=== PATIENT | female | born 1935 | race Caucasian/White ===

== ENCOUNTER → 2017-04-26 15:34 | Outpatient (CLI) | payer MEDICARE, SELFPAY ==
[2017-04-25 12:11] LABS: BUN 21 mg/dL (7-18); Creatinine, Serum 0.43 mg/dL (0.55-1.02); EST Glomerular Filtration Rate 149 mL/min (>60); Est Glom Filt Rate - Afr Amer 181 mL/min (>60)
--- NOTE | 2017-04-26 15:37 | MRI_ITS ---
STUDY: MRI LUMBAR SPINE WITH AND WITHOUT CONTRAST REASON FOR EXAM: Female, 82 years old. 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 7 ml of Gadavist contrast material was administered for the contrast portion of the examination. COMPARISON: None FINDINGS: T12-L1: Normal endplates. Normal disc height, hydration and morphology. Normal bilateral facet joints. Normal central canal and bilateral lateral recesses. Normal bilateral intervertebral neural foramina. Normal lumbar lordosis. There is no substantial scoliosis. Normal conus medullaris that terminates at the L1 level. L1-2: Normal endplates. Normal disc height, hydration and morphology. Normal bilateral facet joints. Normal central canal and bilateral lateral recesses. Normal bilateral intervertebral neural foramina. L2-3: Endplate spondylosis. Decreased disc height and small circumferential disc bulge. Degenerative changes of the bilateral facet joints. Mild narrowing of the central canal and bilateral intervertebral neural foramina. L3-4: Endplate spondylosis. Decreased disc height and small circumferential disc bulge. Degenerative changes of the bilateral facet joints. Mild narrowing of the central canal and bilateral intervertebral neural foramina. L4-5: Bilateral laminectomy and posterior fusion. Spinal canal and neuroforamina are not significantly narrowed. L5-S1: Endplate spondylosis. Central and paracentral disc herniation more prominent on the right side impinging on the right S1 nerve root. Degenerative changes of the bilateral facet joints. Mild narrowing of the central canal. Mild left and moderate right Intervertebral neural foramina. Normal visualized sacral ala. There is a right renal cyst. MRI/Spine Lumbar W/WO Contrast IMPRESSION: Multilevel degenerative changes, as described above. Bilateral laminectomy and posterior fusion at L4-5. Electronically Signed: Paula Hoff MD at 6:42 EST Tel , Service support ,
== END ==
PROVIDERS: Family Provider Family Medicine; PCP Family Medicine
DX: M43.16 Spondylolisthesis, lumbar region (principal)
CPT/HCPCS: 36415; 72158; 82565; 84520; A9585

== ENCOUNTER → 2017-05-30 10:19 | Outpatient (CLI) | payer MEDICARE, SELFPAY ==
--- NOTE | 2017-05-30 10:32 | MRI_ITS ---
STUDY: MRI CERVICAL SPINE WITHOUT CONTRAST REASON FOR EXAM: Female, 82 years old. Cervical spondylosis with leg weakness and difficulty walking. TECHNIQUE: Standardized fat and water weighted pulse sequences were obtained in the sagittal and axial planes. COMPARISON: MRI CERVICAL SPINE-October 30, 2015 FINDINGS: Normal foramen magnum and brainstem-cervical cord junction. Normal craniovertebral junction. There is hypertrophy of the transverse ligament of the atlas with mild posterior displacement of the superior and inferior longitudinal fibers of the cruciform ligament, producing minimal ventral thecal sac flattening, but without cervical cord impingement. There are mild degenerative changes in the anterior atlantoaxial articulation (sagittal T2 series 2, image 8), unchanged compared the prior examination of October 31, 2015. Normal odontoid process. Normal cervical lordosis. Normal vertebral bodies and posterior osseous elements. C2-3: Normal endplates. Normal disc height, signal and morphology. Normal central canal and intervertebral neural foramina. C3-4: There is disc desiccation, preservation of the disc height with minimal annular bulging. There is severe left-sided foraminal stenosis secondary to uncovertebral and apophyseal joint arthroses (axial T2 series 7, image 114), with probable neural impingement upon the exiting left C4 nerve root. Normal central canal with widely patent right C3-4 intervertebral neural foramina. C4-5: There is disc desiccation, preservation disc height without disc displacement. There is mild to moderate bilateral apophyseal joint arthroses (left greater than right), producing minimal left-sided foraminal stenosis but without suspected neural impingement. C5-6: There is disc desiccation, preservation disc height without disc displacement. Normal central canal and intervertebral neural foramina. C6-7: There is disc desiccation, preservation disc height, with a posterior right central extremely small broad-based disc protrusion measuring 2 x 8 mm (AP x transverse), which is visually unchanged in size as compared the prior examination of October 30, 2015. The difference in the measurement size of the disc protrusion is an interobserver variance. This small disc protrusion is producing minimal ventral thecal sac flattening, without cervical cord or radicular impingement. There remains a normal central canal patent intervertebral neural foramina. C7-T1: Normal endplates. Normal disc height, signal and morphology. Normal central canal and intervertebral neural foramina. Normal cervical cord. Normal visualized soft tissue structures. MRI/Spine Cervical (Routine) IMPRESSION: 1. Mild degenerative changes of the anterior atlantoaxial articulation. 2. Multilevel degenerative disc disease. 3. C3-4 severe left-sided foraminal stenosis, secondary to uncovertebral and apophyseal joint arthrosis, with probable neural impingement upon the exiting left C4 nerve root. 4. C4-5 mild to moderate bilateral apophyseal joint arthrosis but without suspected neural impingement. 5. C6-7 small posterior right central disc protrusion producing minimal ventral thecal sac flattening, unchanged as compared to prior examination of October 30, 2015, without cervical cord or radicular impingement. 6. Electronically Signed: Ignacio Colorado DO at 12:19 EDT Tel , Service support ,
== END ==
PROVIDERS: Family Provider Family Medicine; PCP Family Medicine
DX: M80.00XD Age-related osteoporosis with current pathological fracture, unspecified site, subsequent encounter for fracture with routine healing (principal); M47.12 Other spondylosis with myelopathy, cervical region
CPT/HCPCS: 72141

== ENCOUNTER → 2017-06-09 09:08 | Outpatient (CLI) | payer MEDICARE, SELFPAY ==
[2017-06-09 12:10] LABS: Absolute Lymphocyte Count 1.44 X10^3/ul (0.83-4.51); Absolute Neutrophil Count 3.6 X10^3/uL (2.0-7.7); Basophil# 0.03 X10^3/uL; Basophil% 0.5 % (0-1); Eosinophil# 0.17 X10^3/uL; Eosinophils% 2.9 % (0-5); Hematocrit 39.6 % (37-47); Hemoglobin 12.7 g/dl (12.0-15.0); Lymphocyte # 1.44 X10^3/ul (4.0); Lymphocyte % 24.8 % (19-41); Mean Corp Hgb Conc 32.1 g/gl (32-36); Mean Corpuscular Hgb 28.7 pg (27.0-32.0); Mean Corpuscular Volume 89.4 fL (81-99); Monocyte# 0.58 X10^3/uL; Neutrophil # 3.57 X10^3/uL (2.7-7.7); Neutrophil % 61.6 % (47-70); Platelet Count 303 K/mm3 (150-450); RBC Distribution Width CV 13.3 % (11.6-14.6); RBC Distribution Width SD 42.7 fl (35.1-43.9); Red Blood Count 4.43 M/mm3 (4.2-5.4); White Blood Count 5.8 K/mm3 (4.4-11.0)
[2017-06-09 12:15] LABS: POSITIVE COUNT NO; POSITIVE DIFFERENTIAL NO; POSITIVE MORPHOLOGY NO
[2017-06-09 12:54] LABS: AST(SGOT) 23 U/L (15-37); Alanine Aminotransfer ALT/SGPT 23 U/L (13-56); Albumin, Serum 3.9 g/dL (3.2-5.0); Alkaline Phosphatase 77 U/L (45-117); Anion Gap 7 (5-15); BUN 20 mg/dL (7-18); BUN/Creat Ratio 46.5 RATIO (10-20); Calcium,Total 9.6 mg/dL (8.5-10.1); Chloride 105 mmol/L (98-107); Cholesterol 282 mg/dL (200); Creatinine, Serum 0.43 mg/dL (0.55-1.02); EST Glomerular Filtration Rate 150 mL/min (>60); Est Glom Filt Rate - Afr Amer 182 mL/min (>60); Globulin 3.9 g/dL (2.2-4.2); Glucose 87 mg/dL (74-106); High Density Lipoprotein 65 mg/dL; Magnesium 2.2 mg/dL (1.6-2.6); Potassium 3.7 mmol/L (3.5-5.1); Protein, Total 7.8 g/dL (6.4-8.2); Sodium Level 140 mmol/L (136-145); T4 Free Direct 1.37 ng/dL (0.76-1.46); Thyroid Stim Hormone (TSH) 1.03 uIU/mL (0.358-3.74); Triglycerides 217 mg/dL; Very Low Density Lipoprotein 43 mg/dL (5-40)
[2017-06-10 10:41] LABS: Vitamin D,25 Hydroxy 46.4 ng/mL (29.95-100.01)
== END ==
PROVIDERS: Family Provider Family Medicine; PCP Family Medicine; Visit Provider Family Medicine
DX: I10 Essential (primary) hypertension (principal); E11.9 Type 2 diabetes mellitus without complications; I51.81 Takotsubo syndrome; E55.9 Vitamin D deficiency, unspecified; R00.2 Palpitations; E78.5 Hyperlipidemia, unspecified; Z79.899 Other long term (current) drug therapy
CPT/HCPCS: 36415; 80053; 80061; 82306; 83735; 84439; 84443; 85025

== ENCOUNTER → 2017-06-13 11:25 | Outpatient (CLI) | payer MEDICARE, SELFPAY | PROVIDERS: Family Provider Family Medicine; PCP Family Medicine; Visit Provider Family Medicine | DX: I51.81 Takotsubo syndrome (principal); R00.2 Palpitations | CPT/HCPCS: 93225; 93226 ==

== ENCOUNTER → 2017-06-21 10:45 | Outpatient (CLI) | payer MEDICARE, SELFPAY ==
[2017-06-21 12:47] LABS: Cholesterol 295 mg/dL (200); High Density Lipoprotein 72 mg/dL; Triglycerides 160 mg/dL; Very Low Density Lipoprotein 32 mg/dL (5-40)
== END ==
PROVIDERS: Family Provider Family Medicine; PCP Family Medicine; Visit Provider Family Medicine
DX: E11.9 Type 2 diabetes mellitus without complications (principal); E78.5 Hyperlipidemia, unspecified
CPT/HCPCS: 36415; 80061

== ENCOUNTER 2017-08-01 10:30 | Outpatient (RCR) | payer MEDICARE, SELFPAY ==
--- NOTE | 2017-07-05 11:57 | HP.PTEVAL ---
Patient's Visit Information DELFINA AVILA is a 82 year old F referred to Physical Therapy by J CARLOS CHEN with a diagnosis of SPONDYLOLITHESIS L45. Date of Evaluation: 07/05/17 Physical Therapist: Leatha Damon - Visit Plan Frequency: 2x /Week Duration: 4-6 Weeks Plan: AQUATIC THERAPY ONE TIME A WEEK ON LAND AND ONE TIME A WEEK IN THE POOL FOR POSTURE CORRECTION/STRENGTHENING, INSTRUCTION IN APPROPRIATE BODY MECHANICS AND ACTIVITY MODIFICATIONS. DLS STARTING WITH A NEUTRAL SPINE PROGRESSING ROM TOLERATED. DYLAN LE ROM, STRETCHING AND STRENGTHENING. HEP INSTRUCTION. PATIENT IS AGREEABLE WITH THIS POC. - Subjective Subjective: THIS PATIENT PRESENTS TO PT REPORTING SHE NEEDS TO GET SERIOUS ABOUT STENGTHEING AGAIN. STATES SHE HAD A FOLLOW UP WITH HER BACK SURGEON AND IS GOING TO SEE AN MARINE FUEL DOCK ATTENDANT ABOUT HER OSTEOPOROSIS. SHE REPORTS SHE HAD BEEN DOING HER HOME EX'S BUT NOT COMING IN TO [place] AND USING THE MACHINES. STATES THAT SHE FORGETS HOW TO DO SOME OF THE MACHINES. PATIENT REPORTS UP TO 6/10 LOW BACK PAIN. HER LOW BACK PAIN COMES AND GOES. SHE ALSO GETS SOME INTERMITTENT PAIN IN HER HIPS AND LEGS BUT HER CHIEF COMPLAINT IS LOW BACK PAIN. WORSE: PROLONGED STANDING AND WALKING. IN THE MORNING. BETTER: SITTING AND LYING DOWN. PATIENT DENIES ANY SIGNIFICANT CHANGES IN HER MEDICAL HISTORY SINCE HER LAST EPISODE OF CARE HERE IN PT. SHE REPORTS THE BACK SURGEON WANTS HER TO KEEP WEARING THE MAGNETIC BELT TO TRY TO PROMOTE MORE HEALING. - Objective THIS PATIENT AMBULATES INDEP'LY INTO PT WITH A FWW X > 300 FEET WITH FAIR CADANCE AND WITHOUT LOB. SHE IS WELL KNOW TO OUR DEPARTMENT. PLEASE SEE PAST PT NOTES FROM AFTER HER BACK AND HIP SURGERY. SHE WALKS WITH INCREASED TRUNK FLEXION AND DECREASED DYLAN STRIDE LENGTH STILL WALKING WITH A SHUFFLE TYPE GAIT PATTERN. PATIENT IS UNABLE TO TRANSFER FROM SIT TO STAND WITHOUT UE ASSIST. LUMBAR MVMT LOSS: MAJOR IN ALL PLANES EXCEPT FLEX WHICH IS MODERATE. DYLAN LE WEAKNESS: STRENGTH IN LE'S IS GROSSLY 5/5 WITH MMT'ING EXCEPT HIPS WHICH ARE GRADED 3+ TO 4-/5. PATIENTS HIP EXTENSORS AND ABDUCTORS ARE ESPECIALLY WEEK. - Goals Goal 1:: DECREASE C/O BACK AND LE SX'S. Goal Time Frame: 4-6 Weeks Goal 2:: IMPROVE PERSONAL CARE, LIFTING, WALKING, STANDING, SOCIAL LIFE AND HOMEMAKING FUNCTION. Goal Time Frame: 4-6 Weeks Goal 3:: INDEP LAND AND WATER EX PROGRAMS Goal Time Frame: 4-6 Weeks - Rehabilitation Potential Rehabilitation Potential: Fair - Anticipated Interventions Patient/Client Instruction: Educate patient on: Condition, Plan of Care, Risk Factors, Benefits of Fitness Program For the Purpose of:: To improve self management Therapeutic Exercise to Include: Strength training, Body mechanics, Postural training, Flexibilty training, Gait and locomotor training, In an aquatic setting, Dynamic Lumbar Stabilization For the Purpose of:: To decrease pain, To improve muscle performance and motor function, To increase tolerance to activity/condition/position, To improve performance and independence with ADL's, To improve ability of physical actions for home/community/work/leisure, To improve gait and locomotor functions Thank you for the opportunity to evaluate your patient. For Medicare and Medicare HMO plans, please review the plan of care and approve it. It will need to be FAXED BACK to us at [phone] for Medicare purposes. Please let me know if there are questions or concerns regarding this plan of care. Physician Signature: Date:
--- NOTE | 2017-08-01 12:59 | HP.PTDCSUM_ITS ---
HP - PT D/C Summary It has been my pleasure to treat DELFINA AVILA under orders from J CARLOS CHEN, for the diagnosis of SPONDYLOLITHESIS L45 for a total of 10 visit(s). Discharge Date: Please see the following information for a summary of their discharge status. - Subjective Subjective: PATIENT REPORTS SHE CAN DO HER WATER EX PROGRAM BY FOLLOWING HER SHEET NOW. SHE ALSO REPORTS BEING ABLE TO USE ALL OF THE MACHINES AND JUST NEEDS SOMEONE TO HELP OR DOUBLE CHECK SET UP ON 2 OF THEM. SHE STATES SHE PLANS TO COME AND DO HER POOL EX'S 2-3 TIMES A WEEK AND LAND IN BETWEEN SHE JUST DOESN'T LIKE OUR POOL HOURS. SHE IS EXPRESSING APPRECIATION FOR US HELPING HER RESUME EX. SHE STATES SHE IS STILL USING THE WALKER ALMOST ALL THE TIME. HAVING UP TO 6/10 LOW BACK PAIN THAT MAILY COMES WITH FATIGUE BUT STATES SHE IS PAINFREE MOST OF THE TIME IN SITTING AND LYING. - Pain Lumbar Spine Pain Intensity (Out of 10): 0 - Objective Objective/Function: UPON EXAM, THERE IS NO SIGNIFICANT CHANGE SINCE INITIAL EVAL BUT PATIENT IS MORE INDEP WITH RESUMING BOTH LAND AND WATER PRIOR EX PROGRAMS AGAIN TO A DEGREE AND HAS BEEN ADVISED OF APPROPRIATE EX'S. SHE MAY BENEFIT FROM HIRING A EMPLOYMENT PROGRAMS ANALYST TO HELP HER SET UP MACHINES OR HELP HER FOLLOW THE WRITTEN POOL AND LAND PROGRAMS THAT SHE HAS BEEN GIVEN. SHE HAS ALSO BEEN ADVISED OF CONTINUED RECOMMENDATION OF WALKER FOR SAFETY. THIS PATIENT AMBULATES INDEP'LY INTO PT WITH A FWW X > 300 FEET WITH FAIR CADANCE AND WITHOUT LOB. SHE WALKS WITH MILD INCREASED TRUNK FLEXION AND DECREASED DYLAN STRIDE LENGTH STILL WALKING WITH A SHUFFLE TYPE GAIT PATTERN. PATIENT IS UNABLE TO TRANSFER FROM SIT TO STAND WITHOUT UE ASSIST. LUMBAR MVMT LOSS: MAJOR IN ALL PLANES EXCEPT FLEX WHICH IS MODERATE. DYLAN LE WEAKNESS: STRENGTH IN LE'S IS GROSSLY 5/5 WITH MMT'ING EXCEPT HIPS WHICH ARE GRADED 4-/5. LUMBAR OSWESTRY SCORE HAS ONLY CHANGED FROM 20 TO 19. - Goals Goal 1:: DECREASE C/O BACK AND LE SX'S. Goal Progress: Not Progressing Goal 2:: IMPROVE PERSONAL CARE, LIFTING, WALKING, STANDING, SOCIAL LIFE AND HOMEMAKING FUNCTION. Goal Progress: Not Progressing Goal 3:: INDEP LAND AND WATER EX PROGRAMS Goal Progress: Goal Met - Plan Plan: D/C TO INDEP LAND AND WATER EX. PROGRAMS. - D/C Information If there are questions or concerns regarding this patient's physical therapy, please feel free to call me at [phone]. Thank you for the referral of this patient. Sincerely, Leatha Damon
== END 2017-08-01 19:00 | disposition home or self-care (01) ==
LOC: PT 10:30
PROVIDERS: Family Provider Family Medicine; PCP Family Medicine
DX: M43.16 Spondylolisthesis, lumbar region (principal)
CPT/HCPCS: 97110; 97113; 97162; 97530

== ENCOUNTER 2017-08-07 22:24 | Emergency (ER) | payer MEDICARE, SELFPAY ==
--- NOTE | 2017-08-07 | CT_ITS ---
STUDY: CT ABDOMEN AND PELVIS WITHOUT CONTRAST REASON FOR EXAM: Female, 82 years old. Blood in stool with diarrhea RADIATION DOSAGE (If Supplied By Facility): CTDIvol = ( 7.85 ) mGy, DLP = ( 394.18 ) mGycm TECHNIQUE: Transaxial 2.5 mm images were obtained from the dome of the diaphragm to the symphysis pubis with oral contrast, and without intravenous contrast. Sagittal and coronal images were reconstructed. This examination is limited for the evaluation of gastrointestinal, solid organs and vascular structures due to the lack of intravenous contrast. Individualized dose optimization techniques were used for this CT. COMPARISON: CT lumbar spine 2015. MRI lumbar spine 04/26/2017. FINDINGS: Marked hyperinflation of lung parenchyma, nonspecific compression of dependent parenchyma, fat-containing right posterior diaphragmatic hernia. The visualized portions of the heart are within normal limits. Normal liver. There is non-visualization of the gallbladder, which may be secondary to either contraction or a prior cholecystectomy. There are multiple benign calcified granulomata of the spleen and liver. There is diffuse atrophy of the pancreas. There is a duodenal diverticulum. Normal bilateral adrenal glands. Right upper renal pole cyst 4.2 cm. Normal left kidney. There is no obstructive uropathy, obstructive renal or ureteral calculi. Normal visualized stomach. Normal small intestine. There is a mobile cecum. There is wall thickening and edema with indistinct contour along the descending, less sigmoid colon. There are predominantly sigmoid diverticula. The appendix is visualized and appears normal. There is minimal atherosclerotic calcification of the abdominal aorta, without a demonstrated aneurysm. Normal inferior vena cava. Normal retroperitoneum. Normal urinary bladder. There is atrophy of the uterus. There is trace pelvic fluid. Normal abdominal wall. There are diffuse degenerative changes of the visualized lumbar spine. Status post total right hip arthroplasty, ORIF of the left femur, status post laminectomy with pedicle fusion L4 and L5 with disc spacer placement, osteopenia. Grade 1 anterolisthesis L4 on L5. There is loss of vertebral body height involving the L5 vertebral body which is new since 10/2015.. CT/Abdomen/Pel W ORAL Cont Only IMPRESSION: Colitis of the descending colon, possible minimal inflammation of the sigmoid colon. There are diverticula, however this may be due to non diverticular inflammatory changes. There is no appendicitis, ascites, abscess, collection, perforation or obstruction. Right renal cyst. Remote granulomatous exposure. Trace pelvic fluid likely related to colonic inflammation. Postsurgical lumbar spine changes, loss of vertebral body height L5 which is stable since MRI lumbar spine 04/26/2017. Other nonacute findings as outlined above. Electronically Signed: Lynda Sanchez MD at 3:23 EDT , Service support ,
[2017-08-07 22:25] VITALS: BP 109/60; PULSE 47; RESP 16; TEMP 36.9; O2SAT 98; BMI 19.8
[2017-08-07 22:58] LABS: Absolute Lymphocyte Count 2.19 X10^3/ul (0.83-4.51); Absolute Neutrophil Count 11.7 X10^3/uL (2.0-7.7); Basophil# 0.03 X10^3/uL; Basophil% 0.2 % (0-1); Eosinophil# 0.09 X10^3/uL; Eosinophils% 0.6 % (0-5); Hematocrit 44.3 % (37-47); Hemoglobin 14.5 g/dl (12.0-15.0); Lymphocyte # 2.19 X10^3/ul (4.0); Lymphocyte % 14.3 % (19-41); Mean Corp Hgb Conc 32.7 g/gl (32-36); Mean Corpuscular Hgb 28.6 pg (27.0-32.0); Mean Corpuscular Volume 87.4 fL (81-99); Mean Platelet Vol. 9.4 fl (6.2-12.0); Monocyte# 1.28 X10^3/uL; Monocyte% 8.4 % (0-10); Neutrophil # 11.66 X10^3/uL (2.7-7.7); Neutrophil % 76.4 % (47-70); Platelet Count 283 K/mm3 (150-450); RBC Distribution Width CV 12.9 % (11.6-14.6); Red Blood Count 5.07 M/mm3 (4.2-5.4); White Blood Count 15.3 K/mm3 (4.4-11.0)
[2017-08-07] MEDS: 0.9% Normal Saline 1,000 ML 125 ML IV (22:59)
[2017-08-07 23:10] LABS: Prothrombin Time (Protime)PT. 13.3 SECONDS (11.7-14.9)
[2017-08-07 23:11] LABS: POSITIVE COUNT NO; POSITIVE DIFFERENTIAL NO; POSITIVE MORPHOLOGY NO
--- NOTE | 2017-08-07 23:12 | ED.VISSUMM ---
- ER Visit Summary Date of Service: 08/07/17 Chief Complaint: [] Lower GI bleed History of Present Illness: The patient is a 82 F [] complaining of lower GI bleed beginning yesterday. She reports she noticed originally dark tarry stools which then progressed to bright red blood. She reports she had another significant bloody bowel movement prior to arrival prompting her visit today to the emergency department. Denies previous history of GI bleed. Reports abdominal cramping. Denies nausea or vomiting. Denies chest pain or shortness of breath. Physical Examination: [] Afebrile, vital signs stable. 82-year-old female no acute distress. Conversational. Cardiovascular exam is regular rate and rhythm. Lungs are clear to auscultation. Abdomen is soft with mild lower abdominal quadrant cramping. She has small external nonthrombosed nonbloody hemorrhoids with obvious blood on digital rectal examination. No lower extremity edema. Test Results: [] CT abdomen/pelvis with p.o. contrast: Suggestive of colitis. Labs: Elevated white blood cell count 15.3. Hemoglobin 14.5. BUN 24 otherwise elect lites are normal. LFTs normal. INR 1.0. Lactic acid 2.0 #1. Repeat lactic acid was 1.1. EKG: Normal sinus rhythm, rate 71 with no ischemic changes or ectopy. Emergency Department Course and Treatment: [] Patient was evaluated for lower GI bleed. She was observed in the emergency department for approximately 8 hours. She had no further bowel movements. She did have one nonbloody bowel movement. She is hemodynamically stable. She underwent CT of the abdomen and pelvis with p.o. contrast reveals inflammation of the bowel consistent with colitis. She was given intravenous Cipro and intravenous Flagyl. She will be given instructions for follow-up with gastroenterology. She will be given outpatient prescriptions for Cipro and Flagyl and instructed to return should she have further bloody bowel movements. Treatment Plan: [] Follow-up with PCP and/or power brake operator. Prescriptions for Cipro and Flagyl. Disposition: [] Discharge, stable. Impression: [] Colitis. Lower GI bleed This note was generated with [employer] software. It may contain incorrect words, spelling, and punctuation that were not noted in review of the chart prior to signing ED Disposition - Plan for ED Patient: Chief Complaint: GI Bleed Referrals: Bill Castaneda MD [Primary Care Provider] -
--- NOTE | 2017-08-07 23:15 | ED.DCSUM_ITS ---
- ER Visit Summary Date of Service: 08/07/17 Chief Complaint: [] Lower GI bleed History of Present Illness: The patient is a 82 F [] complaining of lower GI bleed beginning yesterday. She reports she noticed originally dark tarry stools which then progressed to bright red blood. She reports she had another significant bloody bowel movement prior to arrival prompting her visit today to the emergency department. Denies previous history of GI bleed. Reports abdominal cramping. Denies nausea or vomiting. Denies chest pain or shortness of breath. Physical Examination: [] Afebrile, vital signs stable. 82-year-old female no acute distress. Conversational. Cardiovascular exam is regular rate and rhythm. Lungs are clear to auscultation. Abdomen is soft with mild lower abdominal quadrant cramping. She has small external nonthrombosed nonbloody hemorrhoids with obvious blood on digital rectal examination. No lower extremity edema. Test Results: [] CT abdomen/pelvis with p.o. contrast: Suggestive of colitis. Labs: Elevated white blood cell count 15.3. Hemoglobin 14.5. BUN 24 otherwise elect lites are normal. LFTs normal. INR 1.0. Lactic acid 2.0 #1. Repeat lactic acid was 1.1. EKG: Normal sinus rhythm, rate 71 with no ischemic changes or ectopy. Emergency Department Course and Treatment: [] Patient was evaluated for lower GI bleed. She was observed in the emergency department for approximately 8 hours. She had no further bowel movements. She did have one nonbloody bowel movement. She is hemodynamically stable. She underwent CT of the abdomen and pelvis with p.o. contrast reveals inflammation of the bowel consistent with colitis. She was given intravenous Cipro and intravenous Flagyl. She will be given instructions for follow-up with gastroenterology. She will be given outpatient prescriptions for Cipro and Flagyl and instructed to return should she have further bloody bowel movements. Treatment Plan: [] Follow-up with PCP and/or stock handler. Prescriptions for Cipro and Flagyl. Disposition: [] Discharge, stable. Impression: [] Colitis. Lower GI bleed This note was generated with [employer] software. It may contain incorrect words, spelling, and punctuation that were not noted in review of the chart prior to signing ED Disposition - Plan for ED Patient: Chief Complaint: GI Bleed Referrals: Bill Castaneda MD [Primary Care Provider] -
[2017-08-07 23:24] LABS: ALB/GLOB Ratio 0.9 RATIO (0.9-2.4); AST(SGOT) 18 U/L (15-37); Alanine Aminotransfer ALT/SGPT 21 U/L (13-56); Albumin, Serum 3.7 g/dL (3.2-5.0); Alkaline Phosphatase 75 U/L (45-117); Anion Gap 7 (5-15); BUN 24 mg/dL (7-18); BUN/Creat Ratio 29.5 RATIO (10-20); Calcium,Total 9.6 mg/dL (8.5-10.1); Chloride 103 mmol/L (98-107); Creatinine, Serum 0.81 mg/dL (0.55-1.02); EST Glomerular Filtration Rate 72 mL/min (>60); Est Glom Filt Rate - Afr Amer 87 mL/min (>60); Estimated Creatinine Clearance 45.74 ml/min; Globulin 3.9 g/dL (2.2-4.2); Glucose 149 mg/dL (74-106); Potassium 3.7 mmol/L (3.5-5.1); Protein, Total 7.6 g/dL (6.4-8.2); Sodium Level 138 mmol/L (136-145)
[2017-08-08 02:14] VITALS: BP 165/92; PULSE 75; RESP 16; O2SAT 97
[2017-08-08 03:05] LABS: Reflex Lactate? Y
[2017-08-08] MEDS: Ciprofloxacin 400 MG/200 ML BAG 200 MG IV (03:35)
[2017-08-08 04:39] VITALS: RESP 18
[2017-08-08 04:44] LABS: Lactic Acid 1.1 mmol/L (0.4-2.0)
--- NOTE | 2017-08-08 06:21 | ED.DEP ---
ED Disposition - Plan for ED Patient: Disposition: Home or Assisted Living Chief Complaint: GI Bleed Instructions: ED Hematochezia Stable Prescriptions: Metronidazole [Flagyl] 500 mg PO Q8H #21 tab Ciprofloxacin [Cipro] 500 mg PO BID #14 tab Referrals: Bill Castaneda MD [Primary Care Provider] -
[2017-08-08 06:43] VITALS: BP 139/77; PULSE 58; RESP 18; O2SAT 99
== END 2017-08-08 06:46 | disposition home or self-care (01) ==
PROVIDERS: Emergency Provider Emergency Medicine; Family Provider Family Medicine; PCP Family Medicine
DX: K92.2 Gastrointestinal hemorrhage, unspecified (principal); K52.9 Noninfective gastroenteritis and colitis, unspecified; K64.4 Residual hemorrhoidal skin tags; K21.9 Gastro-esophageal reflux disease without esophagitis; I10 Essential (primary) hypertension; Z79.899 Other long term (current) drug therapy; Z79.82 Long term (current) use of aspirin
CPT/HCPCS: 74176; 80053; 82274; 83605; 85025; 85610; 93005; 99283; J7030; A4216; J0744

== ENCOUNTER → 2017-09-20 10:48 | Outpatient (CLI) | payer MEDICARE, SELFPAY ==
[2017-09-20 12:10] LABS: Absolute Lymphocyte Count 1.56 X10^3/ul (0.83-4.51); Absolute Neutrophil Count 3.4 X10^3/uL (2.0-7.7); Basophil# 0.02 X10^3/uL; Basophil% 0.4 % (0-1); Eosinophils% 1.8 % (0-5); Hematocrit 41.7 % (37-47); Hemoglobin 13.6 g/dl (12.0-15.0); Lymphocyte # 1.56 X10^3/ul (4.0); Lymphocyte % 27.8 % (19-41); Mean Corp Hgb Conc 32.6 g/gl (32-36); Mean Corpuscular Hgb 28.9 pg (27.0-32.0); Mean Corpuscular Volume 88.7 fL (81-99); Mean Platelet Vol. 10.2 fl (6.2-12.0); Monocyte# 0.55 X10^3/uL; Monocyte% 9.8 % (0-10); Neutrophil # 3.39 X10^3/uL (2.7-7.7); Neutrophil % 60.2 % (47-70); POSITIVE COUNT NO; POSITIVE DIFFERENTIAL NO; POSITIVE MORPHOLOGY NO; Platelet Count 276 K/mm3 (150-450); RBC Distribution Width SD 42.2 fl (35.1-43.9); White Blood Count 5.6 K/mm3 (4.4-11.0)
[2017-09-20 12:33] LABS: Anion Gap 8 (5-15); BUN 18 mg/dL (7-18); BUN/Creat Ratio 33.3 RATIO (10-20); Calcium,Total 9.9 mg/dL (8.5-10.1); Chloride 106 mmol/L (98-107); Creatinine, Serum 0.54 mg/dL (0.55-1.02); EST Glomerular Filtration Rate 115 mL/min (>60); Est Glom Filt Rate - Afr Amer 140 mL/min (>60); Glucose 85 mg/dL (74-106); Potassium 4.1 mmol/L (3.5-5.1); Sodium Level 143 mmol/L (136-145); Thyroid Stim Hormone (TSH) 0.38 uIU/mL (0.358-3.74)
[2017-09-20 12:35] LABS: Hemoglobin A1c 5.6 % (4.2-6.3)
== END ==
PROVIDERS: Visit Provider Family Medicine
DX: E11.9 Type 2 diabetes mellitus without complications (principal); E55.9 Vitamin D deficiency, unspecified; E78.5 Hyperlipidemia, unspecified; I10 Essential (primary) hypertension
CPT/HCPCS: 36415; 80048; 82306; 83036; 84439; 84443; 85025

== ENCOUNTER → 2017-12-19 09:50 | Outpatient (CLI) | payer MEDICARE, SELFPAY ==
[2017-12-19 10:55] LABS: AST(SGOT) 18 U/L (15-37); Alanine Aminotransfer ALT/SGPT 19 U/L (13-56); Albumin, Serum 3.8 g/dL (3.2-5.0); Alkaline Phosphatase 70 U/L (45-117); Cholesterol 244 mg/dL (200); Globulin 3.7 g/dL (2.2-4.2); High Density Lipoprotein 66 mg/dL; Protein, Total 7.5 g/dL (6.4-8.2); Triglycerides 198 mg/dL; Very Low Density Lipoprotein 40 mg/dL (5-40)
== END ==
PROVIDERS: Family Provider Family Medicine; PCP Family Medicine; Referring Provider Internal Medicine Cardiovascular Disease; Visit Provider Internal Medicine Cardiovascular Disease
DX: E78.5 Hyperlipidemia, unspecified (principal); I25.2 Old myocardial infarction; E11.51 Type 2 diabetes mellitus with diabetic peripheral angiopathy without gangrene; E11.9 Type 2 diabetes mellitus without complications
CPT/HCPCS: 36415; 80061; 80076

== ENCOUNTER 2018-01-17 11:40 | Emergency (ER) | payer MEDICARE, SELFPAY ==
[2018-01-17 11:41] VITALS: BP 165/74; PULSE 66; RESP 15; TEMP 36.9; O2SAT 98; BMI 24.7
--- NOTE | 2018-01-17 12:50 | ED.DCSUM_ITS ---
- ER Visit Summary Date of Service: 01/17/18 Chief Complaint: Fell getting out of the shower History of Present Illness: The patient is a 82 F past medical history of diet- controlled diabetes, A. fib on no blood thinners besides aspirin and hypertension. States she was getting out of shower today slipped fell landing on her buttock. Struck her head. No LOC. She is only on half a baby aspirin a day. She denies any headache. She denies any LOC. She did. By is some mild low back pain. She denies any hip or pelvis pain. Physical Examination: Older female. Vital signs are stable afebrile. She is in no distress. H EENT exam pupils round reactive light. As mentioned trauma to her face or scalp. Scalp nontender. No hematomas. No lacerations. C-spine nontender. Trachea midline. Lungs clear to auscultation bilaterally. Heart regular rhythm no murmur. Chest wall nontender. Abdomen soft nontender. Normal bowel sounds no peritoneal signs. Pelvic girdle intact. She is moving all 4 extremities. She has some numbness or lower extremities which is chronic. Dorsi and plantar flexion are intact. She can lift either leg off the bed. Upper extremities are nontender normal range of motion normal security support analyst strength. Back no signs of trauma. Mild tenderness over her lower lumbar spine. No ecchymosis or bruising. Neurologically she is awake and alert. With no focal motor deficits. Test Results: Lumbar spine x-rays show pneumonia. Status post L4-5 laminectomy. Emergency Department Course and Treatment: Patient did not want anything for pain at this time. Later in the patient's ER visit nurse was able to get her up and have her walk to the bathroom with assistance. She could also use her walker like she does at home. Treatment Plan: Patient will be discharged to home. Tylenol for pain. Disposition: Discharge Impression: Acute fall with lumbar contusion This note was generated with [employer] dictation software. It may contain incorrect words, spelling, and punctuation that were not noted in review of the chart prior to signing ED Disposition - Plan for ED Patient: Chief Complaint: Fall Referrals: Bill Castaneda MD [Primary Care Provider] -
[2018-01-17 13:31] VITALS: O2SAT 98
--- NOTE | 2018-01-17 13:45 | RAD_ITS ---
STUDY: X-RAY - LUMBAR SPINE REASON FOR EXAM: Female, 82 years old. History of fall. TECHNIQUE: 3 view(s) of the lumbar spine were obtained. COMPARISON: None FINDINGS: Normal lumbar lordosis. There is no substantial scoliosis. There is a normal alignment of the vertebrae. The patient is status post laminectomy and interpedicular screw fixation at the L4-L5 level. Prosthetic disc spacer is seen. The patient is status post right total hip replacement. The soft tissue structures are unremarkable. RAD/Lumbar Spine 2 or 3 Views IMPRESSION: Status post laminectomy and fusion at the L4-L5 level. Electronically Signed: Javier Ledbetter MD at 14:15 EST Tel [phone], Service support ,
--- NOTE | 2018-01-17 13:47 | EKG12_ITS ---
Test Reason : FALL Blood Pressure : / mmHG Vent. Rate : 059 BPM Atrial Rate : 059 BPM P-R Int : 170 ms QRS Dur : 096 ms QT Int : 436 ms P-R-T Axes : 058 -14 060 degrees QTc Int : 431 ms Sinus bradycardia Otherwise normal ECG Confirmed by PRANEETH QUEEN, ROCHELLE ([id number]), assistant film editor KIA PIKE ([id number] on 01/19/2018 3:24:05 PM Referred By: ZOILA Confirmed By:ROCHELLE DACOSTA MD
[2018-01-17 14:20] VITALS: BP 138/79; PULSE 67; RESP 15; O2SAT 97
[2018-01-17] MEDS: Ondansetron ODT 4 MG Tablet PO (14:33)
--- NOTE | 2018-01-17 15:43 | ED.DEP ---
ED Disposition - Plan for ED Patient: Disposition: Home or Assisted Living Chief Complaint: Fall Instructions: ED Mechanical Fall, ED Contusion Back Referrals: Bill Castaneda MD [Primary Care Provider] - Additional Instructions: He still sores. Tylenol for pain. Follow-up with your primary care physician or your back surgeon.
[2018-01-17 15:49] VITALS: PULSE 73; RESP 16; O2SAT 98
== END 2018-01-17 15:51 | disposition home or self-care (01) ==
PROVIDERS: Emergency Provider Emergency Medicine; Family Provider Family Medicine; PCP Family Medicine
DX: S30.0XXA Contusion of lower back and pelvis, initial encounter (principal); W01.0XXA Fall on same level from slipping, tripping and stumbling without subsequent striking against object, initial encounter; Y93.9 Activity, unspecified; Y92.9 Unspecified place or not applicable; R20.0 Anesthesia of skin; E11.9 Type 2 diabetes mellitus without complications; I10 Essential (primary) hypertension; I48.91 Unspecified atrial fibrillation; Z79.82 Long term (current) use of aspirin; Z79.899 Other long term (current) drug therapy
CPT/HCPCS: 72100; 93005; 99284

== ENCOUNTER → 2018-06-14 11:26 | Outpatient (CLI) | payer MEDICARE, SELFPAY ==
[2018-06-14 11:30] LABS: Mucous, Urine 0 SEEN /hpf (<or=2+)
[2018-06-14 15:36] LABS: Color, Urine Yellow (Yellow); Glucose, Dipstick Normal (Normal); Ketone-Dipstick Negative (Negative); Leukocyte Esterase-Dipstick 500 /ul (Negative); Nitrite-Dipstick Positive (Negative); Occult Blood-Urine 25 /ul (Negative); Protein-Dipstick Negative (Negative); Specific Gravity, Urine 1.015 (1.002-1.030); Urine Bilirubin Dipstick Negative (Negative); Urine Clarity Sl. Cloudy (Clear); Urine Urobilinogen Normal (Normal)
[2018-06-14 15:44] LABS: Red Blood Cells-Urine 0-5 SEEN /hpf (0-5); White Blood Cells 25-50 SEEN /hpf (0-5)
[2018-06-14 15:45] LABS: Absolute Lymphocyte Count 1.61 X10^3/ul (0.83-4.51); Absolute Neutrophil Count 3.1 X10^3/uL (2.0-7.7); Bacteria 1+ /hpf (None Seen); Basophil# 0.02 X10^3/uL; Basophil% 0.4 % (0-1); Eosinophils% 1.9 % (0-5); Hematocrit 45.2 % (37-47); Hemoglobin 14.4 g/dl (12.0-15.0); Lymphocyte # 1.61 X10^3/ul (4.0); Lymphocyte % 30.8 % (19-41); Mean Corp Hgb Conc 31.9 g/gl (32-36); Mean Corpuscular Volume 87.9 fL (81-99); Mean Platelet Vol. 10.1 fl (6.2-12.0); Monocyte# 0.39 X10^3/uL; Monocyte% 7.5 % (0-10); Neutrophil % 59.4 % (47-70); Platelet Count 331 K/mm3 (150-450); RBC Distribution Width CV 13.2 % (11.6-14.6); RBC Distribution Width SD 42.3 fl (35.1-43.9); Red Blood Count 5.14 M/mm3 (4.2-5.4); Squamous Epithelial Cells - UA 0-5 SEEN /hpf (5-10); White Blood Count 5.2 K/mm3 (4.4-11.0)
[2018-06-14 15:49] LABS: POSITIVE COUNT NO; POSITIVE DIFFERENTIAL NO; POSITIVE MORPHOLOGY NO
[2018-06-14 16:07] LABS: Vitamin D,25 Hydroxy 49.7 ng/mL (29.95-100.01)
[2018-06-14 16:08] LABS: Magnesium 1.9 mg/dL (1.6-2.6); T4 Free Direct 1.52 ng/dL (0.76-1.46); Thyroid Stim Hormone (TSH) 0.35 uIU/mL (0.358-3.74)
== END ==
PROVIDERS: Family Provider Family Medicine; PCP Family Medicine; Visit Provider Family Medicine
DX: E03.9 Hypothyroidism, unspecified (principal); R73.01 Impaired fasting glucose; I10 Essential (primary) hypertension; E55.9 Vitamin D deficiency, unspecified; I49.1 Atrial premature depolarization; R35.0 Frequency of micturition
CPT/HCPCS: 36415; 81001; 82306; 83735; 84439; 84443; 85025; 87086; 87088; 87186

== ENCOUNTER → 2018-06-19 12:20 | Outpatient (CLI) | payer MEDICARE, SELFPAY ==
[2018-06-19 09:48] VITALS: BMI 25.1
[2018-06-19 13:50] LABS: AST(SGOT) 26 U/L (15-37); Alanine Aminotransfer ALT/SGPT 26 U/L (13-56); Albumin, Serum 4.3 g/dL (3.2-5.0); Alkaline Phosphatase 68 U/L (45-117); Bilirubin, Direct 0.14 mg/dL (0.00-0.30); Cholesterol 246 mg/dL (200); Globulin 3.4 g/dL (2.2-4.2); High Density Lipoprotein 75 mg/dL; Protein, Total 7.7 g/dL (6.4-8.2); Triglycerides 144 mg/dL; Very Low Density Lipoprotein 29 mg/dL (5-40)
== END ==
PROVIDERS: Family Provider Family Medicine; PCP Family Medicine; Referring Provider Internal Medicine Cardiovascular Disease; Visit Provider Internal Medicine Cardiovascular Disease
DX: E78.5 Hyperlipidemia, unspecified (principal)
CPT/HCPCS: 36415; 80061; 80076

== ENCOUNTER 2018-07-07 11:00 | Outpatient (RCR) | payer MEDICARE, SELFPAY ==
--- NOTE | 2018-06-07 13:14 | HP.PTEVAL ---
Patient's Visit Information DELFINA AVILA is a 83 year old F referred to Physical Therapy by VINCE Orr with a diagnosis of OSTEOPOROSIS, HIP FX, CERVICAL/LUMBAR SPONDYLOSIS. Date of Evaluation: 06/07/18 Physical Therapist: Leatha Damon, PT, Cert MDT - Visit Plan Frequency: 2x /Week Duration: 4-6 Weeks Plan: ONE LAND VISIT TO ASSESS SAFETY FOR RESUMPTION OF INDEP GYM EX PROGRAM AND HOME EX PROGRAM WITH WRITTEN INSTRUCTIONS NEEDED. AQUATIC THERAPY FOR PAIN RELEIF, POSTURE CORRECTION/STRENGTHENING, DLS WITH A NEUTRAL SPINE TOLERATED. DYLAN UE & LE ROM, STRETCHING AND STRENGTHENING. ASSESSMENT OF SAFETY FOR INDEP POOL EX AT FACILITY OF PATIENTS CHOICE ONCE FORMAL PHYSICAL THERAPY CONCLUDES. - Subjective Findings: Work/Leisure: RETIRED. Present symptoms: DIFFICULTY WALKING AND KEEPING BALANCE. BACK PAIN AND LLE NUMBNESS TO TOES. DEPENDENCY ON WALKER. AFRAID OF FALLING. HAS HAD A COUPLE FALLS. NOT ABLE TO GET AROUND AND DO MUCH I WAS ABLE TO DO. HAS HELP BUT LIVES ALONE. SON LIVES NEXT DOOR. Present since: CHRONIC. Pain Scale: WORST 9-10/10, LEAST 0/10. Currently: 0/10 sitting, 6/10 walking into PT today. Commenced as a result of: BONE PROBLEMS. Worse: STANDING AND WALKING. Better: SITTING. Disturbed sleep: NO. Previous history/Previous treatment: PHYSICAL THERPAY. NO RECENT INJECTIONS. BACK SURGERY. Gait: PATIENT REPORTS SHE IS WALKER DEPENDENT, UNSTEADY AND AFRAID OF FALLING . STATES SHE HAS HAD SEVERAL FALLS WITH THE LAST FALL BEING IN APR BUT NO APPARENT INJURY. STATES SHE JUST LOST HER BALANCE. HAD A BACK X-RAY IN JAN 2018 AFTER A FALL TOO. Difficulty initiating urinatin: NO. Accidents: NO. Unexplained weight loss: NO. Imaging: LUMBAR X-RAY JAN 2018. PMH/Recent major surgery: DYLAN THR'S AND LUMBAR SURGERY. PATIENT IS GOING TO BRING A LIST OF HER SURGERY DATES NEXT VISIT. OSTEOPOROSIS. HYPOTHYROIDISM, HTN, HIGH CHOLESTEROL. Other: FOLLOW UP WITH BACK SURGEON PENDING NEXT WEEK. PATIENT REPORTS SHE HASN'T BEEN ABLE TO WALK WITHOUT THE WALKER WELL FOR A LONG TIME. PATIENT REPORTS SHE HAS NOT COME IN TO EX A MEMBER HERE AT [facility] SINCE BEFORE WINTER - I JUST DIDN'T GET OUT MUCH OVER THE WINTER. HAS CONTINUED TO TRY TO DO HER HOME EX'S THOUGH. - Objective Sitting/Standing Posture: POOR. Lordosis: REDUCED. Active Correction of posture: BETTER. Other Observations: INDEP GAIT INTO PT WITH FWW X APPROX 300 FEET WITH VERY SLOW CADANCE, VERY SHORT DYLAN STRIDE LENGTH WITH SHUFFLE TYPE GAIT PATTERN AND MODERATE DEPENDENCE ON WALKDER FOR BALANCE. C/O INCREASE BACK PAIN WITH WALKING. DYLAN UE DEPENDENT TO TRANSFER FROM SIT TO STAND. PATIENT STANDS AND WALKS WITH EXCESSIVE TRUNK FLEXION. Motor deficit: DYLAN LE WEAKNESS: RIGHT HIP 4-/5, KNEE 4/5, ANKLE 5/5. LEFT HIP 3-/5, KNEE 4-/5, ANKLE 4/5. Sensory deficit: DECREASED LLE LIGHT TOUCH SENSATION COMPARED TO RIGHT. ROM deficit: TIGHT DYLAN HIP FLEXORS, HS'S AND GASTROC SOLEUS COMPLEX'S. Dural Signs: NEGATIVE DYLAN LE'S. Lumbar mvmt loss: flex - MOD. ext - RODOLFO. R SG - RODOLFO. L SG - RODOLFO. Core strength: POOR. Palpation: NO ACUTE BACK, NECK OR HIP TENDERNESS. OTHER: PATIENT IS ADMITTEDLY A RELATIVELY POOR HISTORIAN TODAY AND PLANS TO BRING A LIST OF HER PAST SURGERIES AND MEDICAL CONDITIONS NEXT VISIT. - Goals Goal 1:: INDEP AND SAFE GAIT ALL SURFACES WITH LEAST ASSISTIVE DEVICE Goal Time Frame: 4-6 Weeks Goal 2:: IMPROVE STANDING AND WALKING FUNCTION Goal Time Frame: 4-6 Weeks Goal 3:: INDEP POOL, GYM AND HOME EX PROGRAMS APPROPRIATE. - Rehabilitation Potential Rehabilitation Potential: Fair - Anticipated Interventions Patient/Client Instruction: Educate patient on: Condition, Plan of Care, Risk Factors, Benefits of Fitness Program For the Purpose of:: To improve self management Therapeutic Exercise to Include: Strength training, Body mechanics, Postural training, Flexibilty training, In an aquatic setting, Dynamic Lumbar Stabilization, Scapular Strength/Stabilization For the Purpose of:: To decrease pain, To improve muscle performance and motor function, To increase tolerance to activity/condition/position, To improve ability of physical actions for home/community/work/leisure, To improve gait and locomotor functions Thank you for the opportunity to evaluate your patient. For Medicare and Medicare HMO plans, please review the plan of care and approve it. It will need to be FAXED BACK to us at [phone] for Medicare purposes. For Medicare only, by signing this I certify the plan of care. Please let me know if there are questions or concerns regarding this plan of care. Physician Signature: Date:
--- NOTE | 2018-07-07 12:19 | HP.PTDCSUM ---
HP - PT D/C Summary It has been my pleasure to treat DELFINA AVILA under orders from VINCE Orr, for the diagnosis of OSTEOPOROSIS, HIP FX, CERVICAL/LUMBAR SPONDYLOSIS for a total of 9 visit(s). Discharge Date: 07/07/18 Please see the following information for a summary of their discharge status. - Subjective Subjective: PATIENT REPORTS WATER THERAPY HAS BEEN HELPFUL AND SHE PLANS TO CONTINUE INDEP'LY A COUPLE TIMES A WEEK. SAW DR. CHEN (BACK SURGEON) YESTERDAY. CAT SCAN, MRI AND NCT OF LE'S? PENDING. STATES DR. CHEN ENCOURAGED HER TO CONTINUE WATER EX. PATIENT REPORTS THE WATER THERAPY REALLY HELPS AND SHE CAN SEE PROGRESS BUT STILL VERY LIMITED. ALSO RECENTLY SAW DR. GUZMÁN RECENTLY - SHE STATES EVERYTHING WAS GOING GOOD AT THAT JUNAID'T EXCEPT HER WALKING. PATIENT REPORTS SHE HASN'T HAD ANY FALLS SINCE SHE STARTED THIS EPISODE OF CARE WITH PT. PATIENT REPORTS HER SURGEON DOES NOT WANT HER DOING MORE THAN WHAT SHE IS ALREADY DOING UNTIL THEY GET HER TEST RESULTS AND COME UP WITH A PLAN. - Pain Lumbar Spine Pain Intensity (Out of 10): 0 - Overall Improvement % Improvement: 10 - Objective Objective/Function: THERE ARE NO SIGNIFICANT OBJECTIVE CHANGES WITH TESTING TODAY COMPARED TO INITIAL EVAL EXCEPT PATIENT HAS BEEN ABLE TO TOLERATE AND ADVANCE WITH A SLOW PROGRESSION OF STRENGTHENING IN THE POOL. WITH MMT'ING IN THE CLINIC TODAY HER LEG STRENGTH IS THE SAME OR SLIGHLTY WEAKER THAN TESTING 06/07/18. SHE WAS ON THE NUSTEP BEFORE STARTING THERAPY TODAY AND GOT BACK ON IT INDEP'LY AFTER OUR SESSION.SHE IS INDEP WITH A POOL PROGRAM AND HER LAND EX ROUTINE HAS BEEN UPDATED BASED ON HER CURRENT ABILITY.SHE STILL HAS SIGNIFICANT TRUNK AND DYLAN LE TIGHTNESS AND WEAKNESS FUNCTIONALLY. SHE HAS NO PAIN IN SITTING AND MMT'ING HAS NOT SIGNIFICANTLY CHANGED BUT HER PAIN QUICKLY STARTS AND INCREASES WITH WALKING ALONG WITH HER LE WEAKNESS. SHE IS STILL WALKER DEPENDENT FOR SAFETY AND SHE IS UNABLE TO STAND UP STRAIGHT. VERY WEAK GLUTS AND DORSIFLEXORS IN STANDING AND WALKING. SHE HAS FURTHER TESTING ORDERED BY SURGEON PENDING AND SHE IS INDEP WITH LAND AND WATER EX'S AT THIS TIME AND PLANS TO CONTINUE INDEP'LY PENDING TEST RESULTS. - Goals Goal 1:: INDEP AND SAFE GAIT ALL SURFACES WITH LEAST ASSISTIVE DEVICE Goal Progress: Not Progressing Goal 2:: IMPROVE STANDING AND WALKING FUNCTION Goal Progress: Not Progressing Goal 3:: INDEP POOL, GYM AND HOME EX PROGRAMS APPROPRIATE. Goal Progress: Goal Met - Plan Plan: D/C TO INDEP EX ON LAND AND IN THE WATER. PATIENT AGREEABLE. - D/C Information If there are questions or concerns regarding this patient's physical therapy, please feel free to call me at [phone]. Thank you for the referral of this patient. Sincerely, Leatha Damon, PT, Cert MDT
== END 2018-07-07 19:00 | disposition home or self-care (01) ==
LOC: PT 11:00
PROVIDERS: Family Provider Family Medicine; PCP Family Medicine
DX: M80.00XD Age-related osteoporosis with current pathological fracture, unspecified site, subsequent encounter for fracture with routine healing (principal); M47.12 Other spondylosis with myelopathy, cervical region; M71.38 Other bursal cyst, other site
CPT/HCPCS: 97110; 97113; 97162; 97530

== ENCOUNTER → 2018-07-20 | Outpatient (CLI) | payer MEDICARE, SELFPAY ==
[2018-06-19 09:48] VITALS: BMI 25.1
--- NOTE | 2018-07-20 12:33 | MRI_ITS ---
STUDY: MRI THORACIC SPINE WITHOUT CONTRAST REASON FOR EXAM: Female, 83 years old. Compression fracture TECHNIQUE: Standardized fat and water weighted pulse sequences were obtained in the sagittal and axial planes. COMPARISON: MRI lumbar spine 05/30/2017. FINDINGS: There is subacute to chronic compression fracture of the T12 superior endplate with anterior wedging and approximately 50% loss of vertebral body height. There is mild retropulsion of the posterior, superior cortex without significant central canal narrowing. There are multilevel foraminal cysts noted, the largest of these is in the right neural foramen at the T2-T3 level measuring 8 x 7 mm and in the left neural foramen at the T8-T9 level measuring 1 x 0.6 cm Normal kyphosis of the thoracic spine. There is no substantial scoliosis. T1-2, T2-3, T3-4, T4-5, T5-6, T6-7, T7-8, T8-9, T9-10, T10-11, T11-12: The remaining endplates are normal in appearance. Normal disc hydration, heights and morphology of the corresponding intervertebral discs. Normal central canal and intervertebral neural foramina at the corresponding levels. Normal visualized thoracic cord. Normal conus medullaris that terminates at the L1-L2 level. The soft tissue structures are unremarkable. There is a large right renal superior pole simple cyst. MRI/Spine Thoracic (Routine) IMPRESSION: 1. Subacute to chronic compression fracture of the T12 superior endplate with anterior wedging and approximately 50% loss of vertebral body height. There is mild retropulsion of the posterior, superior cortex without significant central canal narrowing. 2. Multilevel foraminal cysts noted, the largest of these is in the right neural foramen at the T2-T3 level and in the left neural foramen at the T8-T9 level. Electronically Signed: Stewart Collins, at 16:54 EDT Tel , Service support ,
--- NOTE | 2018-07-20 13:35 | CT_ITS ---
STUDY: CT LUMBAR SPINE WITHOUT CONTRAST REASON FOR EXAM: Female, 83 years old. Low back pain and leg numbness RADIATION DOSAGE (If Supplied By Facility): CTDIvol = ( 12.38 ) mGy, DLP = ( 409.32 ) mGycm TECHNIQUE: The patient was scanned in a multi detector CT scanner. High resolution transaxial imaging was performed. Images were obtained from T11 to lower sacrum. Sagittal and coronal images were reconstructed. Individualized dose optimization techniques were used for this CT. COMPARISON: Prior study of 10/30/2015 FINDINGS: Normal lumbar lordosis. There is no substantial scoliosis. There are posterior spinal fusion changes with rods and interpedicular screws at the L4-5 level. Status post L4 and L5 laminectomy changes are noted. There is a disc spacer at the L4-5 level. There is moderately severe old compression deformity of T12 new however from the prior study of 10/30/2015. L1-2: Normal endplates. Normal disc height and morphology. Normal bilateral facet joints. Normal central canal and bilateral lateral recesses. Normal bilateral intervertebral neural foramina. L2-3: Disc spacing is preserved. There are mild bilateral degenerative facet changes. There is moderately severe central canal stenosis caused by bulging annulus and ligamentum flavum hypertrophy. L3-4: There are bilateral hypertrophic facet changes. There is moderate central canal stenosis caused by bulging annulus and ligamentum flavum hypertrophy. L4 intrapeduncular screws are seen. The tip of the right L4 intrapeduncular screw is projecting through the confines of the pedicle into the right paraspinous soft tissues. L4-5: There are bilateral degenerative facet changes with vacuum phenomenon. There is mild central canal stenosis. There is foraminal narrowing on the right. There is severe old compression deformity of L5 new however from the prior study. There is an L4-5 disc spacer. L5-S1: There are bilateral degenerative facet changes. There is mild central canal stenosis. There is mild bilateral foraminal narrowing on the left and moderately severe foraminal narrowing on the right. Disc spacing is within normal limits. There is vacuum disc phenomenon. There are calcified plaques of the abdominal aorta and common iliac arteries. CT/Spine Lumbar without Contrast IMPRESSION: Old compression deformities of T12 and L5, new however from the prior study of 10/30/2015. There are status post posterior spinal fusion changes with interpeduncular screws and rods at the L4-5 level, with L4 and L5 laminectomy changes. The right L4 pedicle screw is projecting through the confines of the pedicle and projecting into the right paraspinous soft tissues. Multilevel degenerative changes as detailed above. Electronically Signed: Joel Cullen MD at 18:03 EDT , Service support ,
== END | disposition home or self-care (01) ==
LOC: MRI 12:18
PROVIDERS: Family Provider Family Medicine; PCP Family Medicine
DX: M43.16 Spondylolisthesis, lumbar region (principal)
CPT/HCPCS: 72131; 72146

== ENCOUNTER → 2018-08-30 | Outpatient (CLI) | payer MEDICARE, SELFPAY ==
[2018-06-19 09:48] VITALS: BMI 25.1
--- NOTE | 2018-08-30 15:03 | NEURO ---
NCS and/or EMG Patient Report Ordering Doctor: Cynthia Wooten DATE OF SERVICE: 08/30/18 Susan Fulton is an 83-year-old female presents for electrodiagnostic testing of the lower limbs. She reports weakness and pain in both legs and feet. Electrodiagnostic findings: Left peroneal motor nerve demonstrates normal distal latency with reduced amplitude and normal conduction velocity. Right common peroneal response is within normal limits. Normal tibial motor response bilaterally. Normal tibial and peroneal F-waves. H-Reflex is prolonged bilaterally. Sensory responses are within normal limits. Needle EMG testing reveals 1+ complex repetitive discharges in the right anterior tibialis, right peroneus longus, left peroneus longus and left gastrocnemius. 1+ polyphasic motor units are noted in the left anterior tibialis and bilateral peroneus longus. 1+ fibrillations are noted in the left anterior tibialis and the left lumbar paraspinals. Electrodiagnostic impression: This is an abnormal study. 1. Electrodiagnostic findings demonstrate acute on chronic left L5 radiculopathy, with chronic denervation in the left S1 dermatome. There is electrodiagnostic evidence for chronic right L5 radiculopathy. 2. No electrodiagnostic evidence is noted for peripheral polyneuropathy. If there are any further questions, please do not hesitate to contact me.
== END | disposition home or self-care (01) ==
LOC: PSN 12:02
PROVIDERS: Family Provider Family Medicine; PCP Family Medicine
DX: M43.16 Spondylolisthesis, lumbar region (principal)
CPT/HCPCS: 95886; 95913

== ENCOUNTER → 2018-12-18 10:40 | Outpatient (CLI) | payer MEDICARE, SELFPAY ==
[2018-06-19 09:48] VITALS: BMI 25.1
[2018-12-18 12:39] LABS: Absolute Lymphocyte Count 1.68 X10^3/uL (0.83-4.51); Absolute Neutrophil Count 3.3 X10^3/uL (2.0-7.7); Basophil# 0.05 X10^3/uL; Basophil% 0.9 % (0-1); Eosinophil# 0.17 X10^3/uL; Hematocrit 40.4 % (37-47); Hemoglobin 12.7 g/dL (12.0-15.0); Lymphocyte # 1.68 X10^3/ul (4.0); Lymphocyte % 29.5 % (19-41); Mean Corp Hgb Conc 31.4 g/dL (32-36); Mean Corpuscular Hgb 28.5 pg (27.0-32.0); Mean Corpuscular Volume 90.6 fL (81-99); Mean Platelet Vol. 9.5 fl (6.2-12.0); Monocyte# 0.46 X10^3/uL; Monocyte% 8.1 % (0-10); NRBC Flagged by Analyzer 0 % (0-5); Neutrophil # 3.33 X10^3/uL (2.7-7.7); Neutrophil % 58.3 % (47-70); Platelet Count 265 K/mm3 (150-450); RBC Distribution Width CV 12.9 % (11.6-14.6); RBC Distribution Width SD 42.2 fl (35.1-43.9); Red Blood Count 4.46 M/mm3 (4.2-5.4); White Blood Count 5.7 K/mm3 (4.4-11.0)
[2018-12-18 12:44] LABS: Vitamin D,25 Hydroxy 41.2 ng/mL (29.95-100.01)
[2018-12-18 12:50] LABS: Anion Gap 8 (5-15); BUN 21 mg/dL (7-18); BUN/Creat Ratio 41.3 RATIO (10-20); Calcium,Total 9.8 mg/dL (8.5-10.1); Chloride 106 mmol/L (98-107); Creatinine, Serum 0.51 mg/dL (0.55-1.02); EST Glomerular Filtration Rate 123 mL/min (>60); Est Glom Filt Rate - Afr Amer 149 mL/min (>60); Glucose 91 mg/dL (74-106); Sodium Level 143 mmol/L (136-145); Thyroid Stim Hormone (TSH) 0.59 uIU/mL (0.358-3.74)
== END ==
PROVIDERS: PCP Family Medicine; Visit Provider Family Medicine
DX: E03.9 Hypothyroidism, unspecified (principal); I10 Essential (primary) hypertension; E55.9 Vitamin D deficiency, unspecified
CPT/HCPCS: 36415; 80048; 82306; 84439; 84443; 85025

== ENCOUNTER → 2019-02-06 09:44 | Outpatient (CLI) | payer MEDICARE, SELFPAY ==
[2019-02-06 09:33] VITALS: BMI 25.1
--- NOTE | 2019-02-06 09:45 | RAD_ITS ---
STUDY: X-RAY - LUMBOSACRAL SPINE REASON FOR EXAM: Female, 83 years old. Lower back pain. TECHNIQUE: 70 view(s) of the lumbosacral spine were obtained. Lateral views were performed in neutral position, flexion, and extension. COMPARISON: CT scan 07/20/2018. FINDINGS: Normal lumbar lordosis. There is no substantial scoliosis. There is an old compression fracture deformity T12 vertebral body. There has been a previous spinal fusion at the L4-5 level with placement of an intervertebral cage device as well as bilateral posterior fixation rods and pedicle screws. There is also laminectomy defect at this level. On a previous CT scan, there is demonstration of continuous bone growth across the disc space and across the posterior elements, consistent with a successful mature fusion. There is limited range of motion on flexion and extension views which may be due to degenerative disease, muscle spasm, or guarding. There is approximately 4 mm anterolisthesis at the fused L4-5 level, which does not change on flexion or extension and is stable. There are no subluxations at the other levels. Normal vertebral bodies of the lumbar spine. There is multilevel spondylosis.. There is disc space narrowing at L5-S1 level. There are degenerative changes of the facet joints throughout the spine. Normal bilateral sacral ala, sacroiliac joints, and visualized sacrum. Normal visualized soft tissue structures. RAD/L/S Spine w Bend Min 6 Vw IMPRESSION: Postsurgical changes at the L4-5 level including a laminectomy and mature anterior and posterior spinal fusions. No evidence for instability. Multilevel degenerative changes. Old T12 vertebral body compression fracture. No evidence for acute fracture. Electronically Signed: Maciej Guerrero MD at 4:04 EST , Service support ,
== END ==
PROVIDERS: PCP Family Medicine; Referring Provider Orthopaedic Surgery; Visit Provider Orthopaedic Surgery
DX: M54.5 Low back pain (principal)
CPT/HCPCS: 72114

== ENCOUNTER → 2019-03-20 10:33 | Outpatient (CLI) | payer MEDICARE, SELFPAY ==
[2019-02-06 09:33] VITALS: BMI 25.1
--- NOTE | 2019-03-20 10:44 | MRI_ITS ---
STUDY: MRI LUMBAR SPINE WITH AND WITHOUT CONTRAST REASON FOR EXAM: Female, 83 years old. back pain, difficulty walking, balance issues TECHNIQUE: Standardized fat and water weighted pulse sequences were obtained in the sagittal and axial planes. Dotarem IV 13ml was administered for the contrast portion of the examination. COMPARISON: X-ray 02/06/2019, CT 07/20/2018, MRI FINDINGS: T12-L1: Normal endplates. Normal disc height, hydration and morphology. Normal bilateral facet joints. Normal central canal and bilateral lateral recesses. Normal bilateral intervertebral neural foramina. Normal lumbar lordosis. There is no substantial scoliosis. Normal conus medullaris that terminates at the L1/L2. Chronic moderate wedge compression fracture of T12 with approximately 2 mm retropulsion of the superior endplate and the spinal canal produces mild spinal stenosis. L1-2: Normal endplates. Normal disc height, hydration and morphology. Normal bilateral facet joints. Normal central canal and bilateral lateral recesses. Normal bilateral intervertebral neural foramina. L2-3: Normal endplates. Normal disc height, hydration and morphology. Normal bilateral facet joints. Normal central canal and bilateral lateral recesses. Normal bilateral intervertebral neural foramina. L3-4: Mild bilateral facet hypertrophy and ligament flavum hypertrophy. No change in the mild broad disc protrusion which produces minimal spinal stenosis and mild bilateral neural foraminal stenosis. L4-5: Status post posterior decompression, interbody fusion, and transpedicular fixation with 10 mm of anterolisthesis of L4 on L5 and a moderate wedge compression fracture of L5 which is unchanged. No change in the mild spinal stenosis and mild bilateral neural foraminal stenosis. L5-S1: No change in the mild broad disc protrusion which produces mild spinal stenosis and mild bilateral neural foraminal stenosis. Normal visualized sacral ala. Normal visualized paraspinous soft tissue structures. There is no demonstrated abnormal enhancement. MRI/Spine Lumbar W/WO Contrast IMPRESSION: Interval development of a chronic moderate wedge compression fracture of T12 with 2 mm retropulsion of the superior endplate into the spinal canal producing mild spinal stenosis. Otherwise no change in the appearance of the lower lumbar spine with fusion. Electronically Signed: Sukhi Stokes MD at 12:58 EST Tel , Service support ,
[2019-03-20 11:46] LABS: CREATININE FINGERSTICK < 0.6 mg/dL (0.55-1.02); EGFR FINGERSTICK > 60.0000 mL/min (>60)
== END ==
PROVIDERS: Family Provider Family Medicine; PCP Family Medicine; Referring Provider Orthopaedic Surgery; Visit Provider Orthopaedic Surgery
DX: M54.16 Radiculopathy, lumbar region (principal); M54.5 Low back pain; G89.29 Other chronic pain; R20.2 Paresthesia of skin
CPT/HCPCS: 72158; A9575

== ENCOUNTER → 2019-04-03 13:38 | Outpatient (CLI) | payer MEDICARE, SELFPAY ==
[2019-04-03 12:56] VITALS: BMI 25.1
[2019-04-03 15:47] LABS: PTHIN 49.5 pg/mL (18.4-80.1); Vitamin D,25 Hydroxy 32.5 ng/mL (29.95-100.01)
== END ==
PROVIDERS: PCP Family Medicine; Referring Provider Internal Medicine Endocrinology, Diabetes & Metabolism; Visit Provider Internal Medicine Endocrinology, Diabetes & Metabolism
DX: M81.0 Age-related osteoporosis without current pathological fracture (principal); E55.9 Vitamin D deficiency, unspecified
CPT/HCPCS: 36415; 82306; 83970

== ENCOUNTER 2019-05-08 07:57 | Inpatient (IN) | payer MEDICARE, SELFPAY ==
[2019-04-03 12:56] VITALS: BMI 25.1
[2019-05-08] VITALS (9 sets, daily range): BP systolic 143–178; BP diastolic 62–94; PULSE 76–89; RESP 15–16; TEMP 37.1–37.6; O2SAT 97–99; BMI 25.0; BMI 24.3
--- NOTE | 2019-05-08 08:02 | RAD_ITS ---
EXAM DESCRIPTION: PORTABLE AP CHEST CLINICAL HISTORY: 84 years Female, ABDOMEN PAIN, INTERNAL BLEEDING IN ABDOMEN ABDOMEN PAIN, INTERNAL BLEEDING IN ABDOMEN COMPARISON: Previous portable chest obtained on 06/26/2014 FINDINGS: The thorax is intact. The heart and mediastinum appear to be within normal limits. The lungs appear to be well areated without evidence of pneumonic consolidation or pleural effusion. RAD/Chest 1 View (Portable) IMPRESSION: Normal portable chest. Electronically Signed: Vijay Barbour, at 9:29 EST Tel , Service support ,
--- NOTE | 2019-05-08 08:02 | EKG12_ITS ---
Test Reason : GI BLEED Blood Pressure : / mmHG Vent. Rate : 080 BPM Atrial Rate : 080 BPM P-R Int : 174 ms QRS Dur : 082 ms QT Int : 374 ms P-R-T Axes : 050 -14 064 degrees QTc Int : 431 ms Normal sinus rhythm Minimal voltage criteria for LVH, may be normal variant Nonspecific ST and T wave abnormality Abnormal ECG Confirmed by DAX KAY ([id number]), online content editor MELISSA FELIX ([id number]) on 05/09/2019 3:03:30 PM Referred By: ALIVIA Confirmed By:DAX KAY
--- NOTE | 2019-05-08 08:11 | CT_ITS ---
STUDY: CT ABDOMEN AND PELVIS WITHOUT CONTRAST REASON FOR EXAM: Female, 84 years old. BLOOD IN STOOL AND URINE WITH AB PAIN. cholecystectomy RADIATION DOSAGE (If Supplied By Facility): CTDIvol = ( 7.04 ) mGy, DLP = ( 334.25 ) mGycm Comparison: Previous MRI of the thoracic spine obtained on 07/16/2018, previous CT scan of the abdomen and pelvis obtained on 07/31/2017 TECHNIQUE: A CT scan of the abdomen and pelvis was performed without IV contrast contrast administration. Oral contrast was also administered. Coronal and sagittal reconstruction images were reviewed. This exam was performed according to our departmental dose-optimization program, which includes automated exposure control, adjustment of the mA and/or kV according to patient size and/or use of iterative reconstruction technique. FINDINGS: The lung bases and the base of the heart are normal. The liver is normal.The spleen is normal. A stable 1.5 cm left adrenal adenoma is identified. The right adrenal gland is normal.The head, body, and tail of the pancreas are normal. A 5 cm simple cyst is seen in the superior pole of the right kidney. Left kidney is normal. The abdominal aortal is normal along its course and distribution. No paraortic lymphadenopathy is seen. No abdominal masses or lesions are seen. The CT scan of the pelvis was then reviewed. The common iliac vessels, external iliac vessels, and common femoral vessels are normal along their course and distribution extensive pericolonic inflammatory reaction is noted involving the entire descending and particularly the sigmoid portions of colon consistent with colitis. Inflammatory reaction is noted surrounding the colon. This colitis appears to have increased when compared with the previous CT scan obtained on 07/31/2017. The appendix is not seen No pericecal inflammatory reaction is seen. Bone scanning windows of the lumbar spine and pelvis were reviewed and show spinal fusion in the lower lumbar spine with diffuse osteoporosis and is normal vertebral body compression fracture of T12] CT/Abdomen/Pelvis without Cont IMPRESSION: 1. Extensive inflammatory reaction is noted involving the descending and sigmoid portions of the colon consistent with inflammatory colitis which was noted previously and has increased. 2. Old vertebral body compression fracture of T12 in this patient with osteoporosis and a previous spinal fusion of the lower lumbar spine. Electronically Signed: Vijay Barbour, at 10:48 EST Tel , Service support ,
--- NOTE | 2019-05-08 08:14 | ED.VIS.GEN ---
History of Present Illness Chief Complaint: GI Bleed Informant: Patient Onset: Days Maximum Severity: Mild Narrative: Hypertension diabetes hypothyroidism anemia diverticulitis other medical problems reports rectal bleeding began yesterday and persisted constantly over the last 12 hours. She is also some vague pain to the left lower abdomen. No nausea no vomiting no history of GI bleeding history of diverticulitis is well controlled last colonoscopy 5 years ago that showed polyps. Her other health conditions are stable she is unable to eat because of the above Past Medical History - Allergies and Home Meds Allergies/Adverse Reactions: Allergies amoxicillin Allergy (Verified 05/08/19 07:58) Unknown Anesthetics - Amide Type Allergy (Verified 05/08/19 07:58) Unknown Anesthetics - Lizzette Type- Parabens [Anesthetics - Lizzette Type] Allergy (Verified 05/08/19 07:58) Unknown Qwnjheg-Aoe-Bqi Reductase Inhibitor Allergy (Verified 05/08/19 07:58) Unknown Primary Care Physician: Bill Castaneda MD [Primary Care Provider] - Past Medical History: - Surgical History: cholecystectomy, total hip arthroplasty - Right., tonsillectomy, - - Nasal fracture, fracture of pelvis with plates, ORIF left hip, recent back surgery. Smoking Status: Never smoker - Family History Paternal Family History: Family History (Last Reviewed 04/03/19 @ 14:[address] Efrem Casas MD) Father Colon cancer Mother CHF (congestive heart failure) Brother Diabetes Sister CVA (cerebral vascular accident) Daughter Hypertension Daughter Thyroid disorder Family History: Reports: Diabetes, Heart Disease, Hypertension Maternal Family History: Family History (Last Reviewed 04/03/19 @ 14:[address] Efrem Casas MD) Father Colon cancer Mother CHF (congestive heart failure) Brother Diabetes Sister CVA (cerebral vascular accident) Daughter Hypertension Daughter Thyroid disorder Family History: Reports: Diabetes, Heart Disease, Hypertension Review of Systems ROS: - As above General: Denies: Chills, Fever, Sweats Eyes: Denies: Visual changes - bilaterally, Diplopia ENT: Denies: Rhinorrhea, Sore throat Cardiovascular: Denies: Chest pain, Palpitations Respiratory: Denies: Dyspnea, Cough, Dyspnea on exertion Gastrointestinal: Reports: Abdominal pain, Melena. Denies: Nausea, Vomiting, Diarrhea, Hematochezia Genitourinary: Denies: Dysuria, Hematuria, Frequency Musculoskeletal: Denies: Back pain, Extremity Pain Skin: Denies: Rash, Wounds Neurological: Denies: Headache, Weakness, Numbness Physical Exam Vital Signs/Narrative: Vital Signs Temp Pulse Resp BP Pulse Ox 05/08/19 08:02 82 16 166/94 H 97 05/08/19 07:58 98.7 F 76 16 166/94 H 99 General: Well nourished, Well developed, No Acute Distress Head: Normocephalic, Atraumatic Eyes: Perrl, EOMI ENT: Moist mucous membranes, No rhinorrhea Neck: Supple, Nontender Cardiovascular: Regular rate, Regular rhythm, No murmurs Respiratory: No distress, CTA bilaterally, Chest nontender Abdomen: Soft, Nondistended, Normal bowel sounds, - - Is a very vague pain to the left side abdomen no rebound or guarding, there is blood covering her perineum and vaginal area, pelvic exam done with nurse speculum exam shows after clearing away the blood from the perineum there is no significant signs of bleeding in the vagina but the speculum was retrieved with minimal stranding of blood possibly related to the rectal bleeding or an occult area of vaginal bleeding, we could not visualize her cervix Rectal: - - Rectal exam shows reddish to dark blood no masses Back: Nontender, Normal Inspection Extremities: Nontender, No edema Skin: Normal color, No rash Neurological: Alert, Oriented x3, Cranial nerves II-XII grossly intact, Normal Strength, Normal Sensation Psychological: Normal affect, Normal Mood Diagnostic/Tx/Re-eval - Medical Decision Making Differential certainly is extensive given her age and her past history screening labs IV fluids type and screen CT abdomen pelvis she is hemodynamically stable here Given all the above she appears to have rectal bleeding there was a scant trace of blood streaking on the speculum during the pelvic exam cervix not visualized, her screening labs are generally unremarkable, her abdominal CT shows quite a bit of inflammatory changes involving the descending and sigmoid colon, no abscess, she is received IV fluids at this time given all the above she feels too tired and weak to go home she is unable to eat and drink she was started on IV antibiotics fluids continued we have ordered stool samples and we have asked the hospital see her for further management and admission Admit stable Final impression, rectal bleeding, inflammatory colitis, ED Disposition - Plan for ED Patient: Diagnosis: Inflammatory colitis rectal bleeding Referrals: Bill Castaneda MD [Primary Care Provider] -
[2019-05-08 08:39] LABS: Absolute Lymphocyte Count 1.46 X10^3/uL (0.83-4.51); Basophil# 0.04 X10^3/uL; Basophil% 0.3 % (0-1); Eosinophil# 0.04 X10^3/uL; Eosinophils% 0.3 % (0-5); Hematocrit 45.1 % (37-47); Hemoglobin 14.6 g/dL (12.0-15.0); Lymphocyte # 1.46 X10^3/ul (4.0); Lymphocyte % 10.7 % (19-41); Mean Corp Hgb Conc 32.4 g/dL (32-36); Mean Corpuscular Hgb 28.5 pg (27.0-32.0); Mean Corpuscular Volume 88.1 fL (81-99); Mean Platelet Vol. 9.1 fl (6.2-12.0); Monocyte# 1.03 X10^3/uL; Monocyte% 7.5 % (0-10); NRBC Flagged by Analyzer 0 % (0-5); Neutrophil # 11.01 X10^3/uL (2.7-7.7); Neutrophil % 80.7 % (47-70); Platelet Count 325 K/mm3 (150-450); RBC Distribution Width CV 13.1 % (11.6-14.6); RBC Distribution Width SD 41.5 fl (35.1-43.9); Red Blood Count 5.12 M/mm3 (4.2-5.4); White Blood Count 13.7 K/mm3 (4.4-11.0)
[2019-05-08 09:00] LABS: Anion Gap 4 (5-15); BUN 22 mg/dL (7-18); BUN/Creat Ratio 35.9 RATIO (10-20); Calcium,Total 9.7 mg/dL (8.5-10.1); Chloride 107 mmol/L (98-107); Creatinine, Serum 0.61 mg/dL (0.55-1.02); EST Glomerular Filtration Rate 99 mL/min (>60); Est Glom Filt Rate - Afr Amer 120 mL/min (>60); Estimated Creatinine Clearance 37.45 ml/min; Glucose 127 mg/dL (74-106); Potassium 3.8 mmol/L (3.5-5.1); Sodium Level 141 mmol/L (136-145)
[2019-05-08 09:13] LABS: Prothrombin Time (Protime)PT. 13.4 SECONDS (11.7-14.9)
[2019-05-08 09:39] LABS: Color, Urine Yellow (Yellow); Glucose, Dipstick Normal (Normal); Ketone-Dipstick 5 mg/dl (Negative); Leukocyte Esterase-Dipstick 25 /ul (Negative); Nitrite-Dipstick Negative (Negative); Occult Blood-Urine 150 /ul (Negative); Protein-Dipstick 30 mg/dl (Negative); Specific Gravity, Urine 1.015 (1.002-1.030); Urine Bilirubin Dipstick Negative (Negative); Urine Clarity Clear (Clear); Urine Urobilinogen Normal (Normal); Urine pH 6.5 (5.0 - 8.0)
[2019-05-08 09:54] LABS: White Blood Cells 0-5 SEEN /hpf (0-5)
[2019-05-08 09:55] LABS: Bacteria 1+ /hpf (None Seen); Mucous, Urine 1+ /hpf (<or=2+); Red Blood Cells-Urine 5-10 SEEN /hpf (0-5); Squamous Epithelial Cells - UA 0-5 SEEN /hpf (5-10); Transitional Epithelial - Ur 0-5 SEEN /hpf (0-5)
--- NOTE | 2019-05-08 11:15 | HP.PCM_ITS ---
Problem List (1) Colitis Status: Acute (2) Back pain Status: Chronic Qualifiers: Back pain location: low back pain Chronicity: chronic Back pain laterality: bilateral Sciatica presence: without sciatica Qualified Code(s): M54.5 - Low back pain; G89.29 - Other chronic pain (3) Controlled diabetes mellitus with peripheral circulatory disorder Status: Chronic (4) Old anterior wall myocardial infarction Status: Chronic (5) Essential (primary) hypertension Status: Chronic (6) HLD (hyperlipidemia) Status: Chronic Qualifiers: Hyperlipidemia type: pure hypercholesterolemia Qualified Code(s): E78.00 - Pure hypercholesterolemia, unspecified; E78.0 - Pure hypercholesterolemia (7) Palpitations Status: Chronic (8) Takotsubo cardiomyopathy Status: Chronic History of Present Illness Date of Admission: 05/08/19 Chief Complaint: Abdominal pain for 2 days The patient is a 84 year old F with multiple comorbidities as mentioned above came to ER with abdominal pain predominantly in lower quadrants, with rectal bleed, diarrhea for about 2 days. She described her abdominal pain as crampy, colicky nature 8-10 in intensity, comes in waves and then goes away. There is no radiation to the back. No fever or chills. Patient also has diarrhea about 4-5 times, liquid in consistency with mucus and blood. She had colonoscopy about 5 years ago and few polyps were removed which were noncancerous as per the history of patient. Has nausea but denies vomiting. In ED, discharged with IV fluid, Cipro and Flagyl. [] Past Medical History Past Medical History (Chronic Problems): Chronic Problems (Last Reviewed 04/03/19 @ 14:[address] 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) I25.2 Essential (primary) hypertension (Chronic) I10 HLD (hyperlipidemia) (Chronic) E78.5 Palpitations (Chronic) R00.2 Takotsubo cardiomyopathy (Chronic) I51.81 Asthma J45.909 Osteoarthritis M19.90 Other chest pain (Resolved) R07.89 Allergies amoxicillin Allergy (Verified 05/08/19 07:58) Unknown Anesthetics - Amide Type Allergy (Verified 05/08/19 07:58) Unknown Anesthetics - Lizzette Type- Parabens [Anesthetics - Lizzette Type] Allergy (Verified 05/08/19 07:58) Unknown Umkjnru-Tfy-Lbq Reductase Inhibitor Allergy (Verified 05/08/19 07:58) Unknown Home Medications: Ambulatory Orders Medication Instructions Recorded Cholecalciferol (Vitamin D3) 2,000 unit PO DAILY 10/17/13 [Vitamin D3] ezetimibe 10 mg tablet 10 mg PO DAILY 12/15/17 acetaminophen 500 mg tablet 500 mg PO BID tab 06/19/18 Amlodipine [Norvasc] 2.5 mg PO QDAY 05/08/19 Carvedilol 25 mg PO BID 05/08/19 Levothyroxine [Synthroid] 112 mcg PO DAILY@0600 05/08/19 Lisinopril 40 mg PO DAILY 05/08/19 Teriparatide [Forteo] 20 mcg SUBCUT DAILY 05/08/19 Tramadol HCl [Ultram] 50 mg PO BID 05/08/19 Surgical History: Surgical History (Last Reviewed 04/03/19 @ 14:[address] Efrem Casas MD) History of back surgery Onset Date: ~2016 Z98.890 History of cholecystectomy Onset Date: ~2005 Z98.890, Z90.49 History of dilation and curettage Onset Date: ~1994 Z98.890 History of fractured pelvis Onset Date: ~2013 Z87.81 History of left heart catheterization (LHC) Onset Date: ~03/2010 Z98.890 04/2000, 03/2010. History of right hip replacement Onset Date: ~2016 Z96.641 History of tonsillectomy Z98.890, Z90.89 Surgical History: cholecystectomy, total hip arthroplasty - Right., tonsillectomy, - - Nasal fracture, fracture of pelvis with plates, ORIF left hip, recent back surgery. Psychiatric History: No pertinent psych hx [employer] History: uterine fibroids Smoking Status: Never smoker - *Family History Paternal Family History: Family History (Last Reviewed 04/03/19 @ 14:[address] Efrem Casas MD) Father Colon cancer Mother CHF (congestive heart failure) Brother Diabetes Sister CVA (cerebral vascular accident) Daughter Hypertension Daughter Thyroid disorder History Items: Diabetes, Heart Disease, Hypertension Maternal Family History: Family History (Last Reviewed 04/03/19 @ 14:[address] Efrem Casas MD) Father Colon cancer Mother CHF (congestive heart failure) Brother Diabetes Sister CVA (cerebral vascular accident) Daughter Hypertension Daughter Thyroid disorder History Items: Diabetes, Heart Disease, Hypertension Review of Systems Constitutional: Reports: Malaise, Weakness. Denies: Chills, Fever HEENT: Denies: Head Aches, Sinus Congestion, Sinus Drainage Cardiovascular: Denies: Chest Pain, Palpitations Respiratory: Denies: Cough, Shortness of breath at rest, Sputum production Gastrointestinal: Reports: Abdominal Pain, Diarrhea, Hematochezia, Nausea. Denies: Hematemesis, Melena, Vomiting Genitourinary: Denies: Dysuria, Frequency, Incontinence, Nocturia, Retention Musculoskeletal: Reports: Joint Pain - Knee pain and back pain. Denies: Joint Tenderness Skin: Denies: Rash, Wounds Neurological: Denies: Numbness, Tingling, Focal weakness Psychiatric: Denies: Anxiety, Depression, Homicidal Ideations, Suicidal Ideations Hematologic/ Lymphatic: Denies: Easy Bruising, Easy Bleeding VTE Information - Inpt Only VTE Present on Admission: No VTE Mechan Device Prophylaxis: SCD's Reason prophylaxis not ordered:: Medical Contraindication - Rectal bleed Patient Problems: Active and Suspected Problems (Last Reviewed 04/03/19 @ 14:[address] Efrem Casas MD) Colitis (Acute) - Physical Exam Vitals/I&O's: Vital Signs Temp Pulse Resp BP Pulse Ox 98.7 F 80 15 161/85 H 99 05/08/19 07:58 05/08/19 10:51 05/08/19 10:51 05/08/19 10:51 05/08/19 10:51 Oxygen Delivery Method Room Air Weight: 145 lb 8.081 oz Body Mass Index (BMI) 25.0 Finger Stick Blood Glucose 227 General: Alert, Oriented x3, Cooperative HEENT: Atraumatic, PERRLA, EOMI, Normocephalic Oral: No Gingival or Mucosal Lesions/ Ulcerations, Dry Mucosa Neck: Supple, No JVD, Negative Carotid Bruits Lungs: Clear to auscultation, No rhonchi, No wheeze, No rales, Diminished Cardiovascular: Regular rate, Regular Rhythm, Normal S1, Normal S2, No murmurs Abdomen: Bowel Sounds Present, Soft, Non-Distended, Hypoactive Bowel Sounds, Tender - Tenderness present in left lower quadrant. Extremities: No edema, Capillary Refill Less than 3 Seconds Skin: No rashes, No breakdown Musculoskeletal: No Tenderness to Palpation of Joints or Extremities, Arthritic Changes Neurological: Cranial nerves II-XII grossly intact, Deep Tendon Reflexes 2+/4 and Symmetrical, Neuro grossly intact, Motor Exam 5/5 strength throughout Psych/Mental Status: Normal Affect, Appropriate Laboratory Results 05/08/19 08:20: WBC 13.7 H, RBC 5.12, Hgb 14.6, Hct 45.1, MCV 88.1, MCH 28.5, MCHC 32.4, RDW Std Deviation 41.5, RDW Coeff of [place] 13.1, Plt Count 325, MPV 9.1, Immature Gran % (Auto) 0.500, Neut % (Auto) 80.7 H, Lymph % (Auto) 10.7 L, [place] % (Auto) 7.5, Eos % (Auto) 0.3, Baso % (Auto) 0.3, Absolute Neuts (auto) 11.0 H, Absolute Lymphs (auto) 1.46, Nucleated RBC % 0 05/08/19 08:20: PT Cancelled, INR Cancelled 05/08/19 08:20: Sodium 141, Potassium 3.8, Chloride 107, Carbon Dioxide 30.0, Anion Gap 4 L, BUN 22 H, Creatinine 0.61, Estim Creat Clear Calc 37.45, Est GFR (MDRD) Af Amer 120, Est GFR (MDRD) Non-Af 99, BUN/Creatinine Ratio 35.9 H, Glucose 127 H, Calcium 9.7, Troponin I < 0.015 05/08/19 08:20: Blood Type O NEGATIVE, Antibody Screen NEGATIVE 05/08/19 08:50: PT 13.4, INR 1.0 05/08/19 09:30: Urine Color Yellow, Urine Clarity Clear, Urine pH 6.5, Ur Specific [place] 1.015, Urine Protein 30 H, Urine Glucose (UA) Normal, Urine Ketones 5 H, Urine Occult Blood 150 H, Urine Nitrite Negative, Urine Bilirubin Negative, Urine Urobilinogen Normal, Ur Leukocyte Esterase 25 H, Urine RBC 5-10 SEEN, Urine WBC 0-5 SEEN, Ur Squamous Epith Cells 0-5 SEEN, Ur Transition Epith Cell 0-5 SEEN, Urine Bacteria 1+, Urine Mucus 1+ Current Medications Metronidazole (Flagyl) 500 mg in 100 mls @ 100 mls/hr IV X1 ONE Stop: 05/08/19 12:02 Ciprofloxacin (Cipro) 400 mg in 200 mls @ 200 mls/hr IV X1 ONE Stop: 05/08/19 12:02 Assessment/Plan All Active Problems (Last Reviewed 04/03/19 @ 14:[address] Efrem Casas MD) Colitis (Acute) Other chest pain (Resolved) This 84-year-old female with no history of ischemic or inflammatory bowel disease is admitted with abdominal pain, hematochezia, diarrhea for about 2 days. 1. Descending and sigmoid colitis probably infectious or inflammatory colitis: Patient is being admitted in PCU as MedSurg status. Discussed with Dr. Miller. We will keep the patient n.p.o. except ice and juice. IV fluid normal saline +20 M EQ KCl at 100mL/h. On IV Cipro and Flagyl. CT abdomen reviewed shows extensive inflammatory reaction in the descending and sigmoid portion of colon consistent with inflammatory colitis. No peritoneal signs. 2. Diabetes mellitus type 2: Accu-Chek every 6 hourly and cover with Hem-o-lefty sliding scale. 3. History of Takotsubo cardiomyopathy: Patient follows with Dr. gregory. Echo done in March 2016 reported as normal LV size and systolic function. EF 65% with mild eccentric MR. Continue home cardiac medications. 4. Other comorbidities include hypertension hypothyroidism, dyslipidemia and iron deficiency anemia: Blood pressure is high, 166/94, 176/88. On IV hydralazine. Hold oral medications. Hemoglobin is 14.6/45.1 probably hemoconcentration. Patient baseline hemoglobin runs between 12.7-14. 5. Chronic back pain with spinal stenosis and knee surgery status post lumbar spine surgery, in 2016 and knee arthritis. Patient follows Dr. Santos. Due to prophylaxis: Bilateral SCDs. Pharmacological prophylaxis contraindicated. Clinical Impression(s) from Imaging Studies Chest X-Ray 05/08/19 08:02 IMPRESSION: Normal portable chest. Abdomen/Pelvis CT 05/08/19 08:11 IMPRESSION: 1. Extensive inflammatory reaction is noted involving the descending and sigmoid portions of the colon consistent with inflammatory colitis which was noted previously and has increased. 2. Old vertebral body compression fracture of T12 in this patient with osteoporosis and a previous spinal fusion of the lower lumbar spine. Laboratory Results 05/08/19 08:20: WBC 13.7 H, RBC 5.12, Hgb 14.6, Hct 45.1, MCV 88.1, MCH 28.5, MCHC 32.4, RDW Std Deviation 41.5, RDW Coeff of [place] 13.1, Plt Count 325, MPV 9.1, Immature Gran % (Auto) 0.500, Neut % (Auto) 80.7 H, Lymph % (Auto) 10.7 L, [place] % (Auto) 7.5, Eos % (Auto) 0.3, Baso % (Auto) 0.3, Absolute Neuts (auto) 11.0 H, Absolute Lymphs (auto) 1.46, Nucleated RBC % 0 05/08/19 08:20: PT Cancelled, INR Cancelled 05/08/19 08:20: Sodium 141, Potassium 3.8, Chloride 107, Carbon Dioxide 30.0, Anion Gap 4 L, BUN 22 H, Creatinine 0.61, Estim Creat Clear Calc 37.45, Est GFR (MDRD) Af Amer 120, Est GFR (MDRD) Non-Af 99, BUN/Creatinine Ratio 35.9 H, Glucose 127 H, Calcium 9.7, Troponin I < 0.015 05/08/19 08:20: Blood Type O NEGATIVE, Antibody Screen NEGATIVE 05/08/19 08:50: PT 13.4, INR 1.0 05/08/19 09:30: Urine Color Yellow, Urine Clarity Clear, Urine pH 6.5, Ur Specific [place] 1.015, Urine Protein 30 H, Urine Glucose (UA) Normal, Urine Ketones 5 H, Urine Occult Blood 150 H, Urine Nitrite Negative, Urine Bilirubin Negative, Urine Urobilinogen Normal, Ur Leukocyte Esterase 25 H, Urine RBC 5-10 SEEN, Urine WBC 0-5 SEEN, Ur Squamous Epith Cells 0-5 SEEN, Ur Transition Epith Cell 0-5 SEEN, Urine Bacteria 1+, Urine Mucus 1+ Code Visit Inpatient E&M: [id number] Init Hosp L3
--- NOTE | 2019-05-08 11:22 | NURSING ---
MED SURG ANJALI RECTAL BLEEDING, INFLAMMATORY COLITIS
[2019-05-08] MEDS: Ciprofloxacin 400 MG/200 ML BAG 200 MG IV ×2 (11:40→20:39)
--- NOTE | 2019-05-08 13:17 | PCM.CONS.GEN ---
Problem List (1) Colitis Status: Acute Reason for Consult Date of Consultation: 05/08/19 Reason for Consultation: Colitis and bloody stool History of Present Illness: The patient is a 84 year old F who presents to the emergency room with abdominal pain and blood per rectum. Patient notes that yesterday she started having bright red blood per rectum and left lower quadrant pain. She says she has a history of diverticulitis. She is never had any ischemia or ischemic colitis. She does not have A. fib. She reports that the abdominal pain is only in her left lower quadrant with no other pain in the rest of the abdomen. She does have nausea but no vomiting. She denies fevers or chills. Past Medical History Past Medical History (Chronic Problems): Chronic Problems (Last Reviewed 04/03/19 @ 14:[address] 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) I25.2 Essential (primary) hypertension (Chronic) I10 HLD (hyperlipidemia) (Chronic) E78.5 Palpitations (Chronic) R00.2 Takotsubo cardiomyopathy (Chronic) I51.81 Asthma J45.909 Osteoarthritis M19.90 Other chest pain (Resolved) R07.89 Allergies amoxicillin Allergy (Verified 05/08/19 07:58) Unknown Anesthetics - Amide Type Allergy (Verified 05/08/19 07:58) Unknown Anesthetics - Lizzette Type- Parabens [Anesthetics - Lizzette Type] Allergy (Verified 05/08/19 07:58) Unknown Cltxicb-Seq-Vpw Reductase Inhibitor Allergy (Verified 05/08/19 07:58) Unknown Home Medications: Ambulatory Orders Medication Instructions Recorded Cholecalciferol (Vitamin D3) 2,000 unit PO DAILY 10/17/13 [Vitamin D3] ezetimibe 10 mg tablet 10 mg PO DAILY 12/15/17 acetaminophen 500 mg tablet 500 mg PO BID tab 06/19/18 Amlodipine [Norvasc] 2.5 mg PO QDAY 05/08/19 Carvedilol 25 mg PO BID 05/08/19 Levothyroxine [Synthroid] 112 mcg PO DAILY@0600 05/08/19 Lisinopril 40 mg PO DAILY 05/08/19 Teriparatide [Forteo] 20 mcg SUBCUT DAILY 05/08/19 Tramadol HCl [Ultram] 50 mg PO BID 05/08/19 Surgical History: Surgical History (Last Reviewed 04/03/19 @ 14:[address] Efrem Casas MD) History of back surgery Onset Date: ~2016 Z98.890 History of cholecystectomy Onset Date: ~2005 Z98.890, Z90.49 History of dilation and curettage Onset Date: ~1994 Z98.890 History of fractured pelvis Onset Date: ~2013 Z87.81 History of left heart catheterization (LHC) Onset Date: ~03/2010 Z98.890 04/2000, 03/2010. History of right hip replacement Onset Date: ~2016 Z96.641 History of tonsillectomy Z98.890, Z90.89 Surgical History: cholecystectomy, total hip arthroplasty - Right., tonsillectomy, - - Nasal fracture, fracture of pelvis with plates, ORIF left hip, recent back surgery. Psychiatric History: No pertinent psych hx EVENT [employer]N History: uterine fibroids Smoking Status: Never smoker - *Family History Paternal Family History: Family History (Last Reviewed 04/03/19 @ 14:[address] Efrem Casas MD) Father Colon cancer Mother CHF (congestive heart failure) Brother Diabetes Sister CVA (cerebral vascular accident) Daughter Hypertension Daughter Thyroid disorder History Items: Diabetes, Heart Disease, Hypertension Maternal Family History: Family History (Last Reviewed 04/03/19 @ 14:[address] Efrem Casas MD) Father Colon cancer Mother CHF (congestive heart failure) Brother Diabetes Sister CVA (cerebral vascular accident) Daughter Hypertension Daughter Thyroid disorder History Items: Diabetes, Heart Disease, Hypertension Review of Systems Constitutional: Denies: Anorexia, Fever HEENT: Denies: Difficulty Swallowing Cardiovascular: Denies: Chest Pain Respiratory: Denies: Cough, Shortness of Breath Gastrointestinal: Reports: Abdominal Pain, Hematochezia, Nausea. Denies: Constipation, Diarrhea, Hematemesis, Melena, Vomiting Genitourinary: Denies: Dysuria Musculoskeletal: Denies: Joint Tenderness Skin: Denies: Jaundice Neurological: Denies: Balance problems Psychiatric: Denies: Anxiety Hematologic/ Lymphatic: Denies: Anemia Patient Problems: Active and Suspected Problems (Last Reviewed 04/03/19 @ 14:[address] Efrem Casas MD) Colitis (Acute) - Physical Exam Vitals/I&O's: Vital Signs Temp Pulse Resp BP Pulse Ox 99.1 F 83 16 176/88 H 99 05/08/19 12:15 05/08/19 12:15 05/08/19 12:15 05/08/19 12:15 05/08/19 12:15 Oxygen Delivery Method Room Air Weight: 141 lb 8 oz Body Mass Index (BMI) 24.3 Finger Stick Blood Glucose 227 Intake and Output for Last 24 Hours 05/06/19 05/07/19 05/08/19 23:59 23:59 23:59 Intake Total 200 / 200 Balance 200 / 200 General: Alert, Oriented x3 Neck: No JVD Lungs: Normal air movement Cardiovascular: Regular rate, Regular Rhythm Abdomen: Soft, Non-Distended, Tender - Tender in the left lower quadrant no guarding or rebound Extremities: No cyanosis Skin: No breakdown Musculoskeletal: No Muscle Wasting Neurological: Cranial nerves II-XII grossly intact Psych/Mental Status: Normal Affect Laboratory Results 05/08/19 08:20: WBC 13.7 H, RBC 5.12, Hgb 14.6, Hct 45.1, MCV 88.1, MCH 28.5, MCHC 32.4, RDW Std Deviation 41.5, RDW Coeff of Jay Jay 13.1, Plt Count 325, MPV 9.1, Immature Gran % (Auto) 0.500, Neut % (Auto) 80.7 H, Lymph % (Auto) 10.7 L, [place] % (Auto) 7.5, Eos % (Auto) 0.3, Baso % (Auto) 0.3, Absolute Neuts (auto) 11.0 H, Absolute Lymphs (auto) 1.46, Nucleated RBC % 0 05/08/19 08:20: PT Cancelled, INR Cancelled 05/08/19 08:20: Sodium 141, Potassium 3.8, Chloride 107, Carbon Dioxide 30.0, Anion Gap 4 L, BUN 22 H, Creatinine 0.61, Estim Creat Clear Calc 37.45, Est GFR (MDRD) Af Amer 120, Est GFR (MDRD) Non-Af 99, BUN/Creatinine Ratio 35.9 H, Glucose 127 H, Calcium 9.7, Troponin I < 0.015 05/08/19 08:20: Blood Type O NEGATIVE, Antibody Screen NEGATIVE 05/08/19 08:50: PT 13.4, INR 1.0 05/08/19 09:30: Urine Color Yellow, Urine Clarity Clear, Urine pH 6.5, Ur Specific [place] 1.015, Urine Protein 30 H, Urine Glucose (UA) Normal, Urine Ketones 5 H, Urine Occult Blood 150 H, Urine Nitrite Negative, Urine Bilirubin Negative, Urine Urobilinogen Normal, Ur Leukocyte Esterase 25 H, Urine RBC 5-10 SEEN, Urine WBC 0-5 SEEN, Ur Squamous Epith Cells 0-5 SEEN, Ur Transition Epith Cell 0-5 SEEN, Urine Bacteria 1+, Urine Mucus 1+ Clinical Impression(s) from Imaging Studies Chest X-Ray 05/08/19 08:02 IMPRESSION: Normal portable chest. Electronically Signed: Vijay Barbour, at 9:29 EST Tel , Service support , Abdomen/Pelvis CT 05/08/19 08:11 IMPRESSION: 1. Extensive inflammatory reaction is noted involving the descending and sigmoid portions of the colon consistent with inflammatory colitis which was noted previously and has increased. 2. Old vertebral body compression fracture of T12 in this patient with osteoporosis and a previous spinal fusion of the lower lumbar spine. Electronically Signed: Vijay Barbour at 10:48 EST Tel , Service support , Current Medications Sodium Chloride () 10 - 40 ml IV UD PRN PRN Reason: SALINE FLUSH Assessment/Plan All Active Problems (Last Reviewed 04/03/19 @ 14:[address] Efrem Casas MD) Colitis (Acute) Other chest pain (Resolved) 84-year-old female with colitis and blood per rectum 1. The patient does have left lower quadrant pain with no guarding or rebound. She has no peritoneal signs. Her white count is slightly elevated. I have recommended that she has Cipro and Flagyl and stays n.p.o. She may have sips and ice chips. If anything worsens I will perform a colonoscopy sooner but otherwise I would wait for colonoscopy for 6-8 weeks after resolution. Luis Farfan MD Pager: [facility] [address] [place] [address], [address] [place] [address] Office:
[2019-05-08] MEDS: metroNIDAZOLE 500 MG/100 ML BAG 100 MG IV ×2 (14:36→21:39)
[2019-05-08] MEDS: hydrALAZINE 20 MG/ML Vial 5 MG IV (16:47)
[2019-05-08 16:55] LABS: Bedside Glucose 88 mg/dL (70-110)
[2019-05-08] MEDS: Morphine 2 MG/ML Syringe IV (21:37)
[2019-05-08 23:56] LABS: Bedside Glucose 102 mg/dL (70-110)
[2019-05-09 02:00] VITALS: BP 150/72; PULSE 75; RESP 16; TEMP 37; O2SAT 97
[2019-05-09] MEDS: metroNIDAZOLE 500 MG/100 ML BAG 100 MG IV ×3 (05:21→22:22)
[2019-05-09 06:26] LABS: Bedside Glucose 97 mg/dL (70-110)
[2019-05-09 06:53] LABS: Absolute Lymphocyte Count 1.47 X10^3/uL (0.83-4.51); Absolute Neutrophil Count 10.4 X10^3/uL (2.0-7.7); Basophil# 0.04 X10^3/uL; Basophil% 0.3 % (0-1); Eosinophil# 0.07 X10^3/uL; Eosinophils% 0.5 % (0-5); Hemoglobin 12.3 g/dL (12.0-15.0); Lymphocyte # 1.47 X10^3/ul (4.0); Lymphocyte % 11.4 % (19-41); Mean Corp Hgb Conc 31.5 g/dL (32-36); Mean Corpuscular Volume 88.8 fL (81-99); Mean Platelet Vol. 9.2 fl (6.2-12.0); Monocyte# 0.81 X10^3/uL; Monocyte% 6.3 % (0-10); NRBC Flagged by Analyzer 0 % (0-5); Neutrophil # 10.37 X10^3/uL (2.7-7.7); Neutrophil % 80.9 % (47-70); Platelet Count 264 K/mm3 (150-450); RBC Distribution Width CV 13.3 % (11.6-14.6); RBC Distribution Width SD 43.1 fl (35.1-43.9); Red Blood Count 4.39 M/mm3 (4.2-5.4); White Blood Count 12.8 K/mm3 (4.4-11.0)
[2019-05-09 07:12] LABS: AST(SGOT) 42 U/L (15-37); Alanine Aminotransfer ALT/SGPT 40 U/L (13-56); Albumin, Serum 3.1 g/dL (3.2-5.0); Alkaline Phosphatase 75 U/L (45-117); Anion Gap 4 (5-15); BUN 14 mg/dL (7-18); BUN/Creat Ratio 34.2 RATIO (10-20); Bilirubin, Direct 0.22 mg/dL (0.00-0.30); Calcium,Total 8.5 mg/dL (8.5-10.1); Chloride 110 mmol/L (98-107); Creatinine, Serum 0.41 mg/dL (0.55-1.02); EST Glomerular Filtration Rate 158 mL/min (>60); Est Glom Filt Rate - Afr Amer 192 mL/min (>60); Estimated Creatinine Clearance 37.45 ml/min; Glucose 92 mg/dL (74-106); Potassium 3.4 mmol/L (3.5-5.1); Protein, Total 6.1 g/dL (6.4-8.2); Sodium Level 140 mmol/L (136-145)
[2019-05-09 07:35] VITALS: O2SAT 97
[2019-05-09 08:00] VITALS: BP 164/80; PULSE 72; RESP 18; TEMP 36.8; O2SAT 96
--- NOTE | 2019-05-09 08:09 | PN.SURG_ITS ---
Patient Problems: Active and Suspected Problems (Last Reviewed 04/03/19 @ 14:[address] Efrem Casas MD) Colitis (Acute) Subjective: The patient reports she is feeling much better this morning but still having left lower quadrant pain. She had a smaller bloody bowel movement but much less blood than yesterday. She is having no nausea or vomiting. - Physical Exam Vitals/I&O's: Vital Signs Temp Pulse Resp BP Pulse Ox 98.6 F 75 16 150/72 H 97 05/09/19 02:00 05/09/19 02:00 05/09/19 02:00 05/09/19 02:00 05/09/19 07:35 Oxygen Delivery Method Room Air Weight: 143 lb 11.862 oz Body Mass Index (BMI) 24.3 Finger Stick Blood Glucose 227 Intake and Output for Last 24 Hours 05/07/19 05/08/19 05/09/19 23:59 23:59 23:59 Intake Total 1100 / 1100 1100 / 1100 Balance 1100 / 1100 1100 / 1100 General: Alert, Oriented x3 Neck: No JVD Lungs: Normal air movement Abdomen: Soft, Non-Distended, Tender - Tender in the left lower quadrant to deep palpation Microbiology Past 72 Hours 05/08/19 11:50 Stool Enteric Bacteriology - Final 05/08/19 11:50 Stool C. difficile DNA Amplification - Final Laboratory Results 05/08/19 08:20: WBC 13.7 H, RBC 5.12, Hgb 14.6, Hct 45.1, MCV 88.1, MCH 28.5, MCHC 32.4, RDW Std Deviation 41.5, RDW Coeff of Jay Jay 13.1, Plt Count 325, MPV 9.1, Immature Gran % (Auto) 0.500, Neut % (Auto) 80.7 H, Lymph % (Auto) 10.7 L, [place] % (Auto) 7.5, Eos % (Auto) 0.3, Baso % (Auto) 0.3, Absolute Neuts (auto) 11.0 H, Absolute Lymphs (auto) 1.46, Nucleated RBC % 0 05/08/19 08:20: PT Cancelled, INR Cancelled 05/08/19 08:20: Sodium 141, Potassium 3.8, Chloride 107, Carbon Dioxide 30.0, Anion Gap 4 L, BUN 22 H, Creatinine 0.61, Estim Creat Clear Calc 37.45, Est GFR (MDRD) Af Amer 120, Est GFR (MDRD) Non-Af 99, BUN/Creatinine Ratio 35.9 H, Glucose 127 H, Calcium 9.7, Troponin I < 0.015 05/08/19 08:20: Blood Type O NEGATIVE, Antibody Screen NEGATIVE 05/08/19 08:50: PT 13.4, INR 1.0 05/08/19 09:30: Urine Color Yellow, Urine Clarity Clear, Urine pH 6.5, Ur Specific [place] 1.015, Urine Protein 30 H, Urine Glucose (UA) Normal, Urine Ketones 5 H, Urine Occult Blood 150 H, Urine Nitrite Negative, Urine Bilirubin Negative, Urine Urobilinogen Normal, Ur Leukocyte Esterase 25 H, Urine RBC 5-10 SEEN, Urine WBC 0-5 SEEN, Ur Squamous Epith Cells 0-5 SEEN, Ur Transition Epith Cell 0-5 SEEN, Urine Bacteria 1+, Urine Mucus 1+ 05/08/19 16:42: POC Glucose 88 05/08/19 23:49: POC Glucose 102 05/09/19 06:05: WBC 12.8 H, RBC 4.39, Hgb 12.3, Hct 39.0, MCV 88.8, MCH 28.0, MCHC 31.5 L, RDW Std Deviation 43.1, RDW Coeff of Jay Jay 13.3, Plt Count 264, MPV 9.2, Immature Gran % (Auto) 0.600, Neut % (Auto) 80.9 H, Lymph % (Auto) 11.4 L, [place] % (Auto) 6.3, Eos % (Auto) 0.5, Baso % (Auto) 0.3, Absolute Neuts (auto) 10.4 H, Absolute Lymphs (auto) 1.47, Nucleated RBC % 0 05/09/19 06:05: Sodium 140, Potassium 3.4 L, Chloride 110 H, Carbon Dioxide 26.0, Anion Gap 4 L, BUN 14, Creatinine 0.41 L, Estim Creat Clear Calc 37.45, Est GFR (MDRD) Af Amer 192, Est GFR (MDRD) Non-Af 158, BUN/Creatinine Ratio 34.2 H, Glucose 92, Calcium 8.5, Total Bilirubin 1.30 H, Direct Bilirubin 0.22, AST 42 H, ALT 40, Alkaline Phosphatase 75, Total Protein 6.1 L, Albumin 3.1 L, Globulin 3.0 05/09/19 06:23: POC Glucose 97 Current Medications Acetaminophen (Tylenol) 650 mg RECTAL Q4H PRN PRN PRN Reason: Pain Score 1-10/Temp > 100.7 F Albuterol Sulfate (Ventolin Aerosols) 2.5 mg INHALATION Q2H PRN PRN PRN Reason: Shortness of Breath/Wheezing Enalaprilat (Vasotec) 1.25 mg IV Q6H PRN PRN PRN Reason: SBP>180 OR DBP>100 Glucagon () 1 mg IM .X1 PRN PRN Reason: Hypoglycemia Hydralazine HCl (Apresoline Iv) 5 mg IV Q4H PRN PRN PRN Reason: SBP>160 Last Admin: 05/08/19 16:47 Dose: 5 mg Documented by: Potassium Chloride/Sodium Chloride () 1,000 mls @ 75 mls/hr IV .[id number] COUNT INCLUDES THE [facility] Last Admin: 05/09/19 06:31 Dose: 75 mls/hr Documented by: Ciprofloxacin (Cipro) 400 mg in 200 mls @ 200 mls/hr IV Q12H COUNT INCLUDES THE [facility] Last Infusion: 05/08/19 21:39 Dose: Infused Documented by: Metronidazole (Flagyl) 500 mg in 100 mls @ 100 mls/hr IV Q8 COUNT INCLUDES THE [facility] Last Infusion: 05/09/19 06:21 Dose: Infused Documented by: Dextrose (Dextrose 10%-Water) 250 mls @ 999 mls/hr IV .Q16M PRN; Protocol PRN Reason: HYPOGLYCEMIA Insulin Human Lispro (Humalog Kwikpen (Bkc)) 0 unit SC Q6 [place]; Protocol Last Admin: 05/09/19 06:29 Dose: Not Given Documented by: Metoprolol Tartrate (Lopressor (Beta Lillian)) 2.5 mg IV Q6H PRN PRN PRN Reason: HR>120/m Morphine Sulfate () 2 mg IV Q3H PRN PRN PRN Reason: Pain Score 4-5/10 Last Admin: 05/08/19 21:37 Dose: 2 mg Documented by: Morphine Sulfate () 4 mg IV Q3H PRN PRN PRN Reason: Pain Score 6-10/10 Ondansetron HCl (Zofran) 4 mg IV Q8H PRN PRN PRN Reason: NAUSEA/VOMITING Sodium Chloride () 10 - 40 ml IV UD PRN PRN Reason: SALINE FLUSH Medical Necessity - Tobacco Use Smoking Status: Never smoker Assessment/Plan All Active Problems (Last Reviewed 04/03/19 @ 14:[address] Efrem Casas MD) Colitis (Acute) Other chest pain (Resolved) 84-year-old female with colitis 1. The patient has descending and sigmoid colitis. She is improving but she is still having pain in the left lower quadrant. Continue n.p.o. and antibiotics until pain has resolved and then start a diet. She will likely improve enough tomorrow to start a diet. Luis Farfan MD Pager: [facility] [address] [place] [address], [address] [place] [phone] Office:
[2019-05-09] MEDS: Ciprofloxacin 400 MG/200 ML BAG 200 MG IV ×2 (10:22→21:03)
--- NOTE | 2019-05-09 11:07 | CASEMGMT ---
RN CM Assessment Introduced role of RN CM to patient.? Patient is alert, oriented and able?to participate in RN CM Assessment. ?Care providers, pharmacy, and demographics verified. Presentation: Abd pain, rectal bleeding, diarrhea Admit Dx: Rectal bleeding, Inflammatory Colitis Re-Admit: No Barriers/Issues: None. Patient has four children- two Dtrs (one lives in [place], [place] and one lives in [place], [place]) two sons (one lives in [place] and other one Jaden lives on patient's same street). has a good support system and bother her Significant other Jayant and Son Dakota are very helpful. Patient states that she is currently giving herself Bone Inoculation injections for a few months. States that she was referred to Outpatient PT [facility] and was supposed to have her first appointment today but she cancelled it d/t being hospitalized. Information for [facility] transportation given per request. PCP: Bill Castaneda Specialists: Spine- At [facility] in [place], Dr Román Aguirre. Ortho in the past. Endo- Dr Sandeep Casas, Pain- Dr Santos. Preferred Pharmacy: [facility] Insurance: [facility] Rx Benefit:?Yes. Uses [facility] for Maintenance medications ?LNOK: Son Jaden [place] LW/HPOA: [facility] has both, aware only HPOA on file. HPOA- Dtr Carlene Aguero. States that her LW is old and not sure if up to date. States that she would like information for possible completion at a later time. Advanced directive with SW rack card provided. Living Arrangements:? Lives alone in a H, Sig. Other there every evening. Son Jaden lives a couple house down from her. 2 steps to enter home. ADL?s: Independent with ambulation and ADLs Transportation: Patient drives DME: Grab bars throughout home. Glucometer, Shower Chair, WC, RTS, Cane, 2WW x2, BSC. HHC: Past, cannot recall agency but thinks it was with [facility] SNF: None Goal: Home with Outpatient PT- [facility]. Denies any other questions, concerns, needs, or issues with DC planning at this time. Aware CM remains available for any emerging needs. DC PLAN: Home with Outpatient PT. RYAN Root
[2019-05-09 11:51] LABS: Bedside Glucose 99 mg/dL (70-110)
[2019-05-09 14:14] VITALS: BP 152/83; PULSE 85; RESP 18; TEMP 37; O2SAT 99
--- NOTE | 2019-05-09 17:12 | PCM.PN.HOSP ---
Patient Problems: Active and Suspected Problems (Last Reviewed 04/03/19 @ 14:[address] Efrem Casas MD) Colitis (Acute) Reason for Visit: Left-sided colitis involving descending and sigmoid colon. Objective: Patient is still having diarrhea, about 3-4 times yesterday and today 2 times with mild blood in the stool. Abdominal pain is better. Vitals/I&O's: Vital Signs Temp Pulse Resp BP Pulse Ox 98.6 F 85 18 152/83 H 99 05/09/19 14:14 05/09/19 14:14 05/09/19 14:14 05/09/19 14:14 05/09/19 14:14 Oxygen Delivery Method Room Air Weight: 143 lb 11.862 oz Body Mass Index (BMI) 24.3 Finger Stick Blood Glucose 227 Intake and Output for Last 24 Hours 05/07/19 05/08/19 05/09/19 23:59 23:59 23:59 Intake Total 1100 / 1100 1460 / 1460 Balance 1100 / 1100 1460 / 1460 General: Alert, Oriented x3, Cooperative HEENT: Atraumatic, PERRLA, EOMI, Normocephalic Neck: Supple, No JVD, Negative Carotid Bruits Lungs: Clear to auscultation, No rhonchi, No wheeze, No rales, Diminished Cardiovascular: Regular rate, Regular Rhythm, Normal S1, Normal S2, No murmurs Abdomen: Bowel Sounds Present, Soft, Non-Distended, Hypoactive Bowel Sounds, Tender - Tenderness on deep palpation on left upper and lower quadrants. Extremities: No edema, Capillary Refill Less than 3 Seconds Skin: No rashes, No breakdown Musculoskeletal: No Tenderness to Palpation of Joints or Extremities, Arthritic Changes Lymphatic: No Cervical, Supraclavicular, or Inguinal Adenopathy Neurological: Cranial nerves II-XII grossly intact Psych/Mental Status: Normal Affect, Appropriate Microbiology Past 72 Hours 05/08/19 11:50 Stool Enteric Bacteriology - Final 05/08/19 11:50 Stool C. difficile DNA Amplification - Final Laboratory Results 05/08/19 23:49: POC Glucose 102 05/09/19 06:05: WBC 12.8 H, RBC 4.39, Hgb 12.3, Hct 39.0, MCV 88.8, MCH 28.0, MCHC 31.5 L, RDW Std Deviation 43.1, RDW Coeff of Jay Jay 13.3, Plt Count 264, MPV 9.2, Immature Gran % (Auto) 0.600, Neut % (Auto) 80.9 H, Lymph % (Auto) 11.4 L, [place]alf[place] % (Auto) 6.3, Eos % (Auto) 0.5, Baso % (Auto) 0.3, Absolute Neuts (auto) 10.4 H, Absolute Lymphs (auto) 1.47, Nucleated RBC % 0 05/09/19 06:05: Sodium 140, Potassium 3.4 L, Chloride 110 H, Carbon Dioxide 26.0, Anion Gap 4 L, BUN 14, Creatinine 0.41 L, Estim Creat Clear Calc 37.45, Est GFR (MDRD) Af Amer 192, Est GFR (MDRD) Non-Af 158, BUN/Creatinine Ratio 34.2 H, Glucose 92, Calcium 8.5, Total Bilirubin 1.30 H, Direct Bilirubin 0.22, AST 42 H, ALT 40, Alkaline Phosphatase 75, Total Protein 6.1 L, Albumin 3.1 L, Globulin 3.0 05/09/19 06:23: POC Glucose 97 05/09/19 11:43: POC Glucose 99 Current Medications Acetaminophen (Tylenol) 650 mg RECTAL Q4H PRN PRN PRN Reason: Pain Score 1-10/Temp > 100.7 F Albuterol Sulfate (Ventolin Aerosols) 2.5 mg INHALATION Q2H PRN PRN PRN Reason: Shortness of Breath/Wheezing Enalaprilat (Vasotec) 1.25 mg IV Q6H PRN PRN PRN Reason: SBP>180 OR DBP>100 Glucagon () 1 mg IM .X1 PRN PRN Reason: Hypoglycemia Hydralazine HCl (Apresoline Iv) 5 mg IV Q4H PRN PRN PRN Reason: SBP>160 Last Admin: 05/08/19 16:47 Dose: 5 mg Documented by: Potassium Chloride/Sodium Chloride () 1,000 mls @ 75 mls/hr IV .[id number] [facility] Last Admin: 05/09/19 06:31 Dose: 75 mls/hr Documented by: Ciprofloxacin (Cipro) 400 mg in 200 mls @ 200 mls/hr IV Q12H [facility] Last Infusion: 05/09/19 11:22 Dose: Infused Documented by: Metronidazole (Flagyl) 500 mg in 100 mls @ 100 mls/hr IV Q8 [place] Last Infusion: 05/09/19 15:26 Dose: Infused Documented by: Dextrose (Dextrose 10%-Water) 250 mls @ 999 mls/hr IV .Q16M PRN; Protocol PRN Reason: HYPOGLYCEMIA Insulin Human Lispro (Humalog Kwikpen (Bkc)) 0 unit SC Q6 [place]; Protocol Last Admin: 05/09/19 12:46 Dose: Not Given Documented by: Metoprolol Tartrate (Lopressor (Beta Lillian)) 2.5 mg IV Q6H PRN PRN PRN Reason: HR>120/m Morphine Sulfate () 1 mg IV Q3H PRN PRN PRN Reason: Pain Score 1-10/10 Ondansetron HCl (Zofran) 4 mg IV Q8H PRN PRN PRN Reason: NAUSEA/VOMITING Sodium Chloride () 10 - 40 ml IV UD PRN PRN Reason: SALINE FLUSH Tramadol HCl (Ultram) 50 mg PO Q6H PRN PRN PRN Reason: Pain Score 1-10/10 STROKE Vital Signs/Narrative: Vital Signs Temp Pulse Resp BP Pulse Ox 05/09/19 14:14 98.6 F 85 18 152/83 H 99 Medical Necessity - Tobacco Use Smoking Status: Never smoker Assessment/Plan All Active Problems (Last Reviewed 04/03/19 @ 14:[address] Efrem Casas MD) Colitis (Acute) Other chest pain (Resolved) This 84-year-old female with no history of ischemic or inflammatory bowel disease is admitted with abdominal pain, hematochezia, diarrhea for about 2 days. 1. Descending and sigmoid colitis probably infectious or inflammatory colitis: Patient is being admitted in PCU as MedSurg status. Discussed with Dr. Miller. We will keep the patient n.p.o. except ice and juice. IV fluid normal saline +20 M EQ KCl at 100mL/h. On IV Cipro and Flagyl. CT abdomen reviewed shows extensive inflammatory reaction in the descending and sigmoid portion of colon consistent with inflammatory colitis. No peritoneal signs. 05/09: Keep n.p.o. Continue IV antibiotics. Probably start oral tomorrow when pain is subsided. 2. Diabetes mellitus type 2: Accu-Chek every 6 hourly and cover with Humalog sliding scale. 05/09: Blood sugar is controlled 3. History of Takotsubo cardiomyopathy: Patient follows with Dr. gregory. Echo done in March 2016 reported as normal LV size and systolic function. EF 65% with mild eccentric MR. Continue home cardiac medications. 4. Other comorbidities include hypertension hypothyroidism, dyslipidemia and iron deficiency anemia: Blood pressure is high, 166/94, 176/88. On IV hydralazine. Hold oral medications. Hemoglobin is 14.6/45.1 probably hemoconcentration. Patient baseline hemoglobin runs between 12.7-14. 5. Chronic back pain with spinal stenosis and knee surgery status post lumbar spine surgery, in 2016 and knee arthritis. Patient follows Dr. Santos. Due to prophylaxis: Bilateral SCDs. Pharmacological prophylaxis contraindicated. Clinical Impression(s) from Imaging Studies Chest X-Ray 05/08/19 08:02 IMPRESSION: Normal portable chest. Abdomen/Pelvis CT 05/08/19 08:11 IMPRESSION: 1. Extensive inflammatory reaction is noted involving the descending and sigmoid portions of the colon consistent with inflammatory colitis which was noted previously and has increased. 2. Old vertebral body compression fracture of T12 in this patient with osteoporosis and a previous spinal fusion of the lower lumbar spine. Microbiology Past 72 Hours 05/08/19 11:50 Stool Enteric Bacteriology - Final 05/08/19 11:50 Stool C. difficile DNA Amplification - Final Laboratory Results 05/08/19 23:49: POC Glucose 102 05/09/19 06:05: WBC 12.8 H, RBC 4.39, Hgb 12.3, Hct 39.0, MCV 88.8, MCH 28.0, MCHC 31.5 L, RDW Std Deviation 43.1, RDW Coeff of [place] 13.3, Plt Count 264, MPV 9.2, Immature Gran % (Auto) 0.600, Neut % (Auto) 80.9 H, Lymph % (Auto) 11.4 L, [place] % (Auto) 6.3, Eos % (Auto) 0.5, Baso % (Auto) 0.3, Absolute Neuts (auto) 10.4 H, Absolute Lymphs (auto) 1.47, Nucleated RBC % 0 05/09/19 06:05: Sodium 140, Potassium 3.4 L, Chloride 110 H, Carbon Dioxide 26.0, Anion Gap 4 L, BUN 14, Creatinine 0.41 L, Estim Creat Clear Calc 37.45, Est GFR (MDRD) Af Amer 192, Est GFR (MDRD) Non-Af 158, BUN/Creatinine Ratio 34.2 H, Glucose 92, Calcium 8.5, Total Bilirubin 1.30 H, Direct Bilirubin 0.22, AST 42 H, ALT 40, Alkaline Phosphatase 75, Total Protein 6.1 L, Albumin 3.1 L, Globulin 3.0 05/09/19 06:23: POC Glucose 97 05/09/19 11:43: POC Glucose 99 Code Visit Inpatient E&M: 98915 Subs Hosp L2
[2019-05-09 17:35] LABS: Bedside Glucose 72 mg/dL (70-110)
[2019-05-09 17:47] VITALS: BP 151/76; PULSE 86; RESP 16; TEMP 37.1; O2SAT 98
[2019-05-09] MEDS: Potassium Chloride 40 MEQ in 0.9% Normal Saline 1,000 ML 75 MEQ IV (17:49)
[2019-05-09 21:11] VITALS: BP 150/86; PULSE 80; RESP 16; TEMP 36.6; O2SAT 96
[2019-05-09] MEDS: Acetaminophen 325 MG Tablet 650 MG PO (23:04)
[2019-05-09 23:06] LABS: Bedside Glucose 117 mg/dL (70-110)
[2019-05-10] VITALS (9 sets, daily range): BP systolic 116–188; BP diastolic 56–90; PULSE 66–93; RESP 16–18; TEMP 36.2–36.9; O2SAT 95–100
--- NOTE | 2019-05-10 04:43 | NURSING ---
pt rang call light for beeping iv, rn in to fix. pt began yelling at rn that she had called several times and she had to wait for help. this rn answered call immediately. apologized that pt felt she had to wait. asked if she needed anything else, pt stated she needed her attends changed that she had been waiting over half an hour, (this rn rounded @ 0410 and pt sleeping) called lemon picker, attends changed. pt became tearful states she is worried about the future if she may need to go to an assisted living. provided support and reassurance, held pt hand. pt states she is ok and doesnt need anything else.
[2019-05-10] MEDS: metroNIDAZOLE 500 MG/100 ML BAG 100 MG IV ×2 (05:32→22:44)
--- NOTE | 2019-05-10 05:49 | NURSING ---
glucose 69 this am pt denies s/s low blood sugar, per Dr. Castro h&p small amt juice given will recheck
[2019-05-10 06:11] LABS: Bedside Glucose 107 mg/dL (70-110)
[2019-05-10 06:11] LABS: Bedside Glucose 69 mg/dL (70-110)
[2019-05-10 06:18] LABS: Absolute Lymphocyte Count 1.35 X10^3/uL (0.83-4.51); Absolute Neutrophil Count 8.9 X10^3/uL (2.0-7.7); Basophil# 0.04 X10^3/uL; Basophil% 0.4 % (0-1); Eosinophil# 0.12 X10^3/uL; Eosinophils% 1.1 % (0-5); Hematocrit 37.9 % (37-47); Hemoglobin 12.4 g/dL (12.0-15.0); Lymphocyte # 1.35 X10^3/ul (4.0); Lymphocyte % 12.1 % (19-41); Mean Corp Hgb Conc 32.7 g/dL (32-36); Mean Corpuscular Hgb 28.9 pg (27.0-32.0); Mean Corpuscular Volume 88.3 fL (81-99); Monocyte# 0.69 X10^3/uL; Monocyte% 6.2 % (0-10); NRBC Flagged by Analyzer 0 % (0-5); Neutrophil # 8.88 X10^3/uL (2.7-7.7); Neutrophil % 79.8 % (47-70); Platelet Count 246 K/mm3 (150-450); RBC Distribution Width CV 13.3 % (11.6-14.6); RBC Distribution Width SD 42.8 fl (35.1-43.9); Red Blood Count 4.29 M/mm3 (4.2-5.4); White Blood Count 11.1 K/mm3 (4.4-11.0)
[2019-05-10 06:37] LABS: Anion Gap 6 (5-15); BUN 11 mg/dL (7-18); BUN/Creat Ratio 25.9 RATIO (10-20); Calcium,Total 8.6 mg/dL (8.5-10.1); Chloride 114 mmol/L (98-107); Creatinine, Serum 0.42 mg/dL (0.55-1.02); EST Glomerular Filtration Rate 151 mL/min (>60); Est Glom Filt Rate - Afr Amer 183 mL/min (>60); Estimated Creatinine Clearance 37.45 ml/min; Glucose 104 mg/dL (74-106); Potassium 3.7 mmol/L (3.5-5.1); Sodium Level 143 mmol/L (136-145)
[2019-05-10] MEDS: hydrALAZINE 20 MG/ML Vial 5 MG IV ×2 (08:32→15:00)
[2019-05-10] MEDS: Ciprofloxacin 400 MG/200 ML BAG 200 MG IV ×2 (08:32→21:09)
[2019-05-10] MEDS: traMADol 50 MG Tablet PO ×2 (09:44→15:52)
--- NOTE | 2019-05-10 09:54 | PN.SURG_ITS ---
Patient Problems: Active and Suspected Problems (Last Reviewed 04/03/19 @ 14:[address] Efrem Casas MD) Colitis (Acute) Subjective: Patient is still getting some left lower quadrant pain but she reports continued improvement. - Physical Exam Vitals/I&O's: Vital Signs Temp Pulse Resp BP Pulse Ox 98.3 F 72 16 170/72 H 96 05/10/19 08:27 05/10/19 08:32 05/10/19 08:27 05/10/19 08:32 05/10/19 08:35 Oxygen Delivery Method Room Air Weight: 143 lb 4.807 oz Body Mass Index (BMI) 24.3 Finger Stick Blood Glucose 227 Intake and Output for Last 24 Hours 05/08/19 05/09/19 05/10/19 23:59 23:59 23:59 Intake Total 1100 / 1100 3235.00 / 3235.00 762.5 / 762.5 Balance 1100 / 1100 3235.00 / 3235.00 762.5 / 762.5 General: Alert, Oriented x3 Lungs: Normal air movement Abdomen: Soft, Non-Distended, Tender - Tenderness in the left lower quadrant Microbiology Past 72 Hours 05/08/19 11:50 Stool Enteric Bacteriology - Final 05/08/19 11:50 Stool C. difficile DNA Amplification - Final Laboratory Results 05/09/19 11:43: POC Glucose 99 05/09/19 17:29: POC Glucose 72 05/09/19 22:32: POC Glucose 117 H 05/10/19 05:34: POC Glucose 69 L 05/10/19 05:58: Sodium 143, Potassium 3.7, Chloride 114 H, Carbon Dioxide 23.0, Anion Gap 6, BUN 11, Creatinine 0.42 L, Estim Creat Clear Calc 37.45, Est GFR (MDRD) Af Amer 183, Est GFR (MDRD) Non-Af 151, BUN/Creatinine Ratio 25.9 H, Glucose 104, Calcium 8.6 05/10/19 05:58: WBC 11.1 H, RBC 4.29, Hgb 12.4, Hct 37.9, MCV 88.3, MCH 28.9, MCHC 32.7, RDW Std Deviation 42.8, RDW Coeff of Jay Jay 13.3, Plt Count 246, MPV 9.0, Immature Gran % (Auto) 0.400, Neut % (Auto) 79.8 H, Lymph % (Auto) 12.1 L, Story % (Auto) 6.2, Eos % (Auto) 1.1, Baso % (Auto) 0.4, Absolute Neuts (auto) 8.9 H, Absolute Lymphs (auto) 1.35, Nucleated RBC % 0 05/10/19 06:04: POC Glucose 107 Current Medications Acetaminophen (Tylenol) 650 mg PO Q4H PRN PRN PRN Reason: Pain Score 1-10/10;temp >100.7 Last Admin: 05/09/19 23:04 Dose: 650 mg Documented by: Albuterol Sulfate (Ventolin Aerosols) 2.5 mg INHALATION Q2H PRN PRN PRN Reason: Shortness of Breath/Wheezing Enalaprilat (Vasotec) 1.25 mg IV Q6H PRN PRN PRN Reason: SBP>180 OR DBP>100 Glucagon () 1 mg IM .X1 PRN PRN Reason: Hypoglycemia Hydralazine HCl (Apresoline Iv) 5 mg IV Q4H PRN PRN PRN Reason: SBP>160 Last Admin: 05/10/19 08:32 Dose: 5 mg Documented by: Ciprofloxacin (Cipro) 400 mg in 200 mls @ 200 mls/hr IV Q12H [facility] Last Infusion: 05/10/19 09:38 Dose: Infused Documented by: Metronidazole (Flagyl) 500 mg in 100 mls @ 100 mls/hr IV Q8 [facility] Last Infusion: 05/10/19 06:32 Dose: Infused Documented by: Dextrose (Dextrose 10%-Water) 250 mls @ 999 mls/hr IV .Q16M PRN; Protocol PRN Reason: HYPOGLYCEMIA Insulin Human Lispro (Humalog Kwikpen (Bkc)) 0 unit SC Q6 [facility]; Protocol Last Admin: 05/10/19 05:39 Dose: Not Given Documented by: Metoprolol Tartrate (Lopressor (Beta Lillian)) 2.5 mg IV Q6H PRN PRN PRN Reason: HR>120/m Morphine Sulfate () 1 mg IV Q3H PRN PRN PRN Reason: Pain Score 1-10/10 Ondansetron HCl (Zofran) 4 mg IV Q8H PRN PRN PRN Reason: NAUSEA/VOMITING Sodium Chloride () 10 - 40 ml IV UD PRN PRN Reason: SALINE FLUSH Tramadol HCl (Ultram) 50 mg PO Q6H PRN PRN PRN Reason: Pain Score 1-12/21 Last Admin: 05/10/19 09:44 Dose: 50 mg Documented by: Medical Necessity - Tobacco Use Smoking Status: Never smoker Assessment/Plan All Active Problems (Last Reviewed 04/03/19 @ 14:[address] Efrem Casas MD) Colitis (Acute) Other chest pain (Resolved) 84-year-old female with colitis 1. The patient is still having some left lower quadrant pain. Her white count is still also mildly elevated. I will allow her to have some clear liquids today but I would not advance her diet beyond that until the pain is completely resolved. Luis Farfan MD Pager: [facility] [address] [place] [address], [address] [place] [address] Office:
[2019-05-10 10:55] LABS: Bedside Glucose 86 mg/dL (70-110)
[2019-05-10] MEDS: metroNIDAZOLE 500 MG/100 ML BAG IV (13:36)
--- NOTE | 2019-05-10 14:57 | CASEMGMT ---
Patient has both a Healthcare POA and Healthcare LW on file at [facility]. Ericka PRO MSW
--- NOTE | 2019-05-10 15:11 | PN_ITS ---
Patient Problems: Active and Suspected Problems (Last Reviewed 04/03/19 @ 14:[address] Efrem Casas MD) Colitis (Acute) Reason for Visit: Diffuse left-sided colitis involving descending and sigmoid colon. Mild blood in the stool Objective: Overall, pain is much improved. Blood pressure is elevated 188/90 mainly secondary to oral medications being held. Patient is started on oral diet, clear liquids. To advance as per tolerated. Vitals/I&O's: Vital Signs Temp Pulse Resp BP Pulse Ox 98.0 F 76 16 188/90 H 98 05/10/19 14:59 05/10/19 14:59 05/10/19 14:59 05/10/19 14:59 05/10/19 14:59 Oxygen Delivery Method Room Air Weight: 143 lb 4.807 oz Body Mass Index (BMI) 24.3 Finger Stick Blood Glucose 227 Intake and Output for Last 24 Hours 05/08/19 05/09/19 05/10/19 23:59 23:59 23:59 Intake Total 1100 / 1100 3235.00 / 3235.00 1593.75 / 1593.75 Output Total 700 / 700 Balance 1100 / 1100 3235.00 / 3235.00 893.75 / 893.75 General: Alert, Oriented x3, Cooperative HEENT: Atraumatic, PERRLA, EOMI, Normocephalic Neck: Supple, No JVD, Negative Carotid Bruits Lungs: Clear to auscultation, No rhonchi, No wheeze, No rales, Diminished Cardiovascular: Regular rate, Regular Rhythm, Normal S1, Normal S2, No murmurs Abdomen: Bowel Sounds Present, Soft, Non-Distended, Tender - Mild deep tenderness present over hypogastrium and left lower quadrant regions Extremities: No edema, Capillary Refill Less than 3 Seconds Skin: No rashes, No breakdown Musculoskeletal: No Tenderness to Palpation of Joints or Extremities, Arthritic Changes Neurological: Cranial nerves II-XII grossly intact Psych/Mental Status: Normal Affect, Appropriate Microbiology Past 72 Hours 05/08/19 11:50 Stool Enteric Bacteriology - Final 05/08/19 11:50 Stool C. difficile DNA Amplification - Final Laboratory Results 05/09/19 17:29: POC Glucose 72 05/09/19 22:32: POC Glucose 117 H 05/10/19 05:34: POC Glucose 69 L 05/10/19 05:58: Sodium 143, Potassium 3.7, Chloride 114 H, Carbon Dioxide 23.0, Anion Gap 6, BUN 11, Creatinine 0.42 L, Estim Creat Clear Calc 37.45, Est GFR (MDRD) Af Amer 183, Est GFR (MDRD) Non-Af 151, BUN/Creatinine Ratio 25.9 H, Glucose 104, Calcium 8.6 05/10/19 05:58: WBC 11.1 H, RBC 4.29, Hgb 12.4, Hct 37.9, MCV 88.3, MCH 28.9, MCHC 32.7, RDW Std Deviation 42.8, RDW Coeff of Jay Jay 13.3, Plt Count 246, MPV 9.0, Immature Gran % (Auto) 0.400, Neut % (Auto) 79.8 H, Lymph % (Auto) 12.1 L, Dougherty % (Auto) 6.2, Eos % (Auto) 1.1, Baso % (Auto) 0.4, Absolute Neuts (auto) 8.9 H, Absolute Lymphs (auto) 1.35, Nucleated RBC % 0 05/10/19 06:04: POC Glucose 107 05/10/19 10:47: POC Glucose 86 Current Medications Acetaminophen (Tylenol) 650 mg PO Q4H PRN PRN PRN Reason: Pain Score 1-10/10;temp >100.7 Last Admin: 05/09/19 23:04 Dose: 650 mg Documented by: Albuterol Sulfate (Ventolin Aerosols) 2.5 mg INHALATION Q2H PRN PRN PRN Reason: Shortness of Breath/Wheezing Amlodipine Besylate (Norvasc) 2.5 mg PO QDAY [facility] Carvedilol (Coreg) 25 mg PO BID [facility] Ezetimibe (Zetia) 10 mg PO DAILY [facility] Enalaprilat (Vasotec) 1.25 mg IV Q6H PRN PRN PRN Reason: SBP>180 OR DBP>100 Glucagon () 1 mg IM .X1 PRN PRN Reason: Hypoglycemia Hydralazine HCl (Apresoline Iv) 5 mg IV Q4H PRN PRN PRN Reason: SBP>160 Last Admin: 05/10/19 08:32 Dose: 5 mg Documented by: Ciprofloxacin (Cipro) 400 mg in 200 mls @ 200 mls/hr IV Q12H [place] Last Infusion: 05/10/19 09:38 Dose: Infused Documented by: Metronidazole (Flagyl) 500 mg in 100 mls @ 100 mls/hr IV Q8 [place] Last Infusion: 05/10/19 14:10 Dose: Infused Documented by: Dextrose (Dextrose 10%-Water) 250 mls @ 999 mls/hr IV .Q16M PRN; Protocol PRN Reason: HYPOGLYCEMIA Insulin Human Lispro (Humalog Kwikpen (Bkc)) 0 unit SC Q6 [facility]; Protocol Last Admin: 05/10/19 11:00 Dose: Not Given Documented by: Levothyroxine Sodium (Synthroid) 112 mcg PO DAILY@0600 [facility] Lisinopril (Zestril) 40 mg PO DAILY [facility] Metoprolol Tartrate (Lopressor (Beta Lillian)) 2.5 mg IV Q6H PRN PRN PRN Reason: HR>120/m Morphine Sulfate () 1 mg IV Q3H PRN PRN PRN Reason: Pain Score 1-10/10 Non-Formulary Medication (Cholecalciferol (Vitamin D3) [Vitamin D3]) 2,000 unit PO DAILY [facility] Ondansetron HCl (Zofran) 4 mg IV Q8H PRN PRN PRN Reason: NAUSEA/VOMITING Sodium Chloride () 10 - 40 ml IV UD PRN PRN Reason: SALINE FLUSH Tramadol HCl (Ultram) 50 mg PO Q6H PRN PRN PRN Reason: Pain Score 1-10/10 Last Admin: 05/10/19 09:44 Dose: 50 mg Documented by: STROKE Vital Signs/Narrative: Vital Signs Temp Pulse Resp BP Pulse Ox 05/10/19 14:59 98.0 F 76 16 188/90 H 98 Medical Necessity - Tobacco Use Smoking Status: Never smoker Assessment/Plan All Active Problems (Last Reviewed 04/03/19 @ 14:[address] Efrem Casas MD) Colitis (Acute) Other chest pain (Resolved) This 84-year-old female with no history of ischemic or inflammatory bowel disease is admitted with abdominal pain, hematochezia, diarrhea for about 2 days. 1. Descending and sigmoid colitis probably infectious or inflammatory colitis: Patient is being admitted in PCU as MedSurg status. Discussed with Dr. Paul. We will keep the patient n.p.o. except ice and juice. IV fluid normal saline +20 M EQ KCl at 100mL/h. On IV Cipro and Flagyl. CT abdomen reviewed shows extensive inflammatory reaction in the descending and sigmoid portion of colon consistent with inflammatory colitis. No peritoneal signs. 05/09: Keep n.p.o. Continue IV antibiotics. Probably start oral tomorrow when pain is subsided. 05/10: Started on clear liquid. Continue IV antibiotics. Leukocytosis improved. 2. Hypertension: Blood pressure is high. IV hydralazine was given. Patient antihypertensive medications lisinopril and Coreg resumed. On IV hydralazine PRN. Diabetes mellitus type 2: Accu-Chek every 6 hourly and cover with Humalog sliding scale. 05/09: Blood sugar is controlled 3. History of Takotsubo cardiomyopathy: Patient follows with Dr. gregory. Echo done in March 2016 reported as normal LV size and systolic function. EF 65% with mild eccentric MR. Continue home cardiac medications. 4. Other comorbidities include hypertension hypothyroidism, dyslipidemia and iron deficiency anemia: Blood pressure is high, 166/94, 176/88. On IV hydralazine. Hold oral medications. Hemoglobin is 14.6/45.1 probably hemoconcentration. Patient baseline hemoglobin runs between 12.7-14. 5. Chronic back pain with spinal stenosis and knee surgery status post lumbar spine surgery, in 2016 and knee arthritis. Patient follows Dr. Santos. Due to prophylaxis: Bilateral SCDs. Pharmacological prophylaxis contraindicated. Active Medications Acetaminophen (Tylenol) 650 mg PO Q4H PRN PRN PRN Reason: Pain Score 1-10/10;temp >100.7 Last Admin: 05/09/19 23:04 Dose: 650 mg Documented by: Albuterol Sulfate (Ventolin Aerosols) 2.5 mg INHALATION Q2H PRN PRN PRN Reason: Shortness of Breath/Wheezing Amlodipine Besylate (Norvasc) 2.5 mg PO DAILY [facility] Carvedilol (Coreg) 25 mg PO BID [place] Last Admin: 05/10/19 15:49 Dose: 25 mg Documented by: Cholecalciferol (Vitamin D (25mcg)) 2,000 unit PO DAILY [facility] Ezetimibe (Zetia) 10 mg PO DAILY [facility] Enalaprilat (Vasotec) 1.25 mg IV Q6H PRN PRN PRN Reason: SBP>180 OR DBP>100 Glucagon () 1 mg IM .X1 PRN PRN Reason: Hypoglycemia Hydralazine HCl (Apresoline Iv) 5 mg IV Q4H PRN PRN PRN Reason: SBP>160 Last Admin: 05/10/19 15:00 Dose: 5 mg Documented by: Ciprofloxacin (Cipro) 400 mg in 200 mls @ 200 mls/hr IV Q12H [facility] Last Infusion: 05/10/19 09:38 Dose: Infused Documented by: Metronidazole (Flagyl) 500 mg in 100 mls @ 100 mls/hr IV Q8 [facility] Last Infusion: 05/10/19 14:10 Dose: Infused Documented by: Dextrose (Dextrose 10%-Water) 250 mls @ 999 mls/hr IV .Q16M PRN; Protocol PRN Reason: HYPOGLYCEMIA Insulin Human Lispro (Humalog Kwikpen (Bkc)) 0 unit SC Q6 [facility]; Protocol Last Admin: 05/10/19 11:00 Dose: Not Given Documented by: Levothyroxine Sodium (Synthroid) 112 mcg PO DAILY@0600 [facility] Lisinopril (Zestril) 40 mg PO DAILY [facility] Last Admin: 05/10/19 15:49 Dose: 40 mg Documented by: Metoprolol Tartrate (Lopressor (Beta Lillian)) 2.5 mg IV Q6H PRN PRN PRN Reason: HR>120/m Morphine Sulfate () 1 mg IV Q3H PRN PRN PRN Reason: Pain Score 1-10/10 Ondansetron HCl (Zofran) 4 mg IV Q8H PRN PRN PRN Reason: NAUSEA/VOMITING Sodium Chloride () 10 - 40 ml IV UD PRN PRN Reason: SALINE FLUSH Tramadol HCl (Ultram) 50 mg PO Q6H PRN PRN PRN Reason: Pain Score 1-10/10 Last Admin: 05/10/19 15:52 Dose: 50 mg Documented by: Clinical Impression(s) from Imaging Studies Chest X-Ray 05/08/19 08:02 IMPRESSION: Normal portable chest. Abdomen/Pelvis CT 05/08/19 08:11 IMPRESSION: 1. Extensive inflammatory reaction is noted involving the descending and sigmoid portions of the colon consistent with inflammatory colitis which was noted previously and has increased. 2. Old vertebral body compression fracture of T12 in this patient with osteoporosis and a previous spinal fusion of the lower lumbar spine. Microbiology Past 72 Hours 05/08/19 11:50 Stool Enteric Bacteriology - Final 05/08/19 11:50 Stool C. difficile DNA Amplification - Final Laboratory Results 05/09/19 17:29: POC Glucose 72 05/09/19 22:32: POC Glucose 117 H 05/10/19 05:34: POC Glucose 69 L 05/10/19 05:58: Sodium 143, Potassium 3.7, Chloride 114 H, Carbon Dioxide 23.0, Anion Gap 6, BUN 11, Creatinine 0.42 L, Estim Creat Clear Calc 37.45, Est GFR (MDRD) Af Amer 183, Est GFR (MDRD) Non-Af 151, BUN/Creatinine Ratio 25.9 H, Glucose 104, Calcium 8.6 05/10/19 05:58: WBC 11.1 H, RBC 4.29, Hgb 12.4, Hct 37.9, MCV 88.3, MCH 28.9, MCHC 32.7, RDW Std Deviation 42.8, RDW Coeff of Jay Jay 13.3, Plt Count 246, MPV 9.0, Immature Gran % (Auto) 0.400, Neut % (Auto) 79.8 H, Lymph % (Auto) 12.1 L, Dougherty % (Auto) 6.2, Eos % (Auto) 1.1, Baso % (Auto) 0.4, Absolute Neuts (auto) 8.9 H, Absolute Lymphs (auto) 1.35, Nucleated RBC % 0 05/10/19 06:04: POC Glucose 107 05/10/19 10:47: POC Glucose 86 Code Visit Inpatient E&M: 45020 Subs Hosp L2
[2019-05-10] MEDS: Carvedilol 25 MG Tablet PO ×2 (15:49→22:54)
[2019-05-10] MEDS: Lisinopril 40 MG Tablet PO (15:49)
[2019-05-10] MEDS: Ondansetron 4 MG/2 ML Vial IV (16:32)
[2019-05-10 17:11] LABS: Bedside Glucose 99 mg/dL (70-110)
[2019-05-10] MEDS: 0.9% Saline Lock 10 ML Syringe IV (21:09)
[2019-05-11] VITALS (7 sets, daily range): BP systolic 93–182; BP diastolic 57–95; PULSE 64–76; RESP 16–18; TEMP 36.2–37.1; O2SAT 98–100
[2019-05-11 00:15] LABS: Bedside Glucose 120 mg/dL (70-110)
[2019-05-11] MEDS: metroNIDAZOLE 500 MG/100 ML BAG 100 MG IV ×3 (06:24→22:37)
[2019-05-11] MEDS: Levothyroxine 112 MCG Tablet PO (06:26)
[2019-05-11 06:35] LABS: Bedside Glucose 80 mg/dL (70-110)
--- NOTE | 2019-05-11 07:42 | NURSING ---
PRAVEEN, PERSON TO NOTIFY, WAS NOTIFIED THAT PT ROOM HAS CHANGED
--- NOTE | 2019-05-11 07:54 | PN.SURG_ITS ---
Patient Problems: Active and Suspected Problems (Last Reviewed 04/03/19 @ 14:[address] Efrem Casas MD) Colitis (Acute) Subjective: The patient reports no abdominal pain in the left lower quadrant. She does feel little bit bloated. She is passing flatus. - Physical Exam Vitals/I&O's: Vital Signs Temp Pulse Resp BP Pulse Ox 97.9 F 64 18 140/70 H 100 05/11/19 02:56 05/11/19 02:56 05/11/19 02:56 05/11/19 02:56 05/11/19 02:56 Oxygen Delivery Method Room Air Weight: 145 lb 2 oz Body Mass Index (BMI) 24.3 Finger Stick Blood Glucose 227 Intake and Output for Last 24 Hours 05/09/19 05/10/19 05/11/19 23:59 23:59 23:59 Intake Total 3235.00 / 3235.00 1913.75 / 2013.75 450 / 450 Output Total 900 / 900 Balance 3235.00 / 3235.00 1013.75 / 1113.75 450 / 450 General: Alert, Oriented x3 Lungs: Normal air movement Cardiovascular: Regular rate, Regular Rhythm Abdomen: Soft, Non Tender, Non-Distended Microbiology Past 72 Hours 05/08/19 11:50 Stool Enteric Bacteriology - Final 05/08/19 11:50 Stool C. difficile DNA Amplification - Final Laboratory Results 05/10/19 10:47: POC Glucose 86 05/10/19 16:48: POC Glucose 99 05/11/19 00:08: POC Glucose 120 H 05/11/19 06:20: POC Glucose 80 Current Medications Acetaminophen (Tylenol) 650 mg PO Q4H PRN PRN PRN Reason: Pain Score 1-10/10;temp >100.7 Last Admin: 05/09/19 23:04 Dose: 650 mg Documented by: Albuterol Sulfate (Ventolin Aerosols) 2.5 mg INHALATION Q2H PRN PRN PRN Reason: Shortness of Breath/Wheezing Amlodipine Besylate (Norvasc) 2.5 mg PO DAILY [facility] Carvedilol (Coreg) 25 mg PO BID [facility] Last Admin: 05/10/19 22:54 Dose: 25 mg Documented by: Cholecalciferol (Vitamin D (25mcg)) 2,000 unit PO DAILY [facility] Ezetimibe (Zetia) 10 mg PO DAILY [facility] Enalaprilat (Vasotec) 1.25 mg IV Q6H PRN PRN PRN Reason: SBP>180 OR DBP>100 Glucagon () 1 mg IM .X1 PRN PRN Reason: Hypoglycemia Hydralazine HCl (Apresoline Iv) 5 mg IV Q4H PRN PRN PRN Reason: SBP>160 Last Admin: 05/10/19 15:00 Dose: 5 mg Documented by: Ciprofloxacin (Cipro) 400 mg in 200 mls @ 200 mls/hr IV Q12H [facility] Last Infusion: 05/10/19 22:09 Dose: Infused Documented by: Metronidazole (Flagyl) 500 mg in 100 mls @ 100 mls/hr IV Q8 [facility] Last Infusion: 05/11/19 07:24 Dose: Infused Documented by: Dextrose (Dextrose 10%-Water) 250 mls @ 999 mls/hr IV .Q16M PRN; Protocol PRN Reason: HYPOGLYCEMIA Insulin Human Lispro (Humalog Kwikpen (Bkc)) 0 unit SC Q6 [facility]; Protocol Last Admin: 05/11/19 06:23 Dose: Not Given Documented by: Levothyroxine Sodium (Synthroid) 112 mcg PO DAILY@0600 [facility] Last Admin: 05/11/19 06:26 Dose: 112 mcg Documented by: Lisinopril (Zestril) 40 mg PO DAILY [facility] Last Admin: 05/10/19 15:49 Dose: 40 mg Documented by: Metoprolol Tartrate (Lopressor (Beta Lillian)) 2.5 mg IV Q6H PRN PRN PRN Reason: HR>120/m Morphine Sulfate () 1 mg IV Q3H PRN PRN PRN Reason: Pain Score 1-10/10 Ondansetron HCl (Zofran) 4 mg IV Q8H PRN PRN PRN Reason: NAUSEA/VOMITING Last Admin: 05/10/19 16:32 Dose: 4 mg Documented by: Sodium Chloride () 10 - 40 ml IV UD PRN PRN Reason: SALINE FLUSH Last Admin: 05/10/19 21:09 Dose: 10 ml Documented by: Tramadol HCl (Ultram) 50 mg PO Q6H PRN PRN PRN Reason: Pain Score 1-10/10 Last Admin: 05/10/19 15:52 Dose: 50 mg Documented by: Medical Necessity - Tobacco Use Smoking Status: Never smoker Assessment/Plan All Active Problems (Last Reviewed 04/03/19 @ 14:[address] Efrem Casas MD) Colitis (Acute) Other chest pain (Resolved) 84-year-old female with colitis 1. The patient is doing well this morning. She is tolerating clear liquids. She did have a little bit of bloating but no abdominal pain today. She is passing flatus. I will try her on full liquids. If she tolerates this she can advance to regular diet and be discharged hopefully home tomorrow. I advised if there is any nausea or vomiting or increase in abdominal pain she should return her diet to clear liquids. Luis Farfan MD Pager: [facility] [address] [place] [address] [address] [place] [address] Office:
[2019-05-11] MEDS: 0.9% Saline Lock 10 ML Syringe IV ×4 (08:03→21:24)
--- NOTE | 2019-05-11 08:28 | PN_ITS ---
Patient Problems: Active and Suspected Problems (Last Reviewed 04/03/19 @ 14:[address] Efrem Casas MD) Colitis (Acute) Reason for Visit: Left-sided colitis Objective: Patient abdominal pain is much improved. Complain of mild bloating sensation with gas. Has not completely emptied his bowel or flatus. Diet advanced to full liquid. Vitals/I&O's: Vital Signs Temp Pulse Resp BP Pulse Ox 97.9 F 64 18 140/70 H 100 05/11/19 02:56 05/11/19 02:56 05/11/19 02:56 05/11/19 02:56 05/11/19 02:56 Oxygen Delivery Method Room Air Weight: 145 lb 2 oz Body Mass Index (BMI) 24.3 Finger Stick Blood Glucose 227 Intake and Output for Last 24 Hours 05/09/19 05/10/19 05/11/19 23:59 23:59 23:59 Intake Total 3235.00 / 3235.00 1913.75 / 2013.75 450 / 450 Output Total 900 / 900 Balance 3235.00 / 3235.00 1013.75 / 1113.75 450 / 450 General: Alert, Oriented x3, Cooperative HEENT: Atraumatic, PERRLA, EOMI, Normocephalic Neck: Supple, No JVD, Negative Carotid Bruits Lungs: Clear to auscultation, Normal air movement, No rhonchi, No wheeze, No rales Cardiovascular: Regular rate, Regular Rhythm, Normal S2, No murmurs Abdomen: Bowel Sounds Present, Soft, Non Tender, Non-Distended, Hypoactive Bowel Sounds Extremities: No edema, Capillary Refill Less than 3 Seconds Skin: No rashes, No breakdown Musculoskeletal: No Tenderness to Palpation of Joints or Extremities, Arthritic Changes Neurological: Cranial nerves II-XII grossly intact Psych/Mental Status: Normal Affect, Appropriate Microbiology Past 72 Hours 05/08/19 11:50 Stool Enteric Bacteriology - Final 05/08/19 11:50 Stool C. difficile DNA Amplification - Final Laboratory Results 05/10/19 10:47: POC Glucose 86 05/10/19 16:48: POC Glucose 99 05/11/19 00:08: POC Glucose 120 H 05/11/19 06:20: POC Glucose 80 Current Medications Acetaminophen (Tylenol) 650 mg PO Q4H PRN PRN PRN Reason: Pain Score 1-10/10;temp >100.7 Last Admin: 05/09/19 23:04 Dose: 650 mg Documented by: Albuterol Sulfate (Ventolin Aerosols) 2.5 mg INHALATION Q2H PRN PRN PRN Reason: Shortness of Breath/Wheezing Amlodipine Besylate (Norvasc) 2.5 mg PO DAILY [facility] Carvedilol (Coreg) 25 mg PO BID [facility] Last Admin: 05/10/19 22:54 Dose: 25 mg Documented by: Cholecalciferol (Vitamin D (25mcg)) 2,000 unit PO DAILY [facility] Ezetimibe (Zetia) 10 mg PO DAILY [facility] Enalaprilat (Vasotec) 1.25 mg IV Q6H PRN PRN PRN Reason: SBP>180 OR DBP>100 Glucagon () 1 mg IM .X1 PRN PRN Reason: Hypoglycemia Hydralazine HCl (Apresoline Iv) 5 mg IV Q4H PRN PRN PRN Reason: SBP>160 Last Admin: 05/10/19 15:00 Dose: 5 mg Documented by: Ciprofloxacin (Cipro) 400 mg in 200 mls @ 200 mls/hr IV Q12H [facility] Last Infusion: 05/10/19 22:09 Dose: Infused Documented by: Metronidazole (Flagyl) 500 mg in 100 mls @ 100 mls/hr IV Q8 [facility] Last Infusion: 05/11/19 07:24 Dose: Infused Documented by: Dextrose (Dextrose 10%-Water) 250 mls @ 999 mls/hr IV .Q16M PRN; Protocol PRN Reason: HYPOGLYCEMIA Insulin Human Lispro (Humalog Kwikpen (Bkc)) 0 unit SC Q6 [facility]; Protocol Last Admin: 05/11/19 06:23 Dose: Not Given Documented by: Levothyroxine Sodium (Synthroid) 112 mcg PO DAILY@0600 [facility] Last Admin: 05/11/19 06:26 Dose: 112 mcg Documented by: Lisinopril (Zestril) 40 mg PO DAILY [facility] Last Admin: 05/10/19 15:49 Dose: 40 mg Documented by: Metoprolol Tartrate (Lopressor (Beta Lillian)) 2.5 mg IV Q6H PRN PRN PRN Reason: HR>120/m Morphine Sulfate () 1 mg IV Q3H PRN PRN PRN Reason: Pain Score 1-10/10 Ondansetron HCl (Zofran) 4 mg IV Q8H PRN PRN PRN Reason: NAUSEA/VOMITING Last Admin: 05/10/19 16:32 Dose: 4 mg Documented by: Sodium Chloride () 10 - 40 ml IV UD PRN PRN Reason: SALINE FLUSH Last Admin: 05/11/19 08:03 Dose: 10 ml Documented by: Tramadol HCl (Ultram) 50 mg PO Q6H PRN PRN PRN Reason: Pain Score 1-10/10 Last Admin: 05/10/19 15:52 Dose: 50 mg Documented by: Medical Necessity - Tobacco Use Smoking Status: Never smoker Assessment/Plan All Active Problems (Last Reviewed 04/03/19 @ 14:[address] Efrem Casas MD) Colitis (Acute) Other chest pain (Resolved) This 84-year-old female with no history of ischemic or inflammatory bowel disease is admitted with abdominal pain, hematochezia, diarrhea for about 2 days. 1. Descending and sigmoid colitis probably infectious or inflammatory colitis: Patient is being admitted in PCU as MedSurg status. Discussed with Dr. Miller. We will keep the patient n.p.o. except ice and juice. IV fluid normal saline +20 M EQ KCl at 100mL/h. On IV Cipro and Flagyl. CT abdomen reviewed shows extensive inflammatory reaction in the descending and sigmoid portion of colon consistent with inflammatory colitis. No peritoneal signs. 05/09: Keep n.p.o. Continue IV antibiotics. Probably start oral tomorrow when pain is subsided. 05/10: Started on clear liquid. Continue IV antibiotics. Leukocytosis improved. 05/11: Diet advanced to full liquid. Continue antibiotics. Labs ordered. 2. Hypertension: Blood pressure is high. IV hydralazine was given. Patient antihypertensive medications lisinopril and Coreg resumed. On IV hydralazine PRN. 05/11 blood pressure is controlled. 3. Diabetes mellitus type 2: Accu-Chek every 6 hourly and cover with Humalog sliding scale. 05/09: Blood sugar is controlled 05/11: Blood pressure controlled 3. History of Takotsubo cardiomyopathy: Patient follows with Dr. gregory. Echo done in March 2016 reported as normal LV size and systolic function. EF 65% with mild eccentric MR. Continue home cardiac medications. 4. Other comorbidities include hypertension hypothyroidism, dyslipidemia and iron deficiency anemia: Blood pressure is high, 166/94, 176/88. On IV hydralazine. Hold oral medications. Hemoglobin is 14.6/45.1 probably hemoconcentration. Patient baseline hemoglobin runs between 12.7-14. 5. Chronic back pain with spinal stenosis and knee surgery status post lumbar spine surgery, in 2016 and knee arthritis. Patient follows Dr. Santos. Due to prophylaxis: Bilateral SCDs. Pharmacological prophylaxis contraindicated. Clinical Impression(s) from Imaging Studies Chest X-Ray 05/08/19 08:02 IMPRESSION: Normal portable chest. Abdomen/Pelvis CT 05/08/19 08:11 IMPRESSION: 1. Extensive inflammatory reaction is noted involving the descending and sigmoid portions of the colon consistent with inflammatory colitis which was noted previously and has increased. 2. Old vertebral body compression fracture of T12 in this patient with osteoporosis and a previous spinal fusion of the lower lumbar spine. Microbiology Past 72 Hours 05/08/19 11:50 Stool Enteric Bacteriology - Final 05/08/19 11:50 Stool C. difficile DNA Amplification - Final Laboratory Results 05/09/19 17:29: POC Glucose 72 05/09/19 22:32: POC Glucose 117 H 05/10/19 05:34: POC Glucose 69 L 05/10/19 05:58: Sodium 143, Potassium 3.7, Chloride 114 H, Carbon Dioxide 23.0, Anion Gap 6, BUN 11, Creatinine 0.42 L, Estim Creat Clear Calc 37.45, Est GFR (MDRD) Af Amer 183, Est GFR (MDRD) Non-Af 151, BUN/Creatinine Ratio 25.9 H, Glucose 104, Calcium 8.6 05/10/19 05:58: WBC 11.1 H, RBC 4.29, Hgb 12.4, Hct 37.9, MCV 88.3, MCH 28.9, MCHC 32.7, RDW Std Deviation 42.8, RDW Coeff of Jay Jay 13.3, Plt Count 246, MPV 9.0, Immature Gran % (Auto) 0.400, Neut % (Auto) 79.8 H, Lymph % (Auto) 12.1 L, Beaver % (Auto) 6.2, Eos % (Auto) 1.1, Baso % (Auto) 0.4, Absolute Neuts (auto) 8.9 H, Absolute Lymphs (auto) 1.35, Nucleated RBC % 0 05/10/19 06:04: POC Glucose 107 05/10/19 10:47: POC Glucose 86 Code Visit Inpatient E&M: 88687 Subs Hosp L2
[2019-05-11 08:52] LABS: Absolute Lymphocyte Count 1.22 X10^3/uL (0.83-4.51); Absolute Neutrophil Count 6.2 X10^3/uL (2.0-7.7); Basophil# 0.03 X10^3/uL; Basophil% 0.4 % (0-1); Eosinophil# 0.08 X10^3/uL; Hemoglobin 12.2 g/dL (12.0-15.0); Lymphocyte # 1.22 X10^3/ul (4.0); Mean Corp Hgb Conc 32.1 g/dL (32-36); Mean Corpuscular Hgb 28.7 pg (27.0-32.0); Mean Corpuscular Volume 89.4 fL (81-99); Monocyte% 7.4 % (0-10); NRBC Flagged by Analyzer 0 % (0-5); Neutrophil # 6.16 X10^3/uL (2.7-7.7); Platelet Count 258 K/mm3 (150-450); RBC Distribution Width CV 13.4 % (11.6-14.6); RBC Distribution Width SD 43.6 fl (35.1-43.9); Red Blood Count 4.25 M/mm3 (4.2-5.4); White Blood Count 8.1 K/mm3 (4.4-11.0)
[2019-05-11 09:16] LABS: Anion Gap 5 (5-15); BUN 13 mg/dL (7-18); BUN/Creat Ratio 18.4 RATIO (10-20); Calcium,Total 8.8 mg/dL (8.5-10.1); Chloride 108 mmol/L (98-107); Creatinine, Serum 0.71 mg/dL (0.55-1.02); EST Glomerular Filtration Rate 84 mL/min (>60); Est Glom Filt Rate - Afr Amer 102 mL/min (>60); Estimated Creatinine Clearance 37.45 ml/min; Glucose 145 mg/dL (74-106); Potassium 3.7 mmol/L (3.5-5.1); Sodium Level 139 mmol/L (136-145)
[2019-05-11] MEDS: Carvedilol 25 MG Tablet PO ×2 (09:21→20:47)
[2019-05-11] MEDS: Ezetimibe 10 MG Tablet PO (09:21)
[2019-05-11] MEDS: Ciprofloxacin 400 MG/200 ML BAG 200 MG IV ×2 (09:21→21:25)
[2019-05-11] MEDS: Lisinopril 40 MG Tablet PO (09:21)
[2019-05-11] MEDS: amLODIPine 2.5 MG Tablet PO (09:21)
--- NOTE | 2019-05-11 10:41 | CASEMGMT ---
Addendum entered by Michelle Cuevas 05/11/19 13:11: SW spoke w/Pearl at [facility], they can take pt and will start precert. SW asked Pearl to call ALEXANDER Charis should she get precert today for pt. SW let pt know that if she does not hear from SW by the end of today she will be here through the weekend. SW let Charis know that she may hear from Pearl at [facility] for this pt if precert is attained, and to let pt know. RYAN Morrow Addendum entered by Michelle Cuevas 05/11/19 12:46: Pt asked to speak w/SW again. SW met w/pt, she wanted to review again the retirement choices. Upon further discussion pt decided to stay w/the referral to [facility]. Pt asked if she does better on the weekend can she go home. SW let pt know that yes, if she is doing well enough to return home she can return home. Pt states understanding. Pt also said that her family would be able to take her to [facility] if this does end up being the final plan. SW will continue to follow, waiting for a call back from [facility]. RYAN Morrow Addendum entered by Michelle Cuevas 05/11/19 11:02: U does not have bed availability. SW spoke w/pt again, [facility] is her second choice. SW faxed referral, spoke w/Cecilia at [facility]. She is to let SW know if she can take pt and if they can take pt will start the precert. RYAN Morrow Original Note: SW spoke w/pt in room in regard to discharge plan. Pt is agreeable to look into retirement for her. SW provided pt w/list of nursing homes that take her insurance, along with a list of the star ratings for the nursing homes. Pt states she [facility] to [facility] before and would prefer to go there if possible. SW explained will call and make referral, let her know. SW called [facility], message left on referral phone, will await a call back. RYAN Morrow
[2019-05-11 11:26] LABS: Bedside Glucose 147 mg/dL (70-110)
[2019-05-11 16:55] LABS: Bedside Glucose 104 mg/dL (70-110)
[2019-05-11] MEDS: traMADol 50 MG Tablet PO (19:53)
[2019-05-11 22:41] LABS: Bedside Glucose 184 mg/dL (70-110)
[2019-05-12] MEDS: metroNIDAZOLE 500 MG/100 ML BAG 100 MG IV (05:14)
[2019-05-12] MEDS: Levothyroxine 112 MCG Tablet PO (05:17)
[2019-05-12 05:18] VITALS: BP 157/74; PULSE 56; RESP 16; TEMP 36.7; O2SAT 97
--- NOTE | 2019-05-12 06:22 | PCM.PN.SRG ---
Patient Problems: Active and Suspected Problems (Last Reviewed 04/03/19 @ 14:[address] Efrme Casas MD) Colitis (Acute) Subjective: Patient is passing flatus. Is ambulating well. Tolerating p.o.'s well. No bowel movements as of yet. Objective: Abdomen is soft flat and nontender - Physical Exam Vitals/I&O's: Vital Signs Temp Pulse Resp BP Pulse Ox 98.1 F 56 L 16 157/74 H 97 05/12/19 05:18 05/12/19 05:18 05/12/19 05:18 05/12/19 05:18 05/12/19 05:18 Oxygen Delivery Method Room Air Weight: 145 lb 2 oz Body Mass Index (BMI) 24.3 Finger Stick Blood Glucose 227 Intake and Output for Last 24 Hours 05/10/19 05/11/19 05/12/19 23:59 23:59 23:59 Intake Total 1913.75 / 2013.75 2053.5 / 2053.5 184.75 / 184.75 Output Total 900 / 900 450 / 450 Balance 1013.75 / 1113.75 1603.5 / 1603.5 184.75 / 184.75 Microbiology Past 72 Hours 05/08/19 11:50 Stool Enteric Bacteriology - Final Laboratory Results 05/11/19 06:20: POC Glucose 80 05/11/19 08:32: WBC 8.1, RBC 4.25, Hgb 12.2, Hct 38.0, MCV 89.4, MCH 28.7, MCHC 32.1, RDW Std Deviation 43.6, RDW Coeff of Jay Jay 13.4, Plt Count 258, MPV 9.0, Immature Gran % (Auto) 0.200, Neut % (Auto) 76.0 H, Lymph % (Auto) 15.0 L, Gates % (Auto) 7.4, Eos % (Auto) 1.0, Baso % (Auto) 0.4, Absolute Neuts (auto) 6.2, Absolute Lymphs (auto) 1.22, Nucleated RBC % 0 05/11/19 08:32: Sodium 139, Potassium 3.7, Chloride 108 H, Carbon Dioxide 26.0, Anion Gap 5, BUN 13, Creatinine 0.71, Estim Creat Clear Calc 37.45, Est GFR (MDRD) Af Amer 102, Est GFR (MDRD) Non-Af 84, BUN/Creatinine Ratio 18.4, Glucose 145 H, Calcium 8.8 05/11/19 11:21: POC Glucose 147 H 05/11/19 16:34: POC Glucose 104 05/11/19 22:35: POC Glucose 184 H Current Medications Acetaminophen (Tylenol) 650 mg PO Q4H PRN PRN PRN Reason: Pain Score 1-10/10;temp >100.7 Last Admin: 05/09/19 23:04 Dose: 650 mg Documented by: Albuterol Sulfate (Ventolin Aerosols) 2.5 mg INHALATION Q2H PRN PRN PRN Reason: Shortness of Breath/Wheezing Amlodipine Besylate (Norvasc) 2.5 mg PO DAILY [facility] Last Admin: 05/11/19 09:21 Dose: 2.5 mg Documented by: Carvedilol (Coreg) 25 mg PO BID [facility] Last Admin: 05/11/19 20:47 Dose: 25 mg Documented by: Cholecalciferol (Vitamin D (25mcg)) 2,000 unit PO DAILY [facility] Last Admin: 05/11/19 09:21 Dose: 2,000 unit Documented by: Ezetimibe (Zetia) 10 mg PO DAILY [facility] Last Admin: 05/11/19 09:21 Dose: 10 mg Documented by: Enalaprilat (Vasotec) 1.25 mg IV Q6H PRN PRN PRN Reason: SBP>180 OR DBP>100 Glucagon () 1 mg IM .X1 PRN PRN Reason: Hypoglycemia Hydralazine HCl (Apresoline Iv) 5 mg IV Q4H PRN PRN PRN Reason: SBP>160 Last Admin: 05/10/19 15:00 Dose: 5 mg Documented by: Ciprofloxacin (Cipro) 400 mg in 200 mls @ 200 mls/hr IV Q12H [facility] Last Infusion: 05/11/19 22:25 Dose: Infused Documented by: Metronidazole (Flagyl) 500 mg in 100 mls @ 100 mls/hr IV Q8 [facility] Last Infusion: 05/12/19 06:14 Dose: Infused Documented by: Dextrose (Dextrose 10%-Water) 250 mls @ 999 mls/hr IV .Q16M PRN; Protocol PRN Reason: HYPOGLYCEMIA Sodium Chloride () 250 mls @ 15 mls/hr IV .[id number] PRN PRN Reason: Saline Flush Last Infusion: 05/12/19 06:14 Dose: 15 mls/hr Documented by: Insulin Human Lispro (Humalog Kwikpen (Bkc)) 0 unit SC ACHS [facility]; Protocol Last Admin: 05/11/19 22:37 Dose: Not Given Documented by: Levothyroxine Sodium (Synthroid) 112 mcg PO DAILY@0600 [facility] Last Admin: 05/12/19 05:17 Dose: 112 mcg Documented by: Lisinopril (Zestril) 40 mg PO DAILY [facility] Last Admin: 05/11/19 09:21 Dose: 40 mg Documented by: Metoprolol Tartrate (Lopressor (Beta Lillian)) 2.5 mg IV Q6H PRN PRN PRN Reason: HR>120/m Morphine Sulfate () 1 mg IV Q3H PRN PRN PRN Reason: Pain Score 1-10/10 Ondansetron HCl (Zofran) 4 mg IV Q8H PRN PRN PRN Reason: NAUSEA/VOMITING Last Admin: 05/10/19 16:32 Dose: 4 mg Documented by: Sodium Chloride () 10 - 40 ml IV UD PRN PRN Reason: SALINE FLUSH Last Admin: 05/11/19 21:24 Dose: 10 ml Documented by: Tramadol HCl (Ultram) 50 mg PO Q6H PRN PRN PRN Reason: Pain Score 1-10/10 Last Admin: 05/11/19 19:53 Dose: 50 mg Documented by: Medical Necessity - Tobacco Use Smoking Status: Never smoker Assessment/Plan All Active Problems (Last Reviewed 04/03/19 @ 14:[address] Efrem Casas MD) Colitis (Acute) Other chest pain (Resolved) At this point I believe the patient is acceptable to be discharged. Patient to follow-up with Dr. Kayla bang in 1 week
[2019-05-12] MEDS: traMADol 50 MG Tablet PO (06:51)
[2019-05-12 06:55] LABS: Bedside Glucose 94 mg/dL (70-110)
[2019-05-12 07:32] VITALS: O2SAT 99
[2019-05-12 07:53] LABS: Anion Gap 6 (5-15); BUN 9 mg/dL (7-18); BUN/Creat Ratio 22.4 RATIO (10-20); Calcium,Total 8.7 mg/dL (8.5-10.1); Chloride 110 mmol/L (98-107); EST Glomerular Filtration Rate 161 mL/min (>60); Est Glom Filt Rate - Afr Amer 195 mL/min (>60); Estimated Creatinine Clearance 37.45 ml/min; Glucose 106 mg/dL (74-106); Potassium 3.5 mmol/L (3.5-5.1); Sodium Level 141 mmol/L (136-145)
[2019-05-12] MEDS: Ezetimibe 10 MG Tablet PO (08:18)
[2019-05-12] MEDS: Lisinopril 40 MG Tablet PO (08:18)
[2019-05-12] MEDS: Carvedilol 25 MG Tablet PO (08:18)
[2019-05-12] MEDS: amLODIPine 2.5 MG Tablet PO (08:18)
[2019-05-12] MEDS: Ciprofloxacin 400 MG/200 ML BAG 200 MG IV (08:23)
[2019-05-12 08:33] VITALS: PULSE 71; RESP 18; O2SAT 97
--- NOTE | 2019-05-12 09:46 | DCINST_ITS ---
- Discharge Diagnoses Current Active Problems: Current Active and Chronic Problems (Last Reviewed 04/03/19 @ 14:[address] Efrem Casas MD) Colitis (Acute) You will use the following diet at home:: Regular - soft texture diet for 4 days Your food should be the consistency of: Regular Discharge Activity: May Not Drive Weight Bearing Status: Weight bearing as tolerated Call your doctor if you observe: Fever of 101 or Higher, Numbness or Tingling, Inability to urinate, Inability to have a bowel movement, Shortness of breath, Dizziness, Fainting spells, Swelling in the ankles, Chest pain, Prolonged hiccoughing, Increased palpitations (irregular heartbeat), Calf discomfort Allergies/Adverse Reactions: Allergies amoxicillin Allergy (Verified 05/08/19 07:58) Unknown Anesthetics - Amide Type Allergy (Verified 05/08/19 07:58) Unknown Anesthetics - Lizzette Type- Parabens [Anesthetics - Lizzette Type] Allergy (Verified 05/08/19 07:58) Unknown Fqwlcde-Uon-Qvi Reductase Inhibitor Allergy (Verified 05/08/19 07:58) Unknown Medications to take at Discharge Cholecalciferol (Vitamin D3) [Vitamin D3] 2,000 unit PO DAILY 10/17/13 ezetimibe 10 mg tablet 10 mg PO DAILY 12/15/17 acetaminophen 500 mg tablet 500 mg PO BID tab 06/19/18 Carvedilol 25 mg PO BID 05/08/19 Levothyroxine [Synthroid] 112 mcg PO DAILY@0600 05/08/19 Lisinopril 40 mg PO DAILY 05/08/19 Teriparatide [Forteo] 20 mcg SUBCUT DAILY 05/08/19 Tramadol HCl [Ultram] 50 mg PO BID 05/08/19 Amlodipine [Norvasc] 5 mg PO QDAY #0 05/12/19 Ciprofloxacin [Cipro] 500 mg PO BID #12 tab 05/12/19 Metronidazole [Flagyl] 500 mg PO TID #18 tab 05/12/19 The following prescriptions were given: Ciprofloxacin [Cipro] 500 mg PO BID #12 tab [id number] Metronidazole [Flagyl] 500 mg PO TID #18 tab Transmission Status: [id number] Primary Care Physician: Bill Castaneda MD [Primary Care Provider] - Please follow up with your Primary Care Physician in: in 2 weeks Test Results: Test results from this visit will be discussed in further detail at your follow- up appointment, if applicable. Please Follow Up With: Bill Castaneda MD Please Follow Up With: Pj Doll MD When: in 2 weeks Please Follow Up With: Efrem Casas MD When: 4 weeks Please Follow Up With: Luis Farfan MD When: in 1 week
--- NOTE | 2019-05-12 09:48 | DS.PCM_ITS ---
Discharge Date and Diagnosis Date of Admission: 05/08/19 Date of Discharge: 05/12/19 - Primary Discharge Diagnosis Active and Suspected Problems (Last Reviewed 04/03/19 @ 14:[address] Efrem Casas MD) Colitis (Acute) - Secondary Discharge Diagnosis Chronic Problems (Last Reviewed 04/03/19 @ 14:[address] Efrem Casas MD) Back pain (Chronic) Controlled diabetes mellitus with peripheral circulatory disorder (Chronic) Old anterior wall myocardial infarction (Chronic) Essential (primary) hypertension (Chronic) HLD (hyperlipidemia) (Chronic) Palpitations (Chronic) Takotsubo cardiomyopathy (Chronic) Hospital Course and Treatment Operations: - - R THR on 12/[address] Ceballos Summary of Care Provided: [] This 84-year-old female with no history of ischemic or inflammatory bowel disease is admitted with abdominal pain, hematochezia, diarrhea for about 2 days. 1. Descending and sigmoid colitis probably infectious or inflammatory colitis: Patient is being admitted in PCU as MedSurg status. Discussed with Dr. Miller. We will keep the patient n.p.o. except ice and juice. IV fluid normal saline +20 M EQ KCl at 100mL/h. On IV Cipro and Flagyl. CT abdomen reviewed shows extensive inflammatory reaction in the descending and sigmoid portion of colon consistent with inflammatory colitis. No peritoneal signs. Tolerated solid diet. Discharged on Cipro and Flagyl to complete a total of [address] Rigo coates in 1 week. 2. Hypertension: Blood pressure is high. IV hydralazine was given. Patient antihypertensive medications lisinopril and Coreg resumed. On IV hydralazine PRN. blood pressure is controlled. 3. Diabetes mellitus type 2: Accu-Chek every 6 hourly and cover with Humalog sliding scale. Blood sugar control. 3. History of Takotsubo cardiomyopathy: Patient follows with Dr. gregory. Echo done in March 2016 reported as normal LV size and systolic function. EF 65% with mild eccentric MR. Continue home cardiac medications. 4. Other comorbidities include hypertension hypothyroidism, dyslipidemia and iron deficiency anemia: Blood pressure is high, 166/94, 176/88. On IV hydralazine. Hold oral medications. Hemoglobin is 14.6/45.1 probably hemoconcentration. Patient baseline hemoglobin runs between 12.7-14. 5. Chronic back pain with spinal stenosis and knee surgery status post lumbar spine surgery, in 2016 and knee arthritis. Patient follows Dr. Santos. Due to prophylaxis: Bilateral SCDs. Pharmacological prophylaxis contraindicated. Discharge medication reconciliation done. Discharge follow-up instructions completed. Discharge process discussed with the patient and all questions were answered to patient's satisfaction. Total time spent, exact 35 minutes on discharge meds reconciliation, examination, coordination of care with nurses and ancillary staff, review of imaging and blood test and discussion with the patient on follow-up instructions Clinical Impression(s) from Imaging Studies Chest X-Ray 05/08/19 08:02 IMPRESSION: Normal portable chest. Abdomen/Pelvis CT 05/08/19 08:11 IMPRESSION: 1. Extensive inflammatory reaction is noted involving the descending and sigmoid portions of the colon consistent with inflammatory colitis which was noted previously and has increased. 2. Old vertebral body compression fracture of T12 in this patient with osteoporosis and a previous spinal fusion of the lower lumbar spine. Microbiology Past 72 Hours 05/08/19 11:50 Stool Enteric Bacteriology - Final 05/08/19 11:50 Stool C. difficile DNA Amplification - Final Subjective: Patient denies abdominal pain. Patient moving flatus. Patient had moderate size of bowel movement yesterday. Objective: General: Alert, Oriented x3, Cooperative HEENT: Atraumatic, PERRLA, EOMI, Normocephalic Neck: Supple, No JVD, Negative Carotid Bruits Lungs: Clear to auscultation, Normal air movement, No rhonchi, No wheeze, No r ales Cardiovascular: Regular rate, Regular Rhythm, Normal S2, No murmurs Abdomen: Bowel Sounds Present, Soft, Non Tender, Non-Distended, Extremities: No edema, Capillary Refill Less than 3 Seconds Skin: No rashes, No breakdown Musculoskeletal: No Tenderness to Palpation of Joints or Extremities, Arthritic Changes Neurological: Cranial nerves II-XII grossly intact Psych/Mental Status: Normal Affect, Appropriate - Physical Exam Vitals/I&O's: Vital Signs Temp Pulse Resp BP Pulse Ox 98.1 F 71 18 157/74 H 97 05/12/19 05:18 05/12/19 08:33 05/12/19 08:33 05/12/19 05:18 05/12/19 08:33 Oxygen Delivery Method Room Air Weight: 145 lb 2 oz Body Mass Index (BMI) 24.3 Finger Stick Blood Glucose 227 Intake and Output for Last 24 Hours 05/10/19 05/11/19 05/12/19 23:59 23:59 23:59 Intake Total 1913.75 / 2012.75 2053.5 / 2053.5 347.50 / 347.50 Output Total 900 / 900 450 / 450 Balance 1013.75 / 1113.75 1603.5 / 1603.5 347.50 / 347.50 Microbiology Past 72 Hours 05/08/19 11:50 Stool Enteric Bacteriology - Final Laboratory Results 05/11/19 11:21: POC Glucose 147 H 05/11/19 16:34: POC Glucose 104 05/11/19 22:35: POC Glucose 184 H 05/12/19 06:33: Sodium 141, Potassium 3.5, Chloride 110 H, Carbon Dioxide 25.0, Anion Gap 6, BUN 9, Creatinine 0.40 L, Estim Creat Clear Calc 37.45, Est GFR (MDRD) Af Amer 195, Est GFR (MDRD) Non-Af 161, BUN/Creatinine Ratio 22.4 H, Glucose 106, Calcium 8.7 05/12/19 06:50: POC Glucose 94 Current Medications Acetaminophen (Tylenol) 650 mg PO Q4H PRN PRN PRN Reason: Pain Score 1-10/10;temp >100.7 Last Admin: 05/09/19 23:04 Dose: 650 mg Documented by: Albuterol Sulfate (Ventolin Aerosols) 2.5 mg INHALATION Q2H PRN PRN PRN Reason: Shortness of Breath/Wheezing Amlodipine Besylate (Norvasc) 2.5 mg PO DAILY [facility] Last Admin: 05/12/19 08:18 Dose: 2.5 mg Documented by: Carvedilol (Coreg) 25 mg PO BID [facility] Last Admin: 05/12/19 08:18 Dose: 25 mg Documented by: Cholecalciferol (Vitamin D (25mcg)) 2,000 unit PO DAILY [facility] Last Admin: 05/12/19 08:18 Dose: 2,000 unit Documented by: Ciprofloxacin HCl (Cipro) 500 mg PO BID [facility] Ezetimibe (Zetia) 10 mg PO DAILY [facility] Last Admin: 05/12/19 08:18 Dose: 10 mg Documented by: Enalaprilat (Vasotec) 1.25 mg IV Q6H PRN PRN PRN Reason: SBP>180 OR DBP>100 Glucagon () 1 mg IM .X1 PRN PRN Reason: Hypoglycemia Hydralazine HCl (Apresoline Iv) 5 mg IV Q4H PRN PRN PRN Reason: SBP>160 Last Admin: 05/10/19 15:00 Dose: 5 mg Documented by: Ciprofloxacin (Cipro) 400 mg in 200 mls @ 200 mls/hr IV Q12H [facility] Last Infusion: 05/12/19 09:02 Dose: 0 mls/hr Documented by: Metronidazole (Flagyl) 500 mg in 100 mls @ 100 mls/hr IV Q8 [facility] Last Infusion: 05/12/19 06:14 Dose: Infused Documented by: Dextrose (Dextrose 10%-Water) 250 mls @ 999 mls/hr IV .Q16M PRN; Protocol PRN Reason: HYPOGLYCEMIA Sodium Chloride () 250 mls @ 15 mls/hr IV .[id number] PRN PRN Reason: Saline Flush Last Infusion: 05/12/19 08:25 Dose: 0 mls/hr Documented by: Insulin Human Lispro (Humalog Kwikpen (Bkc)) 0 unit SC ACHS [facility]; Protocol Last Admin: 05/12/19 06:51 Dose: Not Given Documented by: Levothyroxine Sodium (Synthroid) 112 mcg PO DAILY@0600 [facility] Last Admin: 05/12/19 05:17 Dose: 112 mcg Documented by: Lisinopril (Zestril) 40 mg PO DAILY [facility] Last Admin: 05/12/19 08:18 Dose: 40 mg Documented by: Metoprolol Tartrate (Lopressor (Beta Lillian)) 2.5 mg IV Q6H PRN PRN PRN Reason: HR>120/m Morphine Sulfate () 1 mg IV Q3H PRN PRN PRN Reason: Pain Score 1-10/10 Ondansetron HCl (Zofran) 4 mg IV Q8H PRN PRN PRN Reason: NAUSEA/VOMITING Last Admin: 05/10/19 16:32 Dose: 4 mg Documented by: Potassium Chloride (K-Dur) 40 meq PO Q3H [facility] Stop: 05/12/19 12:31 Sodium Chloride () 10 - 40 ml IV UD PRN PRN Reason: SALINE FLUSH Last Admin: 05/11/19 21:24 Dose: 10 ml Documented by: Tramadol HCl (Ultram) 50 mg PO Q6H PRN PRN PRN Reason: Pain Score 1-12/21 Last Admin: 05/12/19 06:51 Dose: 50 mg Documented by: Discharge Activity: May Not Drive Weight Bearing Status: Weight bearing as tolerated Call your doctor if you observe: Fever of 101 or Higher, Numbness or Tingling, Inability to urinate, Inability to have a bowel movement, Shortness of breath, Dizziness, Fainting spells, Swelling in the ankles, Chest pain, Prolonged hicco ughing, Increased palpitations (irregular heartbeat), Calf discomfort Home Medications: Medications to take at Discharge Cholecalciferol (Vitamin D3) [Vitamin D3] 2,000 unit PO DAILY 10/17/13 ezetimibe 10 mg tablet 10 mg PO DAILY 12/15/17 acetaminophen 500 mg tablet 500 mg PO BID tab 06/19/18 Carvedilol 25 mg PO BID 05/08/19 Levothyroxine [Synthroid] 112 mcg PO DAILY@0600 05/08/19 Lisinopril 40 mg PO DAILY 05/08/19 Teriparatide [Forteo] 20 mcg SUBCUT DAILY 05/08/19 Tramadol HCl [Ultram] 50 mg PO BID 05/08/19 Amlodipine [Norvasc] 5 mg PO QDAY #0 05/12/19 Ciprofloxacin [Cipro] 500 mg PO BID #12 tab 05/12/19 Metronidazole [Flagyl] 500 mg PO TID #18 tab 05/12/19 Following Prescrptions Were Given to Patient: Ciprofloxacin [Cipro] 500 mg PO BID #12 tab Transmission Status: Received by [facility] Metronidazole [Flagyl] 500 mg PO TID #18 tab Transmission Status: Received by [facility] Primary Care Physician: Bill Castaneda MD [Primary Care Provider] - Please follow up with your Primary Care Physician in: in 2 weeks Please Follow Up With: Bill Castaneda MD Please Follow Up With: Pj Gregory MD When: in 2 weeks Please Follow Up With: Efrem Casas MD When: 4 weeks Please Follow Up With: Luis Farfan MD When: in 1 week Medical Necessity - Tobacco Use Smoking Status: Never smoker Meaningful Use Info Meaningful Use Diagnoses (Choose all that apply): None applicable Code Visit Inpatient E&M: 81040 Disch Hosp
[2019-05-12 10:33] VITALS: BP 111/58; PULSE 60; RESP 18; TEMP 36.6; O2SAT 98
[2019-05-12] MEDS: Ciprofloxacin 500 MG Tablet PO (10:41)
--- NOTE | 2019-05-14 09:35 | CASEMGMT ---
Patient was approved to go to [facility]. However, it appears she was discharged home over the weekend. SW let Olivia at [facility] know this information. Ericka PRO MSW
== END 2019-05-12 12:08 | disposition home or self-care (01) | DRG 392 ==
LOC: ED 11:26 → PCU 13:06 → MS2 05-10 22:53 → MS3 05-11 14:58
PROVIDERS: Admitting Provider Internal Medicine; Emergency Provider Emergency Medicine; PCP Family Medicine; Visit Provider Internal Medicine
DX: K52.9 Noninfective gastroenteritis and colitis, unspecified (principal); I10 Essential (primary) hypertension; E78.5 Hyperlipidemia, unspecified; E03.9 Hypothyroidism, unspecified; D50.9 Iron deficiency anemia, unspecified; G89.29 Other chronic pain; M17.10 Unilateral primary osteoarthritis, unspecified knee; M54.9 Dorsalgia, unspecified; E11.51 Type 2 diabetes mellitus with diabetic peripheral angiopathy without gangrene; I25.2 Old myocardial infarction
CPT/HCPCS: 36415; 71045; 74176; 80048; 80076; 81001; 82962; 84484; 85025; 85610; 86850; 86900; 86901; 87493; 87506; 93005; 97116; 97162; 97166; 97530; 97535; 99251; 99285; J7030; J7050; P9612; A4216; G0463; J0744; J2405

== ENCOUNTER 2019-07-27 07:58 | Day surgery (SDC) | payer MEDICARE, SELFPAY ==
[2019-07-02 09:57] VITALS: BMI 23.0
[2019-07-27] VITALS (7 sets, daily range): BP systolic 148–171; BP diastolic 42–83; PULSE 63–72; RESP 16; TEMP 36.2; O2SAT 95–100; BMI 23.1
--- NOTE | 2019-07-27 | IMM_PTH ---
PATIENT: DELFINA AVILA LOC: EN U#:[id number] AGE/SX: 84/F ROOM: RE07/27/[address]: Dr. Luis Farfan MD : 1935 BED: DIS: 07/27/2019 SPEC #: [id number] RECD: 07/31/19 11:20 STATUS: RADHA REQ #: [id number] LAWANDA: 07/27/19 00:[address]: Luis Farfan DEPT: IMMUNOHISTOCHEMISTRY RECD BY: Emerald Shay ENTERED: 07/31/19 11:21 SP TYPE: IMMUNO OTHR DR: Dr. Bill Castaneda MD Tissues: C - Rectum, NOS Procedures: Synapto (add) SMA (add) Cesar Ret (add) CD34 (add) CD56 (add) CHROMO (add) DESMIN (add) Vimentin (add) SMM (add) FACTOR VIII (add) NEUROFIL (add) Pankeratin (initial) NSE (add) S-100 (add) PHYSICIAN & INSTITUTION [address] [address] SPECIMEN INFORMATION: Tissue Source: C - Rectal polyp Clinical Info: Colitis Specimen Number: [id number] CPT code: 89148, 11973 x13 METHODOLOGY: Deparaffinized sections of prefer/formalin-fixed tissue or PAP/DQ stained slides are incubated with monoclonal/polyclonal antibodies/oligonucleotide probes. Localization is made via biotin free immunoperoxidase method. Appropriate controls are performed and reacted as expected. Results on target cell population are indicated in the following table: RESULTS: ANTIBODY / CLONE RESULT Block C AE1-3 (AE1/AE3/PCK26) negative Vimentin (V9) positive Actin (1A4) negative Myosin (simms1) negative Desmin (CE-R-11) negative S-100 (4C4.9) positive, dim Neurofil (2F11) negative CD56 (123C3.D5) positive, focal Chromo (LK2H10) negative Synapto (polyclonal) negative NSE Neuron Specific Enolase negative CD34 (QBEnd-10) positive Factor VIII (R Ag) negative CALRET (polyclonal) negative These tests were developed and their performance characteristics determined by [facility]. They may not have been cleared or approved by the U.S. Food and Drug Administration. The FDA has determined that such clearance or approval is not necessary. The above immunohistochemical/dualISH markers are ordered and reviewed by the Pathologist. INTERPRETATION: Rectal polyp, biopsy: Consistent with neurofibroma. AM:shana 08/01/19 Case has been reviewed in consultation with Dr. Bermudez who concurs with the above diagnosis. IDC:ALIVIA
[2019-07-27] MEDS: Lactated Ringers 1,000 ML 100 ML IV (09:00)
[2019-07-27 09:11] LABS: Bedside Glucose 108 mg/dL (70-110)
--- NOTE | 2019-07-27 09:12 | HP.PCM_ITS ---
History of Present Illness Date of Admission: 07/27/19 The patient is a 84 year old F was recently admitted to the hospital for unknown etiology colitis. The patient is doing better and is here for follow-up colonoscopy Past Medical/Surgical History - Planned Operation Planned Operative Procedure/s: cscope Date of Operative Procedure: 07/27/19 Permit Signed: No S.O.S: No Is This Patient Having a Total Joint: No - Previous Hospitalizations/Surgeries HX Hospitalizations: No HX of Surgeries: lumbar fusion, cholecystectomy, dialation and curretage, pelvis fx, L heart cath, R hip replacement, tonsillectomy,left thr. cscope. left ankle orif. nasal fx Any Problems With Anesthesia: Yes - vomiting,nausea/ You/Your Family Experience Fever (Hyperthermia) With Anes: No Cholinesterase deficiency: No - Cardiovascular Hx Chest Pain within Last 2 months: No Hx of Irregular Heartbeat and/or Afib: Yes - takosubto syndrome/follows with [facility]/last visit 06/2019 Hx Heart Attack: Yes - . Hx Congestive Heart Failure: No Hx Rheumatic Fever: No Hx Hypertension: Yes - controlled with meds Hx Internal Defibrillator: No Hx Pacemaker: No Hx Cardiac Catheterization: Yes - over 5 yrs ago What facility was last heart cath performed: [facility] Date of last Heart Cath: over 5 yrs ago Hx Cardiac Surgery/Stents/Etc.: No Hx Stress Test: Yes - over 5 yrs ago[facility] HX Edema: Yes - lower legs prn Hx Pain in Legs when Walking/Leg Cramps: Yes - chronic pain - Respiratory Chronic Cough: No HX of Shortness of Breath: No - unable to walk stairs/denies sob with exertion Hoarseness: No Hx Chronic Obstructive Pulmonary Disease (COPD): No Hx Asthma: Yes - no inhaler Hx Emphysema: No Hx Sleep Apnea: No CPAP: No BIPAP: No Hx Oxygen Use at Home: No Hx Respiratory Tract Infection/Cold (presently): No Do You Snore Loudly (louder than talking or can be heard): No Do You Often Feel Tired/ Fatigued/ Sleepy Dring Daytime?: No Has Anyone Observed You Stop Breathing During Sleep?: No Result (for STOP score): Negative Hx Smoking: No Smoking Status: Never smoker - Gastrointestinal Hx Gastroesophageal Reflux: No Controlled With Meds: No Hx Gastrointestinal Disorders: No Hx Gastrointestinal Bleed: No Hx Ulcer: No Hx Hiatal Hernia: No Difficulty Chewing/Swallowing: Yes - Difficulty swallowing dry foods. Recent Onset of Swallowing Problems: No Special diet followed at home: No Hx Unplanned Weight Loss of 20#: No HX Unplanned Weight Gain of 20#: No - Neurological Hx Seizures: No HX Syncope/Blackout Spells/Unconsciousness: No Hx CVA/Stroke: No Hx Transient Ischemic Attacks (TIA): No Hx Multiple Sclerosis: No Hx Parkinson's Disease: No Hx Head/Neck Injury: Yes Hx Headaches: No Hx Back Injury/Pain: Yes - lumbar fusion/chronic back pain Recent Onset of Speech Difficulty: No Restless Legs: No Does patient have nerve stimulator: No Patient instructed to have device shut off: No Rep notified?: No - Blood Disorder Hx Leukemia: No Bleeding Tendencies: No Hx Deep Vein Thrombosis: No Hx High Cholesterol: Yes - on med Blood Transmitted Disease: No Hx Hepatitis: No Hx Cirrhosis: No Hx Anemia: No Hx Blood Disorders: No - Reproduction Is Patient Lactating: No Hx Hysterectomy: No Hx Tubal Ligation: No Are You Post Menopause: Yes - Genitourinary Hx Renal Disease: No Hx Dialysis: No - Musculoskeletal Hx Arthritis: Yes Hx Rheumatoid Arthritis: No Hx Gout: No Recent Onset of an Orthopedic Problem: No - Endocrine Hx Diabetes: Yes - TYPE 2/diet controlled Insulin: No Thyroid Disease: Yes - on med Hx Steroid Therapy: No - Psycho/Social Hx Substance Use: No Hx Alcohol Use: No Hx Anxiety: No Hx Depression: No Mental Illness: No Hx Dementia: No - Miscellaneous Hx Cancer: No Recent Exposure to Contagious Disease: No Active MRSA: No Hx of C-Diff: No Any Loose Teeth: No Allergies amoxicillin Allergy (Verified 07/27/19 08:29) Unknown Anesthetics - Amide Type Allergy (Verified 07/27/19 08:29) Unknown Anesthetics - Lizzette Type- Parabens [Anesthetics - Lizzette Type] Allergy (Verified 07/27/19 08:29) Unknown Krdrchd-Wya-Evb Reductase Inhibitor Allergy (Verified 07/27/19 08:29) Unknown Paternal Family History: Family History (Last Reviewed 06/22/19 @ 10:[address] Pj Doll MD) Father Colon cancer Mother CHF (congestive heart failure) Brother Diabetes Sister CVA (cerebral vascular accident) Daughter Hypertension Daughter Thyroid disorder Diabetes, Heart Disease, Hypertension Maternal Family History: Family History (Last Reviewed 06/22/19 @ 10:[address] Pj Doll MD) Father Colon cancer Mother CHF (congestive heart failure) Brother Diabetes Sister CVA (cerebral vascular accident) Daughter Hypertension Daughter Thyroid disorder Diabetes, Heart Disease, Hypertension - Discharge Is Pt Admitted From a Shelter, or a Detention: No Who Could Help: family Special Equipment Used at Home: walker After D/C, Where Do you Plan to Go: Return Home - From the PAT History Number of Risk Factors: 4 - Physical Exam Vitals/I&O's: Vital Signs Pulse Resp BP Pulse Ox 63 16 171/83 H 95 07/27/19 08:32 07/27/19 08:32 07/27/19 08:32 07/27/19 08:32 Oxygen Delivery Method Room Air Weight: 134 lb 11.239 oz Body Mass Index (BMI) 23.1 Finger Stick Blood Glucose 227 General: Alert, Oriented x3 Lungs: Normal air movement Cardiovascular: Regular rate, Regular Rhythm Abdomen: Bowel Sounds Present, Soft, Non Tender, Non-Distended Microbiology Past 72 Hours 07/26/19 09:30 Mucosa - Nasopharyngeal Coronavirus COVID-19 PCR - Final Laboratory Results 07/26/19 09:30: COVID-19 ([facility]NA) Cancelled 07/27/19 08:58: POC Glucose 108 Current Medications Lactated Ringer's () 1,000 mls @ 100 mls/hr IV .Q10H [place] Last Admin: 07/27/19 09:00 Dose: 100 mls/hr Documented by: Assessment/Plan All Active Problems (Last Reviewed 06/22/19 @ 10:[address] Pj Doll MD) Other chest pain (Resolved) 84-year-old female with history of colitis 1. I recommend colonoscopy to rule out malignancy. Since last colonoscopy was over 3 years ago. She recently had colitis of unknown etiology. Currently her symptoms have resolved. 2. I explained endoscopy in detail to the patient. I explained the risks including but not limited to stroke or heart attack with anesthesia, perforation of the GI tract, bleeding, infection. I explained that any of these could necessitate further emergency surgery. The patient understands and all questions were answered sufficiently. The patient wishes to proceed with procedure. 3. We discussed the current risks associated with COVID-19. While it is understood that there is a community spread of COVID-19, the risk of jeovany COVID-19 while at [facility] ([facility]) is very low; however, the risk cannot be completely mitigated because of the community spread of the disease. We discussed in detail the risk of exposure to and/or potential harm posed by the COVID-19 virus with having a surgery/procedure at this time versus the risk of delaying the surgery/procedure. It is not possible to know either the risk of delaying the surgery or procedure or chance of getting an infection with perfect accuracy, but a joint decision was made to proceed at this time with the scheduled surgery/procedure as indicated on the consent form. Patient was notified that we will need to comply with any screening or testing [facility] wishes to perform or that surgery may be delayed for any positive results. Luis Farfan MD Pager: [facility] [address] [place] [address] [address] [place] [address] Office: Surgery Risks - Colonoscopy Risks Include but are not Limited To: Risks include but are not limited to: Bleeding, perforation requiring further surgery, inability to complete colonoscopy requiring barium enema.
--- NOTE | 2019-07-27 09:15 | COLBX_PTH ---
PATIENT: DELFINA AVILA LOC: EN U#:[id number] AGE/SX: 84/F ROOM: RE07/27/[address]: Dr. Luis Farfan MD : 1935 BED: DIS: 07/27/2019 SPEC #: [id number] RECD: 07/27/19 12:21 STATUS: RADHA REWagner #: [id number] LAWANDA: 07/27/19 09:[address]: Luis Farfan DEPT: SURGICAL PATHOLOGY RECD BY: Jordan Mcmanus ENTERED: 07/30/19 11:34 SP TYPE: COLON BX OTHR DR: Dr. Bill Castaneda MD Tissues: A - Descending colon B - Sigmoid colon biopsy C - Rectum, NOS Procedures: Surgery Specimen Level IV HEADER OPERATION: Colonoscopy ([facility]) PRE-OP DIAGNOSIS: Colitis TISSUE SUBMITTED: A - Descending colon polyp, B - Sigmoid colon polyp, C - Rectal polyp MICROSCOPIC DIAGNOSIS A. Descending colon polyp, biopsy: Tubular adenoma. B. Sigmoid colon polyp, biopsy: Tubular adenoma. C. Rectal polyp, biopsy: Consistent with benign polypoid neurofibroma. See comment. AM:shana 07/31/19 COMMENT C. Immunohistochemistry ([id number]) supports the above diagnosis. Case has been reviewed in consultation with Dr. Bermudez who concurs with the above diagnosis. IDC:ALIVIA MICROSCOPIC DESCRIPTION Slides are reviewed. GROSS DESCRIPTION A - Received in fixative is one container labeled with the patient's name and designated descending colon polyp. The specimen consists of one irregular fragment of light frias soft tissue that measures 0.5 x 0.3 x 0.2 cm. The specimen is totally submitted in one cassette. B - Received in fixative is one container labeled with the patient's name and designated sigmoid colon polyp. The specimen consists of one irregular fragment of light frias soft tissue that measures 0.3 x 0.2 x 0.2 cm. The specimen is totally submitted in one cassette. C - Received in fixative is one container labeled with the patient's name and designated rectal polyp. The specimen consists of one irregular fragment of light frias soft tissue that measures 0.5 x 0.5 x 0.2 cm. The specimen is totally submitted in one cassette. / ALIVIA:shana 07/30/19 TC:5 CPT: 91135 x3
--- NOTE | 2019-07-27 10:03 | OP.COLON_ITS ---
Patient Name: Susan Fulton Procedure Date: 07/27/2019 9:22 AM Date of : 1935 Age: 84 Procedure: Colonoscopy Indications: Colitis Providers: Luis Farfan MD Referring MD: Bill Castaneda Medicines: Monitored Anesthesia Care Patient Profile: This is an 84 year old female. Refer to note in patient chart for documentation of history and physical. Last Colonoscopy: more than 3 years ago. Complications: No immediate complications. Estimated blood loss: Minimal. Procedure: Pre-Anesthesia Assessment: - Prior to the procedure, a History and Physical was performed, and patient medications and allergies were reviewed. The patient's tolerance of previous anesthesia was also reviewed. The risks and benefits of the procedure and the sedation options and risks were discussed with the patient. All questions were answered, and informed consent was obtained. Prior Anticoagulants: The patient has taken no previous anticoagulant or antiplatelet agents. After reviewing the risks and benefits, the patient was deemed in satisfactory condition to undergo the procedure. After I obtained informed consent, the scope was passed under direct vision. Throughout the procedure, the patient's blood pressure, pulse, and oxygen saturations were monitored continuously. The Colonoscope was introduced through the anus and advanced to the cecum, identified by appendiceal orifice and ileocecal valve. The colonoscopy was performed without difficulty. The patient tolerated the procedure well. The quality of the bowel preparation was good. Scope In: 9:32:32 AM Scope Withdrawal Time 0 hours 8 minutes 42 seconds Scope Out: 9:56:28 AM Total Procedure Duration Time 0 hours 23 minutes 56 seconds Findings: Three pedunculated polyps were found in the rectum, sigmoid colon and descending colon. These polyps were removed with a hot snare. Resection and retrieval were complete. The exam was otherwise without abnormality on direct and retroflexion views. Multiple small-mouthed diverticula were found in the sigmoid colon. Impression: - Three polyps in the rectum, in the sigmoid colon and in the descending colon, removed with a hot snare. Resected and retrieved. - The examination was otherwise normal on direct and retroflexion views. - Diverticulosis in the sigmoid colon. Recommendation: - Discharge patient to home. - Resume previous diet. - Continue present medications. - Await pathology results. - Repeat colonoscopy for surveillance based on pathology results. Procedure Code(s): --- Professional --- 81656, Colonoscopy, flexible; with removal of tumor(s), polyp(s), or other lesion(s) by snare technique Diagnosis Code(s): --- Professional --- K62.1, Rectal polyp D12.5, Benign neoplasm of sigmoid colon D12.4, Benign neoplasm of descending colon K52.9, Noninfective gastroenteritis and colitis, unspecified K57.30, Diverticulosis of large intestine without perforation or abscess without bleeding CPT copyright 2017 [employer]. All rights reserved. The codes documented in this report are preliminary and upon sheet pile driver operator review may be revised to meet current compliance requirements. Luis Farfan MD 07/27/2019 10:03:18 AM This report has been signed electronically. Number of Addenda: 0 Note Initiated On: 07/27/2019 9:22 AM
--- NOTE | 2019-07-27 10:03 | OP.CCLET_ITS ---
07/27/2019 Bill Castaneda Re : Colonoscopy procedure for Susan Fulton Dear Leonel This procedure was performed on Saturday, July 27, 2019. My impressions and recommendations are as follows: Impressions : - Three polyps in the rectum, in the sigmoid colon and in the descending colon, removed with a hot snare. Resected and retrieved. - The examination was otherwise normal on direct and retroflexion views. - Diverticulosis in the sigmoid colon. Recommendations : - Discharge patient to home. - Resume previous diet. - Continue present medications. - Await pathology results. - Repeat colonoscopy for surveillance based on pathology results. My findings are described in the full procedure note, which is enclosed. If I can be of further assistance, please feel free to contact me at Doctor phone number(s): , Work: . Sincerely, Luis Farfan MD 07/27/2019 10:03:18 AM This report has been signed electronically.
== END 2019-07-27 11:26 | disposition home or self-care (01) ==
LOC: EN 07:58 → AC 07:59
PROVIDERS: PCP Family Medicine; Referring Provider Family Medicine; Visit Provider Surgery
PROC: 0DJD8ZZ Inspection of Lower Intestinal Tract, Via Natural or Artificial Opening Endoscopic (ICD-10-PCS; CPT 45378; principal; 2019-07-27 09:10)
DX: K62.1 Rectal polyp (principal); D12.5 Benign neoplasm of sigmoid colon; D12.4 Benign neoplasm of descending colon; K52.9 Noninfective gastroenteritis and colitis, unspecified; K57.30 Diverticulosis of large intestine without perforation or abscess without bleeding; I51.81 Takotsubo syndrome; I10 Essential (primary) hypertension; G89.29 Other chronic pain; M54.5 Low back pain; M79.662 Pain in left lower leg; M79.661 Pain in right lower leg; J45.909 Unspecified asthma, uncomplicated; E78.00 Pure hypercholesterolemia, unspecified; E11.9 Type 2 diabetes mellitus without complications; I25.2 Old myocardial infarction; Z98.1 Arthrodesis status; Z79.899 Other long term (current) drug therapy; Z11.59 Encounter for screening for other viral diseases
CPT/HCPCS: 45385; 82962; 87635; 88305; 88341; 88342; G2023; J7120; J2405; U0002

== ENCOUNTER 2019-09-24 02:26 | Observation (INO) | payer MEDICARE, SELFPAY ==
[2019-07-27 08:32] VITALS: BMI 23.1
[2019-09-24] VITALS (14 sets, daily range): BP systolic 149–215; BP diastolic 66–118; PULSE 62–77; RESP 13–18; TEMP 36.4–36.9; O2SAT 94–100; BMI 25.0; BMI 22.8
--- NOTE | 2019-09-24 02:39 | EKG12_ITS ---
Test Reason : HYPERTENSION Blood Pressure : / mmHG Vent. Rate : 069 BPM Atrial Rate : 069 BPM P-R Int : 182 ms QRS Dur : 088 ms QT Int : 410 ms P-R-T Axes : 056 -01 054 degrees QTc Int : 439 ms Normal sinus rhythm Normal ECG Confirmed by TALIA QUEEN, CLARISSE ([id number]), editor magazine MONA KEARNEY ([id number]) on 09/26/2019 1:08:39 PM Referred By: SEAN Confirmed By:CLARISSE MELGAR MD
--- NOTE | 2019-09-24 02:39 | CT_ITS ---
STUDY: CT BRAIN WITHOUT CONTRAST REASON FOR EXAM: Female, 84 years old. DIZZINESS X 2 WEEKS, PALPITATIONS, HTN, RECENT FALLS RADIATION DOSAGE (If Supplied By Facility): CTDIvol = ( 44.99 ) mGy, DLP = ( 779.24 ) mGycm TECHNIQUE: Transaxial CT imaging of the brain was performed without administration of intravenous contrast material. Individualized dose optimization techniques were used for this CT. COMPARISON: No relevant priors. FINDINGS: Normal soft tissue structures. There is hyperostosis frontalis internus. There is enlargement of the extra-axial space in the anterior inferior left middle cranial fossa, which is likely to be due to an arachnoid cyst. This measures approximately 2.2 x 2.7 x 4.3 cm. There is no significant mass effect on the adjacent brain. There is mild cerebral atrophy with widening of the extra-axial spaces and ventricular dilatation. There are areas of decreased attenuation within the white matter tracts of the supratentorial brain, consistent with microvascular disease changes. Normal basal ganglia and thalami. Normal brainstem. There is mild cerebellar atrophy. There is mild atherosclerotic calcification of the basilar and cavernous carotid arteries. There is CSF expansion of the sella turcica with thin rim of pituitary tissue, consistent with partial empty sella syndrome. There is no intracranial hemorrhage. There are no findings of an acute ischemic infarction. Normal visualized paranasal sinuses. CT/Brain/Head without Contrast IMPRESSION: Chronic involutional changes of the brain. Partial empty sella syndrome. 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 Would suggest follow-up MRI in 6 months to assess stability. No demonstrated acute intracranial process. Electronically Signed: Maciej Guerrero MD at 3:57 EDT , Service support ,
--- NOTE | 2019-09-24 02:49 | ED.DCSUM_ITS ---
History of Present Illness Chief Complaint: Hypertension Narrative: Patient presenting to the emergency department due to I was worried I was having a stroke or heart attack. Patient tells me that since September 14 she has been dealing with dizziness. She did describe this as a vertiginous type feeling. She tells me that initially it was only on the right side and now it is on both sides. Patient states that this is typically worse with change in position. She reports that she has been having bilateral leg weakness, nothing lateralizing. She denies any visual changes or speech difficulty. Patient states that tonight she was having some feelings of palpitations. She denies any chest pain. She tells me she was concerned that she was having a stroke because she had a family member who had a stroke, so she called EMS. Patient does have a history of cardiovascular disease. Patient also informs me that she has had 2 falls recently, once on 14 September and once on 16 September. Review of systems otherwise negative. Past Medical History - Allergies and Home Meds Allergies/Adverse Reactions: Allergies amoxicillin Allergy (Verified 07/27/19 08:29) Unknown Anesthetics - Amide Type Allergy (Verified 07/27/19 08:29) Unknown Anesthetics - Lizzette Type- Parabens [Anesthetics - Lizzette Type] Allergy (Verified 07/27/19 08:29) Unknown Uzwfhfp-Vzt-Kqb Reductase Inhibitor Allergy (Verified 07/27/19 08:29) Unknown Primary Care Physician: Bill Castaneda MD [Primary Care Provider] - Prior records reviewed: Yes Past Medical History: - - Hypertension, hyperlipidemia, palpitations, diabetes Surgical History: cholecystectomy, total hip arthroplasty - Right., tonsillectomy, - - Nasal fracture, fracture of pelvis with plates, ORIF left hip, recent back surgery. Lives: Alone Smoking Status: Never smoker Alcohol: None Drugs: None - Family History Paternal Family History: Family History (Last Reviewed 06/22/19 @ 10:[address] Pj Doll MD) Father Colon cancer Mother CHF (congestive heart failure) Brother Diabetes Sister CVA (cerebral vascular accident) Daughter Hypertension Daughter Thyroid disorder Family History: Reports: Diabetes, Heart Disease, Hypertension Maternal Family History: Family History (Last Reviewed 06/22/19 @ 10:[address] Pj Doll MD) Father Colon cancer Mother CHF (congestive heart failure) Brother Diabetes Sister CVA (cerebral vascular accident) Daughter Hypertension Daughter Thyroid disorder Family History: Reports: Diabetes, Heart Disease, Hypertension Review of Systems General: Reports: - - Dizziness Eyes: Denies: Visual changes - bilaterally, Diplopia ENT: Denies: Rhinorrhea, Sore throat Cardiovascular: Reports: Palpitations Respiratory: Denies: Dyspnea, Cough, Dyspnea on exertion Gastrointestinal: Denies: Abdominal pain, Nausea, Vomiting, Diarrhea, Melena, Hematochezia Genitourinary: Denies: Dysuria, Hematuria, Frequency Musculoskeletal: Reports: Back pain Skin: Denies: Rash, Wounds Neurological: Denies: Headache, Weakness, Numbness Physical Exam Vital Signs/Narrative: Vital Signs Temp Pulse Resp BP Pulse Ox 09/24/19 02:40 77 16 215/118 H 09/24/19 02:28 97.5 F L 72 16 215/118 H 98 Inital Vital Signs reviewed: Yes General: Well nourished, Well developed, No Acute Distress, - - Elderly female no acute distress Head: Normocephalic, Atraumatic Eyes: Perrl, EOMI ENT: Moist mucous membranes Neck: - - JVD is noted Cardiovascular: Regular rate, Regular rhythm, S3 Respiratory: No distress, CTA bilaterally, Chest nontender Abdomen: Soft, Nontender, Nondistended, Normal bowel sounds Extremities: Nontender, No edema Skin: Normal color, No rash Neurological: Alert, Oriented x3, - - NIH stroke scale is 0. Patient has normal ahyuye-yo-rxwa testing, but states that it makes her feel dizzy when she does it and does not have any reproducible nystagmus with this. Psychological: Normal affect, Normal Mood Diagnostic/Tx/Re-eval Clinical Impression(s) from Imaging Studies Brain CT 09/24/19 02:39 IMPRESSION: Chronic involutional changes of the brain. Partial empty sella syndrome. 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 Would suggest follow-up MRI in 6 months to assess stability. No demonstrated acute intracranial process. Electronically Signed: Maciej Guerrero MD at 3:57 EDT , Service support , Chest X-Ray 09/24/19 03:05 IMPRESSION: No evidence for acute cardiopulmonary pathology. Electronically Signed: Maciej Guerrero MD at 3:48 EDT , Service support , Laboratory Data 09/24/19 09/24/19 09/24/19 02:50 02:50 02:50 WBC 5.2 RBC 4.70 Hgb 13.5 Hct 42.4 MCV 90.2 MCH 28.7 MCHC 31.8 L RDW Std Deviation 41.1 RDW Coeff of Jay Jay 12.6 Plt Count 295 MPV 8.8 Immature Gran % (Auto) 0.200 Neut % (Auto) 60.0 Lymph % (Auto) 28.8 Wilson % (Auto) 8.7 Eos % (Auto) 1.7 Baso % (Auto) 0.6 Absolute Neuts (auto) 3.1 Absolute Lymphs (auto) 1.49 Nucleated RBC % 0 PT 12.4 INR 1.0 APTT 26.6 Sodium 142 Potassium 3.6 Chloride 105 Carbon Dioxide 30.0 Anion Gap 7 BUN 20 H Creatinine 0.48 L Estim Creat Clear Calc 37.45 Est GFR (MDRD) Af Amer 161 Est GFR (MDRD) Non-Af 133 BUN/Creatinine Ratio 42.1 H Glucose 157 H Calcium 9.6 Troponin I < 0.015 - EKG Initial EKG Interpretation: - - Sinus rhythm of [address] segments normal T waves normal VT and QTc intervals no evidence of acute ischemia or arrhythmia. No significant changes from April of this year. - Medical Decision Making Patient presented secondary to non-reproducible vertigo with frequent falls. She was hypertensive was given labetalol blood pressure improved down to 180/86. EKG unremarkable. CMT imaging of the brain was negative for acute process according to radiology. Chest x-ray by my personal review as well as radiology negative for acute process. Lab work including CBC chemistry coags and troponin are negative. I believe the patient requires admission for rule out posterior circulation stroke. Patient will be admitted to the PCU under hospitalist. ED Disposition - Plan for ED Patient: Disposition: Acute Care Hospital [facility] Diagnosis: Vertigo, Hypertension Referrals: Bill Castaneda MD [Primary Care Provider] -
[2019-09-24] MEDS: Labetalol 20 MG/4 ML Vial IV (02:52)
[2019-09-24 02:56] LABS: Absolute Lymphocyte Count 1.49 X10^3/uL (0.83-4.51); Absolute Neutrophil Count 3.1 X10^3/uL (2.0-7.7); Basophil# 0.03 X10^3/uL; Basophil% 0.6 % (0-1); Eosinophil# 0.09 X10^3/uL; Eosinophils% 1.7 % (0-5); Hematocrit 42.4 % (37-47); Hemoglobin 13.5 g/dL (12.0-15.0); Lymphocyte # 1.49 X10^3/ul (4.0); Lymphocyte % 28.8 % (19-41); Mean Corp Hgb Conc 31.8 g/dL (32-36); Mean Corpuscular Hgb 28.7 pg (27.0-32.0); Mean Corpuscular Volume 90.2 fL (81-99); Mean Platelet Vol. 8.8 fl (6.2-12.0); Monocyte# 0.45 X10^3/uL; Monocyte% 8.7 % (0-10); NRBC Flagged by Analyzer 0 % (0-5); Platelet Count 295 K/mm3 (150-450); RBC Distribution Width CV 12.6 % (11.6-14.6); RBC Distribution Width SD 41.1 fl (35.1-43.9); White Blood Count 5.2 K/mm3 (4.4-11.0)
[2019-09-24 03:02] LABS: Prothrombin Time (Protime)PT. 12.4 SECONDS (11.7-14.9)
[2019-09-24 03:03] LABS: Partial Thromboplast Time 26.6 Seconds (24.1-36.2)
--- NOTE | 2019-09-24 03:05 | RAD_ITS ---
STUDY: X-RAY CHEST REASON FOR EXAM: Female, 84 years old. DIZZY X 2 WEEKS, PALPITATIONS, HTN. TECHNIQUE: Single AP portable view of the chest. COMPARISON: 05/08/2019. FINDINGS: The lungs are clear and expanded. There is no demonstrated pleural abnormality. Normal size heart. Normal mediastinum and adele. Normal visualized pulmonary arteries. Normal visualized aortic arch and descending thoracic aorta. There are multilevel degenerative changes of the visualized thoracic spine. . There is no demonstrated abnormality of the visualized soft tissue structures of the upper abdomen. RAD/Chest 1 View IMPRESSION: No evidence for acute cardiopulmonary pathology. Electronically Signed: Maciej Guerrero MD at 3:48 EDT , Service support ,
[2019-09-24 03:23] LABS: Anion Gap 7 (5-15); BUN 20 mg/dL (7-18); BUN/Creat Ratio 42.1 RATIO (10-20); Calcium,Total 9.6 mg/dL (8.5-10.1); Chloride 105 mmol/L (98-107); Creatinine, Serum 0.48 mg/dL (0.55-1.02); EST Glomerular Filtration Rate 133 mL/min (>60); Est Glom Filt Rate - Afr Amer 161 mL/min (>60); Estimated Creatinine Clearance 37.45 ml/min; Glucose 157 mg/dL (74-106); Potassium 3.6 mmol/L (3.5-5.1); Sodium Level 142 mmol/L (136-145)
--- NOTE | 2019-09-24 04:39 | HP.PCM_ITS ---
History of Present Illness Date of Admission: 09/24/19 Chief Complaint: Dizziness?almost 2 weeks, recurrent falls- last 1 and half weeks The patient is a 84 year old F with past medical history of hypertension, type II DM, diet controlled, history of chronic back pain, previous history of Takotsubo cardiomyopathy who comes in with complaints of dizziness and recurrent falls over the last 1 and half to 2 weeks. Patient lives alone. Her son lives close by. She ambulates with a walker. She has been having dizziness that comes on and off. She describes it as a room spinning associated with a loss of balance. Dizziness became worse over the last 1 and half weeks, especially after 14 September. She fell on 14 September when she lost her balance and landed on her back. Dizziness is worse when she gets up from sitting. It is also severe when she moves her head. She denies any tinnitus. She has some hearing loss. She admits to some palpitation with heart fluttering. Denies any chest pain. Her NIHSS score in the ED was 0. Vitals in the ED showed temperature was 97.5F, blood pressure 215/118, respiratory 16, SPO2 was 98% on room air. BC count is 5.2, hemoglobin 13.5, platelet count 295, INR 1.0, CMP unremarkable. Troponins were negative. EKG shows normal sinus rhythm, no acute ST changes. CT of the head showed chronic involuntary changes of the brain, partial empty sella syndrome, arachnoid cyst in the left middle cranial fossa without clinical significant mass-effect. Chest x-ray shows no acute abnormalities. Past Medical History Past Medical History (Chronic Problems): Chronic Problems (Last Reviewed 06/22/19 @ 10:[address] Pj Doll MD) Hypertension (Chronic) Essential (primary) hypertension (Chronic) HLD (hyperlipidemia) (Chronic) Palpitations (Chronic) Osteoarthritis (Chronic) Controlled diabetes mellitus with peripheral circulatory disorder (Chronic) Medical History: Medical History (Last Reviewed 06/22/19 @ 10:[address] 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 Other chest pain (Resolved) R07.89 Takotsubo cardiomyopathy I51.81 Allergies amoxicillin Allergy (Verified 07/27/19 08:29) Unknown Anesthetics - Amide Type Allergy (Verified 07/27/19 08:29) Unknown Anesthetics - Lizzette Type- Parabens [Anesthetics - Lizzette Type] Allergy (Verified 07/27/19 08:29) Unknown Ljdqzlk-Ugz-Szc Reductase Inhibitor Allergy (Verified 07/27/19 08:29) Unknown Home Medications: Ambulatory Orders Medication Instructions Recorded Cholecalciferol (Vitamin D3) 1,000 unit PO DAILY 10/17/13 [Vitamin D3] ezetimibe 10 mg tablet 10 mg PO DAILY 12/15/17 acetaminophen 500 mg tablet 500 mg PO BID tab 06/19/18 Levothyroxine [Synthroid] 112 mcg PO DAILY@0600 05/08/19 Lisinopril 40 mg PO DAILY 05/08/19 Teriparatide [Forteo] 20 mcg SUBCUT DAILY 05/08/19 Tramadol HCl [Ultram] 50 mg PO BID 05/08/19 amlodipine 2.5 mg tablet 2.5 mg PO DAILY #90 tab 06/22/19 carvedilol 25 mg tablet 25 mg PO BID #180 tab 09/05/19 Cyanocobalamin (Vitamin B-12) 500 mcg PO DAILY 09/24/19 [Vitamin B-12] Hydrochlorothiazide [Hctz] 12.5 mg PO DAILY 09/24/19 Surgical History: Surgical History (Last Reviewed 06/22/19 @ 10:[address] Pj Doll MD) History of back surgery Onset Date: ~2016 Z98.0 History of cholecystectomy Onset Date: ~2005 Z98.890, Z90.49 History of dilation and curettage Onset Date: ~1994 Z98.890 History of fractured pelvis Onset Date: ~2013 Z87.81 History of left heart catheterization (LHC) Onset Date: 03/2010 Z98.890 04/2000, 03/2010. History of right hip replacement Onset Date: ~2016 Z96.641 History of tonsillectomy Z98.890, Z90.89 Surgical History: cholecystectomy, total hip arthroplasty - Right., tonsillectomy, - - Nasal fracture, fracture of pelvis with plates, ORIF left hip, recent back surgery. 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 Pj Doll MD) Father Colon cancer Mother CHF (congestive heart failure) Brother Diabetes Sister CVA (cerebral vascular accident) Daughter Hypertension Daughter Thyroid disorder History Items: Diabetes, Heart Disease, Hypertension Maternal Family History: Family History (Last Reviewed 06/22/19 @ 10:[address] Pj Doll MD) Father Colon cancer Mother CHF (congestive heart failure) Brother Diabetes Sister CVA (cerebral vascular accident) Daughter Hypertension Daughter Thyroid disorder History Items: Diabetes, Heart Disease, Hypertension Review of Systems Constitutional: Denies: Anorexia, Chills, Fever, Malaise, Weakness, Weight Martinez e, Fatigue Eyes: Denies: Blurred vision, Cataracts, Conjunctivae Inflammation HEENT: Denies: Head Aches, Hearing Changes, Sinus Congestion, Sinus Drainage Cardiovascular: Reports: Light Headedness. Denies: Chest Pain, Claudication, Chest Pressure, Chest Tightness, Edema, Orthopnea, Palpitations, Paroxysmal Noc. Dyspnea, Syncope Respiratory: Denies: Cough, Hemoptysis, Pleuritic Pain, Shortness of breath at rest, Shortness of breath upon exertion, Sputum production Gastrointestinal: Denies: Abdominal Pain, Constipation, Hematemesis, Hematochezia, Nausea, Vomiting Genitourinary: Denies: Dysuria, Frequency, Incontinence Musculoskeletal: Denies: Joint Pain, Joint stiffness, Joint swelling, Joint Tenderness Skin: Denies: Rash, Wounds Neurological: Denies: Numbness, Tingling, Focal weakness Psychiatric: Denies: Anxiety, Depression, Homicidal Ideations, Suicidal Ideations Hematologic/ Lymphatic: Denies: Easy Bruising, Easy Bleeding VTE Information - Inpt Only VTE Present on Admission: No VTE Pharm Prophylaxis ordered?: Yes Patient Problems: Active and Suspected Problems (Last Reviewed 06/22/19 @ 10:[address] Pj Doll MD) Vertigo (Acute) - Physical Exam Vitals/I&O's: Vital Signs Temp Pulse Resp BP Pulse Ox 97.5 F L 67 14 180/86 H 98 09/24/19 02:28 09/24/19 03:25 09/24/19 03:25 09/24/19 03:25 09/24/19 03:25 Oxygen Delivery Method Room Air Weight: 66 kg Body Mass Index (BMI) 25.0 Finger Stick Blood Glucose 227 General: Alert, Oriented x3, Cooperative, No apparent distress HEENT: Atraumatic, PERRLA, EOMI, Normocephalic Oral: Moist Mucosa Neck: Supple Lungs: Clear to auscultation, Normal air movement Cardiovascular: Regular rate, Regular Rhythm, Normal S1, Normal S2, No murmurs Abdomen: Bowel Sounds Present, Soft, Non Tender, Non-Distended Extremities: No edema Skin: No rashes, No breakdown Musculoskeletal: No Tenderness to Palpation of Joints or Extremities Lymphatic: No Cervical, Supraclavicular, or Inguinal Adenopathy Neurological: Cranial nerves II-XII grossly intact, - - no nystagmus seen, power is 4/5 in both upper extremities, power in lower extremities is 3/5, limited by pain, fingr to nose testing is abnormal in left upper extremity, unable to do heel to mena testing. Psych/Mental Status: Normal Affect, Appropriate Laboratory Results 09/24/19 02:50: WBC 5.2, RBC 4.70, Hgb 13.5, Hct 42.4, MCV 90.2, MCH 28.7, MCHC 31.8 L, RDW Std Deviation 41.1, RDW Coeff of Jay Jay 12.6, Plt Count 295, MPV 8.8, Immature Gran % (Auto) 0.200, Neut % (Auto) 60.0, Lymph % (Auto) 28.8, Burnet % (Auto) 8.7, Eos % (Auto) 1.7, Baso % (Auto) 0.6, Absolute Neuts (auto) 3.1, Absolute Lymphs (auto) 1.49, Nucleated RBC % 0 09/24/19 02:50: PT 12.4, INR 1.0, APTT 26.6 09/24/19 02:50: Sodium 142, Potassium 3.6, Chloride 105, Carbon Dioxide 30.0, Anion Gap 7, BUN 20 H, Creatinine 0.48 L, Estim Creat Clear Calc 37.45, Est GFR (MDRD) Af Amer 161, Est GFR (MDRD) Non-Af 133, BUN/Creatinine Ratio 42.1 H, Glucose 157 H, Calcium 9.6, Troponin I < 0.015 Current Medications Labetalol HCl (Trandate) 20 mg IV X1 PRN PRN Reason: BLOOD PRESSURE Last Admin: 09/24/19 02:52 Dose: 20 mg Documented by: Assessment/Plan All Active Problems (Last Reviewed 06/22/19 @ 10:[address] Pj Doll MD) Vertigo (Acute) Other chest pain (Resolved) 84 year old F with past medical history of hypertension, type II DM, diet controlled, history of chronic back pain, previous history of Takotsubo cardiomyopathy who comes in with complaints of dizziness and recurrent falls over the last 1 1/2 to 2 weeks. 1. Dizziness, loss of balance concerning for possible stroke. NIHSS 0, initial CT scan of head showed chronic changes, partial empty sella syndrome Cerebellar signs on exam. Will admit to PCU, stroke workup, MRI brain, MRA head, carotid ultrasound, 2d- ECHO HgbA1c, lipid profile, TSH, folate levels, vitamin B12 levels PT/OT/ST to evaluate and treat Consider Teleneurology consult after imaging 2. Hypertension, uncontrolled, will allow for permissive hypertension pending evaluation 3. Hyperlipidemia, continue on statin, lipid profile in am 4. Type 2 DM, diet controlled, will check HgbA1c Continue with ISS with blood glucose checks. 5. Acute back pain, s/p falls within 2 weeks, Patient has chronic back pain, h/o surgeries, also has osteoporosis Will get pelvic X-rays, lumbar spine X-rays, check Vitamin D levels PT/OT to evaluate 6. DVT PPx- Lovenox SC OBSV E&M: [id number] Initial observation care L3
--- NOTE | 2019-09-24 05:23 | MRI_ITS ---
STUDY: MRI BRAIN WITHOUT CONTRAST REASON FOR EXAM: Female, 84 years old. neuro deficit, dizziness, recurrent falls TECHNIQUE: Standardized multiplanar fat and water weighted pulse sequences were obtained. COMPARISON: CT 09/24/2019 FINDINGS: Normal size of the ventricles and extra-axial spaces for the patient''s age. Normal white matter tracts of the supratentorial brain. There is no evidence for recent intracranial ischemia or other cause of cytotoxic edema on diffusion weighted imaging (DWI). Normal T2* images of the brain without demonstrated susceptibility artifact. There is no demonstrated hemosiderin stain. Normal bilateral basal ganglia. Normal thalami. 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 Normal flow voids within the major intracranial circulation suggesting patency by spin echo criteria. Normal sella turcica, pituitary gland, infundibular stalk, optic chiasm and hypothalamus. Normal tectal plate and pineal gland. Normal midbrain, mayra and medulla. Normal cerebellum. Normal basal cisterns. Normal bilateral temporal bones. Normal bilateral internal auditory canals. No demonstrated orbital abnormality, within the constraints of a routine brain study. Normal visualized paranasal sinuses. Normal calvarium and skull base. Normal visualized soft tissue structures. Normal visualized upper cervical spine. MRI/Brain without Contrast IMPRESSION: Normal unenhanced MRI of the brain. Electronically Signed: Sukhi Stokes MD at 8:42 EDT Tel , Service support ,
--- NOTE | 2019-09-24 05:23 | ECHOD_ITS ---
Reason For Study: TIA/CVA Procedure This was a 2D Doppler, Color Flow transthoracic echocardiogram. Technically difficult study, patient scanned supine due to dizziness. Exam performed portable in patient room. Left Ventricle Normal LV size. Left ventricular systolic function is normal. The estimated ejection fraction is 65 %. Stage 2 diastolic dysfunction. No regional wall motion abnormalities noted. Atria Normal left atrium. Normal right atrium. Mitral Valve Normal mitral valve. Tricuspid Valve Normal tricuspid valve. Aortic Valve Trisinus/trileaflet aortic valve. Mild focal aortic valve calcification. Pulmonic Valve Normal pulmonic valve. MMode/2D Measurements & Calculations LVIDd: 2.8 cm IVSd: 1.4 cm Ao root diam: 3.1 cm LVIDs: 1.9 cm LVPWd: 1.1 cm FS: 31.3 % LAV(MOD-sp4): 42.3 ml LA A4 area: 17.3 cm2 RA A4 area: 12.7 cm2 Time Measurements MV dec time: 0.34 sec Doppler Measurements & Calculations MV E max leland: 74.4 cm/sec Lat Peak E' Leland: 5.9 cm/sec Med Peak E' Leland: 4.4 cm/sec MV A max leland: 92.5 cm/sec E/E' lat: 12.5 E/E' med: 16.9 MV E/A: 0.80 MV V2 max: 108.8 cm/sec MV P1/2t max leland: 102.1 cm/sec Ao V2 max: 121.3 cm/sec MV max P.7 mmHg MV P1/2t: 90.2 msec Ao max P.9 mmHg MV V2 mean: 60.9 cm/sec MV mean P.7 mmHg MV dec slope: 331.5 cm/sec2 MV V2 VTI: 33.4 cm MVA(P1/2t): 2.4 cm2 LV V1 max: 101.4 cm/sec PA V2 max: 86.7 cm/sec LV V1 max P.1 mmHg Interpretation Summary Normal LV size. Left ventricular systolic function is normal. The estimated ejection fraction is 65 %. Stage 2 diastolic dysfunction. Mild focal aortic valve calcification. Compared to prior study, there is no significant change. Ordering Physician: Ewelina Sheikh Referring Physician: Bill Castaneda Performed By: Carlos Manuel aBtista RCS
--- NOTE | 2019-09-24 05:23 | MRI_ITS ---
STUDY: MRA OF THE HEAD WITHOUT CONTRAST REASON FOR EXAM: Female, 84 years old. neuro deficit, dizziness, recurrent falls TECHNIQUE: 3-D [id number]-rz-cixvnz (TOF) imaging was performed with MIPs. The study was performed unenhanced. COMPARISON: None. FINDINGS: Normal bilateral petrous carotid arteries. Normal right cavernous carotid artery with a normal supraclinoid bifurcation. Normal left cavernous carotid artery with a normal supraclinoid bifurcation. Normal right A1 segments of the anterior cerebral artery. Normal left A1 segments of the anterior cerebral artery. Normal intact anterior communicating artery (ACOM). Normal bilateral A2 segments of the anterior cerebral arteries. Normal right M1 and M2 segments of the middle cerebral arteries, with a normal M1 bifurcation. Normal left M1 and M2 segments of the middle cerebral arteries, with a normal M1 bifurcation. Normal right posterior communicating artery (PCOM). Normal left posterior communicating artery (PCOM). Normal bilateral vertebral arteries. Normal basilar artery with a normal basilar bifurcation. The visualized bilateral superior cerebellar (SCA) arteries are normal. Normal bilateral P1, P2 and visualized P3 segments of the posterior cerebral arteries. There is no demonstrated aneurysm of the [place]. There is no major vessel occlusion or hemodynamically significant stenosis. There is no demonstrated abnormality of the visualized brain. MRI/MRA Head ONLY without Contrast IMPRESSION: Normal MRA of the head Electronically Signed: Sukhi Stokes MD at 8:44 EDT Tel , Service support ,
--- NOTE | 2019-09-24 05:23 | RAD_ITS ---
STUDY: X-RAY - LUMBAR SPINE REASON FOR EXAM: Female, 84 years old. FALL, LOW BACK PAIN, H/O OSTERPOROSIS TECHNIQUE: 3 view(s) of the lumbar spine were obtained. COMPARISON: None FINDINGS: Normal lumbar lordosis. There is no substantial scoliosis. There is a normal alignment of the vertebrae. There is generalized demineralization of the vertebral bodies. The patient is status post interpedicular screw fixation at the L4-L5 level. Prior laminectomy. The soft tissue structures are unremarkable. RAD/Lumbar Spine 2 or 3 Views IMPRESSION: Status post laminectomy and fusion at the L4-L5 level. Electronically Signed: Javier Ledbetter, at 10:38 EDT , Service support ,
[2019-09-24] MEDS: Levothyroxine 112 MCG Tablet PO (06:05)
[2019-09-24] MEDS: Lisinopril 40 MG Tablet PO (06:05)
[2019-09-24] MEDS: amLODIPine 2.5 MG Tablet PO (06:05)
[2019-09-24 06:06] LABS: Absolute Lymphocyte Count 1.69 X10^3/uL (0.83-4.51); Absolute Neutrophil Count 3.4 X10^3/uL (2.0-7.7); Basophil# 0.05 X10^3/uL; Basophil% 0.9 % (0-1); Eosinophil# 0.08 X10^3/uL; Eosinophils% 1.4 % (0-5); Hematocrit 41.1 % (37-47); Hemoglobin 13.4 g/dL (12.0-15.0); Lymphocyte # 1.69 X10^3/ul (4.0); Lymphocyte % 29.5 % (19-41); Mean Corp Hgb Conc 32.6 g/dL (32-36); Mean Corpuscular Hgb 29.5 pg (27.0-32.0); Mean Corpuscular Volume 90.3 fL (81-99); Mean Platelet Vol. 8.6 fl (6.2-12.0); Monocyte% 8.7 % (0-10); NRBC Flagged by Analyzer 0 % (0-5); Neutrophil # 3.37 X10^3/uL (2.7-7.7); Platelet Count 290 K/mm3 (150-450); RBC Distribution Width CV 12.7 % (11.6-14.6); RBC Distribution Width SD 41.7 fl (35.1-43.9); Red Blood Count 4.55 M/mm3 (4.2-5.4); White Blood Count 5.7 K/mm3 (4.4-11.0)
[2019-09-24] MEDS: 0.9% Normal Saline 1,000 ML 75 ML IV ×2 (06:18→22:52)
[2019-09-24] MEDS: 0.9% Saline Lock 10 ML Syringe IV (06:18)
[2019-09-24 06:40] LABS: Bedside Glucose 103 mg/dL (70-110)
--- NOTE | 2019-09-24 06:50 | RAD_ITS ---
STUDY: X-RAY - PELVIS AND BILATERAL HIPS REASON FOR EXAM: Female, 84 years old. FALL, PELVIC PAIN TECHNIQUE: AP view of the pelvis.? 2 views of the right hip, and 2 views of the left hip were obtained. COMPARISON: Comparison is made with prior study dated December 04, 2016. FINDINGS: Moderate amount of fecal material is seen in the colon. Normal visualized soft tissue structures. There is narrowing with cortical sclerosis and osteophyte formation of the sacroiliac joint consistent with degenerative osteoarthritic changes. Normal bilateral superior and inferior pubic rami. There are degenerative changes of the pubic symphysis with articular narrowing and sclerosis. Normal bilateral ischial tuberosities. The patient is status post right total hip replacement. There is good alignment. The patient is status post left intrauterine fixation and compression screw fixation of a left intertrochanteric fracture. This is unchanged. The patient is status post laminectomy and fusion at the L4-L5 level. RAD/Hips B/L min 2 views w/ Pelvis IMPRESSION: Chronic changes. No acute abnormality is seen. Electronically Signed: Javier Ledbetter, at 10:36 EDT , Service support ,
[2019-09-24 06:54] LABS: AST(SGOT) 19 U/L (15-37); Alanine Aminotransfer ALT/SGPT 23 U/L (13-56); Albumin, Serum 3.6 g/dL (3.2-5.0); Alkaline Phosphatase 73 U/L (45-117); Anion Gap 6 (5-15); BUN 17 mg/dL (7-18); BUN/Creat Ratio 39.2 RATIO (10-20); Calcium,Total 9.4 mg/dL (8.5-10.1); Chloride 108 mmol/L (98-107); Cholesterol 273 mg/dL (200); Creatinine, Serum 0.43 mg/dL (0.55-1.02); EST Glomerular Filtration Rate 148 mL/min (>60); Est Glom Filt Rate - Afr Amer 179 mL/min (>60); Estimated Creatinine Clearance 37.45 ml/min; Globulin 3.7 g/dL (2.2-4.2); Glucose 105 mg/dL (74-106); High Density Lipoprotein 72 mg/dL; Potassium 3.7 mmol/L (3.5-5.1); Protein, Total 7.3 g/dL (6.4-8.2); Sodium Level 143 mmol/L (136-145); Thyroid Stim Hormone (TSH) 4.43 uIU/mL (0.358-3.74); Triglycerides 162 mg/dL; Very Low Density Lipoprotein 32 mg/dL (5-40)
[2019-09-24 07:48] LABS: Hemoglobin A1c 5.8 % (3.8-5.6)
[2019-09-24 08:19] LABS: Vitamin B12 299 pg/mL (211-911)
[2019-09-24 09:01] LABS: Vitamin D,25 Hydroxy 41.4 ng/mL
[2019-09-24] MEDS: Carvedilol 25 MG Tablet PO ×2 (10:32→21:34)
[2019-09-24] MEDS: Ezetimibe 10 MG Tablet PO (10:32)
[2019-09-24] MEDS: Enoxaparin 40 MG/0.4 ML Syringe SC (10:33)
[2019-09-24] MEDS: Cyanocobalamin 500 MCG Tablet PO (10:33)
--- NOTE | 2019-09-24 11:44 | PCM.PN.BLA ---
Progress Note Patient is an 84-year-old lady admitted with dizziness and recurrent falls. Patient has been admitted to a monitored bed currently undergoing evaluation Patient seen and examined, her initial assessment including history and physical, diagnostic data and management orders reviewed will follow. STROKE Vital Signs/Narrative: Vital Signs Temp Pulse Resp BP Pulse Ox 09/24/19 10:27 97.7 F L 73 16 149/85 H 98
[2019-09-24] MEDS: traMADol 50 MG Tablet PO ×2 (12:34→21:34)
[2019-09-24 12:40] LABS: Bedside Glucose 112 mg/dL (70-110)
--- NOTE | 2019-09-24 13:58 | CASEMGMT ---
ALEXANDER met with patient, introduced self and role at [facility]. SW had lengthy discussion regarding discharge plan. She decided she wanted home health. However, before ALEXANDER could make it back to her room to give her a list of home health agencies she had changed her mind. She decided she would like to go to TCU for rehab. ALEXANDER told her SW will check to see if they have any availability and if not let her know. ALEXANDER called Justina in TCU and left her a voice mail with referral. Ericka PRO MSW
[2019-09-24 16:11] LABS: Bedside Glucose 78 mg/dL (70-110)
[2019-09-24 22:20] LABS: Bedside Glucose 111 mg/dL (70-110)
[2019-09-25] VITALS (11 sets, daily range): BP systolic 102–157; BP diastolic 58–83; PULSE 57–78; RESP 14–16; TEMP 36.7–37.2; O2SAT 95–98
[2019-09-25] MEDS: Levothyroxine 112 MCG Tablet PO (05:39)
[2019-09-25 06:55] LABS: Bedside Glucose 98 mg/dL (70-110)
[2019-09-25] MEDS: Ezetimibe 10 MG Tablet PO (09:06)
[2019-09-25] MEDS: Carvedilol 25 MG Tablet PO ×2 (09:06→22:12)
[2019-09-25] MEDS: Cyanocobalamin 500 MCG Tablet PO (09:07)
[2019-09-25] MEDS: Lisinopril 40 MG Tablet PO (09:07)
[2019-09-25] MEDS: amLODIPine 2.5 MG Tablet PO (09:07)
[2019-09-25] MEDS: Enoxaparin 40 MG/0.4 ML Syringe SC (09:08)
--- NOTE | 2019-09-25 11:04 | CASEMGMT ---
ALEXANDER notified patient that TCU can accept her. ALEXANDER explained we will have to wait on insurance to approve her which will likely be tomorrow. She thanked for the news. Plan: [facility] TCU pending insurance approval. Ericka PRO MSW
[2019-09-25 11:35] LABS: Bedside Glucose 151 mg/dL (70-110)
[2019-09-25] MEDS: traMADol 50 MG Tablet PO ×2 (12:15→22:12)
--- NOTE | 2019-09-25 14:39 | PN_ITS ---
<Jim Becerra - Last Filed: 09/25/19 14:39> Patient Problems: Active and Suspected Problems (Last Reviewed 06/22/19 @ 10:[address] Pj Doll MD) Vertigo (Acute) Reason for Visit: vertigo Subjective: ongoing intermittent dizziness with turning head left, right, up, down. dizzy with getting up. No CP/SOB. no focal neurologic deficits. No dizziness at the time of my exam. No tinnitus or loss of hearing. Vitals/I&O's: Vital Signs Temp Pulse Resp BP Pulse Ox 98.4 F 66 16 140/83 H 98 09/25/19 09:00 09/25/19 09:59 09/25/19 09:00 09/25/19 09:59 09/25/19 09:00 Oxygen Delivery Method Room Air Weight: 132 lb 15.02 oz Body Mass Index (BMI) 22.8 Finger Stick Blood Glucose 227 Orthostatic Vital Signs Start: 09/25/19 09:59 Freq: q24h Status: Active Protocol: Activity Type Activity Date Activity User E-Sign Co-Sign Detail Recorded Client Recorded Date Recorded By Document 09/25/19 09:59 [facility] [id number] 09/25/19 10:11 BAM 09/25/19 09:59 Orthostatic Vitals Standing -Blood Pressure (90/60-120/80) 102/63 -Extremity Use Left Arm -Pulse Rate (60-100) 78 Sitting -Blood Pressure (90/60-120/80) 125/66 H -Extremity Use Left Arm -Pulse Rate (60-100) 71 Lying -Blood Pressure (90/60-120/80) 140/83 H -Extremity Use Left Arm -Pulse Rate (60-100) 66 Intake and Output for Last 24 Hours 09/23/19 09/24/19 09/25/19 23:59 23:59 23:59 Intake Total 1000.0 / 1000.0 607.5 / 607.5 Output Total 1100 / 1100 Balance 1000.0 / 1000.0 -492.5 / -492.5 General: Alert, Oriented x3, Cooperative HEENT: Atraumatic, PERRLA, EOMI, Normocephalic Neck: Supple, No JVD, Negative Carotid Bruits Lungs: Clear to auscultation, Normal air movement Cardiovascular: Regular rate, No murmurs Abdomen: Bowel Sounds Present, Soft, Non Tender Extremities: No edema, Capillary Refill Less than 3 Seconds Skin: No rashes, No breakdown Musculoskeletal: No Tenderness to Palpation of Joints or Extremities Neurological: Cranial nerves II-XII grossly intact, - - no nystagmus Psych/Mental Status: Normal Affect, Appropriate, Alert and oriented to time, place, person, mood and affect Laboratory Results 09/24/19 15:17: COVID-19 (UNA) Not Detected 09/24/19 16:04: POC Glucose 78 09/24/19 21:32: POC Glucose 111 H 09/25/19 06:43: POC Glucose 98 09/25/19 11:23: POC Glucose 151 H Current Medications Acetaminophen (Tylenol) 650 mg PO Q6H PRN PRN PRN Reason: Pain Score 1-10/Temp > 100.7 F Amlodipine Besylate (Norvasc) 2.5 mg PO DAILY [facility] Last Admin: 09/25/19 09:07 Dose: 2.5 mg Documented by: Carvedilol (Coreg) 25 mg PO BID [facility] Last Admin: 09/25/19 09:06 Dose: 25 mg Documented by: Cholecalciferol (Vitamin D (25mcg)) 1,000 unit PO DAILY [facility] Last Admin: 09/25/19 09:06 Dose: 1,000 unit Documented by: Cyanocobalamin (Vitamin B12) 500 mcg PO DAILY [facility] Last Admin: 09/25/19 09:07 Dose: 500 mcg Documented by: Dextrose (D50w Syringe) 0 gm IV X1 PRN; Protocol PRN Reason: Hypoglycemia Ezetimibe (Zetia) 10 mg PO DAILY [facility] Last Admin: 09/25/19 09:06 Dose: 10 mg Documented by: Enoxaparin Sodium (Lovenox) 40 mg SC DAILY [facility] Last Admin: 09/25/19 09:08 Dose: 40 mg Documented by: Glucagon () 1 mg IM .X1 PRN PRN Reason: Hypoglycemia Insulin Human Lispro (Humalog Kwikpen (Bkc)) 0 unit SC ACHS [facility]; Protocol Last Admin: 09/25/19 12:08 Dose: Not Given Documented by: Levothyroxine Sodium (Synthroid) 112 mcg PO DAILY@0600 [facility] Last Admin: 09/25/19 05:39 Dose: 112 mcg Documented by: Lisinopril (Zestril) 40 mg PO DAILY [facility] Last Admin: 09/25/19 09:07 Dose: 40 mg Documented by: Ondansetron HCl (Zofran) 4 mg IV Q8H PRN PRN PRN Reason: NAUSEA/VOMITING Sodium Chloride () 10 - 40 ml IV UD PRN PRN Reason: SALINE FLUSH Last Admin: 09/24/19 06:18 Dose: 10 ml Documented by: Tramadol HCl (Ultram) 50 mg PO BID [facility] Last Admin: 09/25/19 12:15 Dose: 50 mg Documented by: Medical Necessity - Tobacco Use Smoking Status: Never smoker Assessment/Plan All Active Problems (Last Reviewed 06/22/19 @ 10:[address] Pj Doll MD) Vertigo (Acute) Other chest pain (Resolved) 1. Vertigo - 2/2 BPPV and also orthostatic hypotension. stop HCTZ. Add ADIN hoses. Stroke workup negative. Trop neg. PT for vestibular therapy. 2. HTN - off hctz for above 3. HLD - statin 4. DMt2 - SSI. A1C 5.8, good for age. 5. Back pain, falls - vit D sufficient. b12 normal. DC planning: SNF placement This patient was seen by Jim Becerra PA-C under the supervision of Dr. Wilson. <Neo Wilson - Last Filed: 09/25/19 15:10> Vitals/I&O's: Vital Signs Temp Pulse Resp BP Pulse Ox 98.4 F 66 16 140/83 H 98 09/25/19 09:00 09/25/19 09:59 09/25/19 09:00 09/25/19 09:59 09/25/19 09:00 Oxygen Delivery Method Room Air Weight: 60.3 kg Body Mass Index (BMI) 22.8 Finger Stick Blood Glucose 227 Orthostatic Vital Signs Start: 09/25/19 09:59 Freq: q24h Status: Active Protocol: Activity Type Activity Date Activity User E-Sign Co-Sign Detail Recorded Client Recorded Date Recorded By Document 09/25/19 09:59 [facility] [id number] 09/25/19 10:11 BAM 09/25/19 09:59 Orthostatic Vitals Standing -Blood Pressure (90/60-120/80) 102/63 -Extremity Use Left Arm -Pulse Rate (60-100) 78 Sitting -Blood Pressure (90/60-120/80) 125/66 H -Extremity Use Left Arm -Pulse Rate (60-100) 71 Lying -Blood Pressure (90/60-120/80) 140/83 H -Extremity Use Left Arm -Pulse Rate (60-100) 66 Intake and Output for Last 24 Hours 09/23/19 09/24/19 09/25/19 23:59 23:59 23:59 Intake Total 1000.0 / 1000.0 607.5 / 607.5 Output Total 1100 / 1100 Balance 1000.0 / 1000.0 -492.5 / -492.5 Laboratory Results 09/24/19 15:17: COVID-19 (UNA) Not Detected 09/24/19 16:04: POC Glucose 78 09/24/19 21:32: POC Glucose 111 H 09/25/19 06:43: POC Glucose 98 09/25/19 11:23: POC Glucose 151 H Current Medications Acetaminophen (Tylenol) 650 mg PO Q6H PRN PRN PRN Reason: Pain Score 1-10/Temp > 100.7 F Amlodipine Besylate (Norvasc) 2.5 mg PO DAILY [facility] Last Admin: 09/25/19 09:07 Dose: 2.5 mg Documented by: Carvedilol (Coreg) 25 mg PO BID [facility] Last Admin: 09/25/19 09:06 Dose: 25 mg Documented by: Cholecalciferol (Vitamin D (25mcg)) 1,000 unit PO DAILY [facility] Last Admin: 09/25/19 09:06 Dose: 1,000 unit Documented by: Cyanocobalamin (Vitamin B12) 500 mcg PO DAILY [facility] Last Admin: 09/25/19 09:07 Dose: 500 mcg Documented by: Dextrose (D50w Syringe) 0 gm IV X1 PRN; Protocol PRN Reason: Hypoglycemia Ezetimibe (Zetia) 10 mg PO DAILY [facility] Last Admin: 09/25/19 09:06 Dose: 10 mg Documented by: Enoxaparin Sodium (Lovenox) 40 mg SC DAILY [facility] Last Admin: 09/25/19 09:08 Dose: 40 mg Documented by: Glucagon () 1 mg IM .X1 PRN PRN Reason: Hypoglycemia Insulin Human Lispro (Humalog Kwikpen (Bkc)) 0 unit SC ACHS [facility]; Protocol Last Admin: 09/25/19 12:08 Dose: Not Given Documented by: Levothyroxine Sodium (Synthroid) 112 mcg PO DAILY@0600 [facility] Last Admin: 09/25/19 05:39 Dose: 112 mcg Documented by: Lisinopril (Zestril) 40 mg PO DAILY [facility] Last Admin: 09/25/19 09:07 Dose: 40 mg Documented by: Ondansetron HCl (Zofran) 4 mg IV Q8H PRN PRN PRN Reason: NAUSEA/VOMITING Sodium Chloride () 10 - 40 ml IV UD PRN PRN Reason: SALINE FLUSH Last Admin: 09/24/19 06:18 Dose: 10 ml Documented by: Tramadol HCl (Ultram) 50 mg PO BID [facility] Last Admin: 09/25/19 12:15 Dose: 50 mg Documented by: Assessment/Plan This patient was seen in conjunction with Jim Bceerra PA-C . I have independently interviewed and examined the patient and reviewed pertinent historical, laboratory, and other data. Please refer to Jim Becerra PA-C note for details of this patient's presentation, findings, and recommendations. I have reviewed Jim Becerra PA-C note and concur with documented findings. In brief, patient is a an 84-year-old lady who presented with acute vertigo. Posterior circulation CVA ruled out with a negative MRI Physical Examination: GENERAL: cooperative HEENT: Atraumatic; EYES; Anicteric, Normal Conjunctiva NECK; supple, normal thyroid, RESPIRATORY: Diminished to auscultation CARDIOVASCULAR: Regular S1 S2, GI: soft, normoactive bowel sounds, : No Renal angle tenderness; EXTREMITIES: No edema, no clubbing, MUSCULOSKELETAL: no muscle waisting NEURO: Awake; no lateralizing signs. SKIN: No Rash PSYCH; Flat affect Assessment: 1. Acute vertigo secondary to BPPV 2. Essential tension 3. Dyslipidemia 4. Diabetes mellitus type 2 5. Back pain 6. Recurrent falls 7. Physical deconditioning Recommendations: 1. I have discussed the results of my overview and impressions with the patient 2. Options for management were reviewed Advance planning; did discuss with the patient regarding advanced directives as well as CODE STATUS. Did explain the various scenarios involved ( FULL CODE, DNR CCA, DNR CCA with no intubation, and DNR CC and what each meant) patient elected to full code with CPR and intubation if warranted. Order was placed. Time spent on discussion 18 minutes. OBSV E&M: 99029 Initial observation care L3 Procedures: 34667 Advncd Care Plan 30 Min
--- NOTE | 2019-09-25 14:54 | CASEMGMT ---
ALEXANDER spoke with Justina in TCU and insurance is going to deny the request for TCU as the insurance physician feels patient needs to remain in the hospital until her dizziness is resolved. [facility] physician or PA can do a Peer to Peer. Phone number is and reference number is [id number]. The peer to peer has to be done by noon Tue09-26-2019. ALEXANDER spoke with VINCE Fernandez and he will work on resolving patient's dizziness. Justina put in a call to insurance to see the proper way to manage this. Ericka PRO MSW
--- NOTE | 2019-09-25 14:55 | CASEMGMT ---
Addendum entered by Precious Oviedo 09/25/19 14:57: COLINDRES actually done at 1115. Edgar PITT CM Original Note: This RN CM to room with COLINDRES form at this time, explanation done-pt voices understanding, and signs COLINDRES form at this time. Original to chart and copy to pt at this time. Pt voices no further questions/concerns/needs at this time. Edgar PITT CM
[2019-09-25] MEDS: 0.9% Saline Lock 10 ML Syringe IV (17:05)
[2019-09-25 17:11] LABS: Bedside Glucose 99 mg/dL (70-110)
[2019-09-25 23:25] LABS: Bedside Glucose 113 mg/dL (70-110)
[2019-09-26] VITALS (9 sets, daily range): BP systolic 115–160; BP diastolic 55–81; PULSE 55–79; RESP 15–18; TEMP 36.3–36.9; O2SAT 96–100
[2019-09-26] MEDS: Levothyroxine 112 MCG Tablet PO (06:28)
[2019-09-26 06:46] LABS: Bedside Glucose 108 mg/dL (70-110)
[2019-09-26] MEDS: Enoxaparin 40 MG/0.4 ML Syringe SC (08:45)
[2019-09-26] MEDS: Carvedilol 25 MG Tablet PO ×2 (08:45→21:02)
[2019-09-26] MEDS: amLODIPine 2.5 MG Tablet PO (08:45)
[2019-09-26] MEDS: Cyanocobalamin 500 MCG Tablet PO (08:45)
[2019-09-26] MEDS: Acetaminophen 325 MG Tablet 650 MG PO ×2 (08:46→14:48)
[2019-09-26] MEDS: Ezetimibe 10 MG Tablet PO (08:46)
[2019-09-26] MEDS: Lisinopril 40 MG Tablet PO (08:46)
[2019-09-26] MEDS: traMADol 50 MG Tablet PO ×2 (11:01→22:11)
[2019-09-26 11:15] LABS: Bedside Glucose 113 mg/dL (70-110)
--- NOTE | 2019-09-26 11:54 | PCM.EXTCARCO ---
- Diet 09/24/19 05:23 Diet: Cardiac/Low Cholesterol Food consistency:: Regular Liquid Consistency:: Regular/Thin - Routine Orders/Code Status Suppository Type: Dulcolax 10mg Suppository Frequency: Daily PRN Routine Lab Work: CBC - 5 days, BMP - 5 days Code Status: Full Code - Therapies Physical Therapy: Vestibular therapy Occupational Therapy: Eval and Treat - Problem/Diagnosis (1) Vertigo Status: Acute Current Visit: Yes (2) Hypertension Status: Chronic Current Visit: Yes (3) Essential (primary) hypertension Status: Chronic Current Visit: No (4) HLD (hyperlipidemia) Status: Chronic Current Visit: No (5) Osteoarthritis Status: Chronic Current Visit: No (6) Controlled diabetes mellitus with peripheral circulatory disorder Status: Chronic Current Visit: No - Allergies/Procedures Done in Hospital Allergies/Adverse Reactions: Allergies amoxicillin Allergy (Verified 07/27/19 08:29) Unknown Anesthetics - Amide Type Allergy (Verified 07/27/19 08:29) Unknown Anesthetics - Lizzette Type- Parabens [Anesthetics - Lizzette Type] Allergy (Verified 07/27/19 08:29) Unknown Jatjpgy-Wnn-Fzq Reductase Inhibitor Allergy (Verified 07/27/19 08:29) Unknown Procedures: 2-D Echocardiogram - Type of Care/Length of Stay Estimated LOS: Convalescent Care Less Than 30 days Type of Care Needed: Skilled Rehab Potential: Fair Prognosis: Fair - Additional Orders/Day of Discharge Day of Discharge: 09/26/19 - Dietary and Speech Recommendations Dietitian Recommendations/Changes: Continue Cardiac/Low Cholesterol Diet, diet texture per ELECTRICAL TIMING DEVICE CALIBRATOR order. Will liberalize diet to regular diet if PO intakes do not improve. Will rec ONS if intakes fail and pt agreeable. Speech Linguistic Eval Summary: Referral received for evaluation d/t CVA work up which was negative for acute infarction. Pt passed the RN dyspahgia screening. Shalom RN denies concerns re: speech or swallow function. Swallow evaluation deferred. Informal evaluation revealed trace right labial asymmetry, which the patient reports is not new but noted that it was more pronounced immediately preceeding this hospitalizaiton. Trace-mild hoarseness/thickness of speech, although difficult to discern if different from baseline as premorbid speech intelligibility is unknown to this ELECTRICAL TIMING DEVICE CALIBRATOR and no family was present to confirm/deny changes from baseline. Brief hesitations for word retrieval noted 1-2x t/o assessment, typical of normal age related changed in retrieval and processing speed. Recent and remote memory intact. Provided education re: oral motor strengthening and ROM exercises to improve labial symmetry (trace right asymmetry at rest and w/ retractions, not new) and strategies to improve speech intelligibility and listener comprehension. All education well received. No further skilled ST intervention warranted at this time. - Follow Up Care Primary Care Physician: Bill Castaneda MD [Primary Care Provider] - Please follow up with your Primary Care Physician in: 1-2 weeks
--- NOTE | 2019-09-26 12:23 | PHA.DC.MR ---
Pharmacy Service has performed discharge medication reconciliation for this patient. The patient's discharge medication list was reviewed for discrepancies and discrepancies were resolved. Home Medications Cholecalciferol (Vitamin D3) [Vitamin D3] 1,000 unit PO DAILY 10/17/13 ezetimibe 10 mg tablet 10 mg PO DAILY 12/15/17 acetaminophen 500 mg tablet 500 mg PO BID tab 06/19/18 Levothyroxine [Synthroid] 112 mcg PO DAILY@0600 05/08/19 Lisinopril 40 mg PO DAILY 05/08/19 Teriparatide [Forteo] 20 mcg SUBCUT DAILY 05/08/19 Tramadol HCl [Ultram] 50 mg PO BID 05/08/19 amlodipine 2.5 mg tablet 2.5 mg PO DAILY #90 tab 06/22/19 carvedilol 25 mg tablet 25 mg PO BID #180 tab 09/05/19 Cyanocobalamin (Vitamin B-12) [Vitamin B-12] 500 mcg PO DAILY 09/24/19
--- NOTE | 2019-09-26 12:46 | PN_ITS ---
<Jim Becerra - Last Filed: 09/26/19 12:46> Patient Problems: Active and Suspected Problems (Last Reviewed 06/22/19 @ 10:[address] Pj Doll MD) Vertigo (Acute) Reason for Visit: dizziness Subjective: no dizziness at rest. ongoing dizziness with exertion. no orthostatic bp decline on standing. No LH/dizziness. No fever/chills. No nause/vomiting/diarrhea. No CP/palp. Vitals/I&O's: Vital Signs Temp Pulse Resp BP Pulse Ox 97.4 F L 60 18 149/81 H 100 09/26/19 08:44 09/26/19 10:59 09/26/19 08:44 09/26/19 08:44 09/26/19 08:44 Oxygen Delivery Method Room Air Weight: 132 lb 15.02 oz Body Mass Index (BMI) 22.8 Finger Stick Blood Glucose 227 Orthostatic Vital Signs Start: 09/25/19 09:59 Freq: q24h Status: Active Protocol: Activity Type Activity Date Activity User E-Sign Co-Sign Detail Recorded Client Recorded Date Recorded By Document 09/26/19 08:44 [facility] [id number] 09/26/19 08:44 [facility] 09/26/19 08:44 Orthostatic Vitals Standing -Blood Pressure (90/60-120/80) 143/79 H -Extremity Use Right Arm -Pulse Rate (60-100) 79 Sitting -Blood Pressure (90/60-120/80) 115/66 -Extremity Use Right Arm -Pulse Rate (60-100) 68 Lying -Blood Pressure (90/60-120/80) 149/81 H -Extremity Use Right Arm -Pulse Rate (60-100) 66 Intake and Output for Last 24 Hours 09/24/19 09/25/19 09/26/19 23:59 23:59 23:59 Intake Total 1000.0 / 1000.0 1107.5 / 1107.5 240 / 240 Output Total 1100 / 1100 600 / 600 Balance 1000.0 / 1000.0 7.5 / 7.5 -360 / -360 General: Alert, Oriented x3, Cooperative HEENT: Atraumatic, PERRLA, EOMI, Normocephalic Neck: Supple, No JVD, Negative Carotid Bruits Lungs: Clear to auscultation, Normal air movement Cardiovascular: Regular rate, No murmurs Abdomen: Bowel Sounds Present, Soft, Non Tender Extremities: No edema, Capillary Refill Less than 3 Seconds Skin: No rashes, No breakdown Musculoskeletal: No Tenderness to Palpation of Joints or Extremities Neurological: Cranial nerves II-XII grossly intact, - - no nystagmus Psych/Mental Status: Normal Affect, Appropriate, Alert and oriented to time, place, person, mood and affect Laboratory Results 09/25/19 17:01: POC Glucose 99 09/25/19 22:08: POC Glucose 113 H 09/26/19 06:30: POC Glucose 108 09/26/19 10:59: POC Glucose 113 H Current Medications Acetaminophen (Tylenol) 650 mg PO Q6H PRN PRN PRN Reason: Pain Score 1-10/Temp > 100.7 F Last Admin: 09/26/19 08:46 Dose: 650 mg Documented by: Amlodipine Besylate (Norvasc) 2.5 mg PO DAILY [facility] Last Admin: 09/26/19 08:45 Dose: 2.5 mg Documented by: Carvedilol (Coreg) 25 mg PO BID [facility] Last Admin: 09/26/19 08:45 Dose: 25 mg Documented by: Cholecalciferol (Vitamin D (25mcg)) 1,000 unit PO DAILY [facility] Last Admin: 09/26/19 08:46 Dose: 1,000 unit Documented by: Cyanocobalamin (Vitamin B12) 500 mcg PO DAILY [facility] Last Admin: 09/26/19 08:45 Dose: 500 mcg Documented by: Dextrose (D50w Syringe) 0 gm IV X1 PRN; Protocol PRN Reason: Hypoglycemia Ezetimibe (Zetia) 10 mg PO DAILY [facility] Last Admin: 09/26/19 08:46 Dose: 10 mg Documented by: Enoxaparin Sodium (Lovenox) 40 mg SC DAILY [facility] Last Admin: 09/26/19 08:45 Dose: 40 mg Documented by: Glucagon () 1 mg IM .X1 PRN PRN Reason: Hypoglycemia Insulin Human Lispro (Humalog Kwikpen (Bkc)) 0 unit SC ACHS [facility]; Protocol Last Admin: 09/26/19 11:00 Dose: Not Given Documented by: Levothyroxine Sodium (Synthroid) 112 mcg PO DAILY@0600 [facility] Last Admin: 09/26/19 06:28 Dose: 112 mcg Documented by: Lisinopril (Zestril) 40 mg PO DAILY [facility] Last Admin: 09/26/19 08:46 Dose: 40 mg Documented by: Ondansetron HCl (Zofran) 4 mg IV Q8H PRN PRN PRN Reason: NAUSEA/VOMITING Sodium Chloride () 10 - 40 ml IV UD PRN PRN Reason: SALINE FLUSH Last Admin: 09/25/19 17:05 Dose: 10 ml Documented by: Tramadol HCl (Ultram) 50 mg PO BID [facility] Last Admin: 09/26/19 11:01 Dose: 50 mg Documented by: STROKE Vital Signs/Narrative: Vital Signs Pulse 09/26/19 10:59 60 Medical Necessity - Tobacco Use Smoking Status: Never smoker Assessment/Plan All Active Problems (Last Reviewed 06/22/19 @ 10:[address] Pj Doll MD) Vertigo (Acute) Other chest pain (Resolved) 1. Vertigo - 2/2 BPPV and also orthostatic hypotension (resolved). HCTZ stopped. Continue ADIN hoses. Stroke workup negative. Trop neg. PT for vestibular therapy. 2. HTN - off hctz for above 3. HLD - statin 4. DMt2 - SSI. A1C 5.8, good for age. 5. Back pain, falls - vit D sufficient. b12 normal. pain controlled. DC planning: pt awaiting new precert for snf placement. This patient was seen by Jim Becerra PA-C under the supervision of Dr. Wilson. <Neo Wilson - Last Filed: 09/26/19 13:03> Vitals/I&O's: Vital Signs Temp Pulse Resp BP Pulse Ox 97.4 F L 60 18 149/81 H 100 09/26/19 08:44 09/26/19 10:59 09/26/19 08:44 09/26/19 08:44 09/26/19 08:44 Oxygen Delivery Method Room Air Weight: 60.3 kg Body Mass Index (BMI) 22.8 Finger Stick Blood Glucose 227 Orthostatic Vital Signs Start: 09/25/19 09:59 Freq: q24h Status: Active Protocol: Activity Type Activity Date Activity User E-Sign Co-Sign Detail Recorded Client Recorded Date Recorded By Document 09/26/19 08:44 [facility] [id number] 09/26/19 08:44 [facility] 09/26/19 08:44 Orthostatic Vitals Standing -Blood Pressure (90/60-120/80) 143/79 H -Extremity Use Right Arm -Pulse Rate (60-100) 79 Sitting -Blood Pressure (90/60-120/80) 115/66 -Extremity Use Right Arm -Pulse Rate (60-100) 68 Lying -Blood Pressure (90/60-120/80) 149/81 H -Extremity Use Right Arm -Pulse Rate (60-100) 66 Intake and Output for Last 24 Hours 09/24/19 09/25/19 09/26/19 23:59 23:59 23:59 Intake Total 1000.0 / 1000.0 1107.5 / 1107.5 240 / 240 Output Total 1100 / 1100 600 / 600 Balance 1000.0 / 1000.0 7.5 / 7.5 -360 / -360 Laboratory Results 09/25/19 17:01: POC Glucose 99 09/25/19 22:08: POC Glucose 113 H 09/26/19 06:30: POC Glucose 108 09/26/19 10:59: POC Glucose 113 H Current Medications Acetaminophen (Tylenol) 650 mg PO Q6H PRN PRN PRN Reason: Pain Score 1-10/Temp > 100.7 F Last Admin: 09/26/19 08:46 Dose: 650 mg Documented by: Amlodipine Besylate (Norvasc) 2.5 mg PO DAILY [facility] Last Admin: 09/26/19 08:45 Dose: 2.5 mg Documented by: Carvedilol (Coreg) 25 mg PO BID [facility] Last Admin: 09/26/19 08:45 Dose: 25 mg Documented by: Cholecalciferol (Vitamin D (25mcg)) 1,000 unit PO DAILY [facility] Last Admin: 09/26/19 08:46 Dose: 1,000 unit Documented by: Cyanocobalamin (Vitamin B12) 500 mcg PO DAILY [facility] Last Admin: 09/26/19 08:45 Dose: 500 mcg Documented by: Dextrose (D50w Syringe) 0 gm IV X1 PRN; Protocol PRN Reason: Hypoglycemia Ezetimibe (Zetia) 10 mg PO DAILY [facility] Last Admin: 09/26/19 08:46 Dose: 10 mg Documented by: Enoxaparin Sodium (Lovenox) 40 mg SC DAILY [facility] Last Admin: 09/26/19 08:45 Dose: 40 mg Documented by: Glucagon () 1 mg IM .X1 PRN PRN Reason: Hypoglycemia Insulin Human Lispro (Humalog Kwikpen (Bkc)) 0 unit SC ACHS [facility]; Protocol Last Admin: 09/26/19 11:00 Dose: Not Given Documented by: Levothyroxine Sodium (Synthroid) 112 mcg PO DAILY@0600 [facility] Last Admin: 09/26/19 06:28 Dose: 112 mcg Documented by: Lisinopril (Zestril) 40 mg PO DAILY [facility] Last Admin: 09/26/19 08:46 Dose: 40 mg Documented by: Ondansetron HCl (Zofran) 4 mg IV Q8H PRN PRN PRN Reason: NAUSEA/VOMITING Sodium Chloride () 10 - 40 ml IV UD PRN PRN Reason: SALINE FLUSH Last Admin: 09/25/19 17:05 Dose: 10 ml Documented by: Tramadol HCl (Ultram) 50 mg PO BID [facility] Last Admin: 09/26/19 11:01 Dose: 50 mg Documented by: STROKE Vital Signs/Narrative: Vital Signs Pulse 09/26/19 10:59 60 Assessment/Plan This patient was seen in conjunction with Jim Becerra PA-C . I have independently interviewed and examined the patient and reviewed pertinent historical, laboratory, and other data. Please refer to Jim Becerra PA-C note for details of this patient's presentation, findings, and recommendations. I have reviewed Jim Becerra PA-C note and concur with documented findings. In brief, patient is a an 84-year-old lady who presented with acute vertigo. Posterior circulation CVA ruled out with a negative MRI -11/27/2019; awaiting insurance preset prior to transfer to retirement facility Physical Examination: GENERAL: cooperative HEENT: Atraumatic; EYES; Anicteric, Normal Conjunctiva NECK; supple, normal thyroid, RESPIRATORY: Diminished to auscultation CARDIOVASCULAR: Regular S1 S2, GI: soft, normoactive bowel sounds, : No Renal angle tenderness; EXTREMITIES: No edema, no clubbing, MUSCULOSKELETAL: no muscle waisting NEURO: Awake; no lateralizing signs. SKIN: No Rash PSYCH; Flat affect Assessment: 1. Acute vertigo secondary to BPPV 2. Essential tension 3. Dyslipidemia 4. Diabetes mellitus type 2 5. Back pain 6. Recurrent falls 7. Physical deconditioning Recommendations: 1. I have discussed the results of my overview and impressions with the patient 2. Options for management were reviewed Inpatient E&M: 20707 Subs Hosp L2
--- NOTE | 2019-09-26 13:56 | CASEMGMT ---
PT saw patient this afternoon and she is not feeling dizzy. SW called Justina in TCU and asked her to please re-start the pre-cert request for patient. Ericka PRO MSW
[2019-09-26 17:05] LABS: Bedside Glucose 100 mg/dL (70-110)
[2019-09-26 21:56] LABS: Bedside Glucose 134 mg/dL (70-110)
[2019-09-27 01:50] VITALS: BP 114/59; BP 149/74; BP 160/73; PULSE 60; PULSE 68; PULSE 72; RESP 18; TEMP 36.7; O2SAT 97
[2019-09-27 02:59] VITALS: PULSE 55
[2019-09-27 05:20] VITALS: BP 150/69; PULSE 63; RESP 18; TEMP 36.6; O2SAT 96
[2019-09-27] MEDS: Levothyroxine 112 MCG Tablet PO (05:21)
[2019-09-27 06:40] LABS: Bedside Glucose 95 mg/dL (70-110)
[2019-09-27 07:08] VITALS: PULSE 58
[2019-09-27 10:45] VITALS: BP 111/63; PULSE 75; RESP 18; TEMP 36.8; O2SAT 99
--- NOTE | 2019-09-27 10:56 | PN_ITS ---
<Nahed Kumar - Last Filed: 09/27/19 11:15> Patient Problems: Active and Suspected Problems (Last Reviewed 06/22/19 @ 10:[address] Pj Doll MD) Vertigo (Acute) Subjective: Patient seen and examined. Reports vertigo is overall improved however continues to have dizziness with quick movements. Patient reports she feels generally weak and is afraid she is going to fall. - Physical Exam Vitals/I&O's: Vital Signs Temp Pulse Resp BP Pulse Ox 98.2 F 75 18 111/63 99 09/27/19 10:45 09/27/19 10:45 09/27/19 10:45 09/27/19 10:45 09/27/19 10:45 Oxygen Delivery Method Room Air Weight: 132 lb 15.02 oz Body Mass Index (BMI) 22.8 Finger Stick Blood Glucose 227 Orthostatic Vital Signs Start: 09/25/19 09:59 Freq: q24h Status: Active Protocol: Activity Type Activity Date Activity User E-Sign Co-Sign Detail Recorded Client Recorded Date Recorded By Document 09/27/19 01:50 MAB [id number] 09/27/19 02:08 MAB 09/27/19 01:50 Orthostatic Vitals Standing -Blood Pressure (90/60-120/80) 149/74 H -Extremity Use Left Arm -Pulse Rate (60-100) 72 Sitting -Blood Pressure (90/60-120/80) 160/73 H -Extremity Use Left Arm -Pulse Rate (60-100) 68 Lying -Blood Pressure (90/60-120/80) 114/59 L -Extremity Use Left Arm -Pulse Rate (60-100) 60 Intake and Output for Last 24 Hours 09/25/19 09/26/19 09/27/19 23:59 23:59 23:59 Intake Total 1107.5 / 1107.5 780 / 780 120 / 120 Output Total 1100 / 1100 1050 / 1050 300 / 300 Balance 7.5 / 7.5 -270 / -270 -180 / -180 General: Alert, Oriented x3, Cooperative HEENT: Atraumatic, PERRLA, EOMI, Normocephalic Neck: Supple, No JVD, Negative Carotid Bruits Lungs: Clear to auscultation, Normal air movement Cardiovascular: Regular rate, No murmurs Abdomen: Bowel Sounds Present, Soft, Non Tender Extremities: No clubbing, No cyanosis, No edema, Capillary Refill Less than 3 Seconds Skin: No rashes, No breakdown Musculoskeletal: No Tenderness to Palpation of Joints or Extremities Neurological: Cranial nerves II-XII grossly intact, Neuro grossly intact Psych/Mental Status: Normal Affect, Appropriate Laboratory Results 09/26/19 10:59: POC Glucose 113 H 09/26/19 16:13: POC Glucose 100 09/26/19 21:02: POC Glucose 134 H 09/27/19 06:35: POC Glucose 95 Current Medications Acetaminophen (Tylenol) 650 mg PO Q6H PRN PRN PRN Reason: Pain Score 1-10/Temp > 100.7 F Last Admin: 09/26/19 14:48 Dose: 650 mg Documented by: Amlodipine Besylate (Norvasc) 2.5 mg PO DAILY [facility] Last Admin: 09/26/19 08:45 Dose: 2.5 mg Documented by: Carvedilol (Coreg) 25 mg PO BID [facility] Last Admin: 09/26/19 21:02 Dose: 25 mg Documented by: Cholecalciferol (Vitamin D (25mcg)) 1,000 unit PO DAILY [facility] Last Admin: 09/26/19 08:46 Dose: 1,000 unit Documented by: Cyanocobalamin (Vitamin B12) 500 mcg PO DAILY [facility] Last Admin: 09/26/19 08:45 Dose: 500 mcg Documented by: Dextrose (D50w Syringe) 0 gm IV X1 PRN; Protocol PRN Reason: Hypoglycemia Ezetimibe (Zetia) 10 mg PO DAILY [facility] Last Admin: 09/26/19 08:46 Dose: 10 mg Documented by: Enoxaparin Sodium (Lovenox) 40 mg SC DAILY [facility] Last Admin: 09/26/19 08:45 Dose: 40 mg Documented by: Glucagon () 1 mg IM .X1 PRN PRN Reason: Hypoglycemia Insulin Human Lispro (Humalog Kwikpen (Bkc)) 0 unit SC [facility]; Protocol Last Admin: 09/27/19 06:55 Dose: Not Given Documented by: Levothyroxine Sodium (Synthroid) 112 mcg PO DAILY@0600 [facility] Last Admin: 09/27/19 05:21 Dose: 112 mcg Documented by: Lisinopril (Zestril) 40 mg PO DAILY [facility] Last Admin: 09/26/19 08:46 Dose: 40 mg Documented by: Ondansetron HCl (Zofran) 4 mg IV Q8H PRN PRN PRN Reason: NAUSEA/VOMITING Sodium Chloride () 10 - 40 ml IV UD PRN PRN Reason: SALINE FLUSH Last Admin: 09/25/19 17:05 Dose: 10 ml Documented by: Tramadol HCl (Ultram) 50 mg PO BID [facility] Last Admin: 09/26/19 22:11 Dose: 50 mg Documented by: Medical Necessity - Tobacco Use Smoking Status: Never smoker Assessment/Plan All Active Problems (Last Reviewed 06/22/19 @ 10:[address] Pj Doll MD) Vertigo (Acute) Other chest pain (Resolved) 1. Vertigo, BPPV-MRI of brain negative. Echocardiogram demonstrates an EF of 65%, stage II diastolic dysfunction. PT for vestibular therapy. PRN meclizine. 2. Debility, chronic back pain with history of falls- PT/OT. SNF pending pre- cert as noted above. 3. Hypertension-stable, continue lisinopril, amlodipine, carvedilol. 4. Hyperlipidemia- zetia. 5. Type 2 diabetes mellitus-hemoglobin A1c 5.8%. Accu-Cheks with sliding scale insulin. 6. Hypothyroidism-continue Synthroid regimen. DVT prophylaxis-Lovenox sc Discharge planning: SNF pending pre-cert. This patient was seen by ANGIE Pinto under the supervision of Dr. Wilson. <Neo Wilson - Last Filed: 09/27/19 12:15> - Physical Exam Vitals/I&O's: Vital Signs Temp Pulse Resp BP Pulse Ox 98.2 F 75 18 111/63 99 09/27/19 10:45 09/27/19 10:45 09/27/19 10:45 09/27/19 10:45 09/27/19 10:45 Oxygen Delivery Method Room Air Weight: 60.3 kg Body Mass Index (BMI) 22.8 Finger Stick Blood Glucose 227 Orthostatic Vital Signs Start: 09/25/19 09:59 Freq: q24h Status: Active Protocol: Activity Type Activity Date Activity User E-Sign Co-Sign Detail Recorded Client Recorded Date Recorded By Document 09/27/19 01:50 MAB [id number] 09/27/19 02:08 MAB 09/27/19 01:50 Orthostatic Vitals Standing -Blood Pressure (90/60-120/80) 149/74 H -Extremity Use Left Arm -Pulse Rate (60-100) 72 Sitting -Blood Pressure (90/60-120/80) 160/73 H -Extremity Use Left Arm -Pulse Rate (60-100) 68 Lying -Blood Pressure (90/60-120/80) 114/59 L -Extremity Use Left Arm -Pulse Rate (60-100) 60 Intake and Output for Last 24 Hours 09/25/19 09/26/19 09/27/19 23:59 23:59 23:59 Intake Total 1107.5 / 1107.5 780 / 780 360 / 360 Output Total 1100 / 1100 1050 / 1050 650 / 650 Balance 7.5 / 7.5 -270 / -270 -290 / -290 Laboratory Results 09/26/19 16:13: POC Glucose 100 09/26/19 21:02: POC Glucose 134 H 09/27/19 06:35: POC Glucose 95 09/27/19 11:42: POC Glucose 148 H Current Medications Acetaminophen (Tylenol) 650 mg PO Q6H PRN PRN PRN Reason: Pain Score 1-10/Temp > 100.7 F Last Admin: 09/26/19 14:48 Dose: 650 mg Documented by: Amlodipine Besylate (Norvasc) 2.5 mg PO DAILY [facility] Last Admin: 09/27/19 11:34 Dose: 2.5 mg Documented by: Carvedilol (Coreg) 25 mg PO BID [facility] Last Admin: 09/27/19 11:34 Dose: 25 mg Documented by: Cholecalciferol (Vitamin D (25mcg)) 1,000 unit PO DAILY [facility] Last Admin: 09/27/19 11:34 Dose: 1,000 unit Documented by: Cyanocobalamin (Vitamin B12) 500 mcg PO DAILY [facility] Last Admin: 09/27/19 11:35 Dose: 500 mcg Documented by: Dextrose (D50w Syringe) 0 gm IV X1 PRN; Protocol PRN Reason: Hypoglycemia Ezetimibe (Zetia) 10 mg PO DAILY [facility] Last Admin: 09/27/19 11:34 Dose: 10 mg Documented by: Enoxaparin Sodium (Lovenox) 40 mg SC DAILY [facility] Last Admin: 09/27/19 11:34 Dose: 40 mg Documented by: Glucagon () 1 mg IM .X1 PRN PRN Reason: Hypoglycemia Insulin Human Lispro (Humalog Kwikpen (Bkc)) 0 unit SC ACHS [facility]; Protocol Last Admin: 09/27/19 11:43 Dose: Not Given Documented by: Levothyroxine Sodium (Synthroid) 112 mcg PO DAILY@0600 [facility] Last Admin: 09/27/19 05:21 Dose: 112 mcg Documented by: Lisinopril (Zestril) 40 mg PO DAILY [facility] Last Admin: 09/27/19 11:35 Dose: 40 mg Documented by: Meclizine HCl (Antivert) 12.5 mg PO BID PRN PRN PRN Reason: Vertigo Ondansetron HCl (Zofran) 4 mg IV Q8H PRN PRN PRN Reason: NAUSEA/VOMITING Sodium Chloride () 10 - 40 ml IV UD PRN PRN Reason: SALINE FLUSH Last Admin: 09/25/19 17:05 Dose: 10 ml Documented by: Tramadol HCl (Ultram) 50 mg PO BID [facility] Last Admin: 09/26/19 22:11 Dose: 50 mg Documented by: Assessment/Plan This patient was seen in conjunction with ANGIE Pinto . I have independently interviewed and examined the patient and reviewed pertinent historical, laboratory, and other data. Please refer to ANGIE Pinto note for details of this patient's presentation, findings, and recommendations. I have reviewed ANGIE Pinto note and concur with documented findings. In brief, patient is a an 84-year-old lady who presented with acute vertigo. Posterior circulation CVA ruled out with a negative MRI -09/26/2019; awaiting insurance preset prior to transfer to senior living facility -09/27/2019 seen her vertiginous symptoms appear to be improving with a vestibular therapy. Still awaiting insurance precertification prior to transfer to senior living facility. Physical Examination: GENERAL: cooperative HEENT: Atraumatic; EYES; Anicteric, Normal Conjunctiva NECK; supple, normal thyroid, RESPIRATORY: Diminished to auscultation CARDIOVASCULAR: Regular S1 S2, GI: soft, normoactive bowel sounds, : No Renal angle tenderness; EXTREMITIES: No edema, no clubbing, MUSCULOSKELETAL: no muscle waisting NEURO: Awake; no lateralizing signs. SKIN: No Rash PSYCH; Flat affect Assessment: 1. Acute vertigo secondary to BPPV 2. Essential tension 3. Dyslipidemia 4. Diabetes mellitus type 2 5. Back pain 6. Recurrent falls 7. Physical deconditioning Recommendations: 1. I have discussed the results of my overview and impressions with the patient 2. Options for management were reviewed Inpatient E&M: 95186 Subs Hosp L2
[2019-09-27] MEDS: Ezetimibe 10 MG Tablet PO (11:34)
[2019-09-27] MEDS: Enoxaparin 40 MG/0.4 ML Syringe SC (11:34)
[2019-09-27] MEDS: Carvedilol 25 MG Tablet PO (11:34)
[2019-09-27] MEDS: amLODIPine 2.5 MG Tablet PO (11:34)
[2019-09-27] MEDS: Lisinopril 40 MG Tablet PO (11:35)
[2019-09-27] MEDS: Cyanocobalamin 500 MCG Tablet PO (11:35)
[2019-09-27 12:00] LABS: Bedside Glucose 148 mg/dL (70-110)
--- NOTE | 2019-09-27 13:08 | DS.PCM_ITS ---
<Nahed Kumar - Last Filed: 09/27/19 13:12> Discharge Date and Diagnosis Date of Admission: 09/24/19 Date of Discharge: 09/27/19 - Primary Discharge Diagnosis Acute Problems: Active Problems (Last Reviewed 06/22/19 @ 10:[address] Pj Doll MD) 1. Vertigo, BPPV 2. Debility, chronic back pain with history of falls 3. Hypertension 4. Hyperlipidemia 5. Type 2 diabetes mellitus 6. Hypothyroidism - Secondary Discharge Diagnosis Chronic Problems: Chronic Problems (Last Reviewed 06/22/19 @ 10:[address] Pj Doll MD) Hypertension (Chronic) Essential (primary) hypertension (Chronic) HLD (hyperlipidemia) (Chronic) Palpitations (Chronic) Osteoarthritis (Chronic) Controlled diabetes mellitus with peripheral circulatory disorder (Chronic) Hospital Course and Treatment Imaging Results: Diagnostic Data Brain CT 09/24/19 02:39 IMPRESSION: Chronic involutional changes of the brain. Partial empty sella syndrome. 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 Would suggest follow-up MRI in 6 months to assess stability. No demonstrated acute intracranial process. Electronically Signed: Maciej Guerrero MD at 3:57 EDT , Service support , Chest X-Ray 09/24/19 03:05 IMPRESSION: No evidence for acute cardiopulmonary pathology. Electronically Signed: Maciej Guerrero MD at 3:48 EDT , Service support , Brain MRI 09/24/19 05:23 IMPRESSION: Normal unenhanced MRI of the brain. Electronically Signed: Sukhi Stokes MD at 8:42 EDT Tel , Service support , Head MRA 09/24/19 05:23 IMPRESSION: Normal MRA of the head Electronically Signed: Sukhi Stokes MD at 8:44 EDT Tel , Service support , Lumbar Spine X-Ray 09/24/19 05:23 IMPRESSION: Status post laminectomy and fusion at the L4-L5 level. Electronically Signed: Javier Ledbetter, at 10:38 EDT , Service support , Hip/Pelvis X-Ray 09/24/19 06:50 IMPRESSION: Chronic changes. No acute abnormality is seen. Electronically Signed: Javier Ledbetter, at 10:36 EDT , Service support , Operations: None Procedures: 2-D Echocardiogram Summary of Care Provided: The patient is a 84 year old F admitted 09/24/2019 due to dizziness with recurrent falls. 1. Vertigo, BPPV-MRI of brain negative. Echocardiogram demonstrates an EF of 65%, stage II diastolic dysfunction. PT for vestibular therapy. PRN meclizine. SNF at discharge. 2. Debility, chronic back pain with history of falls- PT/OT. SNF as noted above. 3. Hypertension-stable, continue lisinopril, amlodipine, carvedilol. 4. Hyperlipidemia- zetia. 5. Type 2 diabetes mellitus-hemoglobin A1c 5.8%. Accu-Cheks with sliding scale insulin. 6. Hypothyroidism-continue Synthroid regimen. General: Alert, Oriented x3, Cooperative HEENT: Atraumatic, PERRLA, EOMI, Normocephalic Neck: Supple, No JVD, Negative Carotid Bruits Lungs: Clear to auscultation, Normal air movement Cardiovascular: Regular rate, No murmurs Abdomen: Bowel Sounds Present, Soft, Non Tender Extremities: No clubbing, No cyanosis, No edema, Capillary Refill Less than 3 Seconds Skin: No rashes, No breakdown Musculoskeletal: No Tenderness to Palpation of Joints or Extremities Neurological: Cranial nerves II-XII grossly intact, Neuro grossly intact Psych/Mental Status: Normal Affect, Appropriate Patient seen and examined prior to discharge. Physical assessment as noted above. Patient is stable for discharge with follow up recommendations as noted above. This patient was seen by ANGIE Pinto under the supervision of Dr. Wilson. - Physical Exam Vitals/I&O's: Vital Signs Temp Pulse Resp BP Pulse Ox 98.2 F 75 18 111/63 99 09/27/19 10:45 09/27/19 10:45 09/27/19 10:45 09/27/19 10:45 09/27/19 10:45 Oxygen Delivery Method Room Air Weight: 132 lb 15.02 oz Body Mass Index (BMI) 22.8 Finger Stick Blood Glucose 227 Orthostatic Vital Signs Start: 09/25/19 09:59 Freq: q24h Status: Active Protocol: Activity Type Activity Date Activity User E-Sign Co-Sign Detail Recorded Client Recorded Date Recorded By Document 09/27/19 01:50 MAB [id number] 09/27/19 02:08 MAB 09/27/19 01:50 Orthostatic Vitals Standing -Blood Pressure (90/60-120/80) 149/74 H -Extremity Use Left Arm -Pulse Rate (60-100) 72 Sitting -Blood Pressure (90/60-120/80) 160/73 H -Extremity Use Left Arm -Pulse Rate (60-100) 68 Lying -Blood Pressure (90/60-120/80) 114/59 L -Extremity Use Left Arm -Pulse Rate (60-100) 60 Intake and Output for Last 24 Hours 09/25/19 09/26/19 09/27/19 23:59 23:59 23:59 Intake Total 1107.5 / 1107.5 780 / 780 360 / 360 Output Total 1100 / 1100 1050 / 1050 650 / 650 Balance 7.5 / 7.5 -270 / -270 -290 / -290 Laboratory Results 09/26/19 16:13: POC Glucose 100 09/26/19 21:02: POC Glucose 134 H 09/27/19 06:35: POC Glucose 95 09/27/19 11:42: POC Glucose 148 H Current Medications Acetaminophen (Tylenol) 650 mg PO Q6H PRN PRN PRN Reason: Pain Score 1-10/Temp > 100.7 F Last Admin: 09/26/19 14:48 Dose: 650 mg Documented by: Amlodipine Besylate (Norvasc) 2.5 mg PO DAILY [facility] Last Admin: 09/27/19 11:34 Dose: 2.5 mg Documented by: Carvedilol (Coreg) 25 mg PO BID [facility] Last Admin: 09/27/19 11:34 Dose: 25 mg Documented by: Cholecalciferol (Vitamin D (25mcg)) 1,000 unit PO DAILY [facility] Last Admin: 09/27/19 11:34 Dose: 1,000 unit Documented by: Cyanocobalamin (Vitamin B12) 500 mcg PO DAILY [facility] Last Admin: 09/27/19 11:35 Dose: 500 mcg Documented by: Dextrose (D50w Syringe) 0 gm IV X1 PRN; Protocol PRN Reason: Hypoglycemia Ezetimibe (Zetia) 10 mg PO DAILY [facility] Last Admin: 09/27/19 11:34 Dose: 10 mg Documented by: Enoxaparin Sodium (Lovenox) 40 mg SC DAILY [facility] Last Admin: 09/27/19 11:34 Dose: 40 mg Documented by: Glucagon () 1 mg IM .X1 PRN PRN Reason: Hypoglycemia Insulin Human Lispro (Humalog Kwikpen (Bkc)) 0 unit SC ACHS [facility]; Protocol Last Admin: 09/27/19 11:43 Dose: Not Given Documented by: Levothyroxine Sodium (Synthroid) 112 mcg PO DAILY@0600 [facility] Last Admin: 09/27/19 05:21 Dose: 112 mcg Documented by: Lisinopril (Zestril) 40 mg PO DAILY [facility] Last Admin: 09/27/19 11:35 Dose: 40 mg Documented by: Meclizine HCl (Antivert) 12.5 mg PO BID PRN PRN PRN Reason: Vertigo Ondansetron HCl (Zofran) 4 mg IV Q8H PRN PRN PRN Reason: NAUSEA/VOMITING Sodium Chloride () 10 - 40 ml IV UD PRN PRN Reason: SALINE FLUSH Last Admin: 09/25/19 17:05 Dose: 10 ml Documented by: Tramadol HCl (Ultram) 50 mg PO BID [facility] Last Admin: 09/26/19 22:11 Dose: 50 mg Documented by: Home Medications: Medications to take at Discharge Cholecalciferol (Vitamin D3) [Vitamin D3] 1,000 unit PO DAILY 10/17/13 ezetimibe 10 mg tablet 10 mg PO DAILY 12/15/17 acetaminophen 500 mg tablet 500 mg PO BID tab 06/19/18 Levothyroxine [Synthroid] 112 mcg PO DAILY@0600 05/08/19 Lisinopril 40 mg PO DAILY 05/08/19 Teriparatide [Forteo] 20 mcg SUBCUT DAILY 05/08/19 Tramadol HCl [Ultram] 50 mg PO BID 05/08/19 amlodipine 2.5 mg tablet 2.5 mg PO DAILY #90 tab 06/22/19 carvedilol 25 mg tablet 25 mg PO BID #180 tab 09/05/19 Cyanocobalamin (Vitamin B-12) [Vitamin B-12] 500 mcg PO DAILY 09/24/19 Meclizine HCl [Antivert] 12.5 mg PO BID PRN PRN tab 09/27/19 Primary Care Physician: Bill Castaneda MD [Primary Care Provider] - Please follow up with your Primary Care Physician in: 1-2 weeks Disposition: [facility] facility Minutes spent on discharge:: 35 Patient Condition:: Stable Medical Necessity - Tobacco Use Smoking Status: Never smoker Meaningful Use Info Meaningful Use Diagnoses (Choose all that apply): None applicable <Neo Wilson - Last Filed: 09/27/19 13:56> Discharge Date and Diagnosis - Secondary Discharge Diagnosis Chronic Problems: Chronic Problems (Last Reviewed 06/22/19 @ 10:[address] Pj Doll MD) Hypertension (Chronic) Essential (primary) hypertension (Chronic) HLD (hyperlipidemia) (Chronic) Palpitations (Chronic) Osteoarthritis (Chronic) Controlled diabetes mellitus with peripheral circulatory disorder (Chronic) Hospital Course and Treatment Summary of Care Provided: This patient was seen in conjunction with ANGIE Pinto . I have independently interviewed and examined the patient and reviewed pertinent historical, laboratory, and other data. Please refer to ANGIE Pinto note for details of this patient's presentation, findings, and recommendations. I have reviewed ANGIE Pinto note and concur with documented findings. In brief, patient is a an 84-year-old lady who presented with acute vertigo. Posterior circulation CVA ruled out with a negative MRI Assessment: 1. Acute vertigo secondary to BPPV 2. Essential tension 3. Dyslipidemia 4. Diabetes mellitus type 2 5. Back pain 6. Recurrent falls 7. Physical deconditioning Hospital course: As documented above - Physical Exam Vitals/I&O's: Vital Signs Temp Pulse Resp BP Pulse Ox 98.2 F 75 18 111/63 99 09/27/19 10:45 09/27/19 10:45 09/27/19 10:45 09/27/19 10:45 09/27/19 10:45 Oxygen Delivery Method Room Air Weight: 60.3 kg Body Mass Index (BMI) 22.8 Finger Stick Blood Glucose 227 Orthostatic Vital Signs Start: 09/25/19 09:59 Freq: q24h Status: Active Protocol: Activity Type Activity Date Activity User E-Sign Co-Sign Detail Recorded Client Recorded Date Recorded By Document 09/27/19 01:50 MAB [id number] 09/27/19 02:08 MAB 09/27/19 01:50 Orthostatic Vitals Standing -Blood Pressure (90/60-120/80) 149/74 H -Extremity Use Left Arm -Pulse Rate (60-100) 72 Sitting -Blood Pressure (90/60-120/80) 160/73 H -Extremity Use Left Arm -Pulse Rate (60-100) 68 Lying -Blood Pressure (90/60-120/80) 114/59 L -Extremity Use Left Arm -Pulse Rate (60-100) 60 Intake and Output for Last 24 Hours 09/25/19 09/26/19 09/27/19 23:59 23:59 23:59 Intake Total 1107.5 / 1107.5 780 / 780 360 / 360 Output Total 1100 / 1100 1050 / 1050 650 / 650 Balance 7.5 / 7.5 -270 / -270 -290 / -290 Laboratory Results 09/26/19 16:13: POC Glucose 100 09/26/19 21:02: POC Glucose 134 H 09/27/19 06:35: POC Glucose 95 09/27/19 11:42: POC Glucose 148 H Current Medications Acetaminophen (Tylenol) 650 mg PO Q6H PRN PRN PRN Reason: Pain Score 1-10/Temp > 100.7 F Last Admin: 09/26/19 14:48 Dose: 650 mg Documented by: Amlodipine Besylate (Norvasc) 2.5 mg PO DAILY [facility] Last Admin: 09/27/19 11:34 Dose: 2.5 mg Documented by: Carvedilol (Coreg) 25 mg PO BID [facility] Last Admin: 07/16/20 11:34 Dose: 25 mg Documented by: Cholecalciferol (Vitamin D (25mcg)) 1,000 unit PO DAILY [facility] Last Admin: 09/27/19 11:34 Dose: 1,000 unit Documented by: Cyanocobalamin (Vitamin B12) 500 mcg PO DAILY [facility] Last Admin: 09/27/19 11:35 Dose: 500 mcg Documented by: Dextrose (D50w Syringe) 0 gm IV X1 PRN; Protocol PRN Reason: Hypoglycemia Ezetimibe (Zetia) 10 mg PO DAILY [facility] Last Admin: 09/27/19 11:34 Dose: 10 mg Documented by: Enoxaparin Sodium (Lovenox) 40 mg SC DAILY [facility] Last Admin: 09/27/19 11:34 Dose: 40 mg Documented by: Glucagon () 1 mg IM .X1 PRN PRN Reason: Hypoglycemia Insulin Human Lispro (Humalog Kwikpen (Bkc)) 0 unit SC ACHS [facility]; Protocol Last Admin: 09/27/19 11:43 Dose: Not Given Documented by: Levothyroxine Sodium (Synthroid) 112 mcg PO DAILY@0600 [facility] Last Admin: 09/27/19 05:21 Dose: 112 mcg Documented by: Lisinopril (Zestril) 40 mg PO DAILY [facility] Last Admin: 09/27/19 11:35 Dose: 40 mg Documented by: Meclizine HCl (Antivert) 12.5 mg PO BID PRN PRN PRN Reason: Vertigo Ondansetron HCl (Zofran) 4 mg IV Q8H PRN PRN PRN Reason: NAUSEA/VOMITING Sodium Chloride () 10 - 40 ml IV UD PRN PRN Reason: SALINE FLUSH Last Admin: 09/25/19 17:05 Dose: 10 ml Documented by: Tramadol HCl (Ultram) 50 mg PO BID [facility] Last Admin: 09/26/19 22:11 Dose: 50 mg Documented by: Inpatient E&M: [id number] Disch Hosp
--- NOTE | 2019-09-27 13:32 | CASEMGMT ---
Patient was approved to go to TCU. SW notified Nurse Practitioner, nurse, charge nurse, law secretary, and patient. Patient said she would notify family. Plan: [facility] TCU under skilled level of care. Ericka GRACE
[2019-09-27 14:11] VITALS: BP 114/56; PULSE 63; RESP 16; TEMP 36.3; O2SAT 99
[2019-09-27] MEDS: traMADol 50 MG Tablet PO (14:14)
== END 2019-09-27 13:05 | disposition skilled nursing facility (03) ==
LOC: ED 04:38 → PCU 04:49
PROVIDERS: Admitting Provider Internal Medicine; Emergency Provider Emergency Medicine; PCP Family Medicine; Visit Provider Internal Medicine
DX: H81.10 Benign paroxysmal vertigo, unspecified ear (principal); I10 Essential (primary) hypertension; E78.5 Hyperlipidemia, unspecified; E03.9 Hypothyroidism, unspecified; E11.51 Type 2 diabetes mellitus with diabetic peripheral angiopathy without gangrene; G89.29 Other chronic pain; R53.1 Weakness; I25.10 Atherosclerotic heart disease of native coronary artery without angina pectoris; R29.700 NIHSS score 0; R29.6 Repeated falls; I51.81 Takotsubo syndrome; M19.90 Unspecified osteoarthritis, unspecified site; J45.909 Unspecified asthma, uncomplicated; I25.2 Old myocardial infarction; Z79.4 Long term (current) use of insulin; Z79.899 Other long term (current) drug therapy; R00.2 Palpitations; I35.8 Other nonrheumatic aortic valve disorders; R29.810 Facial weakness
CPT/HCPCS: 36415; 70450; 70544; 70551; 71045; 72100; 73521; 80048; 80053; 80061; 82306; 82607; 82746; 82962; 83036; 84443; 84484; 85025; 85610; 85730; 87635; 92523; 93005; 93306; 94762; 96361; 96372; 96374; 97110; 97116; 97162; 97166; 97530; 97535; 97802; 99218; 99285; G2023; J7030; A4216; G0378; U0003

== ENCOUNTER 2019-09-27 16:24 | Inpatient (IN) | payer MEDICARE, SELFPAY ==
[2019-09-24 05:27] VITALS: BMI 22.8
[2019-09-27 16:42] VITALS: BP 183/97; PULSE 81; RESP 20; TEMP 37.3; O2SAT 96; BMI 23.1; BMI 23.2
[2019-09-27] MEDS: Acetaminophen 500 MG Tablet PO (18:02)
[2019-09-27] MEDS: Carvedilol 25 MG Tablet PO (18:02)
--- NOTE | 2019-09-27 21:09 | PCM.HP.STD ---
Problem List (1) Debility Status: Acute (2) Dizziness Status: Acute (3) Falls Status: Acute (4) Benign paroxysmal positional vertigo Status: Acute (5) Orthostatic hypotension Status: Acute (6) Diabetes mellitus Status: Chronic (7) Hypothyroidism Status: Chronic (8) Osteoporosis Status: Chronic (9) Vitamin B12 deficiency Status: Chronic (10) Hypertension Status: Chronic (11) HLD (hyperlipidemia) Status: Chronic Qualifiers: (12) Palpitations Status: Chronic History of Present Illness Date of Admission: 09/27/19 Chief Complaint: Here for rehabilitation, strengthening, vestibular therapy, prior to discharge home alone. 09/24/2019 The patient is a 84 year old Female with below past medical history presented to [facility] Emergency Department with Hypertension. 09/24/2019 CT brain chronic involutional changes of brain, partial empty sella syndrome, arachnoid cyst left middle cranial fossa, no mass effect. 09/24/2019 EKG normal sinus rhythm, normal EKG. 09/24/2019 Chest X-ray negative. 09/24/2019 MRI brain normal. 09/24/2019 MRA head normal. 09/24/2019 X-ray lumbar spine status post laminectomy, fusion L4-L5 level. 09/24/2019 X-ray pelvis bilateral hips, chronic changes. Patient concerned with stroke or heart attack. She had been dizzy for 9 days. Vertigo, first on right, then bilateral, worse with change in position. Bilateral leg weakness, positive for palpitations. Fell 2 times. Vertigo non-reproducible. Hypertension treated with labetalol with improvement. Labs negative, admit to hospital to rule out posterior circulation stroke. 09/24/2019 Admit to Hospital. PT/OT/ST evaluate and treat per plan of care. 09/24/2019 Teleneurology recommended checking orthostatic vital signs. Consider meclizine for vertigo. Consider vestibular rehabilitation. 09/24/2019 Echo Normal left ventricle size. Left ventricular systolic function normal. EF 65%. Stage 2 diastolic dysfunction. 09/25/2019 Vertigo secondary to benign paroxysmal positional vertigo and orthostatic hypotension. Stop hydrochlorothiazide, add ADIN hose. Stroke ruled out. 09/26/2019 PT for vestibular therapy. chronic back pain under control. 09/27/2019 Admit to TCU with debility, here for rehabilitation, strengthening, vestibular therapy prior to discharge home alone. Past Medical History Past Medical History (Chronic Problems): Chronic Problems (Last Reviewed 06/22/19 @ 10:[address] 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) Medical History: Medical History (Last Reviewed 06/22/19 @ 10:[address] 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 Other chest pain (Resolved) R07.89 Takotsubo cardiomyopathy I51.81 Allergies amoxicillin Allergy (Verified 07/27/19 08:29) Unknown Anesthetics - Amide Type Allergy (Verified 07/27/19 08:29) Unknown Anesthetics - Lizzette Type- Parabens [Anesthetics - Lizzette Type] Allergy (Verified 07/27/19 08:29) Unknown Sogpnfy-Qtb-Hql Reductase Inhibitor Allergy (Verified 07/27/19 08:29) Unknown Home Medications: Ambulatory Orders Medication Instructions Recorded Cholecalciferol (Vitamin D3) 1,000 unit PO DAILY 10/17/13 [Vitamin D3] ezetimibe 10 mg tablet 10 mg PO DAILY 12/15/17 acetaminophen 500 mg tablet 500 mg PO BID tab 06/19/18 Levothyroxine [Synthroid] 112 mcg PO DAILY@0600 05/08/19 Lisinopril 40 mg PO DAILY 05/08/19 Teriparatide [Forteo] 20 mcg SUBCUT DAILY 05/08/19 Tramadol HCl [Ultram] 50 mg PO BID 05/08/19 Cyanocobalamin (Vitamin B-12) 500 mcg PO DAILY 09/24/19 [Vitamin B-12] Amlodipine Besylate 2.5 mg PO DAILY 09/27/19 Carvedilol 25 mg PO BID 09/27/19 Meclizine HCl [Antivert] 12.5 mg PO BID PRN PRN tab 09/27/19 Surgical History: Surgical History (Last Reviewed 06/22/19 @ 10:[address] Pj Doll MD) History of back surgery Onset Date: ~2016 Z98.890 History of cholecystectomy Onset Date: ~2005 Z98.890, Z90.49 History of dilation and curettage Onset Date: ~1994 Z98.890 History of fractured pelvis Onset Date: ~2013 Z87.81 History of left heart catheterization (LHC) Onset Date: 03/2010 Z98.890 04/2000, 03/2010. History of right hip replacement Onset Date: ~2016 Z96.641 History of tonsillectomy Z98.890, Z90.89 Surgical History: cholecystectomy, total hip arthroplasty - Right., tonsillectomy, - - Nasal fracture, fracture of pelvis with plates, ORIF left hip, recent back surgery. Psychiatric History: No pertinent psych hx [employer] History: uterine fibroids Lives: Alone Smoking Status: Never smoker Tobacco Use: Non-smoker Alcohol: None Drugs: None - *Family History Paternal Family History: Family History (Last Reviewed 06/22/19 @ 10:[address] Pj Doll MD) Father Colon cancer Mother CHF (congestive heart failure) Brother Diabetes Sister CVA (cerebral vascular accident) Daughter Hypertension Daughter Thyroid disorder History Items: Diabetes, Heart Disease, Hypertension Maternal Family History: Family History (Last Reviewed 06/22/19 @ 10:[address] Pj Doll MD) Father Colon cancer Mother CHF (congestive heart failure) Brother Diabetes Sister CVA (cerebral vascular accident) Daughter Hypertension Daughter Thyroid disorder History Items: Diabetes, Heart Disease, Hypertension Review of Systems Constitutional: Reports: Weakness. Denies: Chills, Fever, Weight Change HEENT: Denies: Head Aches, Sinus Congestion, Sinus Drainage Cardiovascular: Denies: Chest Pain, Palpitations Respiratory: Denies: Cough, Shortness of breath at rest, Sputum production Gastrointestinal: Denies: Abdominal Pain, Nausea, Vomiting Genitourinary: Denies: Dysuria Musculoskeletal: Denies: Joint Pain, Joint Tenderness Skin: Denies: Rash, Wounds Neurological: Denies: Numbness, Tingling, Focal weakness Psychiatric: Denies: Anxiety, Depression, Homicidal Ideations, Suicidal Ideations Hematologic/ Lymphatic: Denies: Easy Bruising, Easy Bleeding VTE Information - Inpt Only VTE Present on Admission: No VTE Mechan Device Prophylaxis: Knee High ADIN Hose VTE Pharm Prophylaxis ordered?: Yes Patient Problems: Active and Suspected Problems (Last Reviewed 06/22/19 @ 10:[address] Pj Doll MD) Debility (Acute) Dizziness (Acute) Falls (Acute) Benign paroxysmal positional vertigo (Acute) Orthostatic hypotension (Acute) - Physical Exam Vitals/I&O's: Vital Signs Temp Pulse Resp BP Pulse Ox 99.1 F 81 20 H 183/97 H 96 09/27/19 16:42 09/27/19 16:42 09/27/19 16:42 09/27/19 16:42 09/27/19 16:42 Oxygen Delivery Method Room Air Weight: 61.2 kg Body Mass Index (BMI) 23.1 Finger Stick Blood Glucose 227 Intake and Output for Last 24 Hours 09/25/19 09/26/19 09/27/19 23:59 23:59 23:59 Intake Total 240 / 240 Balance 240 / 240 General: Alert, Oriented x3, Cooperative HEENT: Atraumatic, PERRLA, EOMI, Normocephalic Neck: Supple, No JVD, Negative Carotid Bruits Lungs: Clear to auscultation, Normal air movement Cardiovascular: Regular rate, No murmurs Abdomen: Bowel Sounds Present, Soft, Non Tender Extremities: Capillary Refill Less than 3 Seconds, Edema - 1+ pitting edema. Skin: No rashes, No breakdown Musculoskeletal: No Tenderness to Palpation of Joints or Extremities Neurological: Cranial nerves II-XII grossly intact Psych/Mental Status: Normal Affect, Appropriate Laboratory Results 09/27/19 19:30: COVID-19 (UNA) Pending Current Medications Acetaminophen (Tylenol) 500 mg PO BID [facility] Last Admin: 09/27/19 18:02 Dose: 500 mg Documented by: Amlodipine Besylate (Norvasc) 2.5 mg PO DAILY [facility] Carvedilol (Coreg) 25 mg PO BID [facility] Last Admin: 09/27/19 18:02 Dose: 25 mg Documented by: Ezetimibe (Zetia) 10 mg PO DAILY [facility] Levothyroxine Sodium (Synthroid) 112 mcg PO DAILY@0600 [facility] Lisinopril (Zestril) 40 mg PO DAILY [facility] Meclizine HCl (Antivert) 12.5 mg PO BID PRN PRN PRN Reason: Vertigo Teriparatide Acetate (Forteo) 20 mcg SQ DAILY [facility] Tramadol HCl (Ultram) 50 mg PO BID@0800,2000 [facility] Tuberculin PPD (Tubersol, Aplisol, Ppd) 5 tu ID X1 ONE Stop: 09/28/19 10:01 Tuberculin PPD (Tubersol, Aplisol, Ppd) 5 tu ID X1 ONE Stop: 10/05/19 10:01 Assessment/Plan All Active Problems (Last Reviewed 06/22/19 @ 10:[address] Pj Doll MD) Debility (Acute) Dizziness (Acute) Falls (Acute) Benign paroxysmal positional vertigo (Acute) Orthostatic hypotension (Acute) Vertigo (Acute) Other chest pain (Resolved) 84 year old female with below past medical history hospitalized for dizziness secondary to benign paroxysmal positional vertigo, orthostatic hypotension, posterior circulation stroke ruled out, admitted to TCU with debility, here for rehabilitation, strengthening, vestibular therapy, prior to discharge home alone. Debility - PT/OT. Pain - Tylenol 1000MG TID, Tramadol 50MG BID. Bowel - Miralax 17GM daily, Senna/colace 1 tablet BID, Dulcolax 10MG LA daily PRN. Adult immunization - Administer Prevnar 13, Pneumovax 23, Fluzone as appropriate. DVT prophylaxis - Lovenox 40MG SC daily. Hypertension - Coreg 25MG BID, Lisinopril 40MG daily, Amlodipine 2.5MG daily. Hyperlipidemia - Zetia 10MG daily, Statins intolerable. Hypothyroidism - Levothyroxine 112MCG daily. Dizziness - Meclizine 12.5MG BID PRN.
[2019-09-27] MEDS: traMADol 50 MG Tablet PO (21:31)
[2019-09-27] MEDS: Acetaminophen 500 MG Tablet 1000 MG PO (23:42)
[2019-09-28 05:45] LABS: Absolute Lymphocyte Count 1.74 X10^3/uL (0.83-4.51); Absolute Neutrophil Count 3.3 X10^3/uL (2.0-7.7); Basophil# 0.04 X10^3/uL; Basophil% 0.7 % (0-1); Eosinophil# 0.14 X10^3/uL; Eosinophils% 2.4 % (0-5); Hematocrit 39.3 % (37-47); Hemoglobin 12.5 g/dL (12.0-15.0); Lymphocyte # 1.74 X10^3/ul (4.0); Mean Corp Hgb Conc 31.8 g/dL (32-36); Mean Corpuscular Hgb 28.9 pg (27.0-32.0); Mean Corpuscular Volume 90.8 fL (81-99); Mean Platelet Vol. 8.7 fl (6.2-12.0); Monocyte# 0.59 X10^3/uL; Monocyte% 10.2 % (0-10); NRBC Flagged by Analyzer 0 % (0-5); Neutrophil # 3.28 X10^3/uL (2.7-7.7); Neutrophil % 56.5 % (47-70); Platelet Count 276 K/mm3 (150-450); RBC Distribution Width CV 12.7 % (11.6-14.6); RBC Distribution Width SD 41.6 fl (35.1-43.9); Red Blood Count 4.33 M/mm3 (4.2-5.4); White Blood Count 5.8 K/mm3 (4.4-11.0)
[2019-09-28 06:05] LABS: Anion Gap 3 (5-15); BUN 23 mg/dL (7-18); Calcium,Total 9.3 mg/dL (8.5-10.1); Chloride 105 mmol/L (98-107); Creatinine, Serum 0.34 mg/dL (0.55-1.02); EST Glomerular Filtration Rate 197 mL/min (>60); Est Glom Filt Rate - Afr Amer 238 mL/min (>60); Estimated Creatinine Clearance 37.45 ml/min; Glucose 90 mg/dL (74-106); Potassium 3.7 mmol/L (3.5-5.1); Sodium Level 139 mmol/L (136-145)
[2019-09-28] MEDS: Enoxaparin 40 MG/0.4 ML Syringe SC (06:24)
[2019-09-28] MEDS: amLODIPine 2.5 MG Tablet PO (06:24)
[2019-09-28] MEDS: Carvedilol 25 MG Tablet PO ×2 (06:25→17:19)
[2019-09-28] MEDS: Acetaminophen 500 MG Tablet 1000 MG PO ×3 (06:25→21:33)
[2019-09-28] MEDS: Senna/Docusate Sodium 1 Tablet PO ×2 (06:25→17:19)
[2019-09-28] MEDS: Lisinopril 40 MG Tablet PO (06:25)
[2019-09-28] MEDS: Levothyroxine 112 MCG Tablet PO (06:25)
[2019-09-28] MEDS: Ezetimibe 10 MG Tablet PO (06:25)
[2019-09-28 06:30] LABS: Bedside Glucose 93 mg/dL (70-110)
[2019-09-28 06:33] VITALS: BP 146/77; PULSE 60; RESP 16; TEMP 36.3; O2SAT 94
[2019-09-28] MEDS: traMADol 50 MG Tablet PO ×2 (08:20→20:02)
--- NOTE | 2019-09-28 10:54 | PHA.CONS_ITS ---
<Aracely Romero M - Last Filed: 09/28/19 10:54> Progress Note - Pharmacy Subjective: TCU ADMISSION Objective: Allergies amoxicillin Allergy (Verified 07/27/19 08:29) Unknown Anesthetics - Amide Type Allergy (Verified 07/27/19 08:29) Unknown Anesthetics - Lizzette Type- Parabens [Anesthetics - Lizzette Type] Allergy (Verified 07/27/19 08:29) Unknown Wtxzgcg-[id number]-Kqu Reductase Inhibitor Allergy (Verified 07/27/19 08:29) Unknown Current Medications Generic Name Dose Route Start Last Admin Trade Name Freq PRN Reason Stop Dose Admin Acetaminophen 1,000 mg 09/27/19 22:00 09/28/19 06:25 Tylenol PO 1,000 mg TID [facility] Administration Amlodipine Besylate 2.5 mg 09/28/19 06:00 09/28/19 06:24 Norvasc PO 2.5 mg DAILY [facility] Administration Bisacodyl 10 mg 09/27/19 21:26 Dulcolax RECTAL DAILY PRN Constipation Carvedilol 25 mg 09/27/19 18:00 09/28/19 06:25 Coreg PO 25 mg BID [place] Administration Ezetimibe 10 mg 09/28/19 06:00 09/28/19 06:25 Zetia PO 10 mg DAILY [place] Administration Enoxaparin Sodium 40 mg 09/28/19 06:00 09/28/19 06:24 Lovenox SC 40 mg DAILY@0600 [place] Administration Levothyroxine Sodium 112 mcg 09/28/19 06:00 09/28/19 06:25 Synthroid PO 112 mcg DAILY@0600 [place] Administration Lisinopril 40 mg 09/28/19 06:00 09/28/19 06:25 Zestril PO 40 mg DAILY [place] Administration Meclizine HCl 12.5 mg 09/27/19 16:55 Antivert PO BID PRN PRN Vertigo Polyethylene Glycol 17 gm 09/28/19 06:00 09/28/19 06:24 Miralax PO Not Given DAILY [facility] Senna/Docusate Sodium 1 tablet 09/28/19 06:00 09/28/19 06:25 Senokot-S, An-Colace PO 1 tablet BID [place] Administration Tramadol HCl 50 mg 09/27/19 20:00 09/28/19 08:20 Ultram PO 50 mg BID@0800,1999 [place] Administration Tuberculin PPD 5 tu 10/05/19 10:00 Tubersol, Aplisol, Ppd ID 10/05/19 10:01 X1 ONE Problem List (Last Reviewed 06/22/19 @ 10:[address] Pj Doll MD) Debility (Acute) Dizziness (Acute) Falls (Acute) Benign paroxysmal positional vertigo (Acute) Orthostatic hypotension (Acute) Diabetes mellitus (Chronic) Hypothyroidism (Chronic) Osteoporosis (Chronic) Vitamin B12 deficiency (Chronic) Vital Signs Temp Pulse Resp BP Pulse Ox 97.4 F L 60 16 146/77 H 94 09/28/19 06:33 09/28/19 06:33 09/28/19 06:33 09/28/19 06:33 09/28/19 06:33 Oxygen Delivery Method Room Air Weight: 61.2 kg Body Mass Index (BMI) 23.1 Finger Stick Blood Glucose 227 Sodium 139 mmol/L (136-145) 09/28/19 05:35 Potassium 3.7 mmol/L (3.5-5.1) 09/28/19 05:35 Chloride 105 mmol/L (98-107) 09/28/19 05:35 Carbon Dioxide 31.0 mmol/L (21.0-32.0) 09/28/19 05:35 Anion Gap 3 (5-15) L 09/28/19 05:35 BUN 23 mg/dL (7-18) H 09/28/19 05:35 Creatinine 0.34 mg/dL (0.55-1.02) L 09/28/19 05:35 Est GFR (MDRD) Af Amer 238 mL/min (>60) 09/28/19 05:35 Est GFR (MDRD) Non-Af 197 mL/min (>60) 09/28/19 05:35 BUN/Creatinine Ratio 68.0 RATIO (10-20) H 09/28/19 05:35 Glucose 90 mg/dL (74-106) 09/28/19 05:35 Assessment/Plan: 1. Pain: Tylenol 1000mg PO TID, Trmadol 50mg PO BID. Please continue to monitor for increased/decreased pain, renal function while patient getting tramadol. 2. Hypertension: Coreg 25mg PO BID, Amlodipine 2.5mg PO Daily, Lisinopril 40mg PO Daily. Please continue to monitor BP, pulse, electrolytes, renal function. 3. Hyperlipidemia: Zetia 10mg PO Daily. Please continue to monitor lipid panel at least annually or sooner if clinically indicated. 4. Hypothyroid: Synthroid 112mcg PO Daily. Please continue to monitor for S/S hyper/hypothyroidism, Thyroid testing as clinically indicated. *5. Dizziness: Meclizine 12.5mg PO BID PRN. This is a Beer's Criteria medication, please evaluate use. Monitor for S/S increased anticholinergic effects since pt is considered advanced age, thank you 6. DVT Prophylaxis: Lovenox 40mg SC Daily. Please continue to monitor renal function. S/S bleeding/bruising. Psychotropic Medications: None Unnecessary Medications: None Bowel Regimen: Miralax 17g PO Daily, Senna/Docusate 1 tab PO BID, Dulcolax 10mg rectal daily PRN. Please continue to monitor for increased/decreased bowel movements, PRN medication use. Date of Note:: 09/28/19 - Provider Comments Provider responsibility: Provider responsible to enter orders to implement recom mendations <Dennis Ayala Chi - Last Filed: 09/28/19 13:04> Progress Note - Pharmacy Subjective: [] Objective: Allergies amoxicillin Allergy (Verified 07/27/19 08:29) Unknown Anesthetics - Amide Type Allergy (Verified 07/27/19 08:29) Unknown Anesthetics - Lizzette Type- Parabens [Anesthetics - Lizzette Type] Allergy (Verified 07/27/19 08:29) Unknown Urogycg-Qft-Qfn Reductase Inhibitor Allergy (Verified 07/27/19 08:29) Unknown Current Medications Generic Name Dose Route Start Last Admin Trade Name Freq PRN Reason Stop Dose Admin Acetaminophen 1,000 mg 09/27/19 22:00 09/28/19 13:02 Tylenol PO 1,000 mg TID [place] Administration Amlodipine Besylate 2.5 mg 09/28/19 06:00 09/28/19 06:24 Norvasc PO 2.5 mg DAILY [place] Administration Bisacodyl 10 mg 09/27/19 21:26 Dulcolax RECTAL DAILY PRN Constipation Calamine/Phenol 1 applic 09/28/19 22:00 Calmoseptine Ointment TOPICAL BID@0600,2200 [facility] Protocol Carvedilol 25 mg 09/27/19 18:00 09/28/19 06:25 Coreg PO 25 mg BID [place] Administration Ezetimibe 10 mg 09/28/19 06:00 09/28/19 06:25 Zetia PO 10 mg DAILY [place] Administration Emollient Ointment 1 applic 09/28/19 22:00 Eucerin Intensive Repair TOPICAL BID@0600,2200 [facility] Protocol Enoxaparin Sodium 40 mg 09/28/19 06:00 09/28/19 06:24 Lovenox SC 40 mg DAILY@0600 [facility] Administration Levothyroxine Sodium 112 mcg 09/28/19 06:00 09/28/19 06:25 Synthroid PO 112 mcg DAILY@0600 [place] Administration Lisinopril 40 mg 09/28/19 06:00 09/28/19 06:25 Zestril PO 40 mg DAILY [facility] Administration Meclizine HCl 12.5 mg 09/27/19 16:55 Antivert PO BID PRN PRN Vertigo Polyethylene Glycol 17 gm 09/28/19 06:00 09/28/19 06:24 Miralax PO Not Given DAILY [facility] Senna/Docusate Sodium 1 tablet 09/28/19 06:00 09/28/19 06:25 Senokot-S, An-Colace PO 1 tablet BID [facility] Administration Tramadol HCl 50 mg 09/27/19 20:00 09/28/19 08:20 Ultram PO 50 mg BID@0800,1999 [facility] Administration Tuberculin PPD 5 tu 10/05/19 10:00 Tubersol, Aplisol, Ppd ID 10/05/19 10:01 X1 ONE Problem List (Last Reviewed 06/22/19 @ 10:[address] Pj Doll MD) Debility (Acute) Dizziness (Acute) Falls (Acute) Benign paroxysmal positional vertigo (Acute) Orthostatic hypotension (Acute) Diabetes mellitus (Chronic) Hypothyroidism (Chronic) Osteoporosis (Chronic) Vitamin B12 deficiency (Chronic) Vital Signs Temp Pulse Resp BP Pulse Ox 97.4 F L 60 16 146/77 H 94 09/28/19 06:33 09/28/19 06:33 09/28/19 06:33 09/28/19 06:33 09/28/19 06:33 Oxygen Delivery Method Room Air Weight: 61.2 kg Body Mass Index (BMI) 23.1 Finger Stick Blood Glucose 227 Sodium 139 mmol/L (136-145) 09/28/19 05:35 Potassium 3.7 mmol/L (3.5-5.1) 09/28/19 05:35 Chloride 105 mmol/L (98-107) 09/28/19 05:35 Carbon Dioxide 31.0 mmol/L (21.0-32.0) 09/28/19 05:35 Anion Gap 3 (5-15) L 09/28/19 05:35 BUN 23 mg/dL (7-18) H 09/28/19 05:35 Creatinine 0.34 mg/dL (0.55-1.02) L 09/28/19 05:35 Est GFR (MDRD) Af Amer 238 mL/min (>60) 09/28/19 05:35 Est GFR (MDRD) Non-Af 197 mL/min (>60) 09/28/19 05:35 BUN/Creatinine Ratio 68.0 RATIO (10-20) H 09/28/19 05:35 Glucose 90 mg/dL (74-106) 09/28/19 05:35 Assessment/Plan: Psychotropic Medications: Unnecessary Medications: Bowel Regimen: - Provider Comments Provider responsibility: Provider responsible to enter orders to implement recommendations Provider Comments to Recommendations by Pharmacy: Agree
[2019-09-28] MEDS: Tuberculin,Purif.prot.deriv. 50 TU/ML Vial 5 ML ID (11:15)
--- NOTE | 2019-09-28 11:37 | CASEMGMT ---
Social Work Discussed code status with pt. Pt confirmed full code. MOLST form completed. Pt requested information on Palliative Medicine. Explained services. Pt requested a referral. Referral made to [facility]. Will continue to follow. SANJAY MooreW
[2019-09-28 14:07] VITALS: BP 147/89; PULSE 67; RESP 17; TEMP 36.4; O2SAT 92
[2019-09-28] MEDS: Menthol/Lanolin/Calamine/Znox 113 GM Tube 1 APPLIC TOPICAL (20:11)
--- NOTE | 2019-09-28 21:36 | PCA ---
SERVICE CENTER MANAGER offered to get patient washed up for the night and patient stated not tonight Patient is an ADL in the morning with therapy. Nurse aware.
[2019-09-29 05:29] VITALS: BP 144/73; PULSE 59; RESP 16; TEMP 36.6; O2SAT 97
[2019-09-29] MEDS: amLODIPine 2.5 MG Tablet PO (05:30)
[2019-09-29] MEDS: Enoxaparin 40 MG/0.4 ML Syringe SC (05:30)
[2019-09-29] MEDS: Lisinopril 40 MG Tablet PO (05:30)
[2019-09-29] MEDS: Ezetimibe 10 MG Tablet PO (05:31)
[2019-09-29] MEDS: Senna/Docusate Sodium 1 Tablet PO ×2 (05:31→18:03)
[2019-09-29] MEDS: Carvedilol 25 MG Tablet PO ×2 (05:31→18:03)
[2019-09-29] MEDS: Levothyroxine 112 MCG Tablet PO (05:31)
[2019-09-29] MEDS: Acetaminophen 500 MG Tablet 1000 MG PO ×3 (05:31→21:08)
[2019-09-29] MEDS: Menthol/Lanolin/Calamine/Znox 113 GM Tube 1 APPLIC TOPICAL ×2 (05:33→21:10)
[2019-09-29 06:26] LABS: Bedside Glucose 102 mg/dL (70-110)
[2019-09-29] MEDS: traMADol 50 MG Tablet PO ×2 (08:32→22:57)
[2019-09-29 13:27] VITALS: PULSE 63; RESP 16
[2019-09-29 14:13] VITALS: BP 122/70; PULSE 63; RESP 16; TEMP 36.6; O2SAT 97
[2019-09-30] MEDS: Enoxaparin 40 MG/0.4 ML Syringe SC (04:53)
[2019-09-30] MEDS: Carvedilol 25 MG Tablet PO ×2 (04:54→16:53)
[2019-09-30] MEDS: Lisinopril 40 MG Tablet PO (04:54)
[2019-09-30] MEDS: Levothyroxine 112 MCG Tablet PO (04:54)
[2019-09-30] MEDS: Senna/Docusate Sodium 1 Tablet PO ×2 (04:54→16:53)
[2019-09-30] MEDS: amLODIPine 2.5 MG Tablet PO (04:54)
[2019-09-30] MEDS: Menthol/Lanolin/Calamine/Znox 113 GM Tube 1 APPLIC TOPICAL ×2 (05:03→20:52)
[2019-09-30 05:05] VITALS: BP 164/75; PULSE 61; RESP 15; TEMP 36.6; O2SAT 96
[2019-09-30] MEDS: Ezetimibe 10 MG Tablet PO (07:10)
[2019-09-30] MEDS: traMADol 50 MG Tablet PO ×2 (08:49→20:52)
[2019-09-30] MEDS: Acetaminophen 500 MG Tablet 1000 MG PO (13:03)
[2019-09-30 14:46] VITALS: BP 113/52; PULSE 52; RESP 15; TEMP 36.6; O2SAT 98
[2019-09-30 16:52] VITALS: PULSE 60
[2019-09-30 17:03] LABS: Bedside Glucose 84 mg/dL (70-110)
[2019-10-01 04:42] VITALS: BP 150/62; PULSE 60; RESP 16; TEMP 36.3; O2SAT 96
[2019-10-01] MEDS: Acetaminophen 500 MG Tablet 1000 MG PO ×2 (04:44→13:20)
[2019-10-01] MEDS: Ezetimibe 10 MG Tablet PO (04:45)
[2019-10-01] MEDS: amLODIPine 2.5 MG Tablet PO (04:45)
[2019-10-01] MEDS: Levothyroxine 112 MCG Tablet PO (04:45)
[2019-10-01] MEDS: Enoxaparin 40 MG/0.4 ML Syringe SC (04:45)
[2019-10-01] MEDS: Senna/Docusate Sodium 1 Tablet PO ×2 (04:45→16:39)
[2019-10-01] MEDS: Carvedilol 25 MG Tablet PO ×2 (04:45→16:39)
[2019-10-01] MEDS: Lisinopril 40 MG Tablet PO (04:45)
[2019-10-01] MEDS: Menthol/Lanolin/Calamine/Znox 113 GM Tube 1 APPLIC TOPICAL ×2 (04:52→20:59)
[2019-10-01 06:26] LABS: Bedside Glucose 72 mg/dL (70-110)
[2019-10-01] MEDS: traMADol 50 MG Tablet PO ×2 (08:41→20:58)
[2019-10-01 12:52] VITALS: PULSE 77; RESP 16; O2SAT 95
[2019-10-01 15:30] VITALS: BP 122/64; PULSE 77; RESP 16; TEMP 36.8; O2SAT 95
[2019-10-02 06:35] LABS: Bedside Glucose 95 mg/dL (70-110)
[2019-10-02 06:46] VITALS: BP 153/87; PULSE 64; RESP 16; TEMP 36.2; O2SAT 94
[2019-10-02] MEDS: Enoxaparin 40 MG/0.4 ML Syringe SC (06:49)
[2019-10-02] MEDS: Acetaminophen 500 MG Tablet 1000 MG PO ×2 (06:49→20:35)
[2019-10-02] MEDS: Ezetimibe 10 MG Tablet PO (06:49)
[2019-10-02] MEDS: Carvedilol 25 MG Tablet PO ×2 (06:49→17:14)
[2019-10-02] MEDS: amLODIPine 2.5 MG Tablet PO (06:49)
[2019-10-02] MEDS: Levothyroxine 112 MCG Tablet PO (06:49)
[2019-10-02] MEDS: Senna/Docusate Sodium 1 Tablet PO ×2 (06:49→17:14)
[2019-10-02] MEDS: Lisinopril 40 MG Tablet PO (06:51)
[2019-10-02] MEDS: Menthol/Lanolin/Calamine/Znox 113 GM Tube 1 APPLIC TOPICAL ×2 (06:56→20:43)
--- NOTE | 2019-10-02 08:37 | NURSING ---
pt refused ultram at this time saying i already took too many pills and i feel sick.
[2019-10-02 14:32] VITALS: BP 78/54; PULSE 77; RESP 17; TEMP 36.3; O2SAT 98
[2019-10-02 15:20] VITALS: BP 101/64
[2019-10-02] MEDS: traMADol 50 MG Tablet PO (20:34)
[2019-10-03 05:07] VITALS: BP 154/80; PULSE 69; RESP 16; TEMP 37.1; O2SAT 97
[2019-10-03] MEDS: Levothyroxine 112 MCG Tablet PO (05:11)
[2019-10-03 06:36] LABS: Bedside Glucose 95 mg/dL (70-110)
[2019-10-03] MEDS: Lisinopril 40 MG Tablet PO (08:12)
[2019-10-03] MEDS: Enoxaparin 40 MG/0.4 ML Syringe SC (08:12)
[2019-10-03] MEDS: Ezetimibe 10 MG Tablet PO (08:12)
[2019-10-03] MEDS: Carvedilol 25 MG Tablet PO ×2 (08:12→20:21)
[2019-10-03] MEDS: amLODIPine 2.5 MG Tablet PO (08:13)
[2019-10-03] MEDS: Menthol/Lanolin/Calamine/Znox 113 GM Tube 1 APPLIC TOPICAL ×2 (08:14→20:28)
[2019-10-03] MEDS: Senna/Docusate Sodium 1 Tablet PO (08:18)
--- NOTE | 2019-10-03 11:19 | CASEMGMT ---
Social Work IDT met with patient and daughter via conference call for care plan meeting. Discussed patient's progress in therapy. Pt is SBA for bed mobility, CGA for transfers and sit to stands with FWW, Obdulia for ambulating 100 ft wit hFWW, although dizzy at times. pt is using 3# wts for seated LE exercises. Pt is super vision for grooming, min A for bathing, SBA for UE dressing, maxA for LE dressing, mod A for toileting and CGA for toilet transfers. Pt is on a cardiac diet, getting meat cut up and intake 75-100%. Pt is out of room isolation 10/10 and has Purewick at night. Explained [employer] NRD 10/04 and continued stay is not guaranteed. Discussed pt having difficulty with morning routine at home. Explained nonskilled HHC agencies. Explained other options for the future, per dtr request, [place], SNF, [facility] and private pay pricing. Emailed list of all resources to dtr. Will continue to follow. Amy Paz MSW FIRST RESPONDER
[2019-10-03] MEDS: traMADol 50 MG Tablet PO ×2 (13:30→20:21)
[2019-10-03 13:35] VITALS: PULSE 76; RESP 16; O2SAT 96
[2019-10-03 15:09] VITALS: BP 112/64; PULSE 76; RESP 16; TEMP 36.4; O2SAT 96
[2019-10-04 02:54] VITALS: BP 155/77; PULSE 67; RESP 16; TEMP 36.5; O2SAT 98
[2019-10-04 06:32] LABS: Bedside Glucose 100 mg/dL (70-110)
[2019-10-04] MEDS: Levothyroxine 112 MCG Tablet PO (06:52)
[2019-10-04] MEDS: Enoxaparin 40 MG/0.4 ML Syringe SC (08:29)
[2019-10-04] MEDS: Carvedilol 25 MG Tablet PO ×2 (08:29→20:40)
[2019-10-04] MEDS: Senna/Docusate Sodium 1 Tablet PO (08:29)
[2019-10-04] MEDS: Menthol/Lanolin/Calamine/Znox 113 GM Tube 1 APPLIC TOPICAL ×2 (08:32→20:40)
[2019-10-04] MEDS: traMADol 50 MG Tablet PO ×2 (10:28→20:40)
[2019-10-04] MEDS: amLODIPine 2.5 MG Tablet PO (12:40)
[2019-10-04] MEDS: Ezetimibe 10 MG Tablet PO (12:40)
[2019-10-04 12:48] VITALS: PULSE 72; RESP 16; O2SAT 93
[2019-10-04 14:18] VITALS: BP 90/50; PULSE 72; RESP 16; TEMP 36.6; O2SAT 93
[2019-10-05] MEDS: Levothyroxine 112 MCG Tablet PO (04:19)
[2019-10-05 04:23] VITALS: BP 155/81; PULSE 58; RESP 18; TEMP 36.3; O2SAT 97
[2019-10-05 05:50] LABS: Absolute Neutrophil Count 2.6 X10^3/uL (2.0-7.7); Basophil# 0.04 X10^3/uL; Basophil% 0.8 % (0-1); Eosinophil# 0.13 X10^3/uL; Eosinophils% 2.6 % (0-5); Hematocrit 35.5 % (37-47); Hemoglobin 11.5 g/dL (12.0-15.0); Lymphocyte % 33.5 % (19-41); Mean Corp Hgb Conc 32.4 g/dL (32-36); Mean Corpuscular Hgb 29.3 pg (27.0-32.0); Mean Corpuscular Volume 90.3 fL (81-99); Mean Platelet Vol. 9.3 fl (6.2-12.0); Monocyte# 0.58 X10^3/uL; Monocyte% 11.4 % (0-10); NRBC Flagged by Analyzer 0 % (0-5); Neutrophil % 51.3 % (47-70); Platelet Count 292 K/mm3 (150-450); RBC Distribution Width SD 42.4 fl (35.1-43.9); Red Blood Count 3.93 M/mm3 (4.2-5.4); White Blood Count 5.1 K/mm3 (4.4-11.0)
[2019-10-05 06:16] LABS: Anion Gap 3 (5-15); BUN 30 mg/dL (7-18); Calcium,Total 9.1 mg/dL (8.5-10.1); Chloride 107 mmol/L (98-107); Creatinine, Serum 0.44 mg/dL (0.55-1.02); EST Glomerular Filtration Rate 147 mL/min (>60); Est Glom Filt Rate - Afr Amer 178 mL/min (>60); Estimated Creatinine Clearance 37.45 ml/min; Glucose 85 mg/dL (74-106); Potassium 3.8 mmol/L (3.5-5.1); Sodium Level 138 mmol/L (136-145)
[2019-10-05] MEDS: Carvedilol 25 MG Tablet PO ×2 (08:14→20:11)
[2019-10-05] MEDS: Enoxaparin 40 MG/0.4 ML Syringe SC (08:15)
[2019-10-05] MEDS: Senna/Docusate Sodium 1 Tablet PO (08:15)
[2019-10-05] MEDS: Menthol/Lanolin/Calamine/Znox 113 GM Tube 1 APPLIC TOPICAL ×2 (08:16→20:12)
[2019-10-05] MEDS: traMADol 50 MG Tablet PO ×2 (10:09→20:11)
[2019-10-05] MEDS: Tuberculin,Purif.prot.deriv. 50 TU/ML Vial 5 ML ID (10:19)
[2019-10-05] MEDS: Ezetimibe 10 MG Tablet PO (11:49)
[2019-10-05] MEDS: Lisinopril 40 MG Tablet 20 MG PO (11:49)
[2019-10-05 14:02] VITALS: BP 126/62; PULSE 71; RESP 16; TEMP 37.2; O2SAT 100
[2019-10-05 20:13] VITALS: PULSE 71
[2019-10-06 05:07] VITALS: BP 128/66; PULSE 61; RESP 16; TEMP 35.9; O2SAT 94
[2019-10-06] MEDS: Levothyroxine 112 MCG Tablet PO (05:11)
[2019-10-06 06:41] LABS: Bedside Glucose 89 mg/dL (70-110)
[2019-10-06] MEDS: Enoxaparin 40 MG/0.4 ML Syringe SC (08:25)
[2019-10-06] MEDS: Senna/Docusate Sodium 1 Tablet PO (08:25)
[2019-10-06] MEDS: Carvedilol 25 MG Tablet PO ×2 (08:26→20:21)
[2019-10-06] MEDS: Menthol/Lanolin/Calamine/Znox 113 GM Tube 1 APPLIC TOPICAL ×2 (08:27→20:22)
[2019-10-06] MEDS: traMADol 50 MG Tablet PO ×2 (10:45→20:19)
[2019-10-06] MEDS: Lisinopril 40 MG Tablet 20 MG PO (11:29)
[2019-10-06] MEDS: Ezetimibe 10 MG Tablet PO (11:29)
[2019-10-06 11:32] VITALS: PULSE 64; RESP 16; O2SAT 96
[2019-10-06 16:10] VITALS: BP 112/60; PULSE 64; RESP 16; TEMP 36.2; O2SAT 96
[2019-10-07 05:37] VITALS: BP 155/77; PULSE 69; RESP 16; TEMP 36.6; O2SAT 98
[2019-10-07] MEDS: Levothyroxine 112 MCG Tablet PO (05:39)
[2019-10-07 06:31] LABS: Bedside Glucose 82 mg/dL (70-110)
[2019-10-07] MEDS: Carvedilol 25 MG Tablet PO ×2 (08:23→21:12)
[2019-10-07] MEDS: Senna/Docusate Sodium 1 Tablet PO (08:24)
[2019-10-07] MEDS: Enoxaparin 40 MG/0.4 ML Syringe SC (08:24)
[2019-10-07] MEDS: Menthol/Lanolin/Calamine/Znox 113 GM Tube 1 APPLIC TOPICAL (08:30)
[2019-10-07] MEDS: traMADol 50 MG Tablet PO ×2 (10:24→21:12)
[2019-10-07] MEDS: Lisinopril 40 MG Tablet 20 MG PO (12:45)
[2019-10-07] MEDS: Ezetimibe 10 MG Tablet PO (12:46)
[2019-10-07 12:54] VITALS: PULSE 71; RESP 16; O2SAT 96
[2019-10-07 14:08] VITALS: BP 128/64; PULSE 71; RESP 18; TEMP 37; O2SAT 95
[2019-10-08 04:00] VITALS: BP 133/68; PULSE 60; RESP 16; TEMP 36.7; O2SAT 96
[2019-10-08] MEDS: Levothyroxine 112 MCG Tablet PO (04:56)
[2019-10-08 06:20] LABS: Bedside Glucose 93 mg/dL (70-110)
[2019-10-08] MEDS: Enoxaparin 40 MG/0.4 ML Syringe SC (08:31)
[2019-10-08] MEDS: Senna/Docusate Sodium 1 Tablet PO (08:32)
[2019-10-08] MEDS: Carvedilol 25 MG Tablet PO ×2 (08:32→19:34)
[2019-10-08] MEDS: Menthol/Lanolin/Calamine/Znox 113 GM Tube 1 APPLIC TOPICAL ×2 (08:34→19:34)
--- NOTE | 2019-10-08 09:20 | MDS.RN ---
Information for the mds was obtained from review of the clinical record, interview of resident, staff, and direct observation of resident's care.
[2019-10-08] MEDS: traMADol 50 MG Tablet PO ×2 (09:54→19:34)
[2019-10-08] MEDS: Ezetimibe 10 MG Tablet PO (10:55)
[2019-10-08] MEDS: Lisinopril 40 MG Tablet 20 MG PO (10:55)
--- NOTE | 2019-10-08 11:20 | NURSING ---
pt c/o urinary frequency and itching in radha area. expressed that she showers daily at home & has not been doing as much here. Dr Ayala updated, new order for UA & culture.
--- NOTE | 2019-10-08 11:50 | NURSING ---
R' C/O BURNING/ITCHING/DRIBBLING/FREQUENCY WITH URINATION. Myrna LONG RN RECEIVED N.O. FOR UA C+S. OBTAINED AT THIS TIME BY STRAIGHT CATH. CATH'D FOR 100CC CLEAR, YELLOW URINE. R' TOLERATED WELL.
[2019-10-08 12:20] LABS: Mucous, Urine 0 SEEN /hpf (<or=2+); Red Blood Cells-Urine 0 SEEN /hpf (0-5); Squamous Epithelial Cells - UA 0 SEEN /hpf (5-10)
[2019-10-08 12:23] LABS: Color, Urine Straw (Yellow); Glucose, Dipstick Normal (Normal); Ketone-Dipstick Negative (Negative); Leukocyte Esterase-Dipstick Negative /ul (Negative); Nitrite-Dipstick Negative (Negative); Occult Blood-Urine Negative /ul (Negative); Protein-Dipstick Negative (Negative); Urine Bilirubin Dipstick Negative (Negative); Urine Clarity Clear (Clear); Urine Urobilinogen Normal (Normal); Urine pH 6.5 (5.0 - 8.0)
[2019-10-08 12:29] LABS: Bacteria 1+ /hpf (None Seen); Hyaline Cast 0-5 SEEN /lpf (0-5); White Blood Cells 0-5 SEEN /hpf (0-5)
[2019-10-08 14:02] VITALS: BP 148/77
--- NOTE | 2019-10-08 14:06 | NURSING ---
CHANNEL WORKER REPORTED LOW BP. R' IN CHAIR AFTER THERAPY. BP 81/44. PROVIDED WATER AND ASSISTED BACK INTO BED X2 FOR SAFETY. AFTER FLUIDS AND REST, BP WAS RETAKEN- 148/71. R' STATES SHE FEELS BETTER ONCE IN BED. ENCOURAGED HER TO CONT' FLUIDS. WILL MONITOR.
[2019-10-08 14:45] VITALS: PULSE 103; RESP 18; TEMP 36.9; O2SAT 98
--- NOTE | 2019-10-08 15:09 | NURSING ---
THERAPY COMPLETED ORTHOSTATIC BP'S. 170/65 LAYING, 148/78 SITTING AND 159/71 STANDING.
[2019-10-08 16:30] VITALS: BP 131/73; PULSE 69
--- NOTE | 2019-10-08 16:43 | CASEMGMT ---
Social Work NOMNC issued. SW met with pt and explained LCD 10/09 with d/c or private pay to start 10/10. At this time pt wishes to appeal decision. Pt is understanding that if discontinuation of stay is not overturned d/c will be on 10/10. Pt plans to return home alone at time of discharge and is agreeable to home health PT/OT. Referral has been made to palliative medicine previously and they will be notified of d/c date. Pt will need wheeled walker. Pt states family lives close and son checks in on her but she will be alone throughout the day and night. Pt feels she would benefit from continued therapy at skilled level prior to return home. SW will continue to follow for d/c planning and support. LASHELL García
--- NOTE | 2019-10-08 18:02 | NURSING ---
DR. EISENBERG AWARE OF . NO N.O. CULTURE PENDING.
--- NOTE | 2019-10-08 21:15 | DCINST_ITS ---
- Discharge Diagnoses Current Active Problems: Current Active and Chronic Problems (Last Reviewed 06/22/19 @ 10:[address] Pj Doll MD) Debility (Acute) Dizziness (Acute) Falls (Acute) Benign paroxysmal positional vertigo (Acute) Orthostatic hypotension (Acute) Diabetes mellitus (Chronic) Hypothyroidism (Chronic) Osteoporosis (Chronic) Vitamin B12 deficiency (Chronic) You will use the following diet at home:: No restrictions, Regular Your food should be the consistency of: Regular Your liquids should be the consistency of: Regular/Thin Discharge Activity: Return to Normal Activity, May Shower, Use Walker Weight Bearing Status: Weight bearing as tolerated Call your doctor if you observe: Fever of 101 or Higher, Inability to urinate, Inability to have a bowel movement, Shortness of breath, Chest pain, Uncontrolled pain Allergies/Adverse Reactions: Allergies amoxicillin Allergy (Verified 07/27/19 08:29) Unknown Anesthetics - Amide Type Allergy (Verified 07/27/19 08:29) Unknown Anesthetics - Lizzette Type- Parabens [Anesthetics - Lizzette Type] Allergy (Verified 07/27/19 08:29) Unknown Qcrcrsa-Fys-Nqn Reductase Inhibitor Allergy (Verified 07/27/19 08:29) Unknown Medications to take at Discharge Cholecalciferol (Vitamin D3) [Vitamin D3] 1,000 unit PO DAILY 10/17/13 ezetimibe 10 mg tablet 10 mg PO DAILY 12/15/17 Levothyroxine [Synthroid] 112 mcg PO DAILY@0600 05/08/19 Lisinopril 40 mg PO DAILY 05/08/19 Teriparatide [Forteo] 20 mcg SUBCUT DAILY 05/08/19 Tramadol HCl [Ultram] 50 mg PO BID 05/08/19 Cyanocobalamin (Vitamin B-12) [Vitamin B-12] 500 mcg PO DAILY 09/24/19 Carvedilol 25 mg PO BID 09/27/19 Acetaminophen [Tylenol] 1,000 mg PO TID@0000,0800,1600 PRN tablet 10/08/19 Emollient Combination No.72 [Eucerin Intensive Repair] 1 applic TOPICAL BID@0800,2200 lotion 10/08/19 Meclizine HCl [Antivert] 12.5 mg PO BID PRN PRN #60 tab 10/08/19 Menthol/Lanolin/Calamine/Znox [Calmoseptine Ointment] 1 applic TOPICAL BID@0800,2200 tube 10/08/19 The following prescriptions were given: Meclizine HCl [Antivert] 12.5 mg PO BID PRN PRN #60 tab PRN Reason: Vertigo Transmission Status: Pending to [id number] Primary Care Physician: Bill Castaneda MD [Primary Care Provider] - Please follow up with your Primary Care Physician in: 1 week. Test Results: Test results from this visit will be discussed in further detail at your follow- up appointment, if applicable. Please Follow Up With: 1-2 weeks When: after d/c from TCU Proposed Discharge Date: 10/11/19
--- NOTE | 2019-10-08 21:16 | PCM.DC.SUM ---
Discharge Date and Diagnosis - Problem List Patient Problems: Active and Suspected Problems (Last Reviewed 06/22/19 @ 10:[address] Pj Doll MD) Debility (Acute) Dizziness (Acute) Falls (Acute) Benign paroxysmal positional vertigo (Acute) Orthostatic hypotension (Acute) Date of Admission: 09/27/19 Date of Discharge: 10/11/19 - Primary Discharge Diagnosis Acute Problems: Active Problems (Last Reviewed 06/22/19 @ 10:[address] Pj Doll MD) Debility (Acute) Dizziness (Acute) Falls (Acute) Benign paroxysmal positional vertigo (Acute) Orthostatic hypotension (Acute) - Secondary Discharge Diagnosis Chronic Problems: Chronic Problems (Last Reviewed 06/22/19 @ 10:[address] 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) Hospital Course and Treatment Imaging Results: 09/27/19 17:15 Diet: Cardiac/Low Cholesterol Food consistency:: Regular Liquid Consistency:: Regular/Thin Labs (Last 48 Hours) 10/07/19 10/08/19 10/08/19 06:26 06:06 11:45 Urine Color Straw Urine Clarity Clear Urine pH 6.5 Ur Specific [place] 1.010 Urine Protein Negative Urine Glucose (UA) Normal Urine Ketones Negative Urine Occult Blood Negative Urine Nitrite Negative Urine Bilirubin Negative Urine Urobilinogen Normal Ur Leukocyte Esterase Negative Urine RBC 0 SEEN Urine WBC 0-5 SEEN Ur Squamous Epith Cells 0 SEEN Urine Bacteria 1+ Hyaline Casts 0-5 SEEN Urine Mucus 0 SEEN POC Glucose 82 93 Operations: None Procedures: None Summary of Care Provided: The patient is a 84 year old Female with below past medical history hospitalized for dizziness secondary to benign paroxysmal positional vertigo, orthostatic hypotension, posterior circulation stroke ruled out, admitted to TCU with debility, here for rehabilitation, strengthening, vestibular therapy, prior to discharge home alone. Discharge home alone, Home Health PT/OT, Front wheeled walker, palliative referral. Patient Problems: Active and Suspected Problems (Last Reviewed 06/22/19 @ 10:[address] Pj oDll MD) Debility (Acute) Dizziness (Acute) Falls (Acute) Benign paroxysmal positional vertigo (Acute) Orthostatic hypotension (Acute) - Physical Exam Vitals/I&O's: Vital Signs Temp Pulse Resp BP Pulse Ox 98.4 F 69 18 131/73 H 98 10/08/19 14:45 10/08/19 16:30 10/08/19 14:45 10/08/19 16:30 10/08/19 14:45 Oxygen Delivery Method Room Air Weight: 61.377 kg Body Mass Index (BMI) 23.1 Finger Stick Blood Glucose 227 Intake and Output for Last 24 Hours 10/06/19 10/07/19 10/08/19 23:59 23:59 23:59 Intake Total 300 / 300 420 / 420 440 / 440 Output Total 100 / 100 Balance 300 / 300 420 / 420 340 / 340 Laboratory Results 10/08/19 06:06: POC Glucose 93 10/08/19 11:45: Urine Color Straw, Urine Clarity Clear, Urine pH 6.5, Ur Specific [place] 1.010, Urine Protein Negative, Urine Glucose (UA) Normal, Urine Ketones Negative, Urine Occult Blood Negative, Urine Nitrite Negative, Urine Bilirubin Negative, Urine Urobilinogen Normal, Ur Leukocyte Esterase Negative, Urine RBC 0 SEEN, Urine WBC 0-5 SEEN, Ur Squamous Epith Cells 0 SEEN, Urine Bacteria 1+, Hyaline Casts 0-5 SEEN, Urine Mucus 0 SEEN Current Medications Acetaminophen (Tylenol) 1,000 mg PO TID@0000,0800,1600 PRN PRN Reason: Pain Score 1-10/10 Bisacodyl (Dulcolax) 10 mg RECTAL DAILY PRN PRN Reason: Constipation Calamine/Phenol (Calmoseptine Ointment) 1 applic TOPICAL BID@0800,2200 [place]; Protocol Last Admin: 10/08/19 19:34 Dose: 1 applicatio Documented by: Carvedilol (Coreg) 25 mg PO BID@0800,2000 [place] Last Admin: 10/08/19 19:34 Dose: 25 mg Documented by: Ezetimibe (Zetia) 10 mg PO DAILY@1200 [place] Last Admin: 10/08/19 10:55 Dose: 10 mg Documented by: Emollient Ointment (Eucerin Intensive Repair) 1 applic TOPICAL BID@0800,2200 [place]; Protocol Last Admin: 10/08/19 19:36 Dose: 1 applicatio Documented by: Enoxaparin Sodium (Lovenox) 40 mg SC DAILY@0800 [facility] Last Admin: 10/08/19 08:31 Dose: 40 mg Documented by: Levothyroxine Sodium (Synthroid) 112 mcg PO DAILY@0600 [facility] Last Admin: 10/08/19 04:56 Dose: 112 mcg Documented by: Lisinopril (Zestril) 20 mg PO DAILY@1200 [facility] Last Admin: 10/08/19 10:55 Dose: 20 mg Documented by: Meclizine HCl (Antivert) 12.5 mg PO BID PRN PRN PRN Reason: Vertigo Senna/Docusate Sodium (Senokot-S, An-Colace) 1 tablet PO BID@799,1999 [facility] Last Admin: 10/08/19 19:34 Dose: Not Given Documented by: Tramadol HCl (Ultram) 50 mg PO BID@ [facility] Last Admin: 10/08/19 19:34 Dose: 50 mg Documented by: Discharge Diet: No Restrictions Discharge Activity: Return to Normal Activity, May Shower, Use Walker Weight Bearing Status: Weight bearing as tolerated Call your doctor if you observe: Fever of 101 or Higher, Inability to urinate, Inability to have a bowel movement, Shortness of breath, Chest pain, Uncontrolled pain Home Medications: Medications to take at Discharge Cholecalciferol (Vitamin D3) [Vitamin D3] 1,000 unit PO DAILY 10/17/13 ezetimibe 10 mg tablet 10 mg PO DAILY 12/15/17 Levothyroxine [Synthroid] 112 mcg PO DAILY@0600 05/08/19 Lisinopril 40 mg PO DAILY 05/08/19 Teriparatide [Forteo] 20 mcg SUBCUT DAILY 05/08/19 Tramadol HCl [Ultram] 50 mg PO BID 05/08/19 Cyanocobalamin (Vitamin B-12) [Vitamin B-12] 500 mcg PO DAILY 09/24/19 Carvedilol 25 mg PO BID 09/27/19 Acetaminophen [Tylenol] 1,000 mg PO TID@0000,0800,1600 PRN tablet 10/08/19 Emollient Combination No.72 [Eucerin Intensive Repair] 1 applic TOPICAL BID@0800,2200 lotion 10/08/19 Meclizine HCl [Antivert] 12.5 mg PO BID PRN PRN #60 tab 10/08/19 Menthol/Lanolin/Calamine/Znox [Calmoseptine Ointment] 1 applic TOPICAL BID@0800,2200 tube 10/08/19 Following Prescrptions Were Given to Patient: Meclizine HCl [Antivert] 12.5 mg PO BID PRN PRN #60 tab PRN Reason: Vertigo Transmission Status: Pending to [facility] Primary Care Physician: Bill Castaneda MD [Primary Care Provider] - Please follow up with your Primary Care Physician in: 1 week. Please Follow Up With: 1-2 weeks When: after d/c from TCU Disposition: Home with Home Health Minutes spent on discharge:: 35 Patient Condition:: Stable Medical Necessity - Tobacco Use Smoking Status: Never smoker Tobacco Use: Non-smoker Meaningful Use Info Meaningful Use Diagnoses (Choose all that apply): None applicable
[2019-10-09 05:44] VITALS: BP 167/84; PULSE 71; RESP 18; TEMP 36.3; O2SAT 94
[2019-10-09] MEDS: Levothyroxine 112 MCG Tablet PO (06:03)
[2019-10-09 06:36] LABS: Bedside Glucose 79 mg/dL (70-110)
[2019-10-09] MEDS: Enoxaparin 40 MG/0.4 ML Syringe SC (08:23)
[2019-10-09] MEDS: Senna/Docusate Sodium 1 Tablet PO ×2 (08:23→11:13)
[2019-10-09] MEDS: Carvedilol 25 MG Tablet PO ×2 (08:23→19:43)
[2019-10-09] MEDS: Menthol/Lanolin/Calamine/Znox 113 GM Tube 1 APPLIC TOPICAL ×2 (08:24→19:42)
--- NOTE | 2019-10-09 10:22 | CASEMGMT ---
Social Work Faxed script to [facility] for FWW. Left message with [facility] to notify of potential DC date. Referral made to [facility] for PT/OT - SOC 10/14. Will continue to follow for appeal outcome. Amy Paz, DEMOLITION WORKER HEDIS ANALYST
[2019-10-09] MEDS: Ezetimibe 10 MG Tablet PO (11:11)
[2019-10-09 11:12] VITALS: BP 94/57
[2019-10-09] MEDS: Acetaminophen 500 MG Tablet 1000 MG PO (11:15)
--- NOTE | 2019-10-09 11:18 | NURSING ---
Sitting up in chair. no complaints. BP taken prior to giving Lisinopril and Ultram. 94/57. Resident does not want to take Ultram due to low BP and also hold Lisinopril at this time. Denies being lightheaded. WIll continue to monitor. Given Tylenol prior to therapy instead of the Ultram.
--- NOTE | 2019-10-09 11:29 | NURSING ---
BP taken and 94/57. Reports being dizzy when up walking. Lisinopril held at this time and resident requesting to have Ultram held as well. Therapy in room to work with resident.
[2019-10-09 13:49] VITALS: BP 102/60; PULSE 59; RESP 14; TEMP 36.2; O2SAT 96
--- NOTE | 2019-10-09 14:59 | NURSING ---
Incontinent of urine. Resident upset and gets emotional. I dont feel like I am getting better, Im getting worse. Emotional support given. She states she is in contact with her family frequently and there is no need for this RN to call family for a daily update.
[2019-10-09] MEDS: traMADol 50 MG Tablet PO (19:43)
[2019-10-10 05:16] VITALS: BP 151/79; PULSE 60; RESP 16; TEMP 36.8; O2SAT 97
[2019-10-10] MEDS: Levothyroxine 112 MCG Tablet PO (05:22)
[2019-10-10] MEDS: Menthol/Lanolin/Calamine/Znox 113 GM Tube 1 APPLIC TOPICAL ×2 (05:23→20:05)
[2019-10-10 06:31] LABS: Bedside Glucose 85 mg/dL (70-110)
[2019-10-10] MEDS: Carvedilol 25 MG Tablet PO ×2 (08:29→20:03)
[2019-10-10] MEDS: Enoxaparin 40 MG/0.4 ML Syringe SC (08:29)
[2019-10-10] MEDS: Senna/Docusate Sodium 1 Tablet PO (08:29)
[2019-10-10 11:00] VITALS: BP 90/53; PULSE 72
[2019-10-10] MEDS: traMADol 50 MG Tablet PO ×2 (11:04→20:03)
--- NOTE | 2019-10-10 12:48 | CASEMGMT ---
Social Work Pt lost appeal. Spoke with pt and dtr. Family to transport pt. [facility] per dtr request. Plan: DC home 10/10 SANJAY Moore
[2019-10-10 13:03] VITALS: BP 132/77; PULSE 66
[2019-10-10] MEDS: Lisinopril 40 MG Tablet 20 MG PO (13:04)
[2019-10-10] MEDS: Ezetimibe 10 MG Tablet PO (13:04)
[2019-10-11 05:56] VITALS: BP 142/72; PULSE 63; RESP 16; TEMP 36.7; O2SAT 62
[2019-10-11] MEDS: Levothyroxine 112 MCG Tablet PO (05:57)
[2019-10-11 06:35] LABS: Bedside Glucose 90 mg/dL (70-110)
[2019-10-11] MEDS: Senna/Docusate Sodium 1 Tablet PO (08:14)
[2019-10-11] MEDS: Carvedilol 25 MG Tablet PO (08:14)
[2019-10-11] MEDS: traMADol 50 MG Tablet PO (10:23)
[2019-10-11 11:28] VITALS: BP 130/56; PULSE 62
[2019-10-11] MEDS: Ezetimibe 10 MG Tablet PO (11:38)
[2019-10-11] MEDS: Lisinopril 40 MG Tablet 20 MG PO (11:39)
== END 2019-10-11 12:30 | disposition home health service (06) | DRG 149 ==
PROVIDERS: Admitting Provider Family Medicine Geriatric Medicine; PCP Family Medicine; Visit Provider Family Medicine Geriatric Medicine
DX: H81.10 Benign paroxysmal vertigo, unspecified ear (principal); E78.5 Hyperlipidemia, unspecified; E03.9 Hypothyroidism, unspecified; I10 Essential (primary) hypertension; M19.90 Unspecified osteoarthritis, unspecified site; M81.0 Age-related osteoporosis without current pathological fracture; E11.51 Type 2 diabetes mellitus with diabetic peripheral angiopathy without gangrene; J45.909 Unspecified asthma, uncomplicated; I25.2 Old myocardial infarction; I95.1 Orthostatic hypotension
CPT/HCPCS: 36415; 80048; 81001; 82962; 85025; 87086; 87635; 97110; 97116; 97162; 97166; 97530; 97535; 97802; G2023; U0003

== ENCOUNTER 2020-04-10 15:13 | Outpatient (RCR) | payer MEDICARE, SELFPAY ==
[2020-03-24 11:55] VITALS: BMI 23.0
== END 2020-04-10 23:59 ==
LOC: IMMUN 15:13
PROVIDERS: PCP Family Medicine; Visit Provider Family Medicine
DX: Z23 Encounter for immunization (principal)
CPT/HCPCS: 0011A; 0012A; 91301

== ENCOUNTER → 2020-07-02 12:10 | Outpatient (CLI) | payer MEDICARE, SELFPAY ==
[2020-03-24 11:55] VITALS: BMI 23.0
[2020-07-02 15:09] LABS: Absolute Lymphocyte Count 1.15 X10^3/uL (0.83-4.51); Absolute Neutrophil Count 4.5 X10^3/uL (2.0-7.7); Basophil# 0.04 X10^3/uL; Basophil% 0.6 % (0-1); Eosinophil# 0.11 X10^3/uL; Eosinophils% 1.8 % (0-5); Hematocrit 43.4 % (37-47); Lymphocyte # 1.15 X10^3/ul (0.83-4.51); Lymphocyte % 18.4 % (19-41); Mean Platelet Vol. 9.7 fl (6.2-12.0); Monocyte# 0.45 X10^3/uL; Monocyte% 7.2 % (0-10); NRBC Flagged by Analyzer 0 % (0-5); Neutrophil % 71.8 % (47-70); Platelet Count 333 K/mm3 (150-450); RBC Distribution Width CV 13.4 % (11.6-14.6); RBC Distribution Width SD 44.2 fl (35.1-43.9); Red Blood Count 4.82 M/mm3 (4.2-5.4); White Blood Count 6.3 K/mm3 (4.4-11.0)
[2020-07-02 15:37] LABS: Vitamin B12 319 pg/mL (211-911)
[2020-07-02 16:08] LABS: AST(SGOT) 26 U/L (15-37); Alanine Aminotransfer ALT/SGPT 28 U/L (13-56); Albumin, Serum 3.9 g/dL (3.2-5.0); Alkaline Phosphatase 73 U/L (45-117); Anion Gap 5 (5-15); BUN 20 mg/dL (7-18); BUN/Creat Ratio 35.7 RATIO (10-20); Calcium,Total 9.9 mg/dL (8.5-10.1); Chloride 106 mmol/L (98-107); Creatinine, Serum 0.56 mg/dL (0.55-1.02); EST Glomerular Filtration Rate 110 mL/min (>60); Est Glom Filt Rate - Afr Amer 133 mL/min (>60); Globulin 4.1 g/dL (2.2-4.2); Glucose 141 mg/dL (74-106); Potassium 3.5 mmol/L (3.5-5.1); Sodium Level 141 mmol/L (136-145); T4 Free Direct 1.16 ng/dL (0.76-1.46); Thyroid Stim Hormone (TSH) 6.48 uIU/mL (0.358-3.74)
== END ==
PROVIDERS: PCP Family Medicine; Referring Provider Family Medicine; Visit Provider Family Medicine
DX: E03.9 Hypothyroidism, unspecified (principal); E78.5 Hyperlipidemia, unspecified; E53.8 Deficiency of other specified B group vitamins; E55.9 Vitamin D deficiency, unspecified
CPT/HCPCS: 36415; 80053; 82306; 82607; 84439; 84443; 85025

== ENCOUNTER → 2020-07-14 12:56 | Outpatient (CLI) | payer MEDICARE, SELFPAY ==
[2020-03-24 11:55] VITALS: BMI 23.0
--- NOTE | 2020-07-14 13:02 | US_ITS ---
INDICATION: LUMP R HEMITHYROID EXAMINATION: US Thyroid (eg thyroid, parathyroid, parotid) TECHNIQUE: Wood scale and color doppler imaging was performed of the thyroid gland. COMPARISON: None. FINDINGS: RIGHT THYROID LOBE: Measures 4 x 1.9 x 1.7 cm. Heterogeneous echotexture with normal vascularity. [No thyroid nodules are present. LEFT THYROID LOBE: Measures 2.7 x 1.5 x 1.9 cm. Heterogeneous echotexture with normal vascularity. [No thyroid nodules are present. ISTHMUS: Measures 2 mm.. No thyroid nodules are present. OTHER: In the right anterior neck at area of palpable concern there is a 2.1 x 1.2 x 0.3 cm elongated structure with a fatty hilum in the subcutaneous tissue, most consistent with a benign-appearing lymph node. US/Thyroid IMPRESSION: Nonenlarged heterogeneous thyroid without increased vascularity is concerning for diffuse thyroid disease. No discrete nodules. There is a benign-appearing cervical lymph node at area of palpable concern. Electronically Signed: Zachery Geiger MD at 20:43 EDT Tel , Service support ,
== END ==
PROVIDERS: PCP Family Medicine; Referring Provider Family Medicine; Visit Provider Family Medicine
DX: E07.9 Disorder of thyroid, unspecified (principal)
CPT/HCPCS: 76536

== ENCOUNTER → 2020-08-21 12:03 | Outpatient (CLI) | payer MEDICARE, SELFPAY ==
[2020-03-24 11:55] VITALS: BMI 23.0
[2020-08-21 15:39] LABS: Thyroid Stim Hormone (TSH) 0.69 uIU/mL (0.358-3.74)
== END ==
PROVIDERS: PCP Family Medicine; Referring Provider Family Medicine; Visit Provider Family Medicine
DX: E03.9 Hypothyroidism, unspecified (principal)
CPT/HCPCS: 36415; 84443

== ENCOUNTER → 2021-09-03 | Outpatient (CLI) | payer MEDICARE, SELFPAY ==
--- NOTE | 2021-09-03 12:42 | MRI_ITS ---
STUDY: MR Spine Lumbar W/O Contrast 09/03/2021 9:36 PM REASON FOR EXAM: Female, 86 years old. Back pain OSTEOPORSIS, SPONDYLOLITHESIS TECHNIQUE: MR Spine Lumbar W/O Contrast Standardized fat and water weighted pulse sequences were obtained. COMPARISON: 03.20.19 mri FINDINGS: Normal lumbar lordosis. There is no substantial scoliosis. There is hypodensities of the right kidney. These are consistent for cysts. No follow up required. Old compression deformity of T12. 3 mm retropulsed fragment into the spinal canal. No spinal stenosis. L1-2: There is bilateral facet arthropathy. Loss of intervertebral disc height. There is endplate spondylosis of the vertebral body. Unremarkable central canal. Unremarkable intervertebral neuroforamina. There is bilateral ligamentum flavum thickening. L2-3: There is bilateral facet arthropathy. Loss of intervertebral disc height. There is endplate spondylosis of the vertebral body. Unremarkable central canal. Unremarkable intervertebral neuroforamina. There is bilateral ligamentum flavum thickening. L3-4: There is bilateral facet arthropathy. Loss of intervertebral disc height. There is endplate spondylosis of the vertebral body. There is bilateral ligamentum flavum thickening. L4-5: There is bilateral facet arthropathy. Osseous fusion of L4-5. Spinal fixation hardware noted. Right pedicle screw does not enter the right L4 pedicle. It extends outside the pedicle and along the right side of the L4 vertebral body. It abuts into the right atrophic psoas muscle. There is endplate spondylosis of the vertebral body. Laminectomy changes. Narrowing of the intervertebral neuroforamina. Compression of exiting nerve roots. Stabilized grade 1 anterolisthesis of L4 on L5. There is bilateral ligamentum flavum thickening. L5-S1: There is bilateral facet arthropathy. Loss of intervertebral disc height. There is endplate spondylosis of the vertebral body. Unremarkable central canal. Narrowing of the intervertebral neuroforamina. Compression of exiting nerve roots. MRI/Spine Lumbar (Routine) IMPRESSION: (NOT LISTED IN ORDER OF SIGNIFICANCE) Multilevel degenerative changes, as described above. Old compression deformity of T12. 3 mm retropulsed fragment into the spinal canal. L4-5: Osseous fusion of L4-5. Spinal fixation hardware noted. Right pedicle screw does not enter the right L4 pedicle. It extends outside the pedicle and along the right side of the L4 vertebral body. It abuts into the right atrophic psoas muscle. Laminectomy changes. Narrowing of the intervertebral neuroforamina. Compression of exiting nerve roots. L5-S1: Narrowing of the intervertebral neuroforamina. Compression of exiting nerve roots. Electronically Signed: Edilson Islas MD at 21:41 EDT ,
--- NOTE | 2021-09-03 13:47 | CT_ITS ---
STUDY: CT LUMBAR SPINE WITHOUT CONTRAST REASON FOR EXAM: Female, 86 years old. OSTEOPOROSIS TECHNIQUE: The patient was scanned in a multi detector CT scanner. High resolution transaxial imaging was performed. Images were obtained from T12 to S1. Sagittal and coronal images were reconstructed. Radiation: CTDIvol = [11.58] mGy, DLP = [287.39] mGy-cm Individualized dose optimization techniques were used for this CT. COMPARISON: None FINDINGS: Normal lumbar lordosis. There is no substantial scoliosis. There is hypodensities of the right kidney. These are consistent for cysts. No follow up required. Old compression deformity of T12. 3 mm retropulsed fragment into the spinal canal. L1-2: There is bilateral facet arthropathy. Loss of intervertebral disc height. There is endplate spondylosis of the vertebral body. Unremarkable central canal. Unremarkable intervertebral neuroforamina. L2-3: There is bilateral facet arthropathy. Loss of intervertebral disc height. There is endplate spondylosis of the vertebral body. Unremarkable central canal. Unremarkable intervertebral neuroforamina. L3-4: There is bilateral facet arthropathy. Loss of intervertebral disc height. There is endplate spondylosis of the vertebral body. There is too much metal artifact. Spinal stenosis cannot be assessed. L4-5: There is bilateral facet arthropathy. Osseous fusion of L4-5. Spinal fixation hardware noted. Right pedicle screw does not enter the right L4 pedicle. It extends outside the pedicle and along the right side of the L4 vertebral body. It abuts into the right atrophic psoas muscle. There is endplate spondylosis of the vertebral body. Laminectomy changes. Unremarkable intervertebral neuroforamina. Stabilized grade 1 anterolisthesis of L4 on L5. L5-S1: There is bilateral facet arthropathy. Loss of intervertebral disc height. There is endplate spondylosis of the vertebral body. Unremarkable central canal. Narrowing of the intervertebral neuroforamina. CT/Spine Lumbar without Contrast IMPRESSION: (NOT LISTED IN ORDER OF SIGNIFICANCE) Multilevel degenerative changes, as described above. Old compression deformity of T12. 3 mm retropulsed fragment into the spinal canal. L4-5: Osseous fusion of L4-5. Spinal fixation hardware noted. Right pedicle screw does not enter the right L4 pedicle. It extends outside the pedicle and along the right side of the L4 vertebral body. It abuts into the right atrophic psoas muscle. Laminectomy changes. L5-S1: Narrowing of the intervertebral neuroforamina. Electronically Signed: Edilson Islas MD at 21:38 EDT ,
--- NOTE | 2021-09-03 14:40 | BD_ITS ---
STUDY: DUAL ENERGY X-RAY ABSORPTIOMETRY / DXA REASON FOR EXAM: Female, 86 years old. Z78.0 TECHNIQUE: Bone Mineral Density (BMD) measurements of lumbar spine and bilateral forearms were obtained. COMPARISON: Comparison is made with prior study dated 11/05/2015. FINDINGS: Lumbar Spine (L1-L4): g/cm2 (0.797) / T-score (-2.0) / Z-score (0.8) Findings are suggestive of osteopenia with a moderate fracture risk. Right Forearm: g/cm2 (0.465) / T-score (-2.1) / Z-score (1.4) Left Forearm: g/cm2 (0.475) / T-score (-3.6) / Z-score (0.0) The T-Scores on the most recent prior examination were: Lumbar Spine (L1-L4): There has been worsening of bone density since the previous examination. BD/Dexa Bone Density Study IMPRESSION: The patient is considered osteoporotic as outlined below according to World Gareth Organization (WHO) criteria with a high fracture risk. There has been worsening of bone density since the previous examination. Reference Information: The T-score is the number of standard deviations above or below the standard which is normal for young adults at their peak bone mineral density. The World Health Organization (WHO) interprets the T-scores as follows: Above -1 Normal bone density Between -1 and -2.5 Osteopenia Equal to / or below -2.5 Osteoporosis As a practical clinical guideline, osteopenia may be graded as follows: Mild -1 through -1.5 Moderate -1.6 through -2.0 Severe -2.1 through -2.4 The Z-score is the number of standard deviations above or below age-matched controls. A Z-score of less than -1.5 would be considered abnormal. References: 1. NIH Osteoporosis and Related Bone Diseases www osteo.org 2. International Society for Clinical Densitometry www iscd.org 3. National Osteoporosis Foundation www nof.org Electronically Signed: Javier Ledbetter MD at 14:33 EDT ,
== END | disposition home or self-care (01) ==
LOC: MRI 12:21
PROVIDERS: PCP Family Medicine
DX: M81.0 Age-related osteoporosis without current pathological fracture (principal); M43.16 Spondylolisthesis, lumbar region; Z78.0 Asymptomatic menopausal state
CPT/HCPCS: 72131; 72148; 77080

== ENCOUNTER → 2021-12-31 | Outpatient (CLI) | payer MEDICARE, SELFPAY ==
[2021-12-31 19:38] LABS: ALB/GLOB Ratio 1.1 RATIO (0.9-2.4); AST(SGOT) 29 U/L (15-37); Alanine Aminotransfer ALT/SGPT 30 U/L (13-56); Albumin, Serum 4.4 g/dL (3.2-5.0); Alkaline Phosphatase 73 U/L (45-117); Anion Gap 9 (5-15); BUN 21 mg/dL (7-18); BUN/Creat Ratio 42.3 RATIO (10-20); Calcium,Total 10.7 mg/dL (8.5-10.1); Chloride 104 mmol/L (98-107); EST Glomerular Filtration Rate 126 mL/min (>60); Est Glom Filt Rate - Afr Amer 152 mL/min (>60); Globulin 3.9 g/dL (2.2-4.2); Glucose 112 mg/dL (74-106); Potassium 4.7 mmol/L (3.5-5.1); Protein, Total 8.3 g/dL (6.4-8.2); Sodium Level 140 mmol/L (136-145); T4 Free Direct 1.04 ng/dL (0.76-1.46); Thyroid Stim Hormone (TSH) 8.62 uIU/mL (0.358-3.74)
[2021-12-31 20:35] LABS: Vitamin D,25 Hydroxy 35.6 ng/mL
== END | disposition home or self-care (01) ==
LOC: LAB 16:44
PROVIDERS: PCP Family Medicine; Visit Provider Internal Medicine Endocrinology, Diabetes & Metabolism
DX: R00.2 Palpitations (principal); E03.9 Hypothyroidism, unspecified; E55.9 Vitamin D deficiency, unspecified; M81.0 Age-related osteoporosis without current pathological fracture
CPT/HCPCS: 36415; 80053; 82306; 84439; 84443

== ENCOUNTER → 2022-01-07 | Outpatient (CLI) | payer MEDICARE, SELFPAY ==
[2022-01-07 11:20] LABS: Calcium,Total 9.9 mg/dL (8.5-10.1)
[2022-01-07 11:27] LABS: PTHIN 45.3 pg/mL (18.4-80.1)
== END | disposition home or self-care (01) ==
PROVIDERS: PCP Family Medicine; Referring Provider Internal Medicine Endocrinology, Diabetes & Metabolism; Visit Provider Internal Medicine Endocrinology, Diabetes & Metabolism
DX: E83.52 Hypercalcemia (principal)
CPT/HCPCS: 36415; 82310; 82330; 83970

== ENCOUNTER 2022-01-20 13:14 | Emergency (ER) | payer MEDICARE, SELFPAY ==
[2022-01-20 13:14] VITALS: BP 154/78; PULSE 75; RESP 18; TEMP 36.8; O2SAT 95; BMI 26.6
--- NOTE | 2022-01-20 14:49 | ED.VIS.FALL ---
HPI HPI - Fall History of Present Illness Chief Complaint: Fall Informant: patient Occured/Mechanism Occurred: Today Mechanism/Context: Yes same level fall Usually ambulates: Walker Pain/Injury Pain Location: pelvis Quality of Pain: Dull and Aching Current Severity: Mild Maximum Severity: Mild Associated Symptoms Associated Symptoms: Negative for Parasthesias, Weakness, Loss of function, Inability to ambulate, Loss of consciousness or Amnesia Narrative Narrative: 86-year-old female who has had bilateral hip fractures in the past. She is a diet-controlled diabetic, hypertension and is chronic balance issues. Patient states she was at home today in her kitchen she felt fine. Lost her balance and fell injuring her pelvis and both hips. She said the pain is not as bad now. She did not hit her head. She denies any LOC. States she felt fine prior to the fall. She denies any recent illness or hospitalization. She denies any shortness of breath, chest pain or abdominal pain. No fever or chills. Prior similar symptoms: Yes Recent Illness/Hospitalization: No PFSH PFSH Medical History Asthma Back pain Colitis Controlled diabetes mellitus with peripheral circulatory disorder Essential (primary) hypertension HLD (hyperlipidemia) Hypercalcemia Old anterior wall myocardial infarction Osteoarthritis Other chest pain Palpitations Takotsubo cardiomyopathy Home Medications ezetimibe 10 mg tablet (Zetia) 10 mg PO DAILY cholesterol 12/15/17 [History Last Taken 09/23/19 08:00] levothyroxine 112 mcg tablet 112 mcg PO DAILY@0600 thyroid 05/08/19 [History Last Taken 09/23/19 06:00] tramadol 50 mg tablet 50 mg PO BID pain 05/08/19 [History Last Taken 09/23/19 18:00] cyanocobalamin (vitamin B-12) 500 mcg chewable tablet 500 mcg PO DAILY supplement 09/24/19 [History Last Taken 09/23/19 08:00] meclizine 12.5 mg tablet 12.5 mg PO BID PRN PRN Vertigo #60 tabs 10/08/19 [Rx Last Taken Unknown] cholecalciferol (vitamin D3) 50 mcg (2,000 unit) tablet 2,000 unit PO DAILY supplement 10/25/19 [History Last Taken Unknown] multivitamin 1 tab PO DAILY 03/24/20 [History Last Taken Unknown] aspirin 81 mg tablet,delayed release (Adult Aspirin Regimen) 81 mg PO QDAY #30 tabs 08/13/21 [Rx Last Taken Unknown] amlodipine 2.5 mg tablet 2.5 mg PO DAILY #90 tabs 08/14/21 [Rx Last Taken Unknown] carvedilol 25 mg tablet 25 mg PO BID BP #180 tabs 09/11/21 [Rx Last Taken Unknown] lisinopril 20 mg tablet 20 mg PO DAILY #90 tabs 12/28/21 [Rx Last Taken Unknown] docusate sodium 100 mg capsule (Dulcolax Stool Softener (docusate)) 100 mg PO DAILY 12/31/21 [History Last Taken Unknown] zoledronic acid 5 mg/100 mL in mannitol 5 %-water intravenous piggybck 1 ea .Route ONCE #100 mL 01/07/22 [Rx Last Taken Unknown] Allergy/AdvReac Type Severity Reaction Status Date / Time amoxicillin Allergy Unknown Verified 12/31/21 15:47 Anesthetics - Amide Type - Allergy Unknown Verified 12/31/21 15:47 Select A [Anesthetics - Amide Type] Anesthetics - Lizzette Type- Allergy Unknown Verified 12/31/21 15:47 Parabens [Anesthetics - Lizzette Type] Wvnjyii-TGS-HjJ Reductase AdvReac Myalgia Verified 12/31/21 15:47 Inhibitor [Ubworhc-Taj-Uvy Reductase Inhibitor] Family History Father , age 83 Colon cancer Mother , age 90 CHF (congestive heart failure) Brother , age 68 Diabetes Sister CVA (cerebral vascular accident) Daughter Hypertension Daughter Thyroid disorder Surgical History History of back surgery (~2016) History of cholecystectomy (~2005) History of dilation and curettage (~1994) History of fractured pelvis (~2013) History of left heart catheterization (LHC) (03/2010) History of left hip replacement History of right hip replacement (~2016) History of tonsillectomy Social History Smoking Status: Never smoker how long ago did patient quit smokin alcohol intake: current alcohol intake frequency: holidays/special occasions only Alcohol type: wine substance use type: does not use diet: diabetic caffeine: No what type of physical activity do you participate in: other details: PT frequency: daily duration: 15-30 minutes/day seatbelt use: always do you feel safe at home: Yes ROS ROS ED ROS Narrative Denies recent illness. Review of Systems ROS Unobtainable: Denies due to encephalopathy Constitutional Constitutional ED: Denies chills or fever(s) ENT ENT ED: Denies ear pain Cardiovascular Cardiovascular: Denies chest pain Respiratory/Chest Respiratory/Chest: Denies cough or dyspnea Gastrointestinal Gastrointestinal: Reports constipation; Denies abdominal pain, diarrhea, melena, nausea or vomiting Genitourinary Genitourinary ED: Denies dysuria or hematuria Musculoskeletal Musculoskeletal: Denies arthralgias or back pain Integumentary Denies abscess or Abrasions Neurologic Neurologic: Denies headache(s) Psychiatric Psychiatric: Denies anxiety Endocrine Endocrinology: Denies polydipsia or polyphagia Hematologic/Lymphatic Hematologic/Lymphatic: Denies easy bleeding or easy bruising Allergic/Immunologic Allergic/Immunologic ED: Denies mouth swelling or tongue swelling EXAM Physical Exam Narrative Exam Narrative: 86-year-old female no acute distress sitting upright in bed. Vital signs stable afebrile. H EENT exam unremarkable atraumatic. Pupils round reactive light. Moist mucous membranes. No facial droop. No facial or skull tenderness. Neck nontender. Trachea midline. Lungs clear equal symmetrical bilaterally. Heart regular rate and rhythm rate about 75 no murmur. Chest were nontender. Abdomen soft nontender. Pelvic girdle is intact. She complains of mild discomfort of both hips there is no shortening or rotation. She can flex and extend at both hips knees ankles and feet. There is no gross bony deformity. I did passive range of motion to both hips with only mild discomfort. Back is nontender. 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 Neurologically she is awake and alert with no focal motor deficits. Answering questions and following commands. Const Vital Signs: 01/20/22 13:14 01/20/22 13:19 Temperature 98.2 F Temperature Source Temporal Pulse Rate 75 Respiratory Rate 18 Respiratory Effort Normal Respiratory Depth Normal Respiratory Pattern Normal Blood Pressure 154/78 H Blood Pressure Mean 103 Pulse Ox 95 Oxygen Delivery Method Nasal Cannula Positive well nourished and well developed; Negative for obese, cachectic, contractures or unkempt General Appearance ED: well developed; Negative for unkempt, cachectic or contractures Nutritional Appearance: Negative for cachectic or obese HEENT Reports normocephalic atraumatic; Negative for trauma, contusion, hematoma or tenderness Eyes PERRL and EOMs intact bilaterally General Eye ED: Negative for pale conjunctiva, scleral icterus or other Neck full ROM, no lymphadenopathy and supple General: Negative for tenderness or other Chest Wall inspection of chest normal and palpation of chest normal Chest: Negative for other Resp normal respiratory effort, no retractions and clear to auscultation bilaterally Effort and Inspection: Negative for pain with movement Auscultation: Negative for rales, rhonchi, wheezes or diminished lung sounds Cardio regular rate, regular rhythm, S1 normal heart sound, S2 normal heart sound and no murmurs Rate: Negative for bradycardia Rhythm: Negative for abnormal rhythm Bruits: Negative for other GI non-tender, non-distended and no masses Inspection: Negative for abdominal distention Auscultation: normoactive bowel sounds Palpation: soft; Negative for guarding or rebound tenderness present Back/Spine no CVA tenderness General Back: Negative for CVA tenderness Cervical Spine: Negative for cervical spine tenderness Thoracic Spine / Upper Back: Negative for ROM limited or pain with ROM Lumbar Spine / Lower Back: Negative for lumbar spinal tenderness or paraspinal muscle tenderness Neuro oriented x3, CN's II-XII intact bilaterally, moves all extremities and no focal motor deficits [place] Coma Scale: document GCS findings Spontaneous Obeys Commands Oriented 15 Sensorium / Orientation: alert, oriented to person, oriented to place and oriented to time; Negative for orientation impaired, confused, lethargic or stuporous Motor Exam: strength 5/5 throughout Psych mental status grossly normal and thought process normal Appearance: Negative for unkempt Attitude: No agitated Mood & Affect: Negative for depressed, anxious or tearful Skin Lesions: no lesions Rashes: no rashes Trauma: Negative for abrasion MDM MDM MDM Narrative Medical decision making narrative: 86-year-old female lives alone at home uses a walker lost her balance fell in her kitchen complaining of pelvis pain. Exam is pretty benign. Pelvis x-ray with both hips will be obtained. She currently does not need anything for pain. Repeat exam patient doing well at 4:15 PM. Nurses were able to ambulate the patient she was slow and steady but did well with a walker. She is comfortable being discharged home. Radiography Diagnostic Testing: Clinical Impression(s) from Imaging Studies Lumbar Spine X-Ray 01/20/22 15:10 IMPRESSION: Mild loss of height of the superior endplate of the T12 vertebrae. Status post laminectomy and fusion at the L4-L5 level with prosthetic disc. Electronically Signed: Javier Ledbetter MD at 15:48 EST , Hip/Pelvis X-Ray 01/20/22 15:15 IMPRESSION: Prior right total hip replacement. Prior fixation of the left intertrochanteric fracture. No acute fracture or dislocation is seen. Electronically Signed: Javier Ledbetter MD at 15:42 EST , Pelvis and bilateral hip x-rays. Prior right hip prosthesis. Prior left hip fracture fixation. Chronic changes. No acute fracture. 5 x-rays. Interpreted both by myself and the radiologist. Lumbar spine x-ray shows no acute abnormality. There appears to be an old compression fracture T12. Prior back surgery with orthopedic prosthesis and L4-L5. Again interpreted both by myself and the radiologist. Discharge Plan Triage Chief Complaint: Fall ED Provider: Kishan Aguero Dx/Rx/DC Orders Clinical Impression: Fall, Diabetes mellitus, Contusion of pelvis Instructions: ED Soft Tissue Contusion Prescriptions: No Action multivitamin Tablet 1 tab PO DAILY aspirin [Adult Aspirin Regimen] 81 mg tablet,delayed release (DR/EC) 81 mg PO QDAY Qty: 30 11RF docusate sodium [Dulcolax Stool Softener (dss)] 100 mg capsule 100 mg PO DAILY levothyroxine 112 MCG tablet 112 mcg PO DAILY@0600 tramadol 50 MG tablet 50 mg PO BID cyanocobalamin (vitamin B-12) 500 MCG tablet,chewable 500 mcg PO DAILY meclizine 12.5 MG tablet 12.5 mg PO BID PRN PRN (Reason: Vertigo) Qty: 60 0RF ezetimibe [Zetia] 10 mg tablet 10 mg PO DAILY cholecalciferol (vitamin D3) 50 mcg (2,000 unit) tablet 2,000 unit PO DAILY Label Comments: SUPPLEMENT amlodipine 2.5 mg tablet 2.5 mg PO DAILY Qty: 90 3RF carvedilol 25 mg tablet 25 mg PO BID Qty: 180 3RF lisinopril 20 mg tablet 20 mg PO DAILY Qty: 90 3RF zoledronic idyz-ejkoozol-idazy 5 mg/100 mL piggyback 1 ea .Route ONCE Qty: 100 0RF Rx Instructions: infuse over 20 minutes Primary Care Provider: Bill Castaneda Referrals: Bill Castaneda MD [Primary Care Provider] - As Needed Activity Restrictions/Additional Instructions: Be very careful not to fall at home. Follow-up with your doctor as needed. Your x-rays tonight of your lower back did not show any acute injuries or of your pelvis or hips. Tylenol for pain. Disposition Disposition: Home, Self Care
--- NOTE | 2022-01-20 15:10 | RAD_ITS ---
STUDY: X-RAY - LUMBAR SPINE REASON FOR EXAM: Female, 86 years old. PAIN TECHNIQUE: 2 view(s) of the lumbar spine were obtained. COMPARISON: Comparison is made with prior examination dated 09/24/2019. FINDINGS: Normal lumbar lordosis. There is no substantial scoliosis. There is a normal alignment of the vertebrae. The patient is status post laminectomy and interpedicular screw fixation with prosthetic disc placement at the L4-L5 level. Mild loss of height of the superior endplate of the T12 vertebrae. The soft tissue structures are unremarkable. RAD/Lumbar Spine 2 or 3 Views IMPRESSION: Mild loss of height of the superior endplate of the T12 vertebrae. Status post laminectomy and fusion at the L4-L5 level with prosthetic disc. Electronically Signed: Javier Ledbetter MD at 15:48 EST ,
--- NOTE | 2022-01-20 15:15 | RAD_ITS ---
STUDY: X-RAY - PELVIS AND BILATERAL HIPS REASON FOR EXAM: Female, 86 years old. Pain following a fall. TECHNIQUE: AP view of the pelvis.? 2 views of the right hip, and 2 views of the left hip were obtained. COMPARISON: Comparison is made with prior study dated 09/24/2019. FINDINGS: There is a non-specific bowel gas pattern. Normal visualized soft tissue structures. Prior fusion of the lower lumbar spine. There is narrowing with cortical sclerosis and osteophyte formation of the sacroiliac joint consistent with degenerative osteoarthritic changes. Normal bilateral superior and inferior pubic rami. There are degenerative changes of the pubic symphysis with articular narrowing and sclerosis. Normal bilateral ischial tuberosities. The patient is status post right total hip replacement. There is evidence of prior intramedullary delonte fixation device and compression screw fixation of a left intertrochanteric fracture. The fracture is healed. RAD/Hips B/L min 2 views w/ Pelvis IMPRESSION: Prior right total hip replacement. Prior fixation of the left intertrochanteric fracture. No acute fracture or dislocation is seen. Electronically Signed: Javier Ledbetter MD at 15:42 EST ,
== END 2022-01-20 16:42 | disposition home or self-care (01) ==
PROVIDERS: Emergency Provider Emergency Medicine; PCP Family Medicine; Visit Provider Emergency Medicine
DX: S30.0XXA Contusion of lower back and pelvis, initial encounter (principal); E11.9 Type 2 diabetes mellitus without complications; E78.5 Hyperlipidemia, unspecified; I10 Essential (primary) hypertension; K59.00 Constipation, unspecified; W18.30XA Fall on same level, unspecified, initial encounter
CPT/HCPCS: 72100; 73521; 99284

== ENCOUNTER → 2022-02-18 | Outpatient (CLI) | payer MEDICARE, SELFPAY ==
[2022-02-18 10:36] VITALS: BP 151/61; PULSE 65; RESP 16; TEMP 36.7; O2SAT 98; BMI 23.3
[2022-02-18] MEDS: 0.9% NaCl Peripheral Flush Adult/Peds IV (10:58)
[2022-02-18] MEDS: Zoledronic Acid 5 MG 100 ML 300 MG IV (10:58)
[2022-02-18] MEDS: 0.9% NaCl IVPB Med Flush (250 mL) 15 ML IV (10:58)
[2022-02-18 11:26] VITALS: BP 129/76; PULSE 62; RESP 16; TEMP 36.6; O2SAT 99
== END | disposition home or self-care (01) ==
LOC: MEDOUTP 10:29
PROVIDERS: PCP Family Medicine; Referring Provider Internal Medicine Endocrinology, Diabetes & Metabolism; Visit Provider Internal Medicine Endocrinology, Diabetes & Metabolism
DX: M81.0 Age-related osteoporosis without current pathological fracture (principal)
CPT/HCPCS: 96365; J7050; A4216; J3489

== ENCOUNTER 2022-02-20 13:17 | Observation (INO) | payer MEDICARE, SELFPAY ==
[2022-02-20 13:18] VITALS: BP 90/54; PULSE 80; RESP 94; TEMP 36.5; O2SAT 95; BMI 23.6
--- NOTE | 2022-02-20 13:43 | EKG12_ITS ---
Test Reason : Blood Pressure : / mmHG Vent. Rate : 067 BPM Atrial Rate : 067 BPM P-R Int : 180 ms QRS Dur : 088 ms QT Int : 426 ms P-R-T Axes : 063 003 079 degrees QTc Int : 450 ms Normal sinus rhythm with sinus arrhythmia Minimal voltage criteria for LVH, may be normal variant ( Everardo product ) Borderline ECG Confirmed by PRANEETH QUEEN, ROCHELLE ([id number]), offline editor MONA KEARNEY ([id number]) on 02/23/2022 11:20:31 AM Referred By: Confirmed By:ROCHELLE DACOSTA MD
--- NOTE | 2022-02-20 13:44 | EDS_ITS ---
HPI History of Present Illness Chief Complaint: General Illness Detail of Chief Complaint: Generalized weakness Informant: patient Narrative Narrative: Patient presents to the emergency department with generalized weakness today. Patient presents via EMS. Patient apparently was unable to get out of bed this morning and she called her grandson. Patient's daughter later came over and she was still in bed and patient was too weak to get out of bed. Patient states that she has history of chronic back pain with prior fusion at L4-5 which causes her some chronic pain issues. Patient also tells me she had some sort of an infusion of calcium she thinks that she gets about once every 5 years to help with her osteoporosis. Patient denies recent illness of fever or cough. She denies chest pain or shortness of breath. She denies abdominal pain. She denies urinary symptoms. She does state that she is incontinent and wears pads normally. [facility] Medical History Asthma Back pain Colitis Controlled diabetes mellitus with peripheral circulatory disorder Essential (primary) hypertension HLD (hyperlipidemia) Hypercalcemia Old anterior wall myocardial infarction Osteoarthritis Other chest pain Palpitations Takotsubo cardiomyopathy Home Medications ezetimibe 10 mg tablet (Zetia) 10 mg PO DAILY cholesterol 12/15/17 [History Last Taken 09/23/19 08:00] levothyroxine 112 mcg tablet 112 mcg PO DAILY@0600 thyroid 05/08/19 [History Last Taken 09/23/19 06:00] tramadol 50 mg tablet 50 mg PO BID pain 05/08/19 [History Last Taken 09/23/19 18:00] cyanocobalamin (vitamin B-12) 500 mcg chewable tablet 500 mcg PO DAILY supplement 09/24/19 [History Last Taken 09/23/19 08:00] meclizine 12.5 mg tablet 12.5 mg PO BID PRN PRN Vertigo #60 tabs 10/08/19 [Rx Last Taken Unknown] cholecalciferol (vitamin D3) 50 mcg (2,000 unit) tablet 2,000 unit PO DAILY brown pplement 10/25/19 [History Last Taken Unknown] multivitamin 1 tab PO DAILY 03/24/20 [History Last Taken Unknown] aspirin 81 mg tablet,delayed release (Adult Aspirin Regimen) 81 mg PO QDAY #30 tabs 08/13/21 [Rx Last Taken Unknown] amlodipine 2.5 mg tablet 2.5 mg PO DAILY #90 tabs 08/14/21 [Rx Last Taken Unknown] carvedilol 25 mg tablet 25 mg PO BID BP #180 tabs 09/11/21 [Rx Last Taken Unknown] lisinopril 20 mg tablet 20 mg PO DAILY #90 tabs 12/28/21 [Rx Last Taken Unknown] docusate sodium 100 mg capsule (Dulcolax Stool Softener (docusate)) 100 mg PO DAILY 12/31/21 [History Last Taken Unknown] zoledronic acid 5 mg/100 mL in mannitol 5 %-water intravenous piggybck 1 ea .Route ONCE #100 mL 01/07/22 [Rx Last Taken Unknown] azithromycin 250 mg tablet (Zithromax Z-Aftab) See Rx Instructions PO .COMPLEX #6 tabs 01/30/22 [Rx Last Taken Unknown] Allergy/AdvReac Type Severity Reaction Status Date / Time amoxicillin Allergy Unknown Verified 02/20/22 13:24 Anesthetics - Amide Type - Allergy Unknown Verified 02/20/22 13:24 Select A [Anesthetics - Amide Type] Anesthetics - Lizzette Type- Allergy Unknown Verified 02/20/22 13:24 Parabens [Anesthetics - Lizzette Type] Zlhxrkk-QDH-IrN Reductase AdvReac Myalgia Verified 02/20/22 13:24 Inhibitor [Xyuwjnb-Gyp-Ipb Reductase Inhibitor] Family History Father , age 83 Colon cancer Mother , age 90 CHF (congestive heart failure) Brother , age 68 Diabetes Sister CVA (cerebral vascular accident) Daughter Hypertension Daughter Thyroid disorder Surgical History History of back surgery (~2016) History of cholecystectomy (~2005) History of dilation and curettage (~1994) History of fractured pelvis (~2013) History of left heart catheterization (LHC) (03/2010) History of left hip replacement History of right hip replacement (~2016) History of tonsillectomy Social History Smoking Status: Never smoker how long ago did patient quit smokin alcohol intake: current alcohol intake frequency: holidays/special occasions only Alcohol type: wine substance use type: does not use diet: diabetic caffeine: No what type of physical activity do you participate in: other details: PT frequency: daily duration: 15-30 minutes/day seatbelt use: always do you feel safe at home: Yes ROS ROS ED Review of Systems ROS Unobtainable: other Constitutional Constitutional ED: Reports lethargy; Denies chills, fever(s), sweats or weight loss Eyes Eyes: Denies blurry vision, change in vision or diplopia ENT ENT ED: Denies rhinorrhea or sore throat Cardiovascular Cardiovascular: Denies chest pain, orthopnea or racing heartbeat Respiratory/Chest Respiratory/Chest: Denies cough, dyspnea, dyspnea on exertion, orthopnea or sputum Gastrointestinal Gastrointestinal: Denies abdominal pain, diarrhea, nausea or vomiting Genitourinary Genitourinary ED: Denies dysuria, hematuria or urinary frequency Musculoskeletal Musculoskeletal: Reports back pain; Denies arthralgias, myalgias or neck pain Integumentary Denies abscess, Abrasions or rash Neurologic Neurologic: Reports weakness; Denies headache(s) Psychiatric Psychiatric: Denies anxiety, depression or suicidal thoughts Endocrine Endocrinology: Denies polydipsia, polyphagia or polyuria Hematologic/Lymphatic Hematologic/Lymphatic: Denies easy bleeding, easy bruising or lymphadenopathy Allergic/Immunologic Allergic/Immunologic ED: Denies mouth swelling, tongue swelling or urticaria EXAM Physical Exam Const Vital Signs: 02/20/22 13:18 02/20/22 13:25 02/20/22 15:26 Temperature 97.7 F L Temperature Source Temporal Pulse Rate 80 Pulse Rate [Lying] 72 Pulse Rate [Sitting (for 1 minute prior to obtaining)] 78 Pulse Rate [Standing (for 1 minute prior to obtaining)] 73 Respiratory Rate 94 H Respiratory Effort Normal Respiratory Pattern Normal Blood Pressure 90/54 L Blood Pressure [Lying] 138/64 H Blood Pressure [Sitting (for 1 minute prior to obtaining)] 161/70 H Blood Pressure [Standing (for 1 minute prior to obtaining)] 172/86 H Blood Pressure Mean 66 Blood Pressure Mean [Lying] 88 Blood Pressure Mean [Sitting (for 1 minute prior to obtaining)] 100 Blood Pressure Mean [Standing (for 1 minute prior to obtaining)] 114 Pulse Ox 95 Oxygen Delivery Method Room Air 02/20/22 15:27 Temperature Temperature Source Pulse Rate 71 Pulse Rate [Lying] Pulse Rate [Sitting (for 1 minute prior to obtaining)] Pulse Rate [Standing (for 1 minute prior to obtaining)] Respiratory Rate 13 Respiratory Effort Respiratory Pattern Blood Pressure 138/64 H Blood Pressure [Lying] Blood Pressure [Sitting (for 1 minute prior to obtaining)] Blood Pressure [Standing (for 1 minute prior to obtaining)] Blood Pressure Mean 88 Blood Pressure Mean [Lying] Blood Pressure Mean [Sitting (for 1 minute prior to obtaining)] Blood Pressure Mean [Standing (for 1 minute prior to obtaining)] Pulse Ox 97 Oxygen Delivery Method Room Air Positive well nourished and well developed General Appearance ED: well developed and NAD HEENT Reports TM's clear and moist mucous membranes normocephalic and atraumatic; Negative for trauma or tenderness Tympanic Membrane ED: Yes TM's clear Eyes PERRL and EOMs intact bilaterally General Eye ED: Negative for pale conjunctiva or scleral icterus Neck no lymphadenopathy, supple and no JVD General: Negative for tenderness Chest Wall inspection of chest normal and palpation of chest normal Chest: Negative for tenderness Resp normal respiratory effort and clear to auscultation bilaterally Effort and Inspection: Negative for respiratory distress or pain with movement Auscultation: Negative for rhonchi, wheezes or diminished lung sounds Cardio regular rate, regular rhythm, S1 normal heart sound, S2 normal heart sound and no murmurs Peripheral Pulses: pulses 2+ throughout GI normal to inspection, nondistended, normoactive bowel sounds, soft to palpation, non-tender, non-distended and no masses Back/Spine no CVA tenderness and no thoracic nor lumbar tenderness Extremity normal to inspection General Extremety ED: Negative for edema General Extremity: Negative for edema Neuro oriented x3, CN's II-XII intact bilaterally, no sensory deficits noted and gait normal Sensorium / Orientation: awake, alert, oriented to person, oriented to place and oriented to time Motor Exam: strength 5/5 throughout and strength abnormal Psych mental status grossly normal Skin no rashes or lesions noted and no wounds MDM MDM MDM Narrative Medical decision making narrative: IV line established on arrival. Patient had a CBC with differential that was normal. Chemistries unremarkable. Urinalysis was normal. Patient was given a liter mostly of fluid bolus. We did do orthostatics and were negative. Patient attempted to ambulate in the department and could not stand on her own. At this point Case will be discussed with hospitalist evaluate patient for admission for this generalized weakness. Lab Data Attestation: I reviewed the patient's lab results. Labs: Laboratory Results - last 24 hr 02/20/22 02/20/22 02/20/22 13:46 13:46 14:15 WBC 8.3 RBC 4.08 L Hgb 11.9 L Hct 35.6 L MCV 87.3 MCH 29.2 MCHC 33.4 RDW Std Deviation 41.2 RDW Coeff of [place] 13.1 Plt Count 228 MPV 9.3 Immature Gran % (Auto) 0.200 Neut % (Auto) 77.2 H Lymph % (Auto) 15.5 L [place] % (Auto) 6.5 Eos % (Auto) 0.4 Baso % (Auto) 0.2 Absolute Neuts (auto) 6.4 Absolute Lymphs (auto) 1.29 Nucleated RBC % 0 Sodium 139 Potassium 3.4 L Chloride 107 Carbon Dioxide 29.0 Anion Gap 3 L BUN 16 Creatinine 0.38 L Estim Creat Clear Calc 33.12 Est GFR (MDRD) Af Amer 206 Est GFR (MDRD) Non-Af 171 BUN/Creatinine Ratio 42.0 H Glucose 105 Calcium 8.9 Troponin I High Sens 37 Urine Color Yellow Urine Clarity Sl. Cloudy Urine pH 7.0 Ur Specific [place] 1.005 Urine Protein Negative Urine Glucose (UA) Normal Urine Ketones 5 H Urine Occult Blood 50 H Urine Nitrite Negative Urine Bilirubin Negative Urine Urobilinogen Normal Ur Leukocyte Esterase 25 H Urine RBC 0-5 SEEN Urine WBC 0-5 SEEN Ur Squamous Epith Cells 0 SEEN Urine Bacteria 2+ Urine Mucus 0 SEEN EKG Initial EKG: Attestation: I personally reviewed and interpreted this EKG as follows: Comments: Sinus rhythm with rate of 67 bpm with no acute ST segment changes noted. Discharge Plan Dx/Rx/DC Orders Clinical Impression: Weakness, Acute exacerbation of chronic low back pain, History of hypertension, Inability to walk Disposition Disposition: Acute Care Hospital [facility]
[2022-02-20] MEDS: 0.9% Normal Saline 1,000 ML 1000 ML IV (13:53)
[2022-02-20 14:03] LABS: Absolute Lymphocyte Count 1.29 X10^3/uL (0.83-4.51); Absolute Neutrophil Count 6.4 X10^3/uL (2.0-7.7); Basophil# 0.02 X10^3/uL; Basophil% 0.2 % (0-1); Eosinophil# 0.03 X10^3/uL; Eosinophils% 0.4 % (0-5); Hematocrit 35.6 % (37-47); Hemoglobin 11.9 g/dL (12.0-15.0); Lymphocyte # 1.29 X10^3/ul (0.83-4.51); Lymphocyte % 15.5 % (19-41); Mean Corp Hgb Conc 33.4 g/dL (32-36); Mean Corpuscular Hgb 29.2 pg (27.0-32.0); Mean Corpuscular Volume 87.3 fL (81-99); Mean Platelet Vol. 9.3 fl (6.2-12.0); Monocyte# 0.54 X10^3/uL; Monocyte% 6.5 % (0-10); NRBC Flagged by Analyzer 0 % (0-5); Neutrophil # 6.44 X10^3/uL (2.7-7.7); Neutrophil % 77.2 % (47-70); Platelet Count 228 K/mm3 (150-450); RBC Distribution Width CV 13.1 % (11.6-14.6); RBC Distribution Width SD 41.2 fl (35.1-43.9); Red Blood Count 4.08 M/mm3 (4.2-5.4); White Blood Count 8.3 K/mm3 (4.4-11.0)
[2022-02-20 14:19] LABS: Color, Urine Yellow (Yellow); Glucose, Dipstick Normal (Normal); Ketone-Dipstick 5 mg/dl (Negative); Leukocyte Esterase-Dipstick 25 /ul (Negative); Mucous, Urine 0 SEEN /hpf (<or=2+); Nitrite-Dipstick Negative (Negative); Occult Blood-Urine 50 /ul (Negative); Protein-Dipstick Negative (Negative); Specific Gravity, Urine 1.005 (1.002-1.030); Squamous Epithelial Cells - UA 0 SEEN /hpf (5-10); Urine Bilirubin Dipstick Negative (Negative); Urine Clarity Sl. Cloudy (Clear); Urine Urobilinogen Normal (Normal)
[2022-02-20 14:20] LABS: Anion Gap 3 (5-15); BUN 16 mg/dL (7-18); Calcium,Total 8.9 mg/dL (8.5-10.1); Chloride 107 mmol/L (98-107); Creatinine, Serum 0.38 mg/dL (0.55-1.02); EST Glomerular Filtration Rate 171 mL/min (>60); Est Glom Filt Rate - Afr Amer 206 mL/min (>60); Estimated Creatinine Clearance 33.12 ml/min; Glucose 105 mg/dL (74-106); Potassium 3.4 mmol/L (3.5-5.1); Sodium Level 139 mmol/L (136-145); Troponin-I HS 37 pg/mL (3.0-54.0)
[2022-02-20 14:25] LABS: Bacteria 2+ /hpf (None Seen); Red Blood Cells-Urine 0-5 SEEN /hpf (0-5); White Blood Cells 0-5 SEEN /hpf (0-5)
[2022-02-20 15:26] VITALS: BP 138/64; BP 161/70; BP 172/86; PULSE 72; PULSE 73; PULSE 78
[2022-02-20 15:27] VITALS: BP 138/64; PULSE 71; RESP 13; O2SAT 97
--- NOTE | 2022-02-20 15:54 | HP.PCM.HOS_ITS ---
HPI - General General Date of Admission: 02/20/22 Date of Service: 02/20/22 Chief Complaint: Debility/Inability to ambulate HPI Narrative DELFINA AVILA, is a 86 F who presented to the emergency department [facility] on 12/23/2021 with weakness and the inability to ambulate. The daughter is at bedside at the time of my evaluation and reports that her mother is overall generally weak and intermittently has required therapy previously however this morning she was unable to get out of bed and perform anything independently. She had is on zoledronate IV infusion yesterday and they were warned that this could be a side effect of the medication. She has had no recent significant illnesses. She feels well otherwise and denies any pain that is limiting her mobility although she does have chronic low back pain and lower extremity joint pain. She denies any fever or chills, nausea vomiting, diarrhea and again states she was feeling fine up until this morning. Vital signs on presentation show temperature of 97.7, heart rate 80, blood pressure 138/64, respiratory rate of 13, sats are 97% on room air. CBC is unr emarkable. BMP is unremarkable other than some mild hypokalemia with a potassium level 3.4. EKG shows normal sinus rhythm with normal intervals and no ST-T wave changes consistent with acute ischemia. Her UA is not suggestive of urinary tract infection. Initial plan from the emergency department was to try to get her home however with her inability to ambulate or take care of her self independently at home she is unable to go home at this time. [facility] Medical History Asthma Back pain Colitis Controlled diabetes mellitus with peripheral circulatory disorder Essential (primary) hypertension HLD (hyperlipidemia) Hypercalcemia Old anterior wall myocardial infarction Osteoarthritis Other chest pain Palpitations Takotsubo cardiomyopathy Home Medications ezetimibe 10 mg tablet (Zetia) 10 mg PO DAILY cholesterol 12/15/17 [History Last Taken 09/23/19 08:00] levothyroxine 112 mcg tablet 112 mcg PO DAILY@0600 thyroid 05/08/19 [History La st Taken 09/23/19 06:00] tramadol 50 mg tablet 50 mg PO BID pain 05/08/19 [History Last Taken 09/23/19 18:00] cholecalciferol (vitamin D3) 50 mcg (2,000 unit) tablet 2,000 unit PO DAILY supplement 10/25/19 [History Last Taken Unknown] multivitamin 1 tab PO DAILY 03/24/20 [History Last Taken Unknown] carvedilol 25 mg tablet 25 mg PO BID BP #180 tabs 09/11/21 [Rx Last Taken Unknown] lisinopril 20 mg tablet 20 mg PO DAILY #90 tabs 12/28/21 [Rx Last Taken Unknown] docusate sodium 100 mg capsule (Dulcolax Stool Softener (docusate)) 100 mg PO DAILY 12/31/21 [History Last Taken Unknown] ibuprofen 200 mg tablet (Ibuprofen IB) 200 mg PO BID 02/20/22 [History Last Taken Unknown] Allergy/AdvReac Type Severity Reaction Status Date / Time amoxicillin Allergy Unknown Verified 02/20/22 13:24 Anesthetics - Amide Type - Allergy Unknown Verified 02/20/22 13:24 Select A [Anesthetics - Amide Type] Anesthetics - Lizzette Type- Allergy Unknown Verified 02/20/22 13:24 Parabens [Anesthetics - Lizzette Type] Mcoomif-UIZ-DaM Reductase AdvReac Myalgia Verified 02/20/22 13:24 Inhibitor [Qicnjls-Rcl-Fge Reductase Inhibitor] Family History Father , age 83 Colon cancer Mother , age 90 CHF (congestive heart failure) Brother , age 68 Diabetes Sister CVA (cerebral vascular accident) Daughter Hypertension Daughter Thyroid disorder Surgical History History of back surgery (~2016) History of cholecystectomy (~2005) History of dilation and curettage (~1994) History of fractured pelvis (~2013) History of left heart catheterization (LHC) (03/2010) History of left hip replacement History of right hip replacement (~2016) History of tonsillectomy Social History (Updated 02/20/22 @ 16:[address] Vonda Plummer DO) household members: none housing: house Smoking Status: Former smoker how long ago did patient quit smokin alcohol intake: current alcohol intake frequency: holidays/special occasions only Alcohol type: wine substance use type: does not use caffeine: No do you feel safe at home: Yes ROS Constitutional Constitutional: Reports weakness; Denies anorexia, change in weight, chills, fatigue, fever(s), malaise, night sweats or other Eyes Eyes: Denies blurry vision, change in eye color, change in vision, discharge from eye(s), double vision, erythema, eye pain, loss of vision or other ENT HEENT: Denies abnormal hearing, dysphagia, ear pain, epistaxis, headache(s), hearing loss, nasal congestion, nasal discharge, post nasal drip, sinus pressure, sore throat or other Cardiovascular Cardiovascular: Denies chest pain, claudication, dyspnea on exertion, edema, lightheadedness, orthopnea, palpitations, paroxysmal nocturnal dyspnea, rapid heart rate, syncope or other Respiratory/Chest Respiratory/Chest: Denies cough, dyspnea, excessive phlegm production, hemop tysis, productive cough, shortness of breath at rest, shortness of breath with exertion, wheezing or other Gastrointestinal Gastrointestinal: Denies abdominal pain, coffee ground emesis, constipation, diarrhea, dyspepsia, hematemesis, hematochezia, loose stools, melena, nausea, vomiting or other Genitourinary Genitourinary: Reports urinary incontinence; Denies burning urination, difficulty urinating, dysuria, hematuria, nocturia, urinary frequency, urinary hesitancy, urinary urgency or other Musculoskeletal Musculoskeletal: Reports back pain, joint pain and joint stiffness; Denies arthralgias, joint swelling, myalgias, neck pain or other Neurologic Neurologic: Denies abnormal gait, abnormal speech, confusion, disequilibrium, dizziness, focal weakness, headache(s), numbness, paresthesias, seizure-like activity, seizures, syncope, tingling, tremor(s) or other Psychiatric Psychiatric: Denies anxiety, depression, homicidal ideation, suicidal ideation or other Endocrine Endocrinology: Denies change in body appearance, cold intolerance, excessive sweating, heat intolerance, polydipsia, polyuria or other Hematologic/Lymphatic Hematologic/Lymphatic: Denies anemia, easy bleeding, easy bruising, lymphadenopathy or other Allergic/Immunologic Allergic/Immunologic: Denies rhinitis, hives, eczemia, asthma or other Vital Signs Vital Signs Vital Signs: 02/20/22 13:18 02/20/22 13:25 02/20/22 15:26 Temperature 97.7 F L Temperature Source Temporal Pulse Rate 80 Pulse Rate [Lying] 72 Pulse Rate [Sitting (for 1 minute prior to obtaining)] 78 Pulse Rate [Standing (for 1 minute prior to obtaining)] 73 Respiratory Rate 94 H Respiratory Effort Normal Respiratory Pattern Normal Blood Pressure 90/54 L Blood Pressure [Lying] 138/64 H Blood Pressure [Sitting (for 1 minute prior to obtaining)] 161/70 H Blood Pressure [Standing (for 1 minute prior to obtaining)] 172/86 H Blood Pressure Mean 66 Blood Pressure Mean [Lying] 88 Blood Pressure Mean [Sitting (for 1 minute prior to obtaining)] 100 Blood Pressure Mean [Standing (for 1 minute prior to obtaining)] 114 Pulse Ox 95 Oxygen Delivery Method Room Air 02/20/22 15:27 Temperature Temperature Source Pulse Rate 71 Pulse Rate [Lying] Pulse Rate [Sitting (for 1 minute prior to obtaining)] Pulse Rate [Standing (for 1 minute prior to obtaining)] Respiratory Rate 13 Respiratory Effort Respiratory Pattern Blood Pressure 138/64 H Blood Pressure [Lying] Blood Pressure [Sitting (for 1 minute prior to obtaining)] Blood Pressure [Standing (for 1 minute prior to obtaining)] Blood Pressure Mean 88 Blood Pressure Mean [Lying] Blood Pressure Mean [Sitting (for 1 minute prior to obtaining)] Blood Pressure Mean [Standing (for 1 minute prior to obtaining)] Pulse Ox 97 Oxygen Delivery Method Room Air Weight Weight: 58.5 kg Body Mass Index (BMI) 23.6 Physical Exam Const alert, oriented x3, no apparent distress, average body habitus and well nourished Constitutional Narrative: Elderly white female lying in bed, family at bedside, patient appears nontoxic and very comfortable, very pleasant General Appearance: cooperative HEENT normocephalic, head/scalp atraumatic and moist oral mucous membranes HEENT Narrative: Dentition is fair for age, few missing teeth, Mallampati is 2, no thrush, mild hearing loss Eyes PERRL, EOMs intact bilaterally and conjunctivae normal Eyes Narrative: No scleral icterus Neck no lymphadenopathy, supple, no JVD and no carotid bruits Neck Narrative: Trachea midline, no thyroid enlargement Resp normal respiratory effort, no retractions, no use of accessory muscles and clear to auscultation bilaterally Auscultation: Negative for crackles, rhonchi or wheezes Cardio regular rate, regular rhythm, S1 normal heart sound, no murmurs, no rub, no gallops and no clicks GI normal to inspection, nondistended, normoactive bowel sounds, soft to palpation and non-tender Extremity no clubbing, cyanosis or edema Extremity Narrative: 2+ pedal pulses Skin no rashes or lesions noted, no wounds, skin turgor normal, no jaundice, no petechiae and no mottling Neuro oriented x3, CN's II-XII intact bilaterally, moves all extremities and no focal motor deficits Neuro Narrative: Generalized weakness bilateral lower extremities greater than upper extremities and proximal greater than distal with no focal deficits, reflexes are 2+ upper and lower extremities, no sensory deficits Speech: speech normal Psych affect normal Psych Narrative: Extremely pleasant and appropriately interactive Results Lab / Micro Data Result Diagrams: 02/20/22 13:46 02/20/22 13:46 Labs: Laboratory Results - last 24 hr 02/20/22 13:46: WBC 8.3, RBC 4.08 L, Hgb 11.9 L, Hct 35.6 L, MCV 87.3, MCH 29.2, MCHC 33.4, RDW Std Deviation 41.2, RDW Coeff of Jay Jay 13.1, Plt Count 228, MPV 9.3, Immature Gran % (Auto) 0.200, Neut % (Auto) 77.2 H, Lymph % (Auto) 15.5 L, [place] % (Auto) 6.5, Eos % (Auto) 0.4, Baso % (Auto) 0.2, Absolute Neuts (auto) 6.4, Absolute Lymphs (auto) 1.29, Nucleated RBC % 0 02/20/22 13:46: Sodium 139, Potassium 3.4 L, Chloride 107, Carbon Dioxide 29.0, Anion Gap 3 L, BUN 16, Creatinine 0.38 L, Estim Creat Clear Calc 33.12, Est GFR (MDRD) Af Amer 206, Est GFR (MDRD) Non-Af 171, BUN/Creatinine Ratio 42.0 H, Glucose 105, Calcium 8.9, Troponin I High Sens 37 02/20/22 14:15: Urine Color Yellow, Urine Clarity Sl. Cloudy, Urine pH 7.0, Ur Specific [place] 1.005, Urine Protein Negative, Urine Glucose (UA) Normal, Urine Ketones 5 H, Urine Occult Blood 50 H, Urine Nitrite Negative, Urine Bilirubin Negative, Urine Urobilinogen Normal, Ur Leukocyte Esterase 25 H, Urine RBC 0-5 SEEN, Urine WBC 0-5 SEEN, Ur Squamous Epith Cells 0 SEEN, Urine Bacteria 2+, Urine Mucus 0 SEEN Micro: Microbiology 02/20/22 13:46 Nasal Secretion SARS-CoV-2 & FLU Antigen (Rapid) - Final Assessment & Plan Assessment/Plan (1) Debility: (2) Inability to walk: (3) Hypokalemia: PLAN: Plan Debility/inability to walk -Per family she has bouts intermittently where she has difficulty ambulating -Had zoledronate IV infusion yesterday and they are concerned that it may be related to this -She is to have them yearly for 5 years -Her current weakness may be related to her infusion received yesterday as lack of strength/loss of strength is a side effect of her is alendronate -She is not having any specific pain which is preventing ambulation or mobility -PT/OT consultations -Check CK -Patient/family is aware that she may need placed prior to coming home depending on progress in the process of discharge to skilled facility was reviewed with him prior to admission Hypokalemia -40 mill equivalents p.o. potassium -Repeat in a.m. Hypothyroidism -Check a.m. 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
[2022-02-20 16:02] VITALS: BP 163/69; PULSE 74; RESP 13; TEMP 37.1; O2SAT 98
[2022-02-20 16:30] VITALS: BMI 22.1
[2022-02-20 16:47] VITALS: BP 156/63; PULSE 76; RESP 18; TEMP 37; O2SAT 98
[2022-02-20 16:53] LABS: CPK Total, Creatine Kinase 121 U/L (26-192)
[2022-02-20] MEDS: Potassium Chloride Oral Tablet 20 MEQ 40 MEQ PO (16:59)
[2022-02-20 20:30] VITALS: BP 94/56; PULSE 66; RESP 16; TEMP 36.9; O2SAT 94
[2022-02-20] MEDS: Acetaminophen 500 MG Tablet 1000 MG PO (21:30)
[2022-02-20] MEDS: traMADol 50 MG Tablet PO (21:30)
[2022-02-21 02:10] VITALS: BP 125/59; PULSE 80; RESP 16; TEMP 36.4; O2SAT 97
[2022-02-21] MEDS: Levothyroxine 112 MCG Tablet 224 MCG PO (05:16)
[2022-02-21 06:01] LABS: Absolute Lymphocyte Count 1.25 X10^3/uL (0.83-4.51); Basophil# 0.03 X10^3/uL; Basophil% 0.5 % (0-1); Eosinophil# 0.13 X10^3/uL; Eosinophils% 2.2 % (0-5); Hematocrit 33.6 % (37-47); Lymphocyte # 1.25 X10^3/ul (0.83-4.51); Lymphocyte % 21.1 % (19-41); Mean Corp Hgb Conc 32.7 g/dL (32-36); Mean Corpuscular Hgb 29.6 pg (27.0-32.0); Mean Corpuscular Volume 90.3 fL (81-99); Mean Platelet Vol. 9.6 fl (6.2-12.0); Monocyte# 0.47 X10^3/uL; Monocyte% 7.9 % (0-10); NRBC Flagged by Analyzer 0 % (0-5); Neutrophil # 4.02 X10^3/uL (2.7-7.7); Platelet Count 202 K/mm3 (150-450); RBC Distribution Width CV 13.3 % (11.6-14.6); RBC Distribution Width SD 43.9 fl (35.1-43.9); Red Blood Count 3.72 M/mm3 (4.2-5.4); White Blood Count 5.9 K/mm3 (4.4-11.0)
[2022-02-21 06:41] LABS: ALB/GLOB Ratio 0.8 RATIO (0.9-2.4); AST(SGOT) 174 U/L (15-37); Alanine Aminotransfer ALT/SGPT 94 U/L (13-56); Albumin, Serum 2.8 g/dL (3.2-5.0); Alkaline Phosphatase 103 U/L (45-117); Anion Gap 4 (5-15); BUN 19 mg/dL (7-18); BUN/Creat Ratio 54.4 RATIO (10-20); Calcium,Total 8.2 mg/dL (8.5-10.1); Chloride 111 mmol/L (98-107); Creatinine, Serum 0.35 mg/dL (0.55-1.02); EST Glomerular Filtration Rate 189 mL/min (>60); Est Glom Filt Rate - Afr Amer 228 mL/min (>60); Estimated Creatinine Clearance 36.16 ml/min; Globulin 3.4 g/dL (2.2-4.2); Glucose 87 mg/dL (74-106); Phosphorus 2.1 mg/dL (2.5-4.9); Potassium 3.6 mmol/L (3.5-5.1); Protein, Total 6.2 g/dL (6.4-8.2); Sodium Level 141 mmol/L (136-145); Thyroid Stim Hormone (TSH) 0.49 uIU/mL (0.358-3.74)
[2022-02-21] MEDS: 0.9% Saline Lock 10 ML Syringe IV (08:00)
[2022-02-21] MEDS: Multivitamins,Therapeutic Tablet 1 TABLET PO (08:07)
[2022-02-21 08:12] VITALS: BP 120/68; PULSE 60; RESP 18; TEMP 36.5; O2SAT 97
[2022-02-21] MEDS: Ezetimibe 10 MG Tablet PO (10:39)
[2022-02-21] MEDS: Carvedilol 25 MG Tablet PO ×2 (10:39→21:03)
[2022-02-21] MEDS: Enoxaparin 40 MG/0.4 ML Syringe SC (10:39)
[2022-02-21] MEDS: Cholecalciferol (VIT D3) 25 MCG TABLET (1,000 UNITS) 50 MCG PO (10:39)
[2022-02-21] MEDS: Lisinopril 20 MG Tablet PO (10:39)
[2022-02-21] MEDS: traMADol 50 MG Tablet PO ×2 (10:41→21:03)
[2022-02-21 12:02] VITALS: O2SAT 97
--- NOTE | 2022-02-21 12:37 | PCM.PN.HOSP ---
Subjective Subjective Patient states she does feel better today however she still feels weak. She has not yet been out of bed either. She does not feel as tired and overall slept fairly well. Has not yet seen therapy. Objective Data Objective Data Vital Signs: Vital Signs Temp Pulse Resp BP Pulse Ox O2 Del Method 97.7 F L 60 18 120/68 97 Room Air 02/21/22 08:12 02/21/22 08:12 02/21/22 08:12 02/21/22 08:12 02/21/22 12:02 02/21/22 12:02 Oxygen Delivery Method Room Air Weight: 58.513 kg Body Mass Index (BMI) 22.1 Intake & Output: Intake and Output for Last 24 Hours 02/19/22 02/20/22 02/21/22 23:59 23:59 23:59 Intake Total 1000 / 1000 369.00 / 369.00 Output Total 550 / 550 Balance 1000 / 700 -181.00 / -181.00 Lab / Micro Data Result Diagrams: 02/21/22 04:52 02/21/22 04:52 Labs: Laboratory Results - last 24 hr 02/20/22 13:46: WBC 8.3, RBC 4.08 L, Hgb 11.9 L, Hct 35.6 L, MCV 87.3, MCH 29.2, MCHC 33.4, RDW Std Deviation 41.2, RDW Coeff of Jay Jay 13.1, Plt Count 228, MPV 9.3, Immature Gran % (Auto) 0.200, Neut % (Auto) 77.2 H, Lymph % (Auto) 15.5 L, Gonzales % (Auto) 6.5, Eos % (Auto) 0.4, Baso % (Auto) 0.2, Absolute Neuts (auto) 6.4, Absolute Lymphs (auto) 1.29, Nucleated RBC % 0 02/20/22 13:46: Sodium 139, Potassium 3.4 L, Chloride 107, Carbon Dioxide 29.0, Anion Gap 3 L, BUN 16, Creatinine 0.38 L, Estim Creat Clear Calc 33.12, Est GFR (MDRD) Af Amer 206, Est GFR (MDRD) Non-Af 171, BUN/Creatinine Ratio 42.0 H, Glucose 105, Calcium 8.9, Troponin I High Sens 37 02/20/22 13:46: Total Creatine Kinase 121 12/10/22 14:15: Urine Color Yellow, Urine Clarity Sl. Cloudy, Urine pH 7.0, Ur Specific [place] 1.005, Urine Protein Negative, Urine Glucose (UA) Normal, Urine Ketones 5 H, Urine Occult Blood 50 H, Urine Nitrite Negative, Urine Bilirubin Negative, Urine Urobilinogen Normal, Ur Leukocyte Esterase 25 H, Urine RBC 0-5 SEEN, Urine WBC 0-5 SEEN, Ur Squamous Epith Cells 0 SEEN, Urine Bacteria 2+, Urine Mucus 0 SEEN 02/21/22 04:52: WBC 5.9, RBC 3.72 L, Hgb 11.0 L, Hct 33.6 L, MCV 90.3, MCH 29.6, MCHC 32.7, RDW Std Deviation 43.9, RDW Coeff of Jay Jay 13.3, Plt Count 202, MPV 9.6, Immature Gran % (Auto) 0.300, Neut % (Auto) 68.0, Lymph % (Auto) 21.1, Gonzales % (Auto) 7.9, Eos % (Auto) 2.2, Baso % (Auto) 0.5, Absolute Neuts (auto) 4.0, Absolute Lymphs (auto) 1.25, Nucleated RBC % 0 02/21/22 04:52: Sodium 141, Potassium 3.6, Chloride 111 H, Carbon Dioxide 26.0, Anion Gap 4 L, BUN 19 H, Creatinine 0.35 L, Estim Creat Clear Calc 36.16, Est GFR (MDRD) Af Amer 228, Est GFR (MDRD) Non-Af 189, BUN/Creatinine Ratio 54.4 H, Glucose 87, Calcium 8.2 L, Phosphorus 2.1 L, Magnesium 2.0, Total Bilirubin 1.10 H, AST 174 H, ALT 94 H, Alkaline Phosphatase 103, Total Protein 6.2 L, Albumin 2.8 L, Globulin 3.4, Albumin/Globulin Ratio 0.8 L, TSH 0.49 Micro: Microbiology 02/20/22 13:46 Nasal Secretion SARS-CoV-2 & FLU Antigen (Rapid) - Final Physical Exam Const alert, oriented x3, no apparent distress, average body habitus and well nourished Constitutional Narrative: Elderly white female sitting up in bed, appears as if she feels like she has more energy today, patient appears nontoxic and very comfortable, very pleasant General Appearance: cooperative HEENT normocephalic, head/scalp atraumatic and moist oral mucous membranes HEENT Narrative: Dentition is poor, Mallampati is 2, no thrush Resp normal respiratory effort, no retractions, no use of accessory muscles and clear to auscultation bilaterally Auscultation: Negative for crackles, rhonchi or wheezes Cardio regular rate, regular rhythm, S1 normal heart sound, no murmurs, no rub, no gallops and no clicks GI normal to inspection, nondistended, normoactive bowel sounds, soft to palpation and non-tender Extremity no clubbing, cyanosis or edema Extremity Narrative: 2+ pedal pulses Neuro oriented x3, CN's II-XII intact bilaterally, moves all extremities and no focal motor deficits Neuro Narrative: Generalized weakness bilateral lower extremities greater than upper extremities and proximal greater than distal with no focal deficits, reflexes are 2+ upper and lower extremities, no sensory deficits Speech: speech normal Psych affect normal Psych Narrative: Extremely pleasant and appropriately interactive Assessment & Plan Assessment/Plan (1) Debility: (2) Inability to walk: (3) Hypokalemia: (4) Transaminitis: PLAN: Plan Debility/inability to walk -Per family she has bouts intermittently where she has difficulty ambulating -Had zoledronate IV infusion on 02/19/2022 and they are concerned that it may be related to this -She is to have them yearly for 5 years--> this appears to have been the first 1 -Her current weakness may be related to her infusion received yesterday as lack of strength/loss of strength is a side effect of her is zoledronate -She is not having any specific pain which is preventing ambulation or mobility -PT/OT consultations are still pending -CK is within normal limits -Patient/family is aware that she may need placed prior to coming home depending on progress in the process of discharge to skilled facility was reviewed with him prior to admission Hypokalemia - resolved Transaminitis -AST greater than ALT -? Related to medications -Repeat in a.m.--> and may need to pursue further work-up if do not trend down Hypothyroidism -TSH 0.49 on admission -Continue home levothyroxine Hypertension -Continue home carvedilol 25 mg p.o. 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
[2022-02-21] MEDS: Acetaminophen 500 MG Tablet 1000 MG PO (13:32)
[2022-02-21 14:15] VITALS: BP 99/49; PULSE 62; RESP 18; TEMP 36.7; O2SAT 98
[2022-02-21 20:00] VITALS: BP 155/79; PULSE 66; RESP 16; TEMP 36.8; O2SAT 97
[2022-02-22 02:00] VITALS: BP 150/82; PULSE 64; RESP 16; TEMP 36.6; O2SAT 99
[2022-02-22] MEDS: Levothyroxine 112 MCG Tablet PO (05:16)
[2022-02-22 08:00] VITALS: O2SAT 97
[2022-02-22] MEDS: Multivitamins,Therapeutic Tablet 1 TABLET PO (08:50)
[2022-02-22 10:30] VITALS: BP 128/59; PULSE 70; RESP 18; TEMP 36.5; O2SAT 100
[2022-02-22] MEDS: Lisinopril 20 MG Tablet PO (10:32)
[2022-02-22] MEDS: Cholecalciferol (VIT D3) 25 MCG TABLET (1,000 UNITS) 50 MCG PO (10:32)
[2022-02-22] MEDS: Carvedilol 25 MG Tablet PO ×2 (10:32→20:53)
[2022-02-22] MEDS: Ezetimibe 10 MG Tablet PO (10:32)
[2022-02-22] MEDS: Enoxaparin 40 MG/0.4 ML Syringe SC (10:32)
[2022-02-22] MEDS: traMADol 50 MG Tablet PO ×2 (10:40→20:53)
--- NOTE | 2022-02-22 10:45 | CASEMGMT ---
Social Work? SW in to meet with pt following update from Dr and therapy team that pt will need placement at nursing facility. SW? introduced self and role at the hospital. Pt agreeable to discussing discharge planning. A list of SNF providers including quality and resource use data and consistent with the patient?s preferred geographic region, medical needs, and insurance network were provided from the [facility] Guide. Pt reviewed list. Stated [facility] then [facility]. ALEXANDER gained permission to call pt son, Jaden to update on discharge plan. SW called Jaden. Blank voicemail with woman's voice answered. SW did not leave a message to protect pt privacy. ALEXANDER informed [facility] Norris, Discharge high school assistant football coach of pt choice. [facility] has no beds. Referral will be sent to [facility]. PLAN:[facility], pending acceptance and precert LASHELL Olguin?
--- NOTE | 2022-02-22 10:58 | CASEMGMT ---
Discharge Fire Patroller This copywriter called [facility] No beds at this time. This copywriter sent referral to [facility] via [facility]. This copywriter called [facility] and [facility] is out today. This copywriter spoke with Christina. Andrews BUSTOS Spray Painting Machine Operator
--- NOTE | 2022-02-22 11:05 | CASEMGMT ---
YOANDY JOHNSON Assessment: Face to Face with pt for initial transition planning/care coordination assessment. YOANDY JOHNSON introduced self and role at [facility], pt voices understanding and consents to assessment. Pt is A/O x4 and answers all questions appropriately at this time. Pt sitting up in chair in no distress. Care providers, pharmacy, and demographics verified/updated. Admitting Dx: debility and inability to ambulate PCP:Leonel Specialists:mary Aguirre but supposed to see Dr. Anderson this week; abram Casas; Lavon, cardio; Candida chiro Preferred Pharm[facility]: [facility] Prescription Benefit: yes LNOK: Jaden Fulton, son; Jayant Doecock, sig other Living Arrangements: Pt lives alone in a single story house with 3 steps to enter with grab bars. Pt reports she is indep with bathing but likes to have someone at the home for safety. She can dress herself but sometimes her sig other will lay her clothes out. Pt denies concerns at home. Transportation: Ptdoes not drive. She states her son or sig other transports her to medical appts. DME/HHC/SNF: Pt has a rollator, BSC, w/c, high rise toilets and grab bars in the bathroom. Pt states she pays privately for 2-3x/wk for someone to provide cooking and cleaning. Her dtrs take turns spending the nights on Saturdays. Her sig other comes daily 5p-9p. Pt has had HHC through [facility] but states she did not feel it was intensive enough. Pt has been to [facility] in the past. Pt states she does feel she needs more intensive therapy at me and is willing to go a SNF. Pt has already been provided a list by ALEXANDER. Pt states no further concerns/needs. CM to follow. Advised pt to ask CM if any further question/concerns/needs arise, voices understanding. Pt Goal: SNF Plan: SNF
--- NOTE | 2022-02-22 13:54 | CASEMGMT ---
Discharge Air Carrier Inspector [facility] accepted. Pre-cert will be started. Andrews BUSTOS Cloth Washer
--- NOTE | 2022-02-22 14:52 | PN.HOSP_ITS ---
Subjective Subjective Patient seen and examined. She had no active complaints. She has been working with physical therapy. Review of systems is otherwise negative. Objective Data Objective Data Vital Signs: Vital Signs Temp Pulse Resp BP Pulse Ox O2 Del Method 97.7 F L 70 18 128/59 H 100 Room Air 02/22/22 10:30 02/22/22 10:30 02/22/22 10:30 02/22/22 10:30 02/22/22 10:30 02/22/22 10:30 Oxygen Delivery Method Room Air Weight: 129 lb Body Mass Index (BMI) 22.1 Intake & Output: Intake and Output for Last 24 Hours 02/20/22 02/21/22 02/22/22 23:59 23:59 23:59 Intake Total 1000 / 1000 369.00 / 369.00 Output Total 550 / 550 Balance 1000 / 700 -181.00 / -181.00 - -1 Lab / Micro Data Result Diagrams: 02/21/22 04:52 02/21/22 04:52 Micro: Microbiology 02/20/22 13:46 Nasal Secretion SARS-CoV-2 & FLU Antigen (Rapid) - Final Physical Exam Const alert, oriented x3, no apparent distress and average body habitus HEENT head/scalp atraumatic, moist oral mucous membranes and oropharynx normal Head and Scalp: normocephalic Mouth: oral and palatal mucosa normal Eyes PERRL, EOMs intact bilaterally and conjunctivae normal Neck no lymphadenopathy and supple Resp normal respiratory effort, no retractions, no use of accessory muscles and clear to auscultation bilaterally Cardio regular rate, regular rhythm, S1 normal heart sound, S2 normal heart sound and no murmurs GI normal to inspection, nondistended, normoactive bowel sounds, soft to palpation, non-tender and non-distended Extremity normal to inspection, full ROM and no clubbing, cyanosis or edema Neuro oriented x3, CN's II-XII intact bilaterally, moves all extremities and no focal motor deficits Sensorium / Orientation: awake and alert Motor Exam: strength 5/5 throughout Psych affect normal Assessment & Plan Assessment/Plan (1) Inability to walk: (2) Hypokalemia: PLAN: Plan #Debility * has been having difficulty walking * PT.OT on board. Fall precautions * she had been feeling quite weak at home, and had been unable to walk. * now working well with physical therapy. * #Hypokalemia: resolved #Hypertension: on carvedilol and lisinopril #Hypothyroidism: on synthroid #Osteoporosis: on vitamin D and yearly zolendronic acid #History of Takotsubo cardiomyopathy * EF of 65% with stage II diastolic dysfunction. * #Chronic pain due to osteoporosis and spinal stenosis: on pain tramadol and tyle nol as well as ibuprofen DVT prophylaxis: lovenox Disposition; awaiting placement Charges/Coding Visit Charges Inpatient E&M: 81735 Subs Hosp L2
[2022-02-22 15:53] VITALS: BP 146/55; PULSE 61; RESP 16; TEMP 36.5; O2SAT 100
[2022-02-22] MEDS: Acetaminophen 500 MG Tablet 1000 MG PO (20:53)
[2022-02-22 20:55] VITALS: BP 135/56; PULSE 62; RESP 16; TEMP 36.7; O2SAT 97
[2022-02-23 02:55] VITALS: BP 155/73; PULSE 61; RESP 16; TEMP 36.9; O2SAT 98
[2022-02-23] MEDS: Levothyroxine 112 MCG Tablet PO (04:55)
[2022-02-23 06:09] LABS: Absolute Lymphocyte Count 1.17 X10^3/uL (0.83-4.51); Absolute Neutrophil Count 2.2 X10^3/uL (2.0-7.7); Basophil# 0.03 X10^3/uL; Basophil% 0.8 % (0-1); Eosinophil# 0.18 X10^3/uL; Eosinophils% 4.5 % (0-5); Hematocrit 37.4 % (37-47); Hemoglobin 12.2 g/dL (12.0-15.0); Lymphocyte # 1.17 X10^3/ul (0.83-4.51); Lymphocyte % 29.5 % (19-41); Mean Corp Hgb Conc 32.6 g/dL (32-36); Mean Corpuscular Hgb 29.1 pg (27.0-32.0); Mean Corpuscular Volume 89.3 fL (81-99); Mean Platelet Vol. 9.2 fl (6.2-12.0); Monocyte# 0.35 X10^3/uL; Monocyte% 8.8 % (0-10); NRBC Flagged by Analyzer 0 % (0-5); Neutrophil # 2.21 X10^3/uL (2.7-7.7); Neutrophil % 55.9 % (47-70); Platelet Count 261 K/mm3 (150-450); RBC Distribution Width CV 13.2 % (11.6-14.6); RBC Distribution Width SD 43.4 fl (35.1-43.9); Red Blood Count 4.19 M/mm3 (4.2-5.4)
[2022-02-23 06:41] LABS: Anion Gap 4 (5-15); BUN 25 mg/dL (7-18); BUN/Creat Ratio 57.2 RATIO (10-20); Calcium,Total 8.7 mg/dL (8.5-10.1); Chloride 111 mmol/L (98-107); Creatinine, Serum 0.44 mg/dL (0.55-1.02); EST Glomerular Filtration Rate 146 mL/min (>60); Est Glom Filt Rate - Afr Amer 176 mL/min (>60); Estimated Creatinine Clearance 36.16 ml/min; Glucose 102 mg/dL (74-106); Potassium 3.5 mmol/L (3.5-5.1); Sodium Level 142 mmol/L (136-145)
[2022-02-23 07:03] VITALS: O2SAT 96
[2022-02-23 09:47] VITALS: BP 122/90; PULSE 68; RESP 16; TEMP 36.7; O2SAT 98
[2022-02-23] MEDS: traMADol 50 MG Tablet PO ×2 (09:54→21:10)
[2022-02-23] MEDS: Acetaminophen 500 MG Tablet 1000 MG PO ×2 (09:54→21:09)
[2022-02-23] MEDS: Cholecalciferol (VIT D3) 25 MCG TABLET (1,000 UNITS) 50 MCG PO (09:55)
[2022-02-23] MEDS: Multivitamins,Therapeutic Tablet 1 TABLET PO (09:55)
[2022-02-23] MEDS: Enoxaparin 40 MG/0.4 ML Syringe SC (09:55)
[2022-02-23] MEDS: Carvedilol 25 MG Tablet PO ×2 (09:55→21:09)
[2022-02-23] MEDS: Lisinopril 20 MG Tablet PO (09:56)
[2022-02-23] MEDS: Ezetimibe 10 MG Tablet PO (09:56)
--- NOTE | 2022-02-23 13:51 | CASEMGMT ---
Social Work SW in to update pt on SNF process. SW informed pt [facility] unable to accept. SW shared [facility] accepted and began insurance authorization this morning. Pt voiced understanding. Pt made aware auth can take 24-48 hours or more in some cases. PLAN: [facility], pending precert LASHELL Olguin
[2022-02-23 14:39] VITALS: BP 121/51; PULSE 56; RESP 16; TEMP 36.7; O2SAT 99
--- NOTE | 2022-02-23 14:48 | PN.HOSP_ITS ---
Subjective Subjective Patient seen and examined. She has no complaints today and had an uneventful night. Review of systems is otherwise negative. She is awaiting placement. Objective Data Objective Data Vital Signs: Vital Signs Temp Pulse Resp BP Pulse Ox O2 Del Method 98.1 F 56 L 16 121/51 H 99 Room Air 02/23/22 14:39 02/23/22 14:39 02/23/22 14:39 02/23/22 14:39 02/23/22 14:39 02/23/22 14:39 Oxygen Delivery Method Room Air Weight: 129 lb Body Mass Index (BMI) 22.1 Intake & Output: Intake and Output for Last 24 Hours 02/21/22 02/22/22 02/23/22 23:59 23:59 23:59 Intake Total 369.00 / 369.00 550 / 750 800 / 800 Output Total 550 / 550 Balance -181.00 / -181.00 549 / 749 800 / 800 Lab / Micro Data Result Diagrams: 02/23/22 05:55 02/23/22 05:55 Labs: Laboratory Results - last 24 hr 02/23/22 05:55: WBC 4.0 L, RBC 4.19 L, Hgb 12.2, Hct 37.4, MCV 89.3, MCH 29.1, MCHC 32.6, RDW Std Deviation 43.4, RDW Coeff of Jay Jay 13.2, Plt Count 261, MPV 9.2, Immature Gran % (Auto) 0.500, Neut % (Auto) 55.9, Lymph % (Auto) 29.5, Hendricks % (Auto) 8.8, Eos % (Auto) 4.5, Baso % (Auto) 0.8, Absolute Neuts (auto) 2.2, Absolute Lymphs (auto) 1.17, Nucleated RBC % 0 02/23/22 05:55: Sodium 142, Potassium 3.5, Chloride 111 H, Carbon Dioxide 27.0, Anion Gap 4 L, BUN 25 H, Creatinine 0.44 L, Estim Creat Clear Calc 36.16, Est GFR (MDRD) Af Amer 176, Est GFR (MDRD) Non-Af 146, BUN/Creatinine Ratio 57.2 H, Glucose 102, Calcium 8.7 Micro: Microbiology 02/20/22 13:46 Nasal Secretion SARS-CoV-2 & FLU Antigen (Rapid) - Final Physical Exam Const alert, oriented x3 and no apparent distress General Appearance: cooperative HEENT normocephalic, head/scalp atraumatic, moist oral mucous membranes and oropharynx normal Head and Scalp: normocephalic Mouth: oral and palatal mucosa normal Eyes PERRL, EOMs intact bilaterally and conjunctivae normal Neck no lymphadenopathy, supple, no JVD and no carotid bruits Resp normal respiratory effort, no retractions, no use of accessory muscles and clear to auscultation bilaterally Auscultation: Negative for crackles, rhonchi or wheezes Cardio regular rate, regular rhythm, S1 normal heart sound, S2 normal heart sound, no murmurs, no rub, no gallops and no clicks GI normal to inspection, nondistended, normoactive bowel sounds, soft to palpation, non-tender and non-distended Extremity normal to inspection, full ROM and no clubbing, cyanosis or edema Extremity Narrative: 2+ pedal pulses Skin no rashes or lesions noted, no wounds, skin turgor normal, no jaundice, no petechiae and no mottling Neuro oriented x3, CN's II-XII intact bilaterally, moves all extremities and no focal motor deficits Sensorium / Orientation: awake and alert Speech: speech normal Motor Exam: strength 5/5 throughout Psych affect normal Assessment & Plan Assessment/Plan (1) Inability to walk: (2) Hypokalemia: PLAN: Plan #Debility * PT.OT on board. Fall precautions * she had been feeling quite weak at home, and had been unable to walk. * now working well with physical therapy. * #Hypokalemia: resolved #Hypertension: on carvedilol and lisinopril #Hypothyroidism: on synthroid #Osteoporosis: on vitamin D and yearly zolendronic acid #History of Takotsubo cardiomyopathy * EF of 65% with stage II diastolic dysfunction. * #Chronic pain due to osteoporosis and spinal stenosis: on pain tramadol and tylenol as well as ibuprofen DVT prophylaxis: lovenox Disposition; awaiting placement Charges/Coding Visit Charges Inpatient E&M: 58948 Subs Hosp L2
[2022-02-24 02:45] VITALS: BP 147/77; PULSE 62; RESP 16; TEMP 36.8; O2SAT 100
[2022-02-24] MEDS: Levothyroxine 112 MCG Tablet PO (05:40)
[2022-02-24] MEDS: Acetaminophen 500 MG Tablet 1000 MG PO ×3 (05:40→21:11)
[2022-02-24 06:29] LABS: Absolute Lymphocyte Count 1.46 X10^3/uL (0.83-4.51); Absolute Neutrophil Count 1.5 X10^3/uL (2.0-7.7); Basophil# 0.03 X10^3/uL; Basophil% 0.8 % (0-1); Eosinophil# 0.18 X10^3/uL; Hematocrit 34.7 % (37-47); Hemoglobin 11.3 g/dL (12.0-15.0); Lymphocyte # 1.46 X10^3/ul (0.83-4.51); Lymphocyte % 40.3 % (19-41); Mean Corp Hgb Conc 32.6 g/dL (32-36); Mean Corpuscular Hgb 28.8 pg (27.0-32.0); Mean Corpuscular Volume 88.3 fL (81-99); Mean Platelet Vol. 9.3 fl (6.2-12.0); Monocyte# 0.42 X10^3/uL; Monocyte% 11.6 % (0-10); NRBC Flagged by Analyzer 0 % (0-5); Neutrophil # 1.52 X10^3/uL (2.7-7.7); Platelet Count 237 K/mm3 (150-450); RBC Distribution Width CV 13.2 % (11.6-14.6); Red Blood Count 3.93 M/mm3 (4.2-5.4); White Blood Count 3.6 K/mm3 (4.4-11.0)
[2022-02-24 06:57] LABS: Anion Gap 2 (5-15); BUN 27 mg/dL (7-18); BUN/Creat Ratio 67.7 RATIO (10-20); Calcium,Total 9.4 mg/dL (8.5-10.1); Chloride 110 mmol/L (98-107); EST Glomerular Filtration Rate 162 mL/min (>60); Est Glom Filt Rate - Afr Amer 196 mL/min (>60); Estimated Creatinine Clearance 36.16 ml/min; Glucose 94 mg/dL (74-106); Potassium 3.9 mmol/L (3.5-5.1); Sodium Level 142 mmol/L (136-145)
[2022-02-24 08:44] VITALS: BP 183/81; PULSE 62; RESP 18; TEMP 36.9; O2SAT 100
[2022-02-24] MEDS: Ezetimibe 10 MG Tablet PO (08:47)
[2022-02-24] MEDS: Cholecalciferol (VIT D3) 25 MCG TABLET (1,000 UNITS) 50 MCG PO (08:47)
[2022-02-24] MEDS: Carvedilol 25 MG Tablet PO ×2 (08:47→21:11)
[2022-02-24] MEDS: Lisinopril 20 MG Tablet PO (08:47)
[2022-02-24] MEDS: Multivitamins,Therapeutic Tablet 1 TABLET PO (08:48)
[2022-02-24] MEDS: Enoxaparin 40 MG/0.4 ML Syringe SC (08:48)
[2022-02-24] MEDS: Senna/Docusate Sodium 1 Tablet 2 TABLET PO (08:49)
[2022-02-24] MEDS: traMADol 50 MG Tablet PO ×2 (08:49→21:11)
--- NOTE | 2022-02-24 10:30 | CASEMGMT ---
Discharge Farmer Vegetable This customs entry writer reached out to [facility] via [facility]. No response so this customs entry writer called [facility]. Pre-cert still pending. Andrews BUSTOS Early Childhood Associate
--- NOTE | 2022-02-24 11:08 | PN.HOSP_ITS ---
Subjective Subjective Patient seen and examined. She had no complaints today and had been working well with physical therapy. BP is a bit elevated today. Review of systems is otherwise negative. She is awaiting placement. Objective Data Objective Data Vital Signs: Vital Signs Temp Pulse Resp BP Pulse Ox O2 Del Method 98.5 F 62 18 183/81 H 100 Room Air 02/24/22 08:44 02/24/22 08:44 02/24/22 08:44 02/24/22 08:44 02/24/22 08:44 02/24/22 08:44 Oxygen Delivery Method Room Air Weight: 129 lb Body Mass Index (BMI) 22.1 Intake & Output: Intake and Output for Last 24 Hours 02/22/22 02/23/22 02/24/22 23:59 23:59 23:59 Intake Total 550 / 750 1300 / 1300 Output Total Balance 549 / 749 1300 / 1300 Lab / Micro Data Result Diagrams: 02/24/22 06:05 02/24/22 06:05 Labs: Laboratory Results - last 24 hr 02/24/22 06:05: WBC 3.6 L, RBC 3.93 L, Hgb 11.3 L, Hct 34.7 L, MCV 88.3, MCH 28.8, MCHC 32.6, RDW Std Deviation 43.0, RDW Coeff of Jay Jay 13.2, Plt Count 237, MPV 9.3, Immature Gran % (Auto) 0.300, Neut % (Auto) 42.0 L, Lymph % (Auto) 40.3, [place] % (Auto) 11.6 H, Eos % (Auto) 5.0, Baso % (Auto) 0.8, Absolute Neuts (auto) 1.5 L, Absolute Lymphs (auto) 1.46, Nucleated RBC % 0 02/24/22 06:05: Sodium 142, Potassium 3.9, Chloride 110 H, Carbon Dioxide 30.0, Anion Gap 2 L, BUN 27 H, Creatinine 0.40 L, Estim Creat Clear Calc 36.16, Est GFR (MDRD) Af Amer 196, Est GFR (MDRD) Non-Af 162, BUN/Creatinine Ratio 67.7 H, Glucose 94, Calcium 9.4 Micro: Microbiology 02/20/22 13:46 Nasal Secretion SARS-CoV-2 & FLU Antigen (Rapid) - Final Physical Exam Const alert, oriented x3, no apparent distress, average body habitus and well nourished General Appearance: cooperative HEENT normocephalic, head/scalp atraumatic, moist oral mucous membranes and oropharynx normal Head and Scalp: normocephalic Mouth: oral and palatal mucosa normal Eyes PERRL, EOMs intact bilaterally and conjunctivae normal Eyes Narrative: No scleral icterus Neck no lymphadenopathy, supple, no JVD and no carotid bruits Resp normal respiratory effort, no retractions, no use of accessory muscles and clear to auscultation bilaterally Auscultation: Negative for crackles, rhonchi or wheezes Cardio regular rate, regular rhythm, S1 normal heart sound, S2 normal heart sound, no murmurs, no rub, no gallops and no clicks GI normal to inspection, nondistended, normoactive bowel sounds, soft to palpation, non-tender and non-distended Extremity normal to inspection, full ROM and no clubbing, cyanosis or edema Skin no rashes or lesions noted, no wounds, skin turgor normal, no jaundice, no petechiae and no mottling Neuro oriented x3, CN's II-XII intact bilaterally, moves all extremities and no focal motor deficits Sensorium / Orientation: awake and alert Coordination / Balance: [id number] test normal Speech: speech normal Motor Exam: strength 5/5 throughout Psych affect normal Psych Narrative: Extremely pleasant and appropriately interactive Assessment & Plan Assessment/Plan (1) Inability to walk: (2) Hypokalemia: PLAN: Plan #Debility * PT.OT on board. Fall precautions * she had been feeling quite weak at home, and had been unable to walk. * now working well with physical therapy. * #Hypokalemia: resolved #Hypertension: on carvedilol and lisinopril. BP has been elevated. Also on amlodipine; will resume. IV hydralazine prn #Hypothyroidism: on synthroid #Osteoporosis: on vitamin D and yearly zolendronic acid #History of Takotsubo cardiomyopathy * EF of 65% with stage II diastolic dysfunction. * #Chronic pain due to osteoporosis and spinal stenosis: on pain tramadol and tylenol as well as ibuprofen DVT prophylaxis: lovenox Disposition; awaiting placement Charges/Coding Visit Charges Inpatient E&M: 16168 Subs Hosp L2
[2022-02-24] MEDS: amLODIPine 2.5 MG Tablet PO (12:04)
--- NOTE | 2022-02-24 13:57 | CASEMGMT ---
Social Work SW reached out to [facility] to check on pt insurance auth. Spoke to Isadora Justin. Isadora checked precert and stated it was received this morning but the bed that was for pt is not yet open and pt cannot admit this day. Isadora stated bed will be open tomorrow for pt. ALEXANDER updated pt doctor of plan for pt to go to SNF tomorrow. PLAN: [facility], tomorrow when bed opens. LASHELL Olguin
--- NOTE | 2022-02-24 14:17 | CASEMGMT ---
Social Work SW in to inform pt of insurance auth and plan to admit to SNF tomorrow when bed opens. Pt voiced understanding, asked questions regarding transport and other discharge details. SW asked pt if there was family to be updated on discharge plan. Pt asked SW to call son, Jaden. SW called number for Jaden on pt facesheet and received VM with female voice. SW left message requesting call back and provided call back number. SW did not leave details of pt case on VM in case wrong number. PLAN: Ad[facility] to [facility], tomorrow LASHELL Olguin
[2022-02-24 15:17] VITALS: BP 157/75; PULSE 61; RESP 18; TEMP 36.8; O2SAT 97
[2022-02-24 21:08] VITALS: BP 156/77; PULSE 66; RESP 16; TEMP 36.6; O2SAT 99
[2022-02-25 03:00] VITALS: BP 150/92; PULSE 59; RESP 16; TEMP 36.6; O2SAT 98
[2022-02-25] MEDS: Levothyroxine 112 MCG Tablet PO (05:58)
[2022-02-25 07:17] LABS: Absolute Neutrophil Count 1.9 X10^3/uL (2.0-7.7); Basophil# 0.04 X10^3/uL; Basophil% 1.1 % (0-1); Eosinophil# 0.19 X10^3/uL; Eosinophils% 5.1 % (0-5); Hematocrit 38.4 % (37-47); Hemoglobin 12.4 g/dL (12.0-15.0); Lymphocyte % 35.1 % (19-41); Mean Corp Hgb Conc 32.3 g/dL (32-36); Mean Corpuscular Hgb 28.6 pg (27.0-32.0); Mean Corpuscular Volume 88.7 fL (81-99); Mean Platelet Vol. 9.2 fl (6.2-12.0); Monocyte# 0.31 X10^3/uL; Monocyte% 8.4 % (0-10); NRBC Flagged by Analyzer 0 % (0-5); Neutrophil # 1.85 X10^3/uL (2.7-7.7); Platelet Count 278 K/mm3 (150-450); RBC Distribution Width CV 13.1 % (11.6-14.6); RBC Distribution Width SD 42.6 fl (35.1-43.9); Red Blood Count 4.33 M/mm3 (4.2-5.4); White Blood Count 3.7 K/mm3 (4.4-11.0)
[2022-02-25 07:46] LABS: Anion Gap 5 (5-15); BUN 21 mg/dL (7-18); BUN/Creat Ratio 50.6 RATIO (10-20); Calcium,Total 9.7 mg/dL (8.5-10.1); Chloride 107 mmol/L (98-107); Creatinine, Serum 0.42 mg/dL (0.55-1.02); EST Glomerular Filtration Rate 155 mL/min (>60); Est Glom Filt Rate - Afr Amer 187 mL/min (>60); Estimated Creatinine Clearance 36.16 ml/min; Glucose 88 mg/dL (74-106); Potassium 3.7 mmol/L (3.5-5.1); Sodium Level 141 mmol/L (136-145)
[2022-02-25 07:55] VITALS: BP 144/82; PULSE 62; RESP 18; TEMP 36.6; O2SAT 99
[2022-02-25] MEDS: Enoxaparin 40 MG/0.4 ML Syringe SC (07:58)
[2022-02-25] MEDS: Multivitamins,Therapeutic Tablet 1 TABLET PO (07:59)
[2022-02-25] MEDS: amLODIPine 2.5 MG Tablet PO (07:59)
[2022-02-25] MEDS: Carvedilol 25 MG Tablet PO (07:59)
[2022-02-25] MEDS: Cholecalciferol (VIT D3) 25 MCG TABLET (1,000 UNITS) 50 MCG PO (07:59)
[2022-02-25] MEDS: Ezetimibe 10 MG Tablet PO (07:59)
[2022-02-25] MEDS: Lisinopril 20 MG Tablet PO (07:59)
--- NOTE | 2022-02-25 09:28 | TREXTCAR_ITS ---
Diet Diet Order/Speech Therapy: 02/20/22 16:41 Diet: Cardiac - Heart Healthy Food consistency:: Regular Liquid Consistency:: Regular/Thin Is pt able to select menu?: Yes Routine Orders/Code Status Enema Type: Fleetz Enema Frequency: Daily PRN Suppository Type: Dulcolax 10mg Suppository Frequency: Daily PRN O2 Frequency: PRN Keep PO Greater than or Equal to (%): 90 Therapies Weight Bearing: Weight bearing as tolerated Physical Therapy: Eval and Treat Occupational Therapy: Eval and Treat Problem/Diagnosis (1) Inability to walk: Status: Acute Code(s): R26.2 - Difficulty in walking, not elsewhere classified (2) Hypokalemia: Status: Acute Code(s): E87.6 - Hypokalemia Plan #Debility * PT.OT on board. Fall precautions * she had been feeling quite weak at home, and had been unable to walk. * now working well with physical therapy. * #Hypokalemia: resolved #Hypertension: on carvedilol and lisinopril. BP has been elevated. Also on amlodipine; will resume. IV hydralazine prn #Hypothyroidism: on synthroid #Osteoporosis: on vitamin D and yearly zolendronic acid #History of Takotsubo cardiomyopathy * EF of 65% with stage II diastolic dysfunction. * #Chronic pain due to osteoporosis and spinal stenosis: on pain tramadol and tylenol as well as ibuprofen DVT prophylaxis: lovenox Disposition; awaiting placement Allergies/Procedures Done in Hospital Allergies amoxicillin Allergy (Verified 02/20/22 13:24) Unknown Anesthetics - Amide Type - Select A [Anesthetics - Amide Type] Allergy (Verified 02/20/22 13:24) Unknown Anesthetics - Lizzette Type- Parabens [Anesthetics - Lizzette Type] Allergy (Verified 02/20/22 13:24) Unknown Iaombrm-ZGD-OzM Reductase Inhibitor [Kcqydyq-Dpx-Unc Reductase Inhibitor] Adverse Reaction (Verified 02/20/22 13:24) Myalgia Procedures: None Type of Care/Length of Stay Estimated LOS: Convalescent Care Less Than 30 days Type of Care Needed: Skilled Rehab Potential: Fair Prognosis: Fair Additional Orders/Day of Discharge Day of Discharge: 02/25/22 Dietary and Speech Recommendations Dietitian Recommendations/Changes: Will continue liberal Cardiac diet - consider CHO restriction if bld gluc elevated >150. Discharge Plan Admission Admit Date/Time: 02/20/22 15:48 Primary Reason for Your Visit: debility and weakness Attending Provider: Sruthi Ortiz Primary Care Provider: Bill Castaneda Consulting Providers: Vonda Plummer Instructions Patient Instructions: ED Weakness (Uncertain Cause) Discharge Orders/Prescriptions Prescriptions: Continued multivitamin Tablet 1 tab PO DAILY docusate sodium [Dulcolax Stool Softener (dss)] 100 mg capsule 100 mg PO DAILY levothyroxine 112 MCG tablet 112 mcg PO DAILY@0600 Rx Instructions: 2 tablets on Tuesday tramadol 50 MG tablet 50 mg PO BID ibuprofen [Ibuprofen IB] 200 mg tablet 200 mg PO DAILY PRN PRN (Reason: Pain) Label Comments: Take 2 tablet by mouth once a day lisinopril 20 mg tablet 20 mg PO DAILY amlodipine 2.5 mg Tablet 2.5 mg PO DAILY ezetimibe [Zetia] 10 mg tablet 10 mg PO DAILY cholecalciferol (vitamin D3) 50 mcg (2,000 unit) tablet 2,000 unit PO DAILY Label Comments: SUPPLEMENT carvedilol 25 mg tablet 25 mg PO BID Qty: 180 3RF Referrals / Follow Up: Bill Castaneda MD [Primary Care Provider] - Within 2 Weeks Disposition Disposition (needs filled in before D/C Order can be placed): [facility] Charges/Coding Visit Charges Inpatient E&M: 84905 Disch Hosp
--- NOTE | 2022-02-25 09:31 | DS.PCM_ITS ---
Providers Date of Admission: 02/20/22 Date of Discharge: 02/25/22 Primary Care Physician: Dr. Bill Castaneda MD Reason For Visit: DEBILITY AND INABILITY TO AMBULATE Diagnosis Discharge Diagnosis (1) Inability to walk: Status: Acute Code(s): R26.2 - Difficulty in walking, not elsewhere classified (2) Hypokalemia: Status: Acute Code(s): E87.6 - Hypokalemia Plan #Debility * PT.OT on board. Fall precautions * she had been feeling quite weak at home, and had been unable to walk. * now working well with physical therapy. * #Hypokalemia: resolved #Hypertension: on carvedilol and lisinopril. BP has been elevated. Also on amlodipine; will resume. IV hydralazine prn #Hypothyroidism: on synthroid #Osteoporosis: on vitamin D and yearly zolendronic acid #History of Takotsubo cardiomyopathy * EF of 65% with stage II diastolic dysfunction. * #Chronic pain due to osteoporosis and spinal stenosis: on pain tramadol and tyle nol as well as ibuprofen DVT prophylaxis: lovenox Disposition; awaiting placement Medications at Discharge Home Medications ezetimibe 10 mg tablet (Zetia) 10 mg PO DAILY cholesterol 12/15/17 levothyroxine 112 mcg tablet 112 mcg PO DAILY@0600 thyroid 05/08/19 tramadol 50 mg tablet 50 mg PO BID pain 05/08/19 cholecalciferol (vitamin D3) 50 mcg (2,000 unit) tablet 2,000 unit PO DAILY supplement 10/25/19 multivitamin 1 tab PO DAILY Check with primary doctor 03/24/20 carvedilol 25 mg tablet 25 mg PO BID BP #180 tabs 09/11/21 docusate sodium 100 mg capsule (Dulcolax Stool Softener (docusate)) 100 mg PO DAILY pain 12/31/21 ibuprofen 200 mg tablet (Ibuprofen IB) 200 mg PO DAILY PRN PRN Pain 02/20/22 lisinopril 20 mg tablet 20 mg PO DAILY bp 02/20/22 amlodipine 2.5 mg tablet 2.5 mg PO DAILY Check with primary doctor 02/24/22 Hospital Course Operations None Procedures None Summary of Care Provided Minutes Spent on Discharge: 45 Hospital Course: Patient is an 86-year-old female with a past medical history as outlined was admitted through the ED on 02/20/2022 with a complaint of weakness and inability to ambulate. She had been getting weaker and had been having therapy at home but on the day of admission she could not get out of bed and do anything in dependently. Patient also zoledronic acid infusion for osteoporosis and we thought this could be a side effect. Review of symptoms otherwise negative. Work-up on admission was essentially unremarkable. She was admitted and managed for debility and weakness with failure to thrive. PT OT reviewed patient and she was deemed as needing skilled therapy. She remained stable during her admission and was discharged to a assisted facility on 02/25/2022. She is follow-up with her primary care doctor within 1 to 2 weeks. Patient seen and examined prior to discharge. She had no active complaints and had an uneventful night. Review of systems otherwise negative. Labs and vitals reviewed. Home medication reviewed and reconciled. Physical Exam Const alert, oriented x3, no apparent distress, average body habitus and well n ourished General Appearance: cooperative and comfortable Orientation / Consciousness: awake Exam Limitations: no limitations HEENT normocephalic, head/scalp atraumatic, hearing grossly normal bilaterally, moist oral mucous membranes and oropharynx normal Mouth: oral and palatal mucosa normal Eyes PERRL, EOMs intact bilaterally and conjunctivae normal Eyes Narrative: No scleral icterus Neck no lymphadenopathy, supple, no JVD and no carotid bruits Neck Narrative: Trachea midline, no thyroid enlargement Resp normal respiratory effort, no retractions, no use of accessory muscles and clear to auscultation bilaterally Auscultation: Negative for crackles, rhonchi or wheezes Cardio regular rate, regular rhythm, S1 normal heart sound, S2 normal heart sound, no murmurs, no rub, no gallops and no clicks GI normal to inspection, nondistended, normoactive bowel sounds, soft to palpation, non-tender and non-distended Extremity normal to inspection, full ROM and no clubbing, cyanosis or edema Extremity Narrative: 2+ pedal pulses Skin no rashes or lesions noted, no wounds, skin turgor normal, no jaundice, no petechiae and no mottling Neuro oriented x3, CN's II-XII intact bilaterally, moves all extremities and no focal motor deficits Sensorium / Orientation: awake and alert Coordination / Balance: jxfjrn-xt-nyla test normal Speech: speech normal Motor Exam: strength 5/5 throughout Psych affect normal Weight / BMI Weight Weight: 129 lb Body Mass Index (BMI) 22.1 ABG / Lab / Microbiology Data Result Diagrams: 02/25/22 06:15 02/25/22 06:15 Laboratory: Laboratory Results - last 24 hr 02/25/22 06:15: WBC 3.7 L, RBC 4.33, Hgb 12.4, Hct 38.4, MCV 88.7, MCH 28.6, MCHC 32.3, RDW Std Deviation 42.6, RDW Coeff of Jay Jay 13.1, Plt Count 278, MPV 9.2, Immature Gran % (Auto) 0.300, Neut % (Auto) 50.0, Lymph % (Auto) 35.1, Kinney % (Auto) 8.4, Eos % (Auto) 5.1 H, Baso % (Auto) 1.1 H, Absolute Neuts (auto) 1.9 L, Absolute Lymphs (auto) 1.30, Nucleated RBC % 0 02/25/22 06:15: Sodium 141, Potassium 3.7, Chloride 107, Carbon Dioxide 29.0, Anion Gap 5, BUN 21 H, Creatinine 0.42 L, Estim Creat Clear Calc 36.16, Est GFR (MDRD) Af Amer 187, Est GFR (MDRD) Non-Af 155, BUN/Creatinine Ratio 50.6 H, Glucose 88, Calcium 9.7 Microbiology: Microbiology 02/20/22 13:46 Nasal Secretion SARS-CoV-2 & FLU Antigen (Rapid) - Final D/C Instructions Discharge Diet: Low fat / Low cholesterol Discharge Activity: Return to Normal Activity Weight Bearing Status: Weight bearing as tolerated Call your doctor if you observe: Swelling in the ankles, Increased palpitations (irregular heartbeat) and Uncontrolled pain Meaningful Use Info Meaningful Use Diagnoses (Choose all that apply): None applicable Discharge Plan Admission Admit Date/Time: 02/20/22 15:48 Primary Reason for Your Visit: debility and weakness Attending Provider: Sruthi Ortiz Primary Care Provider: Bill Castaneda Consulting Providers: Vonda Plummer Instructions Patient Instructions: ED Weakness (Uncertain Cause) Discharge Orders/Prescriptions Prescriptions: Continued multivitamin Tablet 1 tab PO DAILY docusate sodium [Dulcolax Stool Softener (dss)] 100 mg capsule 100 mg PO DAILY levothyroxine 112 MCG tablet 112 mcg PO DAILY@0600 Rx Instructions: 2 tablets on Tuesday tramadol 50 MG tablet 50 mg PO BID ibuprofen [Ibuprofen IB] 200 mg tablet 200 mg PO DAILY PRN PRN (Reason: Pain) Label Comments: Take 2 tablet by mouth once a day lisinopril 20 mg tablet 20 mg PO DAILY amlodipine 2.5 mg Tablet 2.5 mg PO DAILY ezetimibe [Zetia] 10 mg tablet 10 mg PO DAILY cholecalciferol (vitamin D3) 50 mcg (2,000 unit) tablet 2,000 unit PO DAILY Label Comments: SUPPLEMENT carvedilol 25 mg tablet 25 mg PO BID Qty: 180 3RF Referrals / Follow Up: Bill Castaneda MD [Primary Care Provider] - Within 2 Weeks Disposition Disposition (needs filled in before D/C Order can be placed): [facility] Facility Charges/Coding Visit Charges Inpatient E&M: 59049 Disch Hosp
[2022-02-25] MEDS: traMADol 50 MG Tablet PO (09:59)
--- NOTE | 2022-02-25 10:50 | PHA.DC.MR ---
Pharmacy Service has performed discharge medication reconciliation for this patient upon transfer to [facility]. Home Medications ezetimibe 10 mg tablet (Zetia) 10 mg PO DAILY cholesterol 12/15/17 levothyroxine 112 mcg tablet 112 mcg PO DAILY@0600 thyroid 05/08/19 tramadol 50 mg tablet 50 mg PO BID pain 05/08/19 cholecalciferol (vitamin D3) 50 mcg (2,000 unit) tablet 2,000 unit PO DAILY supplement 10/25/19 multivitamin 1 tab PO DAILY Check with primary doctor 03/24/20 carvedilol 25 mg tablet 25 mg PO BID BP #180 tabs 09/11/21 docusate sodium 100 mg capsule (Dulcolax Stool Softener (docusate)) 100 mg PO DAILY pain 12/31/21 ibuprofen 200 mg tablet (Ibuprofen IB) 200 mg PO DAILY PRN PRN Pain 02/20/22 lisinopril 20 mg tablet 20 mg PO DAILY bp 02/20/22 amlodipine 2.5 mg tablet 2.5 mg PO DAILY Check with primary doctor 02/24/22 The patient's discharge medication list was reviewed for discrepancies and discrepancies were resolved.
[2022-02-25 15:07] VITALS: BP 131/65; PULSE 68; RESP 18; TEMP 37; O2SAT 100
[2022-02-25 15:10] VITALS: PULSE 80
--- NOTE | 2022-02-25 15:11 | CASEMGMT ---
Social Work Per physician, pt is ready for discharge today. SW met with pt and she is agreeable to discharge. Transportation arranged with [facility] for 5:30 supervisor opening and picking via wheelchair. Pt notified of cost of transport and agreeable. 7000 convalescent form completed in [facility] and sent along with discharge orders and covid results to [facility]. Phone call to Niraj and updated on discharge time. Phone call to pt son Dakota and updated on discharge plan. Nursing made aware. Disposition: [facility], skilled level of care under convalescent stay LASHELL García
== END 2022-02-25 17:32 | disposition skilled nursing facility (03) | DRG 948 ==
LOC: ED 15:59 → MS3 16:20
PROVIDERS: Admitting Provider Internal Medicine; Emergency Provider Emergency Medicine; PCP Family Medicine; Visit Provider Student in an Organized Health Care Education/Training Program
DX: R53.81 Other malaise (principal); E11.51 Type 2 diabetes mellitus with diabetic peripheral angiopathy without gangrene; R62.7 Adult failure to thrive; E03.9 Hypothyroidism, unspecified; R26.2 Difficulty in walking, not elsewhere classified; E87.6 Hypokalemia; E78.5 Hyperlipidemia, unspecified; I25.2 Old myocardial infarction; J45.909 Unspecified asthma, uncomplicated; R74.01 Elevation of levels of liver transaminase levels; M81.0 Age-related osteoporosis without current pathological fracture; Z87.891 Personal history of nicotine dependence; R53.1 Weakness; Z79.899 Other long term (current) drug therapy; Z79.890 Hormone replacement therapy; Z79.82 Long term (current) use of aspirin; R32 Unspecified urinary incontinence; G89.29 Other chronic pain; Z79.891 Long term (current) use of opiate analgesic; I10 Essential (primary) hypertension
CPT/HCPCS: 36415; 80048; 80053; 81001; 82550; 83735; 84100; 84443; 84484; 85025; 87426; 87428; 93005; 96360; 96361; 96372; 97110; 97116; 97162; 97166; 97530; 97535; 99221; 99285; J7030; J7050; P9612; A4216; G0378; J3489

== ENCOUNTER → 2022-05-26 | Outpatient (REF) | payer MEDICARE, SELFPAY ==
[2022-05-26 10:54] LABS: Mucous, Urine 0 SEEN /hpf (<or=2+); Red Blood Cells-Urine 0 SEEN /hpf (0-5)
[2022-05-26 11:33] LABS: Color, Urine Yellow (Yellow); Glucose, Dipstick Normal (Normal); Ketone-Dipstick Negative (Negative); Leukocyte Esterase-Dipstick 25 /ul (Negative); Nitrite-Dipstick Positive (Negative); Occult Blood-Urine Negative /ul (Negative); Protein-Dipstick Negative (Negative); Urine Bilirubin Dipstick Negative (Negative); Urine Clarity Clear (Clear); Urine Urobilinogen Normal (Normal); Urine pH 6.5 (5.0 - 8.0)
[2022-05-26 12:45] LABS: Bacteria 2+ /hpf (None Seen); Squamous Epithelial Cells - UA 0-5 SEEN /hpf (5-10); White Blood Cells 0-5 SEEN /hpf (0-5)
== END ==
PROVIDERS: PCP Family Medicine; Visit Provider Family Medicine
DX: N39.0 Urinary tract infection, site not specified (principal); R41.82 Altered mental status, unspecified
CPT/HCPCS: 81001; 87077; 87086; 87088; 87186

== ENCOUNTER → 2022-06-23 | Outpatient (REF) | payer MEDICARE, SELFPAY ==
[2022-06-23 11:06] LABS: Color, Urine Yellow (Yellow); Glucose, Dipstick Normal (Normal); Ketone-Dipstick Negative (Negative); Leukocyte Esterase-Dipstick Negative /ul (Negative); Nitrite-Dipstick Negative (Negative); Occult Blood-Urine 10 /ul (Negative); Protein-Dipstick Negative (Negative); Urine Bilirubin Dipstick Negative (Negative); Urine Clarity Sl. Cloudy (Clear); Urine Urobilinogen Normal (Normal)
== END ==
PROVIDERS: PCP Family Medicine; Visit Provider Family Medicine
DX: N39.0 Urinary tract infection, site not specified (principal); Z79.899 Other long term (current) drug therapy
CPT/HCPCS: 81002; 87086; 87088

== ENCOUNTER → 2022-11-24 | Outpatient (REF) | payer MEDICARE, SELFPAY ==
[2022-11-24 18:20] LABS: Color, Urine Yellow (Yellow); Glucose, Dipstick Normal (Normal); Ketone-Dipstick 5 mg/dl (Negative); Leukocyte Esterase-Dipstick Negative /ul (Negative); Nitrite-Dipstick Negative (Negative); Occult Blood-Urine 25 /ul (Negative); Protein-Dipstick 15 mg/dl (Negative); Specific Gravity, Urine 1.025 (1.002-1.030); Urine Bilirubin Dipstick Negative (Negative); Urine Clarity Cloudy (Clear); Urine Urobilinogen Normal (Normal)
== END ==
PROVIDERS: PCP Family Medicine; Visit Provider Family Medicine
DX: Z79.899 Other long term (current) drug therapy (principal)
CPT/HCPCS: 81002; 87086; 87088

== ENCOUNTER → 2023-01-06 | Outpatient (CLI) | payer MEDICARE, SELFPAY ==
[2023-01-06 12:20] LABS: Hematocrit 41.5 % (37-47); Hemoglobin 12.9 g/dL (12.0-15.0); Mean Corp Hgb Conc 31.1 g/dL (32-36); Mean Corpuscular Hgb 28.7 pg (27.0-32.0); Mean Corpuscular Volume 92.2 fL (81-99); Mean Platelet Vol. 9.7 fl (6.2-12.0); Platelet Count 295 K/mm3 (150-450); RBC Distribution Width CV 13.5 % (11.6-14.6); RBC Distribution Width SD 45.8 fl (35.1-43.9); White Blood Count 7.3 K/mm3 (4.4-11.0)
[2023-01-06 13:12] LABS: Vitamin B12 1420 pg/mL (211-911)
[2023-01-06 14:23] LABS: AST(SGOT) 17 U/L (15-37); Alanine Aminotransfer ALT/SGPT 25 U/L (13-56); Albumin, Serum 3.8 g/dL (3.2-5.0); Alkaline Phosphatase 54 U/L (45-117); Anion Gap 7 (5-15); BUN 19 mg/dL (7-18); BUN/Creat Ratio 39.7 RATIO (10-20); Calcium,Total 9.3 mg/dL (8.5-10.1); Chloride 104 mmol/L (98-107); Creatinine, Serum 0.48 mg/dL (0.55-1.02); EST Glomerular Filtration Rate 131 mL/min (>60); Est Glom Filt Rate - Afr Amer 158 mL/min (>60); Globulin 3.9 g/dL (2.2-4.2); Glucose 92 mg/dL (74-106); Potassium 4.1 mmol/L (3.5-5.1); Protein, Total 7.7 g/dL (6.4-8.2); Sodium Level 139 mmol/L (136-145); T4 Free Direct 1.11 ng/dL (0.76-1.46); Thyroid Stim Hormone (TSH) 7.94 uIU/mL (0.358-3.74)
[2023-01-11 06:09] LABS: Free Kappa Light Chains 32.9 mg/L (3.3-19.4); Free Lambda Light Chains 16.4 mg/L (5.7-26.3); Vitamin B1, Thiamine 124.8 nmol/L (66.5-200.0)
== END | disposition home or self-care (01) ==
LOC: MTLAB 10:31
PROVIDERS: PCP Family Medicine; Referring Provider Psychiatry & Neurology Neurology; Visit Provider Psychiatry & Neurology Neurology
DX: G62.9 Polyneuropathy, unspecified (principal); E03.9 Hypothyroidism, unspecified
CPT/HCPCS: 36415; 80053; 82607; 82746; 83883; 84425; 84439; 84443; 85027

== ENCOUNTER → 2023-01-27 | Outpatient (CLI) | payer MEDICARE, SELFPAY ==
--- NOTE | 2023-01-27 12:00 | MRI_ITS ---
EXAM: MR HEAD WITHOUT AND WITH INTRAVENOUS CONTRAST CLINICAL INDICATION: Parkinson''s disease; right facial palsy TECHNIQUE: Multiplanar and multisequence MR images of the brain were obtained without and with intravenous contrast. This report was created using [employer] report generation technology. CONTRAST: 13 mL of IV Clariscan. COMPARISON: MRI brain without contrast 09/24/2019. FINDINGS: BRAIN AND EXTRA-AXIAL SPACES: No diffusion restriction to suspect acute or subacute ischemic infarct. No abnormal enhancing lesions intra-axially and extra-axially. No intra- or extra-axial hemorrhage. No intracranial mass or mass effect. Posterior fossa structures are unremarkable. Ventricles are appropriate for age. No hydrocephalus. Basal cisterns are patent. SELLA: Unremarkable. Normal sella turcica, pituitary gland, infundibular stalk, optic chiasm and hypothalamus. AUDITORY SYSTEM: Unremarkable. The internal auditory canals are patent. BONES/JOINTS: Prominent nonenhancing benign arachnoid cyst overlying the left anterior temporal pole and floor of the left middle cranial fossa is unchanged. This measures approximately 4.3 x 4.5 x 2.9 cm. No discrete lytic or blastic abnormalities. SINUSES: Unremarkable as visualized. Clear. MASTOID AIR CELLS: Unremarkable as visualized. Clear. ORBITS: Unremarkable as visualized. Both globes, extraocular muscles, optic nerves and retrobulbar fat appear unremarkable. VASCULATURE: Unremarkable as visualized. Normal flow voids in the major intracranial circulation. MRI/Brain W/WO Contrast IMPRESSION: 1. Nonenhancing benign arachnoid cyst overlying the left anterior temporal pole and floor of the left middle cranial fossa. This is unchanged. 2. No MRI evidence of acute or subacute ischemic infarct or acute intracranial abnormality. 3. No MRI evidence of signal abnormality in the substantia nigra or thinning of the pars compacta to suggest Parkinson''s disease. 4. No significant interval change when compared to 09/24/2019. Electronically Signed: Anuel العلي MD at 15:14 EST ,
== END | disposition home or self-care (01) ==
LOC: MRI 11:57
PROVIDERS: PCP Family Medicine; Referring Provider Psychiatry & Neurology Neurology; Visit Provider Psychiatry & Neurology Neurology
DX: G20.A1 Parkinson's disease without dyskinesia, without mention of fluctuations (principal); I67.9 Cerebrovascular disease, unspecified
CPT/HCPCS: 70553; A9575

== ENCOUNTER → 2023-03-24 | Outpatient (CLI) | payer MEDICARE, SELFPAY ==
--- OUTSIDE RECORDS SUMMARY | 2023-03-24 11:09 | XMS RPT_ITS | CCD ---
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 Name Role Phone Unavailable Primary Care Provider Unavailabl e Problems Problem Classification Problem Date Documented Da te Episodic/Chronic Spondylosis; intervertebral disc disorders; other back problems (1 source) Spinal stenosis of lumbar region; Translations: [Spinal stenosis of lumbar region, unspecified whether neurogenic claudication present] Episodic Results Test Name Value Interpretation Reference Range Facil ity Encounters Encounter Date Encounter Type Care Provider Facility Start: 12-12-2018 End: 12-12-2018 Outside Orders [facility] Scheduling Plan of Treatment Date Care Activity Detail Author Start: 11-12-2018 Influenza vaccination INFLUENZA VACC INE (#1) [facility] Start: 2002 Pneumococcal vaccination PNEUM OCOCCAL VACCINE SERIES (1 of 2 - PCV13) [facility] Start: 1987 Colonoscopy COLON CANCER S CREENING DISCUSSION [facility] Start: 1987 Zoster vaccine hzv l rhys for subcutaneous use ZOSTER (SHINGLES) VACCINE (1 of 2) [facility] Start: 1977 Screening mammography MAMMOGRA M SCREENING DISCUSSION [facility] Start: 1958 Screening for malign ant neoplasm of cervix PAP SMEAR DISCUSSION [facility] Start: 1956 Third diphtheria, te tanus and acellular pertussis (DTaP) vaccination TDAP (ADULT) [facility] Start: 1955 Tetanus vaccination TETANUS [facility] Start: 1937 Screening for osteoporosis DEXA SCAN DISCUSSION [facility] Payers Date Payer Category Payer Unknown [id number] [id number] 1937 Unknown [id number] [id number] Private Health Insurance MEB [id number] Social History Date Type Detail Facility Tobacco smoking status NHIS Unknown if ev er smoked [facility] Sex Assigned At Not on file [facility] Summary Purpose Family History No Family History Records FoundNo Family History Records FoundNo Family History Records Found Advance Directives No Advanced Directives Records FoundNo Advanced Directives Records FoundNo Advanced Directives Records Found Reason for Referral Status Reason Specialty Diagnoses / Procedures Referred By Contact Referred To Contact New Request Orthopaedic Surgery Diagnoses Spinal stenosis of lumbar region, unspecified whether neurogenic claudication present Bill Castaneda MD [address] [place] [address] Bia Alonzo MD [address] [place] [phone] Assessments Diagnosis Spinal stenosis of lumbar region, unspecified whether neurogenic claudication present- Primary Additional Source Comments INFORMATION SOURCE (unrecogn ized section and content) DATE CREATED AUTHOR AUTHOR'S ORGANIZ ATION 12/27/2018 [facility] DATE CREATED AUTHOR AUTHOR'S ORGANIZ ATION 09/17/2021 [facility] FOR RECORDS PERTAINING TO PATIENTS WHO ARE OR HAVE BEEN ENROLLED IN A CHEMICAL DEPENDENCY/SUBSTANCEABUSE PROGRAM, SOME INFORMATION MAY BE OMITTED. This clinical summary was aggregated from multiple sources. Caution should be exercised in using it in the provision of clinical care. This summary normalizes information from multiple sources, and as a consequence, information in this document may materially change the coding, format and clinical context of patient data. In addition, data may be omitted in some cases. CLINICAL DECISIONS SHOULD BE BASED ON THE PRIMARY CLINICAL RECORDS. [employer] provides no warranty or guarantee of the accuracy or completeness of information in this document.
[2023-03-24 13:30] LABS: Cholesterol 242 mg/dL (200); High Density Lipoprotein 71 mg/dL; T4 Free Direct 1.13 ng/dL (0.76-1.46); Thyroid Stim Hormone (TSH) 2.34 uIU/mL (0.358-3.74); Triglycerides 188 mg/dL; Very Low Density Lipoprotein 38 mg/dL (5-40)
[2023-03-24 14:27] LABS: Hemoglobin A1c 5.4 % (3.8-5.6)
== END | disposition home or self-care (01) ==
LOC: BFHLAB 10:12
PROVIDERS: PCP Family Medicine; Visit Provider Family Medicine
DX: E03.9 Hypothyroidism, unspecified (principal); R73.01 Impaired fasting glucose; E78.5 Hyperlipidemia, unspecified
CPT/HCPCS: 36415; 80061; 83036; 84439; 84443

== ENCOUNTER → 2023-05-03 | Outpatient (CLI) | payer MEDICARE, SELFPAY ==
--- NOTE | 2023-05-03 12:34 | RAD_ITS ---
STUDY: X-RAY - LUMBAR SPINE REASON FOR EXAM: Female, 88 years old. low back pain TECHNIQUE: 2 view(s) of the lumbar spine were obtained. COMPARISON: 01/20/2022 FINDINGS: No definite change. Stable appearance of pedicular screws and posterior rods at L4-L5, with discectomy spacers. Normal curvature. Normal alignment. Compression fracture of L1 is grossly stable. RAD/Lumbar Spine 2 or 3 Views IMPRESSION: No significant change. Electronically Signed: Forest Santillan MD at 23:01 EST ,
--- OUTSIDE RECORDS SUMMARY | 2023-05-03 13:53 | XMS RPT_ITS | CCD ---
Author Name Unknown Address [address] [place] [address] Organization [facility] Care Team Providers Care Bible Reader Name Role Phone Unavailable Primary Care Provider [...] 11-12-2018 Influenza vaccination INFLUENZA VACC INE (#1) [facility] Start: 2002 Pneumococcal vaccination PNEUM OCOCCAL VACCINE SERIES (1 of 2 - PCV13) [facility] Start: 1987 Colonoscopy COLON CANCER S CREENING DISCUSSION [facility] Start: 1987 Zoster vaccine hzv l rhys for subcutaneous use ZOSTER (SHINGLES) VACCINE (1 of 2) [facility] Start: 1977 Screening mammography MAMMOGRA M SCREENING DISCUSSION [facility] Start: 1958 Screening for malign ant neoplasm of cervix PAP SMEAR DISCUSSION [facility] Start: 1956 Third diphtheria, te tanus and acellular pertussis (DTaP) vaccination TDAP (ADULT) [facility] Start: 1955 Tetanus vaccination TETANUS [facility] Start: 1937 Screening for osteoporosis DEXA SCAN DISCUSSION [facility] Payers Date Payer Category Payer Unknown [id number] [id number] 1935 Unknown [id number] Private Health Insurance MEB [id number] Social History Date Type Detail Facility Tobacco smoking status NHIS Unknown if ev er smoked [facility] Sex Assigned At Not on file [facility] Summary Purpose Family History No Family [...] neurogenic claudication present Bill Castaneda MD [address] [place] [address] Bia Alonzo MD [address] [place] [phone] Assessments Diagnosis Spinal stenosis of lumbar region, unspecified whether neurogenic claudication present- Primary Additional Source Comments INFORMATION SOURCE (unrecogn ized section and content) DATE CREATED AUTHOR AUTHOR'S ORGANIZ ATION 12/27/2018 [facility] DATE CREATED AUTHOR AUTHOR'S ORGANIZ ATION 09/17/2021 [facility] FOR RECORDS PERTAINING TO PATIENTS WHO ARE [...] BE BASED ON THE PRIMARY CLINICAL RECORDS. [employer] provides no warranty or guarantee of the accuracy or completeness of information in this document.
[2023-05-06 15:08] LABS: Albumin 4.2 g/dL (2.9-4.4); Alpha-1-Globulins 0.4 g/dL (0.0-0.4); Alpha-2-Globulins 0.8 g/dL (0.4-1.0); IMMUNOFIXATION RESULT,S Comment: (.); Immunoglobulin A 301 mg/dL (64-422); Immunoglobulin G 1385 mg/dL (586-1602); Immunoglobulin M 26 mg/dL (26-217); PROEL- TOTAL PROTEIN 7.6 g/dL (6.0-8.5)
== END | disposition home or self-care (01) ==
LOC: MTLAB 12:34
PROVIDERS: PCP Family Medicine; Referring Provider Psychiatry & Neurology Neurology; Visit Provider Psychiatry & Neurology Neurology
DX: M54.50 Low back pain, unspecified (principal)
CPT/HCPCS: 36415; 72100; 82784; 84165; 86334; 86335

== ENCOUNTER → 2023-07-04 | Outpatient (REF) | payer MEDICARE, SELFPAY ==
[2023-07-04 10:27] LABS: ALB/GLOB Ratio 1.1 RATIO (0.9-2.4); AST(SGOT) 19 U/L (15-37); Alanine Aminotransfer ALT/SGPT 18 U/L (13-56); Alkaline Phosphatase 54 U/L (45-117); Anion Gap 5 (5-15); BUN 18 mg/dL (7-18); BUN/Creat Ratio 34.2 RATIO (10-20); Calcium,Total 9.7 mg/dL (8.5-10.1); Chloride 106 mmol/L (98-107); Creatinine, Serum 0.53 mg/dL (0.55-1.02); EST Glomerular Filtration Rate 117 mL/min (>60); Est Glom Filt Rate - Afr Amer 142 mL/min (>60); Globulin 3.8 g/dL (2.2-4.2); Glucose 136 mg/dL (74-106); Potassium 3.7 mmol/L (3.5-5.1); Protein, Total 7.8 g/dL (6.4-8.2); Sodium Level 140 mmol/L (136-145)
== END ==
PROVIDERS: PCP Family Medicine; Referring Provider Internal Medicine Endocrinology, Diabetes & Metabolism; Visit Provider Internal Medicine Endocrinology, Diabetes & Metabolism
DX: Z79.899 Other long term (current) drug therapy (principal)
CPT/HCPCS: 36415; 80053

== ENCOUNTER → 2023-07-05 | Outpatient (REF) | payer MEDICARE, SELFPAY ==
[2023-07-05 08:45] LABS: Vitamin D,25 Hydroxy 53.4 ng/mL
== END ==
PROVIDERS: PCP Family Medicine
DX: E55.9 Vitamin D deficiency, unspecified (principal); Z79.899 Other long term (current) drug therapy
CPT/HCPCS: 36415; 82306

== ENCOUNTER 2023-07-06 09:55 | Outpatient (CLI) | payer MEDICARE, SELFPAY ==
[2023-07-06 10:00] VITALS: BP 159/72; PULSE 61; RESP 16; TEMP 35.6
[2023-07-06] MEDS: 0.9% NaCl Peripheral Flush Adult/Peds IV (10:26)
[2023-07-06] MEDS: Zoledronic Acid 5 MG 100 ML 300 MG IV (10:27)
[2023-07-06 10:52] VITALS: BP 171/81; PULSE 58; RESP 16
== END 2023-07-06 09:56 | disposition home or self-care (01) ==
PROVIDERS: PCP Family Medicine; Referring Provider Internal Medicine Endocrinology, Diabetes & Metabolism; Visit Provider Internal Medicine Endocrinology, Diabetes & Metabolism
DX: M81.0 Age-related osteoporosis without current pathological fracture (principal)
CPT/HCPCS: 96365; A4216; J3489

== ENCOUNTER → 2023-09-06 | Outpatient (CLI) | payer MEDICARE, SELFPAY ==
[2023-09-09 17:07] LABS: Albumin 3.7 g/dL (2.9-4.4); Alpha-1-Globulins 0.3 g/dL (0.0-0.4); Alpha-2-Globulins 0.8 g/dL (0.4-1.0); Gamma Globulin 1.1 g/dL (0.4-1.8); Immunoglobulin A 245 mg/dL (64-422); Immunoglobulin G 1189 mg/dL (586-1602); Immunoglobulin M 21 mg/dL (26-217); PROEL- TOTAL PROTEIN 6.9 g/dL (6.0-8.5)
== END | disposition home or self-care (01) ==
LOC: MTLAB 12:45
PROVIDERS: PCP Family Medicine; Referring Provider Psychiatry & Neurology Neurology; Visit Provider Psychiatry & Neurology Neurology
DX: G62.9 Polyneuropathy, unspecified (principal)
CPT/HCPCS: 36415; 82784; 84165; 86334

== ENCOUNTER 2023-11-06 13:54 | Emergency (ER) | payer MEDICARE, SELFPAY ==
[2023-11-06 13:55] VITALS: BP 160/84; PULSE 61; RESP 19; TEMP 36.4; O2SAT 98; BMI 25.2
--- NOTE | 2023-11-06 14:21 | CT_ITS ---
INDICATION: Trauma, head injury EXAMINATION: CT BRAIN - CT Head or Brain W/O Contrast Injection TECHNIQUE: Multiple axial images were obtained of the head without intravenous contrast. A radiation dose optimization technique was used for this scan. IV Contrast dosage and agent: None. COMPARISON: Brain MRI 01/27/2023 FINDINGS: BRAIN PARENCHYMA: No intra- or extra-axial hemorrhage. No evidence of acute infarct. No intracranial mass or mass effect. Stable arachnoid cyst left middle cranial fossa. Posterior fossa structures are unremarkable. Stable volume loss with low attenuation of the periventricular white matter typical of chronic small vessel disease. CSF SPACES: Appropriate for age. No hydrocephalus. Basal cisterns are patent. CALVARIUM, SKULL BASE, PARANASAL SINUSES AND MASTOID AIR CELLS: Clear. No acute fracture. CT/Brain/Head without Contrast IMPRESSION: Volume loss with chronic white matter changes. No acute intracranial findings. Electronically Signed: Servando Alfred MD at 15:56 EDT ,
--- NOTE | 2023-11-06 14:21 | CT_ITS ---
INDICATION: head injury, neck pain EXAMINATION: CT CERVICAL SPINE - CT Spine Cervical W/O Contrast Injection TECHNIQUE: Helically acquired images were obtained of the cervical spine. 2D reformatted images were reviewed. A radiation dose optimization technique was used for this scan. IV Contrast dosage and agent: None. COMPARISON: Cervical MRI 05/30/2017 FINDINGS: VERTEBRAE: No acute fracture. No discrete lytic or blastic abnormality. Normal alignment. Multilevel facet joint hypertrophy with degenerative changes at the C7 spinous process as on prior study. DISCS and SPINAL CANAL: Disc heights are preserved. NECK SOFT TISSUES: No prevertebral soft tissue swelling. LUNG APICES: Clear. CT/Spine Cervical without Contras IMPRESSION: Degenerative changes. No acute fracture of the cervical spine. Electronically Signed: Servando Alfred MD at 16:03 EDT ,
--- NOTE | 2023-11-06 14:26 | ED.VIS.FALL ---
HPI <VINCE Weston - Last Filed: 11/06/23 18:33> HPI - Fall History of Present Illness Chief Complaint: Fall Narrative Narrative: Patient presenting today due to a mechanical fall and head injury that occurred this afternoon. She was bending over to kill a large spider when she lost her balance and fell backwards and hit her head on a small piece of furniture. She denies any LOC or use of blood thinners. She has a small laceration to the back of her head, she is unsure when her last tetanus was updated. She denies any other injury. [facility] <VINCE Weston - Last Filed: 11/06/23 18:33> [facility] Medical History Transaminitis Inability to walk Hypercalcemia Debility Colitis Back pain Old anterior wall myocardial infarction Osteoarthritis Asthma Essential (primary) hypertension Controlled diabetes mellitus with peripheral circulatory disorder HLD (hyperlipidemia) Palpitations Other chest pain Takotsubo cardiomyopathy Home Medications ?Medication ?Instructions ?Recorded ?Last Taken ?Type ezetimibe 10 mg tablet (Zetia) 10 mg PO DAILY cholesterol 12/15/17 02/20/22 History tramadol 50 mg tablet 50 mg PO BID pain 05/08/19 02/20/22 History cholecalciferol (vitamin D3) 50 2,000 unit PO DAILY supplement 10/25/19 02/20/22 History mcg (2,000 unit) tablet carvedilol 25 mg tablet 25 mg PO BID BP #180 tabs 09/11/21 02/20/22 Rx mecobalamin (vitamin B12) 500 mcg mcg PO 09/09/22 Unknown History chewable tablet cqgwyztt-wedt-hprfs acid 120 tab PO DAILY 01/06/23 Unknown History mcg-herb no.293 37.5 mg chewable tablet (Alive Women's Gummy Vitamin) zoledronic acid 5 mg/100 mL in 1 ea .Route ONCE #100 mL 06/15/23 Unknown Rx mannitol 5 %-water intravenous piggybck acetaminophen 325 mg capsule 650 mg PO BID PRN pain 09/08/23 Unknown History calcium carbonate (Calcium 600) 600 mg PO BID #60 tabs 09/08/23 Unknown Rx carbidopa 25 mg-levodopa 100 mg See Rx Instructions .Route 09/08/23 Unknown Rx tablet (Sinemet) .COMPLEX #180 tabs docusate sodium 100 mg capsule 100 mg PO BID pain 09/08/23 Unknown History (Dulcolax Stool Softener (docusate)) ibuprofen 400 mg tablet 400 mg PO DAILY PRN 09/08/23 Unknown History levothyroxine 125 mcg tablet 125 mcg PO QDAY 09/08/23 Unknown History Allergy/AdvReac Type Severity Reaction Status Date / Time amoxicillin Allergy Unknown Unknown Verified 09/08/23 14:52 Anesthetics - Amide Type - Allergy Unknown Verified 09/08/23 14:52 Select A (Anesthetics - Amide Type) Anesthetics - Lizzette Type- Allergy Unknown Verified 09/08/23 14:52 Parabens (Anesthetics - Lizzette Type) Ovkzqll-VML-GhK Reductase AdvReac Severe Myalgia Verified 09/08/23 14:52 Inhibitor (Jlomgvz-Eev-Spb Reductase Inhibitor) Family History Father , age 83 Colon cancer Mother , age 90 CHF (congestive heart failure) Brother , age 68 Diabetes Sister CVA (cerebral vascular accident) Daughter Hypertension Daughter Thyroid disorder Surgical History History of left hip replacement History of right hip replacement (~2016) History of fractured pelvis (~2013) History of dilation and curettage (~1994) History of back surgery (~2016) History of left heart catheterization (LHC) (03/2010) History of cholecystectomy (~2005) History of tonsillectomy Social History household members: none housing: house Smoking Status: Former smoker how long ago did patient quit smokin alcohol intake: current alcohol intake frequency: holidays/special occasions only Alcohol type: wine substance use type: does not use caffeine: No do you feel safe at home: Yes ROS <VINCE Weston - Last Filed: 11/06/23 18:33> ROS ED Constitutional Constitutional ED: Denies chills or fever(s) Cardiovascular Cardiovascular: Denies chest pain Respiratory/Chest Respiratory/Chest: Denies dyspnea Gastrointestinal Gastrointestinal: Denies abdominal pain, nausea or vomiting Musculoskeletal Musculoskeletal: Denies arthralgias, back pain or neck pain Integumentary Reports laceration Neurologic Neurologic: Denies weakness EXAM <VINCE Weston - Last Filed: 11/06/23 18:33> Physical Exam Const Vital Signs: 11/06/23 13:55 11/06/23 13:59 11/06/23 15:54 Temperature 97.6 F L Temperature Source Temporal Pulse Rate 61 78 Respiratory Rate 19 H 16 Respiratory Effort Normal Blood Pressure 160/84 H 208/110 H Blood Pressure Mean 109 142 Pulse Ox 98 98 Oxygen Delivery Method Room Air Room Air 11/06/23 17:10 Temperature 97.8 F Temperature Source Pulse Rate 87 Respiratory Rate 16 Respiratory Effort Blood Pressure 200/96 H Blood Pressure Mean 130 Pulse Ox 98 Oxygen Delivery Method Positive well nourished, well developed and no apparent distress General Appearance ED: well developed HEENT Reports normocephalic and head/scalp atraumatic HEENT Narrative: 1.5 cm full-thickness linear laceration to the posterior scalp Mouth ED: Yes moist mucous membranes normal Eyes PERRL and EOMs intact bilaterally Neck full ROM and supple Chest Wall inspection of chest normal Resp normal respiratory effort and clear to auscultation bilaterally Cardio regular rate and regular rhythm GI soft to palpation and non-tender Back/Spine normal ROM and normal to inspection Extremity normal to inspection and full ROM Neuro oriented x3, CN's II-XII intact bilaterally, moves all extremities, no focal motor deficits and no sensory deficits noted Sensorium / Orientation: awake and alert Psych mental status grossly normal and thought process normal Skin Skin Narrative: Aside from the laceration to the posterior scalp no other abrasions or lacerations. <Dr. Sandeep Suarez DO - Last Filed: 11/06/23 21:32> Physical Exam Const Vital Signs: 11/06/23 13:55 11/06/23 13:59 11/06/23 15:54 Temperature 97.6 F L Temperature Source Temporal Pulse Rate 61 78 Respiratory Rate 19 H 16 Respiratory Effort Normal Blood Pressure 160/84 H 208/110 H Blood Pressure Mean 109 142 Pulse Ox 98 98 Oxygen Delivery Method Room Air Room Air 11/06/23 17:10 Temperature 97.8 F Temperature Source Pulse Rate 87 Respiratory Rate 16 Respiratory Effort Blood Pressure 200/96 H Blood Pressure Mean 130 Pulse Ox 98 Oxygen Delivery Method MDM <VINCE Weston - Last Filed: 08/25/24 18:33> MDM MDM Narrative Medical decision making narrative: Patient presenting today with a 1.5 cm full-thickness linear laceration to her posterior scalp after mechanical fall occurred this afternoon, she fell backwards and hit the back of her head on a small piece of furniture when she was try to kill a spider. Head CT and neck CT will be obtained to rule out intracranial bleed and cervical fracture. She is otherwise well-appearing and in no acute distress. CTs are negative for any acute findings. Her laceration was repaired with delon, she is to have these removed in 10 to 14 days. Her blood pressure did become elevated here, she does not have any symptoms with her hypertension. Patient reports that it is normal for her blood pressure to become elevated at times given her history of Parkinson's disease and it will also become low at times, she was previously on an additional blood pressure medication but was taken off of it due to dropping too low. Given she is asymptomatic, I did encourage that she keep an eye on her blood pressure and follow-up with her PCP, strict return instructions were given and she was discharged home in stable condition. I have personally performed a face to face assessment of the patient and have reviewed the JUNAID note. I personally made/approved the management plan and take responsibility for the patient management. I performed a substantive portion of the visit including all aspects of the following. My montoya findings include: Mechanical fall head injury hitting a table while trying to kill a spider. No anticoagulants. No loss of consciousness. No chest or back pain. Tetanus unknown. Exam 1.5 cm scalp laceration the crown dried blood noted. GCS 15. No focal neurological deficits. No neck or back tenderness. Trauma scans head neck obtained per myself read by radiology shows no acute process. Tetanus updated, laceration repaired by first coat operator with delon. Outpatient follow-up. Radiography Diagnostic Testing: Clinical Impression(s) from Imaging Studies Brain CT 11/06/23 14:21 IMPRESSION: Volume loss with chronic white matter changes. No acute intracranial findings. Electronically Signed: Servando Alfred MD at 15:56 EDT , Cervical Spine CT 11/06/23 14:21 IMPRESSION: Degenerative changes. No acute fracture of the cervical spine. Electronically Signed: Servando Alfred MD at 16:03 EDT , <Dr. Sandeep Suarez, DO - Last Filed: 11/06/23 21:32> [facility] Narrative Medical decision making narrative: Patient presenting today with a 1.5 cm full-thickness linear laceration to her posterior scalp after mechanical fall occurred this afternoon, she fell backwards and hit the back of her head on a small piece of furniture when she was try to kill a spider. Head CT and neck CT will be obtained to rule out intracranial bleed and cervical fracture. She is otherwise well-appearing and in no acute distress I have personally performed a face to face assessment of the patient and have reviewed the JUNAID note. I personally made/approved the management plan and take responsibility for the patient management. I performed a substantive portion of the visit including all aspects of the following. My montoya findings include: Mechanical fall head injury hitting a table while trying to kill a spider. No anticoagulants. No loss of consciousness. No chest or back pain. Tetanus unknown. Exam 1.5 cm scalp laceration the crown dried blood noted. GCS 15. No focal neurological deficits. No neck or back tenderness. Trauma scans head neck obtained per myself read by radiology shows no acute process. Tetanus updated, laceration repaired by first coat operator with delon. Outpatient follow-up. Radiography Diagnostic Testing: Clinical Impression(s) from Imaging Studies Brain CT 11/06/23 14:21 IMPRESSION: Volume loss with chronic white matter changes. No acute intracranial findings. Electronically Signed: Servando Alfred MD at 15:56 EDT , Cervical Spine CT 11/06/23 14:21 IMPRESSION: Degenerative changes. No acute fracture of the cervical spine. Electronically Signed: Servando Alfred MD at 16:03 EDT , Procedures <VINCE Weston - Last Filed: 11/06/23 18:33> Lacerations Laceration: Length: 0.59 in Depth: Sub Q Shape: Linear Prep: - (Hydrogen peroxide) Laceration repair: Irrigated and Lidocaine with epi Number of Sutures/[place]: 3 Comment: [place] Discharge Plan Triage Chief Complaint: Fall ED Midlevel Provider: Kacey Wayne ED Provider: Sandeep Suarez Dx/Rx/DC Orders Clinical Impression: Head injury, Hypertension, Laceration of head Instructions: ED Head Injury (Adult), ED Laceration, All Closures Prescriptions: No Action mecobalamin (vitamin B12) 500 mcg tablet,chewable PO docusate sodium [Dulcolax Stool Softener (dss)] 100 mg capsule 100 mg PO BID Alive Women's Gummy Vitamin 120 mcg- 37.5 mg tablet,chewable PO DAILY acetaminophen 325 mg capsule 650 mg PO BID PRN (Reason: pain) levothyroxine 125 mcg tablet 125 mcg PO QDAY ibuprofen 400 mg tablet 400 mg PO DAILY PRN zoledronic tykx-lrxbicpj-cmgnn 5 mg/100 mL piggyback 1 ea .Route ONCE Qty: 100 0RF Rx Instructions: infuse over 20 minutes tramadol 50 MG tablet 50 mg PO BID ezetimibe [Zetia] 10 mg tablet 10 mg PO DAILY cholecalciferol (vitamin D3) 50 mcg (2,000 unit) tablet 2,000 unit PO DAILY Patient Comments: SUPPLEMENT carvedilol 25 mg tablet 25 mg PO BID Qty: 180 3RF carbidopa-levodopa [Sinemet] 25-100 mg tablet See Rx Instructions .ROUTE .COMPLEX Qty: 180 7RF Rx Instructions: Take 1 tablet orally every morning upon awakening, 1 tablet later in the morning, 2 tablets in the early afternoon and 2 tablets in the evening. calcium carbonate [Calcium 600] 600 mg calcium (1,500 mg) tablet 600 mg PO BID Qty: 60 7RF Primary Care Provider: Sukumar Camargo Referrals: Sukumar Camargo DO [Primary Care Provider] - 10-14 Days suture removal Activity Restrictions/Additional Instructions: I have delon removed in 10 to 14 days, please keep an eye on your blood pressure and return if you develop any chest pain, shortness of breath, or other concerning symptoms. Print Language: Cook Islander Disposition Disposition: Home, Self Care Discharge Date/Time: 11/06/23 17:25
[2023-11-06] MEDS: Diphth,Pertuss(Acell),Tet Vac 0.5 ML Vial IM (15:16)
[2023-11-06 15:54] VITALS: BP 208/110; PULSE 78; RESP 16; O2SAT 98
[2023-11-06] MEDS: Lidocaine 1% /Epi 1:100 (20ml) 20 ML Vial 10 ML INFILT (16:08)
--- NOTE | 2023-11-06 16:51 | NURSING ---
CALLED TRANSPORT 30-45 MIN
[2023-11-06 17:10] VITALS: BP 200/96; PULSE 87; RESP 16; TEMP 36.6; O2SAT 98
== END 2023-11-06 17:25 | disposition home or self-care (01) ==
PROVIDERS: Emergency Provider Emergency Medicine; PCP Family Medicine; Visit Provider Emergency Medicine
DX: S01.91XA Laceration without foreign body of unspecified part of head, initial encounter (principal); E11.9 Type 2 diabetes mellitus without complications; Z87.891 Personal history of nicotine dependence; I10 Essential (primary) hypertension; E78.5 Hyperlipidemia, unspecified; W18.39XA Other fall on same level, initial encounter; Y93.89 Activity, other specified; I25.2 Old myocardial infarction; Z79.899 Other long term (current) drug therapy; Z96.643 Presence of artificial hip joint, bilateral; Z90.49 Acquired absence of other specified parts of digestive tract
CPT/HCPCS: 12001; 70450; 72125; 90715; 99282

== ENCOUNTER → 2023-12-22 | Outpatient (CLI) | payer MEDICARE, SELFPAY ==
[2023-12-22 14:55] LABS: Absolute Lymphocyte Count 1.83 X10^3/uL (0.83-4.51); Absolute Neutrophil Count 3.7 X10^3/uL (2.0-7.7); Basophil# 0.04 X10^3/uL; Basophil% 0.7 % (0-1); Eosinophil# 0.07 X10^3/uL; Eosinophils% 1.1 % (0-5); Hematocrit 41.2 % (37-47); Hemoglobin 12.7 g/dL (12.0-15.0); Lymphocyte # 1.83 X10^3/ul (0.83-4.51); Lymphocyte % 29.9 % (19-41); Mean Corp Hgb Conc 30.8 g/dL (32-36); Mean Corpuscular Hgb 28.2 pg (27.0-32.0); Mean Corpuscular Volume 91.4 fL (81-99); Mean Platelet Vol. 9.7 fl (6.2-12.0); Monocyte# 0.49 X10^3/uL; NRBC Flagged by Analyzer 0 % (0-5); Neutrophil # 3.68 X10^3/uL (2.7-7.7); Neutrophil % 60.1 % (47-70); Platelet Count 305 K/mm3 (150-450); RBC Distribution Width CV 13.3 % (11.6-14.6); RBC Distribution Width SD 44.9 fl (35.1-43.9); Red Blood Count 4.51 M/mm3 (4.2-5.4); White Blood Count 6.1 K/mm3 (4.4-11.0)
[2023-12-22 15:39] LABS: AST(SGOT) 18 U/L (15-37); Alanine Aminotransfer ALT/SGPT 11 U/L (13-56); Albumin, Serum 3.7 g/dL (3.2-5.0); Alkaline Phosphatase 54 U/L (45-117); Anion Gap 5 (5-15); BUN 17 mg/dL (7-18); BUN/Creat Ratio 34.6 RATIO (10-20); Calcium,Total 10.2 mg/dL (8.5-10.1); Chloride 104 mmol/L (98-107); Cholesterol 231 mg/dL (200); Creatinine, Serum 0.49 mg/dL (0.55-1.02); EST Glomerular Filtration Rate 127 mL/min (>60); Est Glom Filt Rate - Afr Amer 153 mL/min (>60); Globulin 3.7 g/dL (2.2-4.2); Glucose 75 mg/dL (74-106); High Density Lipoprotein 76 mg/dL; Protein, Total 7.4 g/dL (6.4-8.2); Sodium Level 138 mmol/L (136-145); T4 Free Direct 1.52 ng/dL (0.76-1.46); Thyroid Stim Hormone (TSH) 0.103 uIU/mL (0.358-3.740); Triglycerides 129 mg/dL; Very Low Density Lipoprotein 26 mg/dL (5-40)
== END | disposition home or self-care (01) ==
LOC: BFHLAB 11:20
PROVIDERS: PCP Family Medicine; Referring Provider Family Medicine; Visit Provider Family Medicine
DX: I10 Essential (primary) hypertension (principal); E78.5 Hyperlipidemia, unspecified; E03.9 Hypothyroidism, unspecified
CPT/HCPCS: 36415; 80053; 80061; 84439; 84443; 85025

== ENCOUNTER 2024-08-21 18:30 | Emergency (ER) | payer MEDICARE, SELFPAY ==
[2024-08-21 18:32] VITALS: BP 136/70; PULSE 58; RESP 16; TEMP 36.2; O2SAT 96; BMI 24.6
--- NOTE | 2024-08-21 19:01 | EKG12_ITS ---
Test Reason : WEAKNESS Blood Pressure : */* mmHG Vent. Rate : 55 BPM Atrial Rate : 55 BPM P-R Int : 184 ms QRS Dur : 88 ms QT Int : 458 ms P-R-T Axes : 4 -15 101 degrees QTcB Int : 438 ms Sinus bradycardia Left ventricular hypertrophy with repolarization abnormality ( R in aVL , [place] product ) Abnormal ECG Confirmed by Elan Farfan ([id number]), news editor MONA KEARNEY ([id number]) on 08/23/2024 6:57:11 AM Referred By: Confirmed By: Elan Farfan
[2024-08-21 19:31] LABS: Absolute Lymphocyte Count 1.62 X10^3/uL (0.83-4.51); Absolute Neutrophil Count 3.1 X10^3/uL (2.0-7.7); Basophil# 0.04 X10^3/uL; Basophil% 0.8 % (0-1); Eosinophil# 0.13 X10^3/uL; Eosinophils% 2.4 % (0-5); Hematocrit 38.6 % (37-47); Hemoglobin 12.8 g/dL (12.0-15.0); Lymphocyte # 1.62 X10^3/ul (0.83-4.51); Lymphocyte % 30.5 % (19-41); Mean Corp Hgb Conc 33.2 g/dL (32-36); Mean Corpuscular Hgb 29.6 pg (27.0-32.0); Mean Corpuscular Volume 89.4 fL (81-99); Mean Platelet Vol. 9.2 fl (6.2-12.0); Monocyte% 7.5 % (0-10); NRBC Flagged by Analyzer 0 % (0-5); Neutrophil # 3.11 X10^3/uL (2.7-7.7); Neutrophil % 58.6 % (47-70); Platelet Count 278 K/mm3 (150-450); RBC Distribution Width CV 13.4 % (11.6-14.6); RBC Distribution Width SD 43.9 fl (35.1-43.9); Red Blood Count 4.32 M/mm3 (4.2-5.4); White Blood Count 5.3 K/mm3 (4.4-11.0)
[2024-08-21 19:56] VITALS: BP 195/84; BP 196/82; BP 196/90; PULSE 60; PULSE 64; PULSE 95
[2024-08-21 19:56] LABS: Anion Gap 12 (5-15); BUN 24 mg/dL (4-19); BUN/Creat Ratio 44.2 RATIO (10-20); Calcium,Total 10.2 mg/dL (7.6-11.0); Carbon Dioxide 24.6 mmol/L (21.0-32.0); Chloride 103 mmol/L (98-108); Creatinine, Serum 0.54 mg/dL (0.70-1.20); EST Glomerular Filtration Rate 89 (>60); Estimated Creatinine Clearance 42.66 ml/min (50-250); Glucose 143 mg/dL (70-99); Potassium 3.9 mmol/L (3.3-5.1); Sodium Level 139 mmol/L (133-145)
[2024-08-21 20:11] LABS: Bacteria 0 SEEN /hpf (None Seen); Mucous, Urine 0 SEEN /hpf (<or=2+); Red Blood Cells-Urine 0 SEEN /hpf (0-5)
[2024-08-21 20:30] VITALS: BP 202/85; PULSE 62; RESP 15; O2SAT 100
[2024-08-21 20:37] LABS: Color, Urine Yellow (Yellow); Glucose, Dipstick Normal (Normal); Ketone-Dipstick 5 mg/dl (Negative); Leukocyte Esterase-Dipstick 25 /ul (Negative); Nitrite-Dipstick Negative (Negative); Occult Blood-Urine 10 /ul (Negative); Protein-Dipstick 30 mg/dl (Negative); Specific Gravity, Urine 1.025 (1.002-1.030); Urine Bilirubin Dipstick Negative (Negative); Urine Clarity Clear (Clear); Urine Urobilinogen Normal (Normal)
[2024-08-21 20:39] VITALS: BP 197/82; PULSE 63; RESP 18; O2SAT 100
[2024-08-21 21:00] LABS: Hyaline Cast 0-5 SEEN /lpf (0-5); White Blood Cells 0-5 SEEN /hpf (0-5)
[2024-08-21 21:01] LABS: Squamous Epithelial Cells - UA 0-5 SEEN /hpf (5-10)
[2024-08-21 22:06] VITALS: BP 190/68; PULSE 69; RESP 16; O2SAT 100
--- NOTE | 2024-08-21 22:54 | EDS_ITS ---
HPI History of Present Illness Chief Complaint: Weakness Detail of Chief Complaint: Patient has no complaints and does not know why she is here. 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 She has absolutely no complaints. Review of systems was negative for all questions asked. According to family member who arrived after workup was initiated she had a low heart rate and low blood pressure which would be suggestive of vasovagal episode. Per family patient does not have a history of memory dysfunction. She does have history of Parkinson's with autonomic dysfunction, CVA, benign paroxysmal positional vertigo, diabetes mellitus, hypothyroidism, essential hypertension and hyperlipidemia. Prior similar symptoms: No Recent Illness/Hospitalization: No PFSH PFSH Medical History Parkinsons disease Transaminitis Inability to walk Hypercalcemia Debility Colitis Back pain Old anterior wall myocardial infarction Osteoarthritis Asthma Essential (primary) hypertension Controlled diabetes mellitus with peripheral circulatory disorder HLD (hyperlipidemia) Palpitations Other chest pain Takotsubo cardiomyopathy Home Medications ?Medication ?Instructions ?Recorded ?Last Taken ?Type ezetimibe 10 mg tablet (Zetia) 10 mg PO DAILY choleste rol 12/15/17 02/20/22 History tramadol 50 mg tablet 50 mg PO BID pain 05/08/19 1 04/23/21 History cholecalciferol (vitamin D3) 50 2,000 unit PO DAILY brown pplement 10/25/19 02/20/22 History mcg (2,000 unit) tablet carvedilol 25 mg tablet 25 mg PO BID BP #180 tabs 02/20/22 Rx mecobalamin (vitamin B12) 500 mcg 500 mcg PO DAILY Unknown History chewable tablet vnnnivwx-wflp-ixvom acid 120 1 tab PO DAILY 01/06/23 U nknown History mcg-herb no.293 37.5 mg chewable tablet (Alive Women's Gummy Vitamin) carbidopa 25 mg-levodopa 100 mg See Rx Instructions .R oute 09/08/23 Unknown Rx tablet (Sinemet) .COMPLEX #180 tabs docusate sodium 100 mg capsule 100 mg PO BID pain 08/13 10/04 Unknown History (Dulcolax Stool Softener (docusate)) ibuprofen 400 mg tablet 400 mg PO DAILY PRN fever or pain 09/08/23 Unknown History losartan 50 mg tablet 50 mg PO QDAY #30 tabs 02/27 Unknown Rx levothyroxine 100 mcg tablet 100 mcg PO QDAY #90 tabs 06/19/24 Unknown Rx acetaminophen 325 mg capsule 650 mg PO BID PRN fever o r pain 08/21/24 Unknown History ketorolac 0.5 % eye drops 1 drp ophthalmic (eye) Q6H 0 08/21/24 Unknown History ofloxacin 0.3 % eye drops 1 drp ophthalmic (eye) Q6H 0 08/21/24 Unknown History Allergy/AdvReac Type Severity Reaction Status Date / Time amoxicillin Allergy Unknown Unknown Verified 08/21/24 18:32 Anesthetics - Amide Type - Allergy Unknown Verified 08/21/24 18:32 Select A (Anesthetics - Amide Type) Anesthetics - Lizzette Type- Allergy Unknown Verified 08/21/24 18:32 Parabens (Anesthetics - Lizzette Type) Tuqgoqw-XHP-XjO Reductase AdvReac Severe Myalgia Verified 08/21/24 18:32 Inhibitor (Hxkxmrp-Kjl-Hhu Reductase Inhibitor) Family History Father , age 83 Colon cancer Mother , age 90 CHF (congestive heart failure) Brother , age 68 Diabetes Sister CVA (cerebral vascular accident) Daughter Hypertension Daughter Thyroid disorder Surgical History History of left hip replacement History of right hip replacement (~2016) History of fractured pelvis (~2013) History of dilation and curettage (~1994) History of back surgery (~2016) History of left heart catheterization (LHC) (03/2010) History of cholecystectomy (~2005) History of tonsillectomy Social History household members: none housing: house Smoking Status: Former smoker how long ago did patient quit smokin alcohol intake: never substance use type: does not use caffeine: No do you feel safe at home: Yes ROS ROS ED Constitutional Constitutional ED: Denies chills, fever(s), subjective or sweats Eyes Eyes: Denies blurry vision or change in vision ENT ENT ED: Denies ear pain, rhinorrhea or sore throat Cardiovascular Cardiovascular: Denies chest pain, orthopnea, palpitations or paroxysmal nocturnal dyspnea Respiratory/Chest Respiratory/Chest: Denies cough, dyspnea, dyspnea on exertion, orthopnea or paroxysmal nocturnal dyspnea Gastrointestinal Gastrointestinal: Denies abdominal pain, nausea or vomiting Genitourinary Genitourinary ED: Denies dysuria, hematuria or urinary frequency Musculoskeletal Musculoskeletal: Denies back pain or neck pain Integumentary Denies rash Neurologic Neurologic: Denies headache(s), paresthesias or weakness Endocrine Endocrinology: Denies cold intolerance or heat intolerance EXAM Physical Exam Const Vital Signs: 08/21/24 18:32 08/21/24 18:37 08/21/24 19:56 Temperature 97.1 F L Temperature Source Temporal Pulse Rate 58 L Pulse Rate [Lying] 60 Pulse Rate [Sitting (for 1 minute prior to obtaining)] 64 Pulse Rate [Standing (for 1 minute prior to obtaining)] 95 Respiratory Rate 16 Respiratory Effort Normal Non-Labored Blood Pressure 136/70 H Blood Pressure [Lying] 195/84 H Blood Pressure [Sitting (for 1 minute prior to obtaining)] 196/90 H Blood Pressure [Standing (for 1 minute prior to obtaining)] 196/82 H Blood Pressure Mean 92 Blood Pressure Mean [Lying] 121 Blood Pressure Mean [Sitting (for 1 minute prior to obtaining)] 125 Blood Pressure Mean [Standing (for 1 minute prior to obtaining)] 120 Pulse Ox 96 Oxygen Delivery Method Room Air 08/21/24 20:30 08/21/24 20:39 08/21/24 22:06 Temperature Temperature Source Pulse Rate 62 63 69 Pulse Rate [Lying] Pulse Rate [Sitting (for 1 minute prior to obtaining)] Pulse Rate [Standing (for 1 minute prior to obtaining)] Respiratory Rate 15 18 16 Respiratory Effort Blood Pressure 202/85 H 197/82 H 190/68 H Blood Pressure [Lying] Blood Pressure [Sitting (for 1 minute prior to obtaining)] Blood Pressure [Standing (for 1 minute prior to obtaining)] Blood Pressure Mean 124 120 108 Blood Pressure Mean [Lying] Blood Pressure Mean [Sitting (for 1 minute prior to obtaining)] Blood Pressure Mean [Standing (for 1 minute prior to obtaining)] Pulse Ox 100 100 100 Oxygen Delivery Method Room Air Room Air Room Air Positive well developed Constitutional Narrative: Patient appears no distress. Vital signs noted. She has an elevated blood pressure. Per son there has been problems regulating her blood pressure due to the autonomic dysfunction secondary to Parkinson's disease. General Appearance ED: well developed; Negative for pallor HEENT Reports moist mucous membranes HEENT Narrative: Head is atraumatic normocephalic. Ears normal. TMs normal. Nares patent. Uvula midline. No deviation of the tongue with protrusion. Mucosa is moist. Eyes PERRL and EOMs intact bilaterally General Eye ED: Negative for pale conjunctiva or scleral icterus Neck no lymphadenopathy, supple and no JVD Chest Wall inspection of chest normal and palpation of chest normal Resp normal respiratory effort and clear to auscultation bilaterally Cardio regular rate, regular rhythm, S1 normal heart sound, S2 normal heart sound and no murmurs GI normal to inspection, nondistended, normoactive bowel sounds, non-tender, non- distended and no masses; Negative for hepatosplenomegaly Back/Spine no CVA tenderness Extremity normal to inspection General Extremety ED: Negative for tenderness Neuro oriented x3 and CN's II-XII intact bilaterally Neuro Narrative: Moves all extremities. Sensorium / Orientation: alert Psych mental status grossly normal Skin no rashes or lesions noted, no wounds and skin turgor normal General Skin Exam: Negative for jaundice or pallor MDM MDM MDM Narrative Medical decision making narrative: Initially uncertain why patient was here. Based on history obtained from family she most likely had a vasovagal episode. Blood work was obtained to assess for metabolic or infectious cause and UA to rule out urinary tract infection. History & Record Review Additional record(s) reviewed:: Prior inpatient record (Admitted February 2022 for debility, hypokalemia, hypertension, osteoporosis and chronic pain.), Prior outpatient record (She is seen by Dr. Efrem Casas for hypothyroidism. Office visit from June was reviewed. She is also seen by hematology for monoclonal gammaglobulin apathy. Records from outside facility from last year were obtained and reviewed for head injury. June [address] Casas for diabetes and hyperthyroi), Prior ED visit and Prior labs Lab Data Attestation: I reviewed the patient's lab results. Lab results narrative: CBC is normal. Basic metabolic panel reveals an elevated BUN at 24 with a creatinine 0.54 and a BUN to creatinine ratio 44:1. Urine specific gravity slightly elevated 1.025. Labs: Laboratory Results - last 24 hr 08/21/24 08/21/24 18:23 20:00 WBC 5.3 RBC 4.32 Hgb 12.8 Hct 38.6 MCV 89.4 MCH 29.6 MCHC 33.2 RDW Std Deviation 43.9 RDW Coeff of [place] 13.4 Plt Count 278 MPV 9.2 Immature Gran % (Auto) 0.200 Neut % (Auto) 58.6 Lymph % (Auto) 30.5 [place] % (Auto) 7.5 Eos % (Auto) 2.4 Baso % (Auto) 0.8 Absolute Neuts (auto) 3.1 Absolute Lymphs (auto) 1.62 Nucleated RBC % 0 Sodium 139 Potassium 3.9 Chloride 103 Carbon Dioxide 24.6 Anion Gap 12 BUN 24 H Creatinine 0.54 L Estim Creat Clear Calc 42.66 L Est GFR (MDRD) Non-Af 89 BUN/Creatinine Ratio 44.2 H Glucose 143 H Calcium 10.2 Urine Color Yellow Urine Clarity Clear Urine pH 6.0 Ur Specific [place] 1.025 Urine Protein 30 H Urine Glucose (UA) Normal Urine Ketones 5 H Urine Occult Blood 10 H Urine Nitrite Negative Urine Bilirubin Negative Urine Urobilinogen Normal Ur Leukocyte Esterase 25 H Urine RBC 0 SEEN Urine WBC 0-5 SEEN Ur Squamous Epith Cells 0-5 SEEN Urine Bacteria 0 SEEN Hyaline Casts 0-5 SEEN Urine Mucus 0 SEEN Treatment and Re-Evaluation :: Patient and family were informed of results. She was discharged back to the nursing facility. Discharge Plan Triage Chief Complaint: Weakness ED Provider: Shahzad Yates Dx/Rx/DC Orders Clinical Impression: Syncope, vasovagal, HLD (hyperlipidemia), Essential (primary) hypertension, Hypertension, Diabetes mellitus, Monoclonal gammopathy, Parkinson's disease, Autonomic dysfunction Instructions: ED Hypertension, Established, ED Near-Fainting- Vagal Reaction Prescriptions: No Action mecobalamin (vitamin B12) 500 mcg tablet,chewable 500 mcg PO DAILY docusate sodium [Dulcolax Stool Softener (dss)] 100 mg capsule 100 mg PO BID Alive Women's Gummy Vitamin 120 mcg- 37.5 mg tablet,chewable 1 tab PO DAILY ibuprofen 400 mg tablet 400 mg PO DAILY PRN (Reason: fever or pain) levothyroxine 100 mcg tablet 100 mcg PO QDAY Qty: 90 3RF losartan 50 mg tablet 50 mg PO QDAY Qty: 30 7RF tramadol 50 MG tablet 50 mg PO BID acetaminophen 325 mg capsule 650 mg PO BID PRN (Reason: fever or pain) ketorolac 0.5 % drops 1 drp ophthalmic (eye) Q6H Rx Instructions: LEFT EYE ofloxacin 0.3 % drops 1 drp ophthalmic (eye) Q6H Patient Comments: [NO ORIGINAL SIG] Rx Instructions: LEFT EYE ezetimibe [Zetia] 10 mg tablet 10 mg PO DAILY cholecalciferol (vitamin D3) 50 mcg (2,000 unit) tablet 2,000 unit PO DAILY Patient Comments: SUPPLEMENT carvedilol 25 mg tablet 25 mg PO BID Qty: 180 3RF carbidopa-levodopa [Sinemet] 25-100 mg tablet See Rx Instructions .ROUTE .COMPLEX Qty: 180 7RF Rx Instructions: Take 1 tablet orally every morning upon awakening, 1 tablet later in the morning, 2 tablets in the early afternoon and 2 tablets in the evening. Primary Care Provider: Sukumar Camargo Referrals: Sukumar Camargo DO [Primary Care Provider] - 1-2 Weeks Print Language: [place] Disposition Disposition: Home, Self Care
[2024-08-21 23:07] VITALS: BP 178/90; PULSE 90; RESP 16; TEMP 37.1; O2SAT 100
== END 2024-08-21 23:18 | disposition home or self-care (01) ==
PROVIDERS: Emergency Provider Emergency Medicine; PCP Family Medicine; Visit Provider Emergency Medicine
DX: R53.1 Weakness (principal); G20.A1 Parkinson's disease without dyskinesia, without mention of fluctuations; E11.41 Type 2 diabetes mellitus with diabetic mononeuropathy; R55 Syncope and collapse; I95.9 Hypotension, unspecified; E03.9 Hypothyroidism, unspecified; I10 Essential (primary) hypertension; E78.5 Hyperlipidemia, unspecified; Z87.891 Personal history of nicotine dependence; D47.2 Monoclonal gammopathy; Z86.73 Personal history of transient ischemic attack (TIA), and cerebral infarction without residual deficits; I25.2 Old myocardial infarction; Z79.899 Other long term (current) drug therapy; Z79.890 Hormone replacement therapy; Z96.643 Presence of artificial hip joint, bilateral; Z90.49 Acquired absence of other specified parts of digestive tract; G90.9 Disorder of the autonomic nervous system, unspecified
CPT/HCPCS: 80048; 81001; 85025; 93005; 99285

== ENCOUNTER → 2024-08-21 | Outpatient (REF) | payer MEDICARE, SELFPAY ==
--- OUTSIDE RECORDS SUMMARY | 2024-08-21 03:51 | XMS RPT_ITS | CCD ---
Author Organization [facility] Care Team Providers Care Implant Coordinator Name Role Phone Unavailable Primary Care Provider Dr. Bill Person Primary Care Provider Dr. Bill Castaneda Referring Provider Dr. Efrem Casas Attending Provider Dr. Bill Castaneda Primary Care Provider Dr. Bill Castaneda Referring Provider Dr. Efrem Casas Attending Provider ANGIE Gottlieb Attending Provider Dr. Fela Bañuelos Emergency Provider Dr. Vonda Plummer Admit Provider Dr. Vonda Plummer Attending Provider Dr. Vonda Plummer Other Provider Dr. Sruthi Ortiz Attending Provider [phone] Sruthi Ortiz Other Provider Dr. Bill Castaneda Primary Care Provider Dr. Fela Bañuelos Emergency Provider Dr. Vonda Plummer Admit Provider Dr. Vonda Plummer Attending Provider Dr. Vonda Plummer Other Provider Dr. Sruthi Ortiz Attending Provider Dr. Sruthi Ortiz Other Provider Dr. Pollo Caal Attending Provider Dr. Sukumar Camargo Primary Care Provider [phone] Dr. Sukumar Camargo Referring Provider [phone] Sukumar Camargo Primary Care Provider [phone] Dr. Sukumar Camargo Referring Provider [phone] Pollo Caal Attending Provider [phone] Dr. Sukumar Camargo Primary Care Provider [phone] Dr. Sukumar Camargo Referring Provider [phone] Pollo Caal Attending Provider [phone] Dr. Efrem Casas Attending Provider Efrem Casas Attending Unavailable Augusto, Efrem Referring Unavailable Raman, Sukumar Primary Care Unavailable [facility] [place] Attending Unavailable Raman, Sukumar Primary Care Unavailable Augusto, Efrem Attending Unavailable Augusto, Efrem Referring Unavailable Raman, Sukumar Primary Care Unavailable Raman, Sukumar Primary Care Unavailable Pollo Caal Attending Unavailable Baddojennifer, Pollo Referring Unavailable Raman, Sukumar Attending Unavailable Raman, Sukumar Referring Unavailable Raman, Sukumar Primary Care Unavailable Sandeep Suarez Attending Unavailable Raman, Sukumar Primary Care Unavailable Prah, Randy Attending Unavailable Prah, Randy Referring Unavailable Raman, Sukumar Primary Care Unavailable Prah, Randy Attending Unavailable Baddour, Pollo Referring Unavailable Raman, Sukumar Primary Care Unavailable AugustoEfrem Attending Unavailable Raman, Sukumar Referring Unavailable Raman, Sukumar Primary Care Unavailable Raman, Sukumar Primary Care Unavailable Roof FARM OPERATOR, Vijay Vincent Attending Unavailable Bill Castaneda Referring Unavailable Raman, Sukumar Primary Care Unavailable BaddoPollo rodriguez Attending Unavailable Ten, Pollo Referring Unavailable Badroscoe, Pollo Attending Unavailable Raman, Sukumar Referring Unavailable Raman, Sukumar Primary Care Unavailable Allergies Allergy Classification Reported Allergen(s) Allergy Type Date of Onset Reaction(s) Facility (9 sources) Amoxicillin Drug Allergy 2 Unknown [facility] (9 sources) Anesthetics - Amide Type - Select A Allergy to substance 2 Unknown [facility] (9 sources) Anesthetics - Lizzette Type- Parabens Allergy to substance 2 Unknown [facility] (9 sources) Eogiuxh-Xfw-Gym Reductase Inhibitor Propensity to adverse reactions 2 Myalgia [facility] (1 source) Amoxicillin Drug Allergy 5 [facility] (1 source) Anesthetics - Amide Type - Select A Drug allergy (disorder) 5 [facility] (1 source) Anesthetics - Lizzette Type- Parabens Drug allergy (disorder) 5 [facility] (1 source) Vtfsawz-Nbi-Phu Reductase Inhibitor Drug allergy (disorder) 5 [facility] Medications Current Medications Medication Drug Class(es) Dates Sig (Normalized) Sig (Original) acetaminophen 325 mg oral capsule (20 sources) Start: 01-06-2023 take 650 mg by mouth once Acetaminophen Active 650 MG PO ONCE January 06, 2023 12:00am Start: 10-08-2019 End: 10-25-2019 take 1000 mg by mouth three times daily Acetaminophen Discontinued 1000 MG PO TID@0000,0800,1600 October 08, 2019 12:00am October 25, 2019 3:58pm Start: 06-19-2018 End: 10-08-2019 take 500 mg by mouth twice daily Acetaminophen Discontinued 500 MG PO TWICE A DAY June 19, 2018 9:54am October 08, 2019 9:14pm Start: 12-07-2016 End: 06-19-2018 take 1000 mg by mouth every eight hours Acetaminophen Discontinued 1000 MG PO EVERY 8 HOURS December 07, 2016 12:00am June 19, 2018 9:55am carbidopa 25 mg / levodopa 100 mg oral tablet (6 sources) Aromatic Amino Acid Decarboxylation Inhibitor, Aromatic Amino Acid Start: 06-15-2023 take 2 tablets by mouth three times daily Carbidopa-Levodopa (Sinemet) 25-100 mg tablet Active 2 TABLET PO THREE TIMES A DAY June 15, 2023 9:06am 2 tabs orally three times a day; Start: 01-06-2023 End: 06-15-2023 take 1 tablet by mouth once daily in the morning, then take 2 tablets by mouth once daily in the evening, then take 2 tablets by mouth once daily in the morning, then take 1 tablet by mouth once, then take 2 tablets by mouth three times daily Carbidopa-Levodopa (Sinemet) 25-100 mg tablet Discontinued 0 .ROUTE .COMPLEX 180 May 03, 2023 12:42pm June 15, 2023 9:08am Take 1 tab orally every morning and noon and 2 tab every evening for for 1 week then 2 tabs every morning and evening and 1 tab every noon for 1 week then 2 tab 3 times daily thereafter cholecalciferol 0.05 mg oral tablet (18 sources) Vitamin D Start: 10-25-2019 take 2000 [IU] by mouth once daily Cholecalciferol (Vitamin D3) Active 2000 UNIT PO DAILY October 25, 2019 3:57pm Start: 10-17-2013 End: 10-25-2019 take 1000 [IU] by mouth once daily Cholecalciferol (Vitamin D3) Discontinued 1000 UNIT PO DAILY October 17, 2013 12:00am October 25, 2019 3:58pm docusate sodium 100 mg oral capsule (18 sources) Start: 12-31-2021 take 1 capsule by mouth once daily Docusate Sodium (Dulcolax Stool Softener (Dss)) 100 mg capsule Active 100 MG PO DAILY December 31, 2021 12:00am Start: 10-17-2013 End: 11-04-2013 Docusate Sodium (Promolaxin) 100 MG tablet Discontinued 100 MG PO NEEDED October 17, 2013 12:00am November 04, 2013 11:13am ezetimibe 10 mg oral tablet (9 sources) Dietary Cholesterol Absorption Inhibitor Start: 12-15-2017 take 1 tablet by mouth once daily Ezetimibe (Zetia) 10 mg tablet Active 10 MG PO DAILY December 15, 2017 12:00am ibuprofen 200 mg oral tablet (8 sources) Nonsteroidal Anti-inflammatory Drug Start: 06-15-2023 Ibuprofen (Ibuprofen Ib) 200 mg tablet Active 400 MG PO DAILY NEEDED June 15, 2023 9:08am Start: 02-20-2022 End: 06-15-2023 take 1 tablet by mouth once daily as needed Ibuprofen (Ibuprofen Ib) 200 mg tablet Discontinued 200 MG PO DAILY NEEDED February 20, 2022 1:00am June 15, 2023 9:08am Start: 02-20-2022 take 1 tablet by aayush twice daily Ibuprofen (Ibuprofen Ib) 200 mg tablet Active 200 MG PO TWICE A DAY February 20, 2022 12:00am levothyroxine sodium 0.125 mg oral capsule (20 sources) l-Thyroxine Start: 05-03-2023 take 125 ug by mouth once daily Levothyroxine Active 125 MCG PO DAILY May 03, 2023 1:00am Start: 05-08-2019 End: 05-03-2023 take 2 tablets by mouth once daily Levothyroxine Discontinued 112 MCG PO DAILY@0600 May 08, 2019 12:46pm May 03, 2023 12:22pm 2 tablets on Tuesday Start: 12-05-2016 End: 05-08-2019 take 112 ug by mouth once daily Levothyroxine Disconti nued 112 MCG PO DAILY@0600 December 07, 2016 12:00am May 08, 2019 12:46pm Start: 12-04-2016 End: 12-07-2016 take 116 ug by mouth once daily Levothyroxine Disconti nued 116 MCG PO DAILY December 04, 2016 6:19am December 07, 2016 3:18pm Start: 05-14-2016 End: 12-04-2016 Levothyroxine Discontinued 5 0 MCG PO MOTUWETHFRSA@0600 May 14, 2016 1:00am December 04, 2016 6:19am mecobalamin (3 sources) Start: 09-09-2022 Mecobalamin (V itamin B12) Active MCG PO September 08, 2022 11:00pm Start: 09-09-2022 Mecobalamin (V itamin B12) Active MCG PO September 09, 2022 12:00am Jenaufbt-Kzm-Tzyvl Acid-Drq440 (Alive Women's Gummy Vitamin) 120 mcg- 37.5 mg tablet,chewable (3 sources) Start: 01-06-2023 take 1 tablet by mouth once daily Qddtscpq-Sgb-Hstgp Acid-Tfx324 (Alive Women's Gummy Vitamin) 120 mcg- 37.5 mg tablet,chewable Active TABLET PO DAILY January 05, 2023 11:00pm Start: 01-06-2023 take 1 tablet by aayush th once daily Nqsnlkix-Ver-Ezqvg Acid-Etn674 (Alive Women's Gummy Vitamin) 120 mcg- 37.5 mg tablet,chewable Active TABLET PO DAILY January 06, 2023 12:00am traMADol hydrochloride 50 mg oral tablet (20 sources) Opioid Agonist Start: 05-08-2019 take 50 mg by mouth twice daily Tramadol Active 50 MG PO TWICE A DAY May 08, 2019 1:35pm Start: 12-07-2016 End: 05-08-2019 take 50 mg by mouth every six hours as needed Tramadol Discontinued 50 MG PO EVERY 6 HOURS NEEDED December 17, 2016 10:59am May 08, 2019 1:35pm Start: 06-26-2014 End: 12-04-2016 take 50 mg by mouth every six hours Tramadol Discontinued 50 MG PO EVERY 6 HOURS 60 May 14, 2016 4:06pm December 04, 2016 6:19am vitamin b12 0.5 mg chewable tablet (2 sources) Vitamin B12 Start: 09-24-2019 take 500 ug by mouth once daily Cyanocobalamin (Vitamin B-12) Active 500 MCG PO DAILY September 24, 2019 12:00am 100 ml zoledronic acid 0.05 mg/ml injection (2 sources) Bisphosphonate Start: 06-15-2023 Zoledronic Nuha-Dtbywbwv-Kmnbk Active 1 EACH .Route ONCE June 15, 2023 9:29am infuse over 20 minutes Start: 01-07-2022 Zoledronic Aci c-Dbdkjuyr-Totzo Active 1 EACH .Route ONCE January 07, 2022 12:00am infuse over 20 minutes Completed/Discontinued Medications Medication Drug Class(es) Dates Sig (Normalized) Sig (Original) [id number] 200 actuat albuterol 0.09 mg/actuat metered dose inhaler (9 sources) beta2-Adrenergic Agonist Start: 10-17-2013 End: 11-04-2013 Albuterol Sulfate (Ventolin Hfa) 18 GM Hfa.Aer.Ad Discontinued 18 GM IH NEEDED October 17, 2013 12:00am November 04, 2013 11:12am amLODIPine 2.5 mg oral tablet (20 sources) Dihydropyridine Calcium Channel Lillian Start: 02-24-2022 End: 08-11-2022 take 2.5 mg by mouth once daily Amlodipine Discontinued 2.5 MG PO DAILY February 24, 2022 1:00am August 11, 2022 1:28pm Start: 08-14-2021 End: 08-14-2021 take 2.5 mg by mouth once daily Amlodipine Discontinued 2.5 MG PO DAILY August 14, 2021 12:00am August 14, 2021 1:45pm Start: 06-22-2019 End: 10-08-2019 take 2.5 mg by mouth once daily Amlodipine Discontinued 2.5 MG PO DAILY September 27, 2019 4:55pm October 08, 2019 9:14pm blood pressure Start: 06-15-2019 End: 06-22-2019 take 5 mg by mouth once daily Amlodipine Discontinued 5 MG PO DAILY 90 June 15, 2019 12:00am June 22, 2019 10:53am Start: 05-12-2019 End: 06-15-2019 take 5 mg by mouth once daily Amlodipine Discontinued 5 MG PO daily 0 May 12, 2019 10:46am June 15, 2019 1:57pm Start: 05-14-2016 End: 05-12-2019 take 2.5 mg by mouth once daily Amlodipine Discontinued 2.5 MG PO daily February 27, 2018 11:19am May 08, 2019 12:46pm Start: 10-17-2013 End: 11-04-2013 take 2.5 mg by mouth once daily Amlodipine Discontinued 2.5 MG PO DAILY October 17, 2013 12:00am November 04, 2013 11:13am Antiarthritic Combination No .2 (Glucosamine-Chondroitin) 900 MG tablet (9 sources) Start: 10-17-2013 End: 11-04-2013 take 1 tablet by mouth once daily Antiarthritic Combination No.2 (Glucosamine-Chondroitin) 900 MG tablet Discontinued 900 MG PO DAILY October 16, 2013 11:00pm November 04, 2013 10:13am Start: 10-17-2013 End: 11-04-2013 take 1 tablet by mouth once daily Antiarthritic Combination No.2 (Glucosamine-Chondroitin) 900 MG tablet Discontinued 900 MG PO DAILY October 17, 2013 12:00am November 04, 2013 11:13am aspirin 81 mg delayed release oral tablet (14 sources) Platelet Aggregation Inhibitor, Nonsteroidal Anti-inflammatory Drug Start: 09-09-2022 End: 01-06-2023 Aspirin (Adult Low Dose Aspirin) 81 mg tablet,delayed release (DR/EC) Discontinued 81 MG PO DAILY September 09, 2022 12:00am January 06, 2023 9:15am Start: 08-13-2021 take 1 tablet by aayush th once daily Aspirin (Adult Aspirin Regimen) 81 mg tablet,delayed release (DR/EC) Active 81 MG PO daily August 13, 2021 12:00am Start: 12-07-2016 End: 2017 take 81 mg by mouth once daily Aspirin Discontinued 81 MG PO DAILY@0800 December 07, 2016 12:00am 2017 11:32am bisacodyl 5 mg delayed release oral tablet (9 sources) Stimulant Laxative Start: 12-17-2016 End: 2017 take 10 mg by mouth once daily Bisacodyl Discontinued 10 MG PO DAILY December 17, 2016 12:00am 2017 11:32am calcium carbonate 500 mg chewable tablet (9 sources) Start: 05-14-2016 End: 12-04-2016 take 500 mg by mouth once daily Calcium Carbonate Discontinued 500 MG PO DAILY@0800 May 14, 2016 1:00am December 04, 2016 6:19am carvedilol 25 mg oral tablet (20 sources) alpha-Adrenergic Lillian, beta-Adrenergic Lillian Start: 10-17-2013 End: 09-11-2021 take 25 mg by mouth twice daily Carvedilol Discontinued 25 MG PO TWICE A DAY 180 July 28, 2020 1:58pm September 11, 2021 8:23am ciprofloxacin 500 mg oral tablet (18 sources) Quinolone Antimicrobial Start: 05-12-2019 End: 06-22-2019 take 500 mg by mouth twice daily Ciprofloxacin Hcl Discontinued 500 MG PO TWICE A DAY May 12, 2019 1:00am June 22, 2019 10:17am Start: 08-08-2017 End: 12-20-2017 take 500 mg by mouth twice daily Ciprofloxacin Hcl Discontinued 500 MG PO TWICE A DAY August 08, 2017 12:00am December 20, 2017 10:28am Emollient Combination No.72 (Eucerin Intensive Repair) 1 APPLIC lotion (9 sources) Start: 10-08-2019 End: 08-13-2021 Emollient Combination No.72 (Eucerin Intensive Repair) 1 APPLIC lotion Discontinued 1 APPLIC TOPICAL BID@0800,2199October 07, 2019 11:00pm August 13, 2021 10:14am Start: 10-08-2019 End: 08-13-2021 Emollient Combination No.72 (Eucerin Intensive Repair) 1 APPLIC lotion Discontinued 1 APPLIC TOPICAL BID@0800,0 October 08, 2019 12:00am August 13, 2021 11:14am 0.3 ml enoxaparin sodium 100 mg/ml prefilled syringe (9 sources) Low Molecular Weight Heparin Start: 10-24-2013 End: 11-04-2013 Enoxaparin Discontinued 30 MG SC DAILY@0600 1 October 24, 2013 12:00am November 04, 2013 11:13am ferrous gluconate 324 mg oral tablet (9 sources) Start: 12-07-2016 End: 12-20-2017 take 325 mg by mouth twice daily at mealtime Ferrous Gluconate Discontinued 325 MG PO TWICE DAILY WITH MEALS December 07, 2016 12:00am December 20, 2017 10:27am hydroCHLOROthiazide 25 mg oral tablet (20 sources) Thiazide Diuretic Start: 07-10-2019 End: 09-26-2019 take 12.5 mg by mouth once daily Hydrochlorothiazide Discontinued 12.5 MG PO DAILY September 24, 2019 3:21am September 26, 2019 11:52am Start: 06-22-2019 End: 07-10-2019 take 25 mg by mouth once daily Hydrochlorothiazide Discontinued 25 MG PO DAILY June 22, 2019 12:00am July 10, 2019 4:28pm lisinopril 20 mg oral tablet (20 sources) Angiotensin Converting Enzyme Inhibitor Start: 02-28-2020 End: 08-11-2022 take 20 mg by mouth once daily Lisinopril Discontinued 20 MG PO DAILY December 28, 2021 9:03am February 20, 2022 5:55pm Start: 10-25-2019 End: 02-28-2020 take 20 mg by mouth once daily Lisinopril Discontinued 20 MG PO DAILY October 25, 2019 4:05pm February 28, 2020 10:10am Start: 03-05-2019 End: 10-25-2019 take 40 mg by mouth once daily Lisinopril Discontinued 40 MG PO DAILY March 05, 2019 3:02pm May 08, 2019 12:46pm Start: 2017 End: 02-22-2019 take 40 mg by mouth once daily Lisinopril Discontinued 40 MG PO DAILY February 27, 2018 11:20am February 22, 2019 1:08am Start: 10-17-2013 End: 2017 take 40 mg by mouth once daily Lisinopril Discontinued 40 MG PO DAILY October 17, 2013 12:00am 2017 11:31am meclizine hydrochloride 12.5 mg oral tablet (11 sources) Antiemetic Start: 09-27-2019 End: 10-08-2019 take 12.5 mg by mouth twice daily as needed Meclizine Discontinued 12.5 MG PO TWICE DAILY NEEDED September 27, 2019 12:00am October 08, 2019 9:15pm menthol 0.0044 mg/mg / zinc oxide 0.206 mg/mg topical ointment (9 sources) Start: 10-08-2019 End: 08-13-2021 Menthol-Zinc Oxide Discontinued 1 APPLIC TOPICAL BID@0800,2200 October 08, 2019 12:00am August 13, 2021 11:15am metroNIDAZOLE 500 mg oral tablet (18 sources) Nitroimidazole Antimicrobial Start: 05-12-2019 End: 06-22-2019 take 500 mg by mouth three times daily Metronidazole Discontinued 500 MG PO THREE TIMES A DAY May 12, 2019 1:00am June 22, 2019 10:20am Start: 08-08-2017 End: 12-20-2017 take 500 mg by mouth every eight hours Metronidazole Discontinued 500 MG PO Q8H August 08, 2017 12:00am December 20, 2017 10:27am Multivitamin preparation (9 sources) Start: 03-24-2020 End: 01-06-2023 take 1 tablet by mouth once daily Multivitamin Discontinued 1 TABLET PO DAILY March 24, 2020 12:00am January 06, 2023 8:17am Start: 03-24-2020 End: 01-06-2023 take 1 tablet by mouth once daily Multivitamin Discontinued 1 TABLET PO DAILY March 24, 2020 1:00am January 06, 2023 9:17am Start: 03-24-2020 take 1 tablet by aayush th once daily Multivitamin Active 1 TABLET PO DAILY March 24, 2020 12:00am Start: 03-24-2020 take 1 tablet by aayush th once daily Multivitamin Active 1 TABLET PO DAILY March 24, 2020 1:00am microencapsulated potassium chloride 20 meq extended release oral tablet (9 sources) Start: 12-17-2016 End: 2017 take 20 mEq by mouth once daily at mealtime Potassium Chloride Discontinued 20 MEQ PO DAILY WITH MEALS December 17, 2016 12:00am 2017 11:31am rivaroxaban 10 mg oral tablet (9 sources) Factor Xa Inhibitor Start: 12-07-2016 End: 2017 take 10 mg by mouth once daily Rivaroxaban Discontinued 10 MG PO DAILY@0600 December 07, 2016 12:00am 2017 11:30am 28 actuat teriparatide 0.02 mg/actuat pen injector (18 sources) Parathyroid Hormone Analog Start: 04-03-2019 End: 10-25-2019 Teriparatide Discontinued 20 MCG SC DAILY May 08, 2019 12:46pm October 25, 2019 3:57pm Problems Active Problems Problem Classification Problem Date Documented Da te Episodic/Chronic Cardiac dysrhythmias (9 sources) Kelly rhythm disorder; Translations: [Other specified cardiac arrhythmias] 05-08-2019 Chronic Cardiac dysrhythmias (9 sources) Palpitations; Translations: [Palpitations] 12-16-2017 Episodic Conditions associated with dizziness or vertigo (20 sources) Benign paroxysmal positional vertigo; Translations: [Benign paroxysmal vertigo, unspecified ear] 09-27-2019 Episodic Deficiency and other anemia (9 sources) Iron deficiency anemia; Translations: [Iron deficiency anemia, unspecified] 05-08-2019 Episodic Deficiency and other anemia (9 sources) Anemia; Translations: [Anemia, unspecified] 05-08-2019 Episodic Diabetes mellitus with complications (1 source) Type 2 diabetes mellitus with diabetic peripheral angiopathy without gangrene; Translations: [Diabetes with peripheral circulatory disorders, type II or unspecified type, not stated as uncontrolled] 06-15-2023 Chronic Diabetes mellitus without complication (20 sources) Diabetes mellitus; Translations: [Type 2 diabetes mellitus without complications] 01-20-2022 Chronic Disorders of lipid metabolism (18 sources) Hyperlipidemia; Translations: [Hyperlipidemia, unspecified] 03-24-2020 Chronic E Codes: Fall (20 sources) Fall; Translations: [Unspecified fall, initial encounter] 09-27-2019 Episodic Essential hypertension (20 sources) Essential hypertension; Translations: [Essential (primary) hypertension] Onset: 01-11-2024 05-08-2019 Chronic Fluid and electrolyte disorders (11 sources) Hypokalemia; Translations: [Hypokalemia] Episodic Fracture of neck of femur (hip) (9 sources) Fracture of bone of hip region; Translations: [Fracture of unspecified part of neck of right femur, initial encounter for closed fracture] 05-08-2019 Episodic Immunizations and screening for infectious disease (10 sources) Patient encounter status; Translations: [Encounter for screening for COVID-19] Episodic Malaise and fatigue (12 sources) Asthenia; Translations: [Other malaise] Episodic Neoplasms of unspecified nature or uncertain behavior (1 source) Monoclonal gammopathy; Translations: [Monoclonal gammopathy] Onset: 03-27-2024 Chronic Nonspecific chest pain (9 sources) Chest pain; Translations: [Other chest pain] 12-16-2017 Episodic Nutritional deficiencies (9 sources) Cobalamin deficiency; Translations: [Deficiency of other specified B group vitamins] 09-27-2019 Episodic Osteoarthritis (9 sources) Osteoarthritis; Translations: [Unspecified osteoarthritis, unspecified site] 06-22-2019 Chronic Osteoporosis (16 sources) Osteoporosis; Translations: [Age-related osteoporosis without current pathological fracture] Onset: 07-11-2023 Chronic Other acquired deformities (3 sources) Degenerative spondylolisthesis; Translations: [Spondylolisthesis, site unspecified] 08-11-2022 Episodic Other and ill-defined cerebrovascular disease (3 sources) Cerebrovascular disease; Translations: [Cerebrovascular disease, unspecified] 01-06-2023 Chronic Other and ill-defined cerebrovascular disease (1 source) Cerebrovascular disease, unspecified; Translations: [Unspecified cerebrovascular disease] 01-06-2023 Chronic Other bone disease and musculoskeletal deformities (20 sources) Segmental and somatic dysfunction; Translations: [Segmental and somatic dysfunction of lumbar region] 12-29-2020 Episodic Other circulatory disease (9 sources) Orthostatic hypotension; Translations: [Orthostatic hypotension] 09-27-2019 Episodic Other connective tissue disease (9 sources) Spasm; Translations: [Other muscle spasm] 05-08-2019 Episodic Other connective tissue disease (9 sources) History of lumbar fusion; Translations: [Arthrodesis status] 01-12-2021 Episodic Other gastrointestinal disorders (2 sources) Dysphagia; Translations: [Dysphagia, unspecified] 04-26-2023 Episodic Other liver diseases (8 sources) Enzyme level - finding; Translations: [Elevated transaminase measurement] Episodic Other lower respiratory disease (10 sources) Cough; Translations: [Acute cough] Episodic Other nervous system disorders (7 sources) Unable to walk; Translations: [Difficulty in walking, not elsewhere classified] 03-05-2022 Chronic Other nervous system disorders (3 sources) Difficulty in walking, not elsewhere classified; Translations: [Difficulty in walking] Chronic Other nervous system disorders (3 sources) Polyneuropathy; Translations: [Polyneuropathy, unspecified] 01-06-2023 Chronic Other nervous system disorders (3 sources) Polyneuropathy, unspecified; Translations: [Unspecified hereditary and idiopathic peripheral neuropathy] Onset: 09-23-2023 05-03-2023 Chronic Other nutritional; endocrine; and metabolic disorders (9 sources) Hypercalcemia; Translations: [Hypercalcemia] 01-01-2022 Chronic Other upper respiratory infections (10 sources) Acute pharyngitis; Translations: [Acute pharyngitis, unspecified] Episodic Otitis media and related conditions (10 sources) Serous otitis media; Translations: [Unspecified nonsuppurative otitis media, right ear] Episodic Parkinson`s disease (1 source) Parkinson`s disease; Translations: [Parkinson's disease without dyskinesia, without mention of fluctuations] Onset: 09-08-2023 Residual codes; unclassified (9 sources) Finding of systemic arterial pressure; Translations: [Other general symptoms and signs] 08-13-2021 Episodic Spondylosis; intervertebral disc disorders; other back problems (20 sources) Spinal stenosis of lumbar region; Translations: [Spinal stenosis, lumbar region without neurogenic claudication] 12-29-2020 Episodic Superficial injury; contusion (7 sources) Contusion of pelvic region; Translations: [Contusion of lower back and pelvis, initial encounter] 01-28-2022 Episodic Thyroid disorders (20 sources) Hypothyroidism; Translations: [Hypothyroidism, unspecified] Chronic Unclassified (1 source) Parkinson's disease; Translations: [Primary Parkinson's disease] 01-06-2023 Chronic Unclassified (1 source) Low back pain, unspecified; Translations: [Low back pain, unspecified] Onset: 09-08-2023 Past or Other Problems Problem Classification Problem Date Documented Da te Episodic/Chronic Open wounds of head; neck; and trunk (1 source) Laceration without foreign body of unspecified part of head, initial encounter; Translations: [Laceration without foreign body of unspecified part of head, initial encounter] Onset: 11-28-2023 Episodic Other acquired deformities (1 source) Spondylolisthesis, site unspecified; Translations: [Spondylolisthesis, site unspecified] Onset: 09-08-2023 Episodic Other aftercare (1 source) Other chcf (current) drug therapy; Translations: [Other extermination supervisor (current) drug therapy] Onset: 09-30-2023 Episodic Other aftercare (1 source) emt intermediate (current) use of bisphosphonates; Translations: [emt intermediate (current) use of bisphosphonates] Onset: 09-30-2023 Episodic Other connective tissue disease (1 source) Myalgia, unspecified site; Translations: [Myalgia, unspecified site] Onset: 09-08-2023 Episodic Results Test Name Value Interpretation Reference Range Facility Endocrinology Visit Reporton 06-19-2024 Endocrinology Visit Report [facility] [address] [place] [address] OFFICE VISIT Date of Service: 06/19/24 MR#: [id number] Acct: [id number] Name: MARGARITADELFINA JOSE Rep #: [id number] : 1935 Provider: Imelda Vidal Age/Sex: 89/F [place] [facility] Status: Signed Intake Vital Signs 06/15/23 08:56 03/27/24 09:15 06/19/24 10:21 Height 5 ft 4 in 5 ft 2 in 5 ft 2 in Weight: 131 lb BMI 23.9 BP 135/82 H Blood Pressure Location Rt brachial Position Sitting Pulse 63 Pulse Source Monitor Pulse Oximetry (%) 96 Oxygen Delivery Method room air Comment weight is per pt's scale Intake Visit Reasons: 1 Y FU Chief Complaint: Osteoporosis/thyroid Is patient in pain?: No Allergies amoxicillin Allergy (Unknown, Verified 06/19/24 10:26) Unknown Anesthetics - Amide Type - Select A (Anesthetics - Amide Type) Allergy (Verified 06/19/24 10:26) Unknown Anesthetics - Lizzette Type- Parabens (Anesthetics - Lizzette Type) Allergy (Verified 06/19/24 10:26) Unknown Bewmucx-VEI-ScO Reductase Inhibitor (Icwhzvo-Xwh-Gwa Reductase Inhibitor) Adverse Reaction (Severe, Verified 06/19/24 10:26) Myalgia Medications ???Medication ???Instructions ???Recorded ???Confirmed ???Type ezetimibe 10 mg tablet (Zetia) 10 mg PO DAILY cholesterol 8 06/19/24 History tramadol 50 mg tablet 50 mg PO BID pain 05/08/19 5 History cholecalciferol (vitamin D3) 50 2,000 unit PO DAILY supplement 06/19/24 History mcg (2,000 unit) tablet carvedilol 25 mg tablet 25 mg PO BID BP #180 tabs 09/11/21 06/19/24 Rx mecobalamin (vitamin B12) 500 mcg mcg PO 09/09/22 06/19/24 History chewable tablet hjmfmrgp-bhzg-wlunf acid 120 tab PO DAILY 01/06/23 06/19/24 His tory mcg-herb no.293 37.5 mg chewable tablet (Alive Women's Gummy Vitamin) zoledronic acid 5 mg/100 mL in 1 ea .Route ONCE #100 mL 06/15/23 06/19/24 Rx mannitol 5 %-water intravenous piggybck carbidopa 25 mg-levodopa 100 mg See Rx Instructions .Route 4 06/19/24 Rx tablet (Sinemet) .COMPLEX #180 tabs docusate sodium 100 mg capsule 100 mg PO BID pain 09/08/23 History (Dulcolax Stool Softener (docusate)) ibuprofen 400 mg tablet 400 mg PO DAILY PRN 09/08/2306/19 History losartan 50 mg tablet 50 mg PO QDAY #30 tabs 02/28/24 Rx levothyroxine 100 mcg tablet 100 mcg PO QDAY #90 tabs 06/19/24 06/19/24 Rx lisinopril 20 mg tablet 20 mg PO QDAY 06/19/24 06/19/24 Hi story Have you fallen in the past year?: No PFSH Medical History Parkinsons disease Transaminitis Inability to walk Hypercalcemia Debility Colitis Back pain Old anterior wall myocardial infarction Osteoarthritis Asthma Essential (primary) hypertension Controlled diabetes mellitus with peripheral circulatory disorder HLD (hyperlipidemia) Palpitations Other chest pain Takotsubo cardiomyopathy Surgical History History of left hip replacement History of right hip replacement ( 2016) History of fractured pelvis ( 2013) History of dilation and curettage ( 1994) History of back surgery ( 2016) History of left heart catheterization (LHC) (03/2010) History of cholecystectomy ( 2005) History of tonsillectomy Family History Father , age 83 Colon cancer Mother , age 90 CHF (congestive heart failure) Brother , age 68 Diabetes Sister CVA (cerebral vascular accident) Daughter Hypertension Daughter Thyroid disorder Social History household members: none housing: house Smoking Status: Former smoker how long ago did patient quit smokin alcohol intake: never substance use type: does not use caffeine: No do you feel safe at home: Yes HPI HPI Chief Complaint: Osteoporosis/thyroid Details: DELFINA AVILA, is a 89 F who presents to the office today for follow up. She has osteoporosis. She was briefly on Prolia. She has had 2 infusions of Reclast. She reports that she feels achy after taking Reclast. She is residing at [facility]. She doesn't want to take bone medication any longer. She is careful not to fall. She has hypothyroidism. She is taking levothyroxine 112 mcg. Her last TSH was 0.103 Newest guidelines is for TSH to between 4-6 for the elderly. ROS Const Constitutional: No fatigue or weight change ENT ENT: Positive for dizziness/vertigo Cardio Cardiology: No chest pain at rest, chest pain with exertion, shortness of breath or palpitations Skin Skin: No wounds Endo Endocrine: No fa (more content not included)... Normal [facility] KEON + Protein Elect, Serumon 2024 Albumin [Mass/Vol] 4.0 g/dL Normal 2.9-4.4 [facility] Comment on above: Order Comment: NABEEL OWN Performed By: #### L 500.4050, L100.0100, L100.9950, L101.9900, L3130.0010, L501.6710, L504.2610, L3100.3425 ####[facility] [address] [place], [address] Albumin/Globulin [Mass ratio] 1.3 {ratio} Normal 0.7-1.7 [facility] Comment on above: Order Comment: NUNKN OWN Performed By: #### L 500.4050, L100.0100, L100.9950, L101.9900, L3130.0010, L501.6710, L504.2610, L3100.3425 ####[facility] [address] [place], [address] ZTZBT-7-AANB 0.3 g/dL Normal 0.0-0.4 [facility] Comment on above: Order Comment: NUNKN OWN Performed By: #### L 500.4050, L100.0100, L100.9950, L101.9900, L3130.0010, L501.6710, L504.2610, L3100.3425 ####[facility] [address] [place], [address] RRDBD-7-LWUN 0.8 g/dL Normal 0.4-1.0 [facility] Comment on above: Order Comment: NUNKN OWN Performed By: #### L 500.4050, L100.0100, L100.9950, L101.9900, L3130.0010, L501.6710, L504.2610, L3100.3425 ####[facility] [address] [place], [address] BETA GLOBULIN 1.0 g/dL Normal 0.7-1.3 [facility] Comment on above: Order Comment: NUNKN OWN Performed By: #### L 500.4050, L100.0100, L100.9950, L101.9900, L3130.0010, L501.6710, L504.2610, L3100.3425 ####[facility] [address] [place], [address] GAMMA GLOBULIN 1.1 g/dL Normal 0.4-1.8 [facility] Comment on above: Order Comment: NUNKN OWN Performed By: #### L 500.4050, L100.0100, L100.9950, L101.9900, L3130.0010, L501.6710, L504.2610, L3100.3425 ####[facility] [address] [place], [place], [phone] Globulin (S) [Mass/Vol] 3.2 g/dL Normal 2.2-3.9 [facility] Comment on above: Order Comment: NUNKN OWN Performed By: #### L 500.4050, L100.0100, L100.9950, L101.9900, L3130.0010, L501.6710, L504.2610, L3100.3425 ####[facility] [address] [place], [place], [phone] KEON RESULT,S Comment Abnormal . [facility] Comment on above: Order Comment: NUNKN OWN Result Comment: Immu nofixation shows IgG monoclonal protein with lambda light chain specificity. Performed By: #### L 500.4050, L100.0100, L100.9950, L101.9900, L3130.0010, L501.6710, L504.2610, L3100.3425 ####[facility] [address] [place], [place], [phone]) IMMUNOGLOB A QN 274 mg/dL Normal 64-422 [facility] Comment on above: Order Comment: NUNKN OWN Performed By: #### L 500.4050, L100.0100, L100.9950, L101.9900, L3130.0010, L501.6710, L504.2610, L3100.3425 ####[facility] [address] [place], [place], [phone]) IMMUNOGLOB G QN 1170 mg/dL Normal 586-1602 [facility] Comment on above: Order Comment: NUNKN OWN Performed By: #### L 500.4050, L100.0100, L100.9950, L101.9900, L3130.0010, L501.6710, L504.2610, L3100.3425 ####[facility] [address] [place], [place], [phone]) IMMUNOGLOB M QN 23 mg/dL Low 26-217 [facility] Comment on above: Order Comment: NUNKN OWN Result Comment: Resu lt confirmed on concentration. Performed By: #### L 500.4050, L100.0100, L100.9950, L101.9900, L3130.0010, L501.6710, L504.2610, L3100.3425 ####[facility] [address] [place], [place], [phone] M-Juan 0.2 g/dL Abnormal Not Observed [facility] Comment on above: Order Comment: NUNKN OWN Performed By: #### L 500.4050, L100.0100, L100.9950, L101.9900, L3130.0010, L501.6710, L504.2610, L3100.3425 ####[facility] [address] [place], [place], [phone] NOTE: Comment Normal . [facility] Comment on above: Order Comment: NUNKN OWN Result Comment: Prot ein electrophoresis scan will follow via computer, mail, or controls operator molded goods delivery. Performed By: #### L 500.4050, L100.0100, L100.9950, L101.9900, L3130.0010, L501.6710, L504.2610, L3100.3425 ####[facility] [address] [place], [place], [phone] Protein [Mass/Vol] 7.2 g/dL Normal 6.0-8.5 [facility] [place] Comment on above: Order Comment: NUNKN OWN Performed By: #### L 500.4050, L100.0100, L100.9950, L101.9900, L3130.0010, L501.6710, L504.2610, L3100.3425 ####[facility] [address] [place], [place], [phone] Lambda Light Chainson 2024 FR KAPPA LT CHN 33.7 mg/L Abnormal 3.3-19.4 [facility] Comment on above: Order Comment: CHRISTIANNEULOGIO OWN Performed By: #### L 500.4050, L100.0100, L100.9950, L101.9900, L3130.0010, L501.6710, L504.2610, L3100.3425 ####[facility] [address] [place], [place], [phone] FR LAMBDA LT CH 17.3 mg/L Normal 5.7-26.3 [facility] Comment on above: Order Comment: NABEEL OWN Performed By: #### L 500.4050, L100.0100, L100.9950, L101.9900, L3130.0010, L501.6710, L504.2610, L3100.3425 ####[facility] [address] [place], [place], [phone] KAPPA/LAMBDA % 1.95 Abnormal 0.26-1.65 [facility] Comment on above: Order Comment: NUNEULOGIO OWN Result Comment: Perf ormed at: - [facility] [id number] Rotating Field Assembler: Gray Mcallister PhD, Phone: [phone] Performed By: #### L 500.4050, L100.0100, L100.9950, L101.9900, L3130.0010, L501.6710, L504.2610, L3100.3425 ####[facility] [address] [place], [place], [phone] CBC W/Diff, Automatedon 03-14 Absolute Lymph 1.65 X10 3/uL Normal 0.83-4.51 [facility] Comment on above: Performed By: #### L 500.4050, L100.0100, L100.9950, L101.9900, L3130.0010, L501.6710, L504.2610, L3100.3425 ####[facility] [address] [place], [address] Absolute Neut 4.5 X10 3/uL Normal 2.0-7.7 [facility] Comment on above: Performed By: #### L 500.4050, L100.0100, L100.9950, L101.9900, L3130.0010, L501.6710, L504.2610, L3100.3425 ####[facility] [address] [place], [address] Basophils/100 WBC (Bld) 0.7 % Normal 0-1 [facility] Comment on above: Performed By: #### L 500.4050, L100.0100, L100.9950, L101.9900, L3130.0010, L501.6710, L504.2610, L3100.3425 ####[facility] [address] [place], [address] Eosinophils/100 WBC (Bld) 0.9 % Normal 0-5 [facility] Comment on above: Performed By: #### L 500.4050, L100.0100, L100.9950, L101.9900, L3130.0010, L501.6710, L504.2610, L3100.3425 ####[facility] [address] [place], [address] Erythrocyte distribution width (RBC) [Ratio] 13.4 % Normal 11.6-14.6 [facility] Comment on above: Performed By: #### L 500.4050, L100.0100, L100.9950, L101.9900, L3130.0010, L501.6710, L504.2610, L3100.3425 ####[facility] [address] [place], [address] Hematocrit (Bld) [Volume fraction] 42.1 % Normal 37-47 [facility] Comment on above: Performed By: #### L 500.4050, L100.0100, L100.9950, L101.9900, L3130.0010, L501.6710, L504.2610, L3100.3425 ####[facility] [address] [place], [address] Hemoglobin (Bld) [Mass/Vol] 13.4 g/dL Normal 12.0-15.0 [facility] Comment on above: Performed By: #### L 500.4050, L100.0100, L100.9950, L101.9900, L3130.0010, L501.6710, L504.2610, L3100.3425 ####[facility] [address] [place], [address] IG% 0.300 Normal 0.0-0.9 [facility] Comment on above: Result Comment: IG% - Immature Granulocytes (promyelocytes, myelocytes and metamyelocytes) > 1% indicates that a LEFT SHIFT is Present. Performed By: #### L 500.4050, L100.0100, L100.9950, L101.9900, L3130.0010, L501.6710, L504.2610, L3100.3425 ####[facility] [address] [place], [address] Lymphocytes/100 WBC (Bld) 24.3 % Normal 19-41 [facility] Comment on above: Performed By: #### L 500.4050, L100.0100, L100.9950, L101.9900, L3130.0010, L501.6710, L504.2610, L3100.3425 ####[facility] [address] [place], [address] MCH (RBC) [Entitic mass] 28.5 pg Normal 27.0-32.0 [facility] Comment on above: Performed By: #### L 500.4050, L100.0100, L100.9950, L101.9900, L3130.0010, L501.6710, L504.2610, L3100.3425 ####[facility] [address] [place], [address] MCHC (RBC) [Mass/Vol] 31.8 g/dL Low 32-36 [facility] Comment on above: Performed By: #### L 500.4050, L100.0100, L100.9950, L101.9900, L3130.0010, L501.6710, L504.2610, L3100.3425 ####[facility] [address] [place], [address] MCV (RBC) [Entitic vol] 89.4 fL Normal 81-99 [facility] Comment on above: Performed By: #### L 500.4050, L100.0100, L100.9950, L101.9900, L3130.0010, L501.6710, L504.2610, L3100.3425 ####[facility] [address] [place], [address] Monocytes/100 WBC (Bld) 7.7 % Normal 0-10 [facility] Comment on above: Performed By: #### L 500.4050, L100.0100, L100.9950, L101.9900, L3130.0010, L501.6710, L504.2610, L3100.3425 ####[facility] [address] [place], [address] Neutrophils/100 WBC (Bld) 66.1 % Normal 47-70 [facility] Comment on above: Performed By: #### L 500.4050, L100.0100, L100.9950, L101.9900, L3130.0010, L501.6710, L504.2610, L3100.3425 ####[facility] [address] [place], [address] Nucleated RBC (Bld) [#/Vol] 0 10*3/uL Normal 0-5 [facility] Comment on above: Performed By: #### L 500.4050, L100.0100, L100.9950, L101.9900, L3130.0010, L501.6710, L504.2610, L3100.3425 ####[facility] [address] [place], [address] Platelet mean volume (Bld) [Entitic vol] 8.9 fL Normal 6.2-12.0 [facility] Comment on above: Performed By: #### L 500.4050, L100.0100, L100.9950, L101.9900, L3130.0010, L501.6710, L504.2610, L3100.3425 ####[facility] [address] [place], [address] Platelets (Bld) [#/Vol] 326 10*3/uL Normal 150-450 [facility] Comment on above: Performed By: #### L 500.4050, L100.0100, L100.9950, L101.9900, L3130.0010, L501.6710, L504.2610, L3100.3425 ####[facility] [address] [place], [address] RBC (Bld) [#/Vol] 4.71 10*6/uL Normal 4.2-5.4 [facility] Comment on above: Performed By: #### L 500.4050, L100.0100, L100.9950, L101.9900, L3130.0010, L501.6710, L504.2610, L3100.3425 ####[facility] [address] [place], [place], [id number] RDW SD 43.9 fl Normal 35.1-43.9 [facility] Comment on above: Performed By: #### L 500.4050, L100.0100, L100.9950, L101.9900, L3130.0010, L501.6710, L504.2610, L3100.3425 ####[facility] [address] [place], [address] WBC (Bld) [#/Vol] 6.8 10*3/uL Normal 4.4-11.0 [facility] Comment on above: Performed By: #### L 500.4050, L100.0100, L100.9950, L101.9900, L3130.0010, L501.6710, L504.2610, L3100.3425 ####[facility] [address] [place], [address] CRPon 03-27-2024 C-REACTIVE PROT < 2.90 Normal 0.0-3.0 [facility] Comment on above: Order Comment: UNKNO WN1 Result Comment: C-Re active Protein (CRP) provides useful information for the diagnosis, therapy and monitoring of inflammatory processes and associated diseases. For the evaluation of Relative Risk for Cardiovascular Disease, a High Sensitivity CRP (HSCRP) should be ordered. Performed By: #### L 500.4050, L100.0100, L100.9950, L101.9900, L3130.0010, L501.6710, L504.2610, L3100.3425 ####[facility] [address] [place], [address] Comprehensive Metabolic Prof ilon 03-27-2024 Albumin [Mass/Vol] 3.7 g/dL Normal 3.2-5.0 [facility] Comment on above: Order Comment: UNKNO WN1 Performed By: #### L 500.4050, L100.0100, L100.9950, L101.9900, L3130.0010, L501.6710, L504.2610, L3100.3425 ####[facility] [address] [place], [address] Albumin/Globulin [Mass ratio] 1.0 {ratio} Normal 0.9-2.4 [facility] Comment on above: Order Comment: UNKNO WN1 Performed By: #### L 500.4050, L100.0100, L100.9950, L101.9900, L3130.0010, L501.6710, L504.2610, L3100.3425 ####[facility] [address] [place], [place], [phone] ALK P 59 U/L Normal 45-117 [facility] Comment on above: Order Comment: UNKNO WN1 Performed By: #### L 500.4050, L100.0100, L100.9950, L101.9900, L3130.0010, L501.6710, L504.2610, L3100.3425 ####[facility] [address] [place], [place], [phone] ALT [Catalytic activity/Vol] 11 U/L Low 13-56 [facility] Comment on above: Order Comment: UNKNO WN1 Performed By: #### L 500.4050, L100.0100, L100.9950, L101.9900, L3130.0010, L501.6710, L504.2610, L3100.3425 ####[facility] [address] [place], [place], [phone] AST [Catalytic activity/Vol] 19 U/L Normal 15-37 [facility] Comment on above: Order Comment: UNKNO WN1 Performed By: #### L 500.4050, L100.0100, L100.9950, L101.9900, L3130.0010, L501.6710, L504.2610, L3100.3425 ####[facility] [address] [place], [address] Bilirubin [Mass/Vol] 0.80 mg/dL Normal 0.20-1.00 [facility] Comment on above: Order Comment: UNKNO WN1 Result Comment: For patients on eltrombopag therapy, use of Dimension [place] TBIL is not recommended. Performed By: #### L 500.4050, L100.0100, L100.9950, L101.9900, L3130.0010, L501.6710, L504.2610, L3100.3425 ####[facility] [address] [place], [address] BUN/CRE 21.2 RATIO High 10-20 [facility] Comment on above: Order Comment: UNKNO WN1 Performed By: #### L 500.4050, L100.0100, L100.9950, L101.9900, L3130.0010, L501.6710, L504.2610, L3100.3425 ####[facility] [address] [place], [address] CA,Total 9.9 mg/dL Normal 8.5-10.1 [facility] Comment on above: Order Comment: UNKNO WN1 Performed By: #### L 500.4050, L100.0100, L100.9950, L101.9900, L3130.0010, L501.6710, L504.2610, L3100.3425 ####[facility] [address] [place], [address] Chloride [Moles/Vol] 105 mmol/L Normal 98-107 [facility] Comment on above: Order Comment: UNKNO WN1 Performed By: #### L 500.4050, L100.0100, L100.9950, L101.9900, L3130.0010, L501.6710, L504.2610, L3100.3425 ####[facility] [address] [place], [address] CO2 [Moles/Vol] 30.0 mmol/L Normal 21.0-32.0 [facility] Comment on above: Order Comment: UNKNO WN1 Performed By: #### L 500.4050, L100.0100, L100.9950, L101.9900, L3130.0010, L501.6710, L504.2610, L3100.3425 ####[facility] [address] [place], [address] Creatinine [Mass/Vol] 0.57 mg/dL Normal 0.55-1.02 [facility] Comment on above: Order Comment: UNKNO WN1 Result Comment: The validity of the calculated GFR GFRAA in patients over 70 years has not been determined. Clinical correlation is essential. Performed By: #### L 500.4050, L100.0100, L100.9950, L101.9900, L3130.0010, L501.6710, L504.2610, L3100.3425 ####[facility] [address] [place], [place], [id number] EST GFR - AA 130 mL/min Normal >60 [facility] Comment on above: Order Comment: UNKNO WN1 Result Comment: Afri can Armenian GFR Calc Performed By: #### L 500.4050, L100.0100, L100.9950, L101.9900, L3130.0010, L501.6710, L504.2610, L3100.3425 ####[facility] [address] [place], [address] GAP 4 Low 5-15 [facility] Comment on above: Order Comment: UNKNO WN1 Performed By: #### L 500.4050, L100.0100, L100.9950, L101.9900, L3130.0010, L501.6710, L504.2610, L3100.3425 ####[facility] [address] [place], [address] GFR/1.73 sq M.predicted among non-blacks MDRD (S/P/Bld) [Vol rate/Area] 108 mL/min/{1.73_m2} Normal >60 [facility] Comment on above: Order Comment: UNKNO WN1 Result Comment: Non- GFR Calc Performed By: #### L 500.4050, L100.0100, L100.9950, L101.9900, L3130.0010, L501.6710, L504.2610, L3100.3425 ####[facility] [address] [place], [address] Globulin (S) [Mass/Vol] 3.8 g/dL Normal 2.2-4.2 [facility] Comment on above: Order Comment: UNKNO WN1 Performed By: #### L 500.4050, L100.0100, L100.9950, L101.9900, L3130.0010, L501.6710, L504.2610, L3100.3425 ####[facility] [address] [place], [address] Glucose [Mass/Vol] 111 mg/dL High 74-106 [facility] Comment on above: Order Comment: UNKNO WN1 Result Comment: Fast ing Glucose result from 100 to 125 mg/dL suggests IMPAIRED HOMEOSTASIS per A.D.A. criteria. Performed By: #### L 500.4050, L100.0100, L100.9950, L101.9900, L3130.0010, L501.6710, L504.2610, L3100.3425 ####[facility] [address] [place], [address] Potassium [Moles/Vol] 3.9 mmol/L Normal 3.5-5.1 [facility] Comment on above: Order Comment: UNKNO WN1 Performed By: #### L 500.4050, L100.0100, L100.9950, L101.9900, L3130.0010, L501.6710, L504.2610, L3100.3425 ####[facility] [address] [place], [place], [id number] Sodium [Moles/Vol] 139 mmol/L Normal 136-145 [facility] [place] Comment on above: Order Comment: UNKNO WN1 Performed By: #### L 500.4050, L100.0100, L100.9950, L101.9900, L3130.0010, L501.6710, L504.2610, L3100.3425 ####[facility] [address] [place], [address] T PROT 7.5 g/dL Normal 6.4-8.2 [facility] Comment on above: Order Comment: UNKNO WN1 Performed By: #### L 500.4050, L100.0100, L100.9950, L101.9900, L3130.0010, L501.6710, L504.2610, L3100.3425 ####[facility] [address] [place], [place], [id number] Urea nitrogen [Mass/Vol] 12 mg/dL Normal 7-18 [facility] Comment on above: Order Comment: UNKNO WN1 Performed By: #### L 500.4050, L100.0100, L100.9950, L101.9900, L3130.0010, L501.6710, L504.2610, L3100.3425 ####[facility] [address] [place], [address] Erythrocyte Sed Rateon 03-27 SED RATE 10 mm/hr Normal 0-30 [facility] Comment on above: Performed By: #### L 500.4050, L100.0100, L100.9950, L101.9900, L3130.0010, L501.6710, L504.2610, L3100.3425 ####[facility] [address] [place], [address] LDHon 03-27-2024 LDH 203 U/L Normal 84-246 [facility] Comment on above: Order Comment: UNKNO WN1 Performed By: #### L 500.4050, L100.0100, L100.9950, L101.9900, L3130.0010, L501.6710, L504.2610, L3100.3425 ####[facility] [address] [place], [address] Oncology Visit Reporton 03-14 Oncology Visit Report [facility] [address] [facility] [place] [address] OFFICE VISIT Date of Service: 03/27/24904 MR#: [id number] Acct: [id number] Name: MARTHAESTRELLADELFINA DIMREEANATOLIY Rep #: [id number] : 1935 From: Randy Littlejohn MD Age/Sex: 88/F Location: [facility] [place] Status: Signed HPI Subjective Date of Service 03/27/24 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 She has Parkinson's disease, uses a walker to ambulate, denies pain, weight loss or night sweats. [facility] Medical History Transaminitis Inability to walk Hypercalcemia Debility Colitis Back pain Old anterior wall myocardial infarction Osteoarthritis Asthma Essential (primary) hypertension Controlled diabetes mellitus with peripheral circulatory disorder HLD (hyperlipidemia) Palpitations Other chest pain Takotsubo cardiomyopathy Surgical History History of left hip replacement History of right hip replacement ( 2016) History of fractured pelvis ( 2013) History of dilation and curettage ( 1994) History of back surgery ( 2016) History of left heart catheterization (LHC) (03/2010) History of cholecystectomy ( 2005) History of tonsillectomy Family History Father , age 83 Colon cancer Mother , age 90 CHF (congestive heart failure) Brother , age 68 Diabetes Sister CVA (cerebral vascular accident) Daughter Hypertension Daughter Thyroid disorder Social History household members: none housing: house Smoking Status: Former smoker how long ago did patient quit smokin alcohol intake: never substance use type: does not use caffeine: No do you feel safe at home: Yes ROS Constitutional Constitutional: Reports systems reviewed and no addt'l complaints, except as documented Eyes Eyes: Reports systems reviewed and no addt'l complaints, except as documented ENT HEENT: Reports systems reviewed and no addt'l complaints, except as documented Cardiovascular Cardiovascular: Reports systems reviewed and no addt'l complaints, except as documented Respiratory/Chest Respiratory/Chest: Reports systems reviewed and no addt'l complaints, except as documented Gastrointestinal Gastrointestinal: Reports systems reviewed and no addt'l complaints, except as documented Genitourinary Genitourinary: Reports systems reviewed and no addt'l complaints, except as documented Musculoskeletal Musculoskeletal: Reports systems reviewed and no addt'l complaints, except as documented Integumentary Integumentary: Reports systems reviewed and no addt'l complaints, except as documented Neurologic Neurologic: Reports systems reviewed and no addt'l complaints, except as documented Psychiatric Psychiatric: Reports systems reviewed and no addt'l complaints, except as documented Endocrine Endocrinology: Reports systems reviewed and no addt'l complaints, except as documented Hematologic/Lymphatic Hematologic/Lymphatic: Reports systems reviewed and no addt'l complaints, except as documented Allergic/Immunologic Allergic/Immunologic: Reports systems reviewed and no addt'l complaints, except as documented Intake Vital Signs 02/28/24 10:01 03/27/24 09:05 03/27/24 09:15 Height 5 ft 2 in 5 ft 2 in 5 ft 2 in Weight: 59.676 kg 59.676 kg BMI 24.0 24.0 BP 118/73 Blood Pressure Location Rt brachial Position Sitting Respiration 18 Pulse 69 Pulse Source Monitor Temp 98.3 F Temperature Source Temporal Artery Pulse Oximetry (%) 95 Oxygen Delivery Method room air Intake Is patient in pain?: Yes (back) Pain scale (1-10): 3 Allergies amoxicillin Allergy (Unknown, Verified 03/27/24 09:07) Unknown Anesthetics - Amide Type - Select A (Anesthetics - Amide Type) Allergy (Verified 03/27/24 09:07) Unknown Anesthetics - Lizzette Type- Parabens (Anesthetics - Lizzette Type) Allergy (Verified 03/27/24 09:07) Unknown Mflcwvo-TUB-FjA Reductase Inhibitor (Dtptwzq-Fyn-Zqv Reductase Inhibitor) Adverse Reaction (Severe, Verified 03/27/24 09:07) Myalgia Medications ???Medication ???Instructions ???Recorded ???Confirmed ???Type ezetimibe 10 mg tablet (Zetia) 10 mg PO DAILY cholesterol 12/15/17 03/27/24 History tramadol 50 mg tablet 50 mg PO BID pain 05/08/19 03/27/24 History cholecalciferol (vitamin D3) 50 2,000 unit PO DAILY supplement 10/25/19 03/27/24 History mcg (2,000 unit) tablet carvedilol 25 mg tablet 25 mg PO BID BP #180 tabs 09/11/21 03/27/24 Rx mecobalamin (vitamin B12) 500 mcg mcg PO 09/09/22 03/27/24 (more content not included)... Normal [facility] Retic Panelon 03-27-2024 IM RET FRACTION 1.90 Low 3.00-15.90 [facility] Comment on above: Performed By: #### L 500.4050, L100.0100, L100.9950, L101.9900, L3130.0010, L501.6710, L504.2610, L3100.3425 ####[facility] [address] [place], [place], [id number] RET-HE 31.9 pg Normal 30-35 [facility] Comment on above: Performed By: #### L 500.4050, L100.0100, L100.9950, L101.9900, L3130.0010, L501.6710, L504.2610, L3100.3425 ####[facility] [address] [place], [place], [id number] Retic Count 0.71 Normal 0.5-1.5 [facility] Comment on above: Performed By: #### L 500.4050, L100.0100, L100.9950, L101.9900, L3130.0010, L501.6710, L504.2610, L3100.3425 ####[facility] [address] [place], [address] Neurology Visit Reporton Neurology Visit Report [facility] [address], [address] [place] [address] OFFICE VISIT Date of Service: 02/28/24 MR#: [id number] Acct: [id number] Name: DELFINA AVILA Rep #: [id number] : 1935 Provider: Dr. Pollo rich MD Age/Sex: 88/F [place] [facility] [place] Status: Signed HPI HPI Chief Complaint: Details: Interim History: Delfina returns for follow-up visit. She has a history of hypertension, diet-controlled diabetes mellitus, hyperlipidemia, hypothyroidism, and Parkinson's disease. She has had a total right hip replacement and fixation of a left intertrochanteric fracture. She has had prior lumbar spine fusion at L4-5. She has had a prior T12 vertebral body compression fracture. She has had a tremor affecting both hands that began around 2019. Her tremor worsens with action. She has had some difficulty with fine motor control of her hands. She began to have some slurring of speech around 2020. She began having a slow shuffling gait around 2019. She also described having freezing episodes when walking. She has difficulty arising from a seated position and rolling in bed. Her gait difficulty had for a period of time gradually worsened. Her mobility became very limited and she required assistance to arise and takes steps. She uses a rollator. She reported having generalized weakness. She has chronic low back pain. She had a lumbar fusion performed around 2016. She now reports having some radicular type pain in the lower extremities (left greater than right). She reported having some numbness in the legs (left greater than right). She denied having neck pain. She has had falls including a fall in October 2023. Bilateral lumbar paraspinal muscle trigger point injections administered at this office earlier in 2023 were of some benefit for her low back pain. She is performing exercises and feels that her low back pain and lower extremity pain have diminished and her gait has improved. She uses a rollator. She has had some swallowing difficulty with solids and liquids; speech therapy was of benefit for her dysphagia. She has depression and anxiety. She does not have any history of neuroleptic use. Since around 2020, she has had a right facial droop; she apparently did not seek medical evaluation specifically for this. She has had some visual impairment. She has cataracts. She has chronic bilateral hearing loss and uses hearing aids. She moved to a shelter facility in 2022. Physical therapy was of benefit for her gait. She has had improvement of her gait since initiation of carbidopa/levodopa in 2022 and increasing her dose of carbidopa/levodopa earlier in 2023. Laboratory evaluation for polyneuropathy revealed an abnormal serum free light chains. A subsequent serum immunofixation in April 2023 revealed the presence of monoclonal protein to be unclear at that time. Urine immunofixation revealed no monoclonality. Serum protein electrophoresis was unremarkable. She is being treated for hypothyroidism. A subsequent serum immunofixation in August 2023 revealed IgG monoclonal protein with lambda light chain specificity and an elevated M spike (0.2). Physical Exam: Neuro: The patient is awake and alert and responds appropriately; no tremor is noted; no rigidity is noted in the wrists; motor strength is 5/5 in the quadriceps bilaterally and foot dorsiflexors bilaterally and 4/5 in the iliopsoas bilaterally; gait is slow; she uses a rollator Supplemental Info Cervical spine MRI (05/30/2017): FINDINGS: Normal foramen magnum and brainstem-cervical cord junction. Normal craniovertebral junction. There is hypertrophy of the transverse ligament of the atlas with mild posterior displacement of the superior and inferior longitudinal fibers of the cruciform ligament, producing minimal ventral thecal sac flattening, but without cervical cord impingement. There are mild degenerative changes in the anterior atlantoaxial articulation (sagittal T2 series 2, image 8), unchanged compared the prior examination of October 31, 2015. Normal odontoid process. Normal cervical lordosis. Normal vertebral bodies and posterior osseous elements. C2-3: Normal endplates. Normal disc height, signal and morphology. Normal central canal and intervertebral neural foramina. C3-4: There is disc desiccation, preservation of the disc height with minimal annular bulging. There is severe left-sided foraminal stenosis secondary to uncovertebral and apophyseal joint arthroses (axial T2 series 7, image 114), with probable neural impingement upon the exiting left C4 nerve root. Normal central canal with widely patent right C3-4 intervertebral neural foramina. C4-5: There is disc desiccation, preservation disc height without disc displacement. There is mild to moderate bilateral apophyseal joint arthroses (left greater than right), producing minimal left-side (more content not included)... Normal [facility] CBC W/Diff, Automatedon 10-1 0-2023 Absolute Lymph 1.83 X10 3/uL Normal 0.83-4.51 [facility] Comment on above: Performed By: #### L 500.4100, L500.4050, L100.0100, L506.0400, L501.9520 #### [facility] [address] [place], [address] Absolute Neut 3.7 X10 3/uL Normal 2.0-7.7 [facility] Comment on above: Performed By: #### L 500.4100, L500.4050, L100.0100, L506.0400, L501.9520 #### [facility] [address] [place], [address] Basophils/100 WBC (Bld) 0.7 % Normal 0-1 [facility] Comment on above: Performed By: #### L 500.4100, L500.4050, L100.0100, L506.0400, L501.9520 #### [facility] [address] [place], [address] Eosinophils/100 WBC (Bld) 1.1 % Normal 0-5 [facility] Comment on above: Performed By: #### L 500.4100, L500.4050, L100.0100, L506.0400, L501.9520 #### [facility] [address] [place], [address] Erythrocyte distribution width (RBC) [Ratio] 13.3 % Normal 11.6-14.6 [facility] Comment on above: Performed By: #### L 500.4100, L500.4050, L100.0100, L506.0400, L501.9520 #### [facility] [address] [place], [address] Hematocrit (Bld) [Volume fraction] 41.2 % Normal 37-47 [facility] Comment on above: Performed By: #### L 500.4100, L500.4050, L100.0100, L506.0400, L501.9520 #### [facility] [address] [place], [address] Hemoglobin (Bld) [Mass/Vol] 12.7 g/dL Normal 12.0-15.0 [facility] Comment on above: Performed By: #### L 500.4100, L500.4050, L100.0100, L506.0400, L501.9520 #### [facility] [address] [place], [address] IG% 0.200 Normal 0.0-0.9 [facility] Comment on above: Result Comment: IG% - Immature Granulocytes (promyelocytes, myelocytes and metamyelocytes) > 1% indicates that a LEFT SHIFT is Present. Performed By: #### L 500.4100, L500.4050, L100.0100, L506.0400, L501.9520 #### [facility] [address] [place], [address] Lymphocytes/100 WBC (Bld) 29.9 % Normal 19-41 [facility] Comment on above: Performed By: #### L 500.4100, L500.4050, L100.0100, L506.0400, L501.9520 #### [facility] [address] [place], [address] MCH (RBC) [Entitic mass] 28.2 pg Normal 27.0-32.0 [facility] Comment on above: Performed By: #### L 500.4100, L500.4050, L100.0100, L506.0400, L501.9520 #### [facility] [address] [place], [address] MCHC (RBC) [Mass/Vol] 30.8 g/dL Low 32-36 [facility] Comment on above: Performed By: #### L 500.4100, L500.4050, L100.0100, L506.0400, L501.9520 #### [facility] [address] [place], [address] MCV (RBC) [Entitic vol] 91.4 fL Normal 81-99 [facility] Comment on above: Performed By: #### L 500.4100, L500.4050, L100.0100, L506.0400, L501.9520 #### [facility] [address] [place], [address] Monocytes/100 WBC (Bld) 8.0 % Normal 0-10 [facility] Comment on above: Performed By: #### L 500.4100, L500.4050, L100.0100, L506.0400, L501.9520 #### [facility] [address] [place], [address] Neutrophils/100 WBC (Bld) 60.1 % Normal 47-70 [facility] Comment on above: Performed By: #### L 500.4100, L500.4050, L100.0100, L506.0400, L501.9520 #### [facility] [address] [place], [address] Nucleated RBC (Bld) [#/Vol] 0 10*3/uL Normal 0-5 [facility] Comment on above: Performed By: #### L 500.4100, L500.4050, L100.0100, L506.0400, L501.9520 #### [facility] [address] [place], [address] Platelet mean volume (Bld) [Entitic vol] 9.7 fL Normal 6.2-12.0 [facility] Comment on above: Performed By: #### L 500.4100, L500.4050, L100.0100, L506.0400, L501.9520 #### [facility] [address] [place], [address] Platelets (Bld) [#/Vol] 305 10*3/uL Normal 150-450 [facility] Comment on above: Performed By: #### L 500.4100, L500.4050, L100.0100, L506.0400, L501.9520 #### [facility] [address] [place], [address] RBC (Bld) [#/Vol] 4.51 10*6/uL Normal 4.2-5.4 [facility] Comment on above: Performed By: #### L 500.4100, L500.4050, L100.0100, L506.0400, L501.9520 #### [facility] [address] [place], [address] RDW SD 44.9 fl High 35.1-43.9 [facility] Comment on above: Performed By: #### L 500.4100, L500.4050, L100.0100, L506.0400, L501.9520 #### [facility] [address] [place], [address] WBC (Bld) [#/Vol] 6.1 10*3/uL Normal 4.4-11.0 [facility] Comment on above: Performed By: #### L 500.4100, L500.4050, L100.0100, L506.0400, L501.9520 #### [facility] [address] [place], [address] Comprehensive Metabolic Prof cton 12-22-2023 Albumin [Mass/Vol] 3.7 g/dL Normal 3.2-5.0 [facility] Comment on above: Performed By: #### L 500.4100, L500.4050, L100.0100, L506.0400, L501.9520 #### [facility] [address] [place], [address] Albumin/Globulin [Mass ratio] 1.0 {ratio} Normal 0.9-2.4 [facility] Comment on above: Performed By: #### L 500.4100, L500.4050, L100.0100, L506.0400, L501.9520 #### [facility] [address] [place], [address] ALK P 54 U/L Normal 45-117 [facility] Comment on above: Performed By: #### L 500.4100, L500.4050, L100.0100, L506.0400, L501.9520 #### [facility] [address] [place], [address] ALT [Catalytic activity/Vol] 11 U/L Low 13-56 [facility] Comment on above: Performed By: #### L 500.4100, L500.4050, L100.0100, L506.0400, L501.9520 #### [facility] [address] [place], [address] AST [Catalytic activity/Vol] 18 U/L Normal 15-37 [facility] Comment on above: Performed By: #### L 500.4100, L500.4050, L100.0100, L506.0400, L501.9520 #### [facility] [address] [place], [address] Bilirubin [Mass/Vol] 0.60 mg/dL Normal 0.20-1.00 [facility] Comment on above: Result Comment: For patients on eltrombopag therapy, use of Dimension [place] TBIL is not recommended. Performed By: #### L 500.4100, L500.4050, L100.0100, L506.0400, L501.9520 #### [facility] [address] [place], [address] BUN/CRE 34.6 RATIO High 10-20 [facility] Comment on above: Performed By: #### L 500.4100, L500.4050, L100.0100, L506.0400, L501.9520 #### [facility] [address] [place], [address] CA,Total 10.2 mg/dL High 8.5-10.1 [facility] Comment on above: Performed By: #### L 500.4100, L500.4050, L100.0100, L506.0400, L501.9520 #### [facility] [address] [place], [address] Chloride [Moles/Vol] 104 mmol/L Normal 98-107 [facility] Comment on above: Performed By: #### L 500.4100, L500.4050, L100.0100, L506.0400, L501.9520 #### [facility] [address] [place], [address] CO2 [Moles/Vol] 29.0 mmol/L Normal 21.0-32.0 [facility] Comment on above: Performed By: #### L 500.4100, L500.4050, L100.0100, L506.0400, L501.9520 #### [facility] [address] [place], [address] Creatinine [Mass/Vol] 0.49 mg/dL Low 0.55-1.02 [facility] Comment on above: Result Comment: The validity of the calculated GFR GFRAA in patients over 70 years has not been determined. Clinical correlation is essential. Performed By: #### L 500.4100, L500.4050, L100.0100, L506.0400, L501.9520 #### [facility] [address] [place], [address] EST GFR - AA 153 mL/min Normal >60 [facility] Comment on above: Result Comment: Afri can Armenian GFR Calc Performed By: #### L 500.4100, L500.4050, L100.0100, L506.0400, L501.9520 #### [facility] [address] [place], [address] GAP 5 Normal 5-15 [facility] Comment on above: Performed By: #### L 500.4100, L500.4050, L100.0100, L506.0400, L501.9520 #### [facility] [address] [place], [address] GFR/1.73 sq M.predicted among non-blacks MDRD (S/P/Bld) [Vol rate/Area] 127 mL/min/{1.73_m2} Normal >60 [facility] Comment on above: Result Comment: Non- GFR Calc Performed By: #### L 500.4100, L500.4050, L100.0100, L506.0400, L501.9520 #### [facility] [address] [place], [address] Globulin (S) [Mass/Vol] 3.7 g/dL Normal 2.2-4.2 [facility] Comment on above: Performed By: #### L 500.4100, L500.4050, L100.0100, L506.0400, L501.9520 #### [facility] [address] [place], [address] Glucose [Mass/Vol] 75 mg/dL Normal 74-106 [facility] Comment on above: Performed By: #### L 500.4100, L500.4050, L100.0100, L506.0400, L501.9520 #### [facility] [address] [place], [address] Potassium [Moles/Vol] 4.0 mmol/L Normal 3.5-5.1 [facility] Comment on above: Performed By: #### L 500.4100, L500.4050, L100.0100, L506.0400, L501.9520 #### [facility] [address] [place], [address] Sodium [Moles/Vol] 138 mmol/L Normal 136-145 [facility] Comment on above: Performed By: #### L 500.4100, L500.4050, L100.0100, L506.0400, L501.9520 #### [facility] [address] [place], [address] T PROT 7.4 g/dL Normal 6.4-8.2 [facility] Comment on above: Performed By: #### L 500.4100, L500.4050, L100.0100, L506.0400, L501.9520 #### [facility] [address] [place], [address] Urea nitrogen [Mass/Vol] 17 mg/dL Normal 7-18 [facility] Comment on above: Performed By: #### L 500.4100, L500.4050, L100.0100, L506.0400, L501.9520 #### [facility] [address] [place], [address] Lipid Profileon 12-22-2023 Cholesterol [Mass/Vol] 231 mg/dL High 200 [facility] Comment on above: Result Comment: <200 mg/dL Desirable 200-240 mg/dL Borderline >240 mg/dL High Risk Performed By: #### L 500.4100, L500.4050, L100.0100, L506.0400, L501.9520 #### [facility] [address] [place], [address] Cholesterol in HDL [Mass/Vol] 76 mg/dL Normal [facility] Comment on above: Result Comment: The drugs N-Acetylcysteine and Metamizole may falsely depress this assay. Reference Range HDL <40 mg/dL Low HDL Cholesterol HDL >or= 60 mg/dL High HDL Cholesterol Performed By: #### L 500.4100, L500.4050, L100.0100, L506.0400, L501.9520 #### [facility] [address] [place], [address] Cholesterol in LDL [Mass/Vol] 129 mg/dL Normal 0-130 [facility] Comment on above: Performed By: #### L 500.4100, L500.4050, L100.0100, L506.0400, L501.9520 #### [facility] [address] [place], [address] Cholesterol in VLDL [Mass/Vol] 26 mg/dL Normal 5-40 [facility] Comment on above: Performed By: #### L 500.4100, L500.4050, L100.0100, L506.0400, L501.9520 #### [facility] [address] [place], [address] Triglyceride [Mass/Vol] 129 mg/dL Normal [facility] Comment on above: Result Comment: The drugs N-Acetylcysteine and Metamizole may falsely depress this assay. Serum Triglycerides Reference Interval Normal <150 mg/dL Borderline high 150 - 199 mg/dL High 200 - 499 mg/dL Very High > or = 500 mg/dL Performed By: #### L 500.4100, L500.4050, L100.0100, L506.0400, L501.9520 #### [facility] [address] [place], [address] T4 Free Directon 12-22-2023 T4 FREE DIRECT 1.52 ng/dL High 0.76-1.46 [facility] Comment on above: Performed By: #### L 500.4100, L500.4050, L100.0100, L506.0400, L501.9520 ####[facility] [address] [place], [address] Thyroid Stim Hormone (TSH)on 12-22-2023 TSH 0.103 uIU/mL Low 0.358-3.74 0 [facility] Comment on above: Performed By: #### L 500.4100, L500.4050, L100.0100, L506.0400, L501.9520 #### [facility] [address] [place], [address] Brain/Head without Contrasto n 11-06-2023 Brain/Head without Contrast [facility] Imaging Services [address] [place] [address] Brain/Head without Contrast MR#: [id number] Acct: [id number] Name: DELFINA AVILA Rep #: [id number] : 1935 F 88 From: Servando Alfred MD PCP: Dr. Sukumar Camargo, DO Status: REG ER Study: Brain/Head without Contrast Date of Exam: 10/13 08/04 Exam# [id number] Ordering Dr: Kacey Wayne [id number] INDICATION: Trauma, head injury EXAMINATION: CT BRAIN - CT Head or Brain W/O Contrast Injection TECHNIQUE: Multiple axial images were obtained of the head without intravenous contrast. A radiation dose optimization technique was used for this scan. IV Contrast dosage and agent: None. COMPARISON: Brain MRI 01/27/2023 FINDINGS: BRAIN PARENCHYMA: No intra- or extra-axial hemorrhage. No evidence of acute infarct. No intracranial mass or mass effect. Stable arachnoid cyst left middle cranial fossa. Posterior fossa structures are unremarkable. Stable volume loss with low attenuation of the periventricular white matter typical of chronic small vessel disease. CSF SPACES: Appropriate for age. No hydrocephalus. Basal cisterns are patent. CALVARIUM, SKULL BASE, PARANASAL SINUSES AND MASTOID AIR CELLS: Clear. No acute fracture. CT/Brain/Head without Contrast IMPRESSION: Volume loss with chronic white matter changes. No acute intracranial findings. Electronically Signed: Servando Alfred MD at 15:56 EDT , CC: Dr. 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 Sukumar Camargo DO Status:DEP ER Location: ED HPI HPI - Fall History of Present Illness Chief Complaint: Fall Narrative Narrative: Patient presenting today due to a mechanical fall and head injury that occurred this afternoon. She was bending over to kill a large spider when she lost her balance and fell backwards and hit her head on a small piece of furniture. She denies any LOC or use of blood thinners. She has a small laceration to the back of her head, she is unsure when her last tetanus was updated. She denies any other injury. [facility] Medical History Transaminitis Inability to walk Hypercalcemia Debility Colitis Back pain Old anterior wall myocardial infarction Osteoarthritis Asthma Essential (primary) hypertension Controlled diabetes mellitus with peripheral circulatory disorder HLD (hyperlipidemia) Palpitations Other chest pain Takotsubo cardiomyopathy Home Medications ???Medication ???Instructions ???Recorded ???Last Taken ???Type ezetimibe 10 mg tablet (Zetia) 10 mg PO DAILY cholesterol 12/15/17 02/20/22 History tramadol 50 mg tablet 50 mg PO BID pain 05/08/19 02/20/22 History cholecalciferol (vitamin D3) 50 2,000 unit PO DAILY supplement 10/25/19 02/20/22 History mcg (2,000 unit) tablet carvedilol 25 mg tablet 25 mg PO BID BP #180 tabs 09/11/21 02/20/22 Rx mecobalamin (vitamin B12) 500 mcg mcg PO 09/09/22 Unknown History chewable tablet dnldgqwp-odiz-aeggg acid 120 tab PO DAILY 01/06/23 Unknown History mcg-herb no.293 37.5 mg chewable tablet (Alive Women's Gummy Vitamin) zoledronic acid 5 mg/100 mL in 1 ea .Route ONCE #100 mL 06/15/23 Unknown Rx mannitol 5 %-water intravenous piggybck acetaminophen 325 mg capsule 650 mg PO BID PRN pain 09/08/23 Unknown History calcium carbonate (Calcium 600) 600 mg PO BID #60 tabs 09/08/23 Unknown Rx carbidopa 25 mg-levodopa 100 mg See Rx Instructions .Route 09/08/23 Unknown Rx tablet (Sinemet) .COMPLEX #180 tabs docusate sodium 100 mg capsule 100 mg PO BID pain 09/08/23 Unknown History (Dulcolax Stool Softener (docusate)) ibuprofen 400 mg tablet 400 mg PO DAILY PRN 09/08/23 Unknown History levothyroxine 125 mcg tablet 125 mcg PO QDAY 09/08/23 Unknown History Allergy/AdvReac Type Severity Reaction Status Date / Time amoxicillin Allergy Unknown Unknown Verified 09/08/23 14:52 Anesthetics - Amide Type - Allergy Unknown Verified 09/08/23 14:52 Select A (Anesthetics - Amide Type) Anesthetics - Lizzette Type- Allergy Unknown Verified 09/08/23 14:52 Parabens (Anesthetics - Lizzette Type) Vcbqtwt-FFM-RwP Reductase AdvReac Severe Myalgia Verified 09/08/23 14:52 Inhibitor (Msequaz-Gfj-Zxf Reductase Inhibitor) Family History Father , age 83 Colon cancer Mother , age 90 CHF (congestive heart failure) Brother , age 68 Diabetes Sister CVA (cerebral vascular accident) Daughter Hypertension Daughter Thyroid disorder Surgical History History of left hip replacement History of right hip replacement ( 2016) History of fractured pelvis ( 2013) History of dilation and curettage ( 1994) History of back surgery ( 2016) History of left heart catheterization (LHC) (03/2010) History of cholecystectomy ( 2005) History of tonsillectomy Social History household members: none housing: house Smoking Status: Former smoker how long ago did patient quit smokin alcohol intake: current alcohol intake frequency: holidays/special occasions only Alcohol type: wine substance use type: does not use caffeine: No do you feel safe at home: Yes ROS ROS ED Constitutional Constitutional ED: Denies chills or fever(s) Cardiovascular Cardiovascular: Denies chest pain Respiratory/Chest Respiratory/Chest: Denies dyspnea Gastrointestinal Gastrointestinal: Denies abdominal pain, nausea or vomiting Musculoskeletal Musculoskeletal: Denies arthralgias, back pain or neck pain Integumentary Reports laceration Neurologic Neurologic: Denies weakness EXAM Physical Exam Const Vital Signs: 11/06/23 13:55 11/06/23 13:59 11/06/23 15:54 Temperature 97.6 F L Temperature Source Temporal Pulse Rate 61 78 Respiratory Rate 19 H 16 Respiratory Effort Normal Blood Pressure 160/84 H 208/110 H (more content not included)... Normal [facility] Spine Cervical without Contr ason 11-06-2023 Spine Cervical without Contras [facility] Imaging Services [address] [place] [address] Spine Cervical without Contras MR#: [id number] Acct: [id number] Name: DELFINA AVILA Rep #: [id number] : 1935 F 88 From: Servando Alfred MD PCP: Dr. Sukumar Camargo DO Status: REG ER Study: Spine Cervical without Contras Date of Exam: 0 11/06/23 Exam# [id number] Ordering Dr: Kacey Wayne [id number] INDICATION: head injury, neck pain EXAMINATION: CT CERVICAL SPINE - CT Spine Cervical W/O Contrast Injection TECHNIQUE: Helically acquired images were obtained of the cervical spine. 2D reformatted images were reviewed. A radiation dose optimization technique was used for this scan. IV Contrast dosage and agent: None. COMPARISON: Cervical MRI 05/30/2017 FINDINGS: VERTEBRAE: No acute fracture. No discrete lytic or blastic abnormality. Normal alignment. Multilevel facet joint hypertrophy with degenerative changes at the C7 spinous process as on prior study. DISCS and SPINAL CANAL: Disc heights are preserved. NECK SOFT TISSUES: No prevertebral soft tissue swelling. LUNG APICES: Clear. CT/Spine Cervical without Contras IMPRESSION: Degenerative changes. No acute fracture of the cervical spine. Electronically Signed: Servando Alfred MD at 16:03 EDT Reading Location ID and State: [facility] / [place] Tel , Service support , CC: Dr. Sukumar Camargo DO; VINCE Weston Vacuum Drier Operator: Signed Normal [facility] KEON + Protein Elect, Serumon 09-09-2023 Albumin [Mass/Vol] 3.7 g/dL Normal 2.9-4.4 [facility] Comment on above: Order Comment: N Performed By: #### L 3100.3425 #### [facility] [place] [address], [address] Albumin/Globulin [Mass ratio] 1.2 {ratio} Normal 0.7-1.7 [facility] Comment on above: Order Comment: N Performed By: #### L 3099.5 #### [facility] [address] [place], [address] [id number]-[id number] 0.3 g/dL Normal 0.0-0.4 [facility] Comment on above: Order Comment: N Performed By: #### L 3099.3425 #### [facility] [address] [place], [address] KZAGT-6-HLRM 0.8 g/dL Normal 0.4-1.0 [facility] Comment on above: Order Comment: N Performed By: #### L 5 #### [facility] [address] [place], [address] BETA GLOBULIN 1.0 g/dL Normal 0.7-1.3 [facility] Comment on above: Order Comment: N Performed By: #### L 5 #### [facility] [address] [place], [address] GAMMA GLOBULIN 1.1 g/dL Normal 0.4-1.8 [facility] Comment on above: Order Comment: N Performed By: #### L 5 #### [facility] [address] [place], [address] Globulin (S) [Mass/Vol] 3.2 g/dL Normal 2.2-3.9 [facility] Comment on above: Order Comment: N Performed By: #### L 5 #### [facility] [address] [place], [address] KEON RESULT,S Comment Abnormal . [facility] Comment on above: Order Comment: N Result Comment: Immu nofixation shows IgG monoclonal protein with lambda light chain specificity. Performed By: #### L 342 #### [facility] [address] [place], [address] IMMUNOGLOB A QN 245 mg/dL Normal 64-422 [facility] Comment on above: Order Comment: N Performed By: #### L 3099.3425 #### [facility] [address] [place], [address] IMMUNOGLOB G QN 1189 mg/dL Normal 586-1602 [facility] Comment on above: Order Comment: N Performed By: #### L 3099.3425 #### [facility] [address] [place], [address] IMMUNOGLOB M QN 21 mg/dL Low 26-217 [facility] Comment on above: Order Comment: N Result Comment: Resu lt confirmed on concentration. Performed By: #### L 3099.3425 #### [facility] [address] [place], [address] M-Juan 0.2 g/dL Abnormal Not Observed [facility] Comment on above: Order Comment: N Performed By: #### L 3099.3425 #### [facility] [address] [place], [address] NOTE: Comment Normal . [facility] Comment on above: Order Comment: N Result Comment: Prot ein electrophoresis scan will follow via computer, mail, or controls operator molded goods delivery. Performed at: [address] [id number] Rotating Field Assembler: Gray Mcallister PhD, Phone: [phone] Performed By: #### L 0.3425 #### [facility] [address] [place], [address] Protein [Mass/Vol] 6.9 g/dL Normal 6.0-8.5 [facility] Comment on above: Order Comment: N Performed By: #### L 3099.3425 #### [facility] [address] [place], [address] Cardiology Visit Reporton Cardiology Visit Report [facility] [address] [place] [address] OFFICE VISIT Date of Service: 09/08/23 MR#: [id number] Acct: [id number] Name: DELFINA AVILA Rep #: [id number] : 1935 Provider: ANGIE reese Age/Sex: 88/F [place] [facility] Status: Signed HPI HPI History of Present Illness Details: DELFINA AVILA, is a 88 F who presents to the office today for cardiovascular follow-up. 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 She also has a history of hypertension and diabetes. She resides in [facility]. She denies chest, arm, jaw, or neck discomfort. She denies symptoms of shortness of breath with exertion, shortness of breath at rest, orthopnea, PND, sudden weight gain. She denies bilateral lower extremity edema. She denies chronic cough. She acknowledges dizziness and balance issues. She acknowledges palpitations that are unchanged from previous. She describes this as a flutter. She denies lightheadedness, near syncope, or syncopal episodes. She denies claudication issues. She denies fever or chills. She denies blood in urine, blood in stool, or epistaxis. She denies myalgia. She states fatigue that she attributes to Parkinson's. She acknowledges weakness.. Her exercise tolerance is stable. Intake Vital Signs 09/09/22 11:55 09/06/23 11:35 09/08/23 14:35 Height 5 ft 4 in 5 ft 4 in 5 ft 4 in Weight: 136 lb BMI 23.3 BP 173/78 H Blood Pressure Location Lt brachial Position Sitting Respiration 16 Pulse 59 L Pulse Source NIBP Intake Visit Reasons: 1 Y FU Assistant Site Manager Required: No Is patient in pain?: No Allergies amoxicillin Allergy (Unknown, Verified 09/08/23 14:52) Unknown Anesthetics - Amide Type - Select A (Anesthetics - Amide Type) Allergy (Verified 09/08/23 14:52) Unknown Anesthetics - Lizzette Type- Parabens (Anesthetics - Lizzette Type) Allergy (Verified 09/08/23 14:52) Unknown Rxazshs-GMP-AtV Reductase Inhibitor (Tmgrres-Ktj-Wqx Reductase Inhibitor) Adverse Reaction (Severe, Verified 09/08/23 14:52) Myalgia Medications ???Medication ???Instructions ???Recorded ???Confirmed ???Type ezetimibe 10 mg tablet (Zetia) 10 mg PO DAILY cholesterol 12/15/17 09/08/23 History tramadol 50 mg tablet 50 mg PO BID pain 05/08/19 09/08/23 History cholecalciferol (vitamin D3) 50 2,000 unit PO DAILY supplement 10/25/19 09/08/23 History mcg (2,000 unit) tablet carvedilol 25 mg tablet 25 mg PO BID BP #180 tabs 09/11/21 09/08/23 Rx mecobalamin (vitamin B12) 500 mcg mcg PO 09/09/22 09/08/23 History chewable tablet mgujzucq-yjhf-fbjqq acid 120 tab PO DAILY 01/06/23 09/08/23 History mcg-herb no.293 37.5 mg chewable tablet (Alive Women's Gummy Vitamin) zoledronic acid 5 mg/100 mL in 1 ea .Route ONCE #100 mL 06/15/23 07/06/23 Rx mannitol 5 %-water intravenous piggybck acetaminophen 325 mg capsule 650 mg PO BID PRN pain 09/08/23 09/08/23 History calcium carbonate (Calcium 600) 600 mg PO BID #60 tabs 09/08/23 Rx carbidopa 25 mg-levodopa 100 mg See Rx Instructions .Route 09/08/23 09/08/23 Rx tablet (Sinemet) .COMPLEX #180 tabs docusate sodium 100 mg capsule 100 mg PO BID pain 09/08/23 09/08/23 History (Dulcolax Stool Softener (docusate)) ibuprofen 400 mg tablet 400 mg PO DAILY PRN 09/08/23 09/08/23 History levothyroxine 125 mcg tablet 125 mcg PO QDAY 09/08/23 09/08/23 History Ejection fraction %: 65 Have you fallen in the past year?: No PFSH Medical History Transaminitis Inability to walk Hypercalcemia Debility Colitis Back pain Old anterior wall myocardial infarction Osteoarthritis Asthma Essential (primary) hypertension Controlled diabetes mellitus with peripheral circulatory disorder HLD (hyperlipidemia) Palpitations Other chest pain Takotsubo cardiomyopathy Surgical History History of left hip replacement History of right hip replacement ( 2016) History of fractured pelvis ( 2013) History of dilation and curettage ( 1994) History of back surgery ( 2016) History of left heart catheterization (LHC) (03/2010) History of cholecystectomy ( 2005) History of tonsillectomy Family History Father , age 83 Colon cancer Mother , age 90 CHF (congestive heart failure) Brother , age 68 Diabetes Sister CVA (cerebral vascular accident) Daughter Hypertension Daughter Thyroid disorder Social History household members: none housing: house Smoking Status: Former smoker (more content not included)... Normal [facility] Neurology Visit Reporton Neurology Visit Report [facility] [address], [address] [place] [address] OFFICE VISIT Date of Service: 09/06/23 MR#: [id number] Acct: [id number] Name: DELFINA AVILA Rep #: [id number] : 1935 Provider: Dr. Pollo rich MD Age/Sex: 88/F Location: [facility] Status: Signed Intake Vital Signs 05/03/23 11:02 07/06/23 10:00 09/06/23 11:35 Height 5 ft 4 in 5 ft 4 in 5 ft 4 in Weight: 136 lb BMI 23.3 BP 120/70 Blood Pressure Location Lt brachial Position Sitting Respiration 17 Pulse 66 Pulse Source Monitor Temp 98.7 F Temp Source Temporal Pulse Oximetry (%) 98 Oxygen Delivery Method room air Intake Visit Reasons: 4 M FU Chief Complaint: Assistant Site Manager Required: No Accompanied by: Self Allergies amoxicillin Allergy (Unknown, Verified 09/06/23 11:42) Unknown Anesthetics - Amide Type - Select A (Anesthetics - Amide Type) Allergy (Verified 09/06/23 11:42) Unknown Anesthetics - Lizzette Type- Parabens (Anesthetics - Lizzette Type) Allergy (Verified 09/06/23 11:42) Unknown Jhkdqml-PWN-LuI Reductase Inhibitor (Laehyvc-Ntl-Rqy Reductase Inhibitor) Adverse Reaction (Severe, Verified 09/06/23 11:42) Myalgia Have you fallen in the past year?: No [facility] Medical History Asthma Back pain Colitis Controlled diabetes mellitus with peripheral circulatory disorder Debility Essential (primary) hypertension HLD (hyperlipidemia) Hypercalcemia Inability to walk Old anterior wall myocardial infarction Osteoarthritis Other chest pain Palpitations Takotsubo cardiomyopathy Transaminitis Surgical History History of back surgery ( 2016) History of cholecystectomy ( 2005) History of dilation and curettage ( 1994) History of fractured pelvis ( 2013) History of left heart catheterization (LHC) (03/2010) History of left hip replacement History of right hip replacement ( 2016) History of tonsillectomy Family History Father , age 83 Colon cancer Mother , age 90 CHF (congestive heart failure) Brother , age 68 Diabetes Sister CVA (cerebral vascular accident) Daughter Hypertension Daughter Thyroid disorder Social History household members: none housing: house Smoking Status: Former smoker how long ago did patient quit smokin alcohol intake: current alcohol intake frequency: holidays/special occasions only Alcohol type: wine substance use type: does not use caffeine: No do you feel safe at home: Yes HPI HPI Chief Complaint: Details: Interim History: Delfina returns for follow-up visit. She has a history of hypertension, diet-controlled diabetes mellitus, hyperlipidemia, hypothyroidism, and Parkinson's disease. She has had a total r ight hip replacement and fixation of a left intertrochanteric fracture. She has had prior lumbar spine fusion at L4-5. She has had a prior T12 vertebral body compression fracture. She has had a tremor affecting both hands that began around 2019. Her tremor worsens with action. She has had some difficulty with fine motor control of her hands. She began to have some slurring of speech around 2020. She began having a slow shuffling gait around 2019. She also described having freezing episodes when walking. She has difficulty arising from a seated position. She has difficulty rolling in bed. Her gait difficulty had worsened over time. Her mobility became very limited and she required assistance to arise and takes steps. She uses a rollator. She reported having generalized weakness. She has chronic low back pain. She had a lumbar fusion performed around 2016. She denies having any radicular pain in the lower extremities. She reported having some numbness in the legs (left greater than right). She denied having neck pain. She has had falls. She has had some swallowing difficulty with solids and liquids; speech therapy was of benefit for her dysphagia. She has depression and anxiety. She does not have any history of neuroleptic use. Since around 2020, she has had a right facial droop; she apparently did not seek medical evaluation specifically for this. She has had some visual impairment. She has cataracts. She has chronic bilateral hearing loss and uses hearing aids. She moved to a shelter facility in 2022. Physical therapy was of benefit for her gait. She has had improvement of her gait since initiation of carbidopa/levodopa in 2022 and increasing her dose of carbidopa/levodopa earlier in 2023. She uses a rollator. Laboratory evaluation for polyneuropathy revealed an abnormal serum free light chains. A subsequent serum immunofixation in April 2023 revealed t (more content not included)... Normal [facility] No Panel InformationOrdered By: Young Duarte on 07-05-2023 Vitamin D 25-Hydroxy 53.4 ng/mL [facility] Comment on above: Vitamin D 25(OH) Sta tus Range Deficiency <20 ng/mL (50nmol/L) Insufficiency 20 - 30 ng/mL (50 - 75 nmol/L) Sufficiency 30 - 100 ng/mL (75 - 250 nmol/L) Toxicity >100 ng/mL (>250 nmol/L) Basophil percentageOrdered B y: Efrem Augusto on 07-04-2023 Bilirubin [Mass/Vol] 0.70 mg/dL 0.20-1.00 [facility] Comment on above: For patients on eltr ombopag therapy, use of Dimension [place] TBIL is not recommended. Chloride [Moles/Vol] 106 mmol/L 98-107 [facility] Glucose [Mass/Vol] 136 mg/dL 74-106 [facility] Comment on above: Fasting Glucose resu lt greater than or equal to 126 mg/dL suggests DIABETES MELLITUS per A.D.A. criteria. Potassium [Moles/Vol] 3.7 mmol/L 3.5-5.1 [facility] Protein [Mass/Vol] 7.8 g/dL 6.4-8.2 [facility] Sodium [Moles/Vol] 140 mmol/L 136-145 [facility] Laboratory - Chemistry and C hemistry - challengeOrdered By: Efrem Casas on 07-04-2023 Albumin/Globulin [Mass ratio] 1.1 {ratio} 0.9-2.4 [facility] ALP [Catalytic activity/Vol] 54 U/L 45-117 [facility] ALT [Catalytic activity/Vol] 18 U/L 13-56 [facility] CO2 [Moles/Vol] 29.0 mmol/L 21.0-32.0 [facility] Globulin (S) [Mass/Vol] 3.8 g/dL 2.2-4.2 [facility] Urea nitrogen/Creatinine [Mass ratio] 34.2 mg/mg 10-20 [facility] No Panel InformationOrdered By: Efrem Casas on 07-04-2023 Estimated GFR (MDRD) Amer 142 mL/min >60 [facility] Comment on above: GFR Calc Estimated GFR (MDRD) Non-Af Amer 117 mL/min >60 [facility] Comment on above: Non- GFR Calc Serum or plasma calcium chelsie urement (mass/volume)Ordered By: Efrem Casas on 07-04-2023 Calcium [Mass/Vol] 9.7 mg/dL 8.5-10.1 [facility] Serum or plasma creatinine m easurement (mass/volume)Ordered By: Efrem Casas on 07-04-2023 Creatinine [Mass/Vol] 0.53 mg/dL 0.55-1.02 [facility] Comment on above: The validity of the calculated GFR & GFRAA in patients over 70 years has not been determined. Clinical correlation is essential. Serum or plasma urea nitroge n measurement (mass/volume)Ordered By: Efrem Casas on 07-04-2023 Urea nitrogen [Mass/Vol] 18 mg/dL 7-18 [facility] Thin prep Papanicolaou smear with manual screeningOrdered By: Efrem Casas on 07-04-2023 Thin prep Papanicolaou smear with manual screening 4.0 g/dL 3.2-5.0 [facility] Thin prep Papanicolaou smear with manual screening 19 U/L 15-37 [facility] Thin prep Papanicolaou smear with manual screening 5 5-15 [facility] Laboratory - Hematology and Cell countson 06-15-2023 HbA1c (Bld) [Mass fraction] 5.4 % 4.2-6.3 [facility] Albumin Elph [Mass/Vol]Order ed By: Pollo Caal on 05-03-2023 Albumin [Mass/Vol] 4.2 g/dL 2.9-4.4 [facility] Basophil percentageOrdered B y: Pollo Caal on 05-03-2023 Basophil percentage Comment . [facility] Comment on above: No monoclonality det ected.Performed at: [facility] [place] [id number] Director: Gray Mcallister PhD, Phone: [phone] Interpretation of serum or p lasma protein pattern by immunofixation (narrative resultOrdered By: Pollo Caal on 05-03-2023 Protein Fractions Immunofixation Jose Roberto [Interp] Not Observed g/dL Not Observed [facility] No Panel InformationOrdered By: Pollo Caal on 05-03-2023 Addendum Document Comment . [facility] Comment on above: Protein electrophore sis scan will follow via computer,mail, or controls operator molded goods delivery. Immunoglobulin M 26 mg/dL 26-217 [facility] Comment on above: Result confirmed on concentration. Serum fhqjq-6-kqwmyxui measu rement by electrophoresisOrdered By: Pollo Caal on 05-03-2023 Alpha 1 globulin Elph [Mass/Vol] 0.4 g/dL 0.0-0.4 [facility] Alpha 1 globulin Elph [Mass/Vol] 0.8 g/dL 0.4-1.0 [facility] Serum globulin measurement ( mass/volume)Ordered By: Pollo Caal on 05-03-2023 Globulin (S) [Mass/Vol] 3.4 g/dL 2.2-3.9 [facility] Serum or plasma IgA measurem ent (mass/volume)Ordered By: Pollo Caal on 05-03-2023 IgA [Mass/Vol] 301 mg/dL 64-422 [facility] Serum or plasma IgG measurem ent (mass/volume)Ordered By: Pollo Caal on 05-03-2023 IgG [Mass/Vol] 1385 mg/dL [phone] [facility] Serum or plasma beta globuli n measurement by electrophoresis (mass/volume)Ordered By: Pollo Caal on 05-03-2023 Beta globulin Elph [Mass/Vol] 1.1 g/dL 0.7-1.3 [facility] Serum or plasma gamma globul in measurement by electrophoresis (mass/volume)Ordered By: Pollo Caal on 05-03-2023 Gamma globulin Elph [Mass/Vol] 1.0 g/dL 0.4-1.8 [facility] Serum or plasma immunoelectr ophoresis interpretation (nominal result)Ordered By: Pollo Caal on 05-03-2023 Interpretation IEP [Interp] Comment: . [facility] Comment on above: Presence of monoclon al protein is unclear at this time. Suggestrepeat in 3 to 6 months if clinically indicated. Thin prep Papanicolaou smear with manual screeningOrdered By: Pollo Caal on 05-03-2023 Thin prep Papanicolaou smear with manual screening 1.3 0.7-1.7 [facility] Total protein bloodOrdered B y: Pollo Caal on 05-03-2023 Protein [Mass/Vol] 7.6 g/dL 6.0-8.5 [facility] [place] Basophil percentageOrdered B y: Sukumar Raman on 03-24-2023 Cholesterol [Mass/Vol] 242 mg/dL <200 [facility] Comment on above: <200 mg/dL Desirable 200-240 mg/dL Borderline >240 mg/dL High Risk Triglyceride [Mass/Vol] 188 mg/dL <199 [facility] Comment on above: The drugs N-Acetylcy steine and Metamizole may falsely depress this assay.Serum Triglycerides Reference Interval Normal <150 mg/dL Borderline high 150 - 199 mg/dL High 200 - 499 mg/dL Very High > or = 500 mg/dL Laboratory - Chemistry and C hemistry - challengeOrdered By: Sukumar Camargo on 03-24-2023 Free T4 [Mass/Vol] 1.13 ng/dL 0.76-1.46 [facility] No Panel InformationOrdered By: Sukumar Camargo on 03-24-2023 Thyroid Stimulating Hormone (TSH) 2.34 uIU/mL 0.358-3.74 [facility] Serum or plasma cholesterol in HDL measurement (mass/volume)Ordered By: Sukumar Camargo on 03-24-2023 Cholesterol in HDL [Mass/Vol] 71 mg/dL >40 [facility] Comment on above: The drugs N-Acetylcy steine and Metamizole may falsely depress this assay. Reference Range HDL <40 mg/dL Low HDL Cholesterol HDL >or= 60 mg/dL High HDL Cholesterol Serum or plasma cholesterol in VLDL measurement (mass/volume)Ordered By: Sukumar Camargo on 03-24-2023 Cholesterol in VLDL [Mass/Vol] 38 mg/dL 5-40 [facility] Serum or plasma low density lipoprotein (LDL) cholesterol measurement (mass/volume)Ordered By: Sukumar Camargo on 03-24-2023 Cholesterol in LDL [Mass/Vol] 133 mg/dL 0-130 [facility] Whole blood hemoglobin A1c/t otal hemoglobin ratio (mass fraction)Ordered By: Sukumar Camargo on 03-24-2023 HbA1c (Bld) [Mass fraction] 5.4 % 3.8-5.6 [facility] Comment on above: Normal < 5.7 % Predi abetic 5.7 - 6.4 % Diabetic >or= 6.5 % Please note range changes. Basophil percentageOrdered B y: Pollo Caal on 01-06-2023 Bilirubin [Mass/Vol] 0.40 mg/dL 0.20-1.00 [facility] Comment on above: For patients on eltr ombopag therapy, use of Dimension [place] TBIL is not recommended. Chloride [Moles/Vol] 104 mmol/L 98-107 [facility] Glucose [Mass/Vol] 92 mg/dL 74-106 [facility] Potassium [Moles/Vol] 4.1 mmol/L 3.5-5.1 [facility] Protein [Mass/Vol] 7.7 g/dL 6.4-8.2 [facility] Sodium [Moles/Vol] 139 mmol/L 136-145 [facility] WBC (Bld) [#/Vol] 7.3 10*3/uL 4.4-11.0 [facility] Blood erythrocytes count (nu mber/volume)Ordered By: Pollo Caal on 01-06-2023 RBC (Bld) [#/Vol] 4.50 10*6/uL 4.2-5.4 [facility] Blood hemoglobin measurement (mass/volume)Ordered By: Pollo Caal on 01-06-2023 Hemoglobin (Bld) [Mass/Vol] 12.9 g/dL 12.0-15.0 [facility] Blood platelet mean volumeOr dered By: Pollo Caal on 01-06-2023 Platelet mean volume (Bld) [Entitic vol] 9.7 fL 6.2-12.0 [facility] Determination of erythrocyte mean corpuscular volume (MCV)Ordered By: Pollo Caal on 01-06-2023 MCV (RBC) [Entitic vol] 92.2 fL 81-99 [facility] Hematocrit Auto (Bld) [Volum e fraction]Ordered By: Pollo Caal on 01-06-2023 Hematocrit (Bld) [Volume fraction] 41.5 % 37-47 [facility] Laboratory - Chemistry and C hemistry - challengeOrdered By: Polloceleste Caal on 01-06-2023 ALP [Catalytic activity/Vol] 54 U/L 45-117 [facility] ALT [Catalytic activity/Vol] 25 U/L 13-56 [facility] CO2 [Moles/Vol] 28.0 mmol/L 21.0-32.0 [facility] Cobalamin (Vitamin B12) [Mass/Vol] 1420 pg/mL 211-911 [facility] Free T4 [Mass/Vol] 1.11 ng/dL 0.76-1.46 [facility] Globulin (S) [Mass/Vol] 3.9 g/dL 2.2-4.2 [facility] Urea nitrogen/Creatinine [Mass ratio] 39.7 mg/mg 10-20 [facility] Laboratory - Hematology and Cell countsOrdered By: Pollo Caal on 01-06-2023 Erythrocyte distribution width (RBC) [Entitic vol] 45.8 fL 35.1-43.9 [facility] Erythrocyte distribution width (RBC) [Ratio] 13.5 % 11.6-14.6 [facility] MCH (RBC) [Entitic mass] 28.7 pg 27.0-32.0 [facility] MCHC Auto (RBC) [Mass/Vol]Or dered By: Pollo Caal on 01-06-2023 MCHC (RBC) [Mass/Vol] 31.1 g/dL 32-36 [facility] No Panel InformationOrdered By: Pollo Caal on 01-06-2023 Estimated GFR (MDRD) Amer 158 mL/min >60 [facility] Comment on above: GFR Calc Estimated GFR (MDRD) Non-Af Amer 131 mL/min >60 [facility] Comment on above: Non- GFR Calc Free Lambda Light Chains, Quant 16.4 mg/L 5.7-26.3 [facility] Thyroid Stimulating Hormone (TSH) 7.94 uIU/mL 0.358-3.74 [facility] Whole Blood Vitamin B1 Level 124.8 nmol/L 66.5-200.0 [facility] Comment on above: Performed at: - [address] [id number] Director: Gray Mcallister PhD, Phone: [phone] at: - [facility] [id number] Director: Paradise Sargent MD, Phone: [phone] Platelets bldOrdered By: All Caal on 01-06-2023 Platelets (Bld) [#/Vol] 295 10*3/uL 150-450 [facility] Serum immunoglobulin kappa l ight chains/immunoglobulin lambda light chains mass ratioOrdered By: Pollo Caal on 01-06-2023 Immunoglobulin light chains.kappa/Immunoglobu yash light chains.lambda (S) [Mass ratio] 2.01 0.26-1.65 [facility] Serum or plasma albumin chelsie urement (mass/volume)Ordered By: Pollo Caal on 01-06-2023 Albumin [Mass/Vol] 3.8 g/dL 3.2-5.0 [facility] Serum or plasma albumin/glob ulin mass ratioOrdered By: Pollo Caal on 01-06-2023 Albumin/Globulin [Mass ratio] 1.0 {ratio} 0.9-2.4 [facility] Serum or plasma calcium chelsie urement (mass/volume)Ordered By: Pollo Caal on 01-06-2023 Calcium [Mass/Vol] 9.3 mg/dL 8.5-10.1 [facility] Serum or plasma creatinine m easurement (mass/volume)Ordered By: Pollo Caal 01-06-2023 Creatinine [Mass/Vol] 0.48 mg/dL 0.55-1.02 [facility] Comment on above: The validity of the calculated GFR & GFRAA in patients over 70 years has not been determined. Clinical correlation is essential. Serum or plasma folate measu rement (mass/volume)Ordered By: Pollo Caal on 01-06-2023 Folate [Mass/Vol] 36.10 ng/mL 3.1-55.4 [facility] Comment on above: Slight Hemolysis, Re sult may be falsely increased. Serum or plasma immunoglobul in kappa light chains measurement (mass/volume)Ordered By: Pollo Caal on 01-06-2023 Immunoglobulin light chains.kappa [Mass/Vol] 32.9 mg/L 3.3-19.4 [facility] Serum or plasma urea nitroge n measurement (mass/volume)Ordered By: Pollo Caal 01-06-2023 Urea nitrogen [Mass/Vol] 19 mg/dL 7-18 [facility] Thin prep Papanicolaou smear with manual screeningOrdered By: Pollo Caal 01-06-2023 Thin prep Papanicolaou smear with manual screening 17 U/L 15-37 [facility] Thin prep Papanicolaou smear with manual screening 7 5-15 [facility] Bilirubin Test strip Ql (U)O rdered By: Sukumar Camargo on 11-24-2022 Bilirubin Ql (U) Negative Negative [facility] Culture, urineOrdered By: Akbar Camargo on 11-24-2022 Bacteria identified Cx Nom (U) Mixed Gram Pos & Gram Neg Org [facility] Ketones Test strip Ql (U)Ord ered By: Sukumar Camargo on 11-24-2022 Ketones Ql (U) 5 mg/dl Negative [facility] Nitrite Test strip Ql (U)Ord ered By: Sukumar Camargo on 11-24-2022 Nitrite Ql (U) Negative Negative [facility] Protein Test strip Ql (U)Ord ered By: Sukumar Camargo on 11-24-2022 Protein Ql (U) 15 mg/dl Negative [facility] Urine blood detectionOrdered By: Sukumar Camargo on 11-24-2022 RBC Ql (U) 25 /ul Negative [facility] Urine clarityOrdered By: Janeth Camargo on 11-24-2022 Clarity (U) Cloudy Clear [facility] Urine color determinationOrd ered By: Sukumar Camargo on 11-24-2022 Color (U) Yellow Yellow [facility] Urine glucose detectionOrder ed By: Sukumar Camargo on 11-24-2022 Glucose Ql (U) Normal mg/dl Normal [facility] Urine leukocyte esterase det ection by dipstickOrdered By: Sukumar Camargo on 11-24-2022 Leukocyte esterase Test strip Ql (U) Negative Negative [facility] Urine pHOrdered By: Sukumar bethea on 11-24-2022 pH (U) 6.0 [pH] 5.0 - 8.0 [facility] Urine specific gravity measu rementOrdered By: Sukumar Camargo on 11-24-2022 Specific gravity (U) [Rel density] 1.025 1.002-1.03 0 [facility] Urobilinogen Auto test strip Ql (U)Ordered By: Sukumar Camargo on 11-24-2022 Urobilinogen Ql (U) Normal mg/dl Normal [facility] Culture, urineOrdered By: Akbar Camargo on 05-28-2022 Bacteria identified Cx Nom (U) Escherichia coli [facility] Basophil percentageOrdered B y: Sukumar Camargo on 05-26-2022 Basophil percentage 0-5 SEEN /hpf 0-5 [facility] Bilirubin Test strip Ql (U)O rdered By: Sukumar Camargo on 05-26-2022 Bilirubin Ql (U) Negative Negative [facility] Ketones Test strip Ql (U)Ord ered By: Sukumar Camargo on 05-26-2022 Ketones Ql (U) Negative Negative [facility] Mucus LM Ql (Urine sed)Order ed By: Sukumar Camargo on 05-26-2022 Mucus Ql (Urine sed) 0 SEEN /hpf [facility] Nitrite Test strip Ql (U)Ord ered By: Sukumar Camargo on 05-26-2022 Nitrite Ql (U) Positive Negative [facility] Protein Test strip Ql (U)Ord ered By: Sukumar Camargo on 05-26-2022 Protein Ql (U) Negative Negative [facility] Squamous epithelial cells de tection in urine sediment by light microscopyOrdered By: Sukumar Camargo on 05-26-2022 Epithelial cells.squamous LM Ql (Urine sed) 0-5 SEEN /hpf 5-10 [facility] Urine blood detectionOrdered By: Sukumar Camargo on 05-26-2022 RBC Ql (U) Negative Negative [facility] RBC Ql (U) 0 SEEN /hpf 0-5 [facility] Urine clarityOrdered By: Janeth Camargo on 05-26-2022 Clarity (U) Clear Clear [facility] Urine color determinationOrd ered By: Sukumar Caamrgo on 05-26-2022 Color (U) Yellow Yellow [facility] Urine glucose detectionOrder ed By: Sukumar Camargo on 05-26-2022 Glucose Ql (U) Normal mg/dl Normal [facility] Urine leukocyte esterase det ection by dipstickOrdered By: Sukumar Camargo on 05-26-2022 Leukocyte esterase Test strip Ql (U) 25 /ul Negative [facility] Urine pHOrdered By: Sukumar bethea on 05-26-2022 pH (U) 6.5 [pH] 5.0 - 8.0 [facility] Urine sediment bacteria coun t by microscopy (number/high power field)Ordered By: Sukumar Camargo on 05-26-2022 Bacteria LM.HPF (Urine sed) [#/Area] 2 /[HPF] None Seen [facility] Urine specific gravity measu rementOrdered By: Sukumar Camargo on 05-26-2022 Specific gravity (U) [Rel density] 1.010 1.002-1.03 0 [facility] Urobilinogen Auto test strip Ql (U)Ordered By: Sukumar Camargo on 05-26-2022 Urobilinogen Ql (U) Normal mg/dl Normal [facility] Absolute lymphocyte countOrd ered By: Dr. Ortiz on 02-25-2022 Lymphocytes Auto (Unsp spec) [#/Vol] 1.30 10*3/uL 0.83-4.51 [facility] Basophil percentageOrdered B y: Dr. Ortiz on 02-25-2022 Basophils/100 WBC (Bld) 1.1 % 0-1 [facility] Chloride [Moles/Vol] 107 mmol/L 98-107 [facility] Eosinophils/100 WBC (Bld) 5.1 % 0-5 [facility] Glucose [Mass/Vol] 88 mg/dL 74-106 [facility] Neutrophils (Bld) [#/Vol] 1.9 10*3/uL 2.0-7.7 [facility] Neutrophils/100 WBC (Bld) 50.0 % 47-70 [facility] Potassium [Moles/Vol] 3.7 mmol/L 3.5-5.1 [facility] Sodium [Moles/Vol] 141 mmol/L 136-145 [facility] WBC (Bld) [#/Vol] 3.7 10*3/uL 4.4-11.0 [facility] Blood erythrocytes count (nu mber/volume)Ordered By: Dr. Ortiz on 02-25-2022 RBC (Bld) [#/Vol] 4.33 10*6/uL 4.2-5.4 [facility] Blood hemoglobin measurement (mass/volume)Ordered By: Dr. Ortiz on 02-25-2022 Hemoglobin (Bld) [Mass/Vol] 12.4 g/dL 12.0-15.0 [facility] Blood lymphocytes/100 leukoc ytesOrdered By: Dr. Ortiz on 02-25-2022 Lymphocytes/100 WBC (Bld) 35.1 % 19-41 [facility] Blood monocytes/100 leukocyt esOrdered By: Dr. Ortiz on 02-25-2022 Monocytes/100 WBC (Bld) 8.4 % 0-10 [facility] Blood platelet mean volumeOr dered By: Dr. Ortiz on 02-25-2022 Platelet mean volume (Bld) [Entitic vol] 9.2 fL 6.2-12.0 [facility] COVID-19 virus antigen assay Ordered By: Dr. Ortiz on 02-25-2022 SARS-CoV-2 (COVID-19) Ag IA.rapid Ql (Resp) [facility] Determination of erythrocyte mean corpuscular volume (MCV)Ordered By: Dr. Ortiz on 02-25-2022 MCV (RBC) [Entitic vol] 88.7 fL 81-99 [facility] Hematocrit Auto (Bld) [Volum e fraction]Ordered By: Dr. Ortiz on 02-25-2022 Hematocrit (Bld) [Volume fraction] 38.4 % 37-47 [facility] Laboratory - Chemistry and C hemistry - challengeOrdered By: Dr. Ortiz on 02-25-2022 CO2 [Moles/Vol] 29.0 mmol/L 21.0-32.0 [facility] Urea nitrogen/Creatinine [Mass ratio] 50.6 mg/mg 10-20 [facility] Laboratory - Hematology and Cell countsOrdered By: Dr. Ortiz on 02-25-2022 Erythrocyte distribution width (RBC) [Entitic vol] 42.6 fL 35.1-43.9 [facility] Erythrocyte distribution width (RBC) [Ratio] 13.1 % 11.6-14.6 [facility] Immature granulocytes/100 WBC (Bld) 0.300 % 0.0-0.9 [facility] Comment on above: IG% - Immature Granu locytes (promyelocytes, myelocytes and metamyelocytes) > 1% indicates that a LEFT SHIFT is Present. MCH (RBC) [Entitic mass] 28.6 pg 27.0-32.0 [facility] Nucleated RBC/100 WBC (Bld) [Ratio] 0 % 0-5 [facility] Auto (RBC) [Mass/Vol]Or dered By: Dr. Ortiz on 02-25-2022 MCHC (RBC) [Mass/Vol] 32.3 g/dL 32-36 [facility] No Panel InformationOrdered By: Dr. Ortiz on 02-25-2022 Estimated Creatinine Clearance Calc 36.16 ml/min [facility] Estimated GFR (MDRD) Amer 187 mL/min >60 [facility] Comment on above: GFR Calc Estimated GFR (MDRD) Non-Af Amer 155 mL/min >60 [facility] Comment on above: Non- GFR Calc Platelets bldOrdered By: Dr. Ortiz on 02-25-2022 Platelets (Bld) [#/Vol] 278 10*3/uL 150-450 [facility] Serum or plasma calcium chelsie urement (mass/volume)Ordered By: Dr. Ortiz on 02-25-2022 Calcium [Mass/Vol] 9.7 mg/dL 8.5-10.1 [facility] Serum or plasma creatinine m easurement (mass/volume)Ordered By: Dr. Ortiz on 02-25-2022 Creatinine [Mass/Vol] 0.42 mg/dL 0.55-1.02 [facility] Comment on above: The validity of the calculated GFR & GFRAA in patients over 70 years has not been determined. Clinical correlation is essential. Serum or plasma urea nitroge n measurement (mass/volume)Ordered By: Dr. Ortiz on 02-25-2022 Urea nitrogen [Mass/Vol] 21 mg/dL 7-18 [facility] Thin prep Papanicolaou smear with manual screeningOrdered By: Dr. Ortiz on 02-25-2022 Thin prep Papanicolaou smear with manual screening 5 5-15 [facility] Basophil percentageOrdered B y: Dr. Plummer on 02-21-2022 Basophil percentage 2.1 mg/dL 2.5-4.9 [facility] Bilirubin [Mass/Vol] 1.10 mg/dL 0.20-1.00 [facility] Comment on above: For patients on eltr ombopag therapy, use of Dimension [place] TBIL is not recommended. Protein [Mass/Vol] 6.2 g/dL 6.4-8.2 [facility] Laboratory - Chemistry and C hemistry - challengeOrdered By: Dr. Plummer on 02-21-2022 ALP [Catalytic activity/Vol] 103 U/L 45-117 [facility] ALT [Catalytic activity/Vol] 94 U/L 13-56 [facility] Globulin (S) [Mass/Vol] 3.4 g/dL 2.2-4.2 [facility] Magnesium [Mass/Vol] 2.0 mg/dL 1.6-2.6 [facility] No Panel InformationOrdered By: Dr. Plummer on 02-21-2022 Thyroid Stimulating Hormone (TSH) 0.49 uIU/mL 0.358-3.74 [facility] Serum or plasma albumin chelsie urement (mass/volume)Ordered By: Dr. Plummer on 02-21-2022 Albumin [Mass/Vol] 2.8 g/dL 3.2-5.0 [facility] Serum or plasma albumin/glob ulin mass ratioOrdered By: Dr. Plummer on 02-21-2022 Albumin/Globulin [Mass ratio] 0.8 {ratio} 0.9-2.4 [facility] Thin prep Papanicolaou smear with manual screeningOrdered By: Dr. Plummer on 02-21-2022 Thin prep Papanicolaou smear with manual screening 174 U/L 15-37 [facility] Absolute lymphocyte counton 02-20-2022 Lymphocytes Auto (Unsp spec) [#/Vol] 1.29 10*3/uL 0.83-4.51 [facility] Work Phone: [phone] Basophil percentageOrdered B y: Dr. Bañuelos on 02-20-2022 Basophil percentage 0-5 SEEN /hpf 0-5 [facility] Basophil percentageon 2021 Basophils/100 WBC (Bld) 0.2 % 0-1 [facility] Work Phone: [phone] Chloride [Moles/Vol] 107 mmol/L 98-107 [facility] Work Phone: Eosinophils/100 WBC (Bld) 0.4 % 0-5 [facility] Work Phone: [phone] Glucose [Mass/Vol] 105 mg/dL 74-106 [facility] Work Phone: [phone] Comment on above: Fasting Glucose resu lt from 100 to 125 mg/dL suggests IMPAIRED HOMEOSTASIS per A.D.A. criteria. Neutrophils (Bld) [#/Vol] 6.4 10*3/uL 2.0-7.7 [facility] Work Phone: [phone] Neutrophils/100 WBC (Bld) 77.2 % 47-70 [facility] Work Phone: Potassium [Moles/Vol] 3.4 mmol/L 3.5-5.1 [facility] Work Phone: Sodium [Moles/Vol] 139 mmol/L 136-145 [facility] Work Phone: [phone] WBC (Bld) [#/Vol] 8.3 10*3/uL 4.4-11.0 [facility] Work Phone: [phone] Bilirubin Test strip Ql (U)O rdered By: Dr. Bañuelos on 02-20-2022 Bilirubin Ql (U) Negative Negative [facility] Blood erythrocytes count (nu mber/volume)on 02-20-2022 RBC (Bld) [#/Vol] 4.08 10*6/uL 4.2-5.4 [facility] Work Phone: [phone] Blood hemoglobin measurement (mass/volume)on 02-20-2022 Hemoglobin (Bld) [Mass/Vol] 11.9 g/dL 12.0-15.0 [facility] Work Phone: Blood lymphocytes/100 leukoc yteson 02-20-2022 Lymphocytes/100 WBC (Bld) 15.5 % 19-41 [facility] Work Phone: Blood monocytes/100 leukocyt eson 02-20-2022 Monocytes/100 WBC (Bld) 6.5 % 0-10 [facility] Work Phone: Blood platelet mean volumeon 02-20-2022 Platelet mean volume (Bld) [Entitic vol] 9.3 fL 6.2-12.0 [facility] Work Phone: Determination of erythrocyte mean corpuscular volume (MCV)on 02-20-2022 MCV (RBC) [Entitic vol] 87.3 fL 81-99 [facility] Work Phone: [phone] Hematocrit Auto (Bld) [Volum e fraction]on 02-20-2022 Hematocrit (Bld) [Volume fraction] 35.6 % 37-47 [facility] Work Phone: [phone] Ketones Test strip Ql (U)Ord ered By: Dr. Bañuelos on 02-20-2022 Ketones Ql (U) 5 mg/dl Negative [facility] Laboratory - Chemistry and C hemistry - challengeOrdered By: Dr. Plummer on 02-20-2022 CK [Catalytic activity/Vol] 121 U/L 26-192 [facility] Laboratory - Chemistry and C hemistry - challengeon 02-20-2022 CO2 [Moles/Vol] 29.0 mmol/L 21.0-32.0 [facility] Work Phone: [phone] Urea nitrogen/Creatinine [Mass ratio] 42.0 mg/mg 10-20 [facility] Work Phone: Laboratory - Hematology and Cell countson 02-20-2022 Erythrocyte distribution width (RBC) [Entitic vol] 41.2 fL 35.1-43.9 [facility] Work Phone: [phone] Erythrocyte distribution width (RBC) [Ratio] 13.1 % 11.6-14.6 [facility] Work Phone: [phone] Immature granulocytes/100 WBC (Bld) 0.200 % 0.0-0.9 [facility] Work Phone: [phone] Comment on above: IG% - Immature Granu locytes (promyelocytes, myelocytes and metamyelocytes) > 1% indicates that a LEFT SHIFT is Present. MCH (RBC) [Entitic mass] 29.2 pg 27.0-32.0 [facility] Work Phone: [phone] Nucleated RBC/100 WBC (Bld) [Ratio] 0 % 0-5 [facility] Work Phone: [phone] MCHC Auto (RBC) [Mass/Vol]on 02-20-2022 MCHC (RBC) [Mass/Vol] 33.4 g/dL 32-36 [facility] Work Phone: Mucus LM Ql (Urine sed)Order ed By: Dr. Bañuelos on 02-20-2022 Mucus Ql (Urine sed) 0 SEEN /hpf [facility] Nitrite Test strip Ql (U)Ord ered By: Dr. Bañuelos on 02-20-2022 Nitrite Ql (U) Negative Negative [facility] No Panel Informationon 02-20 Estimated Creatinine Clearance Calc 33.12 ml/min [facility] Work Phone: Estimated GFR (MDRD) Amer 206 mL/min >60 [facility] Work Phone: Comment on above: GFR Calc Estimated GFR (MDRD) Non-Af Amer 171 mL/min >60 [facility] Work Phone: Comment on above: Non- GFR Calc No Panel InformationOrdered By: Dr. Bañuelos on 02-20-2022 Troponin I High Sensitivity 37 pg/mL 3.0-54.0 [facility] Comment on above: Please Note: New Yesenia t Units and Gender Specific Reference Ranges. For more information see Policy Stat Procedure [place] High Sensitivity Troponin (TNIH) and attachments. Platelets bldon 02-20-2022 Platelets (Bld) [#/Vol] 228 10*3/uL 150-450 [facility] Work Phone: Protein Test strip Ql (U)Ord ered By: Dr. Bañuelos on 02-20-2022 Protein Ql (U) Negative Negative [facility] Serum or plasma calcium chelsie urement (mass/volume)on 02-20-2022 Calcium [Mass/Vol] 8.9 mg/dL 8.5-10.1 [facility] Work Phone: Serum or plasma creatinine m easurement (mass/volume)on 02-20-2022 Creatinine [Mass/Vol] 0.38 mg/dL 0.55-1.02 [facility] Work Phone: Comment on above: The validity of the calculated GFR & GFRAA in patients over 70 years has not been determined. Clinical correlation is essential. Serum or plasma urea nitroge n measurement (mass/volume)on 02-20-2022 Urea nitrogen [Mass/Vol] 16 mg/dL 7-18 [facility] Work Phone: Squamous epithelial cells de tection in urine sediment by light microscopyOrdered By: Dr. Bañuelos on 02-20-2022 Epithelial cells.squamous LM Ql (Urine sed) 0 SEEN /hpf 5-10 [facility] Thin prep Papanicolaou smear with manual screeningon 02-20-2022 Thin prep Papanicolaou smear with manual screening 3 5-15 [facility] Work Phone: Urine blood detectionOrdered By: Dr. Bañuelos on 02-20-2022 RBC Ql (U) 50 /ul Negative [facility] RBC Ql (U) 0-5 SEEN /hpf 0-5 [facility] Urine clarityOrdered By: Dr. Bañuelos on 02-20-2022 Clarity (U) Sl. Cloudy Clear [facility] Urine color determinationOrd ered By: Dr. Bañuelos on 02-20-2022 Color (U) Yellow Yellow [facility] Urine glucose detectionOrder ed By: Dr. Bañuelos on 02-20-2022 Glucose Ql (U) Normal mg/dl Normal [facility] Urine leukocyte esterase det ection by dipstickOrdered By: Dr. Bañuelos on 02-20-2022 Leukocyte esterase Test strip Ql (U) 25 /ul Negative [facility] Urine pHOrdered By: Dr. Hunter lu on 02-20-2022 pH (U) 7.0 [pH] 5.0 - 8.0 [facility] Urine sediment bacteria coun t by microscopy (number/high power field)Ordered By: Dr. Bañuelos on 02-20-2022 Bacteria LM.HPF (Urine sed) [#/Area] 2 /[HPF] None Seen [facility] Urine specific gravity measu rementOrdered By: Dr. Bañuelos on 02-20-2022 Specific gravity (U) [Rel density] 1.005 1.002-1.03 0 [facility] Urobilinogen Auto test strip Ql (U)Ordered By: Dr. Bañuelos on 02-20-2022 Urobilinogen Ql (U) Normal mg/dl Normal [facility] No Panel Informationon 01-07 Ionized Calcium 5.8 mg/dL 4.5-5.6 [facility] Work Phone: Comment on above: Performed at: [employer] [facility] [employer] [id number] Director: Gray Mcallister PhD, Phone: [phone] Miscellaneous Test See comment [facility] Work Phone: Comment on above: TEST RESULT LIMITSPT HrP (PTH-Related Peptide)PTHrP (PTH-Related Peptide) <2.0 pmol/LThis test was developed and its performance characteristicsdetermined by [employer]. It has not been cleared or approvedby the Food and Drug Administration.Reference Range:All Ages: <2.0The PTHrP assay should not be used to exclude cancer orscreen tumor patients for humoral hypercalcemia ofmalignancy (HHM). The results should always be assessed inconjunction with the patient's medical history, clinicalexamination, and other findings. If test results areclinically discordant, please contact the laboratory. TESTING PERFORMED AT [facility]. ORIGINAL REPORT ON FILE IN LAB CONTAINS ADDITIONAL TEST SITE INFORMATION. Parathyroid Hormone (Intact) 45.3 pg/mL 18.4-80.1 [facility] Work Phone: Serum or plasma calcium chelsie urement (mass/volume)on 01-07-2022 Calcium [Mass/Vol] 9.9 mg/dL 8.5-10.1 [facility] Work Phone: Basophil percentageon 2021 Bilirubin [Mass/Vol] 0.60 mg/dL 0.20-1.00 [facility] Work Phone: Comment on above: For patients on eltr ombopag therapy, use of Dimension [place] TBIL is not recommended. Chloride [Moles/Vol] 104 mmol/L 98-107 [facility] Work Phone: Glucose [Mass/Vol] 112 mg/dL 74-106 [facility] Work Phone: Comment on above: Fasting Glucose resu lt from 100 to 125 mg/dL suggests IMPAIRED HOMEOSTASIS per A.D.A. criteria. Potassium [Moles/Vol] 4.7 mmol/L 3.5-5.1 [facility] Work Phone: Comment on above: Slight Hemolysis, Re sult may be falsely increased. Protein [Mass/Vol] 8.3 g/dL 6.4-8.2 [facility] Work Phone: Sodium [Moles/Vol] 140 mmol/L 136-145 [facility] Work Phone: Laboratory - Chemistry and C hemistry - challengeon 12-31-2021 ALP [Catalytic activity/Vol] 73 U/L 45-117 [facility] Work Phone: ALT [Catalytic activity/Vol] 30 U/L 13-56 [facility] Work Phone: CO2 [Moles/Vol] 27.0 mmol/L 21.0-32.0 [facility] Work Phone: Free T4 [Mass/Vol] 1.04 ng/dL 0.76-1.46 [facility] Work Phone: Globulin (S) [Mass/Vol] 3.9 g/dL 2.2-4.2 [facility] Work Phone: Urea nitrogen/Creatinine [Mass ratio] 42.3 mg/mg 12-31 [facility] Work Phone: No Panel Informationon 12-31 Estimated GFR (MDRD) Amer 152 mL/min >60 [facility] Work Phone: Comment on above: GFR Calc Estimated GFR (MDRD) Non-Af Amer 126 mL/min >60 [facility] Work Phone: Comment on above: Non- GFR Calc Thyroid Stimulating Hormone (TSH) 8.62 uIU/mL 0.358-3.74 [facility] Work Phone: Vitamin D 25-Hydroxy 35.6 ng/mL [facility] Work Phone: Comment on above: Vitamin D 25(OH) Sta tus Range Deficiency <20 ng/mL (50nmol/L) Insufficiency 20 - 30 ng/mL (50 - 75 nmol/L) Sufficiency 30 - 100 ng/mL (75 - 250 nmol/L) Toxicity >100 ng/mL (>250 nmol/L) Serum or plasma albumin chelsie urement (mass/volume)on 12-31-2021 Albumin [Mass/Vol] 4.4 g/dL 3.2-5.0 [facility] Work Phone: Serum or plasma albumin/glob ulin mass ratioon 12-31-2021 Albumin/Globulin [Mass ratio] 1.1 {ratio} 0.9-2.4 [facility] Work Phone: Serum or plasma calcium chelsie urement (mass/volume)on 12-31-2021 Calcium [Mass/Vol] 10.7 mg/dL 8.5-10.1 [facility] Work Phone: Serum or plasma creatinine m easurement (mass/volume)on 12-31-2021 Creatinine [Mass/Vol] 0.50 mg/dL 0.55-1.02 [facility] Work Phone: Comment on above: The validity of the calculated GFR & GFRAA in patients over 70 years has not been determined. Clinical correlation is essential. Serum or plasma urea nitroge n measurement (mass/volume)on 12-31-2021 Urea nitrogen [Mass/Vol] 21 mg/dL 7-18 [facility] Work Phone: Thin prep Papanicolaou smear with manual screeningon 10-20-2022 Thin prep Papanicolaou smear with manual screening 29 U/L 15-37 [facility] Work Phone: Comment on above: Slight Hemolysis, Re sult may be falsely increased. Thin prep Papanicolaou smear with manual screening 9 5-15 [facility] Work Phone: LUMBAR SPINE W OBL OR 4 VIEW Son 08-06-2021 LUMBAR SPINE W OBL OR 4 VIEWS STUDY: LUMBAR SPINE W OBL OR 4 VIEWS; 08/06/2021 8:06 am INDICATION: PAIN. COMPARISON: 07/06/2018 ACCESSION NUMBER(S): [id number] ORDERING CLINICIAN: Roámn Aguirre FINDINGS: Moderate anterior wedging at T12 unchanged. No definite new lumbar fracture. Posterior fusion hardware with interbody graft at L4-5 appears unchanged. Mild disc height loss at L2-3 and L3-4 appears slightly worsened compared to prior exam. Grade 1 anterolisthesis L4-5. No instability on flexion or extension. Partially imaged right hip arthroplasty and left femoral internal fixation hardware. IMPRESSION: Unchanged postoperative appearance of L4-5. Worsening degenerative disc disease L2-3 and L3-4. No instability. Normal [facility] COVID-19 virus antigen assay SARS-CoV-2 (COVID-19) Ag IA.rapid Ql (Resp) [facility] Work Phone: Influenza virus A and B and SARS-CoV-2 (COVID-19) Ag panel - Upper respiratory specim SARS-CoV-2 (COVID-19) RNA UNA+probe Ql (Resp) [facility] Work Phone: Vital Signs Date Time Vital Sign Value Performing Clinician Shreya jordan 07-06-2023 10:52-0400 Diastolic blood pressure 81 mm[Hg] Dr. Sukumar Camargo Work Phone: [facility] 07-06-2023 10:52-0400 Heart rate 58 /min Dr. Sukumar Camargo Work Phone: [facility] 07-06-2023 10:52-0400 Respiratory rate 16 /min Dr. Sukumar Camargo Work Phone: [facility] 07-06-2023 10:52-0400 Systolic blood pressure 171 mm[Hg] Dr. Sukumar Camargo Work Phone: [facility] 07-06-2023 10:00-0400 Body height 162.[address] Sukumar Camargo Work Phone: [facility] 07-06-2023 10:00-0400 Body temperature 96 [degF] Dr. Sukumar Camargo Work Phone: [facility] 06-15-2023 08:56-0400 Body temperature 98.7 [degF] Dr. Sukumar Camargo Work Phone: [facility] 06-15-2023 08:56-0400 Diastolic blood pressure 80 mm[Hg] Dr. Sukumar Camargo Work Phone: [facility] 06-15-2023 08:56-0400 Heart rate 67 /min Dr. Sukumar Camargo Work Phone: [facility] 06-15-2023 08:56-0400 SaO2% (BldA) [Mass fraction] 96 % Dr. Sukumar Camargo Work Phone: [facility] 06-15-2023 08:56-0400 Systolic blood pressure 122 mm[Hg] Dr. Sukumar Camargo Work Phone: [facility] 05-03-2023 11:02-0500 Body height 162.[address] Sukumar Camargo Work Phone: [facility] 05-03-2023 11:02-0500 Body mass index (BMI) [Ratio] 25.9 kg/m2 Dr. Sukumar Camargo Work Phone: [facility] 05-03-2023 11:02-0500 Body temperature 98.2 [degF] Dr. Sukumar Camargo Work Phone: [facility] 05-03-2023 11:02-0500 Body weight 68.[address] Sukumar Camargo Work Phone: [facility] 05-03-2023 11:02-0500 Diastolic blood pressure 100 mm[Hg] Dr. Sukumar Camargo Work Phone: [facility] 05-03-2023 11:02-0500 Heart rate 64 /min Dr. Sukumar Camargo Work Phone: [facility] 05-03-2023 11:02-0500 Respiratory rate 17 /min Dr. Sukumar Camargo Work Phone: [facility] 05-03-2023 11:02-0500 SaO2% (BldA) [Mass fraction] 99 % Dr. Sukumar Camargo Work Phone: [facility] 05-03-2023 11:02-0500 Systolic blood pressure 160 mm[Hg] Dr. Sukumar Camargo Work Phone: [facility] 01-06-2023 08:55-0400 Body height 162.[address] Sukumar Camargo Work Phone: [facility] 01-06-2023 08:55-0400 Body mass index (BMI) [Ratio] 23.8 kg/m2 Dr. Sukumar Camargo Work Phone: [facility] 01-06-2023 08:55-0400 Body temperature 98.6 [degF] Dr. Sukumar Camargo Work Phone: [facility] 01-06-2023 08:55-0400 Body weight 63.[address] Sukumar Camargo Work Phone: [facility] 01-06-2023 08:55-0400 Diastolic blood pressure 86 mm[Hg] Dr. Sukumar Camargo Work Phone: [facility] 01-06-2023 08:55-0400 Heart rate 55 /min Dr. Sukumar Camargo Work Phone: [facility] 01-06-2023 08:55-0400 Respiratory rate 17 /min Dr. Sukumar Camargo Work Phone: [facility] 01-06-2023 08:55-0400 SaO2% (BldA) [Mass fraction] 97 % Dr. Sukumar Camargo Work Phone: [facility] 01-06-2023 08:55-0400 Systolic blood pressure 130 mm[Hg] Dr. Sukumar Camargo Work Phone: [facility] 02-25-2022 15:10-0500 Heart rate 80 /min Dr. Bill Castaneda Work Phone: [facility] 02-25-2022 15:07-0500 Body temperature 98.6 [degF] Dr. Bill Castaneda Work Phone: [facility] 02-25-2022 15:07-0500 Diastolic blood pressure 65 mm[Hg] Dr. Bill Castaneda Work Phone: [facility] 02-25-2022 15:07-0500 Respiratory rate 18 /min Dr. Bill Castaneda Work Phone: [facility] 02-25-2022 15:07-0500 SaO2% (BldA) [Mass fraction] 100 % Dr. Bill Castaneda Work Phone: [facility] 02-25-2022 15:07-0500 Systolic blood pressure 131 mm[Hg] Dr. Bill Castaneda Work Phone: [facility] 02-22-2022 14:00-0500 Body height 162.[address] Bill Castaneda Work Phone: [facility] 02-22-2022 14:00-0500 Body weight 58.[address] Bill Castaneda Work Phone: [facility] 02-20-2022 16:30-0500 Body mass index (BMI) [Ratio] 22.1 kg/m2 Dr. Bill Castaneda Work Phone: [facility] 02-20-2022 16:02-0500 Body temperature 98.7 [degF] Dr. Bill Castaneda Work Phone: [facility] Work Phone: 02-20-2022 16:02-0500 Diastolic blood pressure 69 mm[Hg] Dr. Bill Castaneda Work Phone: [facility] Work Phone: 02-20-2022 16:02-0500 Heart rate 74 /min Dr. Bill Castaneda Work Phone: [facility] Work Phone: 02-20-2022 16:02-0500 Respiratory rate 13 /min Dr. Bill Castaneda Work Phone: [facility] Work Phone: 02-20-2022 16:02-0500 SaO2% (BldA) [Mass fraction] 98 % Dr. Bill Castaneda Work Phone: [facility] Work Phone: 02-20-2022 16:02-0500 Systolic blood pressure 163 mm[Hg] Dr. Bill Castaneda Work Phone: [facility] Work Phone: 02-20-2022 13:18-0500 Body height 157.[address] Bill Castaneda Work Phone: [facility] Work Phone: 02-20-2022 13:18-0500 Body mass index (BMI) [Ratio] 23.6 kg/m2 Dr. Bill Castaneda Work Phone: [facility] Work Phone: 02-20-2022 13:18-0500 Body weight 58.[address] Bill Castaneda Work Phone: [facility] Work Phone: 02-18-2022 11:26-0500 Body temperature 97.9 [degF] Dr. Bill Castaneda Work Phone: [facility] 02-18-2022 11:26-0500 Diastolic blood pressure 76 mm[Hg] Dr. Bill Castaneda Work Phone: [facility] 02-18-2022 11:26-0500 Heart rate 62 /min Dr. Bill Castaneda Work Phone: [facility] 02-18-2022 11:26-0500 Respiratory rate 16 /min Dr. Bill Castaneda Work Phone: [facility] 02-18-2022 11:26-0500 SaO2% (BldA) [Mass fraction] 99 % Dr. Bill Castaneda Work Phone: [facility] 02-18-2022 11:26-0500 Systolic blood pressure 129 mm[Hg] Dr. Bill Castaneda Work Phone: [facility] 02-18-2022 10:36-0500 Body mass index (BMI) [Ratio] 23.3 kg/m2 Dr. Bill Castaneda Work Phone: [facility] 02-18-2022 10:36-0500 Body weight 58.[address] Bill Castaneda Work Phone: [facility] 01-30-2022 10:54-0500 Body mass index (BMI) [Ratio] 23.3 kg/m2 Dr. Bill Castaneda Work Phone: [facility] Work Phone: 01-30-2022 10:54-0500 Body temperature 99.2 [degF] Dr. Bill Castaneda Work Phone: [facility] Work Phone: 01-30-2022 10:54-0500 Body weight 58.[address] Bill Castaneda Work Phone: [facility] Work Phone: 01-30-2022 10:54-0500 Diastolic blood pressure 62 mm[Hg] Dr. Bill Castaneda Work Phone: [facility] Work Phone: 01-30-2022 10:54-0500 Heart rate 85 /min Dr. Bill Castaneda Work Phone: [facility] Work Phone: 01-30-2022 10:54-0500 Respiratory rate 17 /min Dr. Bill Castaneda Work Phone: [facility] Work Phone: 01-30-2022 10:54-0500 SaO2% (BldA) [Mass fraction] 98 % Dr. Bill Castaneda Work Phone: [facility] Work Phone: 01-30-2022 10:54-0500 Systolic blood pressure 104 mm[Hg] Dr. Bill Castaneda Work Phone: [facility] Work Phone: 01-20-2022 13:14-0500 Body mass index (BMI) [Ratio] 26.6 kg/m2 Dr. Bill Castaneda Work Phone: [facility] Work Phone: 01-20-2022 13:14-0500 Body temperature 98.2 [degF] Dr. Bill Castaneda Work Phone: [facility] Work Phone: 01-20-2022 13:14-0500 Body weight 66.[address] Bill Castaneda Work Phone: [facility] Work Phone: 01-20-2022 13:14-0500 Diastolic blood pressure 78 mm[Hg] Dr. Bill Castaneda Work Phone: [facility] Work Phone: 01-20-2022 13:14-0500 Heart rate 75 /min Dr. Bill Castaneda Work Phone: [facility] Work Phone: 01-20-2022 13:14-0500 Respiratory rate 18 /min Dr. Bill Castaneda Work Phone: [facility] Work Phone: 01-20-2022 13:14-0500 SaO2% (BldA) [Mass fraction] 95 % Dr. Bill Castaneda Work Phone: [facility] Work Phone: 01-20-2022 13:14-0500 Systolic blood pressure 154 mm[Hg] Dr. Bill Castaneda Work Phone: [facility] Work Phone: 12-31-2021 15:34-0400 Body temperature 96.4 [degF] Dr. Bill Castaneda Work Phone: [facility] Work Phone: 12-31-2021 15:34-0400 Diastolic blood pressure 88 mm[Hg] Dr. Bill Castaneda Work Phone: [facility] Work Phone: 12-31-2021 15:34-0400 Heart rate 96 /min Dr. Bill Castaneda Work Phone: [facility] Work Phone: 12-31-2021 15:34-0400 Respiratory rate 18 /min Dr. Bill Castaneda Work Phone: [facility] Work Phone: 12-31-2021 15:34-0400 SaO2% (BldA) [Mass fraction] 96 % Dr. Bill Castaneda Work Phone: [facility] Work Phone: 12-31-2021 15:34-0400 Systolic blood pressure 173 mm[Hg] Dr. Bill Castaneda Work Phone: [facility] Work Phone: Encounters Encounter Date Encounter Type Care Provider Facility Start: 06-19-2024 End: 06-19-2024 ambulatory [facility] Start: 03-27-2024 ambulatory [facility] Facility:[facility] Start: 03-27-2024 End: 03-27-2024 ambulatory [facility] Facility:[facility] Start: 02-28-2024 End: 02-28-2024 ambulatory Pollo Caal Facility:[facility] Start: 12-22-2023 End: 12-22-2023 ambulatory [facility] Facility:[facility] Start: 11-06-2023 End: 11-06-2023 Emergency department patient visit Sandeep Suarez Facility:[facility] Start: 09-08-2023 End: 09-08-2023 ambulatory Sukumar CarvajalRaman Facility:[facility] Start: 09-06-2023 End: 09-06-2023 ambulatory Sukumar CarvajalRaman Facility:[facility] Start: 09-06-2023 End: 09-06-2023 ambulatory [facility] Facility:[facility] Start: 07-06-2023 End: 07-06-[address] Sukumar Camargo Work Phone: [facility] Work Phone: Start: 07-06-2023 End: 07-06-[address] Sukumar Camargo Work Phone: [facility] Work Phone: Start: 07-05-[address] Sukumar carlos Work Phone: [facility] Work Phone: Start: 07-05-2023 End: 07-05-2023 ambulatory [facility] Facility:[facility] Start: 07-04-[address] Sukumar carlos Work Phone: [facility] Work Phone: Start: 07-04-2023 End: 07-04-2023 ambulatory Efrem Casas Facility:[facility] Start: 06-15-2023 End: 06-15-[address] Sukumar Camargo Work Phone: [facility] Work Phone: Start: 05-03-2023 End: 05-03-[address] Sukumar Camargo Work Phone: [facility] Work Phone: Start: 05-03-2023 End: 05-03-[address] Sukumar Camargo Work Phone: [facility] Work Phone: Start: 05-03-2023 End: 05-03-[address] Sukumar Camargo Work Phone: [facility] Work Phone: Start: 03-24-2023 End: 03-24-[address] Sukumar Camargo Work Phone: [facility] Start: 01-27-2023 End: 01-27-[address] Sukumar Camargo Work Phone: [facility] Work Phone: Start: 01-06-2023 End: 01-06-[address] Sukumar Camargo Work Phone: [facility] Work Phone: Start: 01-06-2023 End: 01-06-[address] Sukumar Camargo Work Phone: [facility] Work Phone: Start: 01-06-2023 End: 01-06-[address] Sukumar Camargo Work Phone: [facility] Work Phone: Start: 11-24-2022 End: 11-24-[address] Sukumar Camargo Work Phone: [facility] Work Phone: Start: 05-26-2022 End: 05-26-[address] Bill Castaneda Work Phone: [facility] Work Phone: Start: 05-26-2022 End: 05-26-[address] Bill Castaneda Work Phone: [facility] Start: 02-25-2022 Non-patient / Non-visit Dr. Tommie Castaneda Work Phone: [facility] Start: 02-24-2022 Non-patient / Non-visit Dr. Tommie Castaneda Work Phone: [facility] Start: 02-23-2022 Non-patient / Non-visit Dr. Tommie Castaneda Work Phone: [facility] Start: 02-22-2022 Non-patient / Non-visit Dr. Tommie Castaneda Work Phone: [facility] Start: 02-21-2022 Non-patient / Non-visit Dr. Tommie Castaneda Work Phone: [facility] Start: 02-20-2022 Non-patient / Non-visit Dr. Tommie Castaneda Work Phone: [facility] Start: 02-20-2022 End: 02-25-2022 Evaluation and management of inpatient Dr. Bill Castaneda Work Phone: [facility] 3 Start: 02-18-2022 End: 02-18-[address] Bill Castaneda Work Phone: [facility] Work Phone: Start: 02-18-2022 End: 02-18-[address] Bill Castaneda Work Phone: [facility] Out Start: 01-30-2022 End: 01-30-[address] Bill Castaneda Work Phone: [facility] Start: 01-20-2022 End: 01-20-2022 Emergency department patient visit Dr. Bill Castaneda Work Phone: [facility]Emergency Department Start: 01-07-2022 End: 01-07-[address] Bill Castaneda Work Phone: [facility] Work Phone: Start: 01-07-2022 End: 01-07-[address] Bill Castaneda Work Phone: [facility]Laboratory Start: 12-31-2021 End: 12-31-[address] Bill Castaneda Work Phone: [facility] Work Phone: Start: 12-31-2021 End: 12-31-[address] Bill Castaneda Work Phone: [facility] Start: 12-31-2021 End: 12-31-[address] Bill Castaneda Work Phone: [facility] Start: 12-12-2018 End: 12-12-2018 Outside [facility] Scheduling Comment on above: Spinal stenosis of l umbar region, unspecified whether neurogenic claudication present (Primary Dx) Start: 07-06-2018 Patient encounter procedure Facility:[id number] Start: 09-29-2017 Patient encounter procedure Facility:[id number] Procedures Date Procedure Procedure Detail Performing Clinician Start: 05-03-2023 X-ray of lumbar spin e, two or three views Dr. Sukumar Camargo Work Phone: Start: 01-27-2023 MRI of brain with contrast Dr. Sukumar Camargo Work Phone: Start: 11-24-[address] Sukumar Camargo Work Phone: Start: 01-20-2022 Plain x-ray of pelvi s and lower extremity Dr. Bill Castaneda Work Phone: Start: 01-20-2022 X-ray of lumbar spin e, two or three views Dr. Bill Castaneda Work Phone: SARS-CoV-2 & FLU Ant igen (Rapid) Dr. Bill Castaneda Work Phone: Urine culture Dr. Bill enriquez Work Phone: Viral antigen assay Dr. Rajiv Castaneda Work Phone: Viral antigen assay Dr. Rajiv Castaneda Work Phone: Plan of Treatment Date Care Activity Detail Author Start: 03-02-2022 Blood chemistry [facility] Work Phone: Start: 03-01-2022 Blood chemistry [facility] Work Phone: Start: 02-28-2022 Blood chemistry [facility] Work Phone: Start: 02-27-2022 Blood chemistry [facility] Work Phone: Start: 02-26-2022 Blood chemistry [facility] Work Phone: Start: 02-25-2022 Patient discharge [facility] Start: 02-20-2022 Application of intermittent pneumatic compression device [facility] Start: 02-20-2022 Ambulation without limitation [facility] Start: 02-20-2022 Assessment of risk of venous thromboembolism [facility] Start: 02-20-2022 Catheterization of vein [facility] Start: 02-20-2022 Incentive spirometry [facility] Start: 02-20-2022 Insertion of catheter into peripheral vein [facility] Start: 02-20-2022 Providing care according to standard [facility] Start: 02-20-2022 Referral to occupational therapist [facility] Start: 02-20-2022 Referral to service [facility] Start: 02-20-2022 [facility] Start: 02-20-2022 Following clinical pathway protocol [facility] Start: 02-20-2022 Admission procedure [facility] Start: 02-18-2022 Iv infusion therapy/prophylaxis /dx 1st to 1 hr THER/PROPH/DIAG IV INF INIT [facility] Start: 11-12-2018 Influenza vaccination INFLUENZA VACCINE (#1) [facility] Start: 2002 Pneumococcal vaccination PNEUMOCOCCAL VACCINE SERIES (1 of 2 - PCV13) [facility] Start: 1987 Colonoscopy COLON CANCER SCREENING DISCUSSION [facility] Start: 1987 Zoster vaccine hzv live for subcutaneous use ZOSTER (SHINGLES) VACCINE (1 of 2) [facility] Start: 1977 Screening mammography MAMMOGRAM SCREENING DISCUSSION [facility] Start: 1958 Screening for malignant neoplasm of cervix PAP SMEAR DISCUSSION [facility] Start: 1956 Third diphtheria, tetanus and acellular pertussis (DTaP) vaccination TDAP (ADULT) [facility] Start: 1955 Tetanus vaccination TETANUS [facility] Start: [address] [facility] Anion gap measurement [facility] Work Phone: BUN/Creatinine ratio [facility] Work Phone: Calcium [Mass/volume ] in Serum or Plasma [facility] Work Phone: Carbon dioxide, tota l [Moles/volume] in Serum or Plasma [facility] Work Phone: Chloride [Moles/volu me] in Serum or Plasma [facility] Work Phone: Creatinine [Moles/vo lume] in Serum or Plasma [facility] Work Phone: Glucose [Mass/volume ] in Serum or Plasma [facility] Work Phone: Hematocrit [Volume Fraction] of Blood [facility] Work Phone: Hemoglobin [Mass/vol ume] in Blood [facility] Work Phone: Leukocytes [#/volume ] in Blood [facility] Work Phone: Mean corpuscular hemoglobin concentration determination [facility] Work Phone: Mean corpuscular hemoglobin determination [facility] Work Phone: Measurement of renal function [facility] Work Phone: MR Brain WO and W co ntrast IV [facility] Neutrophil count [facility] Work Phone: Neutrophil percent differential count [facility] Work Phone: Patient Education [facility] Work Phone: Patient referral [facility] Work Phone: Platelets [#/volume] in Blood [facility] Work Phone: Potassium [Moles/vol ume] in Serum or Plasma [facility] Work Phone: Procedure [facility] Work Phone: Red blood cell count [facility] Work Phone: Red cell distributio n width determination [facility] Work Phone: Sodium [Moles/volume ] in Serum or Plasma [facility] Work Phone: Urea nitrogen [Mass/volume] in Serum or Plasma [facility] Work Phone: Vitamin D, 25-hydrox y measurement [facility] Immunizations Immunization Date Immunization Notes [facility] Covid (Moderna) Dr. Bill moya Work Phone: [facility] 04-10-2020 Covid (Moderna) Dr. Bill moya Work Phone: [facility] 12-09-2016 influenza, injectabl e, quadrivalent, preservative free Dr. Sukumar Camargo Work Phone: [facility] 12-09-2016 influenza, seasonal, injectable Dr. Bill Castaneda Work Phone: [facility] 12-13-[address] Bill Castaneda Work Phone: [facility] 04-14-[address] Nikolai Castaneda Work Phone: [facility] Work Phone: 04-14-2008 pneumococcal vaccine , unspecified formulation Dr. Bill Castaneda Work Phone: [facility] Payers Date Payer Category Payer Self-pay [id number] [facility] [id number] 1935 Unknown [id number] 1935 Unknown [id number] Medicare MEDICARE PART A B [id number] Private Health Insurance [id number] Unknown [id number] Unknown [id number] Unknown [id number] Unknown [id number] Unknown [id number] Unknown [id number] Unknown [id number] Unknown [id number] Unknown [id number] Unknown [id number] Unknown [id number] Unknown [id number] Social History Date Type Detail Facility Tobacco smoking stat us NHIS Unknown if ever smoked [facility] Sex Assigned At Not on file [facility] Start: 08-13-2021 End: 06-15-2023 Tobacco smoking status NHIS Unknown if ever smoked [facility] Start: 09-27-2019 None [facility] Start: 09-27-2019 Alone [facility] Start: 09-27-2019 Non-smoker [facility] Start: 1935 Sex Assigned At Female [facility] Goals Date Patient Goal Desired Activity /State Functional Status Date Assessment Result Facility 02-25-2022 Functional status Ambulates [facility] Work Phone: Mental Status Date Assessment Result Facility 07-06-2023 Cognitive function Awake;Alert;A ppropriate;Follow s Commands [facility] Work Phone: 02-25-2022 Cognitive function Appropriate;Cooperativ e [facility] Work Phone: 02-25-2022 Cognitive function Patient Orientation Ti me [facility] Work Phone: 02-24-2022 Cognitive function Voice/Name [facility] Work Phone: 02-20-2022 Cognitive function Level Of Cons ciousness Awake;Alert;Appropriate;Follow s Commands [facility] Work Phone: Evaluation note Note Date & Type Note Facility Evaluation note Diagnosis Onset Date Hypothyroidism chronic Osteoporosis chronic [facility] Work Phone: Evaluation note Note Date & Type Note Facility Evaluation note Diagnosis Onset Date Hypothyroidism chronic Osteoporosis chronic Acute cough acute Acute pharyngitis acute Encounter for screening for COVID-19 acute Right serous otitis media ac [place] Debility acute Hypokalemia acute Inability to walk acute [facility] Work Phone: Evaluation note Note Date & Type Note Facility Evaluation note Diagnosis Onset Date Hypothyroidism chronic Osteoporosis chronic Acute cough acute Acute pharyngitis acute Encounter for screening for COVID-19 acute Right serous otitis media ac [place] Debility acute Hypokalemia acute Inability to walk acute Transaminitis acute [facility] Work Phone: Evaluation note Note Date & Type Note Facility Evaluation note Diagnosis Onset Date Hypokalemia resolved [facility] Work Phone: Evaluation note Note Date & Type Note Facility Evaluation note Diagnosis Onset Date Cerebrovascular disease acut e Parkinson's disease noneacti ve [facility] Work Phone: Evaluation note Note Date & Type Note Facility Evaluation note Diagnosis Onset Date Low back pain acute Polyneuropathy acute [facility] Work Phone: Evaluation note Note Date & Type Note Facility Evaluation note Diagnosis Onset Date Low back pain acute Polyneuropathy acute Controlled diabetes mellitus with peripheral circulatory disorder chronic Hypothyroidism chronic Osteoporosis chronic [facility] Work Phone: Summary Purpose Family History No Family History Records Found Relationship Condition Age at Onset Recorded Date/T liam father Malignant neoplasm of colon Unknown mother Congestive heart failure Unknown brother Diabetes mellitus Unknown sister Cerebrovascular accident (CVA) Unknown daughter Hypertension Unknown daughter Disorder of thyroid Unknown Advance Directives No Advanced Directives Records Found Advance Directive Response Recorded Date/ Time Advance Directives Yes October 24, 2013 1:26pm Living Will Yes September 28, 2019 11:39am Power of Laser Beam Trim Operator Yes September 27 11:39am Advance Directive Response Recorded Date/ Time Name of Medical Power of Laser Beam Trim Operator Dakota and Candace January 20, 2022 1:19pm Name of Medical Power of Laser Beam Trim Operator Candace Danii February 20, 2022 1:24pm Advance Directives Yes October 24, 2013 12:26pm Living Will Yes February 20, 2 022 1:24pm Power of Laser Beam Trim Operator Yes February 20, 2022 1:24pm Advance Directive Response Recorded Date/ Time Name of Medical Power of Laser Beam Trim Operator [place] and Candace January 20, 2022 1:19pm Name of Medical Power of Laser Beam Trim Operator Candace Danii February 20, 2022 4:30pm Advance Directives Yes October 24, 2013 12:26pm Living Will Yes February 20, 2 022 4:30pm Power of Laser Beam Trim Operator Yes February 20, 2022 4:30pm Advance Directive Response Recorded Date/ Time Name of Medical Power of Laser Beam Trim Operator Candace Foy February 20, 2022 5:30pm Advance Directives Yes October 24, 2013 1:26pm Living Will Yes February 20, 2 022 5:30pm Power of Laser Beam Trim Operator Yes February 20, 2022 5:30pm Advance Directive Response Recorded Date/ Time Advance Directives Yes October 24, 2013 1:26pm Living Will Yes February 20, 2 022 5:30pm Power of Laser Beam Trim Operator Yes February 20, 2022 5:30pm Advance Directive Response Recorded Date/ Time Advance Directives Yes October 24, 2013 12:26pm Living Will Yes February 20, 2 022 4:30pm Power of Laser Beam Trim Operator Yes February 20, 2022 4:30pm Reason for Referral Status Reason Specialty Diagnoses / Procedures Referred By Contact Referred To Contact New Request Orthopaedic Surgery Diagnoses Spinal stenosis of lumbar region, unspecified whether neurogenic claudication present Bill Castaneda MD [address] [place] [address] Bia Alonzo MD [address] [place] [id number] Assessments Diagnosis Spinal stenosis of lumbar region, unspecified whether neurogenic claudication present- Primary Chief Complaint and Reason for Visit Chief Complaint Prolia Injection Que stions E ORDERS Reason for Visit Hypothyroidism Osteoporosis Chief Complaint Prolia Injection Que stions E ORDERS fall SORE THROAT, COUGH, RUNNY NOSE, CONGESTED RECLAST DEBILITY AND INABILITY TO AMBULATE Reason for Visit Hypothyroidism Osteoporosis Acute cough Acute pharyngitis Encounter for screening for COVID-19 Right serous otitis media Debility Hypokalemia Inability to walk Chief Complaint Prolia Injection Que stions E ORDERS fall SORE THROAT, COUGH, RUNNY NOSE, CONGESTED RECLAST DEBILITY AND INABILITY TO AMBULATE DEBILITY AND INABILITY TO AMBULATE DEBILITY AND INABILITY TO AMBULATE DEBILITY AND INABILITY TO AMBULATE DEBILITY AND INABILITY TO AMBULATE DEBILITY AND INABILITY TO AMBULATE DEBILITY AND INABILITY TO AMBULATE Reason for Visit Hypothyroidism Osteoporosis Acute cough Acute pharyngitis Encounter for screening for COVID-19 Right serous otitis media Debility Hypokalemia Inability to walk Transaminitis Chief Complaint RECLAST DEBILITY AND INABILITY TO AMBULATE DEBILITY AND INABILITY TO AMBULATE DEBILITY AND INABILITY TO AMBULATE DEBILITY AND INABILITY TO AMBULATE DEBILITY AND INABILITY TO AMBULATE DEBILITY AND INABILITY TO AMBULATE DEBILITY AND INABILITY TO AMBULATE LONGTERM LAB WORK Reason for Visit Hypokalemia Chief Complaint LONGTERM LAB WOR K Parkinson's disease EORDER Reason for Visit Cerebrovascular dise ase Parkinson's disease Chief Complaint PARKINSONS 4 M FU LAB AND XRAY EORDERS- low back pain Reason for Visit Low back pain Polyneuropathy Chief Complaint 4 M FU LAB AND XRAY EORDERS- low back pain 1.5 Y FU LONGTERM LAB WORK RECLAST Reason for Visit Low back pain Polyneuropathy Controlled diabetes mellitus with peripheral circulatory disorder Hypothyroidism Osteoporosis Additional Source Comments INFORMATION SOURCE (unrecogn ized section and content) DATE CREATED AUTHOR 07/16/2018 [facility] DATE CREATED AUTHOR AUTHOR'S ORGANIZ ATION 12/27/2018 [facility] DATE CREATED AUTHOR AUTHOR'S ORGANIZ ATION 09/17/2021 [facility] DATE CREATED AUTHOR AUTHOR'S ORGANIZ ATION 06/19/2024 [facility] Care Teams (unrecognized sec tion and content) Team Status: Active Member Role Status Dates Dr. Bill Castaneda MD Family Provider Active Dr. Bill Castaneda MD Primary Care Provider Active Team Status: Active Member Role Status Dates Dr. Bill Castaneda MD Primary Care Provider Active Dr. Fela Bañuelos DO Emergency Provider Active Dr. Vonda Plummer DO Admit Provider, Attending Provide r, Other Provider Active Team Status: Active Member Role Status Dates Dr. Bill Castaneda MD Primary Care Provider Active Dr. Fela Bañuelos DO Emergency Provider Active Dr. Vonda Plummer , Admit Provider, Other Provider Ac tive Dr. Sruthi Ortiz MD Attending Provider, Other Prov ider Active Team Status: Inactive Member Role Status Dates Dr. Bill Castaneda MD Primary Care Provider Active Dr. Efrem Casas MD Attending Provider, Referring Provi maryanne Active Team Status: Inactive Member Role Status Dates Dr. Bill Castaneda MD Primary Care Provider Active Dr. Fela Bañuelos DO Emergency Provider Active Dr. Vonda Plummer DO Admit Provider, Other Provider Ac tive Dr. Sruthi Ortiz MD Attending Provider Active Team Status: Inactive Member Role Status Dates Dr. Bill Castaneda MD Primary Care Provider Active Sukumar PRIDE Attending Provider Active Team Status: Active Member Role Status Dates Dr. Bill Castaneda MD Family Provider Active Dr. Sukumar Camargo DO Primary Care Provider Active Team Status: Inactive Member Role Status Dates Dr. Pollo Caal MD Attending Provider Active Dr. Sukumar Camargo DO Primary Care Provider, Referrin g Provider Active Team Status: Inactive Member Role Status Dates Dr. Sukumar Camargo DO Primary Care Provider Active Dr. Pollo Caal MD Attending Provider, Referring Provider Active Team Status: Inactive Member Role Status Dates Dr. Sukumar Camargo DO Primary Care Provider, Referrin g Provider Active Dr. Pollo Caal MD Attending Provider Active Team Status: Inactive Member Role Status Dates Dr. Sukumar Camrago DO Primary Care Provider, Attendin g Provider Active Team Status: Inactive Member Role Status Dates Dr. Sukumar Camargo DO Primary Care Provider, Referrin g Provider Active Dr. Efrem Casas MD Attending Provider Active Team Status: Inactive Member Role Status Dates Dr. Sukumar Camargo DO Primary Care Provider Active Dr. Efrem Casas MD Attending Provider, Referring Provi maryanne Active Team Status: Active Member Role Status Dates Dr. Sukumar Camargo DO Primary Care Provider Active Dr. Efrem Casas MD Attending Provider, Referring Provi maryanne Active Team Status: Active Member Role Status Dates Dr. Sukumar Camargo DO Primary Care Provider Active [facility] Attending Provider Active FOR RECORDS PERTAINING TO PATIENTS WHO ARE [...] BE BASED ON THE PRIMARY CLINICAL RECORDS. [employer] provides no warranty or guarantee of the accuracy or completeness of information in this document.
--- OUTSIDE RECORDS SUMMARY | 2024-08-21 03:51 | XMS RPT_ITS | CCD ---
Author Organization 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 Sukumar Camargo Referring Provider [phone] Pollo Caal Attending Provider [phone] Dr. Sukumar Camargo Primary Care Provider [phone] Dr. Sukumar Camargo Referring Provider [phone] Pollo Caal Attending Provider [phone] Dr. Efrem Casas Attending Provider Efrem Casas Attending Unavailable Augusto, Efrem Referring Unavailable Raman, Sukumar Primary Care Unavailable [facility], [place] Attending Unavailable Raman, Sukumar Primary Care Unavailable [...] Unavailable Raman, Sukumar Primary Care Unavailable Roof JALOUSIES INSTALLER, Vijay Vincent Attending Unavailable Bill Castaneda Referring Unavailable Raman, Sukumar Primary Care Unavailable BaddoPollo rodriguez Attending Unavailable Ten, Pollo Referring Unavailable Badroscoe, Pollo Attending Unavailable Raman, Sukumar Referring Unavailable Raman, Sukumar Primary Care Unavailable Allergies Allergy Classification Reported Allergen(s) Allergy Type Date of Onset Reaction(s) Facility (9 sources) Amoxicillin Drug Allergy 2 Unknown [facility] (9 sources) Anesthetics - Amide Type - Select A Allergy to substance 2 Unknown [facility] (9 sources) Anesthetics - Lizzette Type- Parabens Allergy to substance 2 Unknown [facility] (9 sources) Cpcgwxu-Lyv-Qak Reductase Inhibitor Propensity to adverse reactions 2 Myalgia [facility] (1 source) Amoxicillin Drug Allergy 5 [facility] Repository (1 source) Anesthetics - Amide Type - Select A Drug allergy (disorder) 5 [facility] Repository (1 source) Anesthetics - Lizzette Type- Parabens Drug allergy (disorder) 5 [facility] Repository (1 source) Iivxppw-Zuk-Vwf Reductase Inhibitor Drug allergy (disorder) 5 [facility] Repository Medications Current Medications Medication Drug [...] Active MCG PO September 09, 2022 12:00am Pqtkaubg-Uic-Lmvde Acid-Yes222 (Alive Women's Gummy Vitamin) 120 mcg- 37.5 mg tablet,chewable (3 sources) Start: 01-06-2023 take 1 tablet by mouth once daily Ktnxpyfg-Jah-Dklyq Acid-Qjr640 (Alive Women's Gummy Vitamin) 120 mcg- 37.5 mg tablet,chewable Active TABLET PO DAILY January 05, 2023 11:00pm Start: 01-06-2023 take 1 tablet by aayush th once daily Tdcmusph-Wae-Duhqn Acid-Xmy389 (Alive Women's Gummy Vitamin) 120 mcg- 37.5 [...] injection (2 sources) Bisphosphonate Start: 06-15-2023 Zoledronic Yhks-Dbedzpri-Sevbv Active 1 EACH .Route ONCE June 15, 2023 9:29am infuse over 20 minutes Start: 01-07-2022 Zoledronic Aci e-Tduzxhcx-Bgbkz Active 1 EACH .Route ONCE January 07, 2022 12:00am infuse over 20 minutes Completed/Discontinued Medications Medication Drug Class(es) Dates Sig (Normalized) Sig (Original) [id number] 200 actuat albuterol 0.09 mg/actuat metered dose [...] 09-08-2023 Episodic Other aftercare (1 source) Other skilled nursing (current) drug therapy; Translations: [Other terminal gauger supervisor (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 [place] [address] OFFICE VISIT Date of Service: 06/19/24 MR#: [id number] Acct: [id number] Name: MARGARITADELFINA JOSE Rep #: [id number] : 1935 Provider: Imelda Vidal Age/Sex: 89/F Location: [facility] Status: Signed Intake Vital Signs 06/15/23 08:56 [...] Lizzette Type) Allergy (Verified 06/19/24 10:26) Unknown Nsxbwfs-XCT-DtV Reductase Inhibitor (Nkwmfrq-Hxp-Bdi Reductase Inhibitor) Adverse Reaction (Severe, Verified 06/19/24 [...] mcg PO 09/09/22 06/19/24 History chewable tablet zqrsjcgl-hxpe-ophtj acid 120 tab PO DAILY 01/06/23 06/19/24 [...] after taking Reclast. She is residing at [facility]. She doesn't want to take bone [...] No fa (more content not included)... Normal [facility] KEON + Protein Elect, Serumon 2024 Albumin [Mass/Vol] 4.0 g/dL Normal 2.9-4.4 [facility] Comment on above: Order Comment: NABEEL OWN Performed By: #### L 500.4050, L100.0100, L100.9950, L101.9900, L3130.0010, L501.6710, L504.2610, L3100.3425 ####[facility] [address] [place], [address] Albumin/Globulin [Mass ratio] 1.3 {ratio} Normal 0.7-1.7 [facility] Comment on above: Order Comment: NUNKN OWN Performed By: #### L 500.4050, L100.0100, L100.9950, L101.9900, L3130.0010, L501.6710, L504.2610, L3100.3425 ####[facility] [address] [place], [address] RKXSW-5-JVTC 0.3 g/dL Normal 0.0-0.4 [facility] Comment on above: Order Comment: NUNKN OWN Performed By: #### L 500.4050, L100.0100, L100.9950, L101.9900, L3130.0010, L501.6710, L504.2610, L3100.3425 ####[facility] [address] [place], [address] NTUCQ-0-WSHB 0.8 g/dL Normal 0.4-1.0 [facility] Comment on above: Order Comment: NUNKN OWN Performed By: #### L 500.4050, L100.0100, L100.9950, L101.9900, L3130.0010, L501.6710, L504.2610, L3100.3425 ####[facility] [address] [place], [address] BETA GLOBULIN 1.0 g/dL Normal 0.7-1.3 [facility] Comment on above: Order Comment: NUNKN OWN Performed By: #### L 500.4050, L100.0100, L100.9950, L101.9900, L3130.0010, L501.6710, L504.2610, L3100.3425 ####[facility] [address] [place], [address] GAMMA GLOBULIN 1.1 g/dL Normal 0.4-1.8 [facility] Comment on above: Order Comment: NUNKN OWN Performed By: #### L 500.4050, L100.0100, L100.9950, L101.9900, L3130.0010, L501.6710, L504.2610, L3100.3425 ####[facility] [address] [place], [place], [phone] Globulin (S) [Mass/Vol] 3.2 g/dL Normal 2.2-3.9 [facility] Comment on above: Order Comment: NUNKN OWN Performed By: #### L 500.4050, L100.0100, L100.9950, L101.9900, L3130.0010, L501.6710, L504.2610, L3100.3425 ####[facility] [address] [place], [place], [phone] KEON RESULT,S Comment Abnormal . [facility] Comment on above: Order Comment: NUNKN OWN Result Comment: Immu nofixation shows IgG monoclonal protein with lambda light chain specificity. Performed By: #### L 500.4050, L100.0100, L100.9950, L101.9900, L3130.0010, L501.6710, L504.2610, L3100.3425 ####[facility] [address] [place], [place], [phone]) IMMUNOGLOB A QN 274 mg/dL Normal 64-422 [facility] Comment on above: Order Comment: NUNKN OWN Performed By: #### L 500.4050, L100.0100, L100.9950, L101.9900, L3130.0010, L501.6710, L504.2610, L3100.3425 ####[facility] [address] [place], [place], [phone] IMMUNOGLOB G QN 1170 mg/dL Normal 586-1602 [facility] Comment on above: Order Comment: NUNKN OWN Performed By: #### L 500.4050, L100.0100, L100.9950, L101.9900, L3130.0010, L501.6710, L504.2610, L3100.3425 ####[facility] [address] [place], [place], [phone]) IMMUNOGLOB M QN 23 mg/dL Low 26-217 [facility] Comment on above: Order Comment: NUNKN OWN Result Comment: Resu lt confirmed on concentration. Performed By: #### L 500.4050, L100.0100, L100.9950, L101.9900, L3130.0010, L501.6710, L504.2610, L3100.3425 ####[facility] [address] [place], [place], [phone] M-Juan 0.2 g/dL Abnormal Not Observed [facility] Comment on above: Order Comment: NUNKN OWN Performed By: #### L 500.4050, L100.0100, L100.9950, L101.9900, L3130.0010, L501.6710, L504.2610, L3100.3425 ####[facility] [address] [place], [place], [phone] NOTE: Comment Normal . [facility] Comment on above: Order Comment: NUNKN OWN Result Comment: Prot ein electrophoresis scan will follow via computer, mail, or construction code administrator delivery. Performed By: #### L 500.4050, L100.0100, L100.9950, L101.9900, L3130.0010, L501.6710, L504.2610, L3100.3425 ####[facility] [address] [place], [place], [phone] Protein [Mass/Vol] 7.2 g/dL Normal 6.0-8.5 [facility] Comment on above: Order Comment: NUNKN OWN Performed By: #### L 500.4050, L100.0100, L100.9950, L101.9900, L3130.0010, L501.6710, L504.2610, L3100.3425 ####[facility] [address] [place], [place], [phone] [place] Lambda Light Chainson 2024 FR KAPPA LT CHN 33.7 mg/L Abnormal 3.3-19.4 [facility] Comment on above: Order Comment: CHRISTIANNEULOGIO OWN Performed By: #### L 500.4050, L100.0100, L100.9950, L101.9900, L3130.0010, L501.6710, L504.2610, L3100.3425 ####[facility] [address] [place], [place], [phone] FR LAMBDA LT CH 17.3 mg/L Normal 5.7-26.3 [facility] Comment on above: Order Comment: NABEEL OWN Performed By: #### L 500.4050, L100.0100, L100.9950, L101.9900, L3130.0010, L501.6710, L504.2610, L3100.3425 ####[facility] [address] [place], [place], [phone] KAPPA/LAMBDA % 1.95 Abnormal 0.26-1.65 [facility] Comment on above: Order Comment: NUNEULOGIO OWN Result Comment: Perf ormed at: - [facility] [id number] Instrument Repair Technician: Gray Mcallister PhD, Phone: [phone] Performed By: #### L 500.4050, L100.0100, L100.9950, L101.9900, L3130.0010, L501.6710, L504.2610, L3100.3425 ####[facility] [address] [place], [place], [phone] CBC W/Diff, Automatedon 03-14 Absolute Lymph 1.65 X10 3/uL Normal 0.83-4.51 [facility] Comment on above: Performed By: #### L 500.4050, L100.0100, L100.9950, L101.9900, L3130.0010, L501.6710, L504.2610, L3100.3425 ####[facility] [address] [place], [address] Absolute Neut 4.5 X10 3/uL Normal 2.0-7.7 [facility] Comment on above: Performed By: #### L 500.4050, L100.0100, L100.9950, L101.9900, L3130.0010, L501.6710, L504.2610, L3100.3425 ####[facility] [address] [place], [address] Basophils/100 WBC (Bld) 0.7 % Normal 0-1 [facility] Comment on above: Performed By: #### L 500.4050, L100.0100, L100.9950, L101.9900, L3130.0010, L501.6710, L504.2610, L3100.3425 ####[facility] [address] [place], [address] Eosinophils/100 WBC (Bld) 0.9 % Normal 0-5 [facility] Comment on above: Performed By: #### L 500.4050, L100.0100, L100.9950, L101.9900, L3130.0010, L501.6710, L504.2610, L3100.3425 ####[facility] [address] [place], [address] Erythrocyte distribution width (RBC) [Ratio] 13.4 % Normal 11.6-14.6 [facility] Comment on above: Performed By: #### L 500.4050, L100.0100, L100.9950, L101.9900, L3130.0010, L501.6710, L504.2610, L3100.3425 ####[facility] [address] [place], [address] Hematocrit (Bld) [Volume fraction] 42.1 % Normal 37-47 [facility] Comment on above: Performed By: #### L 500.4050, L100.0100, L100.9950, L101.9900, L3130.0010, L501.6710, L504.2610, L3100.3425 ####[facility] [address] [place], [address] Hemoglobin (Bld) [Mass/Vol] 13.4 g/dL Normal 12.0-15.0 [facility] Comment on above: Performed By: #### L 500.4050, L100.0100, L100.9950, L101.9900, L3130.0010, L501.6710, L504.2610, L3100.3425 ####[facility] [address] [place], [address] IG% 0.300 Normal 0.0-0.9 [facility] Comment on above: Result Comment: IG% - Immature Granulocytes (promyelocytes, myelocytes and metamyelocytes) > 1% indicates that a LEFT SHIFT is Present. Performed By: #### L 500.4050, L100.0100, L100.9950, L101.9900, L3130.0010, L501.6710, L504.2610, L3100.3425 ####[facility] [address] [place], [address] Lymphocytes/100 WBC (Bld) 24.3 % Normal 19-41 [facility] Comment on above: Performed By: #### L 500.4050, L100.0100, L100.9950, L101.9900, L3130.0010, L501.6710, L504.2610, L3100.3425 ####[facility] [address] [place], [address] MCH (RBC) [Entitic mass] 28.5 pg Normal 27.0-32.0 [facility] Comment on above: Performed By: #### L 500.4050, L100.0100, L100.9950, L101.9900, L3130.0010, L501.6710, L504.2610, L3100.3425 ####[facility] [address] [place], [address] MCHC (RBC) [Mass/Vol] 31.8 g/dL Low 32-[address] [facility] Comment on above: Performed By: #### L 500.4050, L100.0100, L100.9950, L101.9900, L3130.0010, L501.6710, L504.2610, L3100.3425 ####[facility] [address] [place], [address] MCV (RBC) [Entitic vol] 89.4 fL Normal 81-99 [facility] Comment on above: Performed By: #### L 500.4050, L100.0100, L100.9950, L101.9900, L3130.0010, L501.6710, L504.2610, L3100.3425 ####[facility] [address] [place], [address] Monocytes/100 WBC (Bld) 7.7 % Normal 0-[address] [facility] Comment on above: Performed By: #### L 500.4050, L100.0100, L100.9950, L101.9900, L3130.0010, L501.6710, L504.2610, L3100.3425 ####[facility] [address] [place], [address] Neutrophils/100 WBC (Bld) 66.1 % Normal 47-70 [facility] Comment on above: Performed By: #### L 500.4050, L100.0100, L100.9950, L101.9900, L3130.0010, L501.6710, L504.2610, L3100.3425 ####[facility] [address] [place], [address] Nucleated RBC (Bld) [#/Vol] 0 10*3/uL Normal 0-5 [facility] Comment on above: Performed By: #### L 500.4050, L100.0100, L100.9950, L101.9900, L3130.0010, L501.6710, L504.2610, L3100.3425 ####[facility] [address] [place], [address] Platelet mean volume (Bld) [Entitic vol] 8.9 fL Normal 6.2-12.0 [facility] Comment on above: Performed By: #### L 500.4050, L100.0100, L100.9950, L101.9900, L3130.0010, L501.6710, L504.2610, L3100.3425 ####[facility] [address] [place], [address] Platelets (Bld) [#/Vol] 326 10*3/uL Normal 150-450 [facility] Comment on above: Performed By: #### L 500.4050, L100.0100, L100.9950, L101.9900, L3130.0010, L501.6710, L504.2610, L3100.3425 ####[facility] [address] [place], [address] RBC (Bld) [#/Vol] 4.71 10*6/uL Normal 4.2-5.4 [facility] Comment on above: Performed By: #### L 500.4050, L100.0100, L100.9950, L101.9900, L3130.0010, L501.6710, L504.2610, L3100.3425 ####[facility] [address] [place], [place], [phone] RDW SD 43.9 fl Normal 35.1-43.9 [facility] Comment on above: Performed By: #### L 500.4050, L100.0100, L100.9950, L101.9900, L3130.0010, L501.6710, L504.2610, L3100.3425 ####[facility] [address] [place], [address] WBC (Bld) [#/Vol] 6.8 10*3/uL Normal 4.4-11.0 [facility] Comment on above: Performed By: #### L 500.4050, L100.0100, L100.9950, L101.9900, L3130.0010, L501.6710, L504.2610, L3100.3425 ####[facility] [address] [place], [address] CRPon 03-27-2024 C-REACTIVE PROT < 2.90 Normal 0.0-3.0 [facility] Comment on above: Order Comment: UNKNO WN1 Result Comment: C-Re active Protein (CRP) provides useful information for the diagnosis, therapy and monitoring of inflammatory processes and associated diseases. For the evaluation of Relative Risk for Cardiovascular Disease, a High Sensitivity CRP (HSCRP) should be ordered. Performed By: #### L 500.4050, L100.0100, L100.9950, L101.9900, L3130.0010, L501.6710, L504.2610, L3100.3425 ####[facility] [address] [place], [address] Comprehensive Metabolic Prof ilon 03-27-2024 Albumin [Mass/Vol] 3.7 g/dL Normal 3.2-5.0 [facility] Comment on above: Order Comment: UNKNO WN1 Performed By: #### L 500.4050, L100.0100, L100.9950, L101.9900, L3130.0010, L501.6710, L504.2610, L3100.3425 ####[facility] [address] [place], [address] Albumin/Globulin [Mass ratio] 1.0 {ratio} Normal 0.9-2.4 [facility] Comment on above: Order Comment: UNKNO WN1 Performed By: #### L 500.4050, L100.0100, L100.9950, L101.9900, L3130.0010, L501.6710, L504.2610, L3100.3425 ####[facility] [address] [place], [place], [phone] ALK P 59 U/L Normal 45-117 [facility] Comment on above: Order Comment: UNKNO WN1 Performed By: #### L 500.4050, L100.0100, L100.9950, L101.9900, L3130.0010, L501.6710, L504.2610, L3100.3425 ####[facility] [address] [place], [place], [phone] ALT [Catalytic activity/Vol] 11 U/L Low 13-56 [facility] Comment on above: Order Comment: UNKNO WN1 Performed By: #### L 500.4050, L100.0100, L100.9950, L101.9900, L3130.0010, L501.6710, L504.2610, L3100.3425 ####[facility] [address] [place], [place], [phone] AST [Catalytic activity/Vol] 19 U/L Normal 15-37 [facility] Comment on above: Order Comment: UNKNO WN1 Performed By: #### L 500.4050, L100.0100, L100.9950, L101.9900, L3130.0010, L501.6710, L504.2610, L3100.3425 ####[facility] [address] [place], [address] Bilirubin [Mass/Vol] 0.80 mg/dL Normal 0.20-1.00 [facility] Comment on above: Order Comment: UNKNO WN1 Result Comment: For patients on eltrombopag therapy, use of Dimension [place] TBIL is not recommended. Performed By: #### L 500.4050, L100.0100, L100.9950, L101.9900, L3130.0010, L501.6710, L504.2610, L3100.3425 ####[facility] [address] [place], [address] BUN/CRE 21.2 RATIO High 10-20 [facility] Comment on above: Order Comment: UNKNO WN1 Performed By: #### L 500.4050, L100.0100, L100.9950, L101.9900, L3130.0010, L501.6710, L504.2610, L3100.3425 ####[facility] [address] [place], [address] CA,Total 9.9 mg/dL Normal 8.5-10.1 [facility] Comment on above: Order Comment: UNKNO WN1 Performed By: #### L 500.4050, L100.0100, L100.9950, L101.9900, L3130.0010, L501.6710, L504.2610, L3100.3425 ####[facility] [address] [place], [address] Chloride [Moles/Vol] 105 mmol/L Normal 98-107 [facility] Comment on above: Order Comment: UNKNO WN1 Performed By: #### L 500.4050, L100.0100, L100.9950, L101.9900, L3130.0010, L501.6710, L504.2610, L3100.3425 ####[facility] [address] [place], [address] CO2 [Moles/Vol] 30.0 mmol/L Normal 21.0-32.0 [facility] Comment on above: Order Comment: UNKNO WN1 Performed By: #### L 500.4050, L100.0100, L100.9950, L101.9900, L3130.0010, L501.6710, L504.2610, L3100.3425 ####[facility] [address] [place], [address] Creatinine [Mass/Vol] 0.57 mg/dL Normal 0.55-1.[address] [facility] Comment on above: Order Comment: UNKNO WN1 Result Comment: The validity of the calculated GFR GFRAA in patients over 70 years has not been determined. Clinical correlation is essential. Performed By: #### L 500.4050, L100.0100, L100.9950, L101.9900, L3130.0010, L501.6710, L504.2610, L3100.3425 ####[facility] [address] [place], [place], [id number] EST GFR - AA 130 mL/min Normal >60 [facility] Comment on above: Order Comment: UNKNO WN1 Result Comment: Afri can [place] GFR Calc Performed By: #### L 500.4050, L100.0100, L100.9950, L101.9900, L3130.0010, L501.6710, L504.2610, L3100.3425 ####[facility] [address] [place], [address] GAP 4 Low 5-15 [facility] Comment on above: Order Comment: UNKNO WN1 Performed By: #### L 500.4050, L100.0100, L100.9950, L101.9900, L3130.0010, L501.6710, L504.2610, L3100.3425 ####[facility] [address] [place], [address] GFR/1.73 sq M.predicted among non-blacks MDRD (S/P/Bld) [Vol rate/Area] 108 mL/min/{1.73_m2} Normal >60 [facility] Comment on above: Order Comment: UNKNO WN1 Result Comment: Non- GFR Calc Performed By: #### L 500.4050, L100.0100, L100.9950, L101.9900, L3130.0010, L501.6710, L504.2610, L3100.3425 ####[facility] [address] [place], [address] Globulin (S) [Mass/Vol] 3.8 g/dL Normal 2.2-4.[address] [facility] Comment on above: Order Comment: UNKNO WN1 Performed By: #### L 500.4050, L100.0100, L100.9950, L101.9900, L3130.0010, L501.6710, L504.2610, L3100.3425 ####[facility] [address] [place], [address] Glucose [Mass/Vol] 111 mg/dL High 74-106 [facility] Comment on above: Order Comment: UNKNO WN1 Result Comment: Fast ing Glucose result from 100 to 125 mg/dL suggests IMPAIRED HOMEOSTASIS per A.D.A. criteria. Performed By: #### L 500.4050, L100.0100, L100.9950, L101.9900, L3130.0010, L501.6710, L504.2610, L3100.3425 ####[facility] [address] [place], [address] Potassium [Moles/Vol] 3.9 mmol/L Normal 3.5-5.[address] [facility] Comment on above: Order Comment: UNKNO WN1 Performed By: #### L 500.4050, L100.0100, L100.9950, L101.9900, L3130.0010, L501.6710, L504.2610, L3100.3425 ####[facility] [address] [place], [place], [id number] Sodium [Moles/Vol] 139 mmol/L Normal 136-145 [facility] Comment on above: Order Comment: UNKNO WN1 Performed By: #### L 500.4050, L100.0100, L100.9950, L101.9900, L3130.0010, L501.6710, L504.2610, L3100.3425 ####[facility] [address] [place], [address] T PROT 7.5 g/dL Normal 6.4-8.2 [facility] Comment on above: Order Comment: UNKNO WN1 Performed By: #### L 500.4050, L100.0100, L100.9950, L101.9900, L3130.0010, L501.6710, L504.2610, L3100.3425 ####[facility] [address] [place], [place], [id number] Urea nitrogen [Mass/Vol] 12 mg/dL Normal 7-18 [facility] Comment on above: Order Comment: UNKNO WN1 Performed By: #### L 500.4050, L100.0100, L100.9950, L101.9900, L3130.0010, L501.6710, L504.2610, L3100.3425 ####[facility] [address] [place], [address] Erythrocyte Sed Rateon 03-27 SED RATE 10 mm/hr Normal 0-30 [facility] Comment on above: Performed By: #### L 500.4050, L100.0100, L100.9950, L101.9900, L3130.0010, L501.6710, L504.2610, L3100.3425 ####[facility] [address] [place], [address] LDHon 03-27-2024 LDH 203 U/L Normal 84-246 [facility] Comment on above: Order Comment: UNKNO WN1 Performed By: #### L 500.4050, L100.0100, L100.9950, L101.9900, L3130.0010, L501.6710, L504.2610, L3100.3425 ####[facility] [address] [place], [address] Oncology Visit Reporton 03-14 Oncology Visit Report [facility] [address] [facility] [place] [address] OFFICE VISIT Date of Service: 03/27/24904 MR#: [id number] Acct: [id number] Name: MARTHAESTRELLADELFINA DIMREEANATOLIY Rep #: [id number] : 1935 From: Randy Littlejohn MD Age/Sex: 88/F Location: [facility] Status: Signed HPI Subjective Date of Service 03/27/24 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 She has Parkinson's disease, uses a walker to ambulate, denies pain, weight loss or night sweats. [facility] Medical History Transaminitis Inability to walk Hypercalcemia [...] Lizzette Type) Allergy (Verified 03/27/24 09:07) Unknown Habbtju-FFO-WgL Reductase Inhibitor (Ykdvdiy-Dur-Rgt Reductase Inhibitor) Adverse Reaction (Severe, Verified 03/27/24 [...] 09/09/22 03/27/24 (more content not included)... Normal [facility] Retic Panelon 03-27-2024 IM RET FRACTION 1.90 Low 3.00-15.90 [facility] Comment on above: Performed By: #### L 500.4050, L100.0100, L100.9950, L101.9900, L3130.0010, L501.6710, L504.2610, L3100.3425 ####[facility] [address] [place], [place], [id number] RET-HE 31.9 pg Normal 30-35 [facility] Comment on above: Performed By: #### L 500.4050, L100.0100, L100.9950, L101.9900, L3130.0010, L501.6710, L504.2610, L3100.3425 ####[facility] [address] [place], [place], [id number] Retic Count 0.71 Normal 0.5-1.5 [facility] Comment on above: Performed By: #### L 500.4050, L100.0100, L100.9950, L101.9900, L3130.0010, L501.6710, L504.2610, L3100.3425 ####[facility] [address] [place], [address] Neurology Visit Reporton Neurology Visit Report [facility] [address] [facility], [address] [place] [address] OFFICE VISIT Date of Service: 02/28/24 MR#: [id number] Acct: [id number] Name: DELFINA AVILA Rep #: [id number] : 1935 Provider: Dr. Pollo rich MD Age/Sex: 88/F Location: [facility] Status: Signed HPI HPI Chief Complaint: Details: [...] uses hearing aids. She moved to a alf facility in 2022. Physical therapy was of [...] minimal left-side (more content not included)... Normal [facility] CBC W/Diff, Automatedon 10-1 0-2023 Absolute Lymph 1.83 X10 3/uL Normal 0.83-4.51 [facility] Comment on above: Performed By: #### L 500.4100, L500.4050, L100.0100, L506.0400, L501.9520 #### [facility] [address] [place], [address] Absolute Neut 3.7 X10 3/uL Normal 2.0-7.7 [facility] Comment on above: Performed By: #### L 500.4100, L500.4050, L100.0100, L506.0400, L501.9520 #### [facility] [address] [place], [address] Basophils/100 WBC (Bld) 0.7 % Normal 0-1 [facility] Comment on above: Performed By: #### L 500.4100, L500.4050, L100.0100, L506.0400, L501.9520 #### [facility] [address] [place], [address] Eosinophils/100 WBC (Bld) 1.1 % Normal 0-5 [facility] Comment on above: Performed By: #### L 500.4100, L500.4050, L100.0100, L506.0400, L501.9520 #### [facility] [address] [place], [address] Erythrocyte distribution width (RBC) [Ratio] 13.3 % Normal 11.6-14.6 [facility] Comment on above: Performed By: #### L 500.4100, L500.4050, L100.0100, L506.0400, L501.9520 #### [facility] [address] [place], [address] Hematocrit (Bld) [Volume fraction] 41.2 % Normal 37-47 [facility] Comment on above: Performed By: #### L 500.4100, L500.4050, L100.0100, L506.0400, L501.9520 #### [facility] [address] [place], [address] Hemoglobin (Bld) [Mass/Vol] 12.7 g/dL Normal 12.0-15.0 [facility] Comment on above: Performed By: #### L 500.4100, L500.4050, L100.0100, L506.0400, L501.9520 #### [facility] [address] [place], [address] IG% 0.200 Normal 0.0-0.9 [facility] Comment on above: Result Comment: IG% - Immature Granulocytes (promyelocytes, myelocytes and metamyelocytes) > 1% indicates that a LEFT SHIFT is Present. Performed By: #### L 500.4100, L500.4050, L100.0100, L506.0400, L501.9520 #### [facility] [address] [place], [address] Lymphocytes/100 WBC (Bld) 29.9 % Normal 19-41 [facility] Comment on above: Performed By: #### L 500.4100, L500.4050, L100.0100, L506.0400, L501.9520 #### [facility] [address] [place], [address] MCH (RBC) [Entitic mass] 28.2 pg Normal 27.0-32.0 [facility] Comment on above: Performed By: #### L 500.4100, L500.4050, L100.0100, L506.0400, L501.9520 #### [facility] [address] [place], [address] MCHC (RBC) [Mass/Vol] 30.8 g/dL Low 32-[address] [facility] Comment on above: Performed By: #### L 500.4100, L500.4050, L100.0100, L506.0400, L501.9520 #### [facility] [address] [place], [address] MCV (RBC) [Entitic vol] 91.4 fL Normal 81-[address] [facility] Comment on above: Performed By: #### L 500.4100, L500.4050, L100.0100, L506.0400, L501.9520 #### [facility] [address] [place], [address] Monocytes/100 WBC (Bld) 8.0 % Normal 0-10 [facility] Comment on above: Performed By: #### L 500.4100, L500.4050, L100.0100, L506.0400, L501.9520 #### [facility] [address] [place], [address] Neutrophils/100 WBC (Bld) 60.1 % Normal 47-70 [facility] Comment on above: Performed By: #### L 500.4100, L500.4050, L100.0100, L506.0400, L501.9520 #### [facility] [address] [place], [address] Nucleated RBC (Bld) [#/Vol] 0 10*3/uL Normal 0-5 [facility] Comment on above: Performed By: #### L 500.4100, L500.4050, L100.0100, L506.0400, L501.9520 #### [facility] [address] [place], [address] Platelet mean volume (Bld) [Entitic vol] 9.7 fL Normal 6.2-12.0 [facility] Comment on above: Performed By: #### L 500.4100, L500.4050, L100.0100, L506.0400, L501.9520 #### [facility] [address] [place], [address] Platelets (Bld) [#/Vol] 305 10*3/uL Normal 150-450 [facility] Comment on above: Performed By: #### L 500.4100, L500.4050, L100.0100, L506.0400, L501.9520 #### [facility] [address] [place], [address] RBC (Bld) [#/Vol] 4.51 10*6/uL Normal 4.2-5.4 [facility] Comment on above: Performed By: #### L 500.4100, L500.4050, L100.0100, L506.0400, L501.9520 #### [facility] [address] [place], [address] RDW SD 44.9 fl High 35.1-43.9 [facility] Comment on above: Performed By: #### L 500.4100, L500.4050, L100.0100, L506.0400, L501.9520 #### [facility] [address] [place], [address] WBC (Bld) [#/Vol] 6.1 10*3/uL Normal 4.4-11.0 [facility] Comment on above: Performed By: #### L 500.4100, L500.4050, L100.0100, L506.0400, L501.9520 #### [facility] [address] [place], [address] Comprehensive Metabolic Prof vton 12-22-2023 Albumin [Mass/Vol] 3.7 g/dL Normal 3.2-5.0 [facility] Comment on above: Performed By: #### L 500.4100, L500.4050, L100.0100, L506.0400, L501.9520 #### [facility] [address] [place], [address] Albumin/Globulin [Mass ratio] 1.0 {ratio} Normal 0.9-2.4 [facility] Comment on above: Performed By: #### L 500.4100, L500.4050, L100.0100, L506.0400, L501.9520 #### [facility] [address] [place], [address] ALK P 54 U/L Normal 45-117 [facility] Comment on above: Performed By: #### L 500.4100, L500.4050, L100.0100, L506.0400, L501.9520 #### [facility] [address] [place], [address] ALT [Catalytic activity/Vol] 11 U/L Low 13-56 [facility] Comment on above: Performed By: #### L 500.4100, L500.4050, L100.0100, L506.0400, L501.9520 #### [facility] [address] [place], [address] AST [Catalytic activity/Vol] 18 U/L Normal 15-37 [facility] Comment on above: Performed By: #### L 500.4100, L500.4050, L100.0100, L506.0400, L501.9520 #### [facility] [address] [place], [address] Bilirubin [Mass/Vol] 0.60 mg/dL Normal 0.20-1.00 [facility] Comment on above: Result Comment: For patients on eltrombopag therapy, use of Dimension [place] TBIL is not recommended. Performed By: #### L 500.4100, L500.4050, L100.0100, L506.0400, L501.9520 #### [facility] [address] [place], [address] BUN/CRE 34.6 RATIO High 10-20 [facility] Comment on above: Performed By: #### L 500.4100, L500.4050, L100.0100, L506.0400, L501.9520 #### [facility] [address] [place], [address] CA,Total 10.2 mg/dL High 8.5-10.1 [facility] Comment on above: Performed By: #### L 500.4100, L500.4050, L100.0100, L506.0400, L501.9520 #### [facility] [address] [place], [address] Chloride [Moles/Vol] 104 mmol/L Normal 98-107 [facility] Comment on above: Performed By: #### L 500.4100, L500.4050, L100.0100, L506.0400, L501.9520 #### [facility] [address] [place], [address] CO2 [Moles/Vol] 29.0 mmol/L Normal 21.0-32.0 [facility] Comment on above: Performed By: #### L 500.4100, L500.4050, L100.0100, L506.0400, L501.9520 #### [facility] [address] [place], [address] Creatinine [Mass/Vol] 0.49 mg/dL Low 0.55-1.[address] [facility] Comment on above: Result Comment: The validity of the calculated GFR GFRAA in patients over 70 years has not been determined. Clinical correlation is essential. Performed By: #### L 500.4100, L500.4050, L100.0100, L506.0400, L501.9520 #### [facility] [address] [place], [address] EST GFR - AA 153 mL/min Normal >60 [facility] Comment on above: Result Comment: Afri can Chadian GFR Calc Performed By: #### L 500.4100, L500.4050, L100.0100, L506.0400, L501.9520 #### [facility] [address] [place], [address] GAP 5 Normal 5-15 [facility] Comment on above: Performed By: #### L 500.4100, L500.4050, L100.0100, L506.0400, L501.9520 #### [facility] [address] [place], [address] GFR/1.73 sq M.predicted among non-blacks MDRD (S/P/Bld) [Vol rate/Area] 127 mL/min/{1.73_m2} Normal >60 [facility] Comment on above: Result Comment: Non- GFR Calc Performed By: #### L 500.4100, L500.4050, L100.0100, L506.0400, L501.9520 #### [facility] [address] [place], [address] Globulin (S) [Mass/Vol] 3.7 g/dL Normal 2.2-4.[address] [facility] Comment on above: Performed By: #### L 500.4100, L500.4050, L100.0100, L506.0400, L501.9520 #### [facility] [address] [place], [address] Glucose [Mass/Vol] 75 mg/dL Normal 74-106 [facility] Comment on above: Performed By: #### L 500.4100, L500.4050, L100.0100, L506.0400, L501.9520 #### [facility] [address] [place], [address] Potassium [Moles/Vol] 4.0 mmol/L Normal 3.5-5.[address] [facility] Comment on above: Performed By: #### L 500.4100, L500.4050, L100.0100, L506.0400, L501.9520 #### [facility] [address] [place], [address] Sodium [Moles/Vol] 138 mmol/L Normal 136-145 [facility] Comment on above: Performed By: #### L 500.4100, L500.4050, L100.0100, L506.0400, L501.9520 #### [facility] [address] [place], [address] T PROT 7.4 g/dL Normal 6.4-8.2 [facility] Comment on above: Performed By: #### L 500.4100, L500.4050, L100.0100, L506.0400, L501.9520 #### [facility] [address] [place], [address] Urea nitrogen [Mass/Vol] 17 mg/dL Normal 7-18 [facility] Comment on above: Performed By: #### L 500.4100, L500.4050, L100.0100, L506.0400, L501.9520 #### [facility] [address] [place], [address] Lipid Profileon 12-22-2023 Cholesterol [Mass/Vol] 231 mg/dL High 200 [facility] Comment on above: Result Comment: <200 mg/dL Desirable 200-240 mg/dL Borderline >240 mg/dL High Risk Performed By: #### L 500.4100, L500.4050, L100.0100, L506.0400, L501.9520 #### [facility] [address] [place], [address] Cholesterol in HDL [Mass/Vol] 76 mg/dL Normal [facility] Comment on above: Result Comment: The drugs N-Acetylcysteine and Metamizole may falsely depress this assay. Reference Range HDL <40 mg/dL Low HDL Cholesterol HDL >or= 60 mg/dL High HDL Cholesterol Performed By: #### L 500.4100, L500.4050, L100.0100, L506.0400, L501.9520 #### [facility] [address] [place], [address] Cholesterol in LDL [Mass/Vol] 129 mg/dL Normal 0-130 [facility] Comment on above: Performed By: #### L 500.4100, L500.4050, L100.0100, L506.0400, L501.9520 #### [facility] [address] [place], [address] Cholesterol in VLDL [Mass/Vol] 26 mg/dL Normal 5-40 [facility] Comment on above: Performed By: #### L 500.4100, L500.4050, L100.0100, L506.0400, L501.9520 #### [facility] [address] [place], [address] Triglyceride [Mass/Vol] 129 mg/dL Normal [facility] Comment on above: Result Comment: The drugs N-Acetylcysteine and Metamizole may falsely depress this assay. Serum Triglycerides Reference Interval Normal <150 mg/dL Borderline high 150 - 199 mg/dL High 200 - 499 mg/dL Very High > or = 500 mg/dL Performed By: #### L 500.4100, L500.4050, L100.0100, L506.0400, L501.9520 #### [facility] [address] [place], [address] T4 Free Directon 12-22-2023 T4 FREE DIRECT 1.52 ng/dL High 0.76-1.46 [facility] Comment on above: Performed By: #### L 500.4100, L500.4050, L100.0100, L506.0400, L501.9520 ####[facility] [address] [place], [address] Thyroid Stim Hormone (TSH)on 12-22-2023 TSH 0.103 uIU/mL Low 0.358-3.74 0 [facility] Comment on above: Performed By: #### L 500.4100, L500.4050, L100.0100, L506.0400, L501.9520 #### [facility] [address] [place], [address] Brain/Head without Contrasto n 11-06-2023 Brain/Head without Contrast [facility] [address] [place] [address] Brain/Head without Contrast MR#: [id number] Acct: [id number] Name: DELFINA AVILA Rep #: [id number] : 1935 F 88 From: Servando Alfred MD PCP: Dr. Sukumar Camargo, DO Status: REG ER Study: Brain/Head without Contrast Date of Exam: 10/13 08/04 Exam# [id number] Ordering Dr: Kacey Wayne [id number] INDICATION: Trauma, head injury EXAMINATION: CT BRAIN [...] CC: Dr. 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 She denies any other injury. [facility] Medical History Transaminitis Inability to walk Hypercalcemia [...] mcg PO 09/09/22 Unknown History chewable tablet sfutbcfj-wagw-jhpvs acid 120 tab PO DAILY 01/06/23 Unknown [...] 09/08/23 14:52 Parabens (Anesthetics - Lizzette Type) Ebcdbbe-PQZ-KvY Reductase AdvReac Severe Myalgia Verified 09/08/23 14:52 Inhibitor (Rruwlou-Yec-Pwx Reductase Inhibitor) Family History Father , age [...] 208/110 H (more content not included)... Normal [facility] Spine Cervical without Contr ason 11-06-2023 Spine Cervical without Contras [facility] [address] [place] [address] Spine Cervical without Contras MR#: [id number] Acct: [id number] Name: DELFINA AVILA Rep #: [id number] : 1935 F 88 From: Servando Alfred MD PCP: Dr. Sukumar Camargo DO Status: REG ER Study: Spine Cervical without Contras Date of Exam: 0 11/06/23 Exam# [id number] Ordering Dr: Kacey Wayne [id number] INDICATION: head injury, neck pain EXAMINATION: CT [...] 16:03 EDT Reading Location ID and State: [facility] [place] Tel , Service support , CC: Dr. Sukumar Camargo DO; VINCE Weston Boxing Machine Operator: Signed Normal [facility] KOEN + Protein Elect, Serumon 09-09-2023 Albumin [Mass/Vol] 3.7 g/dL Normal 2.9-4.4 [facility] Comment on above: Order Comment: N Performed By: #### L 3100.3425 #### [facility] [place], [address] Albumin/Globulin [Mass ratio] 1.2 {ratio} Normal 0.7-1.7 [facility] Comment on above: Order Comment: N Performed By: #### L 3099.5 #### [facility] [address] [place], [address] WVPSH-1-QUEU 0.3 g/dL Normal 0.0-0.4 [facility] Comment on above: Order Comment: N Performed By: #### L 3099.3425 #### [facility] [address] [place], [address] RRISF-3-GRWW 0.8 g/dL Normal 0.4-1.0 [facility] Comment on above: Order Comment: N Performed By: #### L 5 #### [facility] [address] [place], [address] BETA GLOBULIN 1.0 g/dL Normal 0.7-1.3 [facility] Comment on above: Order Comment: N Performed By: #### L 5 #### [facility] [address] [place], [address] GAMMA GLOBULIN 1.1 g/dL Normal 0.4-1.8 [facility] Comment on above: Order Comment: N Performed By: #### L 5 #### [facility] [address] [place], [address] Globulin (S) [Mass/Vol] 3.2 g/dL Normal 2.2-3.[address] [facility] Comment on above: Order Comment: N Performed By: #### L 5 #### [facility] [address] [place], [address] KEON RESULT,S Comment Abnormal . [facility] Comment on above: Order Comment: N Result Comment: Immu nofixation shows IgG monoclonal protein with lambda light chain specificity. Performed By: #### L 342 #### [facility] [address] [place], [address] IMMUNOGLOB A QN 245 mg/dL Normal 64-422 [facility] Comment on above: Order Comment: N Performed By: #### L 3099.3425 #### [facility] [address] [place], [address] IMMUNOGLOB G QN 1189 mg/dL Normal 586-1602 [facility] Comment on above: Order Comment: N Performed By: #### L 3099.3425 #### [facility] [address] [place], [address] IMMUNOGLOB M QN 21 mg/dL Low 26-217 [facility] Comment on above: Order Comment: N Result Comment: Resu lt confirmed on concentration. Performed By: #### L 3099.3425 #### [facility] [address] [place], [address] M-Juan 0.2 g/dL Abnormal Not Observed [facility] Comment on above: Order Comment: N Performed By: #### L 3099.3425 #### [facility] [address] [place], [address] NOTE: Comment Normal . [facility] Comment on above: Order Comment: N Result Comment: Prot ein electrophoresis scan will follow via computer, mail, or construction code administrator delivery. Performed at: [address] [id number] Instrument Repair Technician: Gray Mcallister PhD, Phone: [phone] Performed By: #### L 0.3425 #### [facility] [address] [place], [address] Protein [Mass/Vol] 6.9 g/dL Normal 6.0-8.5 [facility] Comment on above: Order Comment: N Performed By: #### L 3099.3425 #### [facility] [address] [place], [address] Cardiology Visit Reporton Cardiology Visit Report [facility] [address] [place] [address] OFFICE VISIT Date of Service: 09/08/23 MR#: [id number] Acct: [id number] Name: DELFINA AVILA Rep #: [id number] : 1935 Provider: ANGIE reese Age/Sex: 88/F Location: [facility] Status: Signed HPI HPI History of Present Illness Details: DELFINA AVILA, is a 88 F who presents to the office today for cardiovascular follow-up. 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 She also has a history of hypertension and diabetes. She resides in [facility]. She denies chest, arm, jaw, [...] NIBP Intake Visit Reasons: 1 Y FU Cardiac/Vascular Sonographer Required: No Is patient in pain?: No Allergies amoxicillin Allergy (Unknown, Verified 09/08/23 14:52) Unknown Anesthetics - Amide Type - Select A (Anesthetics - Amide Type) Allergy (Verified 09/08/23 14:52) Unknown Anesthetics - Lizzette Type- Parabens (Anesthetics - Lizzette Type) Allergy (Verified 09/08/23 14:52) Unknown Pcueskp-PNP-QpA Reductase Inhibitor (Wscxczs-Mtw-Hqo Reductase Inhibitor) Adverse Reaction (Severe, Verified 09/08/23 [...] mcg PO 09/09/22 09/08/23 History chewable tablet awtcilgk-jjae-mcubt acid 120 tab PO DAILY 01/06/23 09/08/23 [...] Former smoker (more content not included)... Normal [facility] Neurology Visit Reporton Neurology Visit Report [facility] [address] [facility], [address] [place] [address] OFFICE VISIT Date of Service: 09/06/23 MR#: [id number] Acct: [id number] Name: DELFINA AVILA Rep #: [id number] : 1935 Provider: Dr. Pollo rich MD Age/Sex: 88/F Location: [facility] Status: Signed Intake Vital Signs 05/03/23 11:02 [...] Visit Reasons: 4 M FU Chief Complaint: Cardiac/Vascular Sonographer Required: No Accompanied by: Self Allergies amoxicillin Allergy (Unknown, Verified 09/06/23 11:42) Unknown Anesthetics - Amide Type - Select A (Anesthetics - Amide Type) Allergy (Verified 09/06/23 11:42) Unknown Anesthetics - Lizzette Type- Parabens (Anesthetics - Lizzette Type) Allergy (Verified 09/06/23 11:42) Unknown Ozzsrkt-UCV-AcW Reductase Inhibitor (Kwcksjz-Cwo-Vch Reductase Inhibitor) Adverse Reaction (Severe, Verified 09/06/23 11:42) Myalgia Have you fallen in the past year?: No [facility] Medical History Asthma Back pain Colitis Controlled [...] uses hearing aids. She moved to a alf facility in 2022. Physical therapy was of benefit for her gait. She has had improvement of her gait since initiation of carbidopa/levodopa in 2022 and increasing her dose of carbidopa/levodopa earlier in 2023. She uses a rollator. Laboratory evaluation for polyneuropathy revealed an abnormal serum free light chains. A subsequent serum immunofixation in April 2023 revealed t (more content not included)... Normal [facility] No Panel InformationOrdered By: Young Duarte on 07-05-2023 Vitamin D 25-Hydroxy 53.4 ng/mL [facility] Comment on above: Vitamin D 25(OH) Sta tus Range Deficiency <20 ng/mL (50nmol/L) Insufficiency 20 - 30 ng/mL (50 - 75 nmol/L) Sufficiency 30 - 100 ng/mL (75 - 250 nmol/L) Toxicity >100 ng/mL (>250 nmol/L) Basophil percentageOrdered B y: Efrem Augusto on 07-04-2023 Bilirubin [Mass/Vol] 0.70 mg/dL 0.20-1.00 [facility] Comment on above: For patients on eltr ombopag therapy, use of Dimension [place] TBIL is not recommended. Chloride [Moles/Vol] 106 mmol/L 98-107 [facility] Glucose [Mass/Vol] 136 mg/dL 74-106 [facility] Comment on above: Fasting Glucose resu lt greater than or equal to 126 mg/dL suggests DIABETES MELLITUS per A.D.A. criteria. Potassium [Moles/Vol] 3.7 mmol/L 3.5-5.[address] [facility] Protein [Mass/Vol] 7.8 g/dL 6.4-8.2 [facility] Sodium [Moles/Vol] 140 mmol/L 136-145 [facility] Laboratory - Chemistry and C hemistry - challengeOrdered By: Efrem Casas on 07-04-2023 Albumin/Globulin [Mass ratio] 1.1 {ratio} 0.9-2.4 [facility] ALP [Catalytic activity/Vol] 54 U/L 45-117 [facility] ALT [Catalytic activity/Vol] 18 U/L 13-56 [facility] CO2 [Moles/Vol] 29.0 mmol/L 21.0-32.0 [facility] Globulin (S) [Mass/Vol] 3.8 g/dL 2.2-4.[address] [facility] Urea nitrogen/Creatinine [Mass ratio] 34.2 mg/mg 10-20 [facility] No Panel InformationOrdered By: Efrem Casas on 07-04-2023 Estimated GFR (MDRD) Amer 142 mL/min >60 [facility] Comment on above: GFR Calc Estimated GFR (MDRD) Non-Af Amer 117 mL/min >60 [facility] Comment on above: Non- GFR Calc Serum or plasma calcium chelsie urement (mass/volume)Ordered By: Efrem Casas on 07-04-2023 Calcium [Mass/Vol] 9.7 mg/dL 8.5-10.1 [facility] Serum or plasma creatinine m easurement (mass/volume)Ordered By: Efrem Casas on 07-04-2023 Creatinine [Mass/Vol] 0.53 mg/dL 0.55-1.[address] [facility] Comment on above: The validity of the calculated GFR & GFRAA in patients over 70 years has not been determined. Clinical correlation is essential. Serum or plasma urea nitroge n measurement (mass/volume)Ordered By: Efrem Casas on 07-04-2023 Urea nitrogen [Mass/Vol] 18 mg/dL 7-18 [facility] Thin prep Papanicolaou smear with manual screeningOrdered By: Efrem Casas on 07-04-2023 Thin prep Papanicolaou smear with manual screening 4.0 g/dL 3.2-5.0 [facility] Thin prep Papanicolaou smear with manual screening 19 U/L 15-37 [facility] Thin prep Papanicolaou smear with manual screening 5 5-15 [facility] Laboratory - Hematology and Cell countson 06-15-2023 HbA1c (Bld) [Mass fraction] 5.4 % 4.2-6.3 [facility] Albumin Elph [Mass/Vol]Order ed By: Pollo Caal on 05-03-2023 Albumin [Mass/Vol] 4.2 g/dL 2.9-4.4 [facility] Basophil percentageOrdered B y: Pollo Caal on 05-03-2023 Basophil percentage Comment . [facility] Comment on above: No monoclonality det ected.Performed at: [facility] [place] [id number] Director: Gray Mcallister PhD, Phone: [phone] Interpretation of serum or p lasma protein pattern by immunofixation (narrative resultOrdered By: Pollo Caal on 05-03-2023 Protein Fractions Immunofixation Jose Roberto [Interp] Not Observed g/dL Not Observed [facility] No Panel InformationOrdered By: Pollo Caal on 05-03-2023 Addendum Document Comment . [facility] Comment on above: Protein electrophore sis scan will follow via computer,mail, or construction code administrator delivery. Immunoglobulin M 26 mg/dL 26-217 [facility] Comment on above: Result confirmed on concentration. Serum fhyld-0-yznbodzv measu rement by electrophoresisOrdered By: Pollo Caal on 05-03-2023 Alpha 1 globulin Elph [Mass/Vol] 0.4 g/dL 0.0-0.4 [facility] Alpha 1 globulin Elph [Mass/Vol] 0.8 g/dL 0.4-1.0 [facility] Serum globulin measurement ( mass/volume)Ordered By: Pollo Caal on 05-03-2023 Globulin (S) [Mass/Vol] 3.4 g/dL 2.2-3.9 [facility] Serum or plasma IgA measurem ent (mass/volume)Ordered By: Pollo Caal on 05-03-2023 IgA [Mass/Vol] 301 mg/dL 64-422 [facility] Serum or plasma IgG measurem ent (mass/volume)Ordered By: Pollo Caal on 05-03-2023 IgG [Mass/Vol] 1385 mg/dL [id number] [facility] Serum or plasma beta globuli n measurement by electrophoresis (mass/volume)Ordered By: Pollo Caal on 05-03-2023 Beta globulin Elph [Mass/Vol] 1.1 g/dL 0.7-1.3 [facility] Serum or plasma gamma globul in measurement by electrophoresis (mass/volume)Ordered By: Pollo Caal on 05-03-2023 Gamma globulin Elph [Mass/Vol] 1.0 g/dL 0.4-1.8 [facility] Serum or plasma immunoelectr ophoresis interpretation (nominal result)Ordered By: Pollo Caal on 05-03-2023 Interpretation IEP [Interp] Comment: . [facility] Comment on above: Presence of monoclon al protein is unclear at this time. Suggestrepeat in 3 to 6 months if clinically indicated. Thin prep Papanicolaou smear with manual screeningOrdered By: Pollo Caal on 05-03-2023 Thin prep Papanicolaou smear with manual screening 1.3 0.7-1.7 [facility] Total protein bloodOrdered B y: Pollo Caal on 05-03-2023 Protein [Mass/Vol] 7.6 g/dL 6.0-8.5 [facility] Basophil percentageOrdered B y: Sukumar Raman on 03-24-2023 Cholesterol [Mass/Vol] 242 mg/dL <200 [facility] Comment on above: <200 mg/dL Desirable 200-240 mg/dL Borderline >240 mg/dL High Risk Triglyceride [Mass/Vol] 188 mg/dL <199 [facility] Comment on above: The drugs N-Acetylcy steine and Metamizole may falsely depress this assay.Serum Triglycerides Reference Interval Normal <150 mg/dL Borderline high 150 - 199 mg/dL High 200 - 499 mg/dL Very High > or = 500 mg/dL Laboratory - Chemistry and C hemistry - challengeOrdered By: Sukumar Camargo on 03-24-2023 Free T4 [Mass/Vol] 1.13 ng/dL 0.76-1.46 [facility] No Panel InformationOrdered By: Sukumar Camargo on 03-24-2023 Thyroid Stimulating Hormone (TSH) 2.34 uIU/mL 0.358-3.74 [facility] Serum or plasma cholesterol in HDL measurement (mass/volume)Ordered By: Sukumar Camargo on 03-24-2023 Cholesterol in HDL [Mass/Vol] 71 mg/dL >40 [facility] Comment on above: The drugs N-Acetylcy steine and Metamizole may falsely depress this assay. Reference Range HDL <40 mg/dL Low HDL Cholesterol HDL >or= 60 mg/dL High HDL Cholesterol Serum or plasma cholesterol in VLDL measurement (mass/volume)Ordered By: Sukumar Camargo on 03-24-2023 Cholesterol in VLDL [Mass/Vol] 38 mg/dL 5-40 [facility] Serum or plasma low density lipoprotein (LDL) cholesterol measurement (mass/volume)Ordered By: Sukumar Camargo on 03-24-2023 Cholesterol in LDL [Mass/Vol] 133 mg/dL 0-130 [facility] Whole blood hemoglobin A1c/t otal hemoglobin ratio (mass fraction)Ordered By: Sukumar Camargo on 03-24-2023 HbA1c (Bld) [Mass fraction] 5.4 % 3.8-5.6 [facility] Comment on above: Normal < 5.7 % Predi abetic 5.7 - 6.4 % Diabetic >or= 6.5 % Please note range changes. Basophil percentageOrdered B y: Pollo Caal on 01-06-2023 Bilirubin [Mass/Vol] 0.40 mg/dL 0.20-1.00 [facility] Comment on above: For patients on eltr ombopag therapy, use of Dimension [place] TBIL is not recommended. Chloride [Moles/Vol] 104 mmol/L 98-107 [facility] Glucose [Mass/Vol] 92 mg/dL 74-106 [facility] Potassium [Moles/Vol] 4.1 mmol/L 3.5-5.[address] [facility] Protein [Mass/Vol] 7.7 g/dL 6.4-8.2 [facility] Sodium [Moles/Vol] 139 mmol/L 136-145 [facility] WBC (Bld) [#/Vol] 7.3 10*3/uL 4.4-11.0 [facility] Blood erythrocytes count (nu mber/volume)Ordered By: Pollo Caal on 01-06-2023 RBC (Bld) [#/Vol] 4.50 10*6/uL 4.2-5.4 [facility] Blood hemoglobin measurement (mass/volume)Ordered By: Pollo Caal on 01-06-2023 Hemoglobin (Bld) [Mass/Vol] 12.9 g/dL 12.0-15.0 [facility] Blood platelet mean volumeOr dered By: Pollo Caal on 01-06-2023 Platelet mean volume (Bld) [Entitic vol] 9.7 fL 6.2-12.0 [facility] Determination of erythrocyte mean corpuscular volume (MCV)Ordered By: Pollo Caal on 01-06-2023 MCV (RBC) [Entitic vol] 92.2 fL 81-99 [facility] Hematocrit Auto (Bld) [Volum e fraction]Ordered By: Pollo Caal on 01-06-2023 Hematocrit (Bld) [Volume fraction] 41.5 % 37-47 [facility] Laboratory - Chemistry and C hemistry - challengeOrdered By: Polloceleste Caal on 01-06-2023 ALP [Catalytic activity/Vol] 54 U/L 45-117 [facility] ALT [Catalytic activity/Vol] 25 U/L 13-56 [facility] CO2 [Moles/Vol] 28.0 mmol/L 21.0-32.0 [facility] Cobalamin (Vitamin B12) [Mass/Vol] 1420 pg/mL 211-911 [facility] Free T4 [Mass/Vol] 1.11 ng/dL 0.76-1.46 [facility] Globulin (S) [Mass/Vol] 3.9 g/dL 2.2-4.2 [facility] Urea nitrogen/Creatinine [Mass ratio] 39.7 mg/mg 10-20 [facility] Laboratory - Hematology and Cell countsOrdered By: Pollo Caal on 01-06-2023 Erythrocyte distribution width (RBC) [Entitic vol] 45.8 fL 35.1-43.9 [facility] Erythrocyte distribution width (RBC) [Ratio] 13.5 % 11.6-14.6 [facility] MCH (RBC) [Entitic mass] 28.7 pg 27.0-32.0 [facility] MCHC Auto (RBC) [Mass/Vol]Or dered By: Pollo Caal on 01-06-2023 MCHC (RBC) [Mass/Vol] 31.1 g/dL 32-[address] [facility] No Panel InformationOrdered By: Pollo Caal on 01-06-2023 Estimated GFR (MDRD) Amer 158 mL/min >60 [facility] Comment on above: GFR Calc Estimated GFR (MDRD) Non-Af Amer 131 mL/min >60 [facility] Comment on above: Non- GFR Calc Free Lambda Light Chains, Quant 16.4 mg/L 5.7-26.3 [facility] Thyroid Stimulating Hormone (TSH) 7.94 uIU/mL 0.358-3.74 [facility] Whole Blood Vitamin B1 Level 124.8 nmol/L 66.5-200.0 [facility] Comment on above: Performed at: - [address] [id number] Director: Gray Mcallister PhD, Phone: [phone] at: - [facility] [id number] Director: Paradise Sargent MD, Phone: [phone] Platelets bldOrdered By: All Caal on 01-06-2023 Platelets (Bld) [#/Vol] 295 10*3/uL 150-450 [facility] Serum immunoglobulin kappa l ight chains/immunoglobulin lambda light chains mass ratioOrdered By: Pollo Caal on 01-06-2023 Immunoglobulin light chains.kappa/Immunoglobu yash light chains.lambda (S) [Mass ratio] 2.01 0.26-1.65 [facility] Serum or plasma albumin chelsie urement (mass/volume)Ordered By: Pollo Caal on 01-06-2023 Albumin [Mass/Vol] 3.8 g/dL 3.2-5.0 [facility] Serum or plasma albumin/glob ulin mass ratioOrdered By: Pollo Caal on 01-06-2023 Albumin/Globulin [Mass ratio] 1.0 {ratio} 0.9-2.4 [facility] Serum or plasma calcium chelsie urement (mass/volume)Ordered By: Pollo Caal on 01-06-2023 Calcium [Mass/Vol] 9.3 mg/dL 8.5-10.1 [facility] Serum or plasma creatinine m easurement (mass/volume)Ordered By: Pollo Caal 01-06-2023 Creatinine [Mass/Vol] 0.48 mg/dL 0.55-1.[address] [facility] Comment on above: The validity of the calculated GFR & GFRAA in patients over 70 years has not been determined. Clinical correlation is essential. Serum or plasma folate measu rement (mass/volume)Ordered By: Pollo Caal on 01-06-2023 Folate [Mass/Vol] 36.10 ng/mL 3.1-55.4 [facility] Comment on above: Slight Hemolysis, Re sult may be falsely increased. Serum or plasma immunoglobul in kappa light chains measurement (mass/volume)Ordered By: Pollo Caal on 01-06-2023 Immunoglobulin light chains.kappa [Mass/Vol] 32.9 mg/L 3.3-19.4 [facility] Serum or plasma urea nitroge n measurement (mass/volume)Ordered By: Pollo Caal 01-06-2023 Urea nitrogen [Mass/Vol] 19 mg/dL 7-18 [facility] Thin prep Papanicolaou smear with manual screeningOrdered By: Pollo Caal 01-06-2023 Thin prep Papanicolaou smear with manual screening 17 U/L 15-37 [facility] Thin prep Papanicolaou smear with manual screening 7 5-15 [facility] Bilirubin Test strip Ql (U)O rdered By: Sukumar Camargo on 11-24-2022 Bilirubin Ql (U) Negative Negative [facility] Culture, urineOrdered By: Akbar Camargo on 11-24-2022 Bacteria identified Cx Nom (U) Mixed Gram Pos & Gram Neg Org [facility] Ketones Test strip Ql (U)Ord ered By: Sukumar Camargo on 11-24-2022 Ketones Ql (U) 5 mg/dl Negative [facility] Nitrite Test strip Ql (U)Ord ered By: Sukumar Camargo on 11-24-2022 Nitrite Ql (U) Negative Negative [facility] Protein Test strip Ql (U)Ord ered By: Sukumar Camargo on 11-24-2022 Protein Ql (U) 15 mg/dl Negative [facility] Urine blood detectionOrdered By: Sukumar Camargo on 11-24-2022 RBC Ql (U) 25 /ul Negative [facility] Urine clarityOrdered By: Janeth Camargo on 11-24-2022 Clarity (U) Cloudy Clear [facility] Urine color determinationOrd ered By: Sukumar Camargo on 11-24-2022 Color (U) Yellow Yellow [facility] Urine glucose detectionOrder ed By: Sukumar Camargo on 11-24-2022 Glucose Ql (U) Normal mg/dl Normal [facility] Urine leukocyte esterase det ection by dipstickOrdered By: Sukumar Camargo on 11-24-2022 Leukocyte esterase Test strip Ql (U) Negative Negative [facility] Urine pHOrdered By: Sukumar bethea on 11-24-2022 pH (U) 6.0 [pH] 5.0 - 8.0 [facility] Urine specific gravity measu rementOrdered By: Sukumar Camargo on 11-24-2022 Specific gravity (U) [Rel density] 1.025 1.002-1.03 0 [facility] Urobilinogen Auto test strip Ql (U)Ordered By: Sukumar Camargo on 11-24-2022 Urobilinogen Ql (U) Normal mg/dl Normal [facility] Culture, urineOrdered By: Akbar Camargo on 05-28-2022 Bacteria identified Cx Nom (U) Escherichia coli [facility] Basophil percentageOrdered B y: Sukumar Camargo on 05-26-2022 Basophil percentage 0-5 SEEN /hpf 0-5 [facility] Bilirubin Test strip Ql (U)O rdered By: Sukumar Camargo on 05-26-2022 Bilirubin Ql (U) Negative Negative [facility] Ketones Test strip Ql (U)Ord ered By: Sukumar Camargo on 05-26-2022 Ketones Ql (U) Negative Negative [facility] Mucus LM Ql (Urine sed)Order ed By: Sukumar Camargo on 05-26-2022 Mucus Ql (Urine sed) 0 SEEN /hpf [facility] Nitrite Test strip Ql (U)Ord ered By: Sukumar Camargo on 05-26-2022 Nitrite Ql (U) Positive Negative [facility] Protein Test strip Ql (U)Ord ered By: Sukumar Camargo on 05-26-2022 Protein Ql (U) Negative Negative [facility] Squamous epithelial cells de tection in urine sediment by light microscopyOrdered By: Sukumar Camargo on 05-26-2022 Epithelial cells.squamous LM Ql (Urine sed) 0-5 SEEN /hpf 5-10 [facility] Urine blood detectionOrdered By: Sukumar Camargo on 05-26-2022 RBC Ql (U) Negative Negative [facility] RBC Ql (U) 0 SEEN /hpf 0-5 [facility] Urine clarityOrdered By: Janeth Camargo on 05-26-2022 Clarity (U) Clear Clear [facility] Urine color determinationOrd ered By: Sukumar Camargo on 05-26-2022 Color (U) Yellow Yellow [facility] Urine glucose detectionOrder ed By: Sukumar Camargo on 05-26-2022 Glucose Ql (U) Normal mg/dl Normal [facility] Urine leukocyte esterase det ection by dipstickOrdered By: Sukumar Camargo on 05-26-2022 Leukocyte esterase Test strip Ql (U) 25 /ul Negative [facility] Urine pHOrdered By: Sukumar bethea on 05-26-2022 pH (U) 6.5 [pH] 5.0 - 8.0 [facility] Urine sediment bacteria coun t by microscopy (number/high power field)Ordered By: Sukumar Camargo on 05-26-2022 Bacteria LM.HPF (Urine sed) [#/Area] 2 /[HPF] None Seen [facility] Urine specific gravity measu rementOrdered By: Sukumar Camargo on 05-26-2022 Specific gravity (U) [Rel density] 1.010 1.002-1.03 0 [facility] Urobilinogen Auto test strip Ql (U)Ordered By: Sukumar Camargo on 05-26-2022 Urobilinogen Ql (U) Normal mg/dl Normal [facility] Absolute lymphocyte countOrd ered By: Dr. Ortiz on 02-25-2022 Lymphocytes Auto (Unsp spec) [#/Vol] 1.30 10*3/uL 0.83-4.51 [facility] Basophil percentageOrdered B y: Dr. Ortiz on 02-25-2022 Basophils/100 WBC (Bld) 1.1 % 0-1 [facility] Chloride [Moles/Vol] 107 mmol/L 98-107 [facility] Eosinophils/100 WBC (Bld) 5.1 % 0-5 [facility] Glucose [Mass/Vol] 88 mg/dL 74-106 [facility] Neutrophils (Bld) [#/Vol] 1.9 10*3/uL 2.0-7.7 [facility] Neutrophils/100 WBC (Bld) 50.0 % 47-70 [facility] Potassium [Moles/Vol] 3.7 mmol/L 3.5-5.[address] [facility] Sodium [Moles/Vol] 141 mmol/L 136-145 [facility] WBC (Bld) [#/Vol] 3.7 10*3/uL 4.4-11.0 [facility] Blood erythrocytes count (nu mber/volume)Ordered By: Dr. Ortiz on 02-25-2022 RBC (Bld) [#/Vol] 4.33 10*6/uL 4.2-5.4 [facility] Blood hemoglobin measurement (mass/volume)Ordered By: Dr. Ortiz on 02-25-2022 Hemoglobin (Bld) [Mass/Vol] 12.4 g/dL 12.0-15.0 [facility] Blood lymphocytes/100 leukoc ytesOrdered By: Dr. Ortiz on 02-25-2022 Lymphocytes/100 WBC (Bld) 35.1 % 19-41 [facility] Blood monocytes/100 leukocyt esOrdered By: Dr. Ortiz on 02-25-2022 Monocytes/100 WBC (Bld) 8.4 % 0-10 [facility] Blood platelet mean volumeOr dered By: Dr. Ortiz on 02-25-2022 Platelet mean volume (Bld) [Entitic vol] 9.2 fL 6.2-12.0 [facility] COVID-19 virus antigen assay Ordered By: Dr. Ortiz on 02-25-2022 SARS-CoV-2 (COVID-19) Ag IA.rapid Ql (Resp) [facility] Determination of erythrocyte mean corpuscular volume (MCV)Ordered By: Dr. Ortiz on 02-25-2022 MCV (RBC) [Entitic vol] 88.7 fL 81-99 [facility] Hematocrit Auto (Bld) [Volum e fraction]Ordered By: Dr. Ortiz on 02-25-2022 Hematocrit (Bld) [Volume fraction] 38.4 % 37-47 [facility] Laboratory - Chemistry and C hemistry - challengeOrdered By: Dr. Ortiz on 02-25-2022 CO2 [Moles/Vol] 29.0 mmol/L 21.0-32.0 [facility] Urea nitrogen/Creatinine [Mass ratio] 50.6 mg/mg 10-20 [facility] Laboratory - Hematology and Cell countsOrdered By: Dr. Ortiz on 02-25-2022 Erythrocyte distribution width (RBC) [Entitic vol] 42.6 fL 35.1-43.9 [facility] Erythrocyte distribution width (RBC) [Ratio] 13.1 % 11.6-14.6 [facility] Immature granulocytes/100 WBC (Bld) 0.300 % 0.0-0.9 [facility] Comment on above: IG% - Immature Granu locytes (promyelocytes, myelocytes and metamyelocytes) > 1% indicates that a LEFT SHIFT is Present. MCH (RBC) [Entitic mass] 28.6 pg 27.0-32.0 [facility] Nucleated RBC/100 WBC (Bld) [Ratio] 0 % 0-5 [facility] Auto (RBC) [Mass/Vol]Or dered By: Dr. Ortiz on 02-25-2022 MCHC (RBC) [Mass/Vol] 32.3 g/dL 32-[address] [facility] No Panel InformationOrdered By: Dr. Ortiz on 02-25-2022 Estimated Creatinine Clearance Calc 36.16 ml/min [facility] Estimated GFR (MDRD) Amer 187 mL/min >60 [facility] Comment on above: GFR Calc Estimated GFR (MDRD) Non-Af Amer 155 mL/min >60 [facility] Comment on above: Non- GFR Calc Platelets bldOrdered By: Dr. Ortiz on 02-25-2022 Platelets (Bld) [#/Vol] 278 10*3/uL 150-450 [facility] Serum or plasma calcium chelsie urement (mass/volume)Ordered By: Dr. Ortiz on 02-25-2022 Calcium [Mass/Vol] 9.7 mg/dL 8.5-10.1 [facility] Serum or plasma creatinine m easurement (mass/volume)Ordered By: Dr. Ortiz on 02-25-2022 Creatinine [Mass/Vol] 0.42 mg/dL 0.55-1.[address] [facility] Comment on above: The validity of the calculated GFR & GFRAA in patients over 70 years has not been determined. Clinical correlation is essential. Serum or plasma urea nitroge n measurement (mass/volume)Ordered By: Dr. Ortiz on 02-25-2022 Urea nitrogen [Mass/Vol] 21 mg/dL 7-18 [facility] Thin prep Papanicolaou smear with manual screeningOrdered By: Dr. Ortiz on 02-25-2022 Thin prep Papanicolaou smear with manual screening 5 5-15 [facility] Basophil percentageOrdered B y: Dr. Plummer on 02-21-2022 Basophil percentage 2.1 mg/dL 2.5-4.9 [facility] Bilirubin [Mass/Vol] 1.10 mg/dL 0.20-1.00 [facility] Comment on above: For patients on eltr ombopag therapy, use of Dimension [place] TBIL is not recommended. Protein [Mass/Vol] 6.2 g/dL 6.4-8.2 [facility] Laboratory - Chemistry and C hemistry - challengeOrdered By: Dr. Plummer on 02-21-2022 ALP [Catalytic activity/Vol] 103 U/L 45-117 [facility] ALT [Catalytic activity/Vol] 94 U/L 13-56 [facility] Globulin (S) [Mass/Vol] 3.4 g/dL 2.2-4.2 [facility] Magnesium [Mass/Vol] 2.0 mg/dL 1.6-2.6 [facility] No Panel InformationOrdered By: Dr. Plummer on 02-21-2022 Thyroid Stimulating Hormone (TSH) 0.49 uIU/mL 0.358-3.74 [facility] Serum or plasma albumin chelsie urement (mass/volume)Ordered By: Dr. Plummer on 02-21-2022 Albumin [Mass/Vol] 2.8 g/dL 3.2-5.0 [facility] Serum or plasma albumin/glob ulin mass ratioOrdered By: Dr. Plummer on 02-21-2022 Albumin/Globulin [Mass ratio] 0.8 {ratio} 0.9-2.4 [facility] Thin prep Papanicolaou smear with manual screeningOrdered By: Dr. Plummer on 02-21-2022 Thin prep Papanicolaou smear with manual screening 174 U/L 15-37 [facility] Absolute lymphocyte counton 02-20-2022 Lymphocytes Auto (Unsp spec) [#/Vol] 1.29 10*3/uL 0.83-4.51 [facility] Work Phone: [phone] Basophil percentageOrdered B y: Dr. Bañuelos on 02-20-2022 Basophil percentage 0-5 SEEN /hpf 0-5 [facility] Basophil percentageon 2021 Basophils/100 WBC (Bld) 0.2 % 0-1 [facility] Work Phone: [phone] Chloride [Moles/Vol] 107 mmol/L 98-107 [facility] Work Phone: Eosinophils/100 WBC (Bld) 0.4 % 0-5 [facility] Work Phone: [phone] Glucose [Mass/Vol] 105 mg/dL 74-106 [facility] Work Phone: [phone] Comment on above: Fasting Glucose resu lt from 100 to 125 mg/dL suggests IMPAIRED HOMEOSTASIS per A.D.A. criteria. Neutrophils (Bld) [#/Vol] 6.4 10*3/uL 2.0-7.7 [facility] Work Phone: [phone] Neutrophils/100 WBC (Bld) 77.2 % 47-70 [facility] Work Phone: Potassium [Moles/Vol] 3.4 mmol/L 3.5-5.[address] [facility] Work Phone: Sodium [Moles/Vol] 139 mmol/L 136-145 [facility] Work Phone: [phone] WBC (Bld) [#/Vol] 8.3 10*3/uL 4.4-11.0 [facility] Work Phone: [phone] Bilirubin Test strip Ql (U)O rdered By: Dr. Bañuelos on 02-20-2022 Bilirubin Ql (U) Negative Negative [facility] Blood erythrocytes count (nu mber/volume)on 02-20-2022 RBC (Bld) [#/Vol] 4.08 10*6/uL 4.2-5.4 [facility] Work Phone: [phone] Blood hemoglobin measurement (mass/volume)on 02-20-2022 Hemoglobin (Bld) [Mass/Vol] 11.9 g/dL 12.0-15.0 [facility] Work Phone: Blood lymphocytes/100 leukoc yteson 02-20-2022 Lymphocytes/100 WBC (Bld) 15.5 % 19-41 [facility] Work Phone: Blood monocytes/100 leukocyt eson 02-20-2022 Monocytes/100 WBC (Bld) 6.5 % 0-10 [facility] Work Phone: Blood platelet mean volumeon 02-20-2022 Platelet mean volume (Bld) [Entitic vol] 9.3 fL 6.2-12.0 [facility] Work Phone: Determination of erythrocyte mean corpuscular volume (MCV)on 02-20-2022 MCV (RBC) [Entitic vol] 87.3 fL 81-99 [facility] Work Phone: [phone] Hematocrit Auto (Bld) [Volum e fraction]on 02-20-2022 Hematocrit (Bld) [Volume fraction] 35.6 % 37-47 [facility] Work Phone: [phone] Ketones Test strip Ql (U)Ord ered By: Dr. Bañuelos on 02-20-2022 Ketones Ql (U) 5 mg/dl Negative [facility] Laboratory - Chemistry and C hemistry - challengeOrdered By: Dr. Plummer on 02-20-2022 CK [Catalytic activity/Vol] 121 U/L 26-192 [facility] Laboratory - Chemistry and C hemistry - challengeon 02-20-2022 CO2 [Moles/Vol] 29.0 mmol/L 21.0-32.0 [facility] Work Phone: [phone] Urea nitrogen/Creatinine [Mass ratio] 42.0 mg/mg 10-20 [facility] Work Phone: Laboratory - Hematology and Cell countson 02-20-2022 Erythrocyte distribution width (RBC) [Entitic vol] 41.2 fL 35.1-43.9 [facility] Work Phone: [phone] Erythrocyte distribution width (RBC) [Ratio] 13.1 % 11.6-14.6 [facility] Work Phone: [phone] Immature granulocytes/100 WBC (Bld) 0.200 % 0.0-0.9 [facility] Work Phone: [phone] Comment on above: IG% - Immature Granu locytes (promyelocytes, myelocytes and metamyelocytes) > 1% indicates that a LEFT SHIFT is Present. MCH (RBC) [Entitic mass] 29.2 pg 27.0-32.0 [facility] Work Phone: [phone] Nucleated RBC/100 WBC (Bld) [Ratio] 0 % 0-5 [facility] Work Phone: [phone] MCHC Auto (RBC) [Mass/Vol]on 02-20-2022 MCHC (RBC) [Mass/Vol] 33.4 g/dL 32-[address] [facility] Work Phone: Mucus LM Ql (Urine sed)Order ed By: Dr. Bañuelos on 02-20-2022 Mucus Ql (Urine sed) 0 SEEN /hpf [facility] Nitrite Test strip Ql (U)Ord ered By: Dr. Bañuelos on 02-20-2022 Nitrite Ql (U) Negative Negative [facility] No Panel Informationon 02-20 Estimated Creatinine Clearance Calc 33.12 ml/min [facility] Work Phone: Estimated GFR (MDRD) Amer 206 mL/min >60 [facility] Work Phone: Comment on above: GFR Calc Estimated GFR (MDRD) Non-Af Amer 171 mL/min >60 [facility] Work Phone: Comment on above: Non- GFR Calc No Panel InformationOrdered By: Dr. Bañuelos on 02-20-2022 Troponin I High Sensitivity 37 pg/mL 3.0-54.0 [facility] Comment on above: Please Note: New Yesenia t Units and Gender Specific Reference Ranges. For more information see Policy Stat Procedure [place] High Sensitivity Troponin (TNIH) and attachments. Platelets bldon 02-20-2022 Platelets (Bld) [#/Vol] 228 10*3/uL 150-450 [facility] Work Phone: Protein Test strip Ql (U)Ord ered By: Dr. Bañuelos on 02-20-2022 Protein Ql (U) Negative Negative [facility] Serum or plasma calcium chelsie urement (mass/volume)on 02-20-2022 Calcium [Mass/Vol] 8.9 mg/dL 8.5-10.1 [facility] Work Phone: Serum or plasma creatinine m easurement (mass/volume)on 02-20-2022 Creatinine [Mass/Vol] 0.38 mg/dL 0.55-1.[address] [facility] Work Phone: Comment on above: The validity of the calculated GFR & GFRAA in patients over 70 years has not been determined. Clinical correlation is essential. Serum or plasma urea nitroge n measurement (mass/volume)on 02-20-2022 Urea nitrogen [Mass/Vol] 16 mg/dL 7-18 [facility] Work Phone: Squamous epithelial cells de tection in urine sediment by light microscopyOrdered By: Dr. Bañuelos on 02-20-2022 Epithelial cells.squamous LM Ql (Urine sed) 0 SEEN /hpf 5-10 [facility] Thin prep Papanicolaou smear with manual screeningon 02-20-2022 Thin prep Papanicolaou smear with manual screening 3 5-15 [facility] Work Phone: Urine blood detectionOrdered By: Dr. Bañuelos on 02-20-2022 RBC Ql (U) 50 /ul Negative [facility] RBC Ql (U) 0-5 SEEN /hpf 0-5 [facility] Urine clarityOrdered By: Dr. Bañuelos on 02-20-2022 Clarity (U) Sl. Cloudy Clear [facility] Urine color determinationOrd ered By: Dr. Bañuelos on 02-20-2022 Color (U) Yellow Yellow [facility] Urine glucose detectionOrder ed By: Dr. Bañuelos on 02-20-2022 Glucose Ql (U) Normal mg/dl Normal [facility] Urine leukocyte esterase det ection by dipstickOrdered By: Dr. Bañuelos on 02-20-2022 Leukocyte esterase Test strip Ql (U) 25 /ul Negative [facility] Urine pHOrdered By: Dr. Hunter lu on 02-20-2022 pH (U) 7.0 [pH] 5.0 - 8.0 [facility] Urine sediment bacteria coun t by microscopy (number/high power field)Ordered By: Dr. Bañuelos on 02-20-2022 Bacteria LM.HPF (Urine sed) [#/Area] 2 /[HPF] None Seen [facility] Urine specific gravity measu rementOrdered By: Dr. Bañuelos on 02-20-2022 Specific gravity (U) [Rel density] 1.005 1.002-1.03 0 [facility] Urobilinogen Auto test strip Ql (U)Ordered By: Dr. Bañuelos on 02-20-2022 Urobilinogen Ql (U) Normal mg/dl Normal [facility] No Panel Informationon 01-07 Ionized Calcium 5.8 mg/dL 4.5-5.6 [facility] Work Phone: Comment on above: Performed at: [facility], Mobile [address] [id number] Director: Gray Mcallister PhD, Phone: [phone] Miscellaneous Test See comment [facility] Work Phone: Comment on above: TEST RESULT LIMITSPT HrP (PTH-Related Peptide)PTHrP (PTH-Related Peptide) <2.0 pmol/LThis test was developed and its performance characteristicsdetermined by [employer]. It has not been cleared or approvedby the Food and Drug Administration.Reference Range:All Ages: <2.0The PTHrP assay should not be used to exclude cancer orscreen tumor patients for humoral hypercalcemia ofmalignancy (HHM). The results should always be assessed inconjunction with the patient's medical history, clinicalexamination, and other findings. If test results areclinically discordant, please contact the laboratory. TESTING PERFORMED AT [facility]. ORIGINAL REPORT ON FILE IN LAB CONTAINS ADDITIONAL TEST SITE INFORMATION. Parathyroid Hormone (Intact) 45.3 pg/mL 18.4-80.1 [facility] Work Phone: Serum or plasma calcium chelsie urement (mass/volume)on 01-07-2022 Calcium [Mass/Vol] 9.9 mg/dL 8.5-10.1 [facility] Work Phone: Basophil percentageon 2021 Bilirubin [Mass/Vol] 0.60 mg/dL 0.20-1.00 [facility] Work Phone: Comment on above: For patients on eltr ombopag therapy, use of Dimension [place] TBIL is not recommended. Chloride [Moles/Vol] 104 mmol/L 98-107 [facility] Work Phone: Glucose [Mass/Vol] 112 mg/dL 74-106 [facility] Work Phone: Comment on above: Fasting Glucose resu lt from 100 to 125 mg/dL suggests IMPAIRED HOMEOSTASIS per A.D.A. criteria. Potassium [Moles/Vol] 4.7 mmol/L 3.5-5.[address] [facility] Work Phone: Comment on above: Slight Hemolysis, Re sult may be falsely increased. Protein [Mass/Vol] 8.3 g/dL 6.4-8.2 [facility] Work Phone: Sodium [Moles/Vol] 140 mmol/L 136-145 [facility] Work Phone: Laboratory - Chemistry and C hemistry - challengeon 12-31-2021 ALP [Catalytic activity/Vol] 73 U/L 45-117 [facility] Work Phone: ALT [Catalytic activity/Vol] 30 U/L 13-56 [facility] Work Phone: CO2 [Moles/Vol] 27.0 mmol/L 21.0-32.0 [facility] Work Phone: Free T4 [Mass/Vol] 1.04 ng/dL 0.76-1.46 [facility] Work Phone: [phone] Globulin (S) [Mass/Vol] 3.9 g/dL 2.2-4.2 [facility] Work Phone: Urea nitrogen/Creatinine [Mass ratio] 42.3 mg/mg 12-31 [facility] Work Phone: No Panel Informationon 12-31 Estimated GFR (MDRD) Amer 152 mL/min >60 [facility] Work Phone: Comment on above: GFR Calc Estimated GFR (MDRD) Non-Af Amer 126 mL/min >60 [facility] Work Phone: Comment on above: Non- GFR Calc Thyroid Stimulating Hormone (TSH) 8.62 uIU/mL 0.358-3.74 [facility] Work Phone: Vitamin D 25-Hydroxy 35.6 ng/mL [facility] Work Phone: Comment on above: Vitamin D 25(OH) Sta tus Range Deficiency <20 ng/mL (50nmol/L) Insufficiency 20 - 30 ng/mL (50 - 75 nmol/L) Sufficiency 30 - 100 ng/mL (75 - 250 nmol/L) Toxicity >100 ng/mL (>250 nmol/L) Serum or plasma albumin chelsie urement (mass/volume)on 12-31-2021 Albumin [Mass/Vol] 4.4 g/dL 3.2-5.0 [facility] Work Phone: Serum or plasma albumin/glob ulin mass ratioon 12-31-2021 Albumin/Globulin [Mass ratio] 1.1 {ratio} 0.9-2.4 [facility] Work Phone: Serum or plasma calcium chelsie urement (mass/volume)on 12-31-2021 Calcium [Mass/Vol] 10.7 mg/dL 8.5-10.1 [facility] Work Phone: Serum or plasma creatinine m easurement (mass/volume)on 12-31-2021 Creatinine [Mass/Vol] 0.50 mg/dL 0.55-1.[address] [facility] Work Phone: Comment on above: The validity of the calculated GFR & GFRAA in patients over 70 years has not been determined. Clinical correlation is essential. Serum or plasma urea nitroge n measurement (mass/volume)on 12-31-2021 Urea nitrogen [Mass/Vol] 21 mg/dL 7-18 [facility] Work Phone: Thin prep Papanicolaou smear with manual screeningon 10-20-2022 Thin prep Papanicolaou smear with manual screening 29 U/L 15-37 [facility] Work Phone: Comment on above: Slight Hemolysis, Re sult may be falsely increased. Thin prep Papanicolaou smear with manual screening 9 5-15 [facility] Work Phone: LUMBAR SPINE W OBL OR 4 VIEW Son 08-06-2021 LUMBAR SPINE W OBL OR 4 VIEWS STUDY: LUMBAR SPINE W OBL OR 4 VIEWS; 08/06/2021 8:06 am INDICATION: PAIN. COMPARISON: 07/06/2018 ACCESSION NUMBER(S): [id number] ORDERING CLINICIAN: Román Aguirre FINDINGS: Moderate anterior wedging at T12 [...] and L3-4. No instability. Normal [facility] COVID-19 virus antigen assay SARS-CoV-2 (COVID-19) Ag IA.rapid Ql (Resp) [facility] Work Phone: Influenza virus A and B and SARS-CoV-2 (COVID-19) Ag panel - Upper respiratory specim SARS-CoV-2 (COVID-19) RNA UNA+probe Ql (Resp) [facility] Work Phone: Vital Signs Date Time Vital Sign Value Performing Clinician Shreya jordan 07-06-2023 10:52-0400 Diastolic blood pressure 81 mm[Hg] Dr. Sukumar Camargo Work Phone: [facility] 07-06-2023 10:52-0400 Heart rate 58 /min Dr. Sukumar Camargo Work Phone: [facility] 07-06-2023 10:52-0400 Respiratory rate 16 /min Dr. Sukumar Camargo Work Phone: [facility] 07-06-2023 10:52-0400 Systolic blood pressure 171 mm[Hg] Dr. Sukumar Camargo Work Phone: [facility] 07-06-2023 10:00-0400 Body height 162.[address] Sukumar Camargo Work Phone: [facility] 07-06-2023 10:00-0400 Body temperature 96 [degF] Dr. Sukumar Camargo Work Phone: [facility] 06-15-2023 08:56-0400 Body temperature 98.7 [degF] Dr. Sukumar Camargo Work Phone: [facility] 06-15-2023 08:56-0400 Diastolic blood pressure 80 mm[Hg] Dr. Sukumar Camargo Work Phone: [facility] 06-15-2023 08:56-0400 Heart rate 67 /min Dr. Sukumar Camargo Work Phone: [facility] 06-15-2023 08:56-0400 SaO2% (BldA) [Mass fraction] 96 % Dr. Sukumar Camargo Work Phone: [facility] 06-15-2023 08:56-0400 Systolic blood pressure 122 mm[Hg] Dr. Sukumar Camargo Work Phone: [facility] 05-03-2023 11:02-0500 Body height 162.[address] Sukumar Camargo Work Phone: [facility] 05-03-2023 11:02-0500 Body mass index (BMI) [Ratio] 25.9 kg/m2 Dr. Sukumar Camargo Work Phone: [facility] 05-03-2023 11:02-0500 Body temperature 98.2 [degF] Dr. Sukumar Camargo Work Phone: [facility] 05-03-2023 11:02-0500 Body weight 68.[address] Sukumar Camargo Work Phone: [facility] 05-03-2023 11:02-0500 Diastolic blood pressure 100 mm[Hg] Dr. Sukumar Camargo Work Phone: [facility] 05-03-2023 11:02-0500 Heart rate 64 /min Dr. Sukumar Camargo Work Phone: [facility] 05-03-2023 11:02-0500 Respiratory rate 17 /min Dr. Sukumar Camargo Work Phone: [facility] 05-03-2023 11:02-0500 SaO2% (BldA) [Mass fraction] 99 % Dr. Sukumar Camargo Work Phone: [facility] 05-03-2023 11:02-0500 Systolic blood pressure 160 mm[Hg] Dr. Sukumar Camargo Work Phone: [facility] 01-06-2023 08:55-0400 Body height 162.[address] Sukumar Camargo Work Phone: [facility] 01-06-2023 08:55-0400 Body mass index (BMI) [Ratio] 23.8 kg/m2 Dr. Sukumar Camargo Work Phone: [facility] 01-06-2023 08:55-0400 Body temperature 98.6 [degF] Dr. Sukumar Camargo Work Phone: [facility] 01-06-2023 08:55-0400 Body weight 63.[address] Sukumar Camargo Work Phone: [facility] 01-06-2023 08:55-0400 Diastolic blood pressure 86 mm[Hg] Dr. Sukumar Camargo Work Phone: [facility] 01-06-2023 08:55-0400 Heart rate 55 /min Dr. Sukumar Camargo Work Phone: [facility] 01-06-2023 08:55-0400 Respiratory rate 17 /min Dr. Sukumar Camargo Work Phone: [facility] 01-06-2023 08:55-0400 SaO2% (BldA) [Mass fraction] 97 % Dr. Sukumar Camargo Work Phone: [facility] 01-06-2023 08:55-0400 Systolic blood pressure 130 mm[Hg] Dr. Sukumar Camargo Work Phone: [facility] 02-25-2022 15:10-0500 Heart rate 80 /min Dr. Bill Castaneda Work Phone: [facility] 02-25-2022 15:07-0500 Body temperature 98.6 [degF] Dr. Bill Castaneda Work Phone: [facility] 02-25-2022 15:07-0500 Diastolic blood pressure 65 mm[Hg] Dr. iBll Castaneda Work Phone: [facility] 02-25-2022 15:07-0500 Respiratory rate 18 /min Dr. Bill Castaneda Work Phone: [facility] 02-25-2022 15:07-0500 SaO2% (BldA) [Mass fraction] 100 % Dr. Bill Castaneda Work Phone: [facility] 02-25-2022 15:07-0500 Systolic blood pressure 131 mm[Hg] Dr. Bill Castaneda Work Phone: [facility] 02-22-2022 14:00-0500 Body height 162.[address] Bill Castaneda Work Phone: [facility] 02-22-2022 14:00-0500 Body weight 58.[address] Bill Castaneda Work Phone: [facility] 02-20-2022 16:30-0500 Body mass index (BMI) [Ratio] 22.1 kg/m2 Dr. Bill Castaneda Work Phone: [facility] 02-20-2022 16:02-0500 Body temperature 98.7 [degF] Dr. Bill Castaneda Work Phone: [facility] Work Phone: 02-20-2022 16:02-0500 Diastolic blood pressure 69 mm[Hg] Dr. Bill Castaneda Work Phone: [facility] Work Phone: 02-20-2022 16:02-0500 Heart rate 74 /min Dr. Bill Castaneda Work Phone: [facility] Work Phone: 02-20-2022 16:02-0500 Respiratory rate 13 /min Dr. Bill Castaneda Work Phone: [facility] Work Phone: 02-20-2022 16:02-0500 SaO2% (BldA) [Mass fraction] 98 % Dr. Bill Castaneda Work Phone: [facility] Work Phone: 02-20-2022 16:02-0500 Systolic blood pressure 163 mm[Hg] Dr. Bill Castaneda Work Phone: [facility] Work Phone: 02-20-2022 13:18-0500 Body height 157.[address] Bill Castaneda Work Phone: [facility] Work Phone: 02-20-2022 13:18-0500 Body mass index (BMI) [Ratio] 23.6 kg/m2 Dr. Bill Castaneda Work Phone: [facility] Work Phone: 02-20-2022 13:18-0500 Body weight 58.[address] Bill Castaneda Work Phone: [facility] Work Phone: 02-18-2022 11:26-0500 Body temperature 97.9 [degF] Dr. Bill Castaneda Work Phone: [facility] 02-18-2022 11:26-0500 Diastolic blood pressure 76 mm[Hg] Dr. Bill Castaneda Work Phone: [facility] 02-18-2022 11:26-0500 Heart rate 62 /min Dr. Bill Castaneda Work Phone: [facility] 02-18-2022 11:26-0500 Respiratory rate 16 /min Dr. Bill Castaneda Work Phone: [facility] 02-18-2022 11:26-0500 SaO2% (BldA) [Mass fraction] 99 % Dr. Bill Castaneda Work Phone: [facility] 02-18-2022 11:26-0500 Systolic blood pressure 129 mm[Hg] Dr. Bill Castaneda Work Phone: [facility] 02-18-2022 10:36-0500 Body mass index (BMI) [Ratio] 23.3 kg/m2 Dr. Bill Castaneda Work Phone: [facility] 02-18-2022 10:36-0500 Body weight 58.[address] Bill Castaneda Work Phone: [facility] 01-30-2022 10:54-0500 Body mass index (BMI) [Ratio] 23.3 kg/m2 Dr. Bill Castaneda Work Phone: [facility] Work Phone: 01-30-2022 10:54-0500 Body temperature 99.2 [degF] Dr. Bill Castaneda Work Phone: [facility] Work Phone: 01-30-2022 10:54-0500 Body weight 58.[address] Bill Castaneda Work Phone: [facility] Work Phone: 01-30-2022 10:54-0500 Diastolic blood pressure 62 mm[Hg] Dr. Bill Castaneda Work Phone: [facility] Work Phone: 01-30-2022 10:54-0500 Heart rate 85 /min Dr. Bill Castaneda Work Phone: [facility] Work Phone: 01-30-2022 10:54-0500 Respiratory rate 17 /min Dr. Bill Castaneda Work Phone: [facility] Work Phone: 01-30-2022 10:54-0500 SaO2% (BldA) [Mass fraction] 98 % Dr. Bill Castaneda Work Phone: [facility] Work Phone: 01-30-2022 10:54-0500 Systolic blood pressure 104 mm[Hg] Dr. Bill Castaneda Work Phone: [facility] Work Phone: 01-20-2022 13:14-0500 Body mass index (BMI) [Ratio] 26.6 kg/m2 Dr. Bill Castaneda Work Phone: [facility] Work Phone: 01-20-2022 13:14-0500 Body temperature 98.2 [degF] Dr. Bill Castaneda Work Phone: [facility] Work Phone: 01-20-2022 13:14-0500 Body weight 66.[address] Bill Castaneda Work Phone: [facility] Work Phone: 01-20-2022 13:14-0500 Diastolic blood pressure 78 mm[Hg] Dr. Bill Castaneda Work Phone: [facility] Work Phone: 01-20-2022 13:14-0500 Heart rate 75 /min Dr. Bill Castaneda Work Phone: [facility] Work Phone: 01-20-2022 13:14-0500 Respiratory rate 18 /min Dr. Bill Castaneda Work Phone: [facility] Work Phone: 01-20-2022 13:14-0500 SaO2% (BldA) [Mass fraction] 95 % Dr. Bill Castaneda Work Phone: [facility] Work Phone: 01-20-2022 13:14-0500 Systolic blood pressure 154 mm[Hg] Dr. Bill Castaneda Work Phone: [facility] Work Phone: 12-31-2021 15:34-0400 Body temperature 96.4 [degF] Dr. Bill Castaneda Work Phone: [facility] Work Phone: 12-31-2021 15:34-0400 Diastolic blood pressure 88 mm[Hg] Dr. Bill Castaneda Work Phone: [facility] Work Phone: 12-31-2021 15:34-0400 Heart rate 96 /min Dr. Bill Castaneda Work Phone: [facility] Work Phone: 12-31-2021 15:34-0400 Respiratory rate 18 /min Dr. Bill Castaneda Work Phone: [facility] Work Phone: 12-31-2021 15:34-0400 SaO2% (BldA) [Mass fraction] 96 % Dr. Bill Castaneda Work Phone: [facility] Work Phone: 12-31-2021 15:34-0400 Systolic blood pressure 173 mm[Hg] Dr. Bill Castaneda Work Phone: [facility] Work Phone: Encounters Encounter Date Encounter Type Care Provider Facility Start: 06-19-2024 End: 06-19-2024 ambulatory [facility] Facility:[facility] Start: 03-27-2024 ambulatory [facility] Facility:[facility] Start: 03-27-2024 End: 03-27-2024 ambulatory [facility] Facility:[facility] Start: 02-28-2024 End: 02-28-2024 ambulatory Pollo Caal Facility:[facility] Start: 12-22-2023 End: 12-22-2023 ambulatory Sukumar [facility] Facility:[facility] Start: 11-06-2023 End: 11-06-2023 Emergency department patient visit Sandeep Suarez Facility:[facility] Start: 09-08-2023 End: 09-08-2023 ambulatory Sukumar CarvajalRaman Facility:[facility] Start: 09-06-2023 End: 09-06-2023 ambulatory Sukumar CarvajalRaman Facility:[facility] Start: 09-06-2023 End: 09-06-2023 ambulatory Sukumar [facility] Facility:[facility] Start: 07-06-2023 End: 07-06-[address] Sukumar Camargo Work Phone: [facility] Work Phone: Start: 07-06-2023 End: 07-06-[address] Sukumar Camargo Work Phone: [facility] Work Phone: Start: 07-05-[address] Sukumar carlos Work Phone: [facility] Work Phone: Start: 07-05-2023 End: 07-05-2023 ambulatory [facility] Facility:[facility] Start: 07-04-[address] Sukumar carlos Work Phone: [facility] Work Phone: Start: 07-04-2023 End: 07-04-2023 ambulatory Efrem Casas Facility:[facility] Start: 06-15-2023 End: 06-15-[address] Sukumar Camargo Work Phone: [facility] Work Phone: Start: 05-03-2023 End: 05-03-[address] Sukumar Camargo Work Phone: [facility] Work Phone: Start: 05-03-2023 End: 05-03-[address] Sukumar Camargo Work Phone: [facility] Work Phone: Start: 05-03-2023 End: 05-03-[address] Sukumar Camargo Work Phone: [facility] Work Phone: Start: 03-24-2023 End: 03-24-[address] Sukumar Camargo Work Phone: [facility] Start: 01-27-2023 End: 01-27-[address] Sukumar Camargo Work Phone: [facility] Work Phone: Start: 01-06-2023 End: 01-06-[address] Sukumar Camargo Work Phone: [facility] Work Phone: Start: 01-06-2023 End: 01-06-[address] Sukumar Camargo Work Phone: [facility] Work Phone: Start: 01-06-2023 End: 01-06-[address] Sukumar Camargo Work Phone: [facility] Work Phone: Start: 11-24-2022 End: 11-24-[address] Sukumar Camargo Work Phone: [facility] Work Phone: Start: 05-26-2022 End: 05-26-[address] Bill Castaneda Work Phone: [facility] Work Phone: Start: 05-26-2022 End: 05-26-[address] Bill Castaneda Work Phone: [facility] [place] Start: 02-25-2022 Non-patient / Non-visit Dr. Tommie Castaneda Work Phone: [facility] Start: 02-24-2022 Non-patient / Non-visit Dr. Tommie Castaneda Work Phone: [facility] Start: 02-23-2022 Non-patient / Non-visit Dr. Tommie Castaneda Work Phone: [facility] Start: 02-22-2022 Non-patient / Non-visit Dr. Tommie Castaneda Work Phone: [facility] Start: 02-21-2022 Non-patient / Non-visit Dr. Tommie Castaenda Work Phone: [facility] Start: 02-20-2022 Non-patient / Non-visit Dr. Tommie Castaneda Work Phone: [facility] Start: 02-20-2022 End: 02-25-2022 Evaluation and management of inpatient Dr. Bill Castaneda Work Phone: [facility]-Medical Surgical 3 Start: 02-18-2022 End: 02-18-[address] Bill Castaneda Work Phone: [facility] Work Phone: Start: 02-18-2022 End: 02-18-[address] Bill Castaneda Work Phone: [facility]-Medical Out Start: 01-30-2022 End: 01-30-[address] Bill Castaneda Work Phone: [facility] Start: 01-20-2022 End: 01-20-2022 Emergency department patient visit Dr. Bill Castaneda Work Phone: [facility]-Emergency Department Start: 01-07-2022 End: 01-07-[address] Bill Castaneda Work Phone: [facility] Work Phone: Start: 01-07-2022 End: 01-07-[address] Bill Castaneda Work Phone: [facility]-Laboratory Start: 12-31-2021 End: 12-31-[address] Bill Castaneda Work Phone: [facility] Work Phone: Start: 12-31-2021 End: 12-31-[address] Bill Castaneda Work Phone: [facility]-Laboratory Start: 12-31-2021 End: 12-31-[address] Bill Castaneda Work Phone: [facility] Start: 12-12-2018 End: 12-12-2018 Outside [facility] Scheduling Comment on above: Spinal stenosis of [...] Activity Detail Author Start: 03-02-2022 Blood chemistry [facility] Work Phone: Start: 03-01-2022 Blood chemistry [facility] Work Phone: Start: 02-28-2022 Blood chemistry [facility] Work Phone: Start: 02-27-2022 Blood chemistry [facility] Work Phone: Start: 02-26-2022 Blood chemistry [facility] Work Phone: Start: 02-25-2022 Patient discharge [facility] Start: 02-20-2022 Application of intermittent pneumatic compression device [facility] Start: 02-20-2022 Ambulation without limitation [facility] Start: 02-20-2022 Assessment of risk of venous thromboembolism [facility] Start: 02-20-[address] [facility] Start: 02-20-2022 Incentive spirometry [facility] Start: 02-20-2022 Insertion of catheter into peripheral vein [facility] Start: 02-20-2022 Providing care according to standard [facility] Start: 02-20-2022 Referral to occupational therapist [facility] Start: 02-20-2022 Referral to service [facility] Start: 02-20-2022 [facility] Start: 02-20-2022 Following clinical pathway protocol [facility] Start: 02-20-2022 Admission procedure [facility] Start: 02-18-2022 Iv infusion therapy/prophylaxis /dx 1st to 1 hr THER/PROPH/DIAG IV INF INIT [facility] Start: 11-12-2018 Influenza vaccination INFLUENZA VACCINE (#1) [facility] Start: 2002 Pneumococcal vaccination PNEUMOCOCCAL VACCINE SERIES (1 of 2 - PCV13) [facility] Start: 1987 Colonoscopy COLON CANCER SCREENING DISCUSSION [facility] Start: 1987 Zoster vaccine hzv live for subcutaneous use ZOSTER (SHINGLES) VACCINE (1 of 2) [facility] Start: 1977 Screening mammography MAMMOGRAM SCREENING DISCUSSION [facility] Start: 1958 Screening for malignant neoplasm of cervix PAP SMEAR DISCUSSION [facility] Start: 1956 Third diphtheria, tetanus and acellular pertussis (DTaP) vaccination TDAP (ADULT) [facility] Start: 1955 Tetanus vaccination TETANUS [facility] Start: 1937 Screening for osteoporosis [facility] Anion gap measurement [facility] Work Phone: BUN/Creatinine ratio [facility] Work Phone: Calcium [Mass/volume ] in Serum or Plasma [facility] Work Phone: Carbon dioxide, tota l [Moles/volume] in Serum or Plasma [facility] Work Phone: Chloride [Moles/volu me] in Serum or Plasma [facility] Work Phone: Creatinine [Moles/vo lume] in Serum or Plasma [facility] Work Phone: Glucose [Mass/volume ] in Serum or Plasma [facility] Work Phone: Hematocrit [Volume Fraction] of Blood [facility] Work Phone: Hemoglobin [Mass/vol ume] in Blood [facility] Work Phone: Leukocytes [#/volume ] in Blood [facility] Work Phone: Mean corpuscular hemoglobin concentration determination [facility] Work Phone: Mean corpuscular hemoglobin determination [facility] Work Phone: Measurement of renal function [facility] Work Phone: MR Brain WO and W co ntrast IV [facility] Neutrophil count [facility] Work Phone: Neutrophil percent differential count [facility] Work Phone: Patient Education [facility] Work Phone: Patient referral [facility] Work Phone: Platelets [#/volume] in Blood [facility] Work Phone: Potassium [Moles/vol ume] in Serum or Plasma [facility] Work Phone: Procedure [facility] Work Phone: Red blood cell count [facility] Work Phone: Red cell distributio n width determination [facility] Work Phone: Sodium [Moles/volume ] in Serum or Plasma [facility] Work Phone: Urea nitrogen [Mass/volume] in Serum or Plasma [facility] Work Phone: Vitamin D, 25-hydrox y measurement [facility] Immunizations Immunization Date Immunization Notes Care Provider Malathi [facility]3]subhash 05-08-2020 Covid (Moderna) Dr. Bill moya Work Phone: [facility] 04-10-2020 Covid (Moderna) Dr. Bill moya Work Phone: [facility] 12-09-2016 influenza, injectabl e, quadrivalent, preservative free Dr. Sukumar Camargo Work Phone: [facility] 12-09-2016 influenza, seasonal, injectable Dr. Bill Castaneda Work Phone: [facility] 12-13-[address] Bill Castaneda Work Phone: [facility] 04-14-[address] Nikolai Castaneda Work Phone: [facility] Work Phone: 04-14-2008 pneumococcal vaccine , unspecified formulation Dr. Bill Castaneda Work Phone: [facility] Payers Date Payer Category Payer Self-pay [id number] 2016 Private Health Insurance [place] [id number] 1935 Unknown [id number] 1935 Unknown [id number] Medicare MEDICARE PART A B [id number] Private Health Insurance [id number] Unknown [id number] Unknown [id number] Unknown [id number] Unknown [id number] Unknown [id number] Unknown [id number] Unknown [id number] Unknown [id number] Unknown [id number] Unknown [id number] Unknown [id number] Unknown [id number] Social History Date Type Detail Facility Tobacco smoking stat us NHIS Unknown if ever smoked [facility] Sex Assigned At Not on file [facility] Start: 08-13-2021 End: 06-15-2023 Tobacco smoking status NHIS Unknown if ever smoked [facility] Start: 09-27-2019 None [facility] Start: 09-27-2019 Alone [facility] Start: 09-27-2019 Non-smoker [facility] Start: 1935 Sex Assigned At Female [facility] Goals Date Patient Goal Desired Activity /State Functional Status Date Assessment Result Facility 02-25-2022 Functional status Ambulates [facility] Work Phone: Mental Status Date Assessment Result Facility 07-06-2023 Cognitive function Awake;Alert;A ppropriate;Follow s Commands [facility] Work Phone: 02-25-2022 Cognitive function Appropriate;Cooperativ e [facility] Work Phone: 02-25-2022 Cognitive function Patient Orientation Ti me [facility] Work Phone: 02-24-2022 Cognitive function Voice/Name [facility] Work Phone: 02-20-2022 Cognitive function Level Of Cons ciousness Awake;Alert;Appropriate;Follow s Commands [facility] Work Phone: Evaluation note Note Date & Type Note Facility Evaluation note Diagnosis Onset Date Hypothyroidism chronic Osteoporosis chronic [facility] Work Phone: Evaluation note Note Date & Type Note Facility Evaluation note Diagnosis Onset Date Hypothyroidism chronic Osteoporosis chronic Acute cough acute Acute pharyngitis acute Encounter for screening for COVID-19 acute Right serous otitis media ac [place] Debility acute Hypokalemia acute Inability to walk acute [facility] Work Phone: Evaluation note Note Date & Type Note Facility Evaluation note Diagnosis Onset Date Hypothyroidism chronic Osteoporosis chronic Acute cough acute Acute pharyngitis acute Encounter for screening for COVID-19 acute Right serous otitis media ac [place] Debility acute Hypokalemia acute Inability to walk acute Transaminitis acute [facility] Work Phone: Evaluation note Note Date & Type Note Facility Evaluation note Diagnosis Onset Date Hypokalemia resolved [facility] Work Phone: Evaluation note Note Date & Type Note Facility Evaluation note Diagnosis Onset Date Cerebrovascular disease acut e Parkinson's disease noneacti ve [facility] Work Phone: Evaluation note Note Date & Type Note Facility Evaluation note Diagnosis Onset Date Low back pain acute Polyneuropathy acute [facility] Work Phone: Evaluation note Note Date & Type Note Facility Evaluation note Diagnosis Onset Date Low back pain acute Polyneuropathy acute Controlled diabetes mellitus with peripheral circulatory disorder chronic Hypothyroidism chronic Osteoporosis chronic [facility] Work Phone: Summary Purpose Family History [...] Yes September 28, 2019 11:39am Power of Ep Specialist Yes September 27 11:39am Advance Directive Response Recorded Date/ Time Name of Medical Power of Ep Specialist Dakota and Candace January 20, 2022 1:19pm Name of Medical Power of Ep Specialist Candaec Danii February 20, 2022 1:24pm Advance Directives Yes October 24, 2013 12:26pm Living Will Yes February 20, 2 022 1:24pm Power of Ep Specialist Yes February 20, 2022 1:24pm Advance Directive Response Recorded Date/ Time Name of Medical Power of Ep Specialist Dakota and Candace January 20, 2022 1:19pm Name of Medical Power of Ep Specialist Candace Danii February 20, 2022 4:30pm Advance Directives Yes October 24, 2013 12:26pm Living Will Yes February 20, 2 022 4:30pm Power of Ep Specialist Yes February 20, 2022 4:30pm Advance Directive Response Recorded Date/ Time Name of Medical Power of Ep Specialist Candace Foy February 20, 2022 5:30pm Advance Directives Yes October 24, 2013 1:26pm Living Will Yes February 20, 2 022 5:30pm Power of Ep Specialist Yes February 20, 2022 5:30pm Advance Directive Response Recorded Date/ Time Advance Directives Yes October 24, 2013 1:26pm Living Will Yes February 20, 2 022 5:30pm Power of Ep Specialist Yes February 20, 2022 5:30pm Advance Directive Response Recorded Date/ Time Advance Directives Yes October 24, 2013 12:26pm Living Will Yes February 20, 2 022 4:30pm Power of Ep Specialist Yes February 20, 2022 4:30pm Reason for Referral Status Reason Specialty Diagnoses / Procedures Referred By Contact Referred To Contact New Request Orthopaedic Surgery Diagnoses Spinal stenosis of lumbar region, unspecified whether neurogenic claudication present Bill Castaneda MD [address] [place] [address] Bia Alonzo MD [address] [place] [id number] Assessments Diagnosis Spinal stenosis of lumbar region, [...] TO AMBULATE DEBILITY AND INABILITY TO AMBULATE CORRECTION LAB WORK Reason for Visit Hypokalemia Chief Complaint CORRECTION LAB WOR K Parkinson's disease EORDER Reason for Visit Cerebrovascular dise ase Parkinson's disease Chief Complaint PARKINSONS 4 M FU LAB AND XRAY EORDERS- low back pain Reason for Visit Low back pain Polyneuropathy Chief Complaint 4 M FU LAB AND XRAY EORDERS- low back pain 1.5 Y FU CORRECTION LAB WORK RECLAST Reason for Visit Low back pain Polyneuropathy Controlled diabetes mellitus with peripheral circulatory disorder Hypothyroidism Osteoporosis Additional Source Comments INFORMATION SOURCE (unrecogn ized section and content) DATE CREATED AUTHOR 07/16/2018 [facility] DATE CREATED AUTHOR AUTHOR'S ORGANIZ ATION 12/27/2018 [facility] DATE CREATED AUTHOR AUTHOR'S ORGANIZ ATION 09/17/2021 [facility] DATE CREATED AUTHOR AUTHOR'S ORGANIZ ATION 06/19/2024 [facility] Care Teams (unrecognized sec tion and [...] Fela Bañuelos DO Emergency Provider Active Dr. Vonad Plummer DO Admit Provider, Other Provider Ac [...] Dr. Sukumar Camargo DO Primary Care Provider, Attendin g Provider [...] Sukumar Camargo DO Primary Care Provider Active [facility] Attending Provider Active FOR RECORDS PERTAINING TO [...] BE BASED ON THE PRIMARY CLINICAL RECORDS. [employer] provides no warranty or guarantee of the accuracy or completeness of information in this document.
== END ==
PROVIDERS: PCP Family Medicine
DX: E03.9 Hypothyroidism, unspecified (principal)
CPT/HCPCS: 36415; 84443

== ENCOUNTER 2024-09-11 13:34 | Emergency (ER) | payer MEDICARE, SELFPAY ==
[2024-09-11 13:38] VITALS: BP 105/61; PULSE 58; RESP 16; TEMP 36.1; O2SAT 98; BMI 25.1
--- NOTE | 2024-09-11 14:04 | EKG12_ITS ---
Test Reason : WEAKNESS Blood Pressure : */* mmHG Vent. Rate : 60 BPM Atrial Rate : 60 BPM P-R Int : 190 ms QRS Dur : 88 ms QT Int : 464 ms P-R-T Axes : 75 6 7 degrees QTcB Int : 464 ms Normal sinus rhythm Normal ECG Confirmed by PRANEETH QUEEN, ROCHELLE ([id number]), acquisitions editor MONA KEARNEY ([id number]) on 09/12/2024 1:45:04 PM Referred By: Confirmed By: ROCHELLE DACOSTA MD
--- NOTE | 2024-09-11 14:04 | EX.ED.DYSGE1 ---
HPI History of Present Illness Chief Complaint: Hypotension Narrative Narrative: Patient is a 89-year-old female with past medical history of hypertension, hyperlipidemia, Takotsubo cardiomyopathy, Parkinson disease, asthma who presents to the emergency department with a chief complaint of low blood pressure. Patient states that she was talking with her kids and she became very hot she states that this episode happened before and noted that her blood pressure was low therefore she was sent here to be evaluated. Patient states that she feels back to her baseline and has no complaints. Patient states that she did not pass out. [facility] Medical History Parkinsons disease Transaminitis Inability to walk Hypercalcemia Debility Colitis Back pain Old anterior wall myocardial infarction Osteoarthritis Asthma Essential (primary) hypertension Controlled diabetes mellitus with peripheral circulatory disorder HLD (hyperlipidemia) Palpitations Other chest pain Takotsubo cardiomyopathy Home Medications ?Medication ?Instructions ?Recorded ?Last Taken ?Type ezetimibe 10 mg tablet (Zetia) 10 mg PO DAILY cholesterol 12/15/17 02/20/22 History tramadol 50 mg tablet 50 mg PO BID pain 05/08/19 02/20/22 History cholecalciferol (vitamin D3) 50 2,000 unit PO DAILY supplement 10/25/19 02/20/22 History mcg (2,000 unit) tablet carvedilol 25 mg tablet 25 mg PO BID BP #180 tabs 09/11/21 02/20/22 Rx mecobalamin (vitamin B12) 500 mcg 500 mcg PO DAILY 09/09/22 Unknown History chewable tablet wpcuocga-zoym-dxiqq acid 120 1 tab PO DAILY 01/06/23 Unknown History mcg-herb no.293 37.5 mg chewable tablet (Alive Women's Gummy Vitamin) carbidopa 25 mg-levodopa 100 mg See Rx Instructions .Route 09/08/23 Unknown Rx tablet (Sinemet) .COMPLEX #180 tabs docusate sodium 100 mg capsule 100 mg PO BID pain 09/08/23 Unknown History (Dulcolax Stool Softener (docusate)) ibuprofen 400 mg tablet 400 mg PO DAILY PRN fever or pain 09/08/23 Unknown History losartan 50 mg tablet 50 mg PO QDAY #30 tabs 02/28/24 Unknown Rx levothyroxine 100 mcg tablet 100 mcg PO QDAY #90 tabs 06/19/24 Unknown Rx acetaminophen 325 mg capsule 650 mg PO BID PRN fever or pain 08/21/24 Unknown History ketorolac 0.5 % eye drops 1 drp ophthalmic (eye) Q6H 08/21/24 Unknown History ofloxacin 0.3 % eye drops 1 drp ophthalmic (eye) Q6H 08/21/24 Unknown History Allergy/AdvReac Type Severity Reaction Status Date / Time amoxicillin Allergy Unknown Unknown Verified 09/11/24 13:38 Anesthetics - Amide Type - Allergy Unknown Verified 09/11/24 13:38 Select A (Anesthetics - Amide Type) Anesthetics - Lizzette Type- Allergy Unknown Verified 09/11/24 13:38 Parabens (Anesthetics - Lizzette Type) Mvauxdi-ORH-CsS Reductase AdvReac Severe Myalgia Verified 09/11/24 13:38 Inhibitor (Lnupebz-Ask-Vti Reductase Inhibitor) Family History Father , age 83 Colon cancer Mother , age 90 CHF (congestive heart failure) Brother , age 68 Diabetes Sister CVA (cerebral vascular accident) Daughter Hypertension Daughter Thyroid disorder Surgical History History of left hip replacement History of right hip replacement (~2016) History of fractured pelvis (~2013) History of dilation and curettage (~1994) History of back surgery (~2016) History of left heart catheterization (LHC) (03/2010) History of cholecystectomy (~2005) History of tonsillectomy Social History household members: none housing: house Smoking Status: Former smoker how long ago did patient quit smokin alcohol intake: never substance use type: does not use caffeine: No do you feel safe at home: Yes ROS ROS ED ROS Narrative Constitutional: Denies any fevers, chills, headaches, lightheadedness, dizziness Eyes: Denies change visual vision blurry vision Cardiovascular: Denies chest pain palpitation Respiratory: Denies coughing wheezing shortness of breath Abdomen: Denies abdominal pain nausea vomit diarrhea : Denies urinary symptoms Neurological: Denies numbness, weakness, tingling Musculoskeletal: Denies back pain Skin: Denies any rashes or lesions EXAM Physical Exam Narrative Exam Narrative: General: Patient was lying in bed rest comfortably did not appear to be acute distress Head: Atraumatic, normocephalic Eyes: PERRL bilaterally, EOMI bilateral, no conjunctival injection noted Neck: Soft, supple, trachea midline Cardiovascular: Patient bradycardic with a regular rhythm rhythm no murmurs gallops rubs noted Respiratory: Clear to auscultation bilaterally no rales rhonchi or wheeze noted Abdomen: Soft, nondistended, tender to palpation Extremities: +4/5 strength noted in the bilateral upper and lower extremities, no pedal edema on exam Neurological: Patient following commands that she was at [facility] years 2024 sensation grossly intact Skin: Warm, dry, intact no rashes lesions noted Const Vital Signs: 09/11/24 13:38 09/11/24 14:31 09/11/24 14:34 Temperature 97 F L Temperature Source Oral Pulse Rate 58 L 56 L Pulse Rate [Lying] Pulse Rate [Sitting (for 1 minute prior to obtaining)] Respiratory Rate 16 13 Respiratory Effort Normal Non-Labored Blood Pressure 105/61 131/61 H Blood Pressure [Lying] Blood Pressure [Sitting (for 1 minute prior to obtaining)] Blood Pressure [Standing (for 1 minute prior to obtaining)] Blood Pressure Mean 75 84 Blood Pressure Mean [Lying] Blood Pressure Mean [Sitting (for 1 minute prior to obtaining)] Blood Pressure Mean [Standing (for 1 minute prior to obtaining)] Pulse Ox 98 96 Oxygen Delivery Method Room Air 09/11/24 16:00 Temperature Temperature Source Pulse Rate Pulse Rate [Lying] 78 Pulse Rate [Sitting (for 1 minute prior to obtaining)] 78 Respiratory Rate Respiratory Effort Blood Pressure Blood Pressure [Lying] 124/76 H Blood Pressure [Sitting (for 1 minute prior to obtaining)] 128/76 H Blood Pressure [Standing (for 1 minute prior to obtaining)] 126/55 H Blood Pressure Mean Blood Pressure Mean [Lying] 92 Blood Pressure Mean [Sitting (for 1 minute prior to obtaining)] 93 Blood Pressure Mean [Standing (for 1 minute prior to obtaining)] 78 Pulse Ox Oxygen Delivery Method MDM MDM MDM Narrative Medical decision making narrative: Patient is a 89-year-old female who presented to the emerged part with a chief complaint of hypotension. On the differential diagnose includes but not limited to orthostatic hypotension, dehydration, electrolyte abnormality. Once workup is obtained reviewed she will be reevaluated. Patient be given IV fluids and orthostats will be obtained. Patient's CBC was reviewed showed no evidence leukocytosis white blood count 5.6, hemoglobin 0.5, platelet count 237. Patient odium is 141, testing normal at 2.7, creatinine is 0.42 appears to be around her baseline. Patient's AST and ALT were 24 and less than 5 respectively. Patient's urinalysis pending EKG was reviewed showed sinus rhythm with a rate of 60 bpm. Patient was observed here in the emergency department and she has not had any low blood pressures while in the emergency department they have been normal to hypertensive. Patient had orthostatic vital signs obtained which are normal. Patient ambulated here without any difficulty and thought her baseline. She would like to go home at this point time. She is advised follow-up with her doctor in outpatient and return with worsening symptoms or concerns. She is agreeable to plan all question concerns answered she is discharged home in stable condition. Lab Data Labs: Laboratory Results - last 24 hr 09/11/24 14:26 WBC 5.6 RBC 3.85 L Hgb 11.5 L Hct 34.5 L MCV 89.6 MCH 29.9 MCHC 33.3 RDW Std Deviation 44.2 H RDW Coeff of [place] 13.5 Plt Count 237 MPV 9.1 Immature Gran % (Auto) 0.200 Neut % (Auto) 62.6 Lymph % (Auto) 25.8 [place] % (Auto) 8.9 Eos % (Auto) 2.0 Baso % (Auto) 0.5 Absolute Neuts (auto) 3.5 Absolute Lymphs (auto) 1.45 Nucleated RBC % 0 Sodium 141 Potassium 3.7 Chloride 105 Carbon Dioxide 25.4 Anion Gap 10 BUN 17 Creatinine 0.42 L Estim Creat Clear Calc 44.71 L Est GFR (MDRD) Non-Af 95 BUN/Creatinine Ratio 39.8 H Glucose 138 H Calcium 9.4 Total Bilirubin 0.35 AST 24 ALT < 5 Alkaline Phosphatase 57 Total Protein 6.2 Albumin 3.8 Globulin 2.4 Albumin/Globulin Ratio 1.6 Discharge Plan Triage Chief Complaint: Hypotension ED Provider: Jordon Gallego Dx/Rx/DC Orders Clinical Impression: Transient hypotension, Encounter for medical screening examination, Hypertension, Cerebrovascular disease, Parkinsons disease Prescriptions: No Action mecobalamin (vitamin B12) 500 mcg tablet,chewable 500 mcg PO DAILY docusate sodium [Dulcolax Stool Softener (dss)] 100 mg capsule 100 mg PO BID Alive Women's Gummy Vitamin 120 mcg- 37.5 mg tablet,chewable 1 tab PO DAILY ibuprofen 400 mg tablet 400 mg PO DAILY PRN (Reason: fever or pain) levothyroxine 100 mcg tablet 100 mcg PO QDAY Qty: 90 3RF losartan 50 mg tablet 50 mg PO QDAY Qty: 30 7RF tramadol 50 MG tablet 50 mg PO BID acetaminophen 325 mg capsule 650 mg PO BID PRN (Reason: fever or pain) ketorolac 0.5 % drops 1 drp ophthalmic (eye) Q6H Rx Instructions: LEFT EYE ofloxacin 0.3 % drops 1 drp ophthalmic (eye) Q6H Patient Comments: [NO ORIGINAL SIG] Rx Instructions: LEFT EYE ezetimibe [Zetia] 10 mg tablet 10 mg PO DAILY cholecalciferol (vitamin D3) 50 mcg (2,000 unit) tablet 2,000 unit PO DAILY Patient Comments: SUPPLEMENT carvedilol 25 mg tablet 25 mg PO BID Qty: 180 3RF carbidopa-levodopa [Sinemet] 25-100 mg tablet See Rx Instructions .ROUTE .COMPLEX Qty: 180 7RF Rx Instructions: Take 1 tablet orally every morning upon awakening, 1 tablet later in the morning, 2 tablets in the early afternoon and 2 tablets in the evening. Primary Care Provider: Sukumar Camargo Referrals: Sukumar Camargo DO [Primary Care Provider] - Activity Restrictions/Additional Instructions: Follow-up with your doctor in the outpatient setting your blood work did not show any acute findings here today. Return with worsening symptoms or any other concerns. Print Language: Kittitian Disposition Disposition: Home, Self Care
[2024-09-11] MEDS: 0.9% Normal Saline (1000mL) 1,000 ML 999 ML IV (14:27)
[2024-09-11 14:32] LABS: Hematocrit 34.5 % (37-47); Hemoglobin 11.5 g/dL (12.0-15.0); Immature Granulocytes Count 0.010 X10^3/uL (0.0-0.0); Mean Corp Hgb Conc 33.3 g/dL (32-36); Mean Corpuscular Volume 89.6 fL (81-99); Mean Platelet Vol. 9.1 fl (6.2-12.0); NRBC Flagged by Analyzer 0 % (0-5); Platelet Count 237 K/mm3 (150-450); RBC Distribution Width CV 13.5 % (11.6-14.6); RBC Distribution Width SD 44.2 fl (35.1-43.9); Red Blood Count 3.85 M/mm3 (4.2-5.4); White Blood Count 5.6 K/mm3 (4.4-11.0)
[2024-09-11 14:34] VITALS: BP 131/61; PULSE 56; RESP 13; O2SAT 96
[2024-09-11 15:30] LABS: AST(SGOT) 24 U/L (<=31); Alanine Aminotransfer ALT/SGPT < 5 U/L (<=34); Albumin, Serum 3.8 g/dL (3.4-4.8); Alkaline Phosphatase 57 U/L (35-104); Anion Gap 10 (5-15); BUN 17 mg/dL (4-19); BUN/Creat Ratio 39.8 RATIO (10-20); Calcium,Total 9.4 mg/dL (7.6-11.0); Carbon Dioxide 25.4 mmol/L (21.0-32.0); Chloride 105 mmol/L (98-108); Estimated Creatinine Clearance 44.71 ml/min (50-250); Globulin 2.4 g/dL (2.2-4.2); Glucose 138 mg/dL (70-99); Potassium 3.7 mmol/L (3.3-5.1)
[2024-09-11 16:00] VITALS: BP 124/76; BP 126/55; BP 128/76; PULSE 78; O2SAT 94
[2024-09-11 17:21] VITALS: BP 126/66; PULSE 64; RESP 18; TEMP 36.6; O2SAT 99
[2024-09-11 17:55] LABS: Color, Urine Straw (Yellow); Glucose, Dipstick Normal (Normal); Ketone-Dipstick 5 mg/dl (Negative); Leukocyte Esterase-Dipstick Negative /ul (Negative); Nitrite-Dipstick Negative (Negative); Occult Blood-Urine Negative /ul (Negative); Protein-Dipstick 15 mg/dl (Negative); Specific Gravity, Urine 1.015 (1.002-1.030); Urine Bilirubin Dipstick Negative (Negative)
[2024-09-11 19:06] LABS: Red Blood Cells-Urine 0-5 SEEN /hpf (0-5); Squamous Epithelial Cells - UA 0-5 SEEN /hpf (5-10)
[2024-09-11 19:07] LABS: Mucous, Urine 1+ /hpf (<or=2+)
== END 2024-09-11 17:22 | disposition home or self-care (01) ==
PROVIDERS: Emergency Provider Emergency Medicine; PCP Family Medicine; Visit Provider Emergency Medicine
DX: I95.89 Other hypotension (principal); G20.A1 Parkinson's disease without dyskinesia, without mention of fluctuations; E11.9 Type 2 diabetes mellitus without complications; I10 Essential (primary) hypertension; E78.5 Hyperlipidemia, unspecified; Z87.891 Personal history of nicotine dependence; Z79.899 Other long term (current) drug therapy; Z96.643 Presence of artificial hip joint, bilateral; Z90.49 Acquired absence of other specified parts of digestive tract; I67.9 Cerebrovascular disease, unspecified
CPT/HCPCS: 80053; 81001; 85025; 93005; 96360; 99284; A4216

== ENCOUNTER 2024-11-20 07:33 | Emergency (ER) | payer MEDICARE, SELFPAY ==
[2024-11-20] VITALS (12 sets, daily range): BP systolic 157–240; BP diastolic 71–115; PULSE 67–87; RESP 12–18; TEMP 36.6; O2SAT 97–100; BMI 24.5
--- NOTE | 2024-11-20 07:47 | EX.ED.DYSGE1 ---
HPI History of Present Illness Chief Complaint: Hypertension Informant: patient Onset/Context/Timing Onset: Yesterday Context: Gradual Onset Timing: Continuous Quality: Aching Location: Left periorbital area Worsened by: Nothing Relieved by: Nothing Narrative Narrative: Patient presents with elevated blood pressures that began yesterday. Patient admits to a headache. Patient states it is around her left eye. Patient states she did have an episode of vertigo in the middle of the night when she got up to use the restroom. Patient states everything was spinning at that time. Patient states this has resolved. Patient admits to some nausea but denies any vomiting. Patient admits to some urinary frequency but denies any dysuria or hematuria. Patient denies any fevers or chills. [facility] Medical History Parkinsons disease Transaminitis Inability to walk Hypercalcemia Debility Colitis Back pain Old anterior wall myocardial infarction Osteoarthritis Asthma Essential (primary) hypertension Controlled diabetes mellitus with peripheral circulatory disorder HLD (hyperlipidemia) Palpitations Other chest pain Takotsubo cardiomyopathy Home Medications ?Medication ?Instructions ?Recorded ?Last Taken ?Type ezetimibe 10 mg tablet (Zetia) 10 mg PO DAILY cholesterol 12/15/17 02/20/22 History tramadol 50 mg tablet 50 mg PO BID pain 05/08/19 02/20/22 History cholecalciferol (vitamin D3) 50 2,000 unit PO DAILY supplement 10/25/19 02/20/22 History mcg (2,000 unit) tablet mecobalamin (vitamin B12) 500 mcg 500 mcg PO DAILY 09/09/22 Unknown History chewable tablet usmymysf-htws-rrpvn acid 120 1 tab PO DAILY 01/06/23 Unknown History mcg-herb no.293 37.5 mg chewable tablet (Alive Women's Gummy Vitamin) docusate sodium 100 mg capsule 100 mg PO BID pain 09/08/23 Unknown History (Dulcolax Stool Softener (docusate)) levothyroxine 100 mcg tablet 100 mcg PO QDAY #90 tabs 06/19/24 Unknown Rx acetaminophen 325 mg capsule 650 mg PO BID PRN fever or pain 08/21/24 Unknown History ketorolac 0.5 % eye drops 1 drp ophthalmic (eye) Q6H 08/21/24 Unknown History ofloxacin 0.3 % eye drops 1 drp ophthalmic (eye) Q6H 08/21/24 Unknown History lidocaine 5 % topical patch 2 patch topical QDAY #60 ea 10/02/24 Unknown Rx carbidopa 25 mg-levodopa 100 mg See Rx Instructions .Route 10/03/24 Unknown Rx tablet (Sinemet) .COMPLEX #180 tabs carvedilol 25 mg tablet 12.5 mg (1/2 x 25 mg) PO BID BP #0 11/09/24 Unknown Rx tabs losartan 25 mg tablet (Cozaar) 25 mg PO DAILY #30 tabs 11/20/24 Unknown Rx Allergy/AdvReac Type Severity Reaction Status Date / Time amoxicillin Allergy Unknown Unknown Verified 11/20/24 07:37 Anesthetics - Amide Type - Allergy Unknown Verified 11/20/24 07:37 Select A (Anesthetics - Amide Type) Anesthetics - Lizzette Type- Allergy Unknown Verified 11/20/24 07:37 Parabens (Anesthetics - Lizzette Type) Ovlmfeh-NCP-ZjO Reductase AdvReac Severe Myalgia Verified 11/20/24 07:37 Inhibitor (Pnscorn-Dwa-Jbl Reductase Inhibitor) Family History Father , age 83 Colon cancer Mother , age 90 CHF (congestive heart failure) Brother , age 68 Diabetes Sister CVA (cerebral vascular accident) Daughter Hypertension Daughter Thyroid disorder Surgical History History of cataract surgery History of left hip replacement History of right hip replacement (~2016) History of fractured pelvis (~2013) History of dilation and curettage (~1994) History of back surgery (~2016) History of left heart catheterization (LHC) (03/2010) History of cholecystectomy (~2005) History of tonsillectomy Social History household members: none housing: house Smoking Status: Former smoker how long ago did patient quit smokin alcohol intake: never substance use type: does not use caffeine: No do you feel safe at home: Yes ROS ROS ED Constitutional Constitutional ED: Denies chills or fever(s) Eyes Eyes: Denies blurry vision or change in vision ENT ENT ED: Denies rhinorrhea or sore throat Cardiovascular Cardiovascular: Denies chest pain or palpitations Respiratory/Chest Respiratory/Chest: Denies cough or dyspnea Gastrointestinal Gastrointestinal: Reports nausea; Denies vomiting Genitourinary Genitourinary ED: Reports urinary frequency; Denies dysuria or hematuria Musculoskeletal Musculoskeletal: Reports neck pain; Denies back pain Integumentary Denies abscess or rash Neurologic Neurologic: Reports headache(s); Denies weakness Allergic/Immunologic Allergic/Immunologic ED: Denies mouth swelling or urticaria EXAM Physical Exam Const Vital Signs: 11/20/24 07:34 11/20/24 07:39 11/20/24 07:58 Temperature 98 F Temperature Source Oral Pulse Rate 76 78 Respiratory Rate 17 17 Respiratory Effort Normal Respiratory Pattern Normal Blood Pressure 228/105 H Blood Pressure Mean 146 Pulse Ox 100 99 Oxygen Delivery Method Room Air 11/20/24 08:00 11/20/24 08:15 11/20/24 08:30 Temperature Temperature Source Pulse Rate 79 76 Respiratory Rate 12 15 Respiratory Effort Respiratory Pattern Blood Pressure 234/115 H 216/99 H 223/110 H Blood Pressure Mean 146 132 143 Pulse Ox 97 99 Oxygen Delivery Method 11/20/24 08:30 11/20/24 08:45 11/20/24 08:45 Temperature Temperature Source Pulse Rate 77 67 Respiratory Rate 15 14 Respiratory Effort Respiratory Pattern Blood Pressure 223/110 H 207/105 H 207/105 H Blood Pressure Mean 143 131 131 Pulse Ox 100 Oxygen Delivery Method 11/20/24 09:00 11/20/24 09:09 11/20/24 09:25 Temperature Temperature Source Pulse Rate 67 71 84 Respiratory Rate 16 13 Respiratory Effort Respiratory Pattern Blood Pressure 199/102 H 199/102 H Blood Pressure Mean 127 134 Pulse Ox 99 100 Oxygen Delivery Method Room Air 11/20/24 09:30 11/20/24 11:08 Temperature Temperature Source Pulse Rate 73 87 Respiratory Rate 16 14 Respiratory Effort Respiratory Pattern Blood Pressure 240/111 H 157/71 H Blood Pressure Mean 147 99 Pulse Ox 98 Oxygen Delivery Method Positive well nourished and well developed General Appearance ED: well developed and NAD HEENT Reports moist mucous membranes Neck supple and no JVD Resp normal respiratory effort and clear to auscultation bilaterally Cardio regular rate and regular rhythm GI non-tender and non-distended Palpation: soft Extremity normal to inspection General Extremety ED: Negative for edema General Extremity: Negative for edema Neuro oriented x3, CN's II-XII intact bilaterally and no sensory deficits noted Sensorium / Orientation: alert Motor Exam: strength 5/5 throughout Psych mental status grossly normal MDM MDM MDM Narrative Medical decision making narrative: Differential diagnosis includes hypertensive urgency, hypertensive emergency, intracranial bleeding, electrolyte abnormality, cardiac dysrhythmia, cardiac ischemia, pneumonia, bronchitis, and anxiety. EKG will be obtained to assess for cardiac dysrhythmia and cardiac ischemia. Chest x-ray will be obtained to assess for pneumonia and bronchitis. CT scan of the brain will be obtained to assess for intracranial bleeding. CBC will be obtained to assess for leukocytosis and anemia. Basic metabolic profile will be obtained to assess for electrolyte abnormality and renal function. High-sensitivity troponin will be obtained to assess for cardiac ischemia. History & Record Review Additional record(s) reviewed:: Prior outpatient record, Prior ED visit and Prior labs Lab Data Attestation: I reviewed the patient's lab results. Lab results narrative: CBC was reviewed and is within normal limits. Basic metabolic profile was reviewed and was within normal limits. Initial high-sensitivity troponin was reviewed and was slightly elevated at 44. 2-hour repeat high-sensitivity troponin was reviewed and was 42. Urinalysis was reviewed. There is no evidence of urinary tract infection or hematuria. Labs: Laboratory Results - last 24 hr 11/20/24 11/20/24 11/20/24 07:35 09:27 09:50 WBC 5.6 RBC 4.94 Hgb 14.4 Hct 43.9 MCV 88.9 MCH 29.1 MCHC 32.8 RDW Std Deviation 42.4 RDW Coeff of Jay Jay 13.1 Plt Count 296 MPV 8.9 Immature Gran % (Auto) 0.400 Neut % (Auto) 57.8 Lymph % (Auto) 30.2 Evangeline % (Auto) 8.9 Eos % (Auto) 1.8 Baso % (Auto) 0.9 Absolute Neuts (auto) 3.2 Absolute Lymphs (auto) 1.69 Nucleated RBC % 0 Sodium 143 Potassium 3.6 Chloride 105 Carbon Dioxide 22.1 Anion Gap 17 H BUN 15 Creatinine 0.49 L Estim Creat Clear Calc 40.98 L Est GFR (MDRD) Non-Af 91 BUN/Creatinine Ratio 30.4 H Glucose 92 Calcium 10.0 Troponin T High Sens 44 H Troponin T Hi Sens 2 Hr 42 H Urine Color Yellow Urine Clarity Clear Urine pH 7.0 Ur Specific Mcleod 1.010 Urine Protein 15 H Urine Glucose (UA) Normal Urine Ketones Negative Urine Occult Blood 10 H Urine Nitrite Negative Urine Bilirubin Negative Urine Urobilinogen Normal Ur Leukocyte Esterase Negative Urine RBC 0 SEEN Urine WBC 0-5 SEEN Ur Squamous Epith Cells 0-5 SEEN Urine Bacteria 0 SEEN Urine Mucus 0 SEEN Radiography Chest X-Ray - ED: 2 View, Read by ED Physician, Read by Radiologist and No Acute Disease Diagnostic Testing: Clinical Impression(s) from Imaging Studies Brain CT 11/20/24 08:18 IMPRESSION: CHRONIC CHANGES. NO ACUTE FINDINGS. Stable arachnoid cyst in the left middle cranial fossa. Reading Location: [id number] Chest X-Ray 11/20/24 08:52 IMPRESSION: Mild cardiac enlargement. Reading Location: [facility] Portable 1 view chest x-ray was obtained. On my independent interpretation, lung ibarra are clear. There is normal cardiac silhouette. Bony thorax is normal. There is no acute process noted. Radiologist also interpreted the x-ray and agrees. CT scan of the brain was obtained. There is no acute intracranial abnormality. This was interpreted by the radiologist and was also independently reviewed by myself. EKG Initial EKG: Attestation: I personally reviewed and interpreted this EKG as follows: Interpretation: Sinus Rhythm (73) and Non-Specific ST Changes Comments: EKG was obtained. On my independent interpretation, it showed a normal sinus rhythm with a rate of 73. [place] interval, QRS interval, and QTc intervals were all normal. There is borderline left axis deviation at -21. There are nonspecific ST-T wave changes. Prior EKG tracings: available for review Prior: Unchanged (09/11/2024) Treatment and Re-Evaluation :: Patient was given a dose of labetalol here. Patient had minimal improvement with this. Patient was given a dose of hydralazine. Patient's blood pressure improved to 151/78. Case was discussed with Dr. Camargo. He recommended restarting the patient on losartan 25 mg. This was ordered. Patient was instructed to follow-up in 5 to 7 days. Patient understood and was agreeable with the plan. All questions were answered. Discharge Plan Triage Chief Complaint: Hypertension Other Complaint: Nausea/Vomiting ED Provider: Milton Martinez Dx/Rx/DC Orders Clinical Impression: Essential (primary) hypertension, Diabetes mellitus, Parkinsons disease Instructions: ED High Blood Pressure Hypertension Prescriptions: New losartan [Cozaar] 25 mg tablet 25 mg PO DAILY Qty: 30 0RF No Action mecobalamin (vitamin B12) 500 mcg tablet,chewable 500 mcg PO DAILY docusate sodium [Dulcolax Stool Softener (dss)] 100 mg capsule 100 mg PO BID Alive Women's Gummy Vitamin 120 mcg- 37.5 mg tablet,chewable 1 tab PO DAILY levothyroxine 100 mcg tablet 100 mcg PO QDAY Qty: 90 3RF lidocaine 5 % adhesive patch,medicated 2 patch topical QDAY Qty: 60 9RF Rx Instructions: leave on most painful area for up to 12 hrs carbidopa-levodopa [Sinemet] 25-100 mg tablet See Rx Instructions .ROUTE .COMPLEX Qty: 180 7RF Rx Instructions: Take 1 tablet orally every morning upon awakening, 1 tablet later in the morning, 2 tablets in the early afternoon and 2 tablets in the evening. tramadol 50 MG tablet 50 mg PO BID acetaminophen 325 mg capsule 650 mg PO BID PRN (Reason: fever or pain) ketorolac 0.5 % drops 1 drp ophthalmic (eye) Q6H Rx Instructions: LEFT EYE ofloxacin 0.3 % drops 1 drp ophthalmic (eye) Q6H Patient Comments: [NO ORIGINAL SIG] Rx Instructions: LEFT EYE ezetimibe [Zetia] 10 mg tablet 10 mg PO DAILY cholecalciferol (vitamin D3) 50 mcg (2,000 unit) tablet 2,000 unit PO DAILY Patient Comments: SUPPLEMENT carvedilol 25 mg tablet 12.5 mg PO BID Qty: 0 0RF Primary Care Provider: Sukumar Camargo Referrals: Sukumar Camargo DO [Primary Care Provider] - 5-7 Days Print Language: Wallisian Disposition Disposition: Home, Self Care
--- NOTE | 2024-11-20 08:18 | CT_ITS ---
PROCEDURE: BRAIN/HEAD WITHOUT CONTRAST 11/20/2024 REASON FOR EXAM: HEADACHE Dizziness. Nausea and vomiting. TECHNIQUE: Procedure Code: CTBR Modality: CT Procedure: BRAIN/HEAD WITHOUT CONTRAST Coronal and Sagittal reconstruction series were provided. One or more dose reduction techniques were used (e.g., Automated exposure control, adjustment of the mA and/or kV according to patient size, use of iterative reconstruction technique. RADIATION DOSE SUMMARY: CTDlvol: 44.99 mGy DLP: 745.49 mGycm COMPARISON: Prior study dated November 06, 2023. FINDINGS: Brain: Low density in the periventricular white matter suggests mild chronic small vessel ischemic changes. CSF Spaces: Moderate generalized cerebral atrophy once again, there is a stable arachnoid cyst in the left middle cranial fossa. Sinuses/Mastoids: The sinuses are clear. Bones: Hyperostosis frontalis interna. CT/Brain/Head without Contrast IMPRESSION: CHRONIC CHANGES. NO ACUTE FINDINGS. Stable arachnoid cyst in the left middle cranial fossa. Reading Location: [id number]
[2024-11-20 08:33] LABS: Hematocrit 43.9 % (37-47); Hemoglobin 14.4 g/dL (12.0-15.0); Immature Granulocytes Count 0.020 X10^3/uL (0.0-0.0); Mean Corp Hgb Conc 32.8 g/dL (32-36); Mean Corpuscular Volume 88.9 fL (81-99); Mean Platelet Vol. 8.9 fl (6.2-12.0); NRBC Flagged by Analyzer 0 % (0-5); Platelet Count 296 K/mm3 (150-450); RBC Distribution Width CV 13.1 % (11.6-14.6); RBC Distribution Width SD 42.4 fl (35.1-43.9); Red Blood Count 4.94 M/mm3 (4.2-5.4); White Blood Count 5.6 K/mm3 (4.4-11.0)
--- NOTE | 2024-11-20 08:52 | RAD_ITS ---
PROCEDURE: CHEST PA AND LATERAL 11/20/2024 REASON FOR EXAM: HYPERTENSION TECHNIQUE: Procedure Code: RADCXR Modality: DX Procedure: CHEST PA AND LATERAL COMPARISON: September 24, 2019 FINDINGS: Hardware: EKG leads Heart: Mildly enlarged. Aorta is atherosclerotic. Mediastinum: No mass Lungs: Clear. No pneumothorax or pleural effusion. Bones: Mild degenerative change about the shoulders. Mild degenerative change of the spine. RAD/Chest PA and Lateral IMPRESSION: Mild cardiac enlargement. Reading Location: [id number]
[2024-11-20 08:59] LABS: Anion Gap 17 (5-15); BUN 15 mg/dL (4-19); BUN/Creat Ratio 30.4 RATIO (10-20); Calcium,Total 10.0 mg/dL (7.6-11.0); Carbon Dioxide 22.1 mmol/L (21.0-32.0); Chloride 105 mmol/L (98-108); Estimated Creatinine Clearance 40.98 ml/min (50-250); Glucose 92 mg/dL (70-99); Potassium 3.6 mmol/L (3.3-5.1); Troponin T High Sensitivity 44 ng/L (<=14)
[2024-11-20 09:34] LABS: Mucous, Urine 0 SEEN /hpf (<or=2+); Red Blood Cells-Urine 0 SEEN /hpf (0-5)
[2024-11-20 09:45] LABS: Color, Urine Yellow (Yellow); Glucose, Dipstick Normal (Normal); Ketone-Dipstick Negative (Negative); Leukocyte Esterase-Dipstick Negative /ul (Negative); Nitrite-Dipstick Negative (Negative); Occult Blood-Urine 10 /ul (Negative); Protein-Dipstick 15 mg/dl (Negative); Specific Gravity, Urine 1.010 (1.002-1.030); Urine Bilirubin Dipstick Negative (Negative)
[2024-11-20 09:51] LABS: Squamous Epithelial Cells - UA 0-5 SEEN /hpf (5-10)
[2024-11-20 10:33] LABS: Troponin T High Sens 2 HR 42 ng/L (<=14)
== END 2024-11-20 12:24 | disposition home or self-care (01) ==
PROVIDERS: Emergency Provider Emergency Medicine; PCP Family Medicine; Visit Provider Emergency Medicine
DX: I10 Essential (primary) hypertension (principal); G20.A1 Parkinson's disease without dyskinesia, without mention of fluctuations; E11.9 Type 2 diabetes mellitus without complications; Z87.891 Personal history of nicotine dependence; E78.5 Hyperlipidemia, unspecified; R11.2 Nausea with vomiting, unspecified; I25.2 Old myocardial infarction; Z79.899 Other long term (current) drug therapy; Z96.643 Presence of artificial hip joint, bilateral; Z90.49 Acquired absence of other specified parts of digestive tract
CPT/HCPCS: 70450; 71046; 80048; 81001; 84484; 85025; 93005; 96374; 96375; 99285; A4216

== ENCOUNTER 2024-12-26 13:00 | Outpatient (RCR) | payer MEDICARE, SELFPAY ==
--- NOTE | 2024-11-05 15:33 | HP.PTEVAL ---
Patient's Visit Information Visit Information Visit Information: DELFINA AVILA is a 89 year old F referred to Physical Therapy by Dr. Pollo Caal MD with a diagnosis of PD/LBP. Date of Evaluation: 11/05/24 Physical Therapist: PAUL Whittaker Visit Plan Frequency: 2x /Week Duration: 2 Months Plan: 2X/ week for 8 weeks for neutral spine core stability, postural exercises, gait training with rollator with her walking more inside it, heel to toe gait pattern, and try less trunk flexion), Transfers, dual tasking sitting or standing opp arm and leg with counting or colors etc with HEP Subjective Subjective: Pt lives in [place]. She does not drive. She was dx a few years ago. She is on PD meds. She always uses her rollator. She has had no falls in the past year. She is struggling mostly with walking and getting around. She does the nu-step at her place and she does a senior class at her place also. 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 They have done different kinds of things for it and the pain is there no matter what. She also has RA/osteopenia. Her back pain is not good in standing. She is ok with laying down or sitting. Her back pain with walking is a lot of effort. Pain Back pain: Pain Intensity (Out of 10): 0 Objective Objective: Gait: walks with a rollator with arms outstretched with steppage gait and no heel to toe gait pattern. Sit to stand: needs B UE and decrease weight shift FW with standing but can do it on first attempt Standing up straight at walker causes increase back pain Standing side stepping along the wall, ot felt she had to bend FW to side step nSW B LE MMT: R hip flexion 9.8 and L 8.2 R knee ext 15.8 and L 13.3 R knee flex 12.3 and L 8.5 Standing heel and toe raises at rollator: able to heel raise but not toe raise Sitting opp arm and leg X 6 in a row unless she talks and then she reverts back. Balance/Special Test Scores Lower Extremity Functional Score: 22 Goals Goal 1:: I HEP Goal Time Frame: 6-8 Weeks Goal 2:: Be able to walk with rollator with more heel to toe gait pattern and arms not so outstretched Goal Time Frame: 6-8 Weeks Goal 3:: Be able to stand up straight without having immed back pain Goal Time Frame: 6-8 Weeks Goal 4:: Increase LE strength (at the time of the eval: LE MMT: R hip flexion 9.8 and L 8.2 R knee ext 15.8 and L 13.3 R knee flex 12.3 and L 8.5) Goal Time Frame: 6-8 Weeks Rehabilitation Potential Rehabilitation Potential: Good Anticipated Interventions Patient/Client Instruction: Educate patient on: Condition and Plan of Care For the Purpose of:: To decrease pain, To increase ROM, To improve muscle performance and motor function, To improve ability to perform ADL's, To increase tolerance to activity/condition/position, To improve performance and independence with ADL's, To improve ability of physical actions for home/community/work/leisure, To improve gait and locomotor functions, To improve health of tissue, To decrease soft tissue restriction and To increase flexibility/ROM Therapeutic Exercise to Include: Strength training, Endurance training, Balance training, Postural training, Gait and locomotor training, Neuromotor development, Active ROM, Dynamic Lumbar Stabilization and Scapular Strength/Stabilization For the Purpose of:: To decrease pain, To increase ROM, To improve muscle performance and motor function, To improve ability to perform ADL's, To increase tolerance to activity/condition/position, To improve performance and independence with ADL's, To decrease level of supervision to perform tasks, To improve ability of physical actions for home/community/work/leisure, To improve gait and locomotor functions, To improve health of tissue, To decrease soft tissue restriction, To increase flexibility/ROM, To improve endurance, To improve balance and To improve safety with gait Functional Training to Include: Gait training For the Purpose of:: To improve gait and locomotor functions and To improve safety with gait Text: Thank you for the opportunity to evaluate your patient. For Medicare and Medicare HMO plans, please review the plan of care and approve it. It will need to be FAXED BACK to us at [phone] for Medicare purposes. For Medicare only, by signing this I certify the plan of care. Please let me know if there are questions or concerns regarding this plan of care. Physician Signature: Date:
--- NOTE | 2024-12-05 16:24 | HP.PTREVAL ---
Re-Evaluation Intro: Dr. Pollo Caal MD, It has been my pleasure to treat DELFINA AVILA over the last 9 visits for PD/LBP. Please see the progress note below for an update on the physical therapy plan of care! Subjective Subjective: Therapy wipes her out for the rest of the day and then the next day she has some energy. Pt feels not so stiff with walking and she is able to hold herself more upright. She feels that she is walking better. She reports that walking is hard. She is doing exercises at home and feels it if she does not do the exercises. Se goes the Nu-step at home almost everyday. She has exercise class 3-5 times a week. She has no pain in her back with sitting or standing for awhile. She reports that she needs her walker at all times. She still wants to work on walking and getting her back stronger. She lives at [place]. Objective Objective/Function: MMT: R hip flexion 10 and L 10.1 R knee ext 17.4 and L 18.2 R knee flex 12.3 and L 9.8 Gait: with rolling walker X 1 lap around the entire dept with arms outstretched but a little less flexion and walker out in front of her and walked it in 2 min and 59 seconds. Sit to stand: pt very slow to get up from a regular chair with UE support Plan Plan Plan: Give HEP over next few weeks and continue to increase core and hip strength, walking endurance/posture. We will contact pt regarding observing PD class. 2X/ week for 3 weeks for neutral spine core stability, postural exercises, gait training with rollator with her walking more inside it, heel to toe gait pattern, and try less trunk flexion, Transfers, dual tasking sitting or standing opp arm and leg with counting or colors etc with HEP. Balance/Gait/Functional tests Balance/Special Test Scores Lower Extremity Functional Score: 23 Goals Goals Goal 1:: I HEP Goal Time Frame: 6-8 Weeks Goal Progress: Goal Met Goal 2:: Be able to walk with rollator with more heel to toe gait pattern and arms not so outstretched Goal Time Frame: 6-8 Weeks Goal Progress: Progressing Goal 3:: Be able to stand up straight without having immed back pain Goal Time Frame: 6-8 Weeks Goal Progress: Progressing Goal 4:: Increase LE strength (at the time of the eval: LE MMT: R hip flexion 9.8 and L 8.2 R knee ext 15.8 and L 13.3 R knee flex 12.3 and L 8.5) Goal Time Frame: 6-8 Weeks Goal Progress: Progressing Goal 5:: Be able to sit to stand X 5 in a row from the chair seat and 1 UE support Anticipated Interventions Anticipated Interventions Patient/Client Instruction: Educate patient on: Condition and Plan of Care For the Purpose of:: To decrease pain, To increase ROM, To improve muscle performance and motor function, To improve ability to perform ADL's, To increase tolerance to activity/condition/position, To improve performance and independence with ADL's, To improve ability of physical actions for home/community/work/leisure, To improve gait and locomotor functions, To improve health of tissue, To decrease soft tissue restriction and To increase flexibility/ROM Therapeutic Exercise to Include: Strength training, Endurance training, Balance training, Postural training, Gait and locomotor training, Neuromotor development, Active ROM, Dynamic Lumbar Stabilization and Scapular Strength/Stabilization For the Purpose of:: To decrease pain, To increase ROM, To improve muscle performance and motor function, To improve ability to perform ADL's, To increase tolerance to activity/condition/position, To improve performance and independence with ADL's, To decrease level of supervision to perform tasks, To improve ability of physical actions for home/community/work/leisure, To improve gait and locomotor functions, To improve health of tissue, To decrease soft tissue restriction, To increase flexibility/ROM, To improve endurance, To improve balance and To improve safety with gait Functional Training to Include: Gait training For the Purpose of:: To improve gait and locomotor functions and To improve safety with gait Re-Evaluation Ending Re-evaluation ending: Please do not hesitate to contact me at [phone] by phone or if you have questions or concerns regarding this new plan of care! Sincerely, PAUL Whittaker
--- NOTE | 2024-12-26 13:51 | HP.PTDCSUM_ITS ---
Discharge Summary D/C summary: It has been my pleasure to treat DELFINA AVILA referred by Dr. Pollo Caal MD, with the diagnosis of PD/LBP for a total of 15 visit(s). Discharge Date: 12/26/24 Please see the following information for a summary of their discharge status. Subjective Subjective: Pt felt that she was pushed to her limit while she was in here. She feels that she is frustrated cause she feels she should be doing better. This has helped her to set up and ongoing program for herself. She lives at [place] and going to try and get a group set up to talk to others that have it. Sometimes her legs feel heavy with walking. She does the Nu-[employer] daily for 30 min now at [place]. She does her HEP at least once a day and sometimes twice a day. 5 days out of the week she does another class with an instructor that helps her with exercise. Liborio plans to increase her walking at [place]. Pain Back pain: Pain Intensity (Out of 10): 5 Overall Improvement % Improvement: 40 Objective Objective/Function: Gait: USES a rollator with arms outstretched and flexed trunk Sit to stand: her back pain is better when she stands up. Sit to stand X 5 on first attempt using 2 arms to get up. She stands up with flexed trunk and needs UE support to stand up She us unable to side step without UE support. MMT: R hip flexion 9.8 and L 6.7 R knee ext 15.8 and L 13.3 R knee flex 12.3 and L 11.1 Goals Goal 1:: I HEP Goal Progress: Goal Met Goal 2:: Be able to walk with rollator with more heel to toe gait pattern and arms not so outstretched Goal Progress: Progressing Goal 3:: Be able to stand up straight without having immed back pain Goal Progress: Progressing Goal 4:: Increase LE strength (at the time of the eval: LE MMT: R hip flexion 9.8 and L 8.2 R knee ext 15.8 and L 13.3 R knee flex 12.3 and L 8.5) Goal Progress: Not Progressing Goal 5:: Be able to sit to stand X 5 in a row from the chair seat and 1 UE support Goal Progress: Goal Met Plan Plan: DC PT to HEP D/C Information Discharge Comments: DC PT to HEP and will look into PD class d/c sentence: If there are questions or concerns regarding this patient's physical therapy, please feel free to call me at [phone]. Thank you for the referral of this patient. Sincerely, Apurva Oswald, MPT Balance/Gait/Functional tests Balance/Special Test Scores Lower Extremity Functional Score: 17 Improvement % Improvement: 40
== END 2024-12-26 14:46 | disposition home or self-care (01) ==
LOC: PT 13:00
PROVIDERS: PCP Family Medicine; Referring Provider Psychiatry & Neurology Neurology; Visit Provider Psychiatry & Neurology Neurology
DX: G20.A1 Parkinson's disease without dyskinesia, without mention of fluctuations (principal); M54.50 Low back pain, unspecified
CPT/HCPCS: 97110; 97116; 97140; 97162; 97530

== ENCOUNTER → 2024-12-26 | Outpatient (REF) | payer MEDICARE, SELFPAY ==
[2024-12-26 09:49] LABS: Cholesterol 244 mg/dL (<=200); Low Density Lipoprotein Calc. 131 mg/dL; Triglycerides 118 mg/dL; Very Low Density Lipoprotein 24 mg/dL (5-40); Vitamin D,25 Hydroxy 55.7 ng/mL (30-100); cholesterol:hdl ratio screen 2.72
== END ==
PROVIDERS: PCP Family Medicine; Visit Provider Family Medicine
DX: E03.9 Hypothyroidism, unspecified (principal); E78.5 Hyperlipidemia, unspecified; E55.9 Vitamin D deficiency, unspecified; R73.01 Impaired fasting glucose
CPT/HCPCS: 36415; 80061; 82306; 83036; 84439; 84443